=== PATIENT | male | born 1950 | race Caucasian/White ===

== ENCOUNTER 2021-01-07 12:35 | Outpatient (CLI) | payer MEDICARE, BC, SELFPAY | END 2021-01-07 12:36 | disposition home or self-care (01) | LOC: CHSLAB 12:36 | PROVIDERS: Visit Provider Specialist | DX: L85.9 Epidermal thickening, unspecified (principal) | CPT/HCPCS: 88305 ==

== ENCOUNTER 2024-10-23 10:42 | Emergency (ER) | payer MEDICARE, SELFPAY ==
[2024-10-23] VITALS (16 sets, daily range): BP systolic 120–144; BP diastolic 90–111; PULSE 80–116; RESP 18–27; TEMP 36.5–36.6; O2SAT 92–98
--- NOTE | ~2024-10-23 | XR_ITS ---
EXAMINATION: XR chest 1V portable Exam Date/Time: 10/23/2024 11:00 CDT HISTORY: chest pain, SOB, chest heaviness, congestion Comparison: None. RESULT: Lines, tubes, and devices: None. Lungs and pleura: Mid and lower lung reticular and patchy airspace opacities bilaterally. Mild right costophrenic angle blunting. Cardiomediastinal silhouette: Unremarkable. Other: No acute osseous or upper abdominal finding. IMPRESSION: Patchy mid and lower lung and bilateral airspace disease may represent edema or infection overlying c hronic interstitial/emphysematous change. Reviewed, dictated and finalized at [facility]. IMPRESSION: Patchy mid and lower lung and bilateral airspace disease may represent edema or infection overlying chronic interstitial/emphysematous change.
--- NOTE | ~2024-10-23 | CT_ITS ---
Clinical Indication: Chest pain CT Scan of the Chest with Contrast: Technique: Contiguous sections were acquired throughout the chest after intravenous administration of 100 cc of Omnipaque 350. Dose reduction technique was used on this scan by utilizing automated expos ure control and iterative reconstruction technique. The dose-length product (DLP) was 318.51 mGy-cm. Findings: There is no evidence of any significant mediastinal, hilar or axillary lymphadenopathy. There is no f illing defect in the pulmonary arterial tree to suggest pulmonary embolus. There is no evidence of ao rtic aneurysm. No pericardial effusion. There are moderate bilateral pleural effusions. Patchy groundglass opacities in the aerated lungs is most compatible with pulmonary edema. Mild interstitial edema as well. Images through the upper abdomen reveal no abnormalities. Impression: No pulmonary embolus. Moderate bilateral pleural effusions with mild mixed alveolar and interstitial pulmonary edema. Reviewed, dictated and finalized at [facility]. Impression: No pulmonary embolus. Moderate bilateral pleural effusions with mild mixed alveolar and interstitial pulmonary edema.
--- NOTE | 2024-10-23 10:55 | ECG_ITS ---
Test Date: 2024-10-23 10:52:37 Measurements Intervals [place] Rate: 112 P: 57 IN: 159 QRS: 55 QRSD: 102 T: 80 QT: 319 QTc: 436 Interpretive Statements SINUS TACHYCARDIA ABNORMAL RHYTHM ECG No previous ECG available for comparison Electronically Signed On 10-23-2024 22:17:59 CDT by Arnold Henry M.D.
[2024-10-23 11:15] LABS: Hematocrit 37.9 % (37.0-46.0); Hemoglobin 12.2 g/dL (12.4-15.3); Immature Granulocyte Percent A 0.4 % (0.0-0.0); Lymphocytes Absolute Auto 1.27 K/mm3 (1.10-4.50); Mean Corpuscular HGB Conc 32.2 g/dL (32-36); Mean Corpuscular Hemoglobin 29.5 pg (27.0-31.0); Mean Corpuscular Volume 91.8 fL (78.0-102.0); Nucleated Red Blood Cells Absolute Auto 0.00 K/mm3 (0.00-0.00); Nucleated Red Blood Cells Perc 0.0 % (0-0.0); Platelet Count Result 317 K/mm3 (150-420); Red Blood Count 4.13 M/mm3 (4.70-6.10); White Blood Count 8.5 K/mm3 (4.8-10.8)
[2024-10-23 11:28] LABS: Alanine Aminotransferase 40 U/L (6-50); Albumin Level 4.2 g/dL (3.5-5.1); Alkaline Phosphatase 91 U/L (38-126); Anion Gap 10 mmol/L (4-12); Aspartate Amino Transferase 45 U/L (17-59); Bilirubin,Total 0.9 mg/dL (0.2-1.3); Blood Urea Nitrogen 27 mg/dL (9-20); Calcium 9.0 mg/dL (8.4-10.2); Carbon Dioxide 23 mmol/L (22-30); Chloride 101 mmol/L (98-107); Estimated CRCL calculation 36 ml/min; Estimated Glomerular Filt Rate 49; Glucose 115 mg/dL (65-110); Lipase 63 U/L (23-300); Osmolality Calculated 284 mOsm/kg (285-295); Potassium 4.6 mmol/L (3.4-5.0); Sodium 134 mmol/L (137-145); Total Protein 7.4 g/dL (6.3-8.2)
--- NOTE | 2024-10-23 11:29 | PC.NURSE ---
PATIENT IS RESTING ON STRETCHER. CALL LIGHT IN REACH. DENIES ANY OTHER NEEDS AT THIS TIME.
[2024-10-23 11:30] LABS: INR 1.1; Partial Thromboplastin Time 24.2 Sec (23.9-30.70); Prothrombin Time 12.5 Seconds (9.50-12.1)
[2024-10-23 11:40] LABS: NT Pro B Type Natriuretic Pept 20900 pg/mL (19.9-100); Troponin I 0.026 ng/mL (0.000-0.034)
[2024-10-23 11:50] LABS: Influenza A QL RT-PCR Negative (Negative); Influenza B QL RT-PCR Negative (Negative); RSV RNA, RT-PCR Negative (Negative); SARS-CoV-2 RNA PCR Negative (Negative)
[2024-10-23 12:08] LABS: Add Urine Microscopic? YES; Appearance Urine Clear (Clear); Glucose Urine UA Negative (Negative); Leukocyte Esterase Ur Negative LEU/UL (Negative); Nitrate Urine Negative (Negative); Specific Grav Ur >= 1.030 (1.010-1.020)
--- NOTE | 2024-10-23 12:21 | PC.NURSE ---
PATIENT TRANSPORTED TO RADIOLOGY VIA WHEEL CHAIR
[2024-10-23] MEDS: FUROSEMIDE INJ 40 MG/4 ML VIAL IV PUSH (12:32)
--- NOTE | 2024-10-23 12:36 | PC.NURSE ---
PATIENT WAS GIVEN URINAL. PATIENT IS CALL OUT FOR ASSISTANCE. PATIENT IS AWARE THAT LASIX WILL MAKE HIM HAVE TO VOID. CALL LIGHT IN REACH
[2024-10-23] MEDS: METOPROLOL TARTRATE INJ 5 MG/5 ML VIAL IV PUSH (13:23)
--- NOTE | 2024-10-23 13:30 | PC.NURSE ---
PATIENT GETTING ANNOYED THAT HE IS STILL IN THE ED. PATIENT IS WANTING TO GO HOME.
[2024-10-23 14:09] LABS: Troponin I 0.036 ng/mL (0.000-0.034)
--- NOTE | 2024-10-23 14:15 | PC.NURSE ---
PATIENT IS WANTING TO LEAVE AMA. DR WRIGHT HAS BEEN NOTIFIED.
[2024-10-23] MEDS: ASPIRIN 81 MG CHEWABLE TABLET 324 MG PO (14:21)
--- NOTE | 2024-10-23 14:24 | ED_ITS ---
HPI - SOB/Dyspnea General Chief Complaint: Shortness of Breath/Dyspnea Stated Complaint: chest pain Time Seen by Provider: 10/23/24 10:47 Source: patient Mode of arrival: ambulatory Limitations: no limitations History of Present Illness HPI Narrative: this is a 74-year-old male with no significant past medical history but has not seen a doctor in nearly 10 years, presents with shortness of breath with some chest discomfort no fever chills no cough or congestion with some mild peripheral edema. MD elicited complaint: shortness of breath Onset (ago): day(s) Timing: intermittent Severity: moderate Related Data Home Medications ?Medication ?Instructions ?Recorded ?Confirmed ?Last Taken ?Type No Home Medications 10/23/24 10/23/24 Unknown History Allergies Allergy/AdvReac Type Severity Reaction Status Date / Time No Known Allergies Allergy Verified 10/23/24 11:12 Review of Systems 2 Review of Systems: All systems reviewed & are unremarkable except as noted in HPI and below PMFSH Past Medical History Medical History Patient denies medical problems Exam 2 Const: General: no acute distress Nutritional Appearance: well nourished Orientation/consciousness: patient oriented x3 HENMT: Head: normal to inspection Neck: Neck: normal visual inspection, no lymphadenopathy and no meningeal signs Resp: Effort & Inspection: normal respiratory effort Auscultation: d iminished lung sounds Cardio: Rate: tachycardic Rhythm: regular rhythm GI: GI Palp: Yes Soft to palpation Auscultation: normal bowel sounds : General: Yes bladder normal to palpation Skin: General skin exam: normal color Rashes: no rashes Wounds: no wounds Neuro: General: patient oriented x3, moves all extremities, no meningeal signs and no focal motor deficits Extrem: General: edema Course Course Emergency Course: patient has elevated D-dimer and CTA performed which shows bilateral pleural effusions, his BNP was over 20,000, patient did receive IV Lasix and with EKG showing no ST or T changes but sinus tachycardia received 5mg IV metoprolol and current heart rate is 93, vital signs blood pressure 120/98 troponins have initially a 0.026 and subsequent troponin 0.036 patient adamant about leaving and does not want to go anywhere and does not want to be transferred and patient wants to sign out AMA. Id clear that I have personally explained to the patient the risks and consequences involved in leaving this facility at this time the benefits of continued treatment and our hospitalization and the alternatives if any to continued treatment and our hospitalization if applicable. I have not identified any psychosis drugs or mental illness or medical illness that alters decision-making capacity or wheezing ability. Vital Signs Vital signs: Vital Signs Temperature 36.5 C 10/23/24 10:42 Pulse Rate 114 H 10/23/24 10:42 Respiratory Rate 18 10/23/24 10:42 Blood Pressure 132/99 H 10/23/24 10:42 Pulse Oximetry 97 10/23/24 10:42 Oxygen Delivery Room Air 10/23/24 10:42 Temperature 36.5 C 10/23/24 10:42 Pulse Rate 93 10/23/24 13:30 Respiratory Rate 24 H 10/23/24 13:30 Blood Pressure 124/99 H 10/23/24 13:26 Pulse Oximetry 92 10/23/24 13:30 Oxygen Delivery Room Air 10/23/24 13:30 MDM - SOB/Dyspnea Lab Data 10/23/24 11:07 10/23/24 11:07 Labs: Lab Results 10/23/24 10/23/24 10/23/24 Range/Units 10:55 11:07 11:07 WBC 8.5 (4.8-10.8) K/mm3 RBC 4.13 L (4.70-6.10) M/mm3 Hgb 12.2 L (12.4-15.3) g/dL Hct 37.9 (37.0-46.0) % MCV 91.8 (78.0-102.0) fL MCH 29.5 (27.0-31.0) pg MCHC 32.2 (32-36) g/dL RDW 13.9 (11.6-14.4) % Plt Count 317 (150-420) K/mm3 MPV 8.7 (8.7-11.0) fl Immature Gran % (Auto) 0.4 H (0.0-0.0) % Neut % (Auto) 76.9 H (50.0-70.0) % Lymph % (Auto) 14.9 L (18.0-42.0) % [place] % (Auto) 6.8 (2.0-11.0) % Eos % (Auto) 0.5 L (1.0-6.0) % Baso % (Auto) 0.5 (0.0-1.0) % Lymph # (Auto) 1.27 (1.10-4.50) K/mm3 [place] # (Auto) 0.58 (0.10-0.90) K/mm3 Eos # (Auto) 0.04 (0.02-0.50) K/mm3 Baso # (Auto) 0.04 (0.00-0.10) K/mm3 Abs Immat Gran (auto) 0.03 H (0.00-0.00) K/mm3 Absolute Neuts (auto) 6.58 (1.70-7.20) K/mm3 Absolute Nucleated RBC 0.00 (0.00-0.00) K/mm3 Nucleated RBC % 0.0 (0-0.0) % PT 12.5 H (9.50-12.1) Seconds INR 1.1 APTT 24.2 (23.9-30.70) Sec D-Dimer 1.38 H (0.19-0.50) mg/L Sodium 134 L (137-145) mmol/L Potassium 4.6 (3.4-5.0) mmol/L Chloride 101 (98-107) mmol/L Carbon Dioxide 23 (22-30) mmol/L Anion Gap 10 (4-12) mmol/L BUN 27 H (9-20) mg/dL Creatinine 1.41 H (0.7-1.3) mg/dL Estim Creat Clear Calc 36 ml/min Estimated GFR 49 L (59 - ) Glucose 115 H (65-110) mg/dL Calculated Osmolality 284 L (285-295) mOsm/kg Calcium 9.0 (8.4-10.2) mg/dL Total Bilirubin 0.9 (0.2-1.3) mg/dL AST 45 (17-59) U/L ALT 40 (6-50) U/L Alkaline Phosphatase 91 (38-126) U/L Troponin I 0.026 (0.000-0.034) ng/mL NT-Pro-B Natriuret Pep 53374 H Cancelled (19.9-100) pg/mL Total Protein 7.4 (6.3-8.2) g/dL Albumin 4.2 (3.5-5.1) g/dL Lipase 63 (23-300) U/L Urine Color Yellow (Yellow) Urine Appearance Clear (Clear) Urine pH 5.5 (5.0-8.0) Ur Specific [place] >= 1.030 H (1.010-1.020) Urine Protein 2+ H (Negative) Urine Glucose (UA) Negative (Negative) Urine Ketones 1+ H (Negative) Ur Blood (Man) Negative (Negative) Urine Nitrate Negative (Negative) Urine Bilirubin Negative (Negative) Urine Urobilinogen 0.2 (0.2-1.0) mg/dL Leukocyte Esterase Rfl Negative (Negative) SHAUN/UL Urine RBC None seen (0-2) /hpf Urine WBC None seen (0-3) /hpf Urine Bacteria Trace (None) /hpf Hyaline Casts 5-9 H (None) /lpf Granular Casts 1-2 H (None) /lpf Influenza A (RT-PCR) Negative (Negative) Influenza B (RT-PCR) Negative (Negative) RSV (RT-PCR) Negative (Negative) SARS-CoV-2 RNA (RT-PCR) Negative (Negative) 10/23/24 Range/Units 13:41 WBC (4.8-10.8) K/mm3 RBC (4.70-6.10) M/mm3 Hgb (12.4-15.3) g/dL Hct (37.0-46.0) % MCV (78.0-102.0) fL MCH (27.0-31.0) pg MCHC (32-36) g/dL RDW (11.6-14.4) % Plt Count (150-420) K/mm3 MPV (8.7-11.0) fl Immature Gran % (Auto) (0.0-0.0) % Neut % (Auto) (50.0-70.0) % Lymph % (Auto) (18.0-42.0) % [place] % (Auto) (2.0-11.0) % Eos % (Auto) (1.0-6.0) % Baso % (Auto) (0.0-1.0) % Lymph # (Auto) (1.10-4.50) K/mm3 [place] # (Auto) (0.10-0.90) K/mm3 Eos # (Auto) (0.02-0.50) K/mm3 Baso # (Auto) (0.00-0.10) K/mm3 Abs Immat Gran (auto) (0.00-0.00) K/mm3 Absolute Neuts (auto) (1.70-7.20) K/mm3 Absolute Nucleated RBC (0.00-0.00) K/mm3 Nucleated RBC % (0-0.0) % PT (9.50-12.1) Seconds INR APTT (23.9-30.70) Sec D-Dimer (0.19-0.50) mg/L Sodium (137-145) mmol/L Potassium (3.4-5.0) mmol/L Chloride (98-107) mmol/L Carbon Dioxide (22-30) mmol/L Anion Gap (4-12) mmol/L BUN (9-20) mg/dL Creatinine (0.7-1.3) mg/dL Estim Creat Clear Calc ml/min Estimated GFR (59 - ) Glucose (65-110) mg/dL Calculated Osmolality (285-295) mOsm/kg Calcium (8.4-10.2) mg/dL Total Bilirubin (0.2-1.3) mg/dL AST (17-59) U/L ALT (6-50) U/L Alkaline Phosphatase (38-126) U/L Troponin I 0.036 H* D (0.000-0.034) ng/mL NT-Pro-B Natriuret Pep (19.9-100) pg/mL Total Protein (6.3-8.2) g/dL Albumin (3.5-5.1) g/dL Lipase (23-300) U/L Urine Color (Yellow) Urine Appearance (Clear) Urine pH (5.0-8.0) Ur Specific [place] (1.010-1.020) Urine Protein (Negative) Urine Glucose (UA) (Negative) Urine Ketones (Negative) Ur Blood (Man) (Negative) Urine Nitrate (Negative) Urine Bilirubin (Negative) Urine Urobilinogen (0.2-1.0) mg/dL Leukocyte Esterase Rfl (Negative) SHAUN/UL Urine RBC (0-2) /hpf Urine WBC (0-3) /hpf Urine Bacteria (None) /hpf Hyaline Casts (None) /lpf Granular Casts (None) /lpf Influenza A (RT-PCR) (Negative) Influenza B (RT-PCR) (Negative) RSV (RT-PCR) (Negative) SARS-CoV-2 RNA (RT-PCR) (Negative) Critical Care Time Critical Care Time Critical Care Time: No Discharge Plan Discharge Clinical Impression: Elevated troponin Patient Disposition: Left Against Medical Advice Condition: Stable Patient Language: Faroese Prescriptions: No Action No Home Medications Follow-up/Referrals: Bo Rodriguez MD [Primary Care Provider] - Time of Disposition: 14:29
--- NOTE | 2024-10-23 14:30 | PC.NURSE ---
PATIENT SIGNED AMA FORM. CONTINUES TO WANT TO LEAVE. ENCOURAGED PATIENT TO STAY FOR CONTINUED MONITORING. PATIENT WAS GIVEN AND EDUCATED ON RISKS AND BENEFITS OF LEAVING AMA. PATIENT VERBALIZED UNDERSTANDING FROM DR WRIGHT AND NURSING STAFF
--- NOTE | 2024-10-25 12:22 | PC.NURSE ---
PRELIMINARY BLOOD CULTURE NO GROWTH TO DATE
--- NOTE | 2024-10-30 12:15 | PC.NURSE ---
Final blood culture report; no growth in 5 days.
== END 2024-10-23 14:35 | disposition left against medical advice (07) ==
PROVIDERS: Emergency Provider Emergency Medicine; PCP Family Medicine
DX: R79.89 Other specified abnormal findings of blood chemistry (principal); Z20.822 Contact with and (suspected) exposure to COVID-19
CPT/HCPCS: 36415; 71045; 71275; 80053; 81001; 83690; 83880; 84484; 85025; 85380; 85610; 85730; 87040; 87637; 93005; 96374; 96375; 99284; A9270; J0616; J1938; Q9967

== ENCOUNTER 2024-10-30 09:38 | Emergency (ER) | payer MEDICARE, SELFPAY ==
[2024-10-30] VITALS (82 sets, daily range): BP systolic 116–146; BP diastolic 65–113; PULSE 87–101; RESP 18–34; TEMP 36.6–36.7; O2SAT 92–100
--- NOTE | ~2024-10-30 | XR_ITS ---
XR chest 1V portable Ordering provider: Reed Dean MD History: 74 years Male with . EXTREME SOB . Comparison: November 02, 2024 FINDINGS: MEDIASTINUM: The cardiac silhouette is moderately enlarged. Congestive augustina. LUNGS: No effusions or pneumothorax. Bilateral interstitial and alveolar thickening. Possible nodules in the right parahilar area. Follow-up advised. OTHER: No free air under the diaphragm. IMPRESSION: Cardiomegaly with congestive augustina. Bilateral alveolar and interstitial opacification which may indicate pulmonary edema. Possible nodules in the right parahilar area. Follow-up advised Reviewed, dictated and finalized at location A.
--- NOTE | ~2024-10-30 | CT_ITS ---
EXAMINATION: CT abdomen pelvis wo con DATE: 10/30/2024 11:23 INDICATION: Elevated liver enzymes TECHNIQUE: Computed tomography (CT) of the abdomen and pelvis was performed without intravenous contr ast. Automated exposure control and iterative reconstruction technique were employed. The dose-length product was 301.69 mGy-cm. COMPARISON: Chest CT dated 10/23/2024 FINDINGS: No significant change in peripheral predominant reticulonodular opacities at the bilateral lung bases and small bilateral posterior layering pleural effusions. Cardiomegaly. Atherosclerotic coronary art ayla calcific location. No pericardial effusion. Diffuse hepatic steatosis. Small amount of fluid atte nuation situated between the normal partially decompressed gallbladder and the liver at the gallbladd er fossa which could represent small amount of pericholecystic fluid or mild edematous wall thickenin g of the gallbladder. No evident intra-axial hepatic biliary ductal dilation. The spleen, pancreas an d bilateral adrenal glands are normal. Prominent scattered diverticulosis throughout the colon withou t adjacent from trace stranding to suggest diverticular colitis. Small bowel and appendix are normal. Bladder is normal. Prostatomegaly measuring 4.1 x 3.1 cm. Fat and small amount of ascites within a s mall right femoral hernia. No pathologically enlarged abdominal or pelvic lymphadenopathy. Multiple p hleboliths in the pelvis. Prominent heterotopic ossifications near the tip of the right greater troch anter. Mild scattered degenerative skeletal changes in the pelvis and visualized spine. IMPRESSION: 1. Persistent reticular nodular opacities at the bilateral lung bases which could represent chronic i nterstitial lung disease or some more acute combination of atelectasis, mild pulmonary edema and/or p neumonia. 2. Small bilateral pleural effusions. 3. Cardiomegaly. 4. Mild edematous wall thickening of the partially decompressed gallbladder versus small amount of pe richolecystic fluid at the bladder fossa. No surrounding inflammatory stranding which along with the absence of gallbladder dilation argues against acute cholecystitis. This can be seen secondary to baljeet er disease or congestive heart failure. 5. Diffuse hepatic steatosis. 6. Diverticulosis. 7. Prostatomegaly. 8. Small amount of fat and fluid within a small right femoral hernia. Reviewed, dictated and finalized at location A. IMPRESSION: 1. Persistent reticular nodular opacities at the bilateral lung bases which cou ld represent chronic interstitial lung disease or some more acute combination o f atelectasis, mild pulmonary edema and/or pneumonia. 2. Small bilateral pleural effusions. 3. Cardiomegaly. 4. Mild edematous wall thickening of the partially decompressed gallbladder harrison gabriel small amount of pericholecystic fluid at the bladder fossa. No surrounding inflammatory stranding which along with the absence of gallbladder dilation arg ues against acute cholecystitis. This can be seen secondary to liver disease or congestive heart failure. 5. Diffuse hepatic steatosis. 6. Diverticulosis. 7. Prostatomegaly. 8. Small amount of fat and fluid within a small right femoral hernia.
--- NOTE | ~2024-10-30 | XR_ITS ---
XR abdomen/kub 1V Ordering provider: Reed Dean MD History: . Constipation X 4 days . Comparison: None. FINDINGS: BOWEL: Fecal material is loaded in the colon. Nonobstructive bowel gas pattern. ORGANOMEGALY: None. SIGNIFICANT PATHOLOGIC CALCIFICATIONS: None. OTHER: No free air is seen under the diaphragm. Bilateral hip osteoarthritic changes. Bilateral sacroiliacs. Degenerative the spine. IMPRESSION: NO ACUTE ABDOMINAL FINDINGS. Constipation. Reviewed, dictated and finalized at location A.
--- NOTE | 2024-10-30 09:45 | ECG_ITS ---
Test Date: 2024-10-30 10:19:37 Measurements Intervals [place] Rate: 95 P: 46 [place]: 172 QRS: -8 QRSD: 105 T: 149 QT: 359 QTc: 453 Interpretive Statements SINUS RHYTHM CANNOT RULE OUT PREVIOUS INFERIOR INFARCTION NONSPECIFIC T-WAVE ABNORMALITY ABNORMAL ECG Compared to ECG 10/23/2024 10:52:37 LOSS OF R-WAVE VOLTAGE IN LEAD 3, LIKELY ALTER LEAD POSITION, NO OTHER CHANGE Electronically Signed On 10-31-2024 10:21:56 CDT by Romel Hardy M.D.
--- NOTE | 2024-10-30 09:45 | ED.SOB ---
HPI - SOB/Dyspnea General Chief Complaint: Shortness of Breath/Dyspnea Stated Complaint: edema Time Seen by Provider: 10/30/24 09:43 Source: patient Mode of arrival: ambulatory Limitations: no limitations History of Present Illness HPI Narrative: 74 years old white male came to the ED by private car from home complaining of shortness of breath for the last few days was seen in our emergency room on October 23 for the same complain, and was diagnosed with elevated troponin and patient left against medical advice.2 days later patient was seen by his family physician And was discharged on metoprolol 25 mg once a day, Lasix 20 mg once a day with a diagnosis of congestive heart failure. Patient reported getting a little bit better but his shortness of breath got worse over the last 3 days. Patient reports no bowel movement over the last 4 days, his not eating for the last 2 days because of poor appetite. He denies any chest pain back pain abdominal pain. Patient lives alone, healthy otherwise. He does not smoke or drink or use drugs Related Data Home Medications ?Medication ?Instructions ?Recorded ?Confirmed ?Last Taken ?Type apple cider vinegar 250 mg mg PO 10/25/24 10/25/24 Unknown History chewable tablet cinnamon bark 500 mg capsule 500 mg PO DAILY 10/25/24 10/25/24 Unknown History (Cinnamon) ginkgo biloba 40 mg tablet 40 mg PO DAILY 10/25/24 10/25/24 Unknown History pseudoephedrine-ibuprofen 30 cap PO 10/25/24 10/25/24 Unknown History mg-200 mg capsule (Advil Cold and Sinus) psyllium husk 0.4 gram capsule 0.4 g PO DAILY 10/25/24 10/25/24 Unknown History (Daily Fiber) resveratrol 100 mg capsule mg PO 10/25/24 10/25/24 Unknown History saw palmetto 450 mg capsule 450 mg PO BID 10/25/24 10/25/24 Unknown History Allergies Allergy/AdvReac Type Severity Reaction Status Date / Time No Known Allergies Allergy Verified 10/30/24 09:52 Review of Systems Review of Systems: All systems reviewed & are unremarkable except as noted in HPI and below PMFSH Past Medical History Medical History Acute bacterial sinusitis Patient denies medical problems Surgical History Surgical History History of tonsillectomy Hx of foot surgery History of facial surgery History of hernia surgery Family History Family History Father Heart disease Mother Heart disease Social History Social History Smoking status: Former smoker Smoking end date: 04/19/79 Alcohol intake: former Substance use: never Do You Feel Safe in your Home?: Yes Lack of Transportation: No Lack of Food: Never True Current Housing: I Have Housing Concerned About Future Housing: No Difficulty Paying Gas/Electric Bills: No Difficulty Paying for Meds: No Currently Unemployed: No Education: High School Diploma/GED Difficulty w/ Childcare or Family Care: No Living arrangements: alone Occupation/Education: retired Gender identity (if verbalized by the patient): Male Sexual Orientation (if Verbalized by the Patient): Straight or Heterosexual Spiritual care concerns: No Agree to blood products: Yes Exam Narrative: General appearance: Well-developed, well-nourished Skin: Normal color, trace edema lower extremity bilaterally Head: Normocephalic, nontraumatic Eyes: Clear conjunctiva ENT: Oropharynx normal, ears normal, nose normal Neck: Supple, nontender Chest and respiratory: Airway patent, no respiratory distress, no accessory muscle use Heart: Regular rate/rhythm Abdomen: Soft, nontender, no organomegaly, quiet bowel sounds Vascular: Normal peripheral pulses, normal capillary refill. 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, no gross motor deficit Course Vital Signs Vital signs: Vital Signs Temperature 36.7 C 10/30/24 09:46 Pulse Rate 98 10/30/24 09:46 Respiratory Rate 20 10/30/24 09:46 Blood Pressure 134/103 H 10/30/24 09:46 Pulse Oximetry 100 10/30/24 09:46 Oxygen Delivery Room Air 10/30/24 09:46 Temperature 36.6 C 10/30/24 21:30 Pulse Rate 94 10/30/24 21:30 Respiratory Rate 18 10/30/24 21:30 Blood Pressure 126/86 10/30/24 19:46 Pulse Oximetry 98 10/30/24 21:30 Oxygen Delivery Room Air 10/30/24 21:30 MDM - SOB/Dyspnea MDM Narrative Medical decision making narrative: patient presents with shortness of breath for a while and no bowel movement for the last 4 days Vital signs showing blood pressure 134/103 otherwise within normal limit Physical examination showing depressed patient, trace edema lower extremity bilaterally otherwise within normal limit Differential diagnosis include congestive heart failure, coronary artery disease, electrolyte imbalance, dehydration, constipation Blood workup today includes CBC, CMP, troponin, coag and pro BMP showed WBC 12.3, INR 1.7, potassium 5.8, anion gap 18, BUN 53, creatinine 3.2, total bilirubin 2.1, troponin of 0.045 EKG showed normal sinus rhythm Chest x-ray showed pulmonary edema Diagnosis CHF, elevated troponin, elevated liver enzyme, KASEY, hyperkalemia Patient declined to go to any facility except [facility]. Waiting for bed availability Patient has been in our emergency room for average 12 hours, getting tired, agreed to try another facility. He is accepted for transferred to [facility] discussed with hospitalist Differential Diagnosis Differential diagnosis: Likely other ( as above) Medical Records Attestation: I reviewed the patient's medical records. Lab Data Attestation: I reviewed the patient's lab results. 10/30/24 10:03 10/30/24 10:03 Labs: Lab Results 10/30/24 10/30/24 10/30/24 Range/Units 09:52 10:03 16:56 WBC 12.3 H (4.8-10.8) K/mm3 RBC 4.53 L (4.70-6.10) M/mm3 Hgb 13.5 (12.4-15.3) g/dL Hct 41.9 (37.0-46.0) % MCV 92.5 (78.0-102.0) fL MCH 29.8 (27.0-31.0) pg MCHC 32.2 (32-36) g/dL RDW 14.2 (11.6-14.4) % Plt Count 206 (150-420) K/mm3 MPV 9.5 (8.7-11.0) fl Immature Gran % (Auto) 0.8 H (0.0-0.0) % Neut % (Auto) 80.8 H (50.0-70.0) % Lymph % (Auto) 9.2 L (18.0-42.0) % [place] % (Auto) 9.0 (2.0-11.0) % Eos % (Auto) 0.0 L (1.0-6.0) % Baso % (Auto) 0.2 (0.0-1.0) % Lymph # (Auto) 1.13 (1.10-4.50) K/mm3 [place] # (Auto) 1.11 H (0.10-0.90) K/mm3 Eos # (Auto) 0.00 L (0.02-0.50) K/mm3 Baso # (Auto) 0.03 (0.00-0.10) K/mm3 Abs Immat Gran (auto) 0.10 H (0.00-0.00) K/mm3 Absolute Neuts (auto) 9.92 H (1.70-7.20) K/mm3 Absolute Nucleated RBC 0.00 (0.00-0.00) K/mm3 Nucleated RBC % 0.0 (0-0.0) % PT 18.0 H (9.50-12.1) Seconds INR 1.7 APTT 25.0 (23.9-30.70) Sec Sodium 139 (137-145) mmol/L Potassium 5.8 H (3.4-5.0) mmol/L Chloride 99 (98-107) mmol/L Carbon Dioxide 22 (22-30) mmol/L Anion Gap 18 H (4-12) mmol/L BUN 53 H D (9-20) mg/dL Creatinine 3.29 H (0.7-1.3) mg/dL Estim Creat Clear Calc Not Reportable Estimated GFR 18 L (59 - ) Glucose 111 H (65-110) mg/dL Calculated Osmolality 303 H (285-295) mOsm/kg Calcium 9.1 (8.4-10.2) mg/dL Total Bilirubin 2.1 H (0.2-1.3) mg/dL AST > 1500 H (17-59) U/L ALT > 1000 H (6-50) U/L Alkaline Phosphatase 122 (38-126) U/L Troponin I 0.045 H* 0.034 D (0.000-0.034) ng/mL NT-Pro-B Natriuret Pep > 56769 H (19.9-100) pg/mL Total Protein 7.6 (6.3-8.2) g/dL Albumin 4.3 (3.5-5.1) g/dL Lipase 44 (23-300) U/L 10/30/24 10/30/24 Range/Units 20:11 21:51 WBC (4.8-10.8) K/mm3 RBC (4.70-6.10) M/mm3 Hgb (12.4-15.3) g/dL Hct (37.0-46.0) % MCV (78.0-102.0) fL MCH (27.0-31.0) pg MCHC (32-36) g/dL RDW (11.6-14.4) % Plt Count (150-420) K/mm3 MPV (8.7-11.0) fl Immature Gran % (Auto) (0.0-0.0) % Neut % (Auto) (50.0-70.0) % Lymph % (Auto) (18.0-42.0) % [place] % (Auto) (2.0-11.0) % Eos % (Auto) (1.0-6.0) % Baso % (Auto) (0.0-1.0) % Lymph # (Auto) (1.10-4.50) K/mm3 [place] # (Auto) (0.10-0.90) K/mm3 Eos # (Auto) (0.02-0.50) K/mm3 Baso # (Auto) (0.00-0.10) K/mm3 Abs Immat Gran (auto) (0.00-0.00) K/mm3 Absolute Neuts (auto) (1.70-7.20) K/mm3 Absolute Nucleated RBC (0.00-0.00) K/mm3 Nucleated RBC % (0-0.0) % PT (9.50-12.1) Seconds INR APTT (23.9-30.70) Sec Sodium Pending (137-145) mmol/L Potassium Pending (3.4-5.0) mmol/L Chloride Pending (98-107) mmol/L Carbon Dioxide Pending (22-30) mmol/L Anion Gap Pending (4-12) mmol/L BUN Pending (9-20) mg/dL Creatinine Pending (0.7-1.3) mg/dL Estim Creat Clear Calc Pending Estimated GFR Pending (59 - ) Glucose Pending (65-110) mg/dL Calculated Osmolality Pending (285-295) mOsm/kg Calcium Pending (8.4-10.2) mg/dL Total Bilirubin Pending (0.2-1.3) mg/dL AST Pending (17-59) U/L ALT Pending (6-50) U/L Alkaline Phosphatase Pending (38-126) U/L Troponin I 0.043 H* D (0.000-0.034) ng/mL NT-Pro-B Natriuret Pep (19.9-100) pg/mL Total Protein Pending (6.3-8.2) g/dL Albumin Pending (3.5-5.1) g/dL Lipase (23-300) U/L Imaging Data My impression: Impressions Abdomen X-Ray 10/30/24 10:27 IMPRESSION: NO ACUTE ABDOMINAL FINDINGS. Constipation. Chest X-Ray 10/30/24 10:29 IMPRESSION: Cardiomegaly with congestive augustina. Bilateral alveolar and interstitial opacification which may indicate pulmonary edema. Possible nodules in the right parahilar area. Follow-up advised Abdomen/Pelvis CT 10/30/24 11:28 IMPRESSION: 1. Persistent reticular nodular opacities at the bilateral lung bases which could represent chronic interstitial lung disease or some more acute combination of atelectasis, mild pulmonary edema and/or pneumonia. 2. Small bilateral pleural effusions. 3. Cardiomegaly. 4. Mild edematous wall thickening of the partially decompressed gallbladder versus small amount of pericholecystic fluid at the bladder fossa. No surrounding inflammatory stranding which along with the absence of gallbladder dilation argues against acute cholecystitis. This can be seen secondary to liver disease or congestive heart failure. 5. Diffuse hepatic steatosis. 6. Diverticulosis. 7. Prostatomegaly. 8. Small amount of fat and fluid within a small right femoral hernia. Radiologist's impression: Impressions Abdomen X-Ray 10/30/24 10:27 IMPRESSION: NO ACUTE ABDOMINAL FINDINGS. Constipation. Chest X-Ray 10/30/24 10:29 IMPRESSION: Cardiomegaly with congestive augustina. Bilateral alveolar and interstitial opacification which may indicate pulmonary edema. Possible nodules in the right parahilar area. Follow-up advised ECG Data EKG #1: Attestation: I personally reviewed and interpreted this ECG as follows: ECG completion date: 10/30/24 Interpretation: normal sinus rhythm at 95 beats per minute, nonspecific ST T-wave abnormality, abnormal EKG Critical Care Time Critical Care Time Critical Care Time: Yes Total Critical Care Time: 60 Discharge Plan Discharge Clinical Impression: CHF (congestive heart failure), KASEY (acute kidney injury), Elevated liver enzymes, Acute hyperkalemia Patient Disposition: Acute Care Hospital Condition: Guarded Prognosis Patient Language: Chinese Prescriptions: No Action saw palmetto 450 mg capsule 450 mg PO BID cinnamon bark [Cinnamon] 500 mg capsule 500 mg PO DAILY apple cider vinegar 250 mg tablet,chewable PO resveratrol 100 mg capsule PO ginkgo biloba 40 mg tablet 40 mg PO DAILY Rx Instructions: give with meal/snack psyllium husk [Daily Fiber] 0.4 gram capsule 0.4 g PO DAILY Advil Cold and Sinus 30-200 mg capsule PO metoprolol succinate 25 mg tablet extended release 24 hr 25 mg PO DAILY Qty: 90 0RF torsemide 20 mg tablet 20 mg PO QAM Qty: 90 0RF alfalfa 405 mg capsule 1 mg PO DIRECTED Qty: 30 3RF multivit,calc,xhd-IM-T6-lycop [One-A-Day Men's Complete] 240 mcg-30 mcg- 300 mcg tablet 1 tablet PO DAILY Qty: 30 2RF PreserVision AREDS-2 250-90-40-1 mg capsule 1 tablet PO BID Qty: 60 3RF B Complex Plus Vitamin C 89-22-98-5-300 mg capsule 1 cap PO DAILY Qty: 30 0RF Rx Instructions: give with food (meal/snack) ferrous sulfate 325 mg (65 mg iron) tablet,delayed release (DR/EC) 325 mg PO DAILY Qty: 30 0RF ashwagandha extract 120 mg capsule 120 mg PO DAILY Qty: 30 0RF omega 8-umr-zcy-fish oil [Fish Oil] 300-1,000 mg capsule,delayed release(DR/EC) 1 cap PO DAILY Qty: 30 3RF aspirin 325 mg tablet 325 mg PO DAILY Qty: 30 2RF Follow-up/Referrals: Regis Barros, [Primary Care Provider] -
[2024-10-30 10:09] LABS: Hematocrit 41.9 % (37.0-46.0); Hemoglobin 13.5 g/dL (12.4-15.3); Immature Granulocyte Percent A 0.8 % (0.0-0.0); Lymphocytes Absolute Auto 1.13 K/mm3 (1.10-4.50); Mean Corpuscular HGB Conc 32.2 g/dL (32-36); Mean Corpuscular Hemoglobin 29.8 pg (27.0-31.0); Mean Corpuscular Volume 92.5 fL (78.0-102.0); Nucleated Red Blood Cells Absolute Auto 0.00 K/mm3 (0.00-0.00); Nucleated Red Blood Cells Perc 0.0 % (0-0.0); Platelet Count Result 206 K/mm3 (150-420); Red Blood Count 4.53 M/mm3 (4.70-6.10); White Blood Count 12.3 K/mm3 (4.8-10.8)
[2024-10-30 10:21] LABS: Lipase 44 U/L (23-300)
[2024-10-30 10:21] LABS: Albumin Level 4.3 g/dL (3.5-5.1); Alkaline Phosphatase 122 U/L (38-126); Anion Gap 18 mmol/L (4-12); Bilirubin,Total 2.1 mg/dL (0.2-1.3); Blood Urea Nitrogen 53 mg/dL (9-20); Calcium 9.1 mg/dL (8.4-10.2); Carbon Dioxide 22 mmol/L (22-30); Chloride 99 mmol/L (98-107); Estimated Glomerular Filt Rate 18; Glucose 111 mg/dL (65-110); Osmolality Calculated 303 mOsm/kg (285-295); Potassium 5.8 mmol/L (3.4-5.0); Sodium 139 mmol/L (137-145); Total Protein 7.6 g/dL (6.3-8.2)
[2024-10-30 10:23] LABS: INR 1.7; Partial Thromboplastin Time 25.0 Sec (23.9-30.70); Prothrombin Time 18.0 Seconds (9.50-12.1)
[2024-10-30 10:55] LABS: Alanine Aminotransferase > 1000 U/L (6-50)
[2024-10-30 11:07] LABS: Aspartate Amino Transferase > 1500 U/L (17-59)
[2024-10-30 11:09] LABS: Troponin I 0.045 ng/mL (0.000-0.034)
[2024-10-30 11:10] LABS: NT Pro B Type Natriuretic Pept > 30000 pg/mL (19.9-100)
[2024-10-30] MEDS: FUROSEMIDE INJ 40 MG/4 ML VIAL 60 MG IV PUSH (11:38)
[2024-10-30] MEDS: SODIUM ZIRCONIUM CYCLOSILICATE 5 GM POWD.PACK 10 GM PO (11:38)
[2024-10-30] MEDS: ASPIRIN 81 MG CHEWABLE TABLET 324 MG PO (14:02)
--- NOTE | 2024-10-30 17:04 | PC.NURSE ---
1400 pt wants to wait for bed at [facility] per house sup we will have to wait for discharges pt placed in a hospital bed for comfort pt aware of wait for room at [facility]
[2024-10-30 17:29] LABS: Troponin I 0.034 ng/mL (0.000-0.034)
--- NOTE | 2024-10-30 19:20 | PC.NURSE ---
Pt report received from TAQUERIA Roy for continuation of care on day shift. Patient sons at bedside, RN monitoring. patient awaiting bed at transfer facility [facility].
--- NOTE | 2024-10-30 20:08 | PC.NURSE ---
cutter helper at bedside at this time for repeat troponin lab draw. sons at bedside. RN monitoring.
[2024-10-30 20:50] LABS: Troponin I 0.043 ng/mL (0.000-0.034)
--- NOTE | 2024-10-30 21:40 | PC.NURSE ---
patient given ice water per request. sons at bedside. RN provided patient update including [facility] boarding in their ER per malt house supervisor. Patient will have to remain here throughout this evening and into tomorrow if he wishes to be transferred to them. per patient and his family, okay to check with another facility for transition to higher level of care. call light within reach. RN monitoring.
--- NOTE | 2024-10-30 21:52 | ECG_ITS ---
Test Date: 2024-10-30 22:12:32 Measurements Intervals [place] Rate: 94 P: 44 UT: 167 QRS: 7 QRSD: 109 T: 93 QT: 360 QTc: 452 Interpretive Statements SINUS RHYTHM CANNOT EXCLUDE PREVIOUS INFERIOR INFARCTION NONSPECIFIC T-WAVE ABNORMALITY ABNORMAL ECG Compared to ECG 10/30/2024 10:19:37 NO DIFFERENCE Electronically Signed On 10-31-2024 10:24:11 CDT by Romel Hardy M.D.
[2024-10-30 22:00] LABS: Albumin Level 4.1 g/dL (3.5-5.1); Alkaline Phosphatase 108 U/L (38-126); Anion Gap 24 mmol/L (4-12); Bilirubin,Total 2.6 mg/dL (0.2-1.3); Blood Urea Nitrogen 62 mg/dL (9-20); Calcium 8.9 mg/dL (8.4-10.2); Carbon Dioxide 19 mmol/L (22-30); Chloride 97 mmol/L (98-107); Estimated Glomerular Filt Rate 15; Glucose 93 mg/dL (65-110); Osmolality Calculated 307 mOsm/kg (285-295); Potassium 5.4 mmol/L (3.4-5.0); Sodium 140 mmol/L (137-145); Total Protein 6.8 g/dL (6.3-8.2)
--- NOTE | 2024-10-30 23:21 | PC.NURSE ---
patient resting, update provided. patient awaiting EMS transfer to [facility].
[2024-10-30 23:25] LABS: Alanine Aminotransferase > 1000 U/L (6-50); Aspartate Amino Transferase > 3000 U/L (17-59)
[2024-10-31] VITALS: PULSE 93; O2SAT 97
[2024-10-31 00:01] VITALS: BP 132/90; PULSE 94; RESP 21
--- NOTE | 2024-10-31 00:25 | PC.NURSE ---
patient awake/alert, ambulatory to bathroom at this time with steady gait. patient awaiting EMS arrival for transfer to [facility].
== END 2024-10-31 00:55 | disposition short-term general hospital (02) ==
PROVIDERS: Emergency Provider Emergency Medicine; PCP Family Medicine
DX: I50.9 Heart failure, unspecified (principal); N17.9 Acute kidney failure, unspecified; R74.01 Elevation of levels of liver transaminase levels; E87.5 Hyperkalemia; Z87.891 Personal history of nicotine dependence
CPT/HCPCS: 36415; 71045; 74018; 74176; 80053; 83690; 83880; 84484; 85025; 85610; 85730; 93005; 96374; 99285; A9270; J1938

== ENCOUNTER 2024-11-20 13:48 | Outpatient (CLI) | payer MEDICARE, SELFPAY ==
--- OUTSIDE RECORDS SUMMARY | 2024-11-20 13:58 | XMS_ITS | Encounter Summary ---
Author Organization [facility] Address [address] [place] [address] Care Team Providers Care Computer Operations Manager Name Role Phone Vicenteplacido Regis RUTH Primary Care Provider [phone] Reason for Visit * Reason Comments Transitions Of Care Encounter Details Date Type Department Care Team (Latest Contact Info) Description 11/20/2024 [facility] [address] [place] [address] [phone] Lin Mauricio, TAQUERIA Transitions Of Care Social History Tobacco Use Types Packs/Day Years Used Date Smoking Tobacco: Former Cigarettes Smokeless Tobacco: Never Alcohol Use Standard Drinks/Week Comments Not Currently 0 (1 standard drink = 0.6 oz pur e alcohol) AUDIT-C Answer Date Recorded Q1: How often do you have a drink containing alcohol? Monthly or less 11/01/2024 Q2: How many drinks containi ng alcohol do you have on a typical day when you are drinking? Patient does not drink Q3: How often do you have si x or more drinks on one occasion? Never 11/01/2024 Overall Financial Resource Strain (CARDIA) Answe r Date Recorded How hard is it for you to pa y for the very basics like food, housing, medical care, and heating? Not hard at all 11/01/2024 [facility] [place] [facility] Occupat ional [facility] - Occupational Stress Questionnaire Answer Date Recorded Do you feel stress - tense, restless, nervous, or anxious, or unable to sleep at night because your mind is troubled all the time - these days? Not at all 11/01/2024 Hunger Vital Sign Answer Date Recorded Within the past 12 months, y ou worried that your food would run out before you got the money to buy more. Never true 11/02/19 25 Within the past 12 months, t he food you bought just didn't last and you didn't have money to get more. Never true 11/01/2024 PRAPARE - Transportation Answer Date Re corded In the past 12 months, has l ack of transportation kept you from medical appointments or from getting medications? No 10/17 In the past 12 months, has l ack of transportation kept you from meetings, work, or from getting things needed for daily living? No 11/01/2024 Housing Stability Vital Sign Answer Kevin e Recorded In the last 12 months, was t here a time when you were not able to pay the mortgage or rent on time? No 11/01/2024 In the past 12 months, how m any times have you moved where you were living? 0 11/01/2024 At any time in the past 12 m [facility], were you homeless or living in a longterm (including now)? No 11/01/2024 Sex and Gender Information Value Date Recorded Sex Assigned at Not on file Legal Sex Male 10:11 AM CDT Gender Identity Not on file Sexual Orientation Not on file documented as of this encounter Functional Status * Is person deaf or have serious hearing difficulty? Answer Date of Assessment Author No 11/17/2024 12:16 PM Livia Topete RN * Is person blind or have serious difficulty seeing? Answer Date of Assessment Author No 11/17/2024 12:16 PM Livia Topete RN * Does person have serious difficulty walking/climbing stairs? Answer Date of Assessment Author No 11/17/2024 12:16 PM Livia Topete RN * Does person have difficulty dressing/bathing? Answer Date of Assessment Author No 11/17/2024 12:16 PM Livia Topete RN * Does person have difficulty doing errands alone? Answer Date of Assessment Author No 11/17/2024 12:16 PM Livia Topete RN documented as of this encounter Mental Status * Does person have difficulty concentrating/remembering/making decisions? Answer Entry Date Author No 11/17/2024 12:16 PM CDT Livia Talavera RN documented in this encounter Miscellaneous Notes * Telephone Encounter - Lin Mauricio RN - 11/20/2024 11:21 AM CDT Transition Charge Poster(TCC) Viry Mauricio RN post discharge follow-up contact by telephone: Patientwith recent IP discharge from [facility]. TCC attempted to reach pt today by telephone ([phone]) to complete pt post discharge follow-upcontact. TCC was unable to reach pt at this time and left voice message. TCC encouraged pt in the voice message to call this director underwriter sales back when available to provide update since last follow-up contact.TCC will await call back from pt. TCC will continue to follow Patient for 30 days post- discharge with target end date of transition care program and intervention(s) set for 12/18. No immediate follow-up needs are identified pending contact from pt. [facility] appt date and time left on pt VM. Call Duration: 2 min Lin Mauricio RN, MSN Transition Charge Poster Office: [phone] 11/20/2024 documented in this encounter Plan of Treatment Upcoming Encounters Date Type Department Care Team (Late st Contact Info) Description 11/23/2024 10:30 AM CDT Office Visit Transitional Care at [address] [phone] documented as of this encounter Visit Diagnoses Not on filedocumented in this encounter Care Teams Computer Operations Manager Relationship Specialty Start Date End Date Regis Barros DO [address] [place] [phone] PCP - General Family Medicine 11/18/24 documented as of this encounter
--- OUTSIDE RECORDS SUMMARY | 2024-11-20 13:58 | XMS_ITS | Clinical Summary ---
Author Organization [facility] Care Team Providers Care Electronic Console Display Operator Name Role Phone Unavailable Primary Care Provider Unavailabl e Social History Tobacco Use Types Packs/Day Years Used Date Smoking Tobacco: Never Assessed Sex and Gender Information Value Date Recorded Sex Assigned at Not on file Legal Sex Male 10:49 PM CDT Gender Identity Not on file Sexual Orientation Not on file Plan of Treatment Upcoming Encounters Date Type Department Care Team (Late st Contact Info) Description 12/19/2024 4:00 PM CDT Office Visit [facility] - Cardiology - [place] [address] [place] [id number] Stephanie Noe, APRON MAN, FINISHING AREA OPERATOR [address] [address]
--- OUTSIDE RECORDS SUMMARY | 2024-11-20 13:58 | XMS_ITS | Clinical Summary ---
Author Organization [facility] Address [address] [place] [address] Care Team Providers Care Internet Ecommerce Specialist Name Role Phone Vicenteplacido Regis RUTH Primary Care Provider [phone] Source Comments [facility],non-owned Affiliates and Associated Physician Practices is amultiple site organization consisting of ambulatory clinics and hospital sitesin [place], [place], [place] and [place]. This disclosure is being madepursuant to the Care Everywhere program and may not contain all information available regarding this patient. Last updated 18.[facility] Allergies No known active allergies Medications * Be aware that medications may not be up to date on this document. Alwaysverify current medications with the patient. tamsulosin (Flomax) 0.4 MG capsule Take 1 (one) capsule by mouth once daily 11/03/19 25 Active metoprolol succinate XL 24hr (Toprol XL) 25 MG tablet Take 1 (one) tablet by mouth once daily 30 tablet 1 11/21/19 25 Active rosuvastatin (Crestor) 20 MG tablet Take 1 (one) tablet by mouth once daily 30 tablet 1 11/21/19 25 Active empagliflozin (Jardiance) 10 MG tabletIndications :Heart Failure Take 1 (one) tablet by mouth once daily Reasons: Cardiac Failure 30 tablet 1 11/21/19 25 Active acetaminophen (Tylenol) 500 MG tablet Take 1 (one) tablet by mouth every 6 hours as needed for Fever, Pain or Headache Maximum allowable Acetaminophen amount = 4 Grams (4000 mg) / 24 hours. 11/20/19 25 Active aspirin (Aspirin) 81 MG chew tabletIndications :Carotid Artery Stenting,Ischemic Cardiomyopathy Take 1 (one) tablet by mouth once daily (chew and swallow) Reasons: Carotid Artery Stenting, Ischemic Cardiomyopathy 30 tablet 1 11/21/19 25 Active spironolactone (Aldactone) 25 MG tablet Take 0.5 (one-half) tablet by mouth once daily 30 tablet 11/21/19 25 Active polyethylene glycol 3350 (Miralax) 17 g packetIndications :Constipation Take 17 (seventeen) g by mouth once daily as needed for Constipation Reasons: Constipation 11/20/19 25 Active senna (Senokot) 8.6 MG tablet Take 1 (one) tablet by mouth once daily as needed for Constipation 11/20/19 25 Active melatonin 3 MG tabletIndications :Insomnia Take 2 (two) tablets by mouth at bedtime Reasons: Trouble Sleeping 11/20/19 25 Active magnesium oxide (Mag-Ox) 400 MG tabletIndications :Hypomagnesemia Take 1 (one) tablet by mouth once daily Reasons: Disorder with Low Magnesium Levels 11/21/19 25 Active ticagrelor (Brilinta) 90 MG tabletIndications :Ischemic Cardiomyopathy,Ob structive Coronary Artery Disease,Presence of Coronary Artery Stent Take 1 (one) tablet by mouth 2 times daily Reasons: Coronary Artery Stent Present, Heart Artery Obstructed, Ischemic Cardiomyopathy 60 tablet 1 11/20/19 25 Active pantoprazole EC (Protonix) 40 MG tablet Take 1 (one) tablet by mouth once daily 30 tablet 1 11/21/19 25 Active furosemide (Lasix) 20 MG tabletIndications :Edema,Heart Failure Take 1 (one) tablet by mouth once daily as needed (take if developing edema, shortness of breath, or weight gain > 2 lbs) Reasons: Cardiac Failure, Edema 30 tablet 1 11/20/19 25 Active furosemide (Lasix) 40 MG tablet Take 1 (one) tablet by mouth once daily 025 Disconti nued(Cli nical Decision ) lactulose (Chronulac;Enulos e) 10 GM/15ML solution Take 15 mL by mouth 3 times daily 11/03/19 25 025 Disconti nued(Lis t Clean-Up ) metoprolol succinate XL 24hr (Toprol XL) 25 MG tablet Take 1 (one) tablet by mouth once daily 10/26/19 25 025 Disconti nued(Cli nical Decision ) metoprolol tartrate IR (Lopressor) 25 MG tablet Take 1 (one) tablet by mouth 2 times daily 025 Disconti nued(Lis t Clean-Up ) sodium bicarbonate 650 MG tablet Take 2 (two) tablets by mouth 3 times daily 11/03/19 25 025 Disconti nued(Tx Complete ) torsemide (Demadex) 20 MG tablet Take 1 (one) tablet by mouth every morning 10/26/19 025 Disconti nued(Cli nical Decision ) Active Problems Problem Noted Date Diagnosed Date Hypotension 11/18/2024 Assessment & Plan (11/19/2024 3:20 PM CDT): s/p (11/17/24) LHC & RHC w/ PCI to proximal mid RCA, mid & distal L main, and LAD w/ interventional cardiology PLAN: --cardiology followed during admission, pt to follow up outpatient --d/c referrals placed for OP cardiac rehab & remote patient monitoring (CHF) --adjusting GDMT daily w/ fluctuating blood pressure as tolerated --current GDMT: metop succ 25 mg, spironol 12.5 mg, Jardiance 10mg, no ACEi/ARB/Entresto d/t hypotension --discharge w/ lasix 20mg PO daily PRN, see parameters for pt to take a dose below per cards recs (AVS dc instructions) --cont fluid restriction 1,600mLs --cardiac diet --MRI cardiac study reviewed, CTS signed off w/ recs for no surgical intervention. --cont ASA/Brilinta/high-intensity statin (rosuva) at dc --pain control w/ PRN tylenol, 2.5mg oxy PRN, 2mg IVP morphine PRN Assessment & Plan (11/18/2024 3:47 PM CDT): s/p (11/17/24) LHC & RHC w/ PCI to proximal mid RCA, mid & distal L main, and LAD w/ interventional cardiology PLAN: --cardiology following --adjusting GDMT daily w/ fluctuating blood pressure as tolerated --current GDMT: metop succ 25 mg, spironol 12.5 mg, losartan 25mg daily (held in s/o hypotension, BP dropped after Entresto so changed to losartan) --cont holding lasix 20mg PO daily --cont fluid restriction, reduce to 1,600mL --cardiac diet --MRI cardiac study resulted. > CTS signed off w/ recs for no surgical intervention. --will d/c with ASA/Brilinta/high-intensity statin (rosuva) --pain control w/ PRN tylenol, 2.5mg oxy PRN, 2mg IVP morphine PRN --replace 40mEq po KCl (11/18), goal K > 4 --give 500mL NS bolus (11/18) for hypotension & hyponatremia --f/u OP cardiology Hypomagnesemia 11/18/2024 Assessment & Plan (11/19/2024 3:20 PM CDT): Mild improvement w fluid restriction. Usom>480 Yaneth>95. TSH WNL. Working ddx: heart failure/ low effective arterial blood volume vs CKD vs adrenal insufficiency vs SIADH. AM Cortisol WNL. Hypotonic/hypovolemic. PLAN: --fluid restrict to 1600 mL --electrolytes replaced prior to d/c: > 30mmoL NaPhos IV (partial but near complete bag), Kphos Neutral 2 tabl once prior to dc > 20mEq po KCl once > 2g IV calcium --cont mag ox 400mg po daily at dc Assessment & Plan (11/18/2024 3:47 PM CDT): --give 4g IV Mag (11/18, Mag level 1.5) --start mag ox 400mg po daily CAD, multiple vessel 11/17/2024 Assessment & Plan (11/19/2024 3:20 PM CDT): s/p (11/17/24) LHC & RHC w/ PCI to proximal mid RCA, mid & distal L main, and LAD w/ interventional cardiology PLAN: --cardiology followed during admission, pt to follow up outpatient --d/c referrals placed for OP cardiac rehab & remote patient monitoring (CHF) --adjusting GDMT daily w/ fluctuating blood pressure as tolerated --current GDMT: metop succ 25 mg, spironol 12.5 mg, Jardiance 10mg, no ACEi/ARB/Entresto d/t hypotension --discharge w/ lasix 20mg PO daily PRN, see parameters for pt to take a dose below per cards recs (AVS dc instructions) --cont fluid restriction 1,600mLs --cardiac diet --MRI cardiac study reviewed, CTS signed off w/ recs for no surgical intervention. --cont ASA/Brilinta/high-intensity statin (rosuva) at dc --pain control w/ PRN tylenol, 2.5mg oxy PRN, 2mg IVP morphine PRN Assessment & Plan (11/18/2024 3:47 PM CDT): s/p (11/17/24) LHC & RHC w/ PCI to proximal mid RCA, mid & distal L main, and LAD w/ interventional cardiology PLAN: --cardiology following --adjusting GDMT daily w/ fluctuating blood pressure as tolerated --current GDMT: metop succ 25 mg, spironol 12.5 mg, losartan 25mg daily (held in s/o hypotension, BP dropped after Entresto so changed to losartan) --cont holding lasix 20mg PO daily --cont fluid restriction, reduce to 1,600mL --cardiac diet --MRI cardiac study resulted. > CTS signed off w/ recs for no surgical intervention. --will d/c with ASA/Brilinta/high-intensity statin (rosuva) --pain control w/ PRN tylenol, 2.5mg oxy PRN, 2mg IVP morphine PRN --replace 40mEq po KCl (11/18), goal K > 4 --give 500mL NS bolus (11/18) for hypotension & hyponatremia --f/u OP cardiology Assessment & Plan (11/17/2024 1:30 PM CDT): Managed per cardiology. PLAN: --cont lipitor 80mg, metoprolol succinate 25 mg, spironolactone 12.5 mg --cont holding lasix 40mg PO daily --hold entresto 24-26 BID and jardiance 10mg qday - awaiting cards final dc recs --cont fluid restriction 1800mL --cardiac diet --MRI cardiac study resulted. > CTS with no surgical intervention. > s/p (11/17/24) LHC & RHC w/ PCI to proximal mid RCA, mid & distal L main, and LAD w/ interventional cardiology >> will d/c with ASA/Brilinta/high-intensity statin --postop pain control w/ PRN tylenol, 2.5mg oxy PRN, 2mg IVP morphine PRN Inguinal hernia of right claudia e without obstruction or gangrene 11/15/2024 Overview (11/15/2024): Patient has a past medical history of inguinal hernia. Today (11/15/2024) upon physical examination an obliquely protruding mobile sac was palpated that moved with coughing. The physical exam finding coupled to the history of previous inguinal hernia raised a suspicion for its recurrence. Insomnia 11/14/2024 Overview (11/14/2024): Patient reported lack of sleep over the last two days Assessment & Plan (11/19/2024 12:43 PM CDT): Melatonin & ambien 5mg are prescribed for sleep Nocturnal desaturation study completed on 11/14/2024. F/u OP w/ PCP, resulted with intermittent desaturations to high 80%s but patient reports he did not sleep well. > discussion w/ pt sounds more psychiatry-related / thinking overnight rather than structural, already planning for OP Psych referral as above, discussed counseling/talk therapy with patient and he is agreeable Assessment & Plan (11/18/2024 3:47 PM CDT): Melatonin & ambien 5mg are prescribed for sleep Nocturnal desaturation study completed on 11/14/2024. F/u OP w/ PCP, resulted with intermittent desaturations to high 80%s but patient reports he did not sleep well. > discussion w/ pt sounds more psychiatry-related / thinking overnight rather than structural, already planning for OP Psych referral as above, discussed counseling/talk therapy with patient and he is agreeable Assessment & Plan (11/17/2024 1:30 PM CDT): Melatonin is prescribed for sleep Ambien 5mg added Nocturnal desaturation study completed on 11/14/2024. F/u OP w/ PCP, resulted with intermittent desaturations to high 80%s but patient reports he did not sleep well. > discussion w/ pt sounds more psychiatry-related / thinking overnight rather than structural, already planning for OP Psych referral as above, discussed counseling/talk therapy with patient and he is agreeable Assessment & Plan (11/16/2024 3:51 PM CDT): Melatonin is prescribed for sleep Ambien 5mg added Nocturnal desaturation study was ordered on 11/14/2024. Result pending. Assessment & Plan (11/15/2024 2:57 PM CDT): Melatonin is prescribed for sleep Ambien 5mg added Nocturnal desaturation study was ordered on 11/14/2024. Result pending. Assessment & Plan (11/14/2024 4:23 PM CDT): Melatonin is prescribed for sleep Hyponatremia 11/12/2024 Assessment & Plan (11/19/2024 3:20 PM CDT): Mild improvement w fluid restriction. Usom>480 Yaneth>95. TSH WNL. Working ddx: heart failure/ low effective arterial blood volume vs CKD vs adrenal insufficiency vs SIADH. AM Cortisol WNL. Hypotonic/hypovolemic. PLAN: --fluid restrict to 1600 mL --electrolytes replaced prior to d/c: > 30mmoL NaPhos IV (partial but near complete bag), Kphos Neutral 2 tabl once prior to dc > 20mEq po KCl once > 2g IV calcium --cont mag ox 400mg po daily at dc Assessment & Plan (11/18/2024 3:47 PM CDT): Mild improvement w fluid restriction. Usom>480 Yaneth>95. TSH WNL. Working ddx: heart failure/ low effective arterial blood volume vs CKD vs adrenal insufficiency vs SIADH Hypotonic/hypovolemic. PLAN: --cont holding lasix 20mg po daily --decrease fluid restrict to 1600 mL --obtain AM Cortisol w/ AM labs (11/19) --obtain repeat urine lytes & osmo (11/18) --start 2g salt tabl x2 days (not nursing home in s/o HFrEF) --NS bolus as above (11/18) Assessment & Plan (11/17/2024 1:03 PM CDT): Chronic hyponatremia. Remains euvolemic, previously hypovolemic. Mild improvement w fluid restriction. Usom>480 Yaneth>95. TSH WNL. Working ddx: heart failure/ low effective arterial blood volume vs CKD vs adrenal insufficiency vs SIADH Hypotonic, euvolemic/hypovolemic. PLAN: --cont holding lasix --cont fluid restrict 1800 mL --consider ACTH/cortisol workup if no further improvement in Na+ with fluid restriction Assessment & Plan (11/16/2024 3:51 PM CDT): Chronic hyponatremia. Remains euvolemic, previously hypovolemic. Mild improvement w fluid restriction. Usom>480 Yaneth>95. TSH WNL. Working ddx: heart failure/ low effective arterial blood volume vs CKD vs adrenal insufficiency vs SIADH Hypotonic, euvolemic/hypovolemic. PLAN: --cont holding lasix --cont fluid restrict 1800 mL --consider ACTH/cortisol workup if no further improvement in Na+ with fluid restriction Assessment & Plan (11/15/2024 2:27 PM CDT): Chronic hyponatremia. Remains euvolemic, previously hypovolemic. Mild improvement w fluid restriction. Usom>480 Yaneth>95. TSH WNL. Working ddx: heart failure/ low effective arterial blood volume vs CKD vs adrenal insufficiency vs SIADH Hypotonic, euvolemic/hypovolemic. PLAN: --cont holding lasix --cont fluid restrict 1800 mL --consider ACTH/cortisol workup if no further improvement in Na+ with fluid restriction Assessment & Plan (11/14/2024 4:23 PM CDT): Chronic hyponatremia. Remains euvolemic, previously hypovolemic. Mild improvement w fluid restriction. Usom>480 Yaneth>95. TSH WNL. Working ddx: heart failure/ low effective arterial blood volume vs CKD vs adrenal insufficiency vs SIADH Hypotonic, euvolemic/hypovolemic. PLAN: --cont holding lasix --cont fluid restrict 1800 mL --consider ACTH/cortisol workup if no further improvement in Na+ with fluid restriction Assessment & Plan (11/13/2024 7:45 PM CDT): Chronic hyponatremia. Remains euvolemic, previously hypovolemic. Mild improvement w fluid restriction. Usom>480 Yaneth>95. TSH WNL. Working ddx: heart failure/ low effective arterial blood volume vs CKD vs adrenal insufficiency vs SIADH Hypotonic, euvolemic/hypovolemic. PLAN: --cont holding lasix --cont fluid restrict 1800 mL --consider ACTH/cortisol workup if no further improvement in Na+ with fluid restriction Assessment & Plan (11/12/2024 4:38 PM CDT): Chronic hyponatremia. Remains euvolemic, previously hypovolemic. Mild improvement w fluid restriction. Usom>480 Yaneth>95. TSH WNL. Working ddx: heart failure/ low effective arterial blood volume vs CKD vs adrenal insufficiency vs SIADH Hypotonic, euvolemic/hypovolemic. PLAN: --cont holding lasix --cont fluid restrict 1800 mL --consider ACTH/cortisol workup if no further improvement in Na+ with fluid restriction Depression 11/10/2024 Assessment & Plan (11/19/2024 12:43 PM CDT): Voiced suicidal ideation on 11/09 but no plan, no homicidal ideation. No history of depression - current episode likely multifactorial: chronic life altering disease, loss of , loss of independence. Plan: --OP psychiatry referral (pt agreeable, ordered) Assessment & Plan (11/18/2024 3:47 PM CDT): Voiced suicidal ideation on 11/09 but no plan, no homicidal ideation. No history of depression - current episode likely multifactorial: chronic life altering disease, loss of , loss of independence. Plan: --OP psychiatry referral (pt agreeable, ordered) Assessment & Plan (11/17/2024 1:30 PM CDT): Voiced suicidal ideation on 11/09 but no plan, no homicidal ideation. No history of depression - current episode likely multifactorial: chronic life altering disease, loss of , loss of independence. Plan: --OP psychiatry referral (pt agreeable, ordered) Assessment & Plan (11/16/2024 3:51 PM CDT): Voiced suicidal ideation on 11/09 but no plan, no homicidal ideation. No history of depression - current episode likely multifactorial: chronic life altering disease, loss of , loss of independence. Plan: --OP psychiatry referral (pt agreeable) Assessment & Plan (11/15/2024 2:27 PM CDT): Voiced suicidal ideation on 11/09 but no plan, no homicidal ideation. No history of depression - current episode likely multifactorial: chronic life altering disease, loss of , loss of independence. Plan: --OP psychiatry referral (pt agreeable) Assessment & Plan (11/14/2024 4:23 PM CDT): Voiced suicidal ideation on 11/09 but no plan, no homicidal ideation. No history of depression - current episode likely multifactorial: chronic life altering disease, loss of , loss of independence. Plan: --OP psychiatry referral (pt agreeable) Assessment & Plan (11/13/2024 7:45 PM CDT): Voiced suicidal ideation on 11/09 but no plan, no homicidal ideation. No history of depression - current episode likely multifactorial: chronic life altering disease, loss of , loss of independence. Plan: --OP psychiatry referral (pt agreeable) Assessment & Plan (11/12/2024 4:38 PM CDT): Voiced suicidal ideation on 11/09 but no plan, no homicidal ideation. No history of depression - current episode likely multifactorial: chronic life altering disease, loss of , loss of independence. Plan: --OP psychiatry referral (pt agreeable) Assessment & Plan (11/11/2024 10:25 AM CDT): No history of depression - current episode likely multifactorial: chronic life altering disease, loss of , loss of independence Voiced suicidal ideation on 11/09 but no plan, no homicidal ideation Plan: Patient is agreeable to an outpatient psychiatry referral Assessment & Plan (11/10/2024 3:08 PM CDT): No history of depression - current episode likely multifactorial: chronic life altering disease, loss of , loss of independence Voiced suicidal ideation on 11/09 but no plan, no homicidal ideation Still with relatively flat affect on 11/10 but not suicidal, much more interactive Plan: Patient is agreeable to an outpatient psychiatry referral Hyponatremia 11/09/2024 Assessment & Plan (11/11/2024 10:25 AM CDT): Ddx: heart failure/ low effective arterial blood volume vs CKD vs adrenal insufficiency vs SIADH Hypotonic, euvolemic/hypovolemic - hold lasix - fluid restrict 1800 mL Assessment & Plan (11/10/2024 9:29 AM CDT): Ddx: heart failure/ low effective arterial blood volume vs CKD vs adrenal insufficiency vs SIADH Hypotonic, volume overload makes most likely etiology HF - fluid restrict 1800 mL Assessment & Plan (11/09/2024 1:10 PM CDT): Ddx: heart failure/ low effective arterial blood volume exacerbated by spironolactone vs CKD vs adrenal insufficiency vs SIADH Hypotonic, volume overload makes most likely etiology HF - fluid restrict 1800 mL Thrombocytopenia 11/05/2024 Assessment & Plan (11/19/2024 12:43 PM CDT): Iron panel consistent with chronic disease PLAN: --hgb stable, continue to monitor --monitored platelet counts - remained stable Assessment & Plan (11/18/2024 3:47 PM CDT): Iron panel consistent with chronic disease PLAN: --hgb stable, continue to monitor --monitored platelet counts - remained stable Assessment & Plan (11/17/2024 1:03 PM CDT): Iron panel consistent with chronic disease PLAN: --hgb stable, continue to monitor --monitored platelet counts - remained stable Assessment & Plan (11/16/2024 3:51 PM CDT): Iron panel consistent with chronic disease PLAN: --hgb stable, continue to monitor --monitor platelet counts closely - remains stable Assessment & Plan (11/15/2024 2:27 PM CDT): Iron panel consistent with chronic disease PLAN: --hgb stable, continue to monitor --monitor platelet counts closely - remains stable Assessment & Plan (11/14/2024 4:23 PM CDT): Iron panel consistent with chronic disease PLAN: --hgb stable, continue to monitor --monitor platelet counts closely - remains stable Assessment & Plan (11/13/2024 7:45 PM CDT): Iron panel consistent with chronic disease PLAN: --hgb stable, continue to monitor --monitor platelet counts closely - remains stable Assessment & Plan (11/12/2024 4:38 PM CDT): Iron panel consistent with chronic disease PLAN: --hgb stable, continue to monitor --monitor platelet counts closely - remains stable Assessment & Plan (11/11/2024 6:53 AM CDT): Iron panel consistent with chronic disease - HgB stable, continue to monitor - monitor platelet counts closely. Stable today. Assessment & Plan (11/10/2024 9:29 AM CDT): Iron panel consistent with chronic disease - HgB stable, continue to monitor - monitor platelet counts closely. Stable today. Assessment & Plan (11/09/2024 7:42 AM CDT): Iron panel consistent with chronic disease - HgB stable, continue to monitor - monitor platelet counts closely. Stable today. Assessment & Plan (11/08/2024 8:01 AM CDT): Iron panel consistent with chronic disease - HgB stable, continue to monitor - monitor platelet counts closely. Stable today. Assessment & Plan (11/07/2024 1:11 PM CDT): Iron panel consistent with chronic disease - HgB stable, continue to monitor - monitor platelet counts closely. Stable today. Assessment & Plan (11/06/2024 3:15 PM CDT): Iron panel consistent with chronic disease - HgB stable, continue to monitor - monitor platelet counts closely Assessment & Plan (11/05/2024 1:23 PM CDT): Iron panel consistent with chronic disease - HgB stable, continue to monitor - monitor platelet counts closely Transaminitis 11/04/2024 Assessment & Plan (11/19/2024 3:20 PM CDT): Ddx: shock liver vs acetaminophen toxicity vs autoimmune vs toxicity from supplements vs autoimmune Transaminases markedly elevated on admission but downtrending now Unclear baseline - no close PCP followup Ultrasound with no clear etiology for liver injury. No ascites. Trace fluid morrisons pouch. - MPO/PR3 autoantibodies negative - Liver-kidney microsomal antibody IgG negative - MEREDITH not detected - [id number] elevated at 254, but likely a result of recent transfusions - ceruloplasmin normal - F-Actin antibody IgG normal - mitochondrial M2 antibody normal - hepatitis panel normal - Improving with downtrending LFTs 11/16/2024 PLAN: --dc'd all OTC supplements IP Assessment & Plan (11/18/2024 3:47 PM CDT): Ddx: shock liver vs acetaminophen toxicity vs autoimmune vs toxicity from supplements vs autoimmune Transaminases markedly elevated on admission but downtrending now Unclear baseline - no close PCP followup Ultrasound with no clear etiology for liver injury. No ascites. Trace fluid morrisons pouch. - MPO/PR3 autoantibodies negative - Liver-kidney microsomal antibody IgG negative - MEREDITH not detected - [id number] elevated at 254, but likely a result of recent transfusions - ceruloplasmin normal - F-Actin antibody IgG normal - mitochondrial M2 antibody normal - hepatitis panel normal - Improving with downtrending LFTs 11/16/2024 PLAN: --dc'd all OTC supplements IP --daily RFP Assessment & Plan (11/17/2024 1:03 PM CDT): Ddx: shock liver vs acetaminophen toxicity vs autoimmune vs toxicity from supplements vs autoimmune Transaminases markedly elevated on admission but downtrending now Unclear baseline - no close PCP followup Ultrasound with no clear etiology for liver injury. No ascites. Trace fluid morrisons pouch. - MPO/PR3 autoantibodies negative - Liver-kidney microsomal antibody IgG negative - MEREDITH not detected - [id number] elevated at 254, but likely a result of recent transfusions - ceruloplasmin normal - F-Actin antibody IgG normal - mitochondrial M2 antibody normal - hepatitis panel normal - Improving with downtrending LFTs 11/16/2024 PLAN: --dc'd all OTC supplements IP --daily RFP Assessment & Plan (11/16/2024 3:51 PM CDT): Ddx: shock liver vs acetaminophen toxicity vs autoimmune vs toxicity from supplements vs autoimmune Transaminases markedly elevated on admission but downtrending now Unclear baseline - no close PCP followup Ultrasound with no clear etiology for liver injury. No ascites. Trace fluid morrisons pouch. - MPO/PR3 autoantibodies negative - Liver-kidney microsomal antibody IgG negative - MEREDITH not detected - [id number] elevated at 254, but likely a result of recent transfusions - ceruloplasmin normal - F-Actin antibody IgG normal - mitochondrial M2 antibody normal - hepatitis panel normal - Improving with downtrending LFTs 11/16/2024 PLAN: --dc all OTC supplements IP --dc LFTs, INR, CBC --daily RFP Assessment & Plan (11/15/2024 2:27 PM CDT): Ddx: shock liver vs acetaminophen toxicity vs autoimmune vs toxicity from supplements vs autoimmune Transaminases markedly elevated on admission but downtrending now Unclear baseline - no close PCP followup Ultrasound with no clear etiology for liver injury. No ascites. Trace fluid morrisons pouch. - MPO/PR3 autoantibodies negative - Liver-kidney microsomal antibody IgG negative - MEREDITH not detected - [id number] elevated at 254, but likely a result of recent transfusions - ceruloplasmin normal - F-Actin antibody IgG normal - mitochondrial M2 antibody normal - hepatitis panel normal PLAN: --dc all OTC supplements IP --daily CBC, CMP, INR Assessment & Plan (11/14/2024 4:23 PM CDT): Ddx: shock liver vs acetaminophen toxicity vs autoimmune vs toxicity from supplements vs autoimmune Transaminases markedly elevated on admission but downtrending now Unclear baseline - no close PCP followup Ultrasound with no clear etiology for liver injury. No ascites. Trace fluid morrisons pouch. - MPO/PR3 autoantibodies negative - Liver-kidney microsomal antibody IgG negative - MEREDITH not detected - [id number] elevated at 254, but likely a result of recent transfusions - ceruloplasmin normal - F-Actin antibody IgG normal - mitochondrial M2 antibody normal - hepatitis panel normal PLAN: --dc all OTC supplements IP --daily CBC, CMP, INR Assessment & Plan (11/13/2024 7:45 PM CDT): Ddx: shock liver vs acetaminophen toxicity vs autoimmune vs toxicity from supplements vs autoimmune Transaminases markedly elevated on admission but downtrending now Unclear baseline - no close PCP followup Ultrasound with no clear etiology for liver injury. No ascites. Trace fluid morrisons pouch. - MPO/PR3 autoantibodies negative - Liver-kidney microsomal antibody IgG negative - MEREDITH not detected - [id number] elevated at 254, but likely a result of recent transfusions - ceruloplasmin normal - F-Actin antibody IgG normal - mitochondrial M2 antibody normal - hepatitis panel normal PLAN: --dc all OTC supplements IP --daily CBC, CMP, INR Assessment & Plan (11/12/2024 4:38 PM CDT): Ddx: shock liver vs acetaminophen toxicity vs autoimmune vs toxicity from supplements vs autoimmune Transaminases markedly elevated on admission but downtrending now Unclear baseline - no close PCP followup Ultrasound with no clear etiology for liver injury. No ascites. Trace fluid morrisons pouch. - MPO/PR3 autoantibodies negative - Liver-kidney microsomal antibody IgG negative - MEREDITH not detected - [id number]-7-vxpczahffgf elevated at 254, but likely a result of recent transfusions - ceruloplasmin normal - F-Actin antibody IgG normal - mitochondrial M2 antibody normal - hepatitis panel normal PLAN: --dc all OTC supplements IP --daily CBC, CMP, INR Assessment & Plan (11/11/2024 10:25 AM CDT): Ddx: shock liver vs acetaminophen toxicity vs autoimmune vs toxicity from supplements vs autoimmune Transaminases markedly elevated on admission but downtrending now Unclear baseline - no close PCP followup Ultrasound with no clear etiology for liver injury. No ascites. Trace fluid morrisons pouch. - MPO/PR3 autoantibodies negative - Liver-kidney microsomal antibody IgG negative - MEREDITH not detected - [id number]-7-idnosokshsw elevated at 254, but likely a result of recent transfusions - ceruloplasmin normal - F-Actin antibody IgG normal - mitochondrial M2 antibody normal - hepatitis panel normal PLAN: - Dc all OTC supplements - Daily CBC, CMP, INR Assessment & Plan (11/10/2024 9:29 AM CDT): Ddx: shock liver vs acetaminophen toxicity vs autoimmune vs toxicity from supplements vs autoimmune Transaminases markedly elevated on admission but downtrending now Unclear baseline - no close PCP followup Ultrasound with no clear etiology for liver injury. No ascites. Trace fluid morrisons pouch. PLAN: AMA, MEREDITH, Antismooth muscle antibodies, ANCA panel, anti-LKM1 antibodies, IgG, serum [id number] - ceruloplasmin normal - F-Actin antibody IgG normal - mitochondrial M2 antibody normal - hepatitis panel normal - Dc all OTC supplements - Daily CBC, CMP, INR Assessment & Plan (11/09/2024 7:42 AM CDT): Ddx: shock liver vs acetaminophen toxicity vs autoimmune vs toxicity from supplements vs autoimmune -patient denies alcohol use in the last 40 years - supplements listed above. Of these, ashwagandha and saw palmetto have been associated with hepatocellular injury, as well as supplements with proprietary blends such as his prostate formula. Transaminases markedly elevated but downtrending Unclear baseline - no close PCP followup Ultrasound with no clear etiology for liver injury. No ascites. Trace fluid morrisons pouch. PLAN: AMA, MEREDITH, Antismooth muscle antibodies, ANCA panel, anti-LKM1 antibodies, IgG, serum [id number]-7-[id number] - ceruloplasmin normal - F-Actin antibody IgG normal - mitochondrial M2 antibody normal - hepatitis panel normal - Dc all OTC supplements - Daily CBC, CMP, INR Assessment & Plan (11/08/2024 8:01 AM CDT): Ddx: shock liver vs acetaminophen toxicity vs autoimmune vs toxicity from supplements vs autoimmune -patient denies alcohol use in the last 40 years - supplements listed above. Of these, ashwagandha and saw palmetto have been associated with hepatocellular injury, as well as supplements with proprietary blends such as his prostate formula. Transaminases markedly elevated but downtrending Unclear baseline - no close PCP followup Ultrasound with no clear etiology for liver injury. No ascites. Trace fluid morrisons pouch. PLAN: AMA, MEREDITH, Antismooth muscle antibodies, ANCA panel, anti-LKM1 antibodies, IgG, serum [id number] - ceruloplasmin normal - F-Actin antibody IgG normal - mitochondrial M2 antibody normal - hepatitis panel normal - Dc all OTC supplements - Daily CBC, CMP, INR Assessment & Plan (11/07/2024 1:11 PM CDT): Ddx: shock liver vs acetaminophen toxicity vs autoimmune vs toxicity from supplements vs autoimmune -patient denies alcohol use in the last 40 years - supplements listed above. Of these, ashwagandha and saw palmetto have been associated with hepatocellular injury, as well as supplements with proprietary blends such as his prostate formula. Transaminases markedly elevated but downtrending Unclear baseline - no close PCP followup Ultrasound with no clear etiology for liver injury. No ascites. Trace fluid morrisons pouch. PLAN: AMA, MEREDITH, Antismooth muscle antibodies, ANCA panel, anti-LKM1 antibodies, IgG, serum [id number] - ceruloplasmin normal - F-Actin antibody IgG normal - mitochondrial M2 antibody normal - hepatitis panel normal - Dc all OTC supplements - Daily CBC, CMP, INR Assessment & Plan (11/06/2024 3:15 PM CDT): Ddx: shock liver vs acetaminophen toxicity vs autoimmune vs toxicity from supplements -patient denies alcohol use in the last 40 years - supplements listed above. Of these, ashwagandha and saw palmetto have been associated with hepatocellular injury, as well as supplements with proprietary blends such as his prostate formula. Transaminases markedly elevated but downtrending Unclear baseline - no close PCP followup Ultrasound with no clear etiology for liver injury. No ascites. Trace fluid morrisons pouch. PLAN: AMA, MEREDITH, Antismooth muscle antibodies, ANCA panel, anti-LKM1 antibodies, IgG, ceruloplasmin, serum [id number] - F-Actin antibody IgG normal - mitochondrial M2 antibody normal - hepatitis panel normal - Dc all OTC supplements - Dc lactulose - Daily CBC, CMP, INR Assessment & Plan (11/05/2024 1:23 PM CDT): Ddx: shock liver vs acetaminophen toxicity vs autoimmune vs toxicity from supplements -patient denies alcohol use in the last 40 years - supplements listed above. Of these, ashwagandha and saw palmetto have been associated with hepatocellular injury, as well as supplements with proprietary blends such as his prostate formula. Transaminases markedly elevated but downtrending Unclear baseline - no close PCP followup Ultrasound with no clear etiology for liver injury. No ascites. Trace fluid morrisons pouch. PLAN: AMA, MEREDITH, Antismooth muscle antibodies, ANCA panel, anti-LKM1 antibodies, IgG, ceruloplasmin, serum [id number]-0-bjrotysthei - F-Actin antibody IgG normal - mitochondrial M2 antibody normal - hepatitis panel normal - Dc all OTC supplements - Dc lactulose - Daily CBC, CMP, INR Assessment & Plan (11/04/2024 6:59 PM CDT): Ddx: shock liver vs acetaminophen toxicity vs alcoholic hepatitis vs autoimmune -patient denies alcohol use in the last 40 years Transaminases markedly elevated but downtrending Unclear baseline - no close PCP followup Ultrasound with no clear etiology for liver injury. No ascites. Trace fluid morrisons pouch. PLAN: AMA, MEREDITH, Antismooth muscle antibodies, ANCA panel, anti-LKM1 antibodies, IgG, ceruloplasmin, serum [id number] - F-Actin antibody IgG normal - mitochondrial M2 antibody normal - hepatitis panel normal - Dc all OTC supplements - Dc lactulose - Daily CBC, CMP, INR Other specified anemias 11/02/2024 Assessment & Plan (11/19/2024 12:43 PM CDT): Iron panel consistent with chronic disease PLAN: --hgb stable, continue to monitor --monitored platelet counts - remained stable Assessment & Plan (11/18/2024 3:47 PM CDT): Iron panel consistent with chronic disease PLAN: --hgb stable, continue to monitor --monitored platelet counts - remained stable Assessment & Plan (11/17/2024 1:03 PM CDT): Iron panel consistent with chronic disease PLAN: --hgb stable, continue to monitor --monitored platelet counts - remained stable Assessment & Plan (11/16/2024 3:51 PM CDT): Iron panel consistent with chronic disease PLAN: --hgb stable, continue to monitor --monitor platelet counts closely - remains stable Assessment & Plan (11/15/2024 2:27 PM CDT): Iron panel consistent with chronic disease PLAN: --hgb stable, continue to monitor --monitor platelet counts closely - remains stable Assessment & Plan (11/14/2024 4:23 PM CDT): Iron panel consistent with chronic disease PLAN: --hgb stable, continue to monitor --monitor platelet counts closely - remains stable Assessment & Plan (11/13/2024 7:45 PM CDT): Iron panel consistent with chronic disease PLAN: --hgb stable, continue to monitor --monitor platelet counts closely - remains stable Assessment & Plan (11/12/2024 4:38 PM CDT): Iron panel consistent with chronic disease PLAN: --hgb stable, continue to monitor --monitor platelet counts closely - remains stable Assessment & Plan (11/11/2024 6:53 AM CDT): Iron panel consistent with chronic disease - HgB stable, continue to monitor - monitor platelet counts closely. Stable today. Assessment & Plan (11/10/2024 9:29 AM CDT): Iron panel consistent with chronic disease - HgB stable, continue to monitor - monitor platelet counts closely. Stable today. Assessment & Plan (11/09/2024 7:42 AM CDT): Iron panel consistent with chronic disease - HgB stable, continue to monitor - monitor platelet counts closely. Stable today. Assessment & Plan (11/08/2024 8:01 AM CDT): Iron panel consistent with chronic disease - HgB stable, continue to monitor - monitor platelet counts closely. Stable today. Assessment & Plan (11/07/2024 1:11 PM CDT): Iron panel consistent with chronic disease - HgB stable, continue to monitor - monitor platelet counts closely. Stable today. Assessment & Plan (11/06/2024 3:15 PM CDT): Iron panel consistent with chronic disease - HgB stable, continue to monitor - monitor platelet counts closely Assessment & Plan (11/05/2024 1:23 PM CDT): Iron panel consistent with chronic disease - HgB stable, continue to monitor - monitor platelet counts closely Assessment & Plan (11/04/2024 6:33 PM CDT): Iron panel consistent with chronic disease - HgB stable, continue to monitor Urinary retention 11/02/2024 Assessment & Plan (11/19/2024 12:43 PM CDT): Patient voiding without catheter. --bedside urinal --can restart external catheter PRN --cont tamsulosin 0.4mg daily Assessment & Plan (11/18/2024 3:47 PM CDT): Patient voiding without catheter. --bedside urinal --can restart external catheter PRN --cont tamsulosin 0.4mg daily Assessment & Plan (11/17/2024 1:03 PM CDT): Patient voiding without catheter. --bedside urinal --can restart external catheter PRN --cont tamsulosin 0.4mg daily Assessment & Plan (11/16/2024 3:51 PM CDT): Patient voiding without catheter. --bedside urinal --restart external catheter PRN --cont tamsulosin 0.4mg daily Assessment & Plan (11/15/2024 2:27 PM CDT): Patient voiding without catheter. --bedside urinal --restart external catheter PRN --cont tamsulosin 0.4mg daily Assessment & Plan (11/14/2024 4:23 PM CDT): Patient voiding without catheter. --bedside urinal --restart external catheter PRN --cont tamsulosin 0.4mg daily Assessment & Plan (11/13/2024 7:45 PM CDT): Patient voiding without catheter. --bedside urinal --restart external catheter PRN --cont tamsulosin 0.4mg daily Assessment & Plan (11/12/2024 4:38 PM CDT): Patient voiding without catheter. --bedside urinal --restart external catheter PRN --cont tamsulosin 0.4mg daily Assessment & Plan (11/11/2024 6:53 AM CDT): Patient voiding without catheter - provided bedside urinal - can restart external catheter if needed - tamsulosin 0.4mg daily Assessment & Plan (11/10/2024 9:29 AM CDT): Patient voiding without catheter - provided bedside urinal - can restart external catheter if needed - tamsulosin 0.4mg daily Assessment & Plan (11/09/2024 7:42 AM CDT): Patient voiding without catheter - provided bedside urinal - can restart external catheter if needed - tamsulosin 0.4mg daily Assessment & Plan (11/08/2024 8:01 AM CDT): Patient voiding without catheter - provided bedside urinal - can restart external catheter if needed - tamsulosin 0.4mg daily Assessment & Plan (11/07/2024 11:28 AM CDT): Patient voiding without catheter - provided bedside urinal - can restart external catheter if needed - tamsulosin 0.4mg daily Assessment & Plan (11/06/2024 3:15 PM CDT): Patient wanting to try voiding without catheter - provided bedside urinal - can restart external catheter if needed - tamsulosin 0.4mg daily Assessment & Plan (11/05/2024 12:07 PM CDT): Patient wanting to try voiding without catheter - provided bedside urinal - can restart external catheter if needed - tamsulosin 0.4mg daily Assessment & Plan (11/04/2024 6:33 PM CDT): Patient wanting to try voiding without catheter - provided bedside urinal - can restart external catheter if needed - tamsulosin 0.4mg daily Heart failure with reduced ejection fraction Assessment & Plan (11/19/2024 3:20 PM CDT): s/p (11/17/24) LHC & RHC w/ PCI to proximal mid RCA, mid & distal L main, and LAD w/ interventional cardiology PLAN: --cardiology followed during admission, pt to follow up outpatient --d/c referrals placed for OP cardiac rehab & remote patient monitoring (CHF) --adjusting GDMT daily w/ fluctuating blood pressure as tolerated --current GDMT: metop succ 25 mg, spironol 12.5 mg, Jardiance 10mg, no ACEi/ARB/Entresto d/t hypotension --discharge w/ lasix 20mg PO daily PRN, see parameters for pt to take a dose below per cards recs (AVS dc instructions) --cont fluid restriction 1,600mLs --cardiac diet --MRI cardiac study reviewed, CTS signed off w/ recs for no surgical intervention. --cont ASA/Brilinta/high-intensity statin (rosuva) at dc --pain control w/ PRN tylenol, 2.5mg oxy PRN, 2mg IVP morphine PRN Assessment & Plan (11/18/2024 3:47 PM CDT): s/p (11/17/24) LHC & RHC w/ PCI to proximal mid RCA, mid & distal L main, and LAD w/ interventional cardiology PLAN: --cardiology following --adjusting GDMT daily w/ fluctuating blood pressure as tolerated --current GDMT: metop succ 25 mg, spironol 12.5 mg, losartan 25mg daily (held in s/o hypotension, BP dropped after Entresto so changed to losartan) --cont holding lasix 20mg PO daily --cont fluid restriction, reduce to 1,600mL --cardiac diet --MRI cardiac study resulted. > CTS signed off w/ recs for no surgical intervention. --will d/c with ASA/Brilinta/high-intensity statin (rosuva) --pain control w/ PRN tylenol, 2.5mg oxy PRN, 2mg IVP morphine PRN --replace 40mEq po KCl (11/18), goal K > 4 --give 500mL NS bolus (11/18) for hypotension & hyponatremia --f/u OP cardiology Assessment & Plan (11/17/2024 1:30 PM CDT): Managed per cardiology. PLAN: --cont lipitor 80mg, metoprolol succinate 25 mg, spironolactone 12.5 mg --cont holding lasix 40mg PO daily --hold entresto 24-26 BID and jardiance 10mg qday - awaiting cards final dc recs --cont fluid restriction 1800mL --cardiac diet --MRI cardiac study resulted. > CTS with no surgical intervention. > s/p (11/17/24) LHC & RHC w/ PCI to proximal mid RCA, mid & distal L main, and LAD w/ interventional cardiology >> will d/c with ASA/Brilinta/high-intensity statin --postop pain control w/ PRN tylenol, 2.5mg oxy PRN, 2mg IVP morphine PRN Assessment & Plan (11/16/2024 3:51 PM CDT): Managed per cardiology. PLAN: --cont lipitor 80mg, metoprolol succinate 25 mg, spironolactone 12.5 mg --cont holding lasix 40mg PO daily --hold entresto 24-26 BID and jardiance 10mg qday - awaiting cards/CTS recs --cont fluid restriction 1800mL, --MRI cardiac study resulted. - CTS with no surgical intervention. - Cardiology plan for cath in AM. NPO at midnight. Assessment & Plan (11/15/2024 2:57 PM CDT): Managed per cardiology. PLAN: --cont lipitor 80mg, metoprolol succinate 25 mg, spironolactone 12.5 mg --cont holding lasix 40mg PO daily --hold entresto 24-26 BID and jardiance 10mg qday - awaiting cards/CTS recs --cont fluid restriction 1800mL, --Pending report for MRI cardiac study. Cardiology consultation once report is available. Assessment & Plan (11/14/2024 4:23 PM CDT): Managed per cardiology. PLAN: --cont lipitor 80mg, metoprolol succinate 25 mg, spironolactone 12.5 mg --cont holding lasix 40mg PO daily --hold entresto 24-26 BID and jardiance 10mg qday - awaiting cards/CTS recs --cont fluid restriction 1800mL, --Pending MRI cardiac study. Assessment & Plan (11/13/2024 7:45 PM CDT): Managed per cardiology. PLAN: --cont lipitor 80mg, metoprolol succinate 25 mg, spironolactone 12.5 mg --cont holding lasix 40mg PO daily --hold entresto 24-26 BID and jardiance 10mg qday - awaiting cards/CTS recs --cont fluid restriction 1800mL, --pending MRI cardiac study Assessment & Plan (11/12/2024 4:38 PM CDT): Managed per cardiology. PLAN: --cont lipitor 80mg, metoprolol succinate 25 mg, spironolactone 12.5 mg --cont holding lasix 40mg PO daily --hold entresto 24-26 BID and jardiance 10mg qday - awaiting cards/CTS recs --cont fluid restriction 1800mL, --pending MRI cardiac study Assessment & Plan (11/11/2024 12:04 PM CDT): Entresto 24-26 BID - holding Jardiance 10 mg Qdaily - not started yet, waiting on CTS recs Metoprolol succinate 25 mg qdaily Spironolactone 12.5 mg Lasix 40 PO daily - held today Fluid restrict 1800 mL Cardiac MRI ordered Started lipitor 80 mg Assessment & Plan (11/10/2024 9:29 AM CDT): Entresto 24-26 BID - holding Jardiance 10 mg Qdaily - not started yet, waiting on CTS recs Metoprolol succinate 25 mg qdaily Spironolactone 12.5 mg Lasix 40 PO daily - held today Telemetry Fluid restrict 1800 mL Cardiac MRI ordered today Assessment & Plan (11/09/2024 1:10 PM CDT): Entresto 24-26 BID - holding starting this afternoon until seen by CTS Jardiance 10 mg Qdaily - not started yet, waiting on CTS recs Metoprolol succinate 25 mg qdaily Spironolactone 12.5 mg Lasix 40 PO daily - held today Telemetry Fluid restrict 1800 mL [facility] cardiac MRI tomorrow Assessment & Plan (11/08/2024 3:02 PM CDT): Entresto 24-26 BID - holding starting this afternoon until seen by CTS Jardiance 10 mg Qdaily - not started yet, waiting on CTS recs Metoprolol succinate 25 mg qdaily started yesterday Spironolactone 12.5 mg today, assess response Lasix 40 PO daily Telemetry Fluid restrict 1800 mL F/u CTS recommendations s/p cardiac cath -CT chest, carotid duplex, PFTs Assessment & Plan (11/07/2024 1:05 PM CDT): Hydralazine 10mg TID dc Isosorbide dinitrate 10mg TID dc Entresto 24-26 BID - gave 1 dose 11/06, has not received yet today Jardiance 10 mg Qdaily - not started yet, waiting on CTS recs Metoprolol succinate 25 mg qdaily started yesterday Spironolactone held - will consider starting tomorrow Lasix resumed Telemetry F/u CTS recommendations s/p cardiac cath Assessment & Plan (11/06/2024 3:34 PM CDT): Hydralazine 10mg TID Isosorbide dinitrate 10mg TID Lasix resumed Telemetry F/u CTS recommendations s/p cardiac cath Assessment & Plan (11/05/2024 1:23 PM CDT): Hydralazine 10mg TID Isosorbide dinitrate 10mg TID Lasix resumed today Telemetry Cards planning for L and R heart cath tomorrow 11/06 NPO midnight Assessment & Plan (11/04/2024 6:59 PM CDT): Hydralazine 10mg TID Isosorbide dinitrate 10mg TID Lasix held today (diuretic holiday) Telemetry Needs ischemic workup once stable Cardiogenic shock 11/02/2024 Assessment & Plan (11/19/2024 3:20 PM CDT): s/p (11/17/24) LHC & RHC w/ PCI to proximal mid RCA, mid & distal L main, and LAD w/ interventional cardiology PLAN: --cardiology followed during admission, pt to follow up outpatient --d/c referrals placed for OP cardiac rehab & remote patient monitoring (CHF) --adjusting GDMT daily w/ fluctuating blood pressure as tolerated --current GDMT: metop succ 25 mg, spironol 12.5 mg, Jardiance 10mg, no ACEi/ARB/Entresto d/t hypotension --discharge w/ lasix 20mg PO daily PRN, see parameters for pt to take a dose below per cards recs (AVS dc instructions) --cont fluid restriction 1,600mLs --cardiac diet --MRI cardiac study reviewed, CTS signed off w/ recs for no surgical intervention. --cont ASA/Brilinta/high-intensity statin (rosuva) at dc --pain control w/ PRN tylenol, 2.5mg oxy PRN, 2mg IVP morphine PRN Assessment & Plan (11/18/2024 3:47 PM CDT): s/p (11/17/24) LHC & RHC w/ PCI to proximal mid RCA, mid & distal L main, and LAD w/ interventional cardiology PLAN: --cardiology following --adjusting GDMT daily w/ fluctuating blood pressure as tolerated --current GDMT: metop succ 25 mg, spironol 12.5 mg, losartan 25mg daily (held in s/o hypotension, BP dropped after Entresto so changed to losartan) --cont holding lasix 20mg PO daily --cont fluid restriction, reduce to 1,600mL --cardiac diet --MRI cardiac study resulted. > CTS signed off w/ recs for no surgical intervention. --will d/c with ASA/Brilinta/high-intensity statin (rosuva) --pain control w/ PRN tylenol, 2.5mg oxy PRN, 2mg IVP morphine PRN --replace 40mEq po KCl (11/18), goal K > 4 --give 500mL NS bolus (11/18) for hypotension & hyponatremia --f/u OP cardiology Assessment & Plan (11/17/2024 1:30 PM CDT): Managed per cardiology. PLAN: --cont lipitor 80mg, metoprolol succinate 25 mg, spironolactone 12.5 mg --cont holding lasix 40mg PO daily --hold entresto 24-26 BID and jardiance 10mg qday - awaiting cards final dc recs --cont fluid restriction 1800mL --cardiac diet --MRI cardiac study resulted. > CTS with no surgical intervention. > s/p (11/17/24) LHC & RHC w/ PCI to proximal mid RCA, mid & distal L main, and LAD w/ interventional cardiology >> will d/c with ASA/Brilinta/high-intensity statin --postop pain control w/ PRN tylenol, 2.5mg oxy PRN, 2mg IVP morphine PRN Assessment & Plan (11/16/2024 3:51 PM CDT): Managed per cardiology. PLAN: --cont lipitor 80mg, metoprolol succinate 25 mg, spironolactone 12.5 mg --cont holding lasix 40mg PO daily --hold entresto 24-26 BID and jardiance 10mg qday - awaiting cards/CTS recs --cont fluid restriction 1800mL, --MRI cardiac study resulted. - CTS with no surgical intervention. - Cardiology plan for cath in AM. NPO at midnight. Assessment & Plan (11/15/2024 2:57 PM CDT): Managed per cardiology. PLAN: --cont lipitor 80mg, metoprolol succinate 25 mg, spironolactone 12.5 mg --cont holding lasix 40mg PO daily --hold entresto 24-26 BID and jardiance 10mg qday - awaiting cards/CTS recs --cont fluid restriction 1800mL, --Pending report for MRI cardiac study. Cardiology consultation once report is available. Assessment & Plan (11/14/2024 4:23 PM CDT): Managed per cardiology. PLAN: --cont lipitor 80mg, metoprolol succinate 25 mg, spironolactone 12.5 mg --cont holding lasix 40mg PO daily --hold entresto 24-26 BID and jardiance 10mg qday - awaiting cards/CTS recs --cont fluid restriction 1800mL, --Pending MRI cardiac study. Assessment & Plan (11/13/2024 7:45 PM CDT): Managed per cardiology. PLAN: --cont lipitor 80mg, metoprolol succinate 25 mg, spironolactone 12.5 mg --cont holding lasix 40mg PO daily --hold entresto 24-26 BID and jardiance 10mg qday - awaiting cards/CTS recs --cont fluid restriction 1800mL, --pending MRI cardiac study Assessment & Plan (11/12/2024 4:38 PM CDT): Managed per cardiology. PLAN: --cont lipitor 80mg, metoprolol succinate 25 mg, spironolactone 12.5 mg --cont holding lasix 40mg PO daily --hold entresto 24-26 BID and jardiance 10mg qday - awaiting cards/CTS recs --cont fluid restriction 1800mL, --pending MRI cardiac study Assessment & Plan (11/11/2024 12:04 PM CDT): Entresto 24-26 BID - holding Jardiance 10 mg Qdaily - not started yet, waiting on CTS recs Metoprolol succinate 25 mg qdaily Spironolactone 12.5 mg Lasix 40 PO daily - held today Fluid restrict 1800 mL Cardiac MRI ordered Started lipitor 80 mg Assessment & Plan (11/10/2024 9:29 AM CDT): Entresto 24-26 BID - holding Jardiance 10 mg Qdaily - not started yet, waiting on CTS recs Metoprolol succinate 25 mg qdaily Spironolactone 12.5 mg Lasix 40 PO daily - held today Telemetry Fluid restrict 1800 mL Cardiac MRI ordered today Assessment & Plan (11/09/2024 1:10 PM CDT): Entresto 24-26 BID - holding starting this afternoon until seen by CTS Jardiance 10 mg Qdaily - not started yet, waiting on CTS recs Metoprolol succinate 25 mg qdaily Spironolactone 12.5 mg Lasix 40 PO daily - held today Telemetry Fluid restrict 1800 mL [facility] cardiac MRI tomorrow Assessment & Plan (11/08/2024 3:02 PM CDT): Entresto 24-26 BID - holding starting this afternoon until seen by CTS Jardiance 10 mg Qdaily - not started yet, waiting on CTS recs Metoprolol succinate 25 mg qdaily started yesterday Spironolactone 12.5 mg today, assess response Lasix 40 PO daily Telemetry Fluid restrict 1800 mL F/u CTS recommendations s/p cardiac cath -CT chest, carotid duplex, PFTs Assessment & Plan (11/07/2024 1:05 PM CDT): Hydralazine 10mg TID dc Isosorbide dinitrate 10mg TID dc Entresto 24-26 BID - gave 1 dose 11/06, has not received yet today Jardiance 10 mg Qdaily - not started yet, waiting on CTS recs Metoprolol succinate 25 mg qdaily started yesterday Spironolactone held - will consider starting tomorrow Lasix resumed Telemetry F/u CTS recommendations s/p cardiac cath Assessment & Plan (11/06/2024 3:34 PM CDT): Hydralazine 10mg TID Isosorbide dinitrate 10mg TID Lasix resumed Telemetry F/u CTS recommendations s/p cardiac cath Assessment & Plan (11/05/2024 1:23 PM CDT): Hydralazine 10mg TID Isosorbide dinitrate 10mg TID Lasix resumed today Telemetry Cards planning for L and R heart cath tomorrow 11/06 NPO midnight Assessment & Plan (11/04/2024 6:59 PM CDT): Hydralazine 10mg TID Isosorbide dinitrate 10mg TID Lasix held today (diuretic holiday) Telemetry Needs ischemic workup once stable Elevated troponin 11/02/2024 Assessment & Plan (11/19/2024 3:20 PM CDT): s/p (11/17/24) [facility] w/ PCI to proximal mid RCA, mid & distal L main, and LAD w/ interventional cardiology PLAN: --cardiology followed during admission, pt to follow up outpatient --d/c referrals placed for OP cardiac rehab & remote patient monitoring (CHF) --adjusting GDMT daily w/ fluctuating blood pressure as tolerated --current GDMT: metop succ 25 mg, spironol 12.5 mg, Jardiance 10mg, no ACEi/ARB/Entresto d/t hypotension --discharge w/ lasix 20mg PO daily PRN, see parameters for pt to take a dose below per cards recs (AVS dc instructions) --cont fluid restriction 1,600mLs --cardiac diet --MRI cardiac study reviewed, CTS signed off w/ recs for no surgical intervention. --cont ASA/Brilinta/high-intensity statin (rosuva) at dc --pain control w/ PRN tylenol, 2.5mg oxy PRN, 2mg IVP morphine PRN Assessment & Plan (11/18/2024 3:47 PM CDT): s/p (11/17/24) [facility] w/ PCI to proximal mid RCA, mid & distal L main, and LAD w/ interventional cardiology PLAN: --cardiology following --adjusting GDMT daily w/ fluctuating blood pressure as tolerated --current GDMT: metop succ 25 mg, spironol 12.5 mg, losartan 25mg daily (held in s/o hypotension, BP dropped after Entresto so changed to losartan) --cont holding lasix 20mg PO daily --cont fluid restriction, reduce to 1,600mL --cardiac diet --MRI cardiac study resulted. > CTS signed off w/ recs for no surgical intervention. --will d/c with ASA/Brilinta/high-intensity statin (rosuva) --pain control w/ PRN tylenol, 2.5mg oxy PRN, 2mg IVP morphine PRN --replace 40mEq po KCl (11/18), goal K > 4 --give 500mL NS bolus (11/18) for hypotension & hyponatremia --f/u OP cardiology Assessment & Plan (11/17/2024 1:30 PM CDT): Managed per cardiology. PLAN: --cont lipitor 80mg, metoprolol succinate 25 mg, spironolactone 12.5 mg --cont holding lasix 40mg PO daily --hold entresto 24-26 BID and jardiance 10mg qday - awaiting cards final dc recs --cont fluid restriction 1800mL --cardiac diet --MRI cardiac study resulted. > CTS with no surgical intervention. > s/p (11/17/24) [facility] w/ PCI to proximal mid RCA, mid & distal L main, and LAD w/ interventional cardiology >> will d/c with ASA/Brilinta/high-intensity statin --postop pain control w/ PRN tylenol, 2.5mg oxy PRN, 2mg IVP morphine PRN Assessment & Plan (11/16/2024 3:51 PM CDT): Managed per cardiology. PLAN: --cont lipitor 80mg, metoprolol succinate 25 mg, spironolactone 12.5 mg --cont holding lasix 40mg PO daily --hold entresto 24-26 BID and jardiance 10mg qday - awaiting cards/CTS recs --cont fluid restriction 1800mL, --MRI cardiac study resulted. - CTS with no surgical intervention. - Cardiology plan for cath in AM. NPO at midnight. Assessment & Plan (11/15/2024 2:57 PM CDT): Managed per cardiology. PLAN: --cont lipitor 80mg, metoprolol succinate 25 mg, spironolactone 12.5 mg --cont holding lasix 40mg PO daily --hold entresto 24-26 BID and jardiance 10mg qday - awaiting cards/CTS recs --cont fluid restriction 1800mL, --Pending report for MRI cardiac study. Cardiology consultation once report is available. Assessment & Plan (11/14/2024 4:23 PM CDT): Managed per cardiology. PLAN: --cont lipitor 80mg, metoprolol succinate 25 mg, spironolactone 12.5 mg --cont holding lasix 40mg PO daily --hold entresto 24-26 BID and jardiance 10mg qday - awaiting cards/CTS recs --cont fluid restriction 1800mL, --Pending MRI cardiac study. Assessment & Plan (11/13/2024 7:45 PM CDT): Managed per cardiology. PLAN: --cont lipitor 80mg, metoprolol succinate 25 mg, spironolactone 12.5 mg --cont holding lasix 40mg PO daily --hold entresto 24-26 BID and jardiance 10mg qday - awaiting cards/CTS recs --cont fluid restriction 1800mL, --pending MRI cardiac study Assessment & Plan (11/12/2024 4:38 PM CDT): Managed per cardiology. PLAN: --cont lipitor 80mg, metoprolol succinate 25 mg, spironolactone 12.5 mg --cont holding lasix 40mg PO daily --hold entresto 24-26 BID and jardiance 10mg qday - awaiting cards/CTS recs --cont fluid restriction 1800mL, --pending MRI cardiac study Assessment & Plan (11/11/2024 12:04 PM CDT): Entresto 24-26 BID - holding Jardiance 10 mg Qdaily - not started yet, waiting on CTS recs Metoprolol succinate 25 mg qdaily Spironolactone 12.5 mg Lasix 40 PO daily - held today Fluid restrict 1800 mL Cardiac MRI ordered Started lipitor 80 mg Assessment & Plan (11/10/2024 9:29 AM CDT): Entresto 24-26 BID - holding Jardiance 10 mg Qdaily - not started yet, waiting on CTS recs Metoprolol succinate 25 mg qdaily Spironolactone 12.5 mg Lasix 40 PO daily - held today Telemetry Fluid restrict 1800 mL Cardiac MRI ordered today Assessment & Plan (11/09/2024 1:10 PM CDT): Entresto 24-26 BID - holding starting this afternoon until seen by CTS Jardiance 10 mg Qdaily - not started yet, waiting on CTS recs Metoprolol succinate 25 mg qdaily Spironolactone 12.5 mg Lasix 40 PO daily - held today Telemetry Fluid restrict 1800 mL [facility] cardiac MRI tomorrow Assessment & Plan (11/08/2024 3:02 PM CDT): Entresto 24-26 BID - holding starting this afternoon until seen by CTS Jardiance 10 mg Qdaily - not started yet, waiting on CTS recs Metoprolol succinate 25 mg qdaily started yesterday Spironolactone 12.5 mg today, assess response Lasix 40 PO daily Telemetry Fluid restrict 1800 mL F/u CTS recommendations s/p cardiac cath -CT chest, carotid duplex, PFTs Assessment & Plan (11/07/2024 1:05 PM CDT): Hydralazine 10mg TID dc Isosorbide dinitrate 10mg TID dc Entresto 24-26 BID - gave 1 dose 11/06, has not received yet today Jardiance 10 mg Qdaily - not started yet, waiting on CTS recs Metoprolol succinate 25 mg qdaily started yesterday Spironolactone held - will consider starting tomorrow Lasix resumed Telemetry F/u CTS recommendations s/p cardiac cath Assessment & Plan (11/06/2024 3:34 PM CDT): Hydralazine 10mg TID Isosorbide dinitrate 10mg TID Lasix resumed Telemetry F/u CTS recommendations s/p cardiac cath Assessment & Plan (11/05/2024 1:23 PM CDT): Hydralazine 10mg TID Isosorbide dinitrate 10mg TID Lasix resumed today Telemetry Cards planning for L and R heart cath tomorrow 11/06 NPO midnight Assessment & Plan (11/04/2024 6:59 PM CDT): Hydralazine 10mg TID Isosorbide dinitrate 10mg TID Lasix held today (diuretic holiday) Telemetry Needs ischemic workup once stable Hepatic trauma, initial encounter 10/31/2024 Assessment & Plan (11/19/2024 3:20 PM CDT): Ddx: shock liver vs acetaminophen toxicity vs autoimmune vs toxicity from supplements vs autoimmune Transaminases markedly elevated on admission but downtrending now Unclear baseline - no close PCP followup Ultrasound with no clear etiology for liver injury. No ascites. Trace fluid morrisons pouch. - MPO/PR3 autoantibodies negative - Liver-kidney microsomal antibody IgG negative - MEREDITH not detected - [id number] elevated at 254, but likely a result of recent transfusions - ceruloplasmin normal - F-Actin antibody IgG normal - mitochondrial M2 antibody normal - hepatitis panel normal - Improving with downtrending LFTs 11/16/2024 PLAN: --dc'd all OTC supplements IP Assessment & Plan (11/18/2024 3:47 PM CDT): Ddx: shock liver vs acetaminophen toxicity vs autoimmune vs toxicity from supplements vs autoimmune Transaminases markedly elevated on admission but downtrending now Unclear baseline - no close PCP followup Ultrasound with no clear etiology for liver injury. No ascites. Trace fluid morrisons pouch. - MPO/PR3 autoantibodies negative - Liver-kidney microsomal antibody IgG negative - MEREDITH not detected - [id number] elevated at 254, but likely a result of recent transfusions - ceruloplasmin normal - F-Actin antibody IgG normal - mitochondrial M2 antibody normal - hepatitis panel normal - Improving with downtrending LFTs 11/16/2024 PLAN: --dc'd all OTC supplements IP --daily RFP Assessment & Plan (11/17/2024 1:03 PM CDT): Ddx: shock liver vs acetaminophen toxicity vs autoimmune vs toxicity from supplements vs autoimmune Transaminases markedly elevated on admission but downtrending now Unclear baseline - no close PCP followup Ultrasound with no clear etiology for liver injury. No ascites. Trace fluid morrisons pouch. - MPO/PR3 autoantibodies negative - Liver-kidney microsomal antibody IgG negative - MEREDITH not detected - [id number] elevated at 254, but likely a result of recent transfusions - ceruloplasmin normal - F-Actin antibody IgG normal - mitochondrial M2 antibody normal - hepatitis panel normal - Improving with downtrending LFTs 11/16/2024 PLAN: --dc'd all OTC supplements IP --daily RFP Assessment & Plan (11/16/2024 3:51 PM CDT): Ddx: shock liver vs acetaminophen toxicity vs autoimmune vs toxicity from supplements vs autoimmune Transaminases markedly elevated on admission but downtrending now Unclear baseline - no close PCP followup Ultrasound with no clear etiology for liver injury. No ascites. Trace fluid morrisons pouch. - MPO/PR3 autoantibodies negative - Liver-kidney microsomal antibody IgG negative - MEREDITH not detected - [id number] elevated at 254, but likely a result of recent transfusions - ceruloplasmin normal - F-Actin antibody IgG normal - mitochondrial M2 antibody normal - hepatitis panel normal - Improving with downtrending LFTs 11/16/2024 PLAN: --dc all OTC supplements IP --dc LFTs, INR, CBC --daily RFP Assessment & Plan (11/15/2024 2:27 PM CDT): Ddx: shock liver vs acetaminophen toxicity vs autoimmune vs toxicity from supplements vs autoimmune Transaminases markedly elevated on admission but downtrending now Unclear baseline - no close PCP followup Ultrasound with no clear etiology for liver injury. No ascites. Trace fluid morrisons pouch. - MPO/PR3 autoantibodies negative - Liver-kidney microsomal antibody IgG negative - MEREDITH not detected - [id number] elevated at 254, but likely a result of recent transfusions - ceruloplasmin normal - F-Actin antibody IgG normal - mitochondrial M2 antibody normal - hepatitis panel normal PLAN: --dc all OTC supplements IP --daily CBC, CMP, INR Assessment & Plan (11/14/2024 4:23 PM CDT): Ddx: shock liver vs acetaminophen toxicity vs autoimmune vs toxicity from supplements vs autoimmune Transaminases markedly elevated on admission but downtrending now Unclear baseline - no close PCP followup Ultrasound with no clear etiology for liver injury. No ascites. Trace fluid morrisons pouch. - MPO/PR3 autoantibodies negative - Liver-kidney microsomal antibody IgG negative - MEREDITH not detected - [id number] elevated at 254, but likely a result of recent transfusions - ceruloplasmin normal - F-Actin antibody IgG normal - mitochondrial M2 antibody normal - hepatitis panel normal PLAN: --dc all OTC supplements IP --daily CBC, CMP, INR Assessment & Plan (11/13/2024 7:45 PM CDT): Ddx: shock liver vs acetaminophen toxicity vs autoimmune vs toxicity from supplements vs autoimmune Transaminases markedly elevated on admission but downtrending now Unclear baseline - no close PCP followup Ultrasound with no clear etiology for liver injury. No ascites. Trace fluid morrisons pouch. - MPO/PR3 autoantibodies negative - Liver-kidney microsomal antibody IgG negative - MEREDITH not detected - [id number] elevated at 254, but likely a result of recent transfusions - ceruloplasmin normal - F-Actin antibody IgG normal - mitochondrial M2 antibody normal - hepatitis panel normal PLAN: --dc all OTC supplements IP --daily CBC, CMP, INR Assessment & Plan (11/12/2024 4:38 PM CDT): Ddx: shock liver vs acetaminophen toxicity vs autoimmune vs toxicity from supplements vs autoimmune Transaminases markedly elevated on admission but downtrending now Unclear baseline - no close PCP followup Ultrasound with no clear etiology for liver injury. No ascites. Trace fluid morrisons pouch. - MPO/PR3 autoantibodies negative - Liver-kidney microsomal antibody IgG negative - MEREDITH not detected - [id number] elevated at 254, but likely a result of recent transfusions - ceruloplasmin normal - F-Actin antibody IgG normal - mitochondrial M2 antibody normal - hepatitis panel normal PLAN: --dc all OTC supplements IP --daily CBC, CMP, INR Assessment & Plan (11/11/2024 10:25 AM CDT): Ddx: shock liver vs acetaminophen toxicity vs autoimmune vs toxicity from supplements vs autoimmune Transaminases markedly elevated on admission but downtrending now Unclear baseline - no close PCP followup Ultrasound with no clear etiology for liver injury. No ascites. Trace fluid morrisons pouch. - MPO/PR3 autoantibodies negative - Liver-kidney microsomal antibody IgG negative - MEREDITH not detected - [id number]-[id number] elevated at 254, but likely a result of recent transfusions - ceruloplasmin normal - F-Actin antibody IgG normal - mitochondrial M2 antibody normal - hepatitis panel normal PLAN: - Dc all OTC supplements - Daily CBC, CMP, INR Assessment & Plan (11/10/2024 9:29 AM CDT): Ddx: shock liver vs acetaminophen toxicity vs autoimmune vs toxicity from supplements vs autoimmune Transaminases markedly elevated on admission but downtrending now Unclear baseline - no close PCP followup Ultrasound with no clear etiology for liver injury. No ascites. Trace fluid morrisons pouch. PLAN: AMA, MEREDITH, Antismooth muscle antibodies, ANCA panel, anti-LKM1 antibodies, IgG, serum [id number] - ceruloplasmin normal - F-Actin antibody IgG normal - mitochondrial M2 antibody normal - hepatitis panel normal - Dc all OTC supplements - Daily CBC, CMP, INR Assessment & Plan (11/09/2024 7:42 AM CDT): Ddx: shock liver vs acetaminophen toxicity vs autoimmune vs toxicity from supplements vs autoimmune -patient denies alcohol use in the last 40 years - supplements listed above. Of these, ashwagandha and saw palmetto have been associated with hepatocellular injury, as well as supplements with proprietary blends such as his prostate formula. Transaminases markedly elevated but downtrending Unclear baseline - no close PCP followup Ultrasound with no clear etiology for liver injury. No ascites. Trace fluid morrisons pouch. PLAN: AMA, MEREDITH, Antismooth muscle antibodies, ANCA panel, anti-LKM1 antibodies, IgG, serum [id number] - ceruloplasmin normal - F-Actin antibody IgG normal - mitochondrial M2 antibody normal - hepatitis panel normal - Dc all OTC supplements - Daily CBC, CMP, INR Assessment & Plan (11/08/2024 8:01 AM CDT): Ddx: shock liver vs acetaminophen toxicity vs autoimmune vs toxicity from supplements vs autoimmune -patient denies alcohol use in the last 40 years - supplements listed above. Of these, ashwagandha and saw palmetto have been associated with hepatocellular injury, as well as supplements with proprietary blends such as his prostate formula. Transaminases markedly elevated but downtrending Unclear baseline - no close PCP followup Ultrasound with no clear etiology for liver injury. No ascites. Trace fluid morrisons pouch. PLAN: AMA, MEREDITH, Antismooth muscle antibodies, ANCA panel, anti-LKM1 antibodies, IgG, serum [id number] - ceruloplasmin normal - F-Actin antibody IgG normal - mitochondrial M2 antibody normal - hepatitis panel normal - Dc all OTC supplements - Daily CBC, CMP, INR Assessment & Plan (11/07/2024 1:11 PM CDT): Ddx: shock liver vs acetaminophen toxicity vs autoimmune vs toxicity from supplements vs autoimmune -patient denies alcohol use in the last 40 years - supplements listed above. Of these, ashwagandha and saw palmetto have been associated with hepatocellular injury, as well as supplements with proprietary blends such as his prostate formula. Transaminases markedly elevated but downtrending Unclear baseline - no close PCP followup Ultrasound with no clear etiology for liver injury. No ascites. Trace fluid morrisons pouch. PLAN: AMA, MEREDITH, Antismooth muscle antibodies, ANCA panel, anti-LKM1 antibodies, IgG, serum [id number] - ceruloplasmin normal - F-Actin antibody IgG normal - mitochondrial M2 antibody normal - hepatitis panel normal - Dc all OTC supplements - Daily CBC, CMP, INR Assessment & Plan (11/06/2024 3:15 PM CDT): Ddx: shock liver vs acetaminophen toxicity vs autoimmune vs toxicity from supplements -patient denies alcohol use in the last 40 years - supplements listed above. Of these, ashwagandha and saw palmetto have been associated with hepatocellular injury, as well as supplements with proprietary blends such as his prostate formula. Transaminases markedly elevated but downtrending Unclear baseline - no close PCP followup Ultrasound with no clear etiology for liver injury. No ascites. Trace fluid morrisons pouch. PLAN: AMA, MEREDITH, Antismooth muscle antibodies, ANCA panel, anti-LKM1 antibodies, IgG, ceruloplasmin, serum [id number] - F-Actin antibody IgG normal - mitochondrial M2 antibody normal - hepatitis panel normal - Dc all OTC supplements - Dc lactulose - Daily CBC, CMP, INR Assessment & Plan (11/05/2024 1:23 PM CDT): Ddx: shock liver vs acetaminophen toxicity vs autoimmune vs toxicity from supplements -patient denies alcohol use in the last 40 years - supplements listed above. Of these, ashwagandha and saw palmetto have been associated with hepatocellular injury, as well as supplements with proprietary blends such as his prostate formula. Transaminases markedly elevated but downtrending Unclear baseline - no close PCP followup Ultrasound with no clear etiology for liver injury. No ascites. Trace fluid morrisons pouch. PLAN: AMA, MEREDITH, Antismooth muscle antibodies, ANCA panel, anti-LKM1 antibodies, IgG, ceruloplasmin, serum [id number] - F-Actin antibody IgG normal - mitochondrial M2 antibody normal - hepatitis panel normal - Dc all OTC supplements - Dc lactulose - Daily CBC, CMP, INR Assessment & Plan (11/04/2024 6:59 PM CDT): Ddx: shock liver vs acetaminophen toxicity vs alcoholic hepatitis vs autoimmune -patient denies alcohol use in the last 40 years Transaminases markedly elevated but downtrending Unclear baseline - no close PCP followup Ultrasound with no clear etiology for liver injury. No ascites. Trace fluid morrisons pouch. PLAN: AMA, MEREDITH, Antismooth muscle antibodies, ANCA panel, anti-LKM1 antibodies, IgG, ceruloplasmin, serum [id number] - F-Actin antibody IgG normal - mitochondrial M2 antibody normal - hepatitis panel normal - Dc all OTC supplements - Dc lactulose - Daily CBC, CMP, INR Resolved Problems Problem Noted Date Diagnosed Date Resolved Date Overflow diarrhea 11/10/2024 11/15/2024 Assessment & Plan (11/15/2024 2:27 PM CDT): Help [employer]k Support Specialist images from CT chest show large stool burden despite multiple loose BM's per day PLAN: --cont bowel regimen: senna, miralax Assessment & Plan (11/14/2024 4:23 PM CDT): Help Desk Support Specialist images from CT chest show large stool burden despite multiple loose BM's per day PLAN: --cont bowel regimen: senna, miralax Assessment & Plan (11/13/2024 7:45 PM CDT): Help Desk Support Specialist images from CT chest show large stool burden despite multiple loose BM's per day PLAN: --cont bowel regimen: senna, miralax Assessment & Plan (11/12/2024 4:38 PM CDT): Help Desk Support Specialist images from CT chest show large stool burden despite multiple loose BM's per day PLAN: --cont bowel regimen: senna, miralax Assessment & Plan (11/11/2024 6:53 AM CDT): Help Desk Support Specialist images from CT chest show large stool burden despite multiple loose BM's per day PLAN: - senna, miralax Assessment & Plan (11/10/2024 9:29 AM CDT): Help Desk Support Specialist images from CT chest show large stool burden despite multiple loose BM's per day PLAN: - senna, miralax KASEY (acute kidney injury) 11/02/2024 Assessment & Plan (11/10/2024 9:29 AM CDT): Cardiorenal vs hepatorenal syndrome /15 US with solid hypoechoic left renal mass and subcentimeter L renal cyst Per rads: CT urogram or abdominal MRI w contrast (will be ordered outpatient) Start cardiac diet - fluid restrict to 1800 mL Hold lasix today Assessment & Plan (11/09/2024 11:59 AM CDT): Cardiorenal vs hepatorenal syndrome 7/15 US with solid hypoechoic left renal mass and subcentimeter L renal cyst Per rads: CT urogram or abdominal MRI w contrast (will be ordered outpatient) Start cardiac diet - fluid restrict to 1800 mL Hold lasix today Assessment & Plan (11/08/2024 3:02 PM CDT): Cardiorenal vs hepatorenal syndrome 7/15 US with solid hypoechoic left renal mass and subcentimeter L renal cyst Per rads: CT urogram or abdominal MRI w contrast (will be ordered outpatient) Start cardiac diet - fluid restrict to 1800 mL Restart lasix Assessment & Plan (11/07/2024 7:41 AM CDT): Cardiorenal vs hepatorenal syndrome 7/15 US with solid hypoechoic left renal mass and subcentimeter L renal cyst Per rads: CT urogram or abdominal MRI w contrast (will be ordered outpatient) Dc fluid restriction Start cardiac diet Restart lasix Assessment & Plan (11/06/2024 3:34 PM CDT): Cardiorenal vs hepatorenal syndrome 7/15 US with solid hypoechoic left renal mass and subcentimeter L renal cyst Per rads: CT urogram or abdominal MRI w contrast (will be ordered outpatient) Dc fluid restriction Start cardiac diet Restart lasix Assessment & Plan (11/05/2024 1:23 PM CDT): Cardiorenal vs hepatorenal syndrome 7/15 US with solid hypoechoic left renal mass and subcentimeter L renal cyst Per rads: CT urogram or abdominal MRI w contrast Dc fluid restriction Start cardiac diet Restart lasix today Assessment & Plan (11/04/2024 6:59 PM CDT): Cardiorenal vs hepatorenal syndrome 7/15 US with solid hypoechoic left renal mass and subcentimeter L renal cyst Per rads: CT urogram or abdominal MRI w contrast Dc fluid restriction Start cardiac diet Holding diuretics today 11/04 Leukocytosis (leucocytosis) 11/02/2024 11/04/2024 Assessment & Plan (11/04/2024 6:33 PM CDT): Resolved Encounters Date Type Department Care Team Description 11/20/2024 Transitional Care [facility] CARE COORDINATION [address] [place] [address] Lin Mauricio RN Transitions Of Care 11/20/2024 Travel 11/17/2024 7:15 AM CDT - 11/17/2024 9:44 AM CDT Surgery [facility] - Cardiac Super[facility] [employer] [address] [place] [address] Raulito Santos MD Percutaneous Coronary Intervention 11/06/2024 7:15 AM CDT - 11/06/2024 8:56 AM CDT Surgery [facility] - [facility] [employer] [address] [place] [address] Raulito Santos MD Left and right heart cath 11/01/2024 9:26 PM CDT - 11/19/2024 2:25 PM CDT Hospital Encounter [facility] 8N ACUTE [address] [place] [address] Edgard Guajardo MD Stoeckel, MD Kat Zaragoza, MD Nash Webber, MD Harmeet Torres III, Joshua C, DO Masud, Kiersten Ordoñez MD Gastroenterology Discharge Disposition: Home or Self Care 11/01/2024 Travel 10/31/2024 Telephone [facility] INTERNAL MED [address] [place] [address] Jesse Gordon MD General (Outside hospital transfer request.) from Last 3 Months Social History Tobacco Use Types Packs/Day Years Used Date Smoking Tobacco: Former Cigarettes Smokeless Tobacco: Never Tobacco Cessation:Counseling Given: Not Answered Alcohol Use Standard Drinks/Week Comments Not Currently [...] and heating? Not hard at all 11/01/2024 [facility] [place] of Occupat ional Health - Occupational Stress [...] any time in the past 12 m [facility], were you homeless or living in a residential (including now)? No 11/01/2024 Sex and Gender Information Value Date Recorded Sex Assigned at Not on file Legal Sex Male 10:11 AM CDT Gender Identity Not on file Sexual Orientation Not on file Last Filed Vital Signs Vital Sign Reading Time Taken Comments Blood Pressure 113/77 11/19/2024 12:34 PM CDT Pulse 107 11/19/2024 12:34 PM CDT Temperature 36.7 C (98 F) 11/19/2024 11:57 AM CDT Respiratory Rate 18 11/19/2024 4:14 AM CDT Oxygen Saturation 100% 11/19/2024 12:34 PM CDT Inhaled Oxygen Concentration - - Weight 65.4 kg (144 lb 3.2 oz) 11/19/2024 4:20 A M CDT Height 167.6 cm (5' 6) 11/01/2024 10:00 PM CDT Body Mass Index 23.27 11/01/2024 10:00 PM CDT Plan of Treatment Upcoming Encounters Date Type Department Care Team (Late st Contact Info) Description 11/23/2024 10:30 AM CDT Office Visit Transitional Care at [address] [address] Health Maintenance Due Date Last Done Comments DTAP/TDAP/TD VACCINES (1 - Tdap) 1969 PNEUMOCOCCAL VACCINE 50+ (1 of 1 - PCV) 1998 ZOSTER VACCINE (1 of 2) 1998 Respiratory Syncytial Virus (RSV) Vaccine Pt: or over 60 yrs (1 - 1-dose 75+ series) 2023 COVID-19 VACCINE (1 - 2023-2 5 season) 2023 DEPRESSION SCREENING 04/19/2024 MEDICARE AWV CALENDAR YEAR 2024 INFLUENZA VACCINE (#1) 2024 HEPATITIS C SCREENING Completed 11/01/2024 , 11/01/2024, 10/31/2024 HEPATITIS B VACCINE Aged Out No longe r eligible based on patient's age to complete this topic HIB VACCINE Aged Out No longer eligi ble based on patient's age to complete this topic HPV VACCINE Aged Out No longer eligi ble based on patient's age to complete this topic MENINGOCOCCAL (Group B) VACCINE SHARED DECISION-MAKING Aged Out No longer eligible based on patient's age to complete this topic MENINGOCOCCAL GROUPS A/C/Y/W VACCINE Aged Out No longer eligible b ased on patient's age to complete this topic Medical Devices Implanted Type Area Pressure Test Operator Device Identifier Shelf Expiration Date Model / Serial / Lot Sys Cor Stent Sng Megatron 4mm 32mm - [id number] Implanted:Qty: 1 on 11/17/2024 by Raulito Santos MD at [facility] [employer] [id number] 01/24/2026 [id number] / [id number] / [id number] Sys Cor Stent Xienceskpt 2.75mm 28mm Rap - [id number] Implanted:Qty: 1 on 11/17/2024 by Raulito Santos MD at [facility] [employer] [id number] 07/26/2027 [id number] 75-28 / [id number] / [id number] Sys Cor Stent Xienceskpt 3.50mm 38mm Rap - [id number] Implanted:Qty: 1 on 11/17/2024 by Raulito Santos MD at [facility] [employer] [id number] 09/08/2027 [id number] 50-38 / [id number] / [id number] Explanted Type Area Pressure Test Operator Device Identifier Shelf Expiration Date Model / Serial / Lot Set Bld Perinatal Technician Impella Bndl Cath Perinatal Technician + - [id number] Explanted:Qty: 1 on 11/17/2024 by Raulito Santos MD at [facility] [employer] 07/17/2026 [id number] / [id number] / [id number] Procedures Procedure Name Priority Date/Time Associated Diagnosis Comments GLUCOSE - POINT OF CARE Routine 11/19/2024 11:54 AM CDT GLUCOSE - POINT OF CARE Routine 11/19/2024 7:46 AM CDT CORTISOL BLOOD AM Routine 11/19/2024 1:1 3 AM CDT RENAL FUNCTION PANEL AM Draw 11/19/2024 1:13 AM CDT MAGNESIUM BLOOD AM Draw 11/19/2024 1:13 AM CDT SODIUM BLOOD Timed 11/18/2024 8:41 PM CDT GLUCOSE - POINT OF CARE Routine 11/18/2024 4:41 PM CDT BASIC METABOLIC PANEL (CALCIUM TOTAL) Timed 11/18/2024 2:09 PM CDT OSMOLALITY URINE NATASHA 11/18/2024 12:5 1 PM CDT LYTES (NA K CL) URINE RANDOM PANEL NATASHA 11/18/2024 12:51 PM CDT GLUCOSE - POINT OF CARE Routine 11/18/2024 11:37 AM CDT GLUCOSE - POINT OF CARE Routine 11/18/2024 8:24 AM CDT CBC W/O DIFFERENTIAL AM Draw 11/18/2024 1:47 AM CDT RENAL FUNCTION PANEL AM Draw 11/18/2024 1:47 AM CDT MAGNESIUM BLOOD AM Draw 11/18/2024 1:47 AM CDT GLUCOSE - POINT OF CARE Routine 11/17/2024 6:54 PM CDT CCL RIGHT HEART CATH Routine 11/17/2024 11:41 AM CDT Cardiogenic shock (HCC) CCL IMPELLA REMOVAL Routine 11/17/2024 1 1:41 AM CDT Cardiogenic shock (HCC) CCL PERIPHERAL ANGIOGRAM Routine 11/17/2024 11:41 AM CDT Cardiogenic shock (HCC) CCL CORONARY IVUS Routine 11/17/2024 11: 41 AM CDT Cardiogenic shock (HCC) CCL IMPELLA INSERTION Routine 11/17/2024 11:41 AM CDT Cardiogenic shock (HCC) CCL IFR Routine 11/17/2024 11:41 AM CDT Cardiogenic shock (HCC) CCL PERCUTANEOUS CORONARY INTERVENTION Routine 11/17/2024 11:41 AM CDT Cardiogenic shock (HCC) ACT LR - POCT (SS) Routine 11/17/2024 11:14 AM CDT ACT LR - POCT (SS) Routine 11/17/2024 10:05 AM CDT ACT LR - POCT (SS) Routine 11/17/2024 9:20 AM CDT ACT LR - POCT (SS) Routine 11/17/2024 8:38 AM CDT GLUCOSE - POINT OF CARE Routine 11/17/2024 5:44 AM CDT RENAL FUNCTION PANEL AM Draw 11/17/2024 3:18 AM CDT MAGNESIUM BLOOD AM Draw 11/17/2024 3:18 AM CDT GLUCOSE - POINT OF CARE Routine 11/16/2024 11:46 PM CDT VAS RIGHT ARTERIAL DUPLEX LE Routine 11/16/2024 3:55 PM CDT Inguinal hernia of right side without obstruction or gangrene GLUCOSE - POINT OF CARE Routine 11/16/2024 6:17 AM CDT PHOSPHORUS BLOOD AM Draw 11/16/2024 2:53 AM CDT COMPREHENSIVE METABOLIC PANEL AM Draw 11/16/2024 2:53 AM CDT PT-INR AM Draw 11/16/2024 2:53 AM CDT MAGNESIUM BLOOD AM Draw 11/16/2024 2:53 AM CDT CBC W AUTO DIFFERENTIAL AM Draw 11/16/2024 2:53 AM CDT GLUCOSE - POINT OF CARE Routine 11/16/2024 12:11 AM CDT GLUCOSE - POINT OF CARE Routine 11/15/2024 11:18 AM CDT PHOSPHORUS BLOOD AM Draw 11/15/2024 2:16 AM CDT COMPREHENSIVE METABOLIC PANEL AM Draw 11/15/2024 2:16 AM CDT PT-INR AM Draw 11/15/2024 2:16 AM CDT MAGNESIUM BLOOD AM Draw 11/15/2024 2:16 AM CDT CBC W AUTO DIFFERENTIAL AM Draw 11/15/2024 2:16 AM CDT GLUCOSE - POINT OF CARE Routine 11/15/2024 12:36 AM CDT MRI CARDIAC STUDY WWO CONTRAST Routine 11/14/2024 5:14 PM CDT Heart failure with reduced ejection fraction (HCC) GLUCOSE - POINT OF CARE Routine 11/14/2024 11:21 AM CDT GLUCOSE - POINT OF CARE Routine 11/14/2024 5:54 AM CDT PHOSPHORUS BLOOD AM Draw 11/14/2024 1:14 AM CDT COMPREHENSIVE METABOLIC PANEL AM Draw 11/14/2024 1:14 AM CDT PT-INR AM Draw 11/14/2024 1:14 AM CDT MAGNESIUM BLOOD AM Draw 11/14/2024 1:14 AM CDT CBC W AUTO DIFFERENTIAL AM Draw 11/14/2024 1:14 AM CDT GLUCOSE - POINT OF CARE Routine 11/13/2024 11:26 PM CDT GLUCOSE - POINT OF CARE Routine 11/13/2024 11:29 AM CDT PHOSPHORUS BLOOD AM Draw 11/13/2024 4:03 AM CDT COMPREHENSIVE METABOLIC PANEL AM Draw 11/13/2024 4:03 AM CDT PT-INR AM Draw 11/13/2024 4:03 AM CDT MAGNESIUM BLOOD AM Draw 11/13/2024 4:03 AM CDT CBC W AUTO DIFFERENTIAL AM Draw 11/13/2024 4:03 AM CDT GLUCOSE - POINT OF CARE Routine 11/13/2024 12:20 AM CDT GLUCOSE - POINT OF CARE Routine 11/12/2024 6:45 PM CDT GLUCOSE - POINT OF CARE Routine 11/12/2024 12:24 PM CDT GLUCOSE - POINT OF CARE Routine 11/12/2024 5:26 AM CDT PHOSPHORUS BLOOD AM Draw 11/12/2024 2:53 AM CDT COMPREHENSIVE METABOLIC PANEL AM Draw 11/12/2024 2:53 AM CDT PT-INR AM Draw 11/12/2024 2:53 AM CDT MAGNESIUM BLOOD AM Draw 11/12/2024 2:53 AM CDT CBC W AUTO DIFFERENTIAL AM Draw 11/12/2024 2:53 AM CDT GLUCOSE - POINT OF CARE Routine 11/11/2024 11:57 PM CDT GLUCOSE - POINT OF CARE Routine 11/11/2024 6:18 PM CDT OSMOLALITY URINE Routine 11/11/2024 12:3 5 PM CDT SODIUM URINE RANDOM Routine 11/11/2024 1 2:35 PM CDT GLUCOSE - POINT OF CARE Routine 11/11/2024 11:28 AM CDT PHOSPHORUS BLOOD AM Draw 11/11/2024 2:47 AM CDT COMPREHENSIVE METABOLIC PANEL AM Draw 11/11/2024 2:47 AM CDT PT-INR AM Draw 11/11/2024 2:47 AM CDT MAGNESIUM BLOOD AM Draw 11/11/2024 2:47 AM CDT CBC W AUTO DIFFERENTIAL AM Draw 11/11/2024 2:47 AM CDT GLUCOSE - POINT OF CARE Routine 11/10/2024 8:23 PM CDT GLUCOSE - POINT OF CARE Routine 11/10/2024 4:25 PM CDT GLUCOSE - POINT OF CARE Routine 11/10/2024 11:48 AM CDT GLUCOSE - POINT OF CARE Routine 11/10/2024 6:10 AM CDT DIFFERENTIAL MANUAL AM Draw 11/10/2024 2 :41 AM CDT PHOSPHORUS BLOOD AM Draw 11/10/2024 2:41 AM CDT COMPREHENSIVE METABOLIC PANEL AM Draw 11/10/2024 2:41 AM CDT PT-INR AM Draw 11/10/2024 2:41 AM CDT MAGNESIUM BLOOD AM Draw 11/10/2024 2:41 AM CDT CBC W AUTO DIFFERENTIAL AM Draw 11/10/2024 2:41 AM CDT GLUCOSE - POINT OF CARE Routine 11/10/2024 12:30 AM CDT GLUCOSE - POINT OF CARE Routine 11/09/2024 5:50 PM CDT GLUCOSE - POINT OF CARE Routine 11/09/2024 1:01 PM CDT DIFFERENTIAL MANUAL AM Draw 11/09/2024 2 :59 AM CDT PHOSPHORUS BLOOD AM Draw 11/09/2024 2:59 AM CDT COMPREHENSIVE METABOLIC PANEL AM Draw 11/09/2024 2:59 AM CDT PT-INR AM Draw 11/09/2024 2:59 AM CDT MAGNESIUM BLOOD AM Draw 11/09/2024 2:59 AM CDT CBC W AUTO DIFFERENTIAL AM Draw 11/09/2024 2:59 AM CDT GLUCOSE - POINT OF CARE Routine 11/09/2024 12:48 AM CDT VAS CAROTID DUPLEX BILATERAL Routine 11/08/2024 1:01 PM CDT Heart failure with reduced ejection fraction (HCC) VAS BILATERAL VENOUS MAPPING Routine 11/08/2024 12:59 PM CDT Heart failure with reduced ejection fraction (HCC) GLUCOSE - POINT OF CARE Routine 11/08/2024 11:40 AM CDT BEDSIDE SPIROMETRY Routine 11/08/2024 9: [address] CHEST WO CONTRAST Routine 11/08/2024 8:47 AM CDT Heart failure with reduced ejection fraction (HCC) GLUCOSE - POINT OF CARE Routine 11/08/2024 5:28 AM CDT DIFFERENTIAL MANUAL AM Draw 11/08/2024 3 :01 AM CDT PHOSPHORUS BLOOD AM Draw 11/08/2024 3:01 AM CDT COMPREHENSIVE METABOLIC PANEL AM Draw 11/08/2024 3:01 AM CDT PT-INR AM Draw 11/08/2024 3:01 AM CDT MAGNESIUM BLOOD AM Draw 11/08/2024 3:01 AM CDT CBC W AUTO DIFFERENTIAL AM Draw 11/08/2024 3:01 AM CDT GLUCOSE - POINT OF CARE Routine 11/08/2024 12:11 AM CDT GLUCOSE - POINT OF CARE Routine 11/07/2024 7:44 PM CDT GLUCOSE - POINT OF CARE Routine 11/07/2024 4:40 PM CDT GLUCOSE - POINT OF CARE Routine 11/07/2024 12:33 PM CDT DIFFERENTIAL MANUAL AM Draw 11/07/2024 8 :43 AM CDT PHOSPHORUS BLOOD AM Draw 11/07/2024 8:43 AM CDT COMPREHENSIVE METABOLIC PANEL AM Draw 11/07/2024 8:43 AM CDT PT-INR AM Draw 11/07/2024 8:43 AM CDT MAGNESIUM BLOOD AM Draw 11/07/2024 8:43 AM CDT CBC W AUTO DIFFERENTIAL AM Draw 11/07/2024 8:43 AM CDT GLUCOSE - POINT OF CARE Routine 11/07/2024 5:52 AM CDT GLUCOSE - POINT OF CARE Routine 11/07/2024 1:38 AM CDT GLUCOSE - POINT OF CARE Routine 11/06/2024 5:49 PM CDT GLUCOSE - POINT OF CARE Routine 11/06/2024 11:40 AM CDT CCL PERIPHERAL ANGIOGRAM Routine 11/06/2024 9:36 AM CDT Heart failure with reduced ejection fraction (HCC) CORONARY ANGIOGRAPHY Routine 11/06/2024 9:36 AM CDT Heart failure with reduced ejection fraction (HCC) CCL IFR Routine 11/06/2024 9:36 AM CDT Heart failure with reduced ejection fraction (HCC) CCL LEFT AND RIGHT HEART CATH Routine 11/06/2024 9:36 AM CDT Heart failure with reduced ejection fraction (HCC) ACT LR - POCT ([facility]) Routine 11/06/2024 9:31 AM CDT ACT LR - POCT ([facility]) Routine 11/06/2024 8:54 AM CDT GLUCOSE - POINT OF CARE Routine 11/06/2024 6:22 AM CDT DIFFERENTIAL MANUAL AM Draw 11/06/2024 3 :41 AM CDT PHOSPHORUS BLOOD AM Draw 11/06/2024 3:41 AM CDT COMPREHENSIVE METABOLIC PANEL AM Draw 11/06/2024 3:41 AM CDT PT-INR AM Draw 11/06/2024 3:41 AM CDT MAGNESIUM BLOOD AM Draw 11/06/2024 3:41 AM CDT CBC W AUTO DIFFERENTIAL AM Draw 11/06/2024 3:41 AM CDT GLUCOSE - POINT OF CARE Routine 11/05/2024 11:46 PM CDT RENAL FUNCTION PANEL Timed 11/05/2024 11:30 PM CDT GLUCOSE - POINT OF CARE Routine 11/05/2024 6:25 PM CDT GLUCOSE - POINT OF CARE Routine 11/05/2024 12:05 PM CDT GLUCOSE - POINT OF CARE Routine 11/05/2024 6:24 AM CDT PHOSPHORUS BLOOD AM Draw 11/05/2024 3:07 AM CDT COMPREHENSIVE METABOLIC PANEL AM Draw 11/05/2024 3:07 AM CDT PT-INR AM Draw 11/05/2024 3:07 AM CDT MAGNESIUM BLOOD AM Draw 11/05/2024 3:07 AM CDT CBC W AUTO DIFFERENTIAL AM Draw 11/05/2024 3:07 AM CDT GLUCOSE - POINT OF CARE Routine 11/05/2024 12:05 AM CDT CALCIUM URINE RANDOM Routine 11/04/2024 4:26 PM CDT GLUCOSE - POINT OF CARE Routine 11/04/2024 1:05 PM CDT HIV-1 HIV-2 ANTIBODY + HIV P24 AG PANEL Routine 11/04/2024 1:03 PM CDT Hepatic trauma, initial encounter Leukocytosis, unspecified type Elevated troponin Cardiogenic shock (HCC) Transaminitis Urinary retention KASEY (acute kidney injury) Heart failure with reduced ejection fraction (HCC) IRON + TRANSFERRIN PANEL Routine 11/04/2024 1:03 PM CDT BASIC METABOLIC PANEL (CALCIUM TOTAL) Routine 11/04/2024 1:03 PM CDT RENAL FUNCTION PANEL Timed 11/04/2024 6:12 AM CDT COMPREHENSIVE METABOLIC PANEL AM Draw 11/04/2024 6:12 AM CDT PT-INR AM Draw 11/04/2024 6:12 AM CDT MAGNESIUM BLOOD AM Draw 11/04/2024 6:12 AM CDT CBC W AUTO DIFFERENTIAL AM Draw 11/04/2024 6:12 AM CDT GLUCOSE - POINT OF CARE Routine 11/04/2024 5:35 AM CDT RENAL FUNCTION PANEL Timed 11/04/2024 12:31 AM CDT GLUCOSE - POINT OF CARE Routine 11/03/2024 11:50 PM CDT [id number] BLOOD PHENOTYPING PANEL Routine 11/03/2024 8:40 PM CDT LIVER KIDNEY MICROSOME - 1 ANTIBODY IGG Routine 11/03/2024 8:40 PM CDT MEREDITH BLOOD SCREEN W/REFLEX TITER Routine 11/03/2024 8:40 PM CDT RENAL FUNCTION PANEL Timed 11/03/2024 6:01 PM CDT MPO/NV 3 AUTOANTIBODIES PANEL Routine 11/03/2024 6:01 PM CDT OT EVAL AND TREAT Routine 11/03/2024 8:4 0 AM CDT LIPID PROFILE Routine 11/03/2024 8:00 AM CDT HEMOGLOBIN A1C Routine 11/03/2024 8:00 AM CDT FERRITIN Routine 11/03/2024 8:00 AM CDT TSH Routine 11/03/2024 8:00 AM CDT RENAL FUNCTION PANEL Timed 11/03/2024 8:00 AM CDT CALCIUM IONIZED WHOLE BLOOD AM Draw 11/03/2024 12:46 AM CDT COMPREHENSIVE METABOLIC PANEL AM Draw 11/03/2024 12:46 AM CDT PT-INR AM Draw 11/03/2024 12:46 AM CDT MAGNESIUM BLOOD AM Draw 11/03/2024 12:46 AM CDT CBC W AUTO DIFFERENTIAL AM Draw 11/03/2024 12:46 AM CDT RENAL FUNCTION PANEL Timed 11/03/2024 12:46 AM CDT RENAL FUNCTION PANEL Timed 11/02/2024 8:47 PM CDT PT-INR Routine 11/02/2024 5:59 PM CDT CULTURE BLOOD Timed 11/02/2024 5:59 PM CDT CULTURE BLOOD Timed 11/02/2024 5:59 PM CDT ECHO COMPLETE W CONTRAST STAT 11/02/2024 5:07 PM CDT Cardiogenic shock (HCC) PT EVAL AND TREAT Routine 11/02/2024 4:1 8 PM CDT OT EVAL AND TREAT Routine 11/02/2024 4:1 8 PM CDT EKG 12-LEAD Routine 11/02/2024 11:46 AM CDT Elevated troponin B-TYPE NATRIURETIC PEPTIDE AM Draw 11/02/2024 11:41 AM CDT LACTIC ACID BLOOD Routine 11/02/2024 11: 41 AM CDT TROPONIN-I HIGH SENSITIVE Routine 11/02/2024 11:41 AM CDT SODIUM URINE RANDOM Routine 11/02/2024 1 1:27 AM CDT CREATININE URINE RANDOM Routine 11/02/2024 11:27 AM CDT UREA NITROGEN URINE RANDOM Routine 11/02/2024 11:27 AM CDT XR ABDOMEN KUB PORTABLE STAT 11/02/2024 9:57 AM CDT Hepatic trauma, initial encounter US ABDOMEN LTD W COMP DOPPLER Routine 11/02/2024 9:47 AM CDT Hepatic trauma, initial encounter RESPIRATORY PANEL WITH SARS-COV-2 BY PCR (STL) Routine 11/02/2024 8:18 AM CDT TROPONIN-I HIGH SENSITIVE Routine 11/02/2024 8:16 AM CDT XR CHEST 1VW PORTABLE Routine 11/02/2024 5:41 AM CDT Hepatic trauma, initial encounter EKG 12-LEAD Routine 11/02/2024 5:29 AM CDT Hepatic trauma, initial encounter URINALYSIS REFLEX TO MICROSCOPIC NO CULTURE STAT 11/01/2024 11:39 PM CDT TROPONIN-I HIGH SENSITIVE STAT 11/01/2024 11:23 PM CDT AMMONIA Routine 11/01/2024 11:23 PM CDT CERULOPLASMIN Routine 11/01/2024 11:23 PM CDT HEPATITIS C RNA QUANTITATIVE Routine 11/01/2024 11:23 PM CDT HEPATITIS B DNA QUANT Routine 11/01/2024 11:23 PM CDT SMOOTH MUSCLE ANTIBODY W REFLEX TITER Routine 11/01/2024 11:23 PM CDT PT-INR Routine 11/01/2024 11:23 PM CDT MITOCHONDRIAL ANTIBODY SCREEN Routine 11/01/2024 11:23 PM CDT HEPATITIS B SURFACE ANTIBODY QUANT Routine 11/01/2024 11:23 PM CDT HEPATITIS SCREEN ACUTE Routine 11:23 PM CDT HEPATITIS B PANEL AM Draw 11/01/2024 11: 23 PM CDT ACETAMINOPHEN LEVEL Routine 11/01/2024 1 1:23 PM CDT MAGNESIUM BLOOD STAT 11/01/2024 11:23 PM CDT PHOSPHORUS BLOOD STAT 11/01/2024 11:2 3 PM CDT CBC W AUTO DIFFERENTIAL STAT 11/01/2024 11:23 PM CDT COMPREHENSIVE METABOLIC PANEL STAT 11/01/2024 11:23 PM CDT LACTIC ACID BLOOD STAT 11/01/2024 11: 23 PM CDT from Last 3 Months Results * (ABNORMAL) GLUCOSE - POINT OF CARE (11/19/2024 11:54 AM CDT) Only the most recent of50 resultswithin the time period is included. [facility] Glucose WB/POC 243(H) 70 - 99 mg/dL 11/19/2024 12:08 PM CDT [facility] Specimen Type Arterial/C apillary 11/19/2024 12:08 PM CDT [facility] Blood BLOOD SPECIMEN / Unknown 11/19/2024 11:54 AM CDT 11/19/2024 12:08 PM CDT us Kiersten De La Paz MD LAB - POINT OF CARE ORDERAB LES Final Result [address] [address], [facility] [phone] * (ABNORMAL) RENAL FUNCTION PANEL (11/19/2024 1:13 AM CDT) Only the most recent of10 resultswithin the time period is included. [facility] BUN 13 7 - 26 mg/dL 11/19/2024 2:29 AM CDT [facility] Creatinine 0.77 0.71 - 1.16 mg/dL 11/19/2024 2:29 AM CDT [facility] Sodium 130(L) 136 - 145 mmol/L 11/19/2024 2:29 AM [facility] Potassium 3.9 3.5 - 4.5 mmol/L 11/19/2024 2:29 AM [facility] Chloride 101 98 - 107 mmol/L 11/19/2024 2:29 AM [facility] CO2 23 22 - 29 mmol/L 11/19/2024 2:29 AM [facility] Glucose 117(H) 70 - 99 mg/dL 11/19/2024 2:29 AM [facility] Albumin 2.3(L) 3.4 - 5.0 g/dL 11/19/2024 2:29 AM [facility] Calcium 7.3(L) 8.4 - 10.2 mg/dL 11/19/2024 2:29 AM [facility] Phosphorus 2.3(L) 2.8 - 5.1 mg/dL 11/19/2024 2:29 AM [facility] Anion Gap 6 6 - 16 11/19/2024 2:29 AM [facility] BUN/Creatinine Ratio 17 7 - 23 11/19/2024 2:29 AM [facility] Osmolality Calculated 271(L) 275 - 295 mOsm/kg 11/19/2024 2:29 AM [facility] eGFR by CKD-EPI >90 >=90 mL/min/1.7 3 m2 11/19/2024 2:29 AM [facility] Comment:Estimated Glomerular Filtration Rate (eGFR) calculated using the CKD-EPI Creatinine Equation (2020), per the [employer] and [place] [employer] recommendations. Blood BLOOD SPECIMEN / Unknown Lab Venipuncture / Unknown 11/19/2024 1:13 AM CDT 11/19/2024 1:48 AM CDT us Raoul Ga DO LAB - CHEMISTRY ORDERABLES Fin al Result [facility] [address] [place] [address], [facility] [phone] * MAGNESIUM BLOOD (11/19/2024 1:13 AM CDT) Only the most recent of18 resultswithin the time period is included. Magnesium 1.8 1.6 - 2.6 mg/dL 11/19/2024 2:29 AM CDT [facility] Blood BLOOD SPECIMEN / Unknown Lab Venipuncture / Unknown 11/19/2024 1:13 AM CDT 11/19/2024 1:48 AM CDT Lamberto Singh MD LAB - CHEMISTRY ORDERABLES F inal Result Performing Organization Address City/[facility] [address]/ZIP Co de Phone Number [address] [address], [facility] [phone] * CORTISOL BLOOD AM (11/19/2024 1:13 AM CDT) Cortisol AM 15.3 3.7 - 19.4 ug/dL 11/19/2024 2:45 AM CDT [facility] Blood BLOOD SPECIMEN / Unknown Lab Venipuncture / Unknown 11/19/2024 1:13 AM CDT 11/19/2024 1:48 AM CDT Narrative [facility] - 11/19/2024 2:45 AM CDT Normal cortisol levels are generally highest in the morning hours and lowest from late evening through the polisher apprentice hours (8 PM to 4 AM). The PM measurements of cortisol run approximately one-half to one-third of the AM values. Hugo De La Cruz APRN-ENGAGEMENT MANAGER LAB - CHEMISTRY ORDERABL ES Final Result Performing Organization Address [facility] [address]/[facility] Co de Phone Number [address] [phone], [facility] [phone] * (ABNORMAL) SODIUM BLOOD (11/18/2024 8:41 PM CDT) Sodium 130(L) 136 - 145 mmol/L 11/18/2024 9:23 PM CDT [facility] Blood BLOOD SPECIMEN / Unknown Venipuncture / Unknown 11/18/2024 8:41 PM CDT 11/18/2024 9:04 PM CDT us Hugo De La Cruz [employer] [place] ASSESSOR-ENGAGEMENT MANAGER LAB - CHEMISTRY ORDERABL ES Final Result [facility] [address] [place] [address], [facility] [phone] * (ABNORMAL) BASIC METABOLIC PANEL (CALCIUM TOTAL) (11/18/2024 2:09 PM CDT) Only the most recent of2 resultswithin the time period is included. BUN 13 7 - 26 mg/dL 11/18/2024 2:41 PM [facility] Creatinine 0.73 0.71 - 1.16 mg/dL 11/18/2024 2:41 PM [facility] Sodium 128(L) 136 - 145 mmol/L 11/18/2024 2:41 PM [facility] Potassium 4.3 3.5 - 4.5 mmol/L 11/18/2024 2:41 PM [facility] Chloride 101 98 - 107 mmol/L 11/18/2024 2:41 PM [facility] CO2 22 22 - 29 mmol/L 11/18/2024 2:41 PM [facility] Glucose 132(H) 70 - 99 mg/dL 11/18/2024 2:41 PM [facility] Calcium 7.4(L) 8.4 - 10.2 mg/dL 11/18/2024 2:41 PM [facility] Anion Gap 5(L) 6 - 16 11/18/2024 2:41 PM [facility] BUN/Creatinine Ratio 18 7 - 23 11/18/2024 2:41 PM [facility] Osmolality Calculated 268(L) 275 - 295 mOsm/kg 11/18/2024 2:41 PM [facility] eGFR by CKD-EPI >90 >=90 mL/min/1.7 3 m2 11/18/2024 2:41 PM [facility] Comment:Estimated Glomerular Filtration Rate (eGFR) calculated using the CKD-EPI Creatinine Equation (2020), per the [employer] and [place] [employer] recommendations. Blood BLOOD SPECIMEN / Unknown Venipuncture / Unknown 11/18/2024 2:09 PM CDT 11/18/2024 2:14 PM CDT [facility] [facility] - CHEMISTRY ORDERABL ES Final Result Performing Organization Address City/[facility] [address]/ZIP Co de Phone Number [address] [address], [place] [phone] * OSMOLALITY URINE (11/18/2024 12:51 PM CDT) Only the most recent of2 resultswithin the time period is included. Osmolality Urine 683 50 - 1,200 mOsm/kg 11/18/2024 1:36 PM CDT [facility] Urine URINE SPECIMEN OBTAINED BY CLEAN CATCH PROCEDURE / Unknown Collection / Unknown 11/18/2024 12:51 PM CDT 11/18/2024 1:00 PM CDT [facility] - URINE CHEMISTRY OR DERABLES Final Result Performing Organization Address [facility] [address]/ZIP Co de Phone Number [address] [address], [place] [phone] * LYTES (NA K CL) URINE RANDOM PANEL (11/18/2024 12:51 PM CDT) Sodium Urine 67 Not Established mmol/L 11/18/2024 1:29 PM CDT [facility] Potassium Urine 66.5 Not Established mmol/L 11/18/2024 1:29 PM CDT [facility] Chloride Random Urine 47 Not Established mmol/L 11/18/2024 1:29 PM CDT [facility] Urine URINE SPECIMEN OBTAINED BY CLEAN CATCH PROCEDURE / Unknown Collection / Unknown 11/18/2024 12:51 PM CDT 11/18/2024 1:00 PM CDT [facility] - URINE CHEMISTRY OR DERABLES Final Result [address] [place] [address], [facility] [phone] * (ABNORMAL) CBC W/O DIFFERENTIAL (11/18/2024 1:47 AM CDT) [facility] WBC 9.4 4.0 - 10.7 x10E9/L 11/18/2024 2:58 AM [facility] RBC Count 3.47(L) 4.30 - 5.80 x10E12/L 11/18/2024 2:58 AM [facility] Hemoglobin 10.1(L) 13.3 - 17.5 g/dL 11/18/2024 2:58 AM [facility] Hematocrit 30.9(L) 38.7 - 51.1 % 11/18/2024 2:58 AM [facility] MCV 89.0 80.0 - 98.0 fL 11/18/2024 2:58 AM [facility] MCH 29.1 26.7 - 33.6 pg 11/18/2024 2:58 AM [facility] MCHC 32.7 31.7 - 36.3 g/dL 11/18/2024 2:58 AM [facility] RDW-CV 15.4(H) 11.3 - 14.8 % 11/18/2024 2:58 AM [facility] Platelet Count 260 150 - 420 x10E9/L 11/18/2024 2:58 AM [facility] MPV 9.5 7.8 - 11.4 fL 11/18/2024 2:58 AM [facility] Blood BLOOD SPECIMEN / Unknown Lab Venipuncture / Unknown 11/18/2024 1:47 AM CDT 11/18/2024 2:49 AM CDT Raoul Ga DO LAB - HEMATOLOGY ORDERABLES Fi nal Result [address] [address], [facility] [phone] * CCL PERCUTANEOUS CORONARY INTERVENTION, CCL IFR, CCL IMPELLA INSERTION, CCL CORONARY IVUS, CCL PERIPHERAL ANGIOGRAM, CCL IMPELLA REMOVAL, CCL RIGHT HEART CATH (11/17/2024 11:41 AM CDT) Only the most recent of2 resultswithin the time period is included. Anatomical Region Laterality Modality X-Ray Angiograph y Narrative 11/17/2024 11:47 PM CDT 50-60% LM/proximal LAD/mid LAD stenosis s/p successful IVUS-guided implant of overlapping 3.5 x 38, 2.75 x 28 mm Xience Skypoint MIRIAM (proximally dilated to 5 mm); 0% (LAD)-10% (LM) residual stenosis TIMI3 flow. Tandem 80% proximal RCA stenosis, s/p successful IVUS-guided implant of 4 x 32 mm Synergy Megatron MIRIAM; 0% residual stenosis TIMI3 flow. 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 Diagonal 2 branch s/p PTCA as part of bifurcation technique, 0% resiual TIMI3 flow. Ostial LCX s/p PTCA as part of bifurcation technique, 0% residual TIMI3 flow. Normal biventricular filling pressures, normal cardiac output and index, no pulmonary hypertension at baseline. Successful Impella CP insertion via left femoral artery and explant at the end of procedure with hemostasis by Perclose and AngioSeal. Left femoral vein access, hemostasis by Perclose and AngioSeal. Reason for Procedure 74 year old male with PMH of HFrEF (EF of 25%) who initially presented from OSH for acute liver injury c/b KASEY and concern for cardiogenic shock. Was on inotrope support, eventually weaned off. Patient had an LHC which showed 60% pLAD (iFR 0.72) and 50% dLM disease, 100%rPDA PER ASSESSMENT NURSE. Cardiac MRI with no scar. CT surgery turned the patient down for CABG, hence surgical turndown status (+). He presents today for PCI. Procedure Details Estimated Blood Loss: 30 mL Procedure Details and Comments: Informed consent was obtained after discussion with the patient regarding indication, risks, benefits, and alternatives. Patient was brought to the cardiac catheterization lab, placed on the table, prepped and draped in usual sterile fashion. Timeout was performed. Dr. Rubio was graciously present and assisted for the majority of the procedure. IV sedation given including fentanyl and midazolam. See MAR for details. 1% lidocaine given subcutaneously for local anesthesia. Access was obtained using ultrasound guidance, micro-puncture needle and modified Seldinger technique. Access obtained on LFA; iliofemoral angio showed good arteriotomy site suitable for closure device. 7Fr sheath advanced. Perclose suture deployed for preclose technique. Access obtained on LFV, 7 Fr. IV heparin for therapeutic AC, ACT monitored 250-350. Aspirin and ticagrelor given PO. We first performed RHC to see if we might be able to perform PCI without Impella support, especially his RHC numbers were basically normal in recent procedure. 7 Fr Hasty used for RHC. Again, his RHC numbers were very good, normal biventricular pressures (assuming PA diastolic pressure), normal cardiac index, no pulmonary hypertension. Therefore we first tried to do RCA PCI without mechanical circulatory support. A 7 Fr AL 0.75 guide used to cannulate RCA. Initial angiogram redemonstrated tandem severe proximal stenosis, and PDA total occlusion. We wanted to see if PDA is chronic, or subacute, hence we tried to wire it with Whisper wire with Corsair XS microcatheter support. The Whisper wire buckled upon engaging the lesion, suggestive of this being PER ASSESSMENT NURSE. We changed to Quality Inspector 200, which also buckled upon contact with PDA occlusion. Therefore, we concluded PDA was indeed PER ASSESSMENT NURSE, and recanalization will require heavy wire which carries higher risk which is not worthwhile given PDA is well collateralized. We then focused on the proximal RCA lesions. The Quality Inspector 200 was switched to Moda2Ride for support and delivery. IVUS performed with Hire-Intelligence IVUS. This showed 360 deg of calcium in the proximal lesions. Distal landing chosen in proximal vessel, diameter 4 mm. Proximal landing chosen in proximal vessel, diameter 4-4.5 mm. We tried to deliver a 3.5 mm Waterloo cutting balloon but were unable to. Therefore, serial angioplasty with 2.75 mm NC Trek and 3.5 x 20 mm NC Trek Aaron, both expanded quite well. Based on IVUS, 4 x 32 mm Synergy Megatron positioned in proximal RCA, deployed at 16 mm, which expanded well. We tried to repeat IVUS but were unable to deliver catheter. Postdilation with 4 x 15 mm NC Trek Aaron. Final angiogram with 0% residual stenosis, TIMI3 flow, no dissection, no no-reflow. AL guide removed. Of note, we have been monitoring his PA pressure during the procedure. While the patient's BP remained 80-90s systolic during the intervention, his mean PA pressure drifted up from 20s (baseline) to 40s during intervention. This suggests that his LV filling pressure is notably increasing despite just RCA intervention; it is likely he might not tolerate LAD/LM intervention without MCS. We then proceed with Impella support. Over Impella stiff wire, the LFA 7 Fr sheath exchanged to 14 Fr Impella sheath after serial dilation. LV entered with pigtail catheter. Impella 0.018 in [place] Plus wire inserted to LV, and pigtail removed. The Impella CP catheter, readied on back table, advanced to LV and started. Single stick technique used to introduce 7 Fr property accountant sheath into the 14 Fr sheath. 7 Fr XB4 guide used to cannulate LCA. Initial angiogram redemonstrated 50% LM stenosis and 60% mid LAD stenosis at the level of major diagonal (previously iFR ischemic). Workhorse wires used to wire LAD and major diagonal. IVUS performed down LM and LAD. This showed somewhat calcified plaque with about 180 degree of calcium. Distal landing in mid LAD, diameter 2.75 mm. Proximal landing in proximal LAD, diameter 3.5 mm. Predilation with 2.75 x 15 mm NC Trek Aaron at 20 niya, which expanded well. Based on IVUS, 2.75 x 28 mm Xience Skypoint positioned in mid LAD, alongside 2 x 30 mm Emerge in diagonal. Using jailed balloon technique, mid LAD stent deployed at 16 niya, followed by diagonal balloon inflated to 6 niya. The diagonal balloon deflated and removed, then LAD stent balloon withdrawn slightly and reinflated to 18 niya. Proximal dilation with 3.5 x 15 mm Trek at 14 niya. IVUS now showed good stent seating, distally in a plaque free zone with good expansion, but proximal stent ended in a plaque hence we will need to extent the stent proximally. Repeat angio showed pinching of diagonal. DFR performed with Comet wire, which was normalized in ascending aorta with guide withdrawn, then advanced to diagonal. DFR was 0.87, ischemic. Hence we need to angioplasty diagonal ostium. A Whisper wire used to enter diagonal, and jailed Minamo wire removed. 1.2 mm Emerge used to open strut. 2 x 12 mm and 2.75 x 12 mm NC Trek Aaron placed in diagonal and LAD respectively. Using quyd-irli-oyin sequence, balloons were inflated to 12 niya individually, and then 10 niya in kissing inflation. Angiogram now showed improved diagonal ostium, no longer pinched. We then moved on to LM/LAD/LCX bifurcation. Whisper repositioned to LCX. A 3.5 x 20 mm NC Trek Aaron used to predilated proximal LAD at 20 niya, expanding well. LM was prepared with 3.5 mm Waterloo cutting balloon which expanded well. Of note during LM inflation, patient's arterial pressure waveform did flatline transiently, indicating Impella support was needed. More predilation with 4 x 15 m NC Trek Aaron which yielded well. A 3.5 x 38 mm Xience Skypoint positioned from LM into proximal LAD, overlapping with the previous stent. A 2.25 x 20 mm Emerge positioned from LM into LCX. Again, using jailed balloon technique, LM stent deployed at 18 niya, the LCX balloon inflated to 8 niya then removed. LM stent balloon reinflated to 18 niya. Proximal optimization with 4.5 x 12 mm Emerge. Repeat IVUS showed good stent seating, expansion, apposition, no edge dissection. The very proximal part in the LM was somewhat mal-apposed. So we used 5 x 8 mm Emerge to dilate at 10 niya. Final angio showed 10% residual (LM), TIMI3 flow, no dissection, no no-reflow. Coronary wires removed. XB guide removed over J wire. Cattle Trader sheath removed. Impella CP weaned to P2. Repeat PA sat showed good cardiac output and cardiac index. Impella CP removed via 14 Fr sheath. 14 Fr LFA sheath removed, perclose cinched over a micropuncture sheath, repeat femoral angio taken, satisfactory for closure. 6 Fr AngioSeal for final hemostasis. LFV 7 Fr sheath removed, hemostasis with Perclose followed by 6 Fr AngioSeal. Patient transported to prepost area in stable condition. Referring team and family member updated. Lesions: Proximal RCA. Tandem 80% stenosis pre, 0% post. 32 mm pre and post. TIMI3 pre and post. ACC/AHA C. Proximal/mid LAD. 60% pre, 0% post. 28 mm pre and post. TIMI3 pre and post. ACC/AHA C. LM/proximal LAD. 50% pre, 10% post. 38 mm pre and post. TIMI3 pre and post. ACC/AHC C. Diagonal. 0% pre and post. 10 mm pre and post. TIMI3 pre and post. ACC/AHA A. PTCA only as part of bifurcation technique. LCX. 0% pre and post. 10 mm pre and post. TIMI3 pre and post. ACC/AHA A. PTCA only as part of bifurcation technique. Coronary Findings Diagnostic Dominance: Right Left Main: Mid LM to Dist LM lesion is 50% stenosed. Left Anterior Descending: The vessel is moderate in size. There is mild diffuse disease throughout the vessel. Prox LAD to Mid LAD lesion is 60% stenosed. Second Diagonal Branch: 0% stenosed 2nd Diag lesion. Not the culprit lesion. ODETTE flow is 3. Lesion length: 10 mm. The lesion is not complex (non high-C). Left Circumflex: The vessel is small to moderate in size. There is moderate diffuse disease throughout the vessel. 0% stenosed Ost Cx to Prox Cx lesion. Not the culprit lesion. ODETTE flow is 3. Lesion length: 10 mm. The lesion is not complex (non high-C). Right Coronary Artery: The vessel was visualized by selective angiography and is moderate to large in size. Prox RCA-1 lesion is 80% stenosed. Prox RCA-2 lesion is 80% stenosed. Mid RCA lesion is 40% stenosed. Acute Marginal Branch: The vessel is small in size. Right Ventricular Branch: The vessel is small in size. Right Posterior Descending Artery: RPDA filled by collaterals from Dist LAD. RPDA lesion is 100% stenosed. Right Posterior Atrioventricular Artery: There is moderate diffuse disease throughout the vessel. First Right Posterolateral Branch: 1st RPL filled by collaterals from Dist LAD. 1st RPL lesion is 100% stenosed. The lesion is chronically occluded. Intervention Mid LM to Dist LM lesion: Angioplasty (Also treats lesions: Prox LAD to Mid LAD): Pre-stent angioplasty was performed using a cutting balloon. Stent (Also treats lesions: Prox LAD to Mid LAD): A [employer] Pharm[employer] Cor Stent XienceSkpt 3.50mm 38mm Rap drug-eluting stent was successfully placed. Angioplasty: Post-stent angioplasty was performed. Post-Intervention Lesion Assessment: The intervention was successful. The guidewire crossed the lesion. Device was deployed. Post-intervention ODETTE flow is 3. Lesion had 38 mm of its length treated. There were no complications. Post-PCI ultrasound (IVUS) was performed. The stent is fully expanded. The stent is fully opposed to the vessel wall. There is a 10% residual stenosis post intervention. Prox LAD to Mid LAD lesion: Angioplasty: Pre-stent angioplasty was performed using a non-compliant balloon. Stent: A Sys Cor Stent XienceSkpt 2.75mm 28mm Rap drug- eluting stent was successfully placed. Angioplasty: Post-stent angioplasty was performed using a non-compliant balloon. Angioplasty (Also treats lesions: Mid LM to Dist LM): Pre-stent angioplasty was performed using a cutting balloon. Stent (Also treats lesions: Mid LM to Dist LM): A Sys Cor Stent XienceSkpt 3.50mm 38mm Rap drug- eluting stent was successfully placed. Post-Intervention Lesion Assessment: The intervention was successful. The guidewire crossed the lesion. Device was deployed. Post-intervention ODETTE flow is 3. Lesion had 28 mm of its length treated. There were no complications. Post-PCI ultrasound (IVUS) was performed. The stent is fully expanded. The stent is fully opposed to the vessel wall. There is a 0% residual stenosis post intervention. 2nd Diag lesion: Angioplasty: Angioplasty independent of stent deployment was performed. Post-Intervention Lesion Assessment: The intervention was successful. The guidewire crossed the lesion. Device was not deployed. Post-intervention ODETTE flow is 3. Lesion had 10 mm of its length treated. There were no complications. There is a 0% residual stenosis post intervention. Ost Cx to Prox Cx lesion: Angioplasty: Angioplasty independent of stent deployment was performed. Post-Intervention Lesion Assessment: The intervention was successful. The guidewire crossed the lesion. Device was not deployed. Post-intervention ODETTE flow is 3. Lesion had 10 mm of its length treated. There were no complications. There is a 0% residual stenosis post intervention. Prox RCA-1 lesion: Angioplasty (Also treats lesions: Prox RCA-2): Pre-stent angioplasty was performed using a non-compliant balloon. Stent (Also treats lesions: Prox RCA-2): A Sys Cor Stent Sng Megatron 4Mm 32Mm drug-eluting stent was successfully placed. Angioplasty (Also treats lesions: Prox RCA-2): Post-stent angioplasty was performed using a non-compliant balloon. Post-Intervention Lesion Assessment: The intervention was successful. The guidewire crossed the lesion. Device was deployed. Post-intervention ODETTE flow is 3. Lesion had 32 mm of its length treated. There were no complications. There is a 0% residual stenosis post intervention. Prox RCA-2 lesion: Angioplasty (Also treats lesions: Prox RCA-1): Pre-stent angioplasty was performed using a non-compliant balloon. Stent (Also treats lesions: Prox RCA-1): A Sys Cor Stent Sng Megatron 4Mm 32Mm drug-eluting stent was successfully placed. Angioplasty (Also treats lesions: Prox RCA-1): Post-stent angioplasty was performed using a non-compliant balloon. Post-Intervention Lesion Assessment: There is a 0% residual stenosis post intervention. Non Coronary Arteries Findings Diagnostic Left Common Femoral: The catheter tip was placed in the left SENIOR EXECUTIVE ASSISTANT artery. The vessel was visualized by selective angiography and is moderately sized. There is mild disease throughout the vessel. Intervention No interventions have been documented. Impella Perclose Perclose suture was delivered in the left femoral artery. Access A sheath (14 Fr) was inserted in the left femoral artery. Impella Device Impella inserted over the wire to the left ventricle. Impella position confirmed and device initiated. Performance level set to auto. Impella weaned. Impella Status Impella removed. Recommendations - Follow maximal guideline directed medical therapy for ischemic cardiomyopathy. - Recommend dual anti platelet therapy for at least 6 months. - Recommend high dose statin therapy and aspirin 81 mg by mouth daily indefinitely. - Consult cardiac rehab. - Plan for lifestyle intervention with diet, exercise, and weight loss. - PDA PER ASSESSMENT NURSE to be medically managed. us Raoul Ga DO CV CARDIAC CATH CUPID PROCS Fi nal Result * ACT LR - POCT ([facility]) (11/17/2024 11:14 AM CDT) Only the most recent of6 resultswithin the time period is included. [facility] ACT LR 280 See result comments sec 11/17/2024 1:16 PM CDT [facility] Blood BLOOD SPECIMEN / Unknown 11/17/2024 11:14 AM CDT 11/17/2024 1:16 PM CDT Narrative [facility] - 11/17/2024 1:16 PM CDT ACT-LR Therapeutics ranges are: Cardiac poultry hatchery laborer = 200-300 seconds Sheath pull = ACT less than 170 seconds EPS lab = 200-240 seconds Sheath pull = ACT less than 140 seconds Radiology : CT/Angio lab = 200-300 seconds Sheath pull = ACT less than 200 seconds Expected range of normal volunteers: ACT-LR = 113-149 seconds Expected range of a Non-heparin patients: ACT-LR = 89-169 seconds From established ranges from the company manual Raoul Ga DO LAB - COAGULATION ORDERABLES F inal Result [facility] [address] [place] [address], [facility] [phone] * VAS Right Arterial Duplex Le (11/16/2024 3:55 PM CDT) Anatomical Region Laterality Modality Lower Extremity Ultrasound 11/16/2024 2:53 PM CDT Narrative Procedure Note Romel Chairez MD - 11/16/2024 us Raoul Ga DO VASCULAR LAB ORDERABLES Edited Result - Final * PT-INR (11/16/2024 2:53 AM CDT) Only the most recent of16 resultswithin the time period is included. PT 14.5 12.1 - 14.8 Seconds 11/16/2024 3:45 AM CDT [facility] INR 1.2 See Comment 11/16/2024 3:45 AM T [facility] Comment:The suggested therap eutic range for standard coumadin (warfarin) therapy is an INR of 2.0-3.0. For high-risk patients (Mechanical Mitral Valve Prosthesis, etc.), the suggested prophylactic therapeutic range is an INR of 2.5-3.5. Blood BLOOD SPECIMEN / Unknown Lab Venipuncture / Unknown 11/16/2024 2:53 AM CDT 11/16/2024 3:18 AM CDT us Lamberto Singh MD LAB - COAGULATION ORDERABLES Final Result [facility] [address] [place] [address], [facility] [phone] * (ABNORMAL) CBC W AUTO DIFFERENTIAL (11/16/2024 2:53 AM CDT) Only the most recent of15 resultswithin the time period is included. WBC 6.8 4.0 - 10.7 x10E9/L 11/16/2024 3:23 AM [facility] RBC Count 3.49(L) 4.30 - 5.80 x10E12/L 11/16/2024 3:23 AM [facility] Hemoglobin 10.3(L) 13.3 - 17.5 g/dL 11/16/2024 3:23 AM [facility] Hematocrit 31.7(L) 38.7 - 51.1 % 11/16/2024 3:23 AM [facility] MCV 90.8 80.0 - 98.0 fL 11/16/2024 3:23 AM [facility] MCH 29.5 26.7 - 33.6 pg 11/16/2024 3:23 AM [facility] MCHC 32.5 31.7 - 36.3 g/dL 11/16/2024 3:23 AM [facility] RDW-CV 15.5(H) 11.3 - 14.8 % 11/16/2024 3:23 AM [facility] Platelet Count 233 150 - 420 x10E9/L 11/16/2024 3:23 AM [facility] MPV 9.6 7.8 - 11.4 fL 11/16/2024 3:23 AM [facility] Neutrophil % 61.7 41.0 - 74.0 % 11/16/2024 3:23 AM [facility] Lymphocyte % 26.1 17.0 - 47.0 % 11/16/2024 3:23 AM T [facility] Monocyte % 10.6 3.0 - 11.0 % 11/16/2024 3:23 AM [facility] Eosinophil % 0.6 0.0 - 7.0 % 11/16/2024 3:23 AM [facility] Basophil % 0.3 0.0 - 1.6 % 11/16/2024 3:23 AM [facility] Immature Granulocytes % 0.7 0.0 - 1.0 % 11/16/2024 3:23 AM [facility] Neutrophil Absolute 4.17 1.60 - 7.50 x10E9/L 11/16/2024 3:23 AM [facility] Lymphocyte Absolute 1.77 1.00 - 4.40 x10E9/L 11/16/2024 3:23 AM [facility] Monocyte Absolute 0.72 0.15 - 1.00 x10E9/L 11/16/2024 3:23 AM [facility] Eosinophil Absolute 0.04 0.00 - 0.60 x10E9/L 11/16/2024 3:23 AM [facility] Basophil Absolute 0.02 0.00 - 0.13 x10E9/L 11/16/2024 3:23 AM [facility] Blood BLOOD SPECIMEN / Unknown Lab Venipuncture / Unknown 11/16/2024 2:53 AM CDT 11/16/2024 3:17 AM CDT us Lamberto Singh MD LAB - HEMATOLOGY ORDERABLES Final Result [facility] [address] [place] [address], [facility] [phone] * (ABNORMAL) COMPREHENSIVE METABOLIC PANEL (11/16/2024 2:53 AM CDT) Only the most recent of15 resultswithin the time period is included. BUN 10 7 - 26 mg/dL 11/16/2024 3:47 AM [facility] Creatinine 0.83 0.71 - 1.16 mg/dL 11/16/2024 3:47 AM [facility] Sodium 133(L) 136 - 145 mmol/L 11/16/2024 3:47 AM [facility] Potassium 4.1 3.5 - 4.5 mmol/L 11/16/2024 3:47 AM [facility] Chloride 102 98 - 107 mmol/L 11/16/2024 3:47 AM [facility] CO2 24 22 - 29 mmol/L 11/16/2024 3:47 AM [facility] Glucose 107(H) 70 - 99 mg/dL 11/16/2024 3:47 AM [facility] Calcium 7.7(L) 8.4 - 10.2 mg/dL 11/16/2024 3:47 AM [facility] Protein Total 4.9(L) 6.0 - 8.3 g/dL 11/16/2024 3:47 AM [facility] Albumin 2.4(L) 3.4 - 5.0 g/dL 11/16/2024 3:47 AM [facility] Bilirubin Total 0.6 0.2 - 1.2 mg/dL 11/16/2024 3:47 AM [facility] Alkaline Phosphatase 114 40 - 150 U/L 11/16/2024 3:47 AM [facility] ALT 66(H) 5 - 55 U/L 11/16/2024 3:47 AM [facility] AST 33 5 - 34 U/L 11/16/2024 3:47 AM [facility] Anion Gap 7 6 - 16 11/16/2024 3:47 AM [facility] BUN/Creatinine Ratio 12 7 - 23 11/16/2024 3:47 AM [facility] Osmolality Calculated 276 275 - 295 mOsm/kg 11/16/2024 3:47 AM [facility] Albumin/Globulin Ratio 1.0(L) 1.1 - 2.3 11/16/2024 3:47 AM [facility] eGFR by CKD-EPI >90 >=90 mL/min/1.7 3 m2 11/16/2024 3:47 AM [facility] Comment:Estimated Glomerular Filtration Rate (eGFR) calculated using the CKD-EPI Creatinine Equation (2020), per the National Kidney Foundation and [place] [employer]ph[employer] recommendations. Blood BLOOD SPECIMEN / Unknown Lab Venipuncture / Unknown 11/16/2024 2:53 AM CDT 11/16/2024 3:12 AM CDT Lamberto Singh MD LAB - CHEMISTRY ORDERABLES F inal Result Performing Organization Address City/[facility] [address]/ZIP Co de Phone Number [address] [address], [place] [phone] * PHOSPHORUS BLOOD (11/16/2024 2:53 AM CDT) Only the most recent of13 resultswithin the time period is included. Phosphorus 3.4 2.8 - 5.1 mg/dL 11/16/2024 3:47 AM CDT [facility] Blood BLOOD SPECIMEN / Unknown Lab Venipuncture / Unknown 11/16/2024 2:53 AM CDT 11/16/2024 3:12 AM CDT Lamberto Singh MD LAB - CHEMISTRY ORDERABLES F inal Result Performing Organization Address [facility] [address]/[facility] Co de Phone Number [address] [address], [place] [phone] * MRI Cardiac Study Wwo Contrast (11/14/2024 5:14 PM CDT) Anatomical Region Laterality Modality Chest Magnetic Resonan ce 11/15/2024 11:0 8 AM CDT Impressions 11/16/2024 7:03 AM CDT Impression: PENDING MEASUREMENTS There is cardiomegaly with increased left ventricular volume. There is diffuse global hypokinesia and lateral wall is severely hypokinetic. There is no evidence of scar or necrosis or findings to suggest myocardial inflammation. No evidence of perfusion defects to suggest ischemic changes. Findings are most suggestive of dilated cardiomyopathy. Findings of mild to moderate aortic regurgitation and mild mitral regurgitation as well as small patent foramen ovale. Findings suggestive of acute pulmonary edema. > Dictated by Froilan Doss MD (Escalation Engineer), 11/15/2024 11:17 AM. > Dictated by Escalation Engineer I, Reji Garrett MD have personally reviewed and interpreted this examination/study. > Interpreting Provider: Reji Garrett MD on 11/16/2024 7:03 AM Narrative 11/16/2024 7:03 AM CDT PROCEDURE: MRI CARDIAC STUDY WWO CONTRAST, DATE/TIME OF EXAM: 11/14/2024 5:30 PM, LOCATION [facility] INDICATION: I50.20: Heart failure with reduced ejection fraction (HCC) ADDITIONAL CLINICAL INFORMATION: Ordering Provider Reason For Exam: new HF, possible CABG vs PCI COMPARISON: CT chest 11/08/2024 TECHNIQUE: MRI of the heart was performed prior to and following the uneventful administration of [' intravenous gadolinium contrast according to a custom protocol monitored by the radiologist. Contrast: 28 mL of MultiHance was used as intravenous contrast. No procedure related complications seen. HR: 86 bpm, Height: 66 in, Weight: 152 lb, BSA: 1.78 m2 Findings: PENDING MEASUREMENTS MORPHOLOGY AND FUNCTION: *Left ventricular wall thickness: Septum: 11 mm; anterior wall: 8 mm; lateral wall: 7 mm and inferior wall 7 mm (image 1, series 12). *Cardiac size: Cardiomegaly, dilated left ventricle. *Left ventricular mass : Normal, measured 192 g.(Normal range 118-238 g). *Wall motion:There is diffuse global hypokinesia and the lateral wall of the left ventricle is severely hypokinetic. *Left ventricular volume and function: Ejection fraction: 33% End-diastolic volume: 273 mL (corrected 153 mL) End-systolic volume: 181 mL (corrected 102 mL) Stroke-volume: 92 mL (corrected 52 mL) *Right ventricular volume and function: Ejection fraction 12% End-diastolic volume 185 mL (corrected 104 mL) End-systolic volume 162 mL (corrected 91 mL) Stroke-volume 23 mL (corrected 13 mL) *Aortic valve parameters: Peak velocity 149 cm/s Calculated gradient according to the modified Bernoulli equation 9 mmHg Forward volume 70 mL Reverse volume 8 mL Net forward volume 62 mL Regurgitant fraction is 11.7%. *Pulmonic valve parameters: Peak velocity 64 cm/s Calculated gradient according to the modified Bernoulli equation 1.6 mmHg Forward volume 44 mL Reverse volume 1 mL Net forward volume 43 mL *LVOT and aortic root:Unremarkable. *Atrium: Left atrium: Normal. and right atrium: Normal. Suggestion of small patent foramen ovale. TISSUE CHARACTERIZATION: *Edema, inflammation and T2 mapping: Normal.. *T1 mapping: Normal.. *T2*mapping: Not performed.. *Perfusion: Perfusion images were obtained and no perfusion defects are identified. *Delayed enhancement: No evidence of myocardial LGE. Morphology: A left aortic arch is present. The visible aorta and pulmonary artery are normal in course and caliber. No pericardial effusion is seen. Valves: Aortic valve: Mild to moderate degree of aortic regurgitation is seen; mitral valve: Mild mitral regurgitation seen. Noncardiac findings: There are small volume bilateral layering pleural effusions. There is smooth septal thickening consistent with pulmonary edema. There is no mediastinal lymphadenopathy. Procedure Note Reji Garrett MD - 11/16/2024 PROCEDURE: MRI CARDIAC STUDY WWO CONTRAST, DATE/TIME OF EXAM:11/14/2024 5:30 PM, LOCATION [facility] INDICATION: I50.20: Heart failure with reduced ejection fraction (HCC) ADDITIONAL CLINICAL INFORMATION: Ordering Provider Reason For Exam: new HF, possible CABG vs PCI COMPARISON: CT chest 11/08/2024 TECHNIQUE: MRI of the heart was performed prior to and following the uneventful administration of [' intravenous gadolinium contrastaccording to a custom protocol monitored by the radiologist. Contrast: 28 mL of MultiHance was used as intravenous contrast. No procedure related complications seen. HR: 86 bpm, Height: 66 in, Weight: 152 lb, BSA: 1.78 m2 Findings: PENDING MEASUREMENTS MORPHOLOGY AND FUNCTION: *Left ventricular wall thickness: Septum: 11 mm; anterior wall: 8 mm; lateral wall: 7 mm and inferior wall 7 mm (image 1, series 12). *Cardiac size: Cardiomegaly, dilated left ventricle. *Left ventricular mass : Normal, measured 192 g.(Normal range 118-238g). *Wall motion:There is diffuse global hypokinesia and the lateral wall of the left ventricle is severely hypokinetic. *Left ventricular volume and function: Ejection fraction: 33% End-diastolic volume: 273 mL (corrected 153 mL) End-systolic volume: 181 mL (corrected 102 mL) Stroke-volume: 92 mL (corrected 52 mL) *Right ventricular volume and function: Ejection fraction 12% End-diastolic volume 185 mL (corrected 104 mL) End-systolic volume 162 mL (corrected 91 mL) Stroke-volume 23 mL (corrected 13 mL) *Aortic valve parameters: Peak velocity 149 cm/s Calculated gradient according to the modified Bernoulli equation 9 mmHg Forward volume 70 mL Reverse volume 8 mL Net forward volume 62 mL Regurgitant fraction is 11.7%. *Pulmonic valve parameters: Peak velocity 64 cm/s Calculated gradient according to the modified Bernoulliequation 1.6 mmHg Forward volume 44 mL Reverse volume 1 mL Net forward volume 43 mL *LVOT and aortic root:Unremarkable. *Atrium: Left atrium: Normal. and right atrium: Normal. Suggestion ofsmall patent foramen ovale. TISSUE CHARACTERIZATION: *Edema, inflammation and T2 mapping: Normal.. *T1 mapping: Normal.. *T2*mapping: Not performed.. *Perfusion: Perfusion images were obtained and no perfusion defects are identified. *Delayed enhancement: No evidence of myocardial LGE. Morphology: A left aortic arch is present. The visible aorta andpulmonary artery are normal in course and caliber. No pericardial effusion isseen. Valves: Aortic valve: Mild to moderate degree of aortic regurgitation is seen; mitral valve: Mild mitral regurgitation seen. Noncardiac findings: There are small volume bilateral layering pleural effusions. There is smooth septal thickening consistent with pulmonary edema. There is no mediastinal lymphadenopathy. Impression: PENDING MEASUREMENTS There is cardiomegaly with increased left ventricular volume. There is diffuse global hypokinesia and lateral wall is severely hypokinetic.There is no evidence of scar or necrosis or findings to suggest myocardial inflammation. No evidence of perfusion defects to suggest ischemicchanges. Findings are most suggestive of dilated cardiomyopathy. Findings of mild to moderate aortic regurgitation and mild mitral regurgitation as well as small patent foramen ovale. Findings suggestive of acute pulmonary edema. > Dictated by Froilan Doss MD (Escalation Engineer), 11/15/2024 11:17 AM. > Dictated by Escalation Engineer I, Reji Garrett MD have personally reviewed and interpreted this examination/study. > Interpreting Provider: Reji Garrett MD on 57:03 AM us Joel Cao III, MD MR ORDERABLES Final R esult * SODIUM URINE RANDOM (11/11/2024 12:35 PM CDT) Only the most recent of2 resultswithin the time period is included. Sodium Urine 95 Not Established mmol/L 11/11/2024 1:23 PM [facility] Urine URINE SPECIMEN OBTAINED BY CLEAN CATCH PROCEDURE / Unknown Collection / Unknown 11/11/2024 12:35 PM CDT 11/11/2024 12:46 PM CDT us Joel Cao III, MD LAB - URINE CHEMISTRY O RDERABLES Final Result [facility] [address] [place] [address], [facility] [phone] * (ABNORMAL) DIFFERENTIAL MANUAL (11/10/2024 2:41 AM CDT) Only the most recent of5 resultswithin the time period is included. Neutrophil % 88(H) 41 - 74 % 11/10/2024 4:28 AM [facility] Lymphocyte % 6(L) 17 - 47 % 11/10/2024 4:28 AM [facility] Monocyte % 4 3 - 11 % 11/10/2024 4:28 AM [facility] Eosinophil % 1 0 - 7 % 11/10/2024 4:28 AM [facility] Metamyelocyte % 1(H) 0% % 4:28 AM [facility] Neutrophil Absolute 9.42(H) 1.60 - 7.50 x10E9/L 11/10/2024 4:28 AM [facility] Lymphocyte Absolute 0.64(L) 1.00 - 4.40 x10E9/L 11/10/2024 4:28 AM [facility] Monocyte Absolute 0.43 0.15 - 1.00 x10E9/L 11/10/2024 4:28 AM [facility] Eosinophil Absolute 0.11 0.00 - 0.60 x10E9/L 11/10/2024 4:28 AM CDT [facility] RBC Morphology REVIEWED 11/10/2024 4:28 AM CDT [facility] Schistocytes FEW(A) (none) 11/10/2024 4:28 AM CDT [facility] Blood BLOOD SPECIMEN / Unknown Lab Venipuncture / Unknown 11/10/2024 2:41 AM CDT 11/10/2024 3:55 AM CDT us Lamberto Singh MD LAB - HEMATOLOGY ORDERABLES Final Result [facility] [address] [place] [address], [facility] [phone] * VAS Carotid Duplex Bilateral (11/08/2024 1:01 PM CDT) Anatomical Region Laterality Modality Neck Ultrasound 11/08/2024 11:5 7 AM CDT Narrative Procedure Note Romel Chairez MD - 11/09/2024 Juarez Borja PA-C VASCULAR LAB ORDERABLES Aron fátima Result - Final * VAS Bilateral Venous Mapping (11/08/2024 12:59 PM CDT) Anatomical Region Laterality Modality Upper Extremity, Lower Extremity Ultrasound 11/08/2024 12:0 7 PM CDT Narrative Procedure Note Romel Chairez MD - 11/09/2024 Juarez Borja PA-C VASCULAR LAB ORDERABLES Aron fátima Result - Final * Simple PFT (11/08/2024 9:37 AM CDT) Impressions Linda Tran DO - 11/08/2024 9:37 AM CDT .[facility] DEPARTMENT OF PULMONARY, CRITICAL CARE, AND SLEEP MEDICINE SPIROMETRY TEST Please see technologist's comments mentioned in the report. INTERPRETATION: SPIROMETRY: FVC: decreased. FEV1: decreased. FEV1/FVC ratio is normal. Flow volume shows variation in configuration likely due to technique IMPRESSION: 1. Non-specific ventilatory limitation. Full PFT has to be done to comment on Lung Volumes. 2. There is no previous study available for comparison. Andres Turner MD Pulmonary & Critical Care Fellow Division of Pulmonary, Critical Care, and Sleep Medicine [facility] I have personally reviewed the fellow's interpretation of the test and made any necessary changes when needed. Linda Tran DO [employer] former Division of Pulmonary, Critical Care and Sleep Medicine [facility] Narrative Linda Tran DO - 11/08/2024 9:37 AM CDT Linda Tran DO 11/12/2024 3:08 PM Procedure Note Andres Turner MD - 11/08/2024 9:37 AM CDT Images from the original note were not included. us Juarez Borja PA-C RESPIRATORY THERAPY ORDERAB LES Edited Result - Final * CT Chest Wo Contrast (11/08/2024 8:47 AM CDT) Anatomical Region Laterality Modality Chest Computed Tomogra phy 11/08/2024 9:01 AM CDT Impressions 11/08/2024 10:51 PM CDT Impression: 1.Mild atherosclerotic calcification of the thoracic aorta as described above. No significant calcification of the aortic root or ascending aorta. 2.Paraseptal emphysema at the bilateral lungs. Groundglass masses and consolidations within the bilateral lungs predominantly within a peripheral distribution can be seen with chronic eosinophilic pneumonia or organizing pneumonia, however cannot rule out multifocal infection in the acute setting. 3.Cardiomegaly and triple vessel coronary artery disease. 4.Small volume bilateral pleural effusions. 5.An indeterminate left exophytic renal lesion is present. Can consider CT renal mass protocol for further evaluation if not previously explored. > Dictated by Cinthia Yan Dr, MD (resident manager). IZan MD have personally reviewed and interpreted this examination/study. > Interpreting Provider: Zan Cortes MD on 11/08/2024 10:51 PM Narrative 11/08/2024 10:51 PM CDT PROCEDURE: CT CHEST WO CONTRAST, DATE/TIME OF EXAM: 11/08/2024 8:47 AM, LOCATION [facility] INDICATION: I50.20: Heart failure with reduced ejection fraction (HCC) ADDITIONAL CLINICAL INFORMATION: Ordering Provider Reason For Exam: Preop CABG Technologist Note: Additional: COMPARISON: None. TECHNIQUE: CT of the chest was performed without contrast according to standard protocol. Findings: Evaluation of visceral and vascular structures is degraded due to lack of intravenous contrast administration. Lower Neck and Axillae: Normal. Lungs: Paraseptal emphysema at the bilateral lungs. Groundglass masses and consolidations within the bilateral lungs predominantly within a peripheral distribution can be seen with chronic eosinophilic pneumonia or organizing pneumonia, however cannot rule out multifocal infection in the acute setting. No suspicious pulmonary nodules are identified. Small volume bilateral pleural effusions. No pneumothorax. Heart and Pericardium: Borderline cardiomegaly. Triple vessel coronary artery disease. Mediastinum and Yee: Mildly prominent subaortic lymph nodes measuring less than 1 cm in short axis. Thoracic Vasculature: Minimal atherosclerotic calcification of the aortic arch. Mild atherosclerotic calcification of the descending thoracic aorta as well as the visible abdominal and pelvic arterial vasculature. No significant calcification of the aortic root or ascending aorta. Bones and Chest Wall: Bone windows demonstrate no suspicious lytic or blastic lesions. The visible osseous structures are intact. Degenerative changes are seen in the spine. Upper Abdomen: Mild perihepatic and mesenteric ascites consistent with patient's known history of cirrhosis. A few colonic diverticula are present. An exophytic left renal lesion measures 2.7 x 3.1 cm incidental density approximately 30 Hounsfield units, indeterminate. Procedure Note Sasha Cortes MD - 11/08/2024 PROCEDURE: CT CHEST WO CONTRAST, DATE/TIME OF EXAM: 11/08/2024 8:47 AM, LOCATION [facility] INDICATION: I50.20: Heart failure with reduced ejection fraction (HCC) ADDITIONAL CLINICAL INFORMATION: Ordering Provider Reason For Exam: Preop CABG Technologist Note: Additional: COMPARISON: None. TECHNIQUE: CT of the chest was performed without contrast according to standard protocol. Findings: Evaluation of visceral and vascular structures is degraded due to lackof intravenous contrast administration. Lower Neck and Axillae: Normal. Lungs: Paraseptal emphysema at the bilateral lungs. Groundglass masses and consolidations within the bilateral lungs predominantly within aperipheral distribution can be seen with chronic eosinophilic pneumonia ororganizing pneumonia, however cannot rule out multifocal infection in the acute setting. No suspicious pulmonary nodules are identified. Small volume bilateral pleural effusions. No pneumothorax. Heart and Pericardium: Borderline cardiomegaly. Triple vessel coronary artery disease. Mediastinum and Yee: Mildly prominent subaortic lymph nodes measuring less than 1 cm in short axis. Thoracic Vasculature: Minimal atherosclerotic calcification of the aortic arch. Mild atherosclerotic calcification of the descending thoracic aorta as wellas the visible abdominal and pelvic arterial vasculature. No significant calcification of the aortic root or ascending aorta. Bones and Chest Wall: Bone windows demonstrate no suspicious lytic or blastic lesions. The visible osseous structures are intact. Degenerative changes are seen inthe spine. Upper Abdomen: Mild perihepatic and mesenteric ascites consistent with patient's known history of cirrhosis. A few colonic diverticula are present. Anexophytic left renal lesion measures 2.7 x 3.1 cm incidental density [id number] Hounsfield units, indeterminate. Impression: 1.Mild atherosclerotic calcification of the thoracic aorta as described above. No significant calcification of the aortic root or ascendingaorta. 2.Paraseptal emphysema at the bilateral lungs. Groundglass masses and consolidations within the bilateral lungs predominantly within aperipheral distribution can be seen with chronic eosinophilic pneumonia ororganizing pneumonia, however cannot rule out multifocal infection in the acute setting. 3.Cardiomegaly and triple vessel coronary artery disease. 4.Small volume bilateral pleural effusions. 5.An indeterminate left exophytic renal lesion is present. Can considerCT renal mass protocol for further evaluation if not previously explored. > Dictated by Cinthia Yan Dr, MD (resident manager). I, Damien. Spring Cortes MD have personally reviewed and interpreted this examination/study. > Interpreting Provider: Zan Cortes MD on 11/08/2024 10:51 PM Juarez Borja PA-C CT ORDERABLES Final Resul t * CALCIUM URINE RANDOM (11/04/2024 4:26 PM CDT) Calcium Random Urine 8.2 Not Established mg/dL 11/04/2024 5:00 PM CDT [facility] Urine URINE SPECIMEN OBTAINED BY CLEAN CATCH PROCEDURE / Unknown Collection / Unknown 11/04/2024 4:26 PM CDT 11/04/2024 4:34 PM CDT us Lamberto Singh MD LAB - URINE CHEMISTRY ORDERA BLES Final Result Performing Organization Address [facility] [address]/ZIP Co de Phone Number [address] [address], [facility] [phone] * HIV-1 HIV-2 ANTIBODY + HIV P24 AG PANEL (11/04/2024 1:03 PM CDT) Pathologist [facility] HIV Antigen/Antibod y 1 & 2 Non-reacti ve Non-react palma 11/05/2024 11:10 AM CDT [facility] Comment:No Laboratory eviden ce of HIV infection. Blood BLOOD SPECIMEN / Unknown Venipuncture / Unknown 11/04/2024 1:03 PM CDT 11/04/2024 1:15 PM CDT us Lamberto Singh MD LAB - CHEMISTRY ORDERABLES F inal Result Performing Organization Address [facility] [address]/[facility] Co de Phone Number [address] [address], [facility] [phone] * (ABNORMAL) IRON + TRANSFERRIN PANEL (11/04/2024 1:03 PM CDT) Iron 27(L) 50 - 175 ug/dL 11/04/2024 2:08 PM CDT [facility] Transferrin 173(L) 174 - 382 mg/dL 11/04/2024 2:08 PM CDT [facility] Transferrin Saturation % 12(L) 16 - 50 % 11/04/2024 2:08 PM CDT [facility] TIBC Calculated 216(L) 240 - 450 ug/dL 11/04/2024 2:08 PM CDT [facility] Blood BLOOD SPECIMEN / Unknown Venipuncture / Unknown 11/04/2024 1:03 PM CDT 11/04/2024 1:15 PM CDT Lamberto Singh MD LAB - CHEMISTRY ORDERABLES F inal Result [address] [address], [facility] [phone] * LIVER KIDNEY MICROSOME - 1 ANTIBODY IGG (11/03/2024 8:40 PM CDT) Liver-Kidney Microsomal Antibody 0.8 0.0 - 24.9 U 11/08/2024 8:14 PM CDT [employer] ([facility]) Comment: REFERENCE INTERVAL: Liver-Kidney Microsome-1 Antibody, IgG by ARLINE 0.0 - 20.0 U .............. Negative 20.1 - 24.9 U ............. Equivocal 25.0 U or Greater ......... Positive A positive result indicates the presence of IgG antibodies to recombinant human P450 2D6 and suggests the possibility of autoimmune hepatitis, type 2. A negative LKM-1 does not rule out the presence of autoimmune hepatitis, type 2. Performed By: [employer] [address] [place] [address] Literary Agent: Antonio Serrano MD, PhD CLIA Number: [id number] Blood BLOOD SPECIMEN / Unknown Venipuncture / Unknown 11/03/2024 8:40 PM CDT 11/03/2024 8:44 PM CDT us Lamberto Singh MD LAB - SEROLOGY ORDERABLES Fi nal Result [employer] [facility]) [address] * (ABNORMAL) LHZRQ-9-SKERPHWYMES BLOOD PHENOTYPING PANEL (11/03/2024 8:40 PM CDT) Kqjit-6-Ivoboiecm in Phenotype Contam 11/09/2024 5:54 PM CDT [employer] ([facility]) Comment: Unable to determine the dykwj-7-nukamtgxmdp phenotype of this patient. The sample appears to have more than two etrfv-9-ezjtlidcemg variants. Because all individuals have only two catcb-6-hzcxiddqurk alleles, the presence of more than two nuwun-4-bnmrifjyfpx variants is unexpected. This suggests that the patient has been recently transfused or has received therapeutic agents derived from human plasma. If repeat testing is necessary it is recommended that a sample be collected 21 days following the last transfusion or after discontinuing treatment with therapeutics derived from human plasma. Performed By: [employer] [address] [place] [address] Literary Agent: Antonio Serrano MD, PhD CLIA Number: [id number] Oemwr-3-Rctdnlmcp in 254(H) 90 - 200 mg/dL 11/09/2024 5:54 PM CDT [facility] [employer] ([facility]) Comment:To convert to umol/L , multiply mg/dL by 0.185 Blood BLOOD SPECIMEN / Unknown Venipuncture / Unknown 11/03/2024 8:40 PM CDT 11/03/2024 8:44 PM CDT Lamberto Singh MD LAB - CHEMISTRY ORDERABLES F inal Result [facility]) [address] [place] [address], [facility] * MEREDITH BLOOD SCREEN W/REFLEX TITER (11/03/2024 8:40 PM CDT) MEREDITH IgG None Detected None Detected 11/08/2024 5:43 PM CDT [employer] ([facility]) Comment: No Anti-Nuclear Antibodies (MEREDITH) detected by ARLINE. No further testing will be performed. If suspicion of connective tissue disease is strong and MEREDITH ARLINE is negative, consider testing for MEREDITH by IFA ([id number]). INTERPRETIVE INFORMATION: Anti-Nuclear Antibodies (MEREDITH), IgG by ARLINE Antinuclear Antibodies (MEREDITH), IgG by ARLINE: MEREDITH specimens are screened using enzyme-linked immunosorbent assay (ARLINE) methodology. All ARLINE results reported as Detected are further tested by indirect fluorescent assay (IFA) using HEp-2 substrate with an IgG-specific conjugate. The MEREDITH ARLINE screen is designed to detect antibodies against dsDNA, histones, SS-A (Ro), SS-B (La), Souza, Souza/HEEL WHEELER, Scl-70, Roxana-1, centromeric proteins, other antigens extracted from the HEp-2 cell nucleus. MEREDITH ARLINE assays have been reported to have lower sensitivities than MEREDITH IFA for systemic autoimmune rheumatic diseases (SARD). Negative results do not necessarily rule out SARD. Performed By: [employer] [address] [place] [address] Literary Agent: Antonio Serrano MD, PhD CLIA Number: [id number] Blood BLOOD SPECIMEN / Unknown Venipuncture / Unknown 11/03/2024 8:40 PM CDT 11/03/2024 8:44 PM CDT Lamberto Singh MD LAB - CHEMISTRY ORDERABLES F inal Result [facility] [employer] [facility] [address] [place] [address], [facility] * MPO/NV 3 AUTOANTIBODIES PANEL (11/03/2024 6:01 PM CDT) Serine Proteinase 3 IgG 3 0 - 19 AU/mL 11/09/2024 4:53 AM CDT [facility] [employer] ([facility]) Comment: INTERPRETIVE INFORMATION: Serine Proteinase 3, IgG 19 AU/mL or Less ........ Negative 20-25 AU/mL ............. Equivocal 26 AU/mL or Greater ..... Positive Approximately 85% of patients with a C-ANCA pattern by IFA have antibodies specific for PR3. Performed By: [employer] [address] [place] [address] Literary Agent: Antonio Serrano MD, PhD CLIA Number: [id number] Myeloperoxidase Antibody 0 0 - 19 AU/mL 11/09/2024 4:53 AM CDT [employer] ([facility]) Comment: INTERPRETIVE INFORMATION: Myeloperoxidase Abs, IgG 19 AU/mL or Less ......... Negative 20-25 AU/mL .............. Equivocal 26 AU/mL or Greater ...... Positive Approximately 90% of patients with a P-ANCA pattern by IFA have antibodies specific for MPO. Blood BLOOD SPECIMEN / Unknown Venipuncture / Unknown 11/03/2024 6:01 PM CDT 11/03/2024 6:09 PM CDT Lamberto Singh MD LAB - CHEMISTRY ORDERABLES F inal Result Performing Organization Address City/[facility] [address]/ZIP Co de Phone Number [address] * (ABNORMAL) HEMOGLOBIN A1C (11/03/2024 8:00 AM CDT) Hemoglobin A1c 6.0(H) <=5.6 % 11/03/2024 9:19 AM CDT [facility] Estimated Average Glucose 126 mg/dL 11/03/2024 9:19 AM CDT [facility] Comment: HbA1c Interpretation: Normal : < 5.7% Pre-diabetes: 5.7-6.4% Diabetes: Equal to or greater than 6.5% Test results diagnostic of diabetes should be repeated for confirmation. Treatment target values recommended by ADA and other clinical organizations should be used to evaluate metabolic control in patients. Reference: [place] [employer], Standards of Care in Diabetes -2020 In patients 70 years and older consider HbA1c target range of 7.0-7.5% (Reference: Kvng Bloom et al. JAMDA. 2012) The Sebia assay for the measurement of HbA1c is a National Glycohemoglobin Standardization Program (NGSP) certified method. Blood BLOOD SPECIMEN / Unknown Venipuncture / Unknown 11/03/2024 8:00 AM CDT 11/03/2024 8:12 AM CDT us Lamberto Singh MD LAB - CHEMISTRY ORDERABLES F inal Result [facility] [address] [place] [address], [facility] [phone] * TSH (11/03/2024 8:00 AM CDT) TSH 1.267 0.350 - 4.940 uIU/mL 11/03/2024 9:13 AM CDT [facility] Blood BLOOD SPECIMEN / Unknown Venipuncture / Unknown 11/03/2024 8:00 AM CDT 11/03/2024 8:12 AM CDT Lamberto Singh MD LAB - CHEMISTRY ORDERABLES F inal Result Performing Organization Address City/[facility] [address]/ZIP Co de Phone Number [address] [address], [facility] [phone] * (ABNORMAL) FERRITIN (11/03/2024 8:00 AM CDT) Ferritin 1,594(H) 22 - 275 ng/mL 11/03/2024 9:48 AM [facility] Comment:Result obtained by glo hammond. Blood BLOOD SPECIMEN / Unknown Venipuncture / Unknown 11/03/2024 8:00 AM CDT 11/03/2024 8:40 AM CDT Lamberto Singh MD LAB - CHEMISTRY ORDERABLES F inal Result Performing Organization Address City/[facility] [address]/ZIP Co de Phone Number [address] [address], [facility] [phone] * (ABNORMAL) LIPID PROFILE (11/03/2024 8:00 AM CDT) Cholesterol Total 102 <200 mg/dL 11/03/2024 8:55 AM [facility] HDL 5(L) >40 mg/dL 11/03/2024 8:55 AM [facility] Comment: ATP III Classification of HDL Cholesterol: <40 mg/dL: Considered a major risk factor. >60 mg/dL: Considered a negative risk factor. LDL Calculated 62 <100 mg/dL 11/03/2024 8:55 AM [facility] Comment: ATP III Classification of LDL Cholesterol: <100 mg/dL: Optimal 100 - 129 mg/dL: Near Optimal/Above Optimal 130 - 159 mg/dL: Borderline High 160 - 189 mg/dL: High >190 mg/dL: Very High LDL is calculated using the Friedewald equation. Triglycerides 174(H) <150 mg/dL 11/03/2024 8:55 AM CDT [facility] Comment: ATP III Classification of Triglycerides: <150 mg/dL: Normal 150 - 199 mg/dL: Borderline High 200 - 400 mg/dL: High >500 mg/dL: Very High Blood BLOOD SPECIMEN / Unknown Venipuncture / Unknown 11/03/2024 8:00 AM CDT 11/03/2024 8:12 AM CDT Lamberto Singh MD LAB - CHEMISTRY ORDERABLES F inal Result [address] [address], [facility] [phone] * (ABNORMAL) CALCIUM IONIZED WHOLE BLOOD (11/03/2024 12:46 AM CDT) Calcium Ionized 0.87 mmol/L 11/03/2024 12:55 AM CDT [facility] pH 7.48(H) 7.35 - 7.45 pH 11/03/2024 12:55 AM CDT [facility] Ionized Calcium pH Adjusted 0.90(L) 1.19 - 1.34 mmol/L 11/03/2024 12:55 AM CDT [facility] Blood BLOOD SPECIMEN / Unknown Venipuncture / Unknown 11/03/2024 12:46 AM CDT 11/03/2024 12:52 AM CDT Lamberto Singh MD LAB - CHEMISTRY ORDERABLES F inal Result [address] [address], [facility] [phone] * CULTURE BLOOD (11/02/2024 5:59 PM CDT) Only the most recent of2 resultswithin the time period is included. Culture No growth day 5 CRISTOBAL 11/07/2024 11:32 PM CDT [facility] Blood PERIPHERAL BLOOD / Unknown Venipuncture / Unknown 11/02/2024 5:59 PM CDT 11/02/2024 6:27 PM CDT us Lamberto Singh MD LAB - MICROBIOLOGY ORDERABLE S Final Result [facility] [address] [place] [address], [place] [phone] * ECHO COMPLETE W CONTRAST (11/02/2024 5:07 PM CDT) AV area index 0.985 cm /m SSM CV FUJI PACS Dimensionless Index 0.448 unitless SSM CV FUJI PACS Myocardial strain charge 2 unitless SSM CV FUJI PACS Sinus of Valsalva 3.731 cm SS M CV FUJI PACS IVSd 2D 1.063 cm SSM CV FUJ I PACS LVIDd 5.839 cm SSM CV FUJ I PACS LVIDs 5.012 cm SSM CV FUJ I PACS LVOT diam 2.279 cm SSM CV FUJ I PACS LVPWd 0.873 cm SSM CV FUJ I PACS LV biplane EF 26.308 % SSM CV FUJI PACS LV A2C EF 34.64 % SSM CV FUJ I PACS LV A4C EF 21.566 % SSM CV FUJ I PACS LV EDV A2C 169.028 ml SSM CV FU JI PACS LV EDV A4C 190.162 ml SSM CV FU JI PACS LV ESV A2C 110.476 ml SSM CV FU JI PACS LV ESV A4C 149.153 ml SSM CV FU JI PACS LVOT pk grad 3.028 mmHg SSM CV FUJI PACS LVOT pk anil 87.011 cm/s SSM CV F UJI PACS LVOT VTI 11.692 cm SSM CV FUJ I PACS RVOT pk anil 82.465 cm/s SSM CV F UJI PACS RVOT VTI 11.313 cm SSM CV FUJ I PACS LA size 3.481 cm SSM CV FUJ I PACS AV area pk anil 1.759 cm SSM CV FUJI PACS AV area cont VTI 1.83 cm SSM CV FUJI PACS AV pk grad 9.012 mmHg SSM CV FU JI PACS AV mn grad 5.097 mmHg SSM CV FU JI PACS AV pk anil 201.898 cm/s SSM CV FUJ I PACS AV VTI 26.07 cm SSM CV FUJ I PACS MV A pk anil 90.585 cm/s SSM CV F UJI PACS MV E pk anil 73.68 cm/s SSM CV F UJI PACS PV pk anil 88.904 cm/s SSM CV FUJ I PACS PV VTI 12.076 cm SSM CV FUJ I PACS Ascending aorta 3.964 cm SSM CV FUJI PACS Anatomical Region Laterality Modality Ultrasound 11/02/2024 4:36 PM CDT Narrative 11/02/2024 6:41 PM CDT Summary * The left ventricle is moderately dilated, with severely reduced systolic function and an estimated ejection fraction of 26 % by biplane method of disks. Left ventricular wall motion is globally hypokinetic. * Right ventricle is dilated with normal systolic function. * No hemodynamically significant valve disease. * The aortic root at the sinus of Valsalva is borderline dilated measuring 3.7 cm with an index of 2.0 cm/m2. * The ascending aorta is dilated measuring 4.0 cm with an index of 2.1 cm/m2. Patient Info Name: Gabino Ocampo Age: 74 years : 1950 Gender: Male Ht: 66 in Wt: 161 lb BSA: 1.86 m2 HR: 105 bpm BP: 116 / 98 mmHg Exam Date: 11/02/2024 4:36 PM Patient Status: I/P Study Site: [facility] Primary Location: [facility] EStudy Info Technical Quality: Fair Exam Type: ECHO COMPLETE W CONTRAST Indications R57.0 - Cardiogenic shock (HCC) Procedure(s) * A complete 2D, color Doppler, spectral Doppler, and M-Mode transthoracic echocardiogram was performed. * An Ultrasound Enhancing Agent (UEA) was utilized to enhance endocardial definition, opacify the left ventricle and further assess left ventricular function and wall motion. Contrast/Agitated Saline Contrast / Saline: Definity Amount: 1.50 ml Reason for Technically Difficult Study: lung interference, body habitus Staff Referring Physician: Lamberto Singh Ordering Provider: Lamberto Singh Attending Physician: Lamberto Singh Wheel Truer: Jose Nava Left Ventricle Left ventricular systolic function is severely reduced with an estimated ejection fraction of 26 % by biplane method of disks. The left ventricle is moderately dilated. The left ventricular mass is mildly increased with eccentric hypertrophy. Left ventricular segmental wall motion is globally hypokinetic. The left ventricular diastolic function is indeterminate. Right Ventricle The right ventricle is dilated. Right ventricular systolic function is normal. Left Atrium The left atrium is not well visualized, but appears dilated. Right Atrium The right atrium is not well visualized, but appears grossly normal in size. Atrial Septum Interatrial septum not well visualized by 2D and color Doppler imaging. Aortic Valve The aortic valve is trileaflet. There is mild aortic valve regurgitation. There is no aortic valve stenosis with a peak velocity of 2.0 m/s, mean gradient of 5 mmHg, and aortic valve area of 1.83 cm2. Pulmonic Valve The pulmonic valve is normal. There is no pulmonic valve stenosis. There is trace pulmonic regurgitation. Mitral Valve The mitral valve is normal. There is no mitral valve stenosis. There is mild mitral valve regurgitation. Tricuspid Valve The tricuspid valve is normal. There is no tricuspid valve stenosis. There is mild tricuspid valve regurgitation. Unable to assess pulmonary pressures due to a lack of tricuspid and pulmonic regurgitation. Inferior Vena Cava The inferior vena cava is not well visualized and therefore the right atrial pressure is assumed to be 8 mmHg. Pericardium/Pleural There is no pericardial effusion. Aorta The aortic root at the sinus of Valsalva is borderline dilated measuring 3.7 cm with an index of 2.0 cm/m2. The ascending aorta is dilated measuring 4.0 cm with an index of 2.1 cm/m2. Measurements Left Ventricular Outflow Tract Name Value Normal LVOT 2D LVOT Diameter 2.3 cm LVOT Area 4.1 cm2 LVOT Doppler LVOT Peak Velocity 0.9 m/s LVOT Peak Gradient 3 mmHg LVOT Mean Velocity 61.14 cm/s LVOT Mean Gradient 2 mmHg LVOT VTI 11.7 cm LVOT VTI/AV VTI Ratio 0.4 LVOT Stroke Volume 48 ml LVOT Stroke Volume Index 26 ml/m2 35-58 LVOT CO 5.0 l/min LVOT CI 2.7 l/min/m2 Pulmonic Valve Name Value Normal RVOT Doppler RVOT Peak Velocity 0.8 m/s RVOT Peak Gradient 3 mmHg RVOT Mean Gradient 2 mmHg PV Doppler PV Peak Velocity 0.9 m/s PV Peak Gradient 3 mmHg PV Mean Gradient 2 mmHg Mitral Valve Name Value Normal MV Doppler MV PHT 41 ms MV Area (PHT) 5.33 cm2 4.00-5.00 MV Diastolic Function MV E Peak Velocity 0.7 m/sec MV A Peak Velocity 0.9 m/sec MV E/A 0.8 MV Decel Time (PW) 142 ms Tricuspid Valve Name Value Normal Estimated PAP/RSVP RA Pressure 15 mmHg <=5 TV Annular TDI TV Lateral Nadja s' Velocity 12 cm/s 10-19 Aorta Name Value Normal Ascending Aorta Sinus of Valsalva Diameter 3.7 cm 2.8-4.0 Sinus of Valsalva Index 2.0 cm/m2 1.3-2.1 Asc Ao Diameter 4.0 cm 2.2-3.8 Asc Ao Diameter Index 2.1 cm/m2 1.1-1.9 Aortic Valve Name Value Normal AV 2D/MM AV Cusp Sep (MM) 2.0 cm AV Doppler AV Peak Velocity 2.02 m/s AV Peak Gradient 9 mmHg AV Mean Gradient 5 mmHg AV VTI 26 cm AV Area (Cont Eq VTI) 1.83 cm2 >=2.00 AV Area (Cont Eq Anil) 1.76 cm2 AV DI (VTI) 0.45 AV DI (Anil) 0.43 AV Regurgitation 2D LVOT Area 4.08 cm2 Ventricles Name Value Normal LV Dimensions 2D/MM IVS Diastolic Thickness (2D) 1.1 cm 0.6-1.0 LVID Diastole (2D) 5.8 cm 4.2-5.8 LVPW Diastolic Thickness (2D) 0.9 cm 0.6-1.0 LVID Systole (2D) 5.0 cm 2.5-4.0 LV Mass (2D Cubed) 226 g 88-224 LV Mass Index (2D Cubed) 122 g/m2 49-115 Relative Wall Thickness (2D) 0.30 <=0.42 LV Fractional Shortening/Ejection Fraction 2D/MM LV Fractional Shortening (2D) 14 % 25-43 LV EF (2D Teicholz) 30 % 52-72 LV Diastolic Volume (4C MOD) 190 ml LV EF (4C MOD) 22 % LV Diastolic Volume (2C MOD) 169 ml LV EF (2C MOD) 35 % LV Diastolic Volume (BP MOD) 179 ml 62-150 LV Diastolic Volume Index (BP MOD) 97 ml/m2 34-74 LV Systolic Volume (BP MOD) 132 ml 21-61 LV Systolic Volume Index (BP MOD) 71 ml/m2 11-31 LV EF (BP MOD) 26 % 52-72 LV Diastolic Length (4C) 8.4 cm LV Systolic Length (4C) 7.8 cm LV Stroke Volume (4C MOD) 41 ml Atria Name Value Normal LA Dimensions LA Dimension (2D) 3.5 cm 3.0-4.1 LA Dimen Index (2D) 1.9 cm/m2 Report Signatures Finalized by Cristi Neff on 11/02/2024 06:41 PM Procedure Note Cristi Neff MD - 11/02/2024 Summary * The left ventricle is moderately dilated, with severely reducedsystolic function and an estimated ejection fraction of 26 % by biplane method of disks. Left ventricular wall motion is globally hypokinetic. * Right ventricle is dilated with normal systolic function. * No hemodynamically significant valve disease. * The aortic root at the sinus of Valsalva is borderline dilatedmeasuring 3.7 cm with an index of 2.0 cm/m2. * The ascending aorta is dilated measuring 4.0 cm with an index of 2.1 cm/m2. Patient Info Name: Gabino Ocampo Age: 74 years : 1950 Gender: Male Ht: 66 in Wt: 161 lb BSA: 1.86 m2 HR: 105 bpm BP: 116 / 98 mmHg Exam Date: 11/02/2024 4:36 PM Patient Status: I/P Study Site: [facility] Primary Location: [facility] Info Technical Quality: Fair Exam Type: ECHO COMPLETE W CONTRAST Indications R57.0 - Cardiogenic shock (HCC) Procedure(s) * A complete 2D, color Doppler, spectral Doppler, and M-Modetransthoracic echocardiogram was performed. * An Ultrasound Enhancing Agent (UEA) was utilized to enhanceendocardial definition, opacify the left ventricle and further assess leftventricular function and wall motion. Contrast/Agitated Saline Contrast / Saline: Definity Amount: 1.50 ml Reason for Technically Difficult Study: lung interference, bodyhabitus Staff Referring Physician: Lamberto Singh Ordering Provider: Lamberto Singh Attending Physician: Lamberto Singh Wheel Truer: Jose Nava Left Ventricle Left ventricular systolic function is severely reduced with anestimated ejection fraction of 26 % by biplane method of disks. The left ventricleis moderately dilated. The left ventricular mass is mildly increased with eccentric hypertrophy. Left ventricular segmental wall motion isglobally hypokinetic. The left ventricular diastolic function is indeterminate. Right Ventricle The right ventricle is dilated. Right ventricular systolic function is normal. Left Atrium The left atrium is not well visualized, but appears dilated. Right Atrium The right atrium is not well visualized, but appears grossly normal insize. Atrial Septum Interatrial septum not well visualized by 2D and color Dopplerimaging. Aortic Valve The aortic valve is trileaflet. There is mild aortic valveregurgitation. There is no aortic valve stenosis with a peak velocity of 2.0 m/s, mean gradient of 5 mmHg, and aortic valve area of 1.83 cm2. Pulmonic Valve The pulmonic valve is normal. There is no pulmonic valve stenosis. Thereis trace pulmonic regurgitation. Mitral Valve The mitral valve is normal. There is no mitral valve stenosis. There ismild mitral valve regurgitation. Tricuspid Valve The tricuspid valve is normal. There is no tricuspid valve stenosis.There is mild tricuspid valve regurgitation. Unable to assess pulmonarypressures due to a lack of tricuspid and pulmonic regurgitation. Inferior Vena Cava The inferior vena cava is not well visualized and therefore the rightatrial pressure is assumed to be 8 mmHg. Pericardium/Pleural There is no pericardial effusion. Aorta The aortic root at the sinus of Valsalva is borderline dilated measuring3.7 cm with an index of 2.0 cm/m2. The ascending aorta is dilated measuring4.0 cm with an index of 2.1 cm/m2. Measurements Left Ventricular Outflow Tract Name Value Normal LVOT 2D LVOT Diameter 2.3 cm LVOT Area 4.1 cm2 LVOT Doppler LVOT Peak Velocity 0.9 m/s LVOT Peak Gradient 3 mmHg LVOT Mean Velocity 61.14 cm/s LVOT Mean Gradient 2 mmHg LVOT VTI 11.7 cm LVOT VTI/AV VTI Ratio 0.4 LVOT Stroke Volume 48 ml LVOT Stroke Volume Index 26 ml/m2 35-58 LVOT CO 5.0 l/min LVOT CI 2.7 l/min/m2 Pulmonic Valve Name Value Normal RVOT Doppler RVOT Peak Velocity 0.8 m/s RVOT Peak Gradient 3 mmHg RVOT Mean Gradient 2 mmHg PV Doppler PV Peak Velocity 0.9 m/s PV Peak Gradient 3 mmHg PV Mean Gradient 2 mmHg Mitral Valve Name Value Normal MV Doppler MV PHT 41 ms MV Area (PHT) 5.33 cm2 4.00-5.00 MV Diastolic Function MV E Peak Velocity 0.7 m/sec MV A Peak Velocity 0.9 m/sec MV E/A 0.8 MV Decel Time (PW) 142 ms Tricuspid Valve Name Value Normal Estimated PAP/RSVP RA Pressure 15 mmHg <=5 TV Annular TDI TV Lateral Nadja s' Velocity 12 cm/s 10-19 Aorta Name Value Normal Ascending Aorta Sinus of Valsalva Diameter 3.7 cm 2.8-4.0 Sinus of Valsalva Index 2.0 cm/m2 1.3-2.1 Asc Ao Diameter 4.0 cm 2.2-3.8 Asc Ao Diameter Index 2.1 cm/m2 1.1-1.9 Aortic Valve Name Value Normal AV 2D/MM AV Cusp Sep (MM) 2.0 cm AV Doppler AV Peak Velocity 2.02 m/s AV Peak Gradient 9 mmHg AV Mean Gradient 5 mmHg AV VTI 26 cm AV Area (Cont Eq VTI) 1.83 cm2 >=2.00 AV Area (Cont Eq Anil) 1.76 cm2 AV DI (VTI) 0.45 AV DI (Anil) 0.43 AV Regurgitation 2D LVOT Area 4.08 cm2 Ventricles Name Value Normal LV Dimensions 2D/MM IVS Diastolic Thickness (2D) 1.1 cm 0.6-1.0 LVID Diastole (2D) 5.8 cm 4.2-5.8 LVPW Diastolic Thickness (2D) 0.9 cm 0.6-1.0 LVID Systole (2D) 5.0 cm 2.5-4.0 LV Mass (2D Cubed) 226 g 88-224 LV Mass Index (2D Cubed) 122 g/m2 49-115 Relative Wall Thickness (2D) 0.30 <=0.42 LV Fractional Shortening/Ejection Fraction 2D/MM LV Fractional Shortening (2D) 14 % 25-43 LV EF (2D Teicholz) 30 % 52-72 LV Diastolic Volume (4C MOD) 190 ml LV EF (4C MOD) 22 % LV Diastolic Volume (2C MOD) 169 ml LV EF (2C MOD) 35 % LV Diastolic Volume (BP MOD) 179 ml 62-150 LV Diastolic Volume Index (BP MOD) 97 ml/m2 34-74 LV Systolic Volume (BP MOD) 132 ml 21-61 LV Systolic Volume Index (BP MOD) 71 ml/m2 11-31 LV EF (BP MOD) 26 % 52-72 LV Diastolic Length (4C) 8.4 cm LV Systolic Length (4C) 7.8 cm LV Stroke Volume (4C MOD) 41 ml Atria Name Value Normal LA Dimensions LA Dimension (2D) 3.5 cm 3.0-4.1 LA Dimen Index (2D) 1.9 cm/m2 Report Signatures Finalized by Cristi Neff on 11/02/2024 06:41 PM us Lamberto Singh MD ECHO CUPID Final Result * EKG 12-Lead (11/02/2024 11:46 AM CDT) Only the most recent of2 resultswithin the time period is included. Ventricular Rate 101 BPM [facility] Atrial Rate 101 BPM [facility] P-R Interval 140 ms [facility] QRS Duration ms 100 ms [facility] Q-T Interval ms 328 ms [facility] QTC Calculation (Bezet) 425 ms [facility] Calculated P [place] 50 degrees [facility] Calculated R [place] -7 degrees [facility] Calculated T [place] 137 degrees [facility] Interpretation EKG SINUS TACHYCARDIA WITH PREMATURE SUPRAVENTRICULAR COMPLEXES MODERATE VOLTAGE CRITERIA FOR LVH, MAY BE NORMAL VARIANT ( R in aVL , Hadley product ) INFERIOR INFARCT , AGE UNDETERMINED ST & T WAVE ABNORMALITY, CONSIDER LATERAL ISCHEMIA ABNORMAL ECG WHEN COMPARED WITH ECG OF 02-NOV-2024 05:29, NO SIGNIFICANT CHANGE WAS FOUND Confirmed by CRISTI NEFF MD ([id number]) on 11/04/2024 8:42:48 PM [facility] 11/02/2024 11:4 6 AM CDT 11/04/2024 8:42 PM CDT us Lamberto Singh MD ECG ORDERABLES Edited Resul t - Final [facility] * (ABNORMAL) TROPONIN-I HIGH SENSITIVE (11/02/2024 11:41 AM CDT) Only the most recent of3 resultswithin the time period is included. Pathologist [facility] [place] Troponin I High Sensitive 113(H) <=35 ng/L 11/02/2024 12:30 PM CDT [facility] Blood BLOOD SPECIMEN / Unknown Venipuncture / Unknown 11/02/2024 11:41 AM CDT 11/02/2024 11:55 AM CDT Lamberto Singh MD LAB - CHEMISTRY ORDERABLES F inal Result Performing Organization Address City/[facility] [address]/ZIP Co de Phone Number [address] [address], [place] [phone] * (ABNORMAL) B-TYPE NATRIURETIC PEPTIDE (11/02/2024 11:41 AM CDT) Pathologist [facility] [place] BNP 847(H) <100 pg/mL 11/02/2024 12:31 PM CDT [facility] Comment: A decision threshold of 100 pg/mL has been demonstrated to provide the maximal combination of sensitivity, specificity and predictive value for the diagnosis of congestive heart failure (CHF). Virtually all patients with no evidence of CHF have BNP values less than 100 pg/mL. A BNP value greater than 100 pg/mL is consistent with the diagnosis of CHF in the appropriate clinical setting. In a study of 693 patients (male and female) with diagnosed CHF, the following values were determined based on the NYHA functional classification system: NYHA Functional Class Mean Valule (pg/mL) % >100 pg/mL I 320 58.1 II 432 73.0 III 656 79.0 IV 1635 98.3 Blood BLOOD SPECIMEN / Unknown Venipuncture / Unknown 11/02/2024 11:41 AM CDT 11/02/2024 11:55 AM CDT Lamberto Singh MD LAB - CHEMISTRY ORDERABLES F inal Result Performing Organization Address City/[facility] [address]/ZIP Co de Phone Number [address] [address], [place] [phone] * (ABNORMAL) LACTIC ACID BLOOD (11/02/2024 11:41 AM CDT) Only the most recent of2 resultswithin the time period is included. Lactic Acid-Stat 2.8(H) <=2.0 mmol/L 11/02/2024 12:20 PM CDT [facility] Blood BLOOD SPECIMEN / Unknown Venipuncture / Unknown 11/02/2024 11:41 AM CDT 11/02/2024 11:54 AM CDT us Lamberto Singh MD LAB - CHEMISTRY ORDERABLES F inal Result Performing Organization Address City/[facility] [address]/ZIP Co de Phone Number [address] [address], [place] [phone] * UREA NITROGEN URINE RANDOM (11/02/2024 11:27 AM CDT) Urea Nitrogen Random Urine 472 Not Established mg/dL 11/02/2024 12:14 PM CDT [facility] Urine URINE SPECIMEN OBTAINED BY CLEAN CATCH PROCEDURE / Unknown Collection / Unknown 11/02/2024 11:27 AM CDT 11/02/2024 11:46 AM CDT us Lamberto Singh MD LAB - URINE CHEMISTRY ORDERA BLES Final Result Performing Organization Address [facility] Co de Phone Number [address] [address], [place] [phone] * CREATININE URINE RANDOM (11/02/2024 11:27 AM CDT) Creatinine Urine 79.19 Not Established mg/dL 11/02/2024 12:14 PM CDT [facility] Urine URINE SPECIMEN OBTAINED BY CLEAN CATCH PROCEDURE / Unknown Collection / Unknown 11/02/2024 11:27 AM CDT 11/02/2024 11:46 AM CDT us Lamberto Singh MD LAB - URINE CHEMISTRY ORDERA BLES Final Result Performing Organization Address [facility] [address]/ZIP Co de Phone Number [address] [address], [place] [phone] * XR Abdomen Kub Portable (11/02/2024 9:57 AM CDT) Anatomical Region Laterality Modality Abdomen Digital Radiogra phy 11/02/2024 12:5 3 PM CDT Impressions 11/02/2024 12:54 PM CDT IMPRESSION: Mild mildly dilated small bowel loops measuring up to 4 cm. Gas is identified in the distal colon and rectum. Findings may represent ileus or low-grade obstruction. Mild to moderate left predominant colonic stool volume. Mild left basilar atelectasis/airspace disease. Cardiomegaly. > Interpreting Provider: Taisha Seymour MD on 11/02/2024 12:54 PM Narrative 11/02/2024 12:54 PM CDT PROCEDURE: XR ABDOMEN KUB PORTABLE DATE/TIME OF EXAM: 11/02/2024 9:57 AM CLINICAL INFORMATION: None relevant/not provided if blank. Indication: S36.119A: Hepatic trauma, initial encounter Additional History: COMPARISON: None. Procedure Note Taisha Seymour MD - 11/02/2024 PROCEDURE: XR ABDOMEN KUB PORTABLE DATE/TIME OF EXAM: 11/02/2024 9:57 AM CLINICAL INFORMATION: None relevant/not provided if blank. Indication: S36.119A: Hepatic trauma, initial encounter Additional History: COMPARISON: None. IMPRESSION: Mild mildly dilated small bowel loops measuring up to 4 cm. Gas is identified in the distal colon and rectum. Findings may represent ileusor low-grade obstruction. Mild to moderate left predominant colonic stool volume. Mild leftbasilar atelectasis/airspace disease. Cardiomegaly. > Interpreting Provider: Taisha Seymour MD on 11/02/2024 12:54 PM us Lamberto Singh MD DIAGNOSTIC IMAGING ORDERABLE S Final Result * US Abdomen Ltd W Comp Doppler (11/02/2024 9:47 AM CDT) Anatomical Region Laterality Modality Abdomen Ultrasound 11/02/2024 9:58 AM CDT Impressions 11/02/2024 1:40 PM CDT IMPRESSION: 1. No discrete hepatic lesion or intrahepatic biliary dilation. Patent hepatic vasculature. 2. Sludge in the gallbladder. 3. Incidental right pleural effusion 4. Trace fluid in the Angulo's pouch Report dictated by Zachary Rushing MD (Escalation Engineer) Zan Jeronimo MD have personally reviewed and interpreted this examination/study. > Interpreting Provider: Zan Cortes MD on 11/02/2024 1:40 PM Narrative 11/02/2024 1:40 PM CDT PROCEDURE: US ABDOMEN LTD W COMP DOPPLER, DATE/TIME OF EXAM: 11/02/2024 9:48 AM, LOCATION [facility] INDICATION: S36.119A: Hepatic trauma, initial encounter COMPARISON: None. FINDINGS: Abdomen: The liver is normal in echotexture and surface contour. No discrete hepatic mass or intrahepatic biliary dilation is seen. There is sludge in the gallbladder. No gallstones or pericholecystic fluid is seen. The gallbladder wall is upper-limit of normal in thickness, measuring 3 mm. Sonographic Rizo's sign is negative. The common bile duct is nondilated, measuring 5 mm. Incidental right pleural effusion visualized. The right kidney measures 10 x 4.6 x 6.1 cm. Trace fluid in Morrisons pouch. Limited views of the right kidney reveal no evidence of nephrolithiasis or hydronephrosis. The spleen measures 11.2 cm in length. The pancreas is obscured by overlying bowel gas. No ascites is present. Liver Doppler: Color and spectral Doppler evaluation demonstrates patency of the hepatic veins with appropriate flow direction and multiphasic waveforms. The main, left, and right portal veins appear patent with normal hepatopetal flow. The main portal vein demonstrates a normal phasic waveform and velocity measures 45 cm/s. The proper hepatic artery is patent and demonstrates a normal arterial waveform with brisk systolic upstroke and antegrade flow. Resistive index in the proper hepatic artery measures 0.67. Procedure Note Sasha Cortes MD - 11/02/2024 PROCEDURE: US ABDOMEN LTD W COMP DOPPLER, DATE/TIME OF EXAM: 11/02/2024 9:48 AM, LOCATION [facility] INDICATION: S36.119A: Hepatic trauma, initial encounter COMPARISON: None. FINDINGS: Abdomen: The liver is normal in echotexture and surface contour. No discretehepatic mass or intrahepatic biliary dilation is seen. There is sludge in the gallbladder. No gallstones or pericholecysticfluid is seen. The gallbladder wall is upper-limit of normal in thickness, measuring 3 mm. Sonographic Rizo's sign is negative. The common bileduct is nondilated, measuring 5 mm. Incidental right pleural effusion visualized. The right kidney measures 10 x 4.6 x 6.1 cm. Trace fluid in Morrisons pouch. Limited views of the right kidney reveal no evidence of nephrolithiasis or hydronephrosis. The spleen measures 11.2 cm inlength. The pancreas is obscured by overlying bowel gas. No ascites is present. Liver Doppler: Color and spectral Doppler evaluation demonstrates patency of thehepatic veins with appropriate flow direction and multiphasic waveforms. The main, left, and right portal veins appear patent with normal hepatopetal flow. The main portal vein demonstrates a normal phasic waveform and velocity measures 45 cm/s. The proper hepatic artery is patent and demonstrates a normal arterial waveform with brisk systolic upstroke and antegrade flow. Resistiveindex in the proper hepatic artery measures 0.67. IMPRESSION: 1. No discrete hepatic lesion or intrahepatic biliary dilation. Patent hepatic vasculature. 2. Sludge in the gallbladder. 3. Incidental right pleural effusion 4. Trace fluid in the Angulo's pouch Report dictated by Zachary Rushing MD (Escalation Engineer) IZan MD have personally reviewed and interpreted this examination/study. > Interpreting Provider: Zan Cortes MD on 11/02/2024 1:40 PM Lamberto Singh MD ORDERABLES Final Result * RESPIRATORY PANEL WITH SARS-COV-2 BY PCR (STL) (11/02/2024 8:18 AM CDT) Adenovirus PCR Not detected Not detected 11/02/2024 4:24 PM CDT [facility] Coronavirus 229E PCR Not detected Not detected 11/02/2024 4:24 PM CDT [facility] Coronavirus HKU1 PCR Not detected Not detected 11/02/2024 4:24 PM CDT [facility] Coronavirus NL63 PCR Not detected Not detected 11/02/2024 4:24 PM CDT [facility] Coronavirus OC43 PCR Not detected Not detected 11/02/2024 4:24 PM CDT [facility] COVID-19 PCR Not detected Not detected 11/02/2024 4:24 PM CDT [facility] Human Metapneumovirus PCR Not detected Not detected 11/02/2024 4:24 PM CDT [facility] Human Rhinovirus/Enterov irus PCR Not detected Not detected 11/02/2024 4:24 PM CDT [facility] Influenza A PCR Not detected Not detected 11/02/2024 4:24 PM CDT [facility] Influenza B PCR Not detected Not detected 11/02/2024 4:24 PM CDT [facility] Parainfluenza Virus 1 PCR Not detected Not detected 11/02/2024 4:24 PM CDT [facility] Parainfluenza Virus 2 PCR Not detected Not detected 11/02/2024 4:24 PM CDT [facility] Parainfluenza Virus 3 PCR Not detected Not detected 11/02/2024 4:24 PM CDT [facility] Parainfluenza Virus 4 PCR Not detected Not detected 11/02/2024 4:24 PM CDT [facility] Respiratory Syncytial Virus PCR Not detected Not detected 11/02/2024 4:24 PM CDT [facility] Bordetella parapertussis PCR Not detected Not detected 11/02/2024 4:24 PM CDT [facility] Bordetella pertussis PCR Not detected Not detected 11/02/2024 4:24 PM CDT [facility] Chlamydia pneumoniae PCR Not detected Not detected 11/02/2024 4:24 PM CDT [facility] Mycoplasma pneumoniae PCR Not detected Not detected 11/02/2024 4:24 PM CDT [facility] Microbiology SPECIMEN FROM NASOPHARYNGEAL STRUCTURE / Unknown Collection / Unknown 11/02/2024 8:18 AM CDT 11/02/2024 9:08 AM CDT [facility] MICROBIOLOGY - 11/02/2024 4:24 PM CDT This nucleic amplification assay has received FDA authorization via the [employer]. us Lamberto Singh MD LAB - MICROBIOLOGY ORDERABLE S Final Result [facility] [address] [place], [place] [address], [facility] [phone] * XR Chest 1Vw Portable (11/02/2024 5:41 AM CDT) Anatomical Region Laterality Modality Chest Digital Radiogra phy 11/02/2024 12:5 4 PM CDT Impressions 11/02/2024 12:55 PM CDT IMPRESSION: Cardiomegaly. Atherosclerotic aorta. Bilateral interstitial and hazy airspace opacities, which may represent pulmonary edema or pneumonia in the appropriate clinical setting. No large effusion or pneumothorax. > Interpreting Provider: Taisha Seymour MD on 11/02/2024 12:55 PM Narrative 11/02/2024 12:55 PM CDT PROCEDURE: XR CHEST 1VW PORTABLE DATE/TIME OF EXAM: 11/02/2024 5:41 AM CLINICAL INFORMATION: None relevant/not provided if blank. Indication: S36.119A: Hepatic trauma, initial encounter Additional History: COMPARISON: None. Procedure Note Taisha Seymour MD - 11/02/2024 PROCEDURE: XR CHEST 1VW PORTABLE DATE/TIME OF EXAM: 11/02/2024 5:41 AM CLINICAL INFORMATION: None relevant/not provided if blank. Indication: S36.119A: Hepatic trauma, initial encounter Additional History: COMPARISON: None. IMPRESSION: Cardiomegaly. Atherosclerotic aorta. Bilateral interstitial and hazy airspace opacities, which may represent pulmonary edema or pneumonia inthe appropriate clinical setting. No large effusion or pneumothorax. > Interpreting Provider: Taisha Seymour MD on 11/02/2024 12:55 PM Edgard Guajardo MD DIAGNOSTIC IMAGING ORDERABLES F inal Result * (ABNORMAL) URINALYSIS REFLEX TO MICROSCOPIC NO CULTURE (11/01/2024 11:39 PM CDT) Color UA Yellow Yellow, Straw 11/01/2024 11:57 PM CDT [facility] Clarity UA Turbid(A) Clear 11/01/2024 11:57 PM CDT [facility] Glucose UA Normal Normal 11/01/2024 11:57 PM CDT [facility] Bilirubin UA Negative Negative 11/01/2024 11:57 PM T [facility] Ketone UA Negative Negative 11/01/2024 11:57 PM [facility] Specific [place] UA 1.014 1.005 - 1.030 11/01/2024 11:57 PM [facility] Blood UA 2+(A) Negative 11/01/2024 11:57 PM [facility] pH UA 5.0 5.0 - 8.0 11/01/2024 11:57 PM [facility] Protein UA Trace(A) Negative 11/01/2024 11:57 PM [facility] Urobilinogen UA Normal Normal mg/dL 025 11:57 PM [facility] Nitrite UA Negative Negative 11/01/2024 11:57 PM [facility] Leukocyte Esterase UA Negative Negative 11/01/2024 11:57 PM [facility] RBC UA 6-10(A) 0 - 5 # /hpf 11/01/2024 11:57 PM [facility] WBC UA 6-10(A) 0 - 5 # /hpf 11/01/2024 11:57 PM [facility] Bacteria UA Trace(A) None Seen 11/01/2024 11:57 PM [facility] Squamous Epithelial Cells 0-2 0 - 5 /hpf 11/01/2024 11:57 PM [facility] Urine URINE SPECIMEN OBTAINED VIA [employer] URINARY CATHETER / Unknown Collection / Unknown 11/01/2024 11:39 PM CDT 11/01/2024 11:48 PM CDT us Edgard Guajardo MD LAB - URINALYSIS ORDERABLES Fin al Result [address] [address], [facility] [phone] * SMOOTH MUSCLE ANTIBODY W REFLEX TITER (11/01/2024 11:23 PM CDT) F-Actin Antibody IgG 7 0 - 19 Units 11/04/2024 5:33 AM CDT [facility] ([facility]) Comment: If F-Actin (Smooth Muscle) Antibody, IgG is negative, the Smooth Muscle Antibody titer by IFA is not performed. REFERENCE INTERVAL: F-Actin (Smooth Muscle) Antibody, IgG by ARLINE 19 Units or less ....... Negative 20 - 30 Units .......... Weak Positive-Suggest repeat testing in two to three weeks with fresh specimen. 31 Units or greater..... Positive-Suggestive of autoimmune hepatitis type 1 or chronic active hepatitis. F-actin IgG antibodies have been shown to have increased sensitivity for autoimmune hepatitis (AIH) but lower specificity than smooth muscle antibodies (SMA). F-actin IgG antibodies can also be seen in SMA-negative disease controls (non-AIH), especially in patients with primary biliary cirrhosis and chronic hepatitis C infections. Some patients with AIH may be SMA-positive but negative for F-actin IgG. Consider testing for SMA by IFA if suspicion for AIH is strong. Performed By: [facility] [address] [place] [id number] Literary Agent: Antonio Serrano MD, PhD CLIA Number: [id number] Blood BLOOD SPECIMEN / Unknown Venipuncture / Unknown 11/01/2024 11:23 PM CDT 11/01/2024 11:49 PM CDT Edgard Guajardo MD LAB - SEROLOGY ORDERABLES Final Result [facility]) [address] [place] [id number] * MITOCHONDRIAL ANTIBODY SCREEN (11/01/2024 11:23 PM CDT) Pathologist [facility] Mitochondrial M2 Antibody 5.3 0.0 - 24.9 Units 11/04/2024 12:12 AM CDT [facility] ([facility]) Comment: REFERENCE INTERVAL: Mitochondrial (M2) Antibody, IgG 20.0 Units or less ......... Negative 20.1 - 24.9 Units........... Equivocal 25.0 Units or greater....... Positive Anti-mitochondrial antibodies (AMA) are thought to be present in 90-95% of patients with primary biliary cholangitis (PBC). However, the frequency of detected antibodies may be cohort or assay dependent, as lower sensitivities have been reported. Not all PBC patients are positive for AMA; some patients may be positive for SP100 and/or GP210 antibodies. A negative result does not rule out PBC. Performed By: [employer] [address] [place] [address] Literary Agent: Antonio Serrano MD, PhD CLIA Number: [id number] Blood BLOOD SPECIMEN / Unknown Venipuncture / Unknown 11/01/2024 11:23 PM CDT 11/01/2024 11:50 PM CDT Edgard Guajardo MD LAB - CHEMISTRY ORDERABLES Kaitlynn l Result [facility] ([facility]) [address] [place] [address], [facility] * HEPATITIS B SURFACE ANTIBODY QUANT (11/01/2024 11:23 PM CDT) Hepatitis B Virus Surface Antibody Non-react palma Non-react palma 11/02/2024 1:44 AM CDT [facility] Comment: < 8 mIU/mL Hepatitis B surface Antibody (HBsAb). Nonreactive for HBsAb - individual is considered not immune to Hepatitis B Virus infection. Hepatitis B Surface Antibody Quantitative <3.0 <8.0 mIU/mL 11/02/2024 1:44 AM CDT [facility] Comment: Hepatitis B Surface Antibody Numeric Result Interpretation: Nonreactive: <8.0 mIU/mL Indeterminate: 8.0 - 12.0 mIU/mL Reactive: >12.0 mIU/mL Blood BLOOD SPECIMEN / Unknown Venipuncture / Unknown 11/01/2024 11:23 PM CDT 11/01/2024 11:49 PM CDT Narrative [facility] - 11/02/2024 1:44 AM CDT This assay should not be used for blood, plasma, or tissue donor screening. This assay is not recommended for neonates born to HBV-infected or suspected HBV-infected mothers. Edgard Guajardo MD LAB - SEROLOGY ORDERABLES Final Result [facility] [address] [place] [address], [place] [phone] * HEPATITIS C RNA QUANTITATIVE (11/01/2024 11:23 PM CDT) [facility] Hepatitis C RNA PCR, Interp Not detected Not detected 11/02/2024 10:55 AM CDT [facility] Hepatitis C Quant by PCR, Log NA log IU/mL 11/02/2024 10:55 AM CDT [facility] Blood BLOOD SPECIMEN / Unknown Venipuncture / Unknown 11/01/2024 11:23 PM CDT 11/02/2024 12:34 AM CDT Narrative [facility] - 11/02/2024 10:55 AM CDT The Hepatitis C viral (HCV) RNA analysis utilized a serum sample, real-time reverse pipe fitter welding PCR, and is reported as Not Detected, Detected (<15 IU/mL), Quantity (IU/mL) or >100,000,000 IU/mL. The analytic sensitivity (LOD) of the assay is 15 IU/mL. The linear range is from 15 IU/mL to 100,000,000 IU/mL. Values less than 15 IU/mL are reported as Detected (<15 IU/mL). Values greater than 100,000,000 IU/mL are reported as >100,000,000 IU/mL. The detection/quantitation of HCV RNA in serum is based on the isolation of HCV RNA with reverse pipe fitter welding of genomic HCV RNA followed by real-time PCR in the presence of an unrelated RNA internal control. The internal control ensures that RNA is isolated, and that no general significant inhibitors of the RT-PCR process are present. The analysis was performed using a U.[place]. FDA approved test methodology Viraj genna HCV. Edgard Guajardo MD LAB - CHEMISTRY ORDERABLES Kaitlynn l Result [facility] [address] [place] [address], [place] [phone] * HEPATITIS B DNA QUANT (11/01/2024 11:23 PM CDT) [facility] HBV Qnt by NAAT Interp Not Detected Not Detected 11/04/2024 1:43 AM CDT [facility] ([facility]) Comment: INTERPRETIVE INFORMATION: HBV by Quantitative NAAT The quantitative range of this test is 1.00-9.00 log IU/mL (10-1,000,000,000 IU/mL). An interpretation of Not Detected does not rule out the presence of inhibitors in the patient specimen or HBV DNA concentration below the level of detection of the test. Care should be taken when interpreting any single viral load determination. This test is intended for use as an aid in the management of patients with chronic HBV infection undergoing anti-viral therapy. The test can be used to measure HBV DNA levels at baseline and during treatment to aid in assessing response to treatment. Results must be interpreted within the context of all relevant clinical and laboratory findings. This assay should not be used for blood donor screening, associated reentry protocols, or for screening human cell, tissues, and cellular tissue-based products (HCT/P). Performed By: [facility] [address] [place] [address] Literary Agent: Antonio Serrano MD, PhD CLIA Number: [id number] HBV Qnt by NAAT IU/mL Not Detected IU/mL 11/04/2024 1:43 AM CDT [facility]) HBV Qnt by NAAT log IU/mL Not Detected log IU/mL 11/04/2024 1:43 AM CDT [facility]) Blood BLOOD SPECIMEN / Unknown Venipuncture / Unknown 11/01/2024 11:23 PM CDT 11/01/2024 11:50 PM CDT us Edgard Guajardo MD LAB - CHEMISTRY ORDERABLES Kaitlynn l Result [facility]) [address] [place] [address] * CERULOPLASMIN (11/01/2024 11:23 PM CDT) [facility] Ceruloplasmin 32 20 - 60 mg/dL 11/02/2024 12:45 AM CDT [facility] Blood BLOOD SPECIMEN / Unknown Venipuncture / Unknown 11/01/2024 11:23 PM CDT 11/01/2024 11:49 PM CDT us Edgard Guajardo MD LAB - CHEMISTRY ORDERABLES Kaitlynn l Result Performing Organization Address City/[facility] [address]/ZIP Co de Phone Number [address] [address], [facility] [phone] * (ABNORMAL) AMMONIA (11/01/2024 11:23 PM CDT) Ammonia 80(H) <=72 umol/L 11/02/2024 12:11 AM CDT [facility] Blood BLOOD SPECIMEN / Unknown Venipuncture / Unknown 11/01/2024 11:23 PM CDT 11/01/2024 11:52 PM CDT us Edgard Guajardo MD LAB - CHEMISTRY ORDERABLES Kaitlynn l Result Performing Organization Address [facility] [address]/[facility] Co de Phone Number [address] [address], [facility] [phone] * HEPATITIS SCREEN ACUTE (11/01/2024 11:23 PM CDT) Hepatitis A Virus Antibody IgM Non-react palma Non-reac tive 11/02/2024 1:05 AM CDT [facility] Hepatitis B Virus Surface Antigen Non-react palma Non-reac tive 11/02/2024 1:05 AM CDT [facility] Hepatitis B Core Virus Antibody IgM Non-react palma Non-reac tive 11/02/2024 1:05 AM CDT [facility] Hepatitis C Antibody Non-react palma Non-reac tive 11/02/2024 1:05 AM [facility] Comment:Hepatitis C Antibody screen indicates no serologic evidence of past or current infection with Hepatitis C Virus. Patients with unexplained liver disease who are immunocompromised or suspected of having acute Hepatitis C infection may benefit from Nucleic Acid Test (POLO) for Hepatitis C Viral RNA to confirm Hepatitis C status. Blood BLOOD SPECIMEN / Unknown Venipuncture / Unknown 11/01/2024 11:23 PM CDT 11/01/2024 11:49 PM CDT Edgard Guajardo MD LAB - CHEMISTRY ORDERABLES Kaitlynn l Result Performing Organization Address [facility] [address]/ZIP Co de Phone Number [address] [address], [facility] [phone] * HEPATITIS B PANEL (11/01/2024 11:23 PM CDT) Hepatitis B Surface Antibody Quantitative <3.0 <8.0 mIU/mL 11/02/2024 1:45 AM CDT [facility] Comment: Hepatitis B Surface Antibody Numeric Result Interpretation: Nonreactive: <8.0 mIU/mL Indeterminate: 8.0 - 12.0 mIU/mL Reactive: >12.0 mIU/mL Hepatitis B Virus Surface Antibody Non-react palma Non-react palma 11/02/2024 1:45 AM CDT [facility] Comment: < 8 mIU/mL Hepatitis B surface Antibody (HBsAb). Nonreactive for HBsAb - individual is considered not immune to Hepatitis B Virus infection. Hepatitis B Virus Surface Antigen Non-react palma Non-react palma 11/02/2024 1:45 AM CDT [facility] Hepatitis B Core Virus Antibody IgM Non-react palma Non-react palma 11/02/2024 1:45 AM CDT [facility] Blood BLOOD SPECIMEN / Unknown Venipuncture / Unknown 11/01/2024 11:23 PM CDT 11/01/2024 11:49 PM CDT us Edgard Guajardo MD LAB - CHEMISTRY ORDERABLES Kaitlynn l Result Performing Organization Address City/[facility] [address]/ZIP Co de Phone Number [address] [address], [facility] [phone] * ACETAMINOPHEN LEVEL (11/01/2024 11:23 PM CDT) Acetaminophen <3.0 <3.0 ug/mL 11/02/2024 12:40 AM CDT [facility] Blood BLOOD SPECIMEN / Unknown Venipuncture / Unknown 11/01/2024 11:23 PM CDT 11/01/2024 11:52 PM CDT Narrative [facility] - 11/02/2024 12:40 AM CDT Acetaminophen Toxicity Levels (Hours Post Ingestion): >200 ug/mL at 4 hours >100 ug/mL at 8 hours >50 ug/mL at 12 hours For acute ingestion, please refer to Acetaminophen nomogram to determine the risk of toxicity based on time since ingestion and acetaminophen level (see link provided). Note the nomogram disclaimer. WARNING: Assessing the potential toxicity of an acetaminophen level on a standard risk nomogram must take into consideration many factors including any uncertainty of the time since ingestion or the possibility of other medications that may alter the peak level. Contact the [facility] at or reserved for healthcare professionals to assist you in evaluating potentially toxic acetaminophen levels. Edgard Guajardo MD LAB - CHEMISTRY ORDERABLES Kaitlynn perkins Result [facility] [address] [place] [address], [facility] [phone] from Last 3 Months Insurance [employer] MEDICARE ADV Advance Directives * Full Code (Latest Code Status on File) Date Activated Date Inactivated Comments 11/17/2024 4:45 PM 11/19/2024 3:44 PM * LIMITED RESUSCITATION-PRIOR AND AFTER ARREST Date Activated Date Inactivated Comments 11/06/2024 3:27 PM 11/17/2024 4:45 PM Question Answer Comments Limited Resuscitation: No Chest Compression * Full Code Date Activated Date Inactivated Comments 11/06/2024 7:05 AM 11/06/2024 3:27 PM * LIMITED RESUSCITATION-PRIOR AND AFTER ARREST Date Activated Date Inactivated Comments 11/02/2024 1:49 AM 11/06/2024 7:04 AM Question Answer Comments Limited Resuscitation: No Chest Compress ionNo Intubation, No Invasive Ventilation * Full Code Date Activated Date Inactivated Comments 11/01/2024 10:35 PM 11/02/2024 1:48 AM Care Teams [employer] E[employer] Specialist Relationship Specialty Start Date End Date Regis Barros DO [address] [place] [id number] PCP - General Family Medicine 11/18/24
--- OUTSIDE RECORDS SUMMARY | 2024-11-20 13:59 | XMS_ITS | Encounter Summary ---
Author Organization [facility] Address [address] [place] [address] Care Team Providers Care Med Care Manager Name Role Phone VicenteRegis cummins Primary Care Provider [phone] Encounter Details Date Type Department Care Team (Latest Contact Info) Description 11/20/2024 Travel Social History Tobacco Use Types Packs/Day Years [...] and heating? Not hard at all 11/01/2024 [facility] [place] [facility] - Occupational Stress [...] any time in the past 12 m [facility], were you homeless or living in a fci (including now)? No 11/01/2024 Sex and Gender Information Value Date Recorded Sex Assigned at Not on file Legal Sex Male 10:11 AM CDT Gender Identity Not on file Sexual Orientation Not on file documented as of this encounter Functional Status * Is person deaf or have serious hearing difficulty? Answer Date of Assessment Author No 11/17/2024 12:16 PM MAMTAT Livia Talavera RN * Is person blind or have serious difficulty seeing? Answer Date of Assessment Author No 11/17/2024 12:16 PM CDT Livia Talavera RN * Does person have serious difficulty walking/climbing stairs? Answer Date of Assessment Author No 11/17/2024 12:16 PM MAMTAT Livia Talavera RN * Does person have difficulty dressing/bathing? Answer Date of Assessment Author No 11/17/2024 12:16 PM Livia Topete RN * Does person have difficulty doing errands alone? Answer Date of Assessment Author No 11/17/2024 12:16 PM MAMTAT Livia Talavera RN documented as of this encounter Mental Status * Does person have difficulty concentrating/remembering/making decisions? Answer Entry Date Author No 11/17/2024 12:16 PM Livia Topete RN documented in this encounter Plan of Treatment Upcoming Encounters Date Type Department Care Team (Late st Contact Info) Description 11/23/2024 10:30 AM CDT Office Visit Transitional Care at [address] [id number] documented as of this encounter Visit Diagnoses Not on filedocumented in this encounter Care Teams Med Care Manager Relationship Specialty Start Date End Date Regis Barros DO [address] [place], [place] [id number] PCP - General Family Medicine 11/18/24 documented as of this encounter
--- OUTSIDE RECORDS SUMMARY | 2024-11-20 13:59 | XMS_ITS | Encounter Summary ---
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 Role Phone Regis Barros DO Primary Care Provider [phone] Reason for Referral * Consultation (Urgent) - Closed Specialty Diagnoses / Procedures Referred By Rosa snider Referred To Contact Transitional Care Diagnoses Cardiogenic shock (HCC) KASEY (acute kidney injury) Heart failure with reduced ejection fraction (HCC) Insomnia, unspecified type Hyponatremia CAD, multiple vessel Hypomagnesemia Hypotension, unspecified hypotension type Hugo De La Cruz APRN-CNP [address] [place] [address] Phone: tel: fax: Transitional Care at [facility] [address] [place] [phone] Phone: tel: fax: Referral ID Status Reason Start Date Expiration Date V isits Requested Visits Authorized [id number] Closed Specialty Services Required 11/19/2024 11/19/2025 1 1 Scheduling Instructions Patient needs blood drawn & VS checked WITHIN 4 days of discharge (please schedule appt latest 11/22 or 11/23). Thanks! * RPM Remote Patient Monitoring (Routine) - Pending Review Specialty Diagnoses / Procedures Referred By Rosa snider Referred To Contact Remote Patient Monitoring Diagnoses Heart failure with reduced ejection fraction (HCC) Hugo De La Cruz APRN-CNP [address] [place] [address] Phone: tel: fax: [facility] - Remote Patient Monitoring [address] [place] [phone] Phone: tel: fax: Referral ID Status Reason Start Date Expiration Date Visits Requested Visits Authorized [id number] Pending Review Specialty Services Required 11/19/2024 11/19/[phone] * Evaluate & Treat (Routine) - Pending Review Specialty Diagnoses / Procedures Referred By Contac t Referred To Contact Cardiology Diagnoses Elevated troponin Cardiogenic shock (HCC) Kiersten Sultana MD [address] [place] [address] Phone: tel: fax: Raulito Santos MD [address] [facility] [address] [place] [address] Phone: tel: fax: Referral ID Status Reason Start Date Expiration Date Visits Requested Visits Authorized [id number] Pending Review Discharge Follow-up 11/19/2024 11/19/2025 1 1 * (Routine) - Pending Review Specialty Diagnoses / Procedures Referred By Contac t Referred To Contact Cardiac Rehab Diagnoses Heart failure with reduced ejection fraction (HCC) Procedures Referral to Cardiac Rehab Phase II Raoul Ga DO [address] [facility] [address] [place] [address] Phone: tel: fax: Referral ID Status Reason Start Date Expiration Date V isits Requested Visits Authorized [id number] Pending Review 11/17/2024 11/17/2025 1 1 * Consultation (Routine) - Pending Review Specialty Diagnoses / Procedures Referred By Rosa snider Referred To Contact Psychiatry Diagnoses Insomnia, unspecified type Depression, unspecified depression type Hugo De La Cruz APRN-CNP [address] [place] [address] Phone: tel: fax: Referral ID Status Reason Start Date Expiration Date Visits Requested Visits Authorized [id number] Pending Review Specialty Services Required 11/19/2024 11/19/2025 1 1 * Home Health Care (Routine) - Pending Review Specialty Diagnoses / Procedures Referred By Rosa snider Referred To Contact Home Health Services Diagnoses Hepatic trauma, initial encounter Leukocytosis, unspecified type Heart failure with reduced ejection fraction (HCC) Joel Cao III, MD [address] [place] [address] Phone: tel: fax: Referral ID Status Reason Start Date Expiration Date Visits Requested Visits Authorized [id number] Pending Review Specialty Services Required 11/09/2024 11/09/2025 999 999 Reason for Visit * Auth/Cert (Routine) Specialty Diagnoses / Procedures Referred By Rosa snider Referred To Contact Diagnoses Acute liver injury Referral ID Status Reason Start Date Expiration Date Visits Re quested Visits Authorized [id number] 1 1 Encounter Details Date Type Department Care Team (Latest Contact Info) Description 11/01/2024 9:26 PM CDT - 11/19/2024 2:25 PM CDT Hospital Encounter [facility] 8N ACUTE [address] [place] [address] Edgard Guajardo MD [address] [place] [address] [address] [facility] [phone] Lamberto Singh MD [address] [place] [address] [address] DIV OF PULMONARY[facility] [address] Deann Stephens MD [address] [facility] 2L DIV OF [facility] [place] [address] Joel Cao III, MD [address] [place] [address] Raoul Ga DO [address] [place] [address] Kiersten Sultana MD [address] [place] [address] Gastroenterology Discharge Disposition: Home or Self Care Social History Tobacco Use Types Packs/Day [...] and heating? Not hard at all 11/01/2024 [facility] [place] [facility] - Occupational Stress [...] any time in the past 12 m [facility], were you homeless or living in a fdc (including now)? No 11/01/2024 Sex and Gender Information Value Date Recorded Sex Assigned at Not on file Legal Sex Male 10:11 AM CDT Gender Identity Not on file Sexual Orientation Not on file documented as of this encounter Last Filed Vital Signs Vital Sign Reading [...] Mass Index 23.27 11/01/2024 10:00 PM CDT documented in this encounter Functional Status * Question Answer Date of Assessment Author Q1: How often do you have a drink containing alcohol? Monthly or less 11/01/2024 11:00 PM CDT Steven Phelan RN Q2: How many drinks containing alcohol do you have on a typical day when you are drinking? Patient does not drink 11/01/2024 11:00 PM CDT Steven Phelan RN Q3: How often do you have six or more drinks on one occasion? Never 11/01/2024 11:00 PM CDT Steven Phelan RN * Audit-C Score Answer Date of Assessment Author 1 11/01/2024 11:00 PM CDT Steven Phelan RN * Is person deaf or have serious [...] Livia Topete RN documented in this encounter Discharge Summaries * Hugo De La CruzSUZI-WALLPAPERER - 11/19/2024 12:42 PM CDT Images from the original note were not included. [facility] Discharge Summary Name: Gabino Ocampo Room/Bed: [facility]/ : 1950 74 year old PCP: Regis Barros DO Admit Date/Time: 11/01/2024 9:26 PM LOS: 18 Date of discharge: 11/19/2024 Code status at time of discharge: Full Code Discharge Diagnosis Hepatic trauma, initial encounter (POA: Unknown) Other specified anemias (POA: Unknown) Urinary retention (POA: Unknown) Heart failure with reduced ejection fraction (HCC) (POA: Unknown) Cardiogenic shock (HCC) (POA: Unknown) Elevated troponin (POA: Unknown) Transaminitis (POA: Yes) Thrombocytopenia (POA: Unknown) Hyponatremia (POA: No) Depression (POA: No) Hyponatremia (POA: No) Insomnia (POA: No) CAD, multiple vessel (POA: Yes) Hypotension (POA: Unknown) Hypomagnesemia (POA: Unknown) Hospital Course Gabino Ocampo is a 74-year-old male with a PMHx of multi-vessel CAD (60% stenosis of proximal/mid LAD, 100% stenosis of right posterolateral descending branch of RCA, 50% stenosis of left main coronary artery, moderate left circumflex artery stenosis, ECG suggestive of inferior wall infarct), HFrEF (EF 26% with global LV wall hypokinesia). He presented to OSH on 10/30/2024 with the chief complaint of acute onset of chest pain, nausea, and vomiting. Of note, he presented with the same symptoms a week earlier on 10/23/2024 but left against medical advice. Reported chest pain was associated with dyspnea, nausea, and stomach pain. Labs were significant for AST >7000, ALT> 5800. Renal function tests were significant for pre-renal KASEY. A preliminarysuspicion of Acute Liver Failure secondary to cardiogenic shock (shock liver), especially in the setting of HFrEF d/t underlying CAD, complicated by pre-renal KASEY was made. The patient was transferred to [facility] on 11/01/2024 where his liver function tests were again remarkable for Acute Liver Injury (ALT 3970, AST 174), hyperbilirubinemia, hyperammonemia, & serum pseudohypocalcemia 2/2 hypoalbuminemia) with superimposed pre-renal KASEY (BUN 95, Cr 3.85, eGFR 15). He endorsed abdominal pain, shortness of breath, cough, and congestion. He denied alcohol use. Patient denied prior liver disease or illness in the past. His cardiac markers on the same day revealed Troponin 113 and BNP 847. Echo obtained d/t concerning physical symptoms and trop elevation further revealed EF 26% with moderately dilated LV, globally hypokinetic LV wall motion, and severely reduced systolic function. Dilated RV but with normal systolic function. Patient underwent cardiac catheterization. Cardiac MRI obtained and cardiothoracic surgery consulted to evaluation, no surgical intervention recommended. Patient was given IV Dobutamine to restore his cardiac function which in turn restored his hepatic perfusion and gradually his liver parameters returned to normal. Fluid resuscitation corrected his renal perfusion bringing his renal labortary parameters back to normal. On 11/17 patient underwent LHC & RHC w/ interventional cardiology, PCI to proximal mid RCA, mid & distal L main, and LAD. Post-procedure course was c/b hypotension on 11/18 requiring de-escalation and ultimately discontinuation of Entresto/ACEi/ARB (GDMT). BP stable after 500mL NS bolus. Hyponatremia improved w/ the NS bolus as well as fluid restriction. Electrolytes intermittently replaced. Patient discharged home 11/19/2024. See discharge instructions as well as discharge follow up information below. Problem List/Plan of Care at Time of Discharge Assessment & Plan Cardiogenic shock (HCC) Elevated troponin Heart failure with reduced ejection fraction (HCC) CAD, multiple vessel Hypotension s/p (11/17/24) LHC & RHC w/ PCI [...] 2.5mg oxy PRN, 2mg IVP morphine PRN Hyponatremia Hypomagnesemia Mild improvement w fluid restriction. Usom>480 Yaneth>95. [...] mag ox 400mg po daily at dc Hepatic trauma, initial encounter Transaminitis Ddx: shock liver vs acetaminophen toxicity vs autoimmune vs toxicity from supplements vs autoimmune Transaminases markedly elevated on admission but downtrending now Unclear baseline - no close PCP followup Ultrasound with no clear etiology for liver injury. No ascites. Trace fluid morrisons pouch. - MPO/PR3 autoantibodies negative - Liver-kidney microsomal antibody IgG negative - MEREDITH not detected - [id number] elevated at 254, but likely a result of recent transfusions - ceruloplasmin normal - F-Actin antibody IgG normal - mitochondrial M2 antibody normal - hepatitis panel normal - Improving with downtrending LFTs 11/16/2024 PLAN: --dc'd all OTC supplements IP Other specified anemias Thrombocytopenia Iron panel consistent with chronic disease PLAN: --hgb stable, continue to monitor --monitored platelet counts - remained stable Urinary retention Patient voiding without catheter. --bedside urinal --can restart external catheter PRN --cont tamsulosin 0.4mg daily Depression Voiced suicidal ideation on 11/09 but no plan, no homicidal ideation. No history of depression - current episode likely multifactorial: chronic life altering disease, loss of , loss of independence. Plan: --OP psychiatry referral (pt agreeable, ordered) Insomnia Melatonin & ambien 5mg are prescribed for sleep Nocturnal desaturation study completed on 11/14/2024. F/u OP w/ PCP, resulted with intermittent desaturations to high 80%s but patient reports he did not sleep well. > discussion w/ pt sounds more psychiatry-related / thinking overnight rather than structural, already planning for OP Psych referral as above, discussed counseling/talk therapy with patient and he is agreeable Follow-up Summary Future Appointments Sunday November 17, 2024 Card Rehab: Referral to Cardiac Rehab Phase II As directed Outpatient Referral: AMB REFERRAL TO PSYCHIATRY [facility] Medication Updates: GDMT: Metop Succ 25mg po daily, Spironolactone 12.5mg po daily, Jardiance 10mg po daily Unable to start Entresto/ACEi/ARB d/t hypotension (consider Losartan 25mg po daily when BP supportssafe initiation) Lasix 20mg PO daily PRN prescribed with parameters for when to take (see below), could not prescribe as scheduled d/t hypotension Mag-Ox supplement daily Aspirin 81mg po daily, Brilinta 90mg po BID, & Rosuvastatin 20mg po daily (high- intensity statin) for multivessel CAD s/p PCIs (11/17/2024) Post discharge follow up tasks/Incidental Findings: VERY important patient has blood drawn and vital signs checked within 4 days of discharge either with new PCP or [facility] CMP, Mag, Phos BP & HR Weight Img with c/f possible left renal cyst, should have outpatient CT urogram (PCP to coordinate) Referral placed for OP Psychiatry (SI, Depression, Insomnia) Physical therapy recs for home health (referral placed), OT cleared [facility]: backup in case patient's new PCP cannot get blood drawn & VS checked within 4 days of discharge Discharge Destination: Home. Discharge Medications Allergies[1] Medication List START taking these medications acetaminophen 500 MG tablet Commonly known as: Tylenol Take 1 (one) tablet by mouth every 6 hours as needed for Fever, Pain or Headache Maximum allowable Acetaminophen amount = 4 Grams (4000 mg) / 24 hours. aspirin 81 MG chew tablet Commonly known as: Aspirin Take 1 (one) tablet by mouth once daily (chew and swallow) Reasons: Carotid Artery Stenting, Ischemic Cardiomyopathy Start taking on: November 20, 2024 empagliflozin 10 MG tablet Commonly known as: Jardiance Take 1 (one) tablet by mouth once daily Reasons: Cardiac Failure Start taking on: November 20, 2024 magnesium oxide 400 MG tablet Commonly known as: Mag-Ox Take 1 (one) tablet by mouth once daily Reasons: Disorder with Low Magnesium Levels Start taking on: November 20, 2024 melatonin 3 MG tablet Take 2 (two) tablets by mouth at bedtime Reasons: Trouble Sleeping pantoprazole EC 40 MG tablet Commonly known as: Protonix Take 1 (one) tablet by mouth once daily Start taking on: November 20, 2024 polyethylene glycol 3350 17 g packet Commonly known as: Miralax Take 17 (seventeen) g by mouth once daily as needed for Constipation Reasons: Constipation rosuvastatin 20 MG tablet Commonly known as: Crestor Take 1 (one) tablet by mouth once daily Start taking on: November 20, 2024 Notes to patient: for coronary artery disease sennosides 8.6 MG tablet Commonly known as: Senokot Take 1 (one) tablet by mouth once daily as needed for Constipation spironolactone 25 MG tablet Commonly known as: Aldactone Take 0.5 (one-half) tablet by mouth once daily Start taking on: November 20, 2024 Notes to patient: for heart failure ticagrelor 90 MG tablet Commonly known as: Brilinta Take 1 (one) tablet by mouth 2 times daily Reasons: Coronary Artery Stent Present, Heart Artery Obstructed, Ischemic Cardiomyopathy CHANGE how you take these medications furosemide 20 MG tablet Commonly known as: Lasix Take 1 (one) tablet by mouth once daily as needed (take if developing edema, shortness of breath, or weight gain > 2 lbs) Reasons: Cardiac Failure, Edema What changed: medication strength how much to take when to take this reasons to take this CONTINUE taking these medications metoprolol succinate XL 24hr 25 MG tablet Commonly known as: Toprol XL Take 1 (one) tablet by mouth once daily Start taking on: November 20, 2024 Notes to patient: for heart failure tamsulosin 0.4 MG capsule Commonly known as: Flomax Notes to patient: for enlarged prostate STOP taking these medications lactulose 10 GM/15ML solution Commonly known as: Chronulac;Enulose metoprolol tartrate IR 25 MG tablet Commonly known as: Lopressor sodium bicarbonate 650 MG tablet torsemide 20 MG tablet Commonly known as: Demadex Where to Get Your Medications These medications were sent to [facility]/pharmacy #[id number] - [address] [facility] [address] [address] [facility] [address] aspirin 81 MG chew tablet empagliflozin 10 MG tablet furosemide 20 MG tablet metoprolol succinate XL 24hr 25 MG tablet pantoprazole EC 40 MG tablet rosuvastatin 20 MG tablet spironolactone 25 MG tablet ticagrelor 90 MG tablet You can get these medications from any pharmacy You don't need a prescription for these medications acetaminophen 500 MG tablet magnesium oxide 400 MG tablet melatonin 3 MG tablet polyethylene glycol 3350 17 g packet sennosides 8.6 MG tablet Physical Exam Recent Vitals: Temp: [97.6 ??F (36.4 ??C)-98.5 ??F (36.9 ??C)] 98 ??F (36.7 ??C) Pulse: [83-107] 107 Resp: [16-18] 18 BP: (85-113)/(59-79) 113/77 Weight change: 1.361 kg (3 lb) Intake/Output Summary (Last 24 hours) at 11/19/2024 1243 Last data filed at 11/19/2024 0800 Gross per 24 hour Intake 170 ml Output 150 ml Net 20 ml Physical Exam Vitals reviewed. Constitutional: General: He is not in acute distress. Elderly. Appearance: He is not toxic-appearing or diaphoretic. HENT: Head: Atraumatic. Eyes: General: No scleral icterus. Right eye: No discharge. Left eye: No discharge. Extraocular Movements: Extraocular movements intact. Pupils: Pupils are equal, round, and reactive to light. Neck: Comments: Freely moving Cardiovascular: Rate and Rhythm: Normal rate and regular rhythm. Heart sounds: No murmur heard. No friction rub. No gallop. Pulmonary: Effort: Pulmonary effort is normal. No respiratory distress. Breath sounds: Normal breath sounds. Comments: Room air Abdominal: General: Bowel sounds are normal. Palpations: Abdomen is soft. Tenderness: There is no guarding. Musculoskeletal: Right lower leg: No edema. Left lower leg: No edema. Skin: General: Skin is warm and dry. Coloration: Skin is not jaundiced. Neurological: General: No focal deficit present. Mental Status: He is alert and oriented to person, place, and time. Motor: Weakness present. Psychiatric: Thought Content: Thought content normal. Radiology ECHO COMPLETE Result Date: 11/02/2024 Summary * The left ventricle is moderately dilated, with severely reduced systolic function and an estimated ejection fraction of 26 % by biplane method of disks. Left ventricular wall motion is globally hypokinetic. * Right ventricle is dilated with normal systolic function. * No hemodynamically si gnificant valve disease. * The aortic root at [...] 4:36 PM Patient Status: I/P Study Site: [facility] Primary Location: [facility] EStudy Info Technical Quality: Fair Exam Type: [...] Provider: Lamberto Singh Attending Physician: Lamberto Singh Transfer Knitter: Jose Nava Left Ventricle Left ventricular systolic [...] visualized, but appears dilated. Right Atrium The rightatrium is not well visualized, but appears grossly [...] Left Ventricular Outflow Tract Name Value Normal ------ LVOT 2D LVOT Diameter2.3 cm LVOT Area 4.1 cm2 LVOT Doppler [...] 2.8-4.0 Sinus of Valsalva Index 2.0 cm/m2 1.3- 2.1 Asc Ao Diameter 4.0 cm 2.2-3.8 Asc Ao Diameter Index 2.1 cm/m2 1.1-1.9 Aortic Valve --------- Name Value Normal AV 2D/MM AV Cusp Sep (MM) 2.0 cm AV Doppler AV Peak Velocity 2.02 m/s AV Peak Gradient 9 mmHg AV Mean Gradient 5 mmHg AV VTI 26 cm AV Area (Cont Eq VTI) 1.83 cm2 >=2.00 AV Area (Cont Eq Jermaine) 1.76 cm2 AV DI (VTI) 0.45 AV DI (Jermaine) 0.43 AV Regurgitation 2D LVOT Area 4.08 [...] 30 % 52-72 LV Diastolic Volume (4C MOD)190 ml LV EF (4C MOD) 22 % [...] Stroke Volume (4C MOD) 41 ml Atria --- Name Value Normal LA Dimensions LA Dimension (2D) 3.5 cm 3.0-4.1 LA Dimen Index (2D) 1.9 cm/m2 Report Signatures Finalized by Tracey Anderson on 11/02/2024 06:41 PM US Abdomen Ltd W Comp Doppler Result Date: 11/02/2024 PROCEDURE: US ABDOMEN LTD W COMP DOPPLER, DATE/TIME OF EXAM: 11/02/2024 9:48 AM, LOCATION [facility] INDICATION: S36.119A: Hepatic trauma, initial encounter [...] pouch Report dictated by Zachary Rushing MD (Animal Humane Agent Supervisor) IZan MD have personally reviewed and interpreted this examination/study. > Interpreting Provider: Zan Cortes MD on 11/02/2024 1:40 PM XR Chest 1Vw Portable Result Date: 11/02/2024 PROCEDURE: XR CHEST 1VW PORTABLE DATE/TIME [...] Taisha Seymour MD on 11/02/2024 12:55 PM XR Abdomen Kub Portable Result Date: 11/02/2024 PROCEDURE: XR ABDOMEN KUB PORTABLE DATE/TIME OF EXAM: 11/02/2024 9:57 AM CLINICAL INFORMATION: None relevant/not provided if blank. Indication: S36.119A: Hepatic trauma, initial encounter Additional History: COMPARISON: None. IMPRESSION: Mild mildly dilated small bowel loops measuring up to 4 cm. Gas is identified in the distal colon and rectum. Findings may represent ileus or low- grade obstruction. Mild to moderate left predominant colonic stool volume. Mild left basilar atelectasis/airspace disease. Cardiomegaly. >Interpreting Provider: Taisha Seymour MD on 11/02/2024 12:[address] Head Wo Contrast Result Date: 11/01/2024 EXAM: CT HEAD WO CONTRAST DATE: 11/01/2024 HISTORY: Acute congestive heart failure, unspecified heart failure type (CMS/HCC); Mental status change, unknown cause COMPARISON: None. TECHNIQUE: Multislice axial. Radiation dose reduction technique was utilized. FINDINGS: There is no evidence of intracranial mass- effect, hemorrhage, or acute hydrocephalus. The sulci are prominent and the ventricles aresymmetrically dilated indicative of volume loss. Hypodensities in the periventricular white matter are consistent with ischemic small vessel disease. The third and fourth ventricles are in the midline. There are no acute brain parenchymal changes or extra-axial fluid collections. The posterior fossa contents are unremarkable. The calvarium is intact. The visualized sinuses and mastoid air cells are not opacified. IMPRESSION: 1. No acute intracranial process. 2. Volume loss and small vessel disease. DICTATION LOCATION: [address] XR Chest 1Vw Result Date: 11/01/2024 CHEST PORTABLE AP UPRIGHT VIEW DATE: 11/01/2024 5:42 AM HISTORY: Infiltrate COMPARISON: October 30, 2024 FINDINGS: Examination of the chest in anteroposterior projection in the upright position at the patient's bedside reveals cardiomegaly. The aorta is tortuous and calcified. Pulmonary vascular congestion is present. Pulmonary vascular congestion is increased. A nodular density in the right lung measuring 14 mm is unchanged. Small nodular densities are present in the left lung. INCIDENTAL FINDINGS: None. IMPRESSION: Bilateral pulmonary nodules are not clearly changed Cardiomegaly and pulmonary vascularcongestion Tortuous calcified aortic arch. DICTATION LOCATION: Location [address] [place] [address] Labs Laboratory Data Recent Labs Component Name 11/18/24 0147 11/16/24 0253 11/15/24 0216 WBC 9.4 6.8 7.0 HGB 10.1* 10.3* 10.1* HCT 30.9* 31.7* 30.8* PLTCOUNT 260 233 228 MCV 89.0 90.8 89.5 Recent Labs Component Name 11/16/24 0253 11/15/24 0216 11/14/24 0114 PT 14.5 15.1* 14.0 INR 1.2 1.2 1.1 Recent Labs Component Name 11/19/24 0113 11/18/24 2041 11/18/24 1409 11/18/24 0147 NA 130* 130* 128* 129* POTASSIUM 3.9 - 4.3 3.7 CL 101 - 101 99 CO2 23 - 22 23 BUN 13 - 13 12 CREATININE 0.77 - 0.73 0.72 Recent Labs Component Name 11/19/24 0113 11/18/24 1409 11/18/24 0147 11/17/24 0318 CALCIUM 7.3* 7.4* 7.7* 7.5* PHOS 2.3* - 3.2 3.5 Recent Labs Component Name 11/19/24 0113 11/18/24 0147 11/17/24 0318 11/16/24 0253 11/15/24 0216 11/14/24 0114 PROT - - - 4.9* 4.9* 5.5* ALB 2.3* 2.4* 2.3* 2.4* 2.2* 2.5* ALKPHOS - - - 114 105 126 AST - - - 33 32 46* ALT - - - 66* 74* 101* TBILI - - - 0.6 0.6 0.8 No results for input(s): CKTOTAL, CKMBCK2, TROPONINI in the last 28762 hours. No results for input(s): [facility] in the last 13533 hours. Microbiology Results (Displays last 21 days for this encounter ONLY) Procedure Component Value - Date/Time CULTURE BLOOD [[id number]] (Normal) Collected: 11/02/241758 Lab Status: Final result Specimen: Blood from [facility] Peripheral 1 Updated: 11/07/24 2332 Culture No growth day 5 CULTURE BLOOD [[id number]] (Normal) Collected: 11/02/24 175 Lab Status: Final result Specimen: Blood from [facility] Peripheral 2 Updated: 11/07/24 2332 Culture No growth day 5 RESPIRATORY PANEL WITH SARS-COV-2 BY PCR ([facility]) [[id number]] (Normal) Collected: 11/02/24 0818 Lab Status: Final result Specimen: Microbiology from Nasopharyngeal Updated: 11/02/24 1624 Adenovirus PCR Not detected Coronavirus 229E PCR Not detected Coronavirus HKU1 PCR Not detected Coronavirus NL63 PCR Not detected Coronavirus OC43 PCR Not detected COVID-19 PCR Not detected Human Metapneumovirus PCR Not detected Human Rhinovirus/Enterovirus PCR Not detected Influenza A PCR Not detected Influenza B PCR Not detected Parainfluenza Virus 1 PCR Not detected Parainfluenza Virus 2 PCR Not detected Parainfluenza Virus 3 PCR Not detected Parainfluenza Virus 4 PCR Not detected Respiratory Syncytial Virus PCR Not detected Bordetella parapertussis PCR Not detected Bordetella pertussis PCR Not detected Chlamydia pneumoniae PCR Not detected Mycoplasma pneumoniae PCR Not detected Narrative: This nucleic amplification assay has received FDA authorization via the [employer]. Patient Discharge Instructions Discharge Instructions [facility] Discharge Instructions You were admitted to [facility] as a transfer from another hospital for cardiogenic shock which caused significant acute liver and kidney injuries/failures. Your liver and kidney injuries have improved/resolved, which is good news. While you were here at the hospital: You required intermittent electrolyte replacements, you have been discharged with some recommended daily electrolyte tablets (magnesium). You had a cardiac cath on 11/17/2024 with intervention (stents placed to mid- RCA, mid and distal left main, and proximal to mid-LAD), while this is significant the cardiologists said it went well! See below for cardiac-specific information. It is VERY important you follow up closely after dischargewith both your new primary care and cardiologists. You were diagnosed with heart failure, your ejection fraction is 26%. Briefly, this is the percent your heart is functioning. Heart failure does not go away, but as we discussed - with proper follow up and medications the heart function can be preserved and possibly restore a small amount of function. You were placed on a fluid restriction of 1,600mL daily for your new diagnosis of heart failure andalso for your low sodium level (hyponatremia). Your condition improved and we believe you are ready for discharge from the hospital. To continue to care for your condition we recommend the following: A referral was placed for psychiatry (depression, difficulty sleeping). Your primary care provider should schedule a CT Urogram for you, one of your images while showed a possible left renal cyst. This test requires contrast dye and we did not feel it urgent enough to dowhile here in the hospital - especially since you had the acute kidney injury when you arrived, andcontrast dye can further cause kidney injury if they are not functioning properly. The test could wait until your kidneys are functioning normally. Physical therapy recommended home health, a referral order was placed. See below for cardiac/heart-specific information. CONCERNING SYMPTOMS: When to call your healthcare provider: Call your healthcare provider immediately if you have any of the following: - Fever of 100.4??F (38??C) or higher/shaking chills. - Chest Pain that is new/different or does not go away with your normal medicines. - Shortness of Breath/Trouble Breathing that is new and/or does not go away with your normal medicines. - Feeling that your heart is racing. - Trouble talking. - Unusual rashes/sores. - Nausea and vomiting that won't go away/You can't keep food or water in your body. - Light headedness/Dizziness. - New/worsening confusion. - Leg swelling from fluid build up (edema). If you are unable to reach your primary provider or these symptoms are severe, please go to the nearest emergency room or call EMS ([phone]). FOLLOW-UP: Information about your future appointments is listed above. Please make sure you go to all upcoming appointments. If there is a conflict or your needs change, please call the clinic ahead of time and reschedule the appointment. As discussed, I placed a [facility] referral order for you just in case your PCP cannot draw your bloodwork and take your blood pressure & heart rate in the next 4 days (by Wednesday/). [facility] is here at [facility] ([facility]). If you need further information, or you need to reschedule any appointments, you can call the scheduling department at the following numbers: [phone] for Tests/Procedures [phone] for Appointments Please follow up with your primary care provider (PCP) by 11/23/2024. If a follow- up with your PCP has not been scheduled, you need to schedule an appointment to follow-up on your hospitalization. As discussed, you should call the primary care office and request they get you in for a blood draw &vital sign check prior to your scheduled appointment. It was a privilege to participate in your care and we wish you good health moving forward! Cardiology Follow-Up & Hospital Discharge Information Follow-up in [address] Raulito Santos MD Address: [address] [place] [address] Office Referrals have been placed for remote-patient monitoring as well as outpatient cardiac rehab. Theseprograms (if you qualify) are to help monitor your heart failure, vital signs (blood pressure, heart rate), and try to preserve the remaining heart function - if not get a little improvement. You will need to measure your weight daily, this should be done at the same time every day for consistency. Many people do it first thing every morning. Keep a log of your daily weights, blood pressures, heart rates - bring this log to your primary care and cardiology appointments. Continue your fluid restriction of 1,600mLs (1.6 liters) of free water per day. Try to alternate with electrolyte drinks (gatorade, electrolyte mix-in packets) Your blood pressure dropped with any blood pressure medications, so your future providers should beVERY cautious of starting any blood pressure medications. Indications to take as-needed furosemide (Lasix): -If your weight is up by 2lbs -If you develop leg swelling (edema) -If you develop worsening shortness of breath and inability to lie flat without feeling like you are drowning I spent 75 minutes in addition to direct patient care summarizing this patient's hospital stay, reviewing and updating the inpatient problem list, reviewing discharge medications, instructions, discussing discharge care planand discharge follow up labs/studies/doctor visits with the patient and or POA/family. ANTW[facility] 11/19/2024 12:43 PM [1] No Known Allergies Cosigned by Kiersten Sultana MD at 11/19/2024 3:23 PM CDT documented in this encounter Discharge Instructions * Discharge Instructions* Hugo De La Cruz APRN-CNP - 11/19/2024 11:18 AM CDT Images from the original note were not included. [facility] Discharge Instructions You were admitted to [facility] as a transfer from another hospital for cardiogenic shock which caused significant acute liver and kidney injuries/failures. Your liver and kidney injuries have improved/resolved, which is good news. While you were here at the hospital: You required intermittent electrolyte replacements, you have been discharged with some recommended daily electrolyte tablets (magnesium). You had a cardiac cath on 11/17/2024 with intervention (stents placed to mid- RCA, mid and distal left main, and proximal to mid-LAD), while this is significant the cardiologists said it went well! See below for cardiac-specific information. It is VERY important you follow up closely after dischargewith both your new primary care and cardiologists. You were diagnosed with heart failure, your ejection fraction is 26%. Briefly, this is the percent your heart is functioning. Heart failure does not go away, but as we discussed - with proper follow up and medications the heart function can be preserved and possibly restore a small amount of function. You were placed on a fluid restriction of 1,600mL daily for your new diagnosis of heart failure andalso for your low sodium level (hyponatremia). Your condition improved and we believe you are ready for discharge from the hospital. To continue to care for your condition we recommend the following: A referral was placed for psychiatry (depression, difficulty sleeping). Your primary care provider should schedule a CT Urogram for you, one of your images while showed a possible left renal cyst. This test requires contrast dye and we did not feel it urgent enough to dowhile here in the hospital - especially since you had the acute kidney injury when you arrived, andcontrast dye can further cause kidney injury if they are not functioning properly. The test could wait until your kidneys are functioning normally. Physical therapy recommended home health, a referral order was placed. See below for cardiac/heart-specific information. CONCERNING SYMPTOMS: When to call your healthcare provider: Call your healthcare provider immediately if you have any of the following: - Fever of 100.4??F (38??C) or higher/shaking chills. - Chest Pain that is new/different or does not go away with your normal medicines. - Shortness of Breath/Trouble Breathing that is new and/or does not go away with your normal medicines. - Feeling that your heart is racing. - Trouble talking. - Unusual rashes/sores. - Nausea and vomiting that won't go away/You can't keep food or water in your body. - Light headedness/Dizziness. - New/worsening confusion. - Leg swelling from fluid build up (edema). If you are unable to reach your primary provider or these symptoms are severe, please go to the nearest emergency room or call EMS ([phone]). FOLLOW-UP: Information about your future appointments is listed above. Please make sure you go to all upcoming appointments. If there is a conflict or your needs change, please call the clinic ahead of time and reschedule the appointment. As discussed, I placed a [facility] referral order for you just in case your PCP cannot draw your bloodwork and take your blood pressure & heart rate in the next 4 days (by Wednesday/). [facility] is here at [facility] ([facility]). If you need further information, or you need to reschedule any appointments, you can call the scheduling department at the following numbers: [phone] for Tests/Procedures [phone] for Appointments Please follow up with your primary care provider (PCP) by 11/23/2024. If a follow- up with your PCP has not been scheduled, you need to schedule an appointment to follow-up on your hospitalization. As discussed, you should call the primary care office and request they get you in for a blood draw &vital sign check prior to your scheduled appointment. It was a privilege to participate in your care and we wish you good health moving forward! Cardiology Follow-Up & Hospital Discharge Information Follow-up in [address] Raulito Santos MD Address: [facility] [address] Office Referrals have been placed for remote-patient monitoring as well as outpatient cardiac rehab. Theseprograms (if you qualify) are to help monitor your heart failure, vital signs (blood pressure, heart rate), and try to preserve the remaining heart function - if not get a little improvement. You will need to measure your weight daily, this should be done at the same time every day for consistency. Many people do it first thing every morning. Keep a log of your daily weights, blood pressures, heart rates - bring this log to your primary care and cardiology appointments. Continue your fluid restriction of 1,600mLs (1.6 liters) of free water per day. Try to alternate with electrolyte drinks (gatorade, electrolyte mix-in packets) Your blood pressure dropped with any blood pressure medications, so your future providers should beVERY cautious of starting any blood pressure medications. Indications to take as-needed furosemide (Lasix): -If your weight is up by 2lbs -If you develop leg swelling (edema) -If you develop worsening shortness of breath and inability to lie flat without feeling like you are drowning documented in this encounter Medications at Time of Discharge acetaminophen (Tylenol) 500 MG tablet Take 1 (one) tablet by mouth every 6 hours as needed for Fever, Pain or Headache Maximum allowable Acetaminophen amount = 4 Grams (4000 mg) / 24 hours. 5 aspirin (Aspirin) 81 MG chew tabletIndications:C arotid Artery Stenting,Ischemic Cardiomyopathy Take 1 (one) tablet by mouth once daily (chew and swallow) Reasons: Carotid Artery Stenting, Ischemic Cardiomyopathy 30 tablet 1 5 empagliflozin (Jardiance) 10 MG tabletIndications:H eart Failure Take 1 (one) tablet by mouth once daily Reasons: Cardiac Failure 30 tablet 1 5 furosemide (Lasix) 20 MG tabletIndications:E prince,Heart Failure Take 1 (one) tablet by mouth once daily as needed (take if developing edema, shortness of breath, or weight gain > 2 lbs) Reasons: Cardiac Failure, Edema 30 tablet 1 5 magnesium oxide (Mag-Ox) 400 MG tabletIndications:H ypomagnesemia Take 1 (one) tablet by mouth once daily Reasons: Disorder with Low Magnesium Levels 5 melatonin 3 MG tabletIndications:I nsomnia Take 2 (two) tablets by mouth at bedtime Reasons: Trouble Sleeping 5 metoprolol succinate XL 24hr (Toprol XL) 25 MG tablet Take 1 (one) tablet by mouth once daily 30 tablet 1 5 pantoprazole EC (Protonix) 40 MG tablet Take 1 (one) tablet by mouth once daily 30 tablet 1 5 polyethylene glycol 3350 (Miralax) 17 g packetIndications:C onstipation Take 17 (seventeen) g by mouth once daily as needed for Constipation Reasons: Constipation 5 rosuvastatin (Crestor) 20 MG tablet Take 1 (one) tablet by mouth once daily 30 tablet 1 5 senna (Senokot) 8.6 MG tablet Take 1 (one) tablet by mouth once daily as needed for Constipation 5 spironolactone (Aldactone) 25 MG tablet Take 0.5 (one-half) tablet by mouth once daily 30 tablet 5 tamsulosin (Flomax) 0.4 MG capsule Take 1 (one) capsule by mouth once daily 5 ticagrelor (Brilinta) 90 MG tabletIndications:I schemic Cardiomyopathy,Obst ructive Coronary Artery Disease,Presence of Coronary Artery Stent Take 1 (one) tablet by mouth 2 times daily Reasons: Coronary Artery Stent Present, Heart Artery Obstructed, Ischemic Cardiomyopathy 60 tablet 1 5 documented as of this encounter Progress Notes * Hugo De La CruzSUZI-WALLPAPERER - 11/18/2024 3:20 PM CDT Images from the original note were not included. [facility] Internal Medicine Progress Note Name: Gabino Ocampo Room/Bed: [facility]/ : 1950 74 year old PCP: No primary care provider on file. Admit Date/Time: 11/01/2024 9:26 PM LOS: 17 Subjective Interval History: Seen awake and alert up in recliner, breathing RA in NAD. Denies acute/new complaints at this time from prior medical notes. Wants to discharge home today but not medically safe today. Hypotensive today, given NS bolus. Supplement lytes. Hospital Course: Mr. Gabino Ocampo is a 74-year-old male with a PMHx of multi-vessel CAD (60% stenosis of proximal/mid LAD, 100% stenosis of right posterolateral descending branch of RCA, 50% stenosis of left maincoronary artery, moderate left circumflex artery stenosis, ECG suggestive of inferior wall infarct), HFrEF (EF 26% with global LV wall hypokinesia). He presented to OSH on 10/30/2024 with the chief complaint of acute onset of chest pain, nausea, and vomiting. Of note, he presented with the same symptoms a week earlier on 10/23/2024 but left against medical advice. Reported chest pain was associated with dyspnea, nausea, and stomach pain. Labs were significant for AST >7000, ALT> 5800. Renal function tests were significant for pre-renal KASEY. A preliminarysuspicion of Acute Liver Failure secondary to cardiogenic shock (shock liver), especially in the setting of HFrEF d/t underlying CAD, complicated by pre-renal KASEY was made. The patient was transferred to [facility] on 11/01/2024 where his liver function tests were again remarkable for Acute Liver Injury (ALT 3970, AST 174), hyperbilirubinemia, hyperammonemia, & serum pseudohypocalcemia 2/2 hypoalbuminemia) with superimposed pre-renal KASEY (BUN 95, Cr 3.85, eGFR 15). He endorsed abdominal pain, shortness of breath, cough, and congestion. He denied alcohol use. Patient denied prior liver disease or illness in the past. His cardiac markers on the same day revealed Troponin 113 and BNP 847. Echo obtained d/t concerning physical symptoms and trop elevation further revealed EF 26% with moderately dilated LV, globally hypokinetic LV wall motion, and severely reduced systolic function. Dilated RV but with normal systolic function. Patient underwent cardiac catheterization. Cardiac MRI obtained and cardiothoracic surgery consulted to evaluation, no surgical intervention recommended. Patient was given IV Dobutamine to restore his cardiac function which in turn restored his hepatic perfusion and gradually his liver parameters returned to normal. Fluid resuscitation corrected his renal perfusion bringing his renal labortary parameters back to normal. On 11/17 patient underwent LHC & RHC w/ interventional cardiology, PCI to proximal mid RCA, mid& distal L main, and LAD. Objective Wt Readings from Last 3 Encounters: 11/18/24 64 kg (141 lb 3.2 oz) Vitals: Temp: [98 ??F (36.7 ??C)-99.3 ??F (37.4 ??C)] 98 ??F (36.7 ??C) Pulse: [83-105] 83 Resp: [12-18] 18 BP: (68-122)/(48-83) 85/60 Weight change: Intake/Output Summary (Last 24 hours) at 11/18/2024 1520 Last data filed at 11/18/2024 1033 Gross per 24 hour Intake 390 ml Output 740 ml Net -350 ml Physical Exam Vitals reviewed. Constitutional: General: He is not in acute distress. Appearance: He is not toxic-appearing or diaphoretic. HENT: Head: Atraumatic. Eyes: General: No scleral icterus. Right eye: No discharge. Left eye: No discharge. Extraocular Movements: Extraocular movements intact. Pupils: Pupils are equal, round, and reactive to light. Neck: Comments: Freely moving Cardiovascular: Rate and Rhythm: Normal rate and regular rhythm. Heart sounds: No murmur heard. No friction rub. No gallop. Pulmonary: Effort: Pulmonary effort is normal. No respiratory distress. Breath sounds: Normal breath sounds. Comments: Room air Abdominal: General: Bowel sounds are normal. Palpations: Abdomen is soft. Tenderness: There is no guarding. Musculoskeletal: Right lower leg: No edema. Left lower leg: No edema. Skin: General: Skin is warm and dry. Coloration: Skin is not jaundiced. Comments: L groin heart cath insertion site afua briscoe C/D/I Neurological: General: No focal deficit present. Mental Status: He is alert and oriented to person, place, and time. Motor: Weakness present. Psychiatric: Thought Content: Thought content normal. Medications[1] Labs: CBC: Recent Labs Lab Units 11/18/2414611/16/243 11/15/24 0216 WBC x10E9/L 9.4 6.8 7.0 RBC x10E12/L 3.47* 3.49* 3.44* HGB g/dL 10.1* 10.3* 10.1* HCT % 30.9* 31.7* 30.8* BMP: Recent Labs Lab Units 11/18/24 1409 11/18/2414611/17/24317 NA mmol/L 128* 129* 132* CL mmol/L 101 99 104 CO2 mmol/L 22 23 21* BUN mg/dL 13 12 10 CREATININE mg/dL 0.73 0.72 0.84 CALCIUM mg/dL 7.4* 7.7* 7.5* Magnesium: Recent Labs Component Name 11/18/2414611/17/2431711/16/24 025 MAGNESIUM 1.5* 1.6 1.7 Phosphorus: Recent Labs Lab Units 11/18/24 01411/17/2431711/16/24 025 PHOS mg/dL 3.2 3.5 3.4 Coagulation: Recent Labs Lab Units 11/16/24 0253 11/15/24 0216 11/14/24 0114 PT Seconds 14.5 15.1* 14.0 INR 1.2 1.2 1.1 Endocrine: No results for input(s): TSH, A1C in the last 168 hours. LFTs: Recent Labs Lab Units 11/18/24 0147 11/17/24 0318 11/16/24 0253 11/15/24 0216 11/14/24 0114 AST U/L -- -- 33 32 46* ALT U/L -- -- 66* 74* 101* TBILI mg/dL -- -- 0.6 0.6 0.8 ALB g/dL 2.4* 2.3* 2.4* 2.2* 2.5* Micro: Microbiology Results (Displays last 21 days for this encounter ONLY) Procedure Component Value - Date/Time CULTURE BLOOD [[id number]] (Normal) Collected: 11/02/241758 Lab Status: Final result Specimen: Blood from BC Peripheral 1 Updated: 11/07/24 2332 Culture No growth day 5 CULTURE BLOOD [[id number]] (Normal) Collected: 11/02/241758 Lab Status: Final result Specimen: Blood from BC Peripheral 2 Updated: 11/07/24 2332 Culture No growth day 5 RESPIRATORY PANEL WITH SARS-COV-2 BY PCR ([facility]) [[id number]] (Normal) Collected: 11/02/24 0818 Lab Status: Final result Specimen: Microbiology from Nasopharyngeal Updated: 11/02/24 1624 Adenovirus PCR Not detected Coronavirus 229E PCR Not detected Coronavirus HKU1 PCR Not detected Coronavirus NL63 PCR Not detected Coronavirus OC43 PCR Not detected COVID-19 PCR Not detected Human Metapneumovirus PCR Not detected Human Rhinovirus/Enterovirus PCR Not detected Influenza A PCR Not detected Influenza B PCR Not detected Parainfluenza Virus 1 PCR Not detected Parainfluenza Virus 2 PCR Not detected Parainfluenza Virus 3 PCR Not detected Parainfluenza Virus 4 PCR Not detected Respiratory Syncytial Virus PCR Not detected Bordetella parapertussis PCR Not detected Bordetella pertussis PCR Not detected Chlamydia pneumoniae PCR Not detected Mycoplasma pneumoniae PCR Not detected Narrative: This nucleic amplification assay has received FDA authorization via the [employer] Path[employer]. Imaging: MRI Cardiac Study Wwo Contrast Result Date: 11/16/2024 Impression: PENDING MEASUREMENTS There is cardiomegaly with increased left ventricular volume. There is diffuse global hypokinesia and lateral wall is severely hypokinetic. There is no evidence of scar or necrosis or findings to suggest myocardial inflammation. No evidence of perfusion defects to suggest ischemic changes. Findings are most suggestive of dilated cardiomyopathy. Findings of mild tomoderate aortic regurgitation and mild mitral regurgitation as well as small patent foramen ovale. Findings suggestive of acute pulmonary edema. > Dictated by Froilan Doss MD (Animal Humane Agent Supervisor), 11/15/2024 11:17 AM. > Dictated by Animal Humane Agent Supervisor I, Reji Garrett MD have perso gabriella reviewed and interpreted this examination/study. > Interpreting Provider: Reji Garrett MD on 11/16/2024 7:[address] Chest w/o Contrast 11/08/2024 Impression: 1.Mild atherosclerotic calcification of the thoracic [...] further evaluation if not previously explored. > Interpreting Provider: Zan Cortes MD on 11/08/2024 10:51 PM Echocardiogram 11/02/2024 Summary * The left ventricle is [...] cm with an index of 2.1 cm/m2. Assessment and Plan Assessment & Plan Cardiogenic shock (HCC) Elevated troponin Heart failure with reduced ejection fraction (HCC) CAD, multiple vessel Hypotension s/p (11/17/24) LHC & RHC w/ PCI [...] for hypotension & hyponatremia --f/u OP cardiology Hyponatremia Mild improvement w fluid restriction. Usom>480 Yaneth>95. TSH WNL. Working ddx: heart failure/ low effective arterial blood volume vs CKD vs adrenal insufficiency vs SIADH Hypotonic/hypovolemic. PLAN: --cont holding lasix 20mg po daily --decrease fluid restrict to 1600 mL --obtain AM Cortisol w/ AM labs (11/19) --obtain repeat urine lytes & osmo (11/18) --start 2g salt tabl x2 days (not half-way in s/o HFrEF) --NS bolus as above (11/18) Hypomagnesemia --give 4g IV Mag (11/18, Mag level 1.5) --start mag ox 400mg po daily Hepatic trauma, initial encounter Transaminitis Ddx: shock liver vs acetaminophen toxicity vs autoimmune vs toxicity from supplements vs autoimmune Transaminases markedly elevated on admission but downtrending now Unclear baseline - no close PCP followup Ultrasound with no clear etiology for liver injury. No ascites. Trace fluid morrisons pouch. - MPO/PR3 autoantibodies negative - Liver-kidney microsomal antibody IgG negative - MEREDITH not detected - [id number] elevated at 254, but likely a result of recent transfusions - ceruloplasmin normal - F-Actin antibody IgG normal - mitochondrial M2 antibody normal - hepatitis panel normal - Improving with downtrending LFTs 11/16/2024 PLAN: --dc'd all OTC supplements IP --daily RFP Other specified anemias Thrombocytopenia Iron panel consistent with chronic disease PLAN: --hgb stable, continue to monitor --monitored platelet counts - remained stable Urinary retention Patient voiding without catheter. --bedside urinal --can restart external catheter PRN --cont tamsulosin 0.4mg daily Depression Voiced suicidal ideation on 11/09 but no plan, no homicidal ideation. No history of depression - current episode likely multifactorial: chronic life altering disease, loss of , loss of independence. Plan: --OP psychiatry referral (pt agreeable, ordered) Insomnia Melatonin & ambien 5mg are prescribed for sleep Nocturnal desaturation study completed on 11/14/2024. F/u OP w/ PCP, resulted with intermittent desaturations to high 80%s but patient reports he did not sleep well. > discussion w/ pt sounds more psychiatry-related / thinking overnight rather than structural, already planning for OP Psych referral as above, discussed counseling/talk therapy with patient and he is agreeable [facility] [place] Discharge Information Renal US (10/31/2024) w/ possible L renal cyst: consider OP urogram via PCP, new PCP appt 11/29 (Dr. Barros in [place], [place]) @ 09:15am OP Psych referral (ordered) Cardiology coordinating OP f/u appt Inpatient Checklist -LDA: PIV -Antibiotic end date: N/A -Consults: Cardiology, Interventional Cardiology, CTX -Diet: DIET CARDIAC -DVT Prophylaxis: ASA/Brilinta, SCDs -Code Status: Full Code (intubation OK) -Dispo: Cont inpt treatment. Hugo De La Cruz, TRINA, TREE INSPECTOR, DATA SPECIALIST-C [facility] ASCOM # [id number] (7a-5p) Non-urgent messages may be sent through [employer] Secure Chat Date of service: 11/18/2024 Attending Physician: Kiersten Sultana MD The total time spent was 65 minutes performing chart preparation, review of data and visit with thepatient, [id number]: I addressed a chronic illness with severe exacerbation/progression/side effect and/or an acute illness/injury that poses a threat to life or bodily functions (as documented above), [id number]: I reviewed the results of a unique test, ordered a unique test, or performed an assessment requiring an independent historian (as documented above), and 37698/05203: I discussed the management of the patient and/or the interpretation of a test with a qualified medical profession such as the pharmacist, care coordination team and/or all relevant consultants. [1] Current Facility-Administered Medications Medication Dose Route Frequency Provider Last Rate Last Admin 0.9% NaCl injection 3 mL 3 mL Intracatheter q8h Mimi Mercado DO 3 mL at 11/18/24 0524 And 0.9% NaCl injection 1-10 mL 1-10 mL Intracatheter PRN Mimi Mercado DO acetaminophen (Tylenol) tablet 500 mg 500 mg Oral q6h PRN Hugo De La Cruz APRN-CNP artificial tears ophthalmic solution 1 drop 1 drop Each Eye TID PRN Hugo De La Cruz APRN-CNP 1 drop at 11/15/24 0857 aspirin chew tablet 81 mg 81 mg Oral QDAY Hugo De La Cruz APRN-CNP 81 mg at 11/18/24 0940 fluticasone propionate (Flonase) nasal spray 2 spray 2 spray Each Nostril QDAY PRN Hugo De La Cruz APRN-CNP 2 spray at 11/09/24 0353 [Held by Provider] furosemide (Lasix) tablet 20 mg 20 mg Oral QDAY Hugo De La Cruz APRN-CNP heparin injection 5,000 Units 5,000 Units Subcutaneous q8h Mimi Mercado DO 5,000 Units at 11/18/24 0524 [Held by Provider] losartan (Cozaar) tablet 25 mg 25 mg Oral QDAY Hugo De La Cruz APRN-CNP magnesium oxide (Mag-Ox) tablet 400 mg 400 mg Oral QDAY Hugo De La Cruz APRN- CNP 400 mg at 11/18/24 0958 melatonin tablet 6 mg 6 mg Oral AT BEDTIME Hugo De La Cruz APRN-CNP 6 mg at 11/17/24 2131 metoprolol succinate XL 24hr (Toprol XL) tablet 25 mg 25 mg Oral QDAY Tesha Hutchins DO 25 mg at 11/18/24 0930 morphine injection 2 mg 2 mg Intravenous q4h PRN Kiersten Sultana MD 2 mg at 11/17/24 1356 nitroGLYCERIN (Nitrostat) tablet 0.4 mg 0.4 mg Sublingual q5 min PRN Raoul Ga DO oxyCODONE (immediate release) (Roxicodone) tablet 2.5 mg 2.5 mg Oral q6h PRN Kiersten Sultana MD pantoprazole EC (Protonix) tablet 40 mg 40 mg Oral QDAY Hugo De La Cruz APRN- WALLPAPERER 40 mg at 940 polyethylene glycol 3350 (Miralax) packet 17 g 17 g Oral QDAY Hugo De La Cruz APRN-WALLPAPERER 17 g at 11/14/24 0817 rosuvastatin (Crestor) tablet 20 mg 20 mg Oral QDAY Hugo De La Cruz APRN-WALLPAPERER 20 mg at 11/18/24 0940 saline nasal spray (Mar[place]hal; Baby Winnebago) 0.65 % nasal spray 1 spray 1 spray Each Nostril q1h PRN Hugo De La Cruz APRN-CNP senna (Senokot) tablet 8.6 mg 8.6 mg Oral QDAY Hugo De La Cruz APRN-WALLPAPERER 8.6 mg at 11/14/24 0818 sodium chloride tablet 2 g 2 g Oral TID WC Hugo De La Cruz APRN-CNP spironolactone (Aldactone) tablet 12.5 mg 12.5 mg Oral QDAY Hugo De La Cruz APRN-WALLPAPERER 12.5 mg at 11/18/24 0940 tamsulosin (Flomax) capsule 0.4 mg 0.4 mg Oral QDAY Hugo De La Cruz APRN-WALLPAPERER 0.4 mg at 11/18/24 0940 throat lozenge 1 lozenge 1 lozenge Oral q2h PRN Hugo De La Cruz APRN-CNP 1 lozenge at 11/14/24 205 ticagrelor (Brilinta) tablet 90 mg 90 mg Oral BID Raoul Ga DO 90 mg at 11/18/24 0940 zolpidem (Ambien) tablet 5 mg 5 mg Oral AT BEDTIME PRN Kiersten Sultana MD 5 mg at 11/16/242035 Cosigned by Kiersten Sultana MD at 11/18/2024 4:23 PM CDT * Hugo De La Cruz APRN-CNP - 11/18/2024 9:48 AM CDT Family Notification Documentation Contact made: 11/18/2024 9:48 AM Person(s) contacted: patient's son José Miguel Method of communication: Phone Phone number: [phone] Duration of discussion: 10 minutes Summary of discussion General medical update incl but not limited to: -continued/worsening hyponatremia & suspected possible cause(s) > also discussed current interventions -PCI yesterday (11/17) went well per cardiology -hypomagnesemia (supplementing today) -med/GDMT adjustments Discussed that overall the best would be for Damaris to remain in the hospital another day with the many adjustments that have been made today to his medications, however, he is adamant he discharges home today. Will recheck BMP @ 1400 today and if VS + BMP stable/improving will consider attempting discharge home late afternoon. ANTWAN Irby ADDENDUM 11/18 afternoon: José Miguel called back with update, patient became hypotensive (70s/50s automatic, 80s/40s manual) - willnot discharge today. * Alda Padilla, PT - 11/17/2024 3:15 PM CDT [facility] Department of Physical Medicine & Rehabilitation Progress Note Patient: Gabino Ocampo Med Record Number: [id number] Date of : 1950 Age: [age] year old 11/17/24 0856 Missed Visit Missed Visit Procedure Off Floor Pt off floor this A.M at 08:56 for PCI. Then, per orders at 1215, pt to remain on strict bed rest for 6 hours post-cardiac cath. PT will continue to follow and attempt to see pt at later time as pt appropriate. * Hugo De La Cruz, TREE INSPECTOR-WALLPAPERER - 11/17/2024 12:39 PM CDT Images from the original note were not included. [facility] Internal Medicine Progress Note Name: Gabino Ocampo Room/Bed: OR/OR : 1950 74 year old PCP: No primary care provider on file. Admit Date/Time: 11/01/2024 9:26 PM LOS: 16 Subjective Interval History: Pt PCI today w/ interventional cardiology, per cards went well. Seen post-procedure awake and alert, breathing RA in NAD. Denies acute/new complaints at this time from prior medical notes. Hospital Course: Mr. Gabino Ocampo is a 74-year-old male with a PMHx of multi-vessel CAD (60% stenosis of proximal/mid LAD, 100% stenosis of right posterolateral descending branch of RCA, 50% stenosis of left maincoronary artery, moderate left circumflex artery stenosis, ECG suggestive of inferior wall infarct), HFrEF (EF 26% with global LV wall hypokinesia). He presented to OSH on 10/30/2024 with the chief complaint of acute onset of chest pain, nausea, and vomiting. Of note, he presented with the same symptoms a week earlier on 10/23/2024 but left against medical advice. Reported chest pain was associated with dyspnea, nausea, and stomach pain. Labs were significant for AST >7000, ALT> 5800. Renal function tests were significant for pre-renal KASEY. A preliminarysuspicion of Acute Liver Failure secondary to cardiogenic shock (shock liver), especially in the setting of HFrEF d/t underlying CAD, complicated by pre-renal KASEY was made. The patient was transferred to [facility] on 11/01/2024 where his liver function tests were again remarkable for Acute Liver Injury (ALT 3970, AST 174), hyperbilirubinemia, hyperammonemia, & serum pseudohypocalcemia 2/2 hypoalbuminemia) with superimposed pre-renal KASEY (BUN 95, Cr 3.85, eGFR 15). He endorsed abdominal pain, shortness of breath, cough, and congestion. He denied alcohol use. Patient denied prior liver disease or illness in the past. His cardiac markers on the same day revealed Troponin 113 and BNP 847. Echo obtained d/t concerning physical symptoms and trop elevation further revealed EF 26% with moderately dilated LV, globally hypokinetic LV wall motion, and severely reduced systolic function. Dilated RV but with normal systolic function. Patient underwent cardiac catheterization. Cardiac MRI obtained and cardiothoracic surgery consulted to evaluation, no surgical intervention recommended. Patient was given IV Dobutamine to restore his cardiac function which in turn restored his hepatic perfusion and gradually his liver parameters returned to normal. Fluid resuscitation corrected his renal perfusion bringing his renal labortary parameters back to normal. On 11/17 patient underwent LHC & RHC w/ interventional cardiology, PCI to proximal mid RCA, mid& distal L main, and LAD. Objective Wt Readings from Last 3 Encounters: 11/10/24 69 kg (152 lb 1.6 oz) Vitals: Temp: [98 ??F (36.7 ??C)-98.8 ??F (37.1 ??C)] 98 ??F (36.7 ??C) Pulse: [78-102] 96 Resp: [14-22] 15 BP: (92-127)/(59-91) 120/80 Weight change: Intake/Output Summary (Last 24 hours) at 11/17/2024 1303 Last data filed at 11/17/2024 1219 Gross per 24 hour Intake 400 ml Output 2100 ml Net -1700 ml Physical Exam Vitals reviewed. Constitutional: General: He is not in acute distress. Appearance: He is not toxic-appearing or diaphoretic. HENT: Head: Atraumatic. Eyes: General: No scleral icterus. Right eye: No discharge. Left eye: No discharge. Extraocular Movements: Extraocular movements intact. Neck: Comments: Freely moving Cardiovascular: Rate and Rhythm: Normal rate and regular rhythm. Heart sounds: No murmur heard. No friction rub. No gallop. Pulmonary: Effort: Pulmonary effort is normal. No respiratory distress. Breath sounds: Normal breath sounds. Comments: Room air Abdominal: General: Bowel sounds are normal. Palpations: Abdomen is soft. Tenderness: There is no guarding. Musculoskeletal: Right lower leg: No edema. Left lower leg: No edema. Skin: General: Skin is warm and dry. Coloration: Skin is not jaundiced. Comments: L groin heart cath insertion site gauze drsg C/D/I Neurological: General: No focal deficit present. Mental Status: He is alert and oriented to person, place, and time. Medications[1] Labs: CBC: Recent Labs Lab Units 11/16/2425211/15/2421511/14/24 0114 WBC x10E9/L 6.8 7.0 7.8 RBC x10E12/L 3.49* 3.44* 3.63* HGB g/dL 10.3* 10.1* 10.8* HCT % 31.7* 30.8* 32.4* BMP: Recent Labs Lab Units 11/17/2431711/16/2425211/15/24 021 NA mmol/L 132* 133* 133* CL mmol/L 104 102 102 CO2 mmol/L 21* 24 25 BUN mg/dL 10 10 11 CREATININE mg/dL 0.84 0.83 0.84 CALCIUM mg/dL 7.5* 7.7* 7.8* Magnesium: Recent Labs Component Name 11/17/2431711/16/2425211/15/24 021 MAGNESIUM 1.6 1.7 1.6 Phosphorus: Recent Labs Lab Units 11/17/2431711/16/2425211/15/24 021 PHOS mg/dL 3.5 3.4 3.6 Coagulation: Recent Labs Lab Units 11/16/2425211/15/2421511/14/24 0114 PT Seconds 14.5 15.1* 14.0 INR 1.2 1.2 1.1 Endocrine: No results for input(s): TSH, A1C in the last 168 hours. LFTs: Recent Labs Lab Units 11/17/2431711/16/2425211/15/246 11/14/24 0114 AST U/L -- 33 32 46* ALT U/L -- 66* 74* 101* TBILI mg/dL -- 0.6 0.6 0.8 ALB g/dL 2.3* 2.4* 2.2* 2.5* Micro: Microbiology Results (Displays last 21 days for this encounter ONLY) Procedure Component Value - Date/Time CULTURE BLOOD [[id number]] (Normal) Collected: 11/02/241758 Lab Status: Final result Specimen: Blood from BC Peripheral 1 Updated: 11/07/24 2332 Culture No growth day 5 CULTURE BLOOD [[id number]] (Normal) Collected: 11/02/241758 Lab Status: Final result Specimen: Blood from BC Peripheral 2 Updated: 11/07/24 2332 Culture No growth day 5 RESPIRATORY PANEL WITH SARS-COV-2 BY PCR (STL) [[id number]] (Normal) Collected: 11/02/24 0818 Lab Status: Final result Specimen: Microbiology from Nasopharyngeal Updated: 11/02/24 1624 Adenovirus PCR Not detected Coronavirus 229E PCR Not detected Coronavirus HKU1 PCR Not detected Coronavirus NL63 PCR Not detected Coronavirus OC43 PCR Not detected COVID-19 PCR Not detected Human Metapneumovirus PCR Not detected Human Rhinovirus/Enterovirus PCR Not detected Influenza A PCR Not detected Influenza B PCR Not detected Parainfluenza Virus 1 PCR Not detected Parainfluenza Virus 2 PCR Not detected Parainfluenza Virus 3 PCR Not detected Parainfluenza Virus 4 PCR Not detected Respiratory Syncytial Virus PCR Not detected Bordetella parapertussis PCR Not detected Bordetella pertussis PCR Not detected Chlamydia pneumoniae PCR Not detected Mycoplasma pneumoniae PCR Not detected Narrative: This nucleic amplification assay has received FDA authorization via the [employer]. Imaging: MRI Cardiac Study Wwo Contrast Result Date: 11/16/2024 Impression: PENDING MEASUREMENTS There is cardiomegaly with increased left ventricular volume. There is diffuse global hypokinesia and lateral wall is severely hypokinetic. There is no evidence of scar or necrosis or findings to suggest myocardial inflammation. No evidence of perfusion defects to suggest ischemic changes. Findings are most suggestive of dilated cardiomyopathy. Findings of mild tomoderate aortic regurgitation and mild mitral regurgitation as well as small patent foramen ovale. Findings suggestive of acute pulmonary edema. > Dictated by Froilan Doss MD (Animal Humane Agent Supervisor), 11/15/2024 11:17 AM. > Dictated by Animal Humane Agent Supervisor I, Abdmaggie Garrett MD have perso gabriella reviewed and interpreted this examination/study. > Interpreting Provider: Reji Garrett MD on 11/16/2024 7:[address] Chest w/o Contrast 11/08/2024 Impression: 1.Mild atherosclerotic calcification of the thoracic [...] further evaluation if not previously explored. > Interpreting Provider: Zan Cortes MD on 11/08/2024 10:51 PM Echocardiogram 11/02/2024 Summary * The left ventricle is [...] cm with an index of 2.1 cm/m2. Assessment and Plan Assessment & Plan Cardiogenic shock (HCC) Elevated troponin Heart failure with reduced ejection fraction (HCC) CAD, multiple vessel Managed per cardiology. PLAN: --cont lipitor 80mg, [...] 2.5mg oxy PRN, 2mg IVP morphine PRN Hyponatremia Chronic hyponatremia. Remains euvolemic, previously hypovolemic. Mild improvement w fluid restriction. Usom>480 Yaneth>95. TSH WNL. Working ddx: heart failure/ low effective arterial blood volume vs CKD vs adrenal insufficiency vs SIADH Hypotonic, euvolemic/hypovolemic. PLAN: --cont holding lasix --cont fluid restrict 1800 mL --consider ACTH/cortisol workup if no further improvement in Na+ with fluid restriction Hepatic trauma, initial encounter Transaminitis Ddx: shock liver vs acetaminophen toxicity vs autoimmune vs toxicity from supplements vs autoimmune Transaminases markedly elevated on admission but downtrending now Unclear baseline - no close PCP followup Ultrasound with no clear etiology for liver injury. No ascites. Trace fluid morrisons pouch. - MPO/PR3 autoantibodies negative - Liver-kidney microsomal antibody IgG negative - MEREDITH not detected - [id number] elevated at 254, but likely a result of recent transfusions - ceruloplasmin normal - F-Actin antibody IgG normal - mitochondrial M2 antibody normal - hepatitis panel normal - Improving with downtrending LFTs 11/16/2024 PLAN: --dc'd all OTC supplements IP --daily RFP Other specified anemias Thrombocytopenia Iron panel consistent with chronic disease PLAN: --hgb stable, continue to monitor --monitored platelet counts - remained stable Urinary retention Patient voiding without catheter. --bedside urinal --can restart external catheter PRN --cont tamsulosin 0.4mg daily Depression Voiced suicidal ideation on 11/09 but no plan, no homicidal ideation. No history of depression - current episode likely multifactorial: chronic life altering disease, loss of , loss of independence. Plan: --OP psychiatry referral (pt agreeable, ordered) Insomnia Melatonin is prescribed for sleep Ambien 5mg added Nocturnal desaturation study completed on 11/14/2024. F/u OP w/ PCP, resulted with intermittent desaturations to high 80%s but patient reports he did not sleep well. > discussion w/ pt sounds more psychiatry-related / thinking overnight rather than structural, already planning for OP Psych referral as above, discussed counseling/talk therapy with patient and he is agreeable [facility] [place] Discharge Information Renal US (10/31/2024) w/ possible L renal cyst: consider OP urogram via PCP, no PCP on file so [facility] coordinator order placed 11/17 OP Psych referral (ordered) Cardiology coordinating OP f/u appt Inpatient Checklist -LDA: PIV -Antibiotic end date: N/A -Consults: Cardiology, Interventional Cardiology, CTX -Diet: DIET CARDIAC -DVT Prophylaxis: ASA/Brilinta, SCDs -Code Status: LIMITED RESUSCITATION-PRIOR AND AFTER ARREST (intubation OK) -Dispo: Cont inpt treatment, likely d/c tomorrow 11/18 Hugo De La Cruz, TRINA, TREE INSPECTOR, DATA SPECIALIST-C [facility] ASCOM # [id number] (7a-5p) Non-urgent messages may be sent through [employer] Date of service: 11/17/2024 Attending Physician: Kiersten Sultana MD The total time spent was 65 minutes performing chart preparation, review of data and visit with thepatient, 49439: I addressed a chronic illness with severe exacerbation/progression/side effect and/or an acute illness/injury that poses a threat to life or bodily functions (as documented above), 03542/25857: I reviewed the results of a unique test, ordered a unique test, or performed an assessment requiring an independent historian (as documented above), and 38771/89891: I discussed the management of the patient and/or the interpretation of a test with a qualified medical profession such as the pharmacist, care coordination team and/or all relevant consultants. [1] Current Facility-Administered Medications Medication Dose Route Frequency Provider Last Rate Last Admin 0.9% NaCl injection 3 mL 3 mL Intracatheter q8h Mimi Mercado DO 3 mL at 11/17/24 0559 And 0.9% NaCl injection 1-10 mL 1-10 mL Intracatheter PRN Mimi Mercado DO [Transfer Hold] acetaminophen (Tylenol) tablet 500 mg 500 mg Oral q6h PRN Harrison Adrian DO [Transfer Hold] artificial tears ophthalmic solution 1 drop 1 drop Each Eye TID PRN Harrison Adrian DO 1 drop at 11/15/24 0857 aspirin chew tablet 81 mg 81 mg Oral QDAY Raoul Ga DO [Transfer Hold] aspirin chew tablet 81 mg 81 mg Oral QDAY Tesha Hutchins DO 81 mg at 11/16/24 0838 [Transfer Hold] atorvastatin (Lipitor) tablet 80 mg 80 mg Oral AT BEDTIME Jared Vasquez MD 80 mg at 11/16/242035 fentaNYL (PF) (Sublimaze) injection PRN Raulito Santos MD 25 mcg at 11/17/24 1126 [Transfer Hold] fluticasone propionate (Flonase) nasal spray 2 spray 2 spray Each Nostril QDAY PRN Mimi Mercado DO 2 spray at 11/09/24 0353 [Held by Provider] furosemide (Lasix) tablet 40 mg 40 mg Oral QDAY Tesha Hutchins DO 40 mg at 11/08/24 1009 [Transfer Hold] heparin injection 5,000 Units 5,000 Units Subcutaneous q8h Mimi Mercado DO 5,000Units at 11/17/24 0559 heparin injection PRN Raulito Santos MD 1,500 Units at 11/17/24 1047 iopamidol (Isovue 370) 76 % contrast PRN Raulito Santos MD 160 mL at 11/17/24 1145 lactated ringers infusion Intravenous Continuous Raoul Ga DO magnesium sulfate 4 g in 100 mL bolus 4 g Intravenous Once Hugo De La Cruz APRN-WALLPAPERER [Transfer Hold] melatonin tablet 3 mg 3 mg Oral AT BEDTIME Mariangel Mario MD 3 mg at 11/16/242035 metoprolol succinate XL 24hr (Toprol XL) tablet 25 mg 25 mg Oral QDAY Tesha Hutchins DO 25 mg at 11/16/24 0838 midazolam (Versed) injection PRN Raulito Santos MD 1 mg at 11/17/24 112 niCARdipine (Cardene) injection PRN Raulito Santos MD 100 mcg at 11/17/24 1112 nitroGLYCERIN (Nitrostat) tablet 0.4 mg 0.4 mg Sublingual q5 min PRN Raoul Ga DO nitroGLYCERIN 200 mcg/mL injection PRRaulito Guardado MD 100 mcg at 11/17/24 1112 [Transfer Hold] pantoprazole EC (Protonix) tablet 40 mg 40 mg Oral QDAY Anmol Wesley DO 40 mg at 11/16/24 0838 [Held by Provider] polyethylene glycol 3350 (Miralax) packet 17 g 17 g Oral QDAY Tesha Hutchins DO 17 g at 11/14/24 0817 [Held by Provider] sacubitril-valsartan (Entresto) 24-26 MG tablet 1 tablet 1 tablet Oral BID Jared Vasquez MD 1 tablet at 11/08/24 1009 [Transfer Hold] saline nasal spray ([place]; Baby [place]) 0.65 % nasal spray 1 spray 1 spray Each Nostril q1h PRN Kelly Hartman DO [Held by Provider] senna (Senokot) tablet 8.6 mg 8.6 mg Oral QDAY Tesha Hutchins DO 8.6 mg at 11/14/24 0818 [Transfer Hold] spironolactone (Aldactone) tablet 12.5 mg 12.5 mg Oral QDAY Jared Vasquez MD 12.5 mg at 11/16/24 0838 [Transfer Hold] tamsulosin (Flomax) capsule 0.4 mg 0.4 mg Oral QDAY Mimi Mercado DO 0.4 mg at 11/16/24 0838 [Transfer Hold] throat lozenge 1 lozenge 1 lozenge Oral q2h PRN Solis Yañez MD 1 lozenge at 11/14/242049 ticagrelor (Brilinta) tablet 90 mg 90 mg Oral BID Raoul Ga DO [Transfer Hold] zolpidem (Ambien) tablet 5 mg 5 mg Oral AT BEDTIME PRN Kait Betancourt MD 5 mg at11/16/242035 Cosigned by Kiersten Sultana MD at 11/17/2024 1:40 PM CDT * Joann Sánchez RN - 11/16/2024 7:20 PM CDT Problem: Skin/Tissue Integrity - Adult Goal: Skin integrity remains intact Description: INTERVENTIONS: Outcome: Progressing Goal: Incisions, wounds, or drain sites healing without S/S of infection Description: INFECTIONS: Outcome: Progressing Goal: Oral mucous membranes remain intact Description: INTERVENTIONS: Outcome: Progressing Problem: Fall Risk Goal: Fall risk and fall related injury risk are minimized (interventions related to the fall risk can be found in the flowsheet documentation) Outcome: Progressing Problem: Pain/Discomfort Goal: Patient exhibits reduced pain/discomfort as evidenced by pain scores Outcome: Progressing Goal: Patient uses pharmacological and non-pharmacological pain management strategies. Outcome: Progressing Goal: Patient verbalizes acceptable level of pain relief and ability to engage in desired activity. Outcome: Progressing Patient verbalized understanding of care plan consisting of pain, skin care and fall precautions. * Francine Posada MD - 11/16/2024 3:14 PM CDT Images from the original note were not included. [facility] Internal Medicine Progress Note Name: Gabino Ocampo Room/Bed: 737/01 : 1950 74 year old PCP: No primary care provider on file. Admit Date/Time: 11/01/2024 9:26 PM LOS: 15 Subjective Interval update: Reports continued lack of sleep with ambien dose last night, but feels better than yesterday. No new symptoms. Reports decreased tenderness in R inguinal mass. US to assess today. Reports loose stools, denies fevers, chills, blood in stool or abdominal pain. Held miralax and senna. Cards planning cath in AM tomorrow. NPO midnight. Hospital course: Mr. Gabino Ocampo is a 74 year old male with the past medical history of multi-vessel Coronary artery disease (60% stenosis of proximal/mid LAD, 100% stenosis of right posterolateral descending branch of RCA, 50% stenosis of left main coronary artery, moderate Left circumflex artery stenosis, ECG suggestive of inferior wall infarct), Systolic Heart Failure (LV ejection fraction of 26% with global LV wall hypokinesia, CXR evident of cardiomegaly and bilateral ground glass pulmonary interstitial infiltrates), presented to an OSH facility on 10/30/2024 with the chief complaint of acute onset of chest pain, nausea, and vomiting. The Patient presented with the same symptoms a week earlier on 0 10/23/2024 but left against medical advice. The chest pain was associated with dyspnea, nausea, stomach pain, and labs were significant for AST>7000, ALT> 5800. Additionally renal function tests were significant for pre-renal KASEY. A preliminary suspicion of Acute Liver Failure secondary to cardiogenic shock (shock liver), especially in the setting of systolic heart failure due to underlying CAD, complicated by pre-renal KASEY was made. The patient was transferred to [facility] on 11/01/2024 where his Liver function tests were again remarkable for Acute Liver Injury (ALT= 3970 U/L, AST = 3174 U/L, decreased serum albumin [2g/dl], decreased serum total protein [4.6 g/dl], hyperbilirubinemia, hyperammonemia, & serum pseudohypocalcemiasecondary to hypoalbuminemia) with superimposed pre-renal KASEY (BUN= 95, Cr= 3.85, BUN:Cr = 24.67, eGFR = 15). He complained of abdominal pain, shortness of breath,cough, and congestion. He denied anyalcohol intake. Patient denied having knowledge of any liver disease or illness in the past. His cardiac markers done on the same day revealed Troponin-1 =113 ng/L and BNP= 847 pg/ml. Physical symptoms coupled to cardiac markers elevation prompted Echocardiography that further revealed 26% with a moderately dilated LV, globally hypokinetic LV wall motion, and severely reduced systolic function. Dilated RV but with normal systolic function. Patient underwent cardiac catheterization. CT thoracic also revealed atherosclerosis and calcification of aortic arch. Patient was given IV Dobutamine to restore his cardia function which in turn restored his hepatic perfusion and gradually his liver parameters returned to normal. Fluid resuscitation corrected his renal perfusion bringing his renal labortary parameters back to normal. Objective Temp: [98 ??F (36.7 ??C)-98.2 ??F (36.8 ??C)] 98.2 ??F (36.8 ??C) Pulse: [85-91] 85 Resp: [16-20] 16 BP: (97-109)/(60-71) 97/60 Weight change: Intake/Output Summary (Last 24 hours) at 11/16/2024 1515 Last data filed at 11/16/2024 1303 Gross per 24 hour Intake 750 ml Output 900 ml Net -150 ml Physical Exam: General - NAD, afebrile, non cachectic HEENT - clear conjunctivae, moist mucous membranes Neck - Supple, no JVD Chest - CTAB no crackles or wheezes bilaterally CV - RRR no murmurs Abdomen - Soft, NT/ND, +BS. 2.5x2 inch non-erythematous, slightly mobile mass in R groin above inguinal ligament, tender to palpation but reports better than yest. Musculoskeletal - Moves all four extremities Extremities - No edema Neurologic - A&O x 3, no focal neurological deficits Psych - Appropriate mood and affect Scheduled Medications: Medications[1] PRN Medications: Medications[2] Continuous Infusions: Medications[3] Laboratory Data Recent Labs Component Name 11/16/2425211/15/2421511/14/24 0114 WBC 6.8 7.0 7.8 HGB 10.3* 10.1* 10.8* HCT 31.7* 30.8* 32.4* PLTCOUNT 233 228 252 MCV 90.8 89.5 89.3 Recent Labs Component Name 11/16/2425211/15/2421511/14/24 0114 PT 14.5 15.1* 14.0 INR 1.2 1.2 1.1 Recent Labs Component Name 11/16/2425211/15/246 11/14/24 0114 NA 133* 133* 132* POTASSIUM 4.1 4.3 4.6* CL 102 102 103 CO2 24 25 26 BUN 10 11 14 CREATININE 0.83 0.84 0.94 Recent Labs Component Name 11/16/2425211/15/246 11/14/24 0114 CALCIUM 7.7* 7.8* 7.9* PHOS 3.4 3.6 3.0 Recent Labs Component Name 11/16/2425211/15/2421511/14/24 0114 PROT 4.9* 4.9* 5.5* ALB 2.4* 2.2* 2.5* ALKPHOS 114 105 126 AST 33 32 46* ALT 66* 74* 101* TBILI 0.6 0.6 0.8 No results for input(s): CKTOTAL, CKMBCK2, TROPONINI in the last 37871 hours. No results for input(s): VANCORNDM, VANCTROUGH in the last 27797 hours. Microbiology Results (Displays last 21 days for this encounter ONLY) Procedure Component Value - Date/Time CULTURE BLOOD [[id number]] (Normal) Collected: 11/02/241758 Lab Status: Final result Specimen: Blood from BC Peripheral 1 Updated: 11/07/24 2332 Culture No growth day 5 CULTURE BLOOD [[id number]] (Normal) Collected: 11/02/241758 Lab Status: Final result Specimen: Blood from BC Peripheral 2 Updated: 11/07/24 2332 Culture No growth day 5 RESPIRATORY PANEL WITH SARS-COV-2 BY PCR ([facility]) [[id number]] (Normal) Collected: 11/02/24 0818 Lab Status: Final result Specimen: Microbiology from Nasopharyngeal Updated: 11/02/24 1624 Adenovirus PCR Not detected Coronavirus 229E PCR Not detected Coronavirus HKU1 PCR Not detected Coronavirus NL63 PCR Not detected Coronavirus OC43 PCR Not detected COVID-19 PCR Not detected Human Metapneumovirus PCR Not detected Human Rhinovirus/Enterovirus PCR Not detected Influenza A PCR Not detected Influenza B PCR Not detected Parainfluenza Virus 1 PCR Not detected Parainfluenza Virus 2 PCR Not detected Parainfluenza Virus 3 PCR Not detected Parainfluenza Virus 4 PCR Not detected Respiratory Syncytial Virus PCR Not detected Bordetella parapertussis PCR Not detected Bordetella pertussis PCR Not detected Chlamydia pneumoniae PCR Not detected Mycoplasma pneumoniae PCR Not detected Narrative: This nucleic amplification assay has received FDA authorization via the [employer]. Imaging Cardiac MRI 11/14/2024 Findings: PENDING MEASUREMENTS MORPHOLOGY AND FUNCTION: *Left [...] ovale. Findings suggestive of acute pulmonary edema. Relevant labs and imaging data reviewed on [facility]. Assessment and Plan Hepatic trauma, initial encounter (POA: Unknown) Other specified anemias (POA: Unknown) Urinary retention (POA: Unknown) Heart failure with reduced ejection fraction (HCC) (POA: Unknown) Cardiogenic shock (HCC) (POA: Unknown) Elevated troponin (POA: Unknown) Transaminitis (POA: Yes) Thrombocytopenia (POA: Unknown) Hyponatremia (POA: No) Depression (POA: No) Hyponatremia (POA: No) Insomnia (POA: No) Assessment & Plan Cardiogenic shock (HCC) Elevated troponin Heart failure with reduced ejection fraction (HCC) Managed per cardiology. PLAN: --cont lipitor 80mg, metoprolol succinate 25 mg, spironolactone 12.5 mg --cont holding lasix 40mg PO daily --hold entresto 24-26 BID and jardiance 10mg qday - awaiting cards/CTS recs --cont fluid restriction 1800mL, --MRI cardiac study resulted. - CTS with no surgical intervention. - Cardiology plan for cath in AM. NPO at midnight. Hyponatremia Chronic hyponatremia. Remains euvolemic, previously hypovolemic. Mild improvement w fluid restriction. Usom>480 Yaneth>95. TSH WNL. Working ddx: heart failure/ low effective arterial blood volume vs CKD vs adrenal insufficiency vs SIADH Hypotonic, euvolemic/hypovolemic. PLAN: --cont holding lasix --cont fluid restrict 1800 mL --consider ACTH/cortisol workup if no further improvement in Na+ with fluid restriction Hepatic trauma, initial encounter Transaminitis Ddx: shock liver vs acetaminophen toxicity vs autoimmune vs toxicity from supplements vs autoimmune Transaminases markedly elevated on admission but downtrending now Unclear baseline - no close PCP followup Ultrasound with no clear etiology for liver injury. No ascites. Trace fluid morrisons pouch. - MPO/PR3 autoantibodies negative - Liver-kidney microsomal antibody IgG negative - MEREDIHT not detected - [id number] elevated at 254, but likely a result of recent transfusions - ceruloplasmin normal - F-Actin antibody IgG normal - mitochondrial M2 antibody normal - hepatitis panel normal - Improving with downtrending LFTs 11/16/2024 PLAN: --dc all OTC supplements IP --dc LFTs, INR, CBC --daily RFP Other specified anemias Thrombocytopenia Iron panel consistent with chronic disease PLAN: --hgb stable, continue to monitor --monitor platelet counts closely - remains stable Urinary retention Patient voiding without catheter. --bedside urinal --restart external catheter PRN --cont tamsulosin 0.4mg daily Depression Voiced suicidal ideation on 11/09 but no plan, no homicidal ideation. No history of depression - current episode likely multifactorial: chronic life altering disease, loss of , loss of independence. Plan: --OP psychiatry referral (pt agreeable) Insomnia Melatonin is prescribed for sleep Ambien 5mg added Nocturnal desaturation study was ordered on 11/14/2024. Result pending. Incidental findings requiring follow up: Diet: DIET CARDIAC DIET NPO Except: NO EXCEPTIONS DVT Prophylaxis: Heparin (DVT Prophylaxis Dose) Code Status: LIMITED RESUSCITATION-PRIOR AND AFTER ARREST [place] Candidate?: No Electronically Signed By: Francine Posada MD 11/16/2024 3:15 PM [1] 0.9% NaCl 3 mL Intracatheter q8h aspirin 81 mg Oral QDAY atorvastatin 80 mg Oral AT BEDTIME [Held by Provider] furosemide 40 mg Oral QDAY gadobenate dimeglumine Intravenous Contrast - Once gadobenate dimeglumine Intravenous Contrast - Once gadobenate dimeglumine Intravenous Contrast - Once heparin 5,000 Units Subcutaneous q8h melatonin 3 mg Oral AT BEDTIME metoprolol succinate XL 24hr 25 mg Oral QDAY pantoprazole EC 40 mg Oral QDAY [Held by Provider] polyethylene glycol 3350 17 g Oral QDAY [Held by Provider] sacubitril-valsartan 1 tablet Oral BID [Held by Provider] senna 8.6 mg Oral QDAY spironolactone 12.5 mg Oral QDAY tamsulosin 0.4 mg Oral QDAY [2] SALINE LOCK, INSERT AND MAINTAIN AND 0.9% NaCl AND 0.9% NaCl acetaminophen artificial tears fluticasone propionate saline nasal spray throat lozenge zolpidem [3] Cosigned by Raoul Ga DO at 11/16/2024 6:01 PM CDT Associated attestation - Raoul Ga DO - 11/16/2024 6:01 PM CDT I have verified the documentation of the resident including all history, exam, and medical decision-making details. I have personally performed a physical exam and have personally reviewed the data to support my medical decision-making as outlined in the resident???s note, and I arrive independently at the same conclusion. Hepatic trauma, initial encounter (POA: Unknown) Other specified anemias (POA: Unknown) Urinary retention (POA: Unknown) Heart failure with reduced ejection fraction (HCC) (POA: Unknown) Cardiogenic shock (HCC) (POA: Unknown) Elevated troponin (POA: Unknown) Transaminitis (POA: Yes) Thrombocytopenia (POA: Unknown) Hyponatremia (POA: No) Depression (POA: No) Hyponatremia (POA: No) Insomnia (POA: No) Raoul Ga, DO Internal Medicine 6:01 PM 11/16/2024 * Alda Padilla, PT - 11/16/2024 1:57 PM CDT [facility] Department of Physical Medicine & Rehabilitation Progress Note Patient: Gabino Ocampo Med Record Number: [id number] Date of : 1950 Age: [age] year old 11/16/24 1358 Missed Visit Missed Visit Other (Comment) Provider at bedside at this time having discussion with pt. PT will attempt to see pt at later timeas schedule allows. * Ruby Irvin - 11/16/2024 11:11 AM CDT [facility] INTERNAL MEDICINE PROGRESS NOTE Patient: Gabino Ocampo Sex: male Age: [age] year old Date of : 1950 Date of Admission: 11/01/2024 Date: 11/16/2024 LOS: 15 SUBJECTIVE Interval History: The patient had no acute events overnight. He noted a lack of sleep but endorsed feeling better this AM and said his mood had improved since a few days ago. He denied CP, SOB, N/V. He endorsed some dryness in his nasal cavities. He noted some pain and swelling in the rt inguinal region that he saysprotrudes when he coughs. He is voiding appropriately and noted loose stool since this AM and 3-4x yesterday. He denied blood in the stool, foul smelling stool, and abdominal pain. He states he normally has good bowel movements at home. Hospital Course: Mr. Vallejo is a 74 y/o M w/ PMHx multivessel CAD, systolic HF w/ LVEF 26% who presented to OSH w/ acute onset CP, SOB, N/V, and abdominal pain. Labs indicated AST<7,000 and ALT >5,800. RFT indicated KASEY. A preliminary diagnosis od acute liver failure 2/2 cardiogenic shock in the setting ofsystolic HF d/2 CAD complicated by prerenal KASEY. He was transferred to [facility] 11/01 where LFTs showed acute liver injury with prerenal KASEY redemonstrated. Cardiac markers were elevtaed, so echo was obtained 11/02 which revealed dilated LV w/ EF 26%, hypokinetic LV wall motion, reduced systolic fn. The patient then underwent cardiac cath 11/06 which demonstrated multivessel CAD: 60% proximal/mid LAD stenosis, 50% distal LM stenosis, 1st RPL lesion is 100% stenosed, 100% chronic total occlusion ofRPDA and RPLV, moderate LCX stenosis, low/normal biventricular filling pressures, and preserved CO.The patient was given IV dobutamine which helped to restore hepatic perfusion. In addition OTC supplements were discontinued leading to downtrending transaminases. Fluid resuscitation lead to KASEY resolution. The patient remains admitted for management of HFrEF and dilated cardiomyopathy 2/2 multivessel CAD. CTS and Cardiology continue to follow. CTS discussed CABG vs PCI and recommended no surgical intervention at this time. Cardiology to follow-up on PCI. OBJECTIVE Vital Signs: Vitals: 11/15/24 2323 11/16/24 0402 11/16/24 1127 11/16/24 1130 BP: 102/67 109/71 97/60 Pulse: 89 85 Resp: 18 16 Temp: 98.2 ??F (36.8 ??C) 98.2 ??F (36.8 ??C) SpO2: 96% 95% 95% Weight: Height: Temp Min: 97.2 ??F (36.2 ??C) Max: 99.1 ??F (37.3 ??C), Pulse Min: 43 Max: 142, Resp Min: 10 Max: 45, BP Min: 78/44 Max: 141/87 Intake & Output: In: 950 [P.O.:900; I.V.:50] Out: 1750 [Urine:1750] Physical Exam: General: Alert and oriented. HEENT: Head is normocephalic, atraumatic. Pupils noted to be small but accomodation in tact. EOMI. Moist mucous membranes. Respiratory: CTAB, no wheezes, rubs, or crackles. Cardiovascular: RRR, no MRG Gastrointestinal: Soft, non tender, non distended. +BS Extremities: No edema bilaterally Neurologic: CN 2-12 intact. Psychiatric: Mood is appropriate. Inguinal region: A 0.5 cm by 2 cm mass was palpated in the rt inguinal region. The mass was not reducible and was painful to palpation. Current Medications: Scheduled: Medications[1] Continuous: Medications[2] PRN: Medications[3] Significant Lab Results: CBC: Recent Labs Component Name 11/16/2425211/15/2421511/14/24 011 WBC 6.8 7.0 7.8 HGB 10.3* 10.1* 10.8* HCT 31.7* 30.8* 32.4* MCV 90.8 89.5 89.3 Coagulation Panel: Recent Labs Component Name 11/16/2425211/15/2421511/14/24 0114 PT 14.5 15.1* 14.0 INR 1.2 1.2 1.1 BMP: Recent Labs Component Name 11/16/2425211/15/2421511/14/24 0114 NA 133* 133* 132* POTASSIUM 4.1 4.3 4.6* CL 102 102 103 CO2 24 25 26 BUN 10 11 14 CREATININE 0.83 0.84 0.94 CALCIUM 7.7* 7.8* 7.9* Recent Labs Component Name 11/16/2425211/15/2421511/14/24 0114 MAGNESIUM 1.7 1.6 1.7 Recent Labs Component Name 11/16/2425211/15/2421511/14/24 0114 PHOS 3.4 3.6 3.0 Hepatic Panel: Recent Labs Component Name 11/16/2425211/15/2421511/14/24 0114 AST 33 32 46* ALT 66* 74* 101* ALKPHOS 114 105 126 TBILI 0.6 0.6 0.8 ALB 2.4* 2.2* 2.5* Thyroid Studies: Recent Labs Component Name 11/03/24 0800 TSH 1.267 Lipid Panel: Recent Labs Component Name 11/03/24 0800 LDLCALC 62 HDL 5* Microbiology: -No recent microbiology studies. Imaging & Studies: Echo 11/02: The left ventricle is moderately dilated, with severely reduced systolic function and an estimated ejection fraction of 26% by biplane method of disks. Left ventricular wall motion is globally hypokinetic.Right ventricle is dilated with normal systolic function. No hemodynamically significant valve disease. The aortic root at the sinus of Valsalva is borderline dilated measuring 3.7 cm with an index of 2.0 cm/m2. The ascending aorta is dilated measuring 4.0 cm with an index of2.1 cm/m2. Lt and Rt Cardiac Cath 11/06: 1.Multi-vessel coronary artery disease. 2. 60% proximal/mid LAD tubular stenosis, ischemic by iFR 0.72. 3. 50% distal LM stenosis. 4. 1st RPL lesion is 100% stenosed . 5. 100% chronic total occlusion of RPDA and RPLV, distally filled by gljz-up-vdnwo collaterals. 6. Moderate LCX stenosis. 7. Low/normal biventricular filling pressures. 8. No pulmonary hypertension. 9. Preserved cardiac output and cardiac index. CT Chest w/o Contrast 11/08: 1.Mild atherosclerotic calcification of the thoracic aorta [...] for further evaluation if not previously explored. Cardiac MRI 11/14/24: There is cardiomegaly with increased left ventricular [...] ovale. Findings suggestive of acute pulmonary edema. ASSESSMENT & PLAN Hepatic trauma, initial encounter (POA: Unknown) Other specified anemias (POA: Unknown) Urinary retention (POA: Unknown) Heart failure with reduced ejection fraction (HCC) (POA: Unknown) Cardiogenic shock (HCC) (POA: Unknown) Elevated troponin (POA: Unknown) Transaminitis (POA: Yes) Thrombocytopenia (POA: Unknown) Hyponatremia (POA: No) Depression (POA: No) Hyponatremia (POA: No) Insomnia (POA: No) Cardiogenic Shock HFrEF Dilated Cardiomyopathy Acute Pulmonary Edema Multivessel CAD A: The patient had an Echo indicative of left ventricle dilation with severely reduced systolic function and an estimated ejection fraction of 26% indicating HFrEF. Cardiac Cath notable for multivessel CAD. He received a cardiac MRI to help guide the decision between CABG vs PCI per CTS. P: -CTS consulted and is following. CTS updated about cardiac MRI results and are not recommending surgery at this time. Recommended engaging interventional cardiology for PCI. The patient's son was updated and noted understanding. -Cardiology consulted and is following and recommended to schedule him for PCI of the LAD. -Continuing Lipitor 80 mg, Metoprolol Succinate 25 mg, Spironolactone 12.5 mg. -Holding Lasix 40 mg PO qD. -Holding Entresto 24-26 BID and Jardiance 10 mg qD per Cardiology. -Fluid restriction 1800 mL Mass in the Rt. Inguinal Region A: A 0.5 cm by 2 cm mass was palpated in the rt inguinal region. The mass was not reducible and waspainful to palpation. Differentials include hematoma vs fluid collection vs pseudo aneurysm vs inguinal hernia. P: -Cardiology updated about the mass and following. -VAS Rt Arterial Duplex Le ordered. Incidental Indeterminate Left Exophytic Renal Lesion Renal Cyst A: On US Kidneys and Bladder 10/31 performed at OSH, a solid hypoechoic left renal mass and sub centimeter left renal cyst were identified. CT Chest w/o Contrast 11/08 had similar findings: an incidental, indeterminate left exophytic renal lesion was found. P: -Patient will receive an OP CT urogram for further evaluation. Hyponatremia A: The patient is most likely experiencing euvolemic hyponatremia 2/2 HF vs SIADH. Na 133 today andstable from yesterday. Fluid restriction appears to be improving the hyponatremia. P: -Continue fluid restriction 1800 mL -Continue holding Lasix. -CTM RFP. Elevated Transaminitis A: Patient's AST and ALT 33 and 66 respectively, down trending from admission indicating improvement. P: -Discontinued daily CBC, CMP, INR Normocytic Anemia A: Patient's Hgb 10.3 up from 10.1 yesterday. Hgb appears stable. P: CTM. Urinary Retention A: Patient continues to void without a catheter and endorses good urine output P: -Continue Tamsulosin 0.4mg qD -Patient has a bedside urinal in place. Diarrhea A: The patient endorses multiple bouts of loose stool and states that he typically has good, regular bowel movements at home. P: -Discontinue Senna and Miralax. Depression A: Patient endorsed SI 11/09 but did not have a plan and continues not to have a plan. He stated an improvement in his mood and denies SI today. P: -Outpatient behavioral health referral. Insomnia A: Patient noted difficulty sleeping while being in the hospital and has not been able to get any rest. P: -Patient currently on Melatonin and Ambien 5 mg -Nocturnal Desaturation Study results pending. Code: Limited Resuscitation-Prior and after arrest Diet: Cardiac Diet Electrolytes: Replete PRN PPx: Heparin (DVT Prophylaxis Dose) Access: PIV Lt Forearm Dispo: TBD The above assessment and plan will be discussed with the attending. This note is not final until attested by attending physician. Ruby Irvin, MS3 Internal Medicine [facility] 11/16/2024 2:02 PM [1] 0.9% NaCl 3 mL Intracatheter q8h aspirin 81 mg Oral QDAY atorvastatin 80 mg Oral AT BEDTIME [Held by Provider] furosemide 40 mg Oral QDAY gadobenate dimeglumine Intravenous Contrast - Once gadobenate dimeglumine Intravenous Contrast - Once gadobenate dimeglumine Intravenous Contrast - Once heparin 5,000 Units Subcutaneous q8h melatonin 3 mg Oral AT BEDTIME metoprolol succinate XL 24hr 25 mg Oral QDAY pantoprazole EC 40 mg Oral QDAY [Held by Provider] polyethylene glycol 3350 17 g Oral QDAY [Held by Provider] sacubitril-valsartan 1 tablet Oral BID [Held by Provider] senna 8.6 mg Oral QDAY spironolactone 12.5 mg Oral QDAY tamsulosin 0.4 mg Oral QDAY [2] [3] SALINE LOCK, INSERT AND MAINTAIN AND 0.9% NaCl AND 0.9% NaCl acetaminophen artificial tears fluticasone propionate saline nasal spray throat lozenge zolpidem Cosigned by Raoul Ga DO at 11/16/2024 6:01 PM CDT * Queenie Sanford RN - 11/15/2024 7:39 PM CDT Problem: Skin/Tissue Integrity - Adult Goal: Skin integrity remains intact Description: INTERVENTIONS: Outcome: Progressing Goal: Incisions, wounds, or drain sites healing without S/S of infection Description: INFECTIONS: Outcome: Progressing Goal: Oral mucous membranes remain intact Description: INTERVENTIONS: Outcome: Progressing Problem: Neurovascular Musculoskeletal - Adult Goal: Return mobility to safest level of function Description: INTERVENTIONS: 11/15/20241938 by Queenie Sanford RN Outcome: Progressing 11/15/20241938 by Queenie Sanford RN Outcome: Adequate for Discharge Goal: Return ADL status to a safe level of function Description: INTERVENTIONS: 11/15/20241938 by Queenie Sanford RN Outcome: Progressing 11/15/20241938 by Queenie Sanford RN Outcome: Adequate for Discharge Goal: Absence or reduction of edema Description: INTERVENTIONS 11/15/20241938 by Queenie Sanford RN Outcome: Progressing 11/15/20241938 by Queenie Sanford RN Outcome: Adequate for Discharge Goal: Maintains or improves tissue perfusion Description: INTERVENTIONS 11/15/20241938 by Queenie Sanford RN Outcome: Progressing 11/15/20241938 by Queenie Sanford RN Outcome: Adequate for Discharge * Kait Betancourt MD - 11/15/2024 2:12 PM CDT Images from the original note were not included. [facility] Internal Medicine Progress Note Name: Gabino Ocampo Room/Bed: 737/01 : 1950 74 year old PCP: No primary care provider on file. Admit Date/Time: 11/01/2024 9:26 PM LOS: 14 Subjective Interval update: 11/15/2024: Today the patient reports lack of sleep. He appears oriented and says he feels better as compared to yesterday but his sleep has been severely diminished. He was lying comfortably lying on sofa and complained of mild cough and dry nose. He is hemodynamically stable and reports no new onset of symptoms overnight. Hospital course: Mr. Gabino Ocampo is a 74 year old male with the past medical history of multi-vessel Coronary artery disease (60% stenosis of proximal/mid LAD, 100% stenosis of right posterolateral descending branch of RCA, 50% stenosis of left main coronary artery, moderate Left circumflex artery stenosis, ECG suggestive of inferior wall infarct), Systolic Heart Failure (LV ejection fraction of 26% with global LV wall hypokinesia, CXR evident of cardiomegaly and bilateral ground glass pulmonary interstitial infiltrates), presented to an OSH facility on 10/30/2024 with the chief complaint of acute onset of chest pain, nausea, and vomiting. The Patient presented with the same symptoms a week earlier on 0 10/23/2024 but left against medical advice. The chest pain was associated with dyspnea, nausea, stomach pain, and labs were significant for AST>7000, ALT> 5800. Additionally renal function tests were significant for pre-renal KASEY. A preliminary suspicion of Acute Liver Failure secondary to cardiogenic shock (shock liver), especially in the setting of systolic heart failure due to underlying CAD, complicated by pre-renal KASEY was made. The patient was transferred to [facility] on 11/01/2024 where his Liver function tests were again remarkable for Acute Liver Injury (ALT= 3970 U/L, AST = 3174 U/L, decreased serum albumin [2g/dl], decreased serum total protein [4.6 g/dl], hyperbilirubinemia, hyperammonemia, & serum pseudohypocalcemiasecondary to hypoalbuminemia) with superimposed pre-renal KASEY (BUN= 95, Cr= 3.85, BUN:Cr = 24.67, eGFR = 15). He complained of abdominal pain, shortness of breath,cough, and congestion. He denied anyalcohol intake. Patient denied having knowledge of any liver disease or illness in the past. His cardiac markers done on the same day revealed Troponin-1 =113 ng/L and BNP= 847 pg/ml. Physical symptoms coupled to cardiac markers elevation prompted Echocardiography that further revealed 26% with a moderately dilated LV, globally hypokinetic LV wall motion, and severely reduced systolic function. Dilated RV but with normal systolic function. Patient underwent cardiac catheterization. CT thoracic also revealed atherosclerosis and calcification of aortic arch. Patient was given IV Dobutamine to restore his cardia function which in turn restored his hepatic perfusion and gradually his liver parameters returned to normal. Fluid resuscitation corrected his renal perfusion bringing his renal labortary parameters back to normal. Objective Temp: [97.5 ??F (36.4 ??C)-99 ??F (37.2 ??C)] 97.5 ??F (36.4 ??C) Pulse: [75-94] 75 Resp: [17-20] 17 BP: (93-110)/(60-75) 101/60 Weight change: Intake/Output Summary (Last 24 hours) at 11/15/2024 1413 Last data filed at 11/15/2024 1300 Gross per 24 hour Intake 400 ml Output 850 ml Net -450 ml Physical Exam: Physical Exam Patient is well oriented to time, place, person, situation, and surroundings lying comfortably on sofa in a supine recumbent position with an IV cannula in his left forearm. GCS:15/15 Constitutional: Appearance: Normal appearance. HENT: Head: Normocephalic. Cardiovascular: Rate and Rhythm: Normal rate.Regular rhythm. Pulmonary: Effort: Pulmonary effort is normal. Breath sounds: Normal breath sounds. Abdominal: General: Abdomen is flat, soft, non-distended. Palpations: Abdomen is soft, non-tender, non-distended. A 2x3 cm mobile obliquely protruding sac was palpated in the right groin region above the inguinal ligament. Cough test was positive. Ring occlusion test was negative. No skin changes were noted. Scrotal bag was normal in size. Musculoskeletal: Cervical back: Normal range of motion and neck supple. Neurological: General: No focal deficit present. Mental Status: He is alert and oriented to person, place, and time. However, patient appeared a little forgetful. Psychiatric: Mood and Affect: Mood normal. Scheduled Medications: Medications[1] PRN Medications: Medications[2] Continuous Infusions: Medications[3] Laboratory Data Recent Labs Component Name 11/15/2421511/14/2411311/13/24 0403 WBC 7.0 7.8 7.7 HGB 10.1* 10.8* 10.0* HCT 30.8* 32.4* 29.8* PLTCOUNT 228 252 216 MCV 89.5 89.3 89.8 Recent Labs Component Name 11/15/2421511/14/244 11/13/24 0403 PT 15.1* 14.0 14.2 INR 1.2 1.1 1.1 Recent Labs Component Name 11/15/2421511/14/24 0114 11/13/24 0403 NA 133* 132* 133* POTASSIUM 4.3 4.6* 4.3 CL 102 103 103 CO2 25 26 25 BUN 11 14 9 CREATININE 0.84 0.94 0.90 Recent Labs Component Name 11/15/2421511/14/24 0114 11/13/24 0403 CALCIUM 7.8* 7.9* 7.3* PHOS 3.6 3.0 3.1 Recent Labs Component Name 11/15/2421511/14/2411311/13/24 0403 PROT 4.9* 5.5* 4.6* ALB 2.2* 2.5* 2.0* ALKPHOS 105 126 106 AST 32 46* 42* ALT 74* 101* 99* TBILI 0.6 0.8 0.7 No results for input(s): CKTOTAL, CKMBCK2, TROPONINI in the last 79832 hours. No results for input(s): VANCORNDM, VANCTROUGH in the last 06761 hours. Labs show Pseudo-hypocalcemia secondary to hypoalbuminemia which in turn is most likely due to acute liver failure. Corrected serum calcium levels = measured serum calcium + 0.8 (4 - serum albumin) = Corrected serum calcium levels = 9.24 mg/dl Mild hyponatremia with lower normal serum osmolality and euvolemia suggests a new onset of siADH orpolydipsia. Microbiology Results (Displays last 21 days for this encounter ONLY) Procedure Component Value - Date/Time CULTURE BLOOD [[id number]] (Normal) Collected: 11/02/241758 Lab Status: Final result Specimen: Blood from BC Peripheral 1 Updated: 11/07/24 2332 Culture No growth day 5 CULTURE BLOOD [[id number]] (Normal) Collected: 11/02/241758 Lab Status: Final result Specimen: Blood from BC Peripheral 2 Updated: 11/07/24 2332 Culture No growth day 5 RESPIRATORY PANEL WITH SARS-COV-2 BY PCR ([facility]) [[id number]] (Normal) Collected: 11/02/24 0818 Lab Status: Final result Specimen: Microbiology from Nasopharyngeal Updated: 11/02/24 1624 Adenovirus PCR Not detected Coronavirus 229E PCR Not detected Coronavirus HKU1 PCR Not detected Coronavirus NL63 PCR Not detected Coronavirus OC43 PCR Not detected COVID-19 PCR Not detected Human Metapneumovirus PCR Not detected Human Rhinovirus/Enterovirus PCR Not detected Influenza A PCR Not detected Influenza B PCR Not detected Parainfluenza Virus 1 PCR Not detected Parainfluenza Virus 2 PCR Not detected Parainfluenza Virus 3 PCR Not detected Parainfluenza Virus 4 PCR Not detected Respiratory Syncytial Virus PCR Not detected Bordetella parapertussis PCR Not detected Bordetella pertussis PCR Not detected Chlamydia pneumoniae PCR Not detected Mycoplasma pneumoniae PCR Not detected Narrative: This nucleic amplification assay has received FDA authorization via the [employer] Pathway. Imaging No results found. Relevant labs and imaging data reviewed on [facility]. Assessment and Plan Hepatic trauma, initial encounter (POA: Unknown) Other specified anemias (POA: Unknown) Urinary retention (POA: Unknown) Heart failure with reduced ejection fraction (HCC) (POA: Unknown) Cardiogenic shock (HCC) (POA: Unknown) Elevated troponin (POA: Unknown) Transaminitis (POA: Yes) Thrombocytopenia (POA: Unknown) Hyponatremia (POA: No) Overflow diarrhea (POA: No) Depression (POA: No) Hyponatremia (POA: No) Insomnia (POA: No) Assessment & Plan Cardiogenic shock (HCC) Elevated troponin Heart failure with reduced ejection fraction (HCC) Managed per cardiology. PLAN: --cont lipitor 80mg, metoprolol succinate 25 mg, spironolactone 12.5 mg --cont holding lasix 40mg PO daily --hold entresto 24-26 BID and jardiance 10mg qday - awaiting cards/CTS recs --cont fluid restriction 1800mL, --Pending report for MRI cardiac study. Cardiology consultation once report is available. Hyponatremia Chronic hyponatremia. Remains euvolemic, previously hypovolemic. Mild improvement w fluid restriction. Usom>480 Yaneth>95. TSH WNL. Working ddx: heart failure/ low effective arterial blood volume vs CKD vs adrenal insufficiency vs SIADH Hypotonic, euvolemic/hypovolemic. PLAN: --cont holding lasix --cont fluid restrict 1800 mL --consider ACTH/cortisol workup if no further improvement in Na+ with fluid restriction Hepatic trauma, initial encounter Transaminitis Ddx: shock liver vs acetaminophen toxicity vs autoimmune vs toxicity from supplements vs autoimmune Transaminases markedly elevated on admission but downtrending now Unclear baseline - no close PCP followup Ultrasound with no clear etiology for liver injury. No ascites. Trace fluid morrisons pouch. - MPO/PR3 autoantibodies negative - Liver-kidney microsomal antibody IgG negative - MEREDITH not detected - [id number] elevated at 254, but likely a result of recent transfusions - ceruloplasmin normal - F-Actin antibody IgG normal - mitochondrial M2 antibody normal - hepatitis panel normal PLAN: --dc all OTC supplements IP --daily CBC, CMP, INR Other specified anemias Thrombocytopenia Iron panel consistent with chronic disease PLAN: --hgb stable, continue to monitor --monitor platelet counts closely - remains stable Urinary retention Patient voiding without catheter. --bedside urinal --restart external catheter PRN --cont tamsulosin 0.4mg daily Overflow diarrhea (Resolved: 11/15/2024) [employer] images from CT chest show large stool burden despite multiple loose BM's per day PLAN: --cont bowel regimen: senna, miralax Depression Voiced suicidal ideation on 11/09 but no plan, no homicidal ideation. No history of depression - current episode likely multifactorial: chronic life altering disease, loss of , loss of independence. Plan: --OP psychiatry referral (pt agreeable) Insomnia Melatonin is prescribed for sleep Ambien 5mg added Nocturnal desaturation study was ordered on 11/14/2024. Result pending. Incidental findings requiring follow up: Diet: DIET CARDIAC DVT Prophylaxis: Heparin (DVT Prophylaxis Dose) Code Status: LIMITED RESUSCITATION-PRIOR AND AFTER ARREST [place] Candidate?: No Electronically Signed By: Kait Betancourt MD 11/15/2024 2:13 PM [1] 0.9% NaCl 3 mL Intracatheter q8h aspirin 81 mg Oral QDAY atorvastatin 80 mg Oral AT BEDTIME [Held by Provider] furosemide 40 mg Oral QDAY gadobenate dimeglumine Intravenous Contrast - Once gadobenate dimeglumine Intravenous Contrast - Once gadobenate dimeglumine Intravenous Contrast - Once heparin 5,000 Units Subcutaneous q8h magnesium sulfate 2 g Intravenous Once melatonin 3 mg Oral AT BEDTIME metoprolol succinate XL 24hr 25 mg Oral QDAY pantoprazole EC 40 mg Oral QDAY polyethylene glycol 3350 17 g Oral QDAY [Held by Provider] sacubitril-valsartan 1 tablet Oral BID senna 8.6 mg Oral QDAY spironolactone 12.5 mg Oral QDAY tamsulosin 0.4 mg Oral QDAY [2] SALINE LOCK, INSERT AND MAINTAIN AND 0.9% NaCl AND 0.9% NaCl acetaminophen artificial tears fluticasone propionate saline nasal spray throat lozenge zolpidem [3] Cosigned by Raoul Ga DO at 11/15/2024 5:03 PM CDT Associated attestation - Raoul Ga DO - 11/15/2024 5:03 PM CDT I have verified the documentation of the resident including all history, exam, and medical decision-making details. I have personally performed a physical exam and have personally reviewed the data to support my medical decision-making as outlined in the resident???s note, and I arrive independently at the same conclusion. Hepatic trauma, initial encounter (POA: Unknown) Other specified anemias (POA: Unknown) Urinary retention (POA: Unknown) Heart failure with reduced ejection fraction (HCC) (POA: Unknown) Cardiogenic shock (HCC) (POA: Unknown) Elevated troponin (POA: Unknown) Transaminitis (POA: Yes) Thrombocytopenia (POA: Unknown) Hyponatremia (POA: No) Depression (POA: No) Hyponatremia (POA: No) Insomnia (POA: No) No sleep for several days despite trazodone and melatonin. Discussed with patient, he would like tostart ambien. Will hold trazodone. Will monitor this evening. Raoul Ga, Internal Medicine 5:01 PM 11/15/2024 * Queenie Sanford RN - 11/15/2024 12:13 AM CDT Problem: Skin/Tissue Integrity - Adult Goal: Skin integrity remains intact Description: INTERVENTIONS: Outcome: Progressing Goal: Incisions, wounds, or drain sites healing without S/S of infection Description: INFECTIONS: Outcome: Progressing Goal: Oral mucous membranes remain intact Description: INTERVENTIONS: Outcome: Progressing Problem: Neurosensory - Adult Goal: Achieves stable or improved neurological status Description: INTERVENTIONS Outcome: Progressing Goal: Achieves maximal functionality and self care Description: INTERVENTIONS: Outcome: Progressing Problem: Respiratory - Adult Goal: Achieves optimal ventilation and oxygenation Description: INTERVENTIONS: Outcome: Progressing * Kait Betancourt MD - 11/14/2024 4:15 PM CDT Images from the original note were not included. [facility] Internal Medicine Progress Note Name: Gabino Ocampo Room/Bed: [facility]/ : 1950 74 year old PCP: No primary care provider on file. Admit Date/Time: 11/01/2024 9:26 PM LOS: 13 Subjective Interval update: 11/14/2024: Today patient reports no new onset of symptoms. He appears oriented and says he feels better as compared to yesterday. He was lying comfortably lying on sofa and complained of mild cough and dry nose. Additionally he also reported lack of sleep. Hospital course: Patient is a 74 year old male with the past medical history of multi-vessel Coronary artery disease(60% stenosis of proximal/mid LAD, 100% stenosis of right posterolateral descending branch of RCA, 50% stenosis of left main coronary artery, moderate Left circumflex artery stenosis, ECG suggestive of inferior wall infarct), Systolic Heart Failure (LV ejection fraction of 26% with global LV wall hypokinesia, CXR evident of cardiomegaly and bilateral ground glass pulmonary interstitial infiltrates), presented to an OSH facility on 10/30/2024 with the chief complaint of acute onset of chest pain, nausea, and vomiting. The Patient presented with the same symptoms a week earlier on 10/23/2024 but left against medical advice. The chest pain was associated with dyspnea, nausea, stomach pain, and labs were significant for AST>7000, ALT> 5800. Additionally renal function tests were significant for pre-renal KASEY. A preliminary suspicion of Acute Liver Failure secondary to cardiogenic shock (shock liver), especially in the setting of systolic heart failure due to underlying CAD, complicated by pre-renal KASEY was made. The patient was transferred to [facility] on 11/01/2024 where his Liver function tests were again remarkable for Acute Liver Injury (ALT= 3970, AST = 3174, decreased serum albumin [2g/dl], decreased serum total protein [4.6 g/dl], hyperbilirubinemia, hyperammonemia, & serum pseudohypocalcemia secondary to hypoalbuminemia) with superimposed pre-renal KASEY (BUN= 95, Cr= 3.85, BUN:Cr = 24.67, eGFR = 15). He complained of abdominal pain, shortness of breath,cough, and congestion. He denied any alcoholintake. Patient denied having knowledge of any liver disease or illness in the past. His cardiac markers done on the same day revealed Troponin-1 =113 ng/L and BNP= 847 pg/ml. Physical symptoms coupled to cardiac markers elevation prompted Echocardiography that further revealed 26% with a moderately dilated LV, globally hypokinetic LV wall motion, and severely reduced systolic function. Dilated RV but with normal systolic function. Patient underwent cardiac catheterization. CT thoracic also revealed atherosclerosis and calcification of aortic arch. Patient was given IV Dobutamine to restore his cardia function which in turn restored his hepatic perfusion and gradually his liver parameters returned to normal. Fluid resuscitation corrected his renal perfusion bringing his renal labortary parameters back to normal. Objective Temp: [98.1 ??F (36.7 ??C)-98.2 ??F (36.8 ??C)] 98.1 ??F (36.7 ??C) Pulse: [81-85] 83 Resp: [18-20] 20 BP: (88-111)/(61-80) 94/62 Weight change: Intake/Output Summary (Last 24 hours) at 11/14/2024 1615 Last data filed at 11/14/2024 0556 Gross per 24 hour Intake 400 ml Output 300 ml Net 100 ml Physical Exam: Physical Exam Patient is well oriented to time, place, person, situation, and surroundings lying comfortably in on sofa in supine recumbent position with an IV cannula in his left forearm. GCS:15/15 Constitutional: Appearance: Normal appearance. HENT: Head: Normocephalic. Cardiovascular: Rate and Rhythm: Normal rate.Regular rhythm. Pulmonary: Effort: Pulmonary effort is normal. Breath sounds: Normal breath sounds. Abdominal: General: Abdomen is flat. Palpations: Abdomen is soft. Musculoskeletal: Cervical back: Normal range of motion and neck supple. Neurological: General: No focal deficit present. Mental Status: He is alert and oriented to person, place, and time. However, patient appeared a little forgetful. Psychiatric: Mood and Affect: Mood normal. Scheduled Medications: Medications[1] PRN Medications: Medications[2] Continuous Infusions: Medications[3] Laboratory Data Recent Labs Component Name 11/14/2411311/13/2440211/12/24252 WBC 7.8 7.7 9.2 HGB 10.8* 10.0* 10.5* HCT 32.4* 29.8* 30.9* PLTCOUNT 252 216 194 MCV 89.3 89.8 89.3 Recent Labs Component Name 11/14/2411311/13/2440211/12/24252 PT 14.0 14.2 14.2 INR 1.1 1.1 1.1 Recent Labs Component Name 11/14/2411311/13/2440211/12/24252 NA 132* 133* 132* POTASSIUM 4.6* 4.3 4.5 CL 103 103 103 CO2 24 BUN 14 9 11 CREATININE 0.94 0.90 0.84 Recent Labs Component Name 11/14/24 0114 11/13/24 0403 11/12/24 0253 CALCIUM 7.9* 7.3* 7.7* PHOS 3.0 3.1 2.9 Recent Labs Component Name 11/14/24 0114 11/13/24 0403 11/12/24 0253 PROT 5.5* 4.6* 4.7* ALB 2.5* 2.0* 2.2* ALKPHOS 126 106 109 AST 46* 42* 43* ALT 101* 99* 117* TBILI 0.8 0.7 0.8 No results for input(s): CKTOTAL, CKMBCK2, TROPONINI in the last 66796 hours. No results for input(s): VANCORNDM, VANCTROUGH in the last 31588 hours. Microbiology Results (Displays last 21 days for this encounter ONLY) Procedure Component Value - Date/Time CULTURE BLOOD [[id number]] (Normal) Collected: 11/02/241758 Lab Status: Final result Specimen: Blood from BC Peripheral 1 Updated: 11/07/24 2332 Culture No growth day 5 CULTURE BLOOD [[id number]] (Normal) Collected: 11/02/241758 Lab Status: Final result Specimen: Blood from BC Peripheral 2 Updated: 11/07/24 2332 Culture No growth day 5 RESPIRATORY PANEL WITH SARS-COV-2 BY PCR ([facility]) [[id number]] (Normal) Collected: 11/02/24 0818 Lab Status: Final result Specimen: Microbiology from Nasopharyngeal Updated: 11/02/24 1624 Adenovirus PCR Not detected Coronavirus 229E PCR Not detected Coronavirus HKU1 PCR Not detected Coronavirus NL63 PCR Not detected Coronavirus OC43 PCR Not detected COVID-19 PCR Not detected Human Metapneumovirus PCR Not detected Human Rhinovirus/Enterovirus PCR Not detected Influenza A PCR Not detected Influenza B PCR Not detected Parainfluenza Virus 1 PCR Not detected Parainfluenza Virus 2 PCR Not detected Parainfluenza Virus 3 PCR Not detected Parainfluenza Virus 4 PCR Not detected Respiratory Syncytial Virus PCR Not detected Bordetella parapertussis PCR Not detected Bordetella pertussis PCR Not detected Chlamydia pneumoniae PCR Not detected Mycoplasma pneumoniae PCR Not detected Narrative: This nucleic amplification assay has received FDA authorization via the [employer] Pathway. Imaging No results found. Relevant labs and imaging data reviewed on Epic. Assessment and Plan Hepatic trauma, initial encounter (POA: Unknown) Other specified anemias (POA: Unknown) Urinary retention (POA: Unknown) Heart failure with reduced ejection fraction (HCC) (POA: Unknown) Cardiogenic shock (HCC) (POA: Unknown) Elevated troponin (POA: Unknown) Transaminitis (POA: Yes) Thrombocytopenia (POA: Unknown) Hyponatremia (POA: No) Overflow diarrhea (POA: No) Depression (POA: No) Hyponatremia (POA: No) Assessment & Plan Cardiogenic shock (HCC) Elevated troponin Heart failure with reduced ejection fraction (HCC) Managed per cardiology. PLAN: --cont lipitor 80mg, metoprolol succinate 25 mg, spironolactone 12.5 mg --cont holding lasix 40mg PO daily --hold entresto 24-26 BID and jardiance 10mg qday - awaiting cards/CTS recs --cont fluid restriction 1800mL, --Pending MRI cardiac study. Hyponatremia Chronic hyponatremia. Remains euvolemic, previously hypovolemic. Mild improvement w fluid restriction. Usom>480 Yaneth>95. TSH WNL. Working ddx: heart failure/ low effective arterial blood volume vs CKD vs adrenal insufficiency vs SIADH Hypotonic, euvolemic/hypovolemic. PLAN: --cont holding lasix --cont fluid restrict 1800 mL --consider ACTH/cortisol workup if no further improvement in Na+ with fluid restriction Hepatic trauma, initial encounter Transaminitis Ddx: shock liver vs acetaminophen toxicity vs autoimmune vs toxicity from supplements vs autoimmune Transaminases markedly elevated on admission but downtrending now Unclear baseline - no close PCP followup Ultrasound with no clear etiology for liver injury. No ascites. Trace fluid morrisons pouch. - MPO/PR3 autoantibodies negative - Liver-kidney microsomal antibody IgG negative - MEREDITH not detected - [id number] elevated at 254, but likely a result of recent transfusions - ceruloplasmin normal - F-Actin antibody IgG normal - mitochondrial M2 antibody normal - hepatitis panel normal PLAN: --dc all OTC supplements IP --daily CBC, CMP, INR Other specified anemias Thrombocytopenia Iron panel consistent with chronic disease PLAN: --hgb stable, continue to monitor --monitor platelet counts closely - remains stable Urinary retention Patient voiding without catheter. --bedside urinal --restart external catheter PRN --cont tamsulosin 0.4mg daily Overflow diarrhea [employer] images from CT chest show large stool burden despite multiple loose BM's per day PLAN: --cont bowel regimen: senna, miralax Depression Voiced suicidal ideation on 11/09 but no plan, no homicidal ideation. No history of depression - current episode likely multifactorial: chronic life altering disease, loss of , loss of independence. Plan: --OP psychiatry referral (pt agreeable) Insomnia Melatonin is prescribed for sleep Incidental findings requiring follow up: Diet: DIET CARDIAC DVT Prophylaxis: Heparin (DVT Prophylaxis Dose) Code Status: LIMITED RESUSCITATION-PRIOR AND AFTER ARREST [employer] Candidate?: No Electronically Signed By: Kait Betancourt MD 11/14/2024 4:15 PM [1] 0.9% NaCl 3 mL Intracatheter q8h aspirin 81 mg Oral QDAY atorvastatin 80 mg Oral AT BEDTIME [Held by Provider] furosemide 40 mg Oral QDAY heparin 5,000 Units Subcutaneous q8h melatonin 3 mg Oral AT BEDTIME metoprolol succinate XL 24hr 25 mg Oral QDAY pantoprazole EC 40 mg Oral QDAY polyethylene glycol 3350 17 g Oral QDAY [Held by Provider] sacubitril-valsartan 1 tablet Oral BID senna 8.6 mg Oral QDAY spironolactone 12.5 mg Oral QDAY tamsulosin 0.4 mg Oral QDAY [2] SALINE LOCK, INSERT AND MAINTAIN AND 0.9% NaCl AND 0.9% NaCl artificial tears fluticasone propionate saline nasal spray throat lozenge traZODone [3] Cosigned by Raoul Ga DO at 11/14/2024 5:35 PM CDT Associated attestation - Raoul Ga DO - 11/14/2024 5:35 PM CDT I have verified the documentation of the resident including all history, exam, and medical decision-making details. I have personally performed a physical exam and have personally reviewed the data to support my medical decision-making as outlined in the resident???s note, and I arrive independently at the same conclusion. Hepatic trauma, initial encounter (POA: Unknown) Other specified anemias (POA: Unknown) Urinary retention (POA: Unknown) Heart failure with reduced ejection fraction (HCC) (POA: Unknown) Cardiogenic shock (HCC) (POA: Unknown) Elevated troponin (POA: Unknown) Transaminitis (POA: Yes) Thrombocytopenia (POA: Unknown) Hyponatremia (POA: No) Overflow diarrhea (POA: No) Depression (POA: No) Hyponatremia (POA: No) Insomnia (POA: No) Raoul Ga, Internal Medicine 5:35 PM 11/14/2024 * Melo Antonio RN - 11/14/2024 2:57 PM CDT Care Coordination Progress Note Expected Discharge Date: 11/16/2024 Discharge Plan: Will likely discharge to home when medically ready. Pending cardiac MRI and possible CABG. Family Support (Name and Phone): Extended Emergency Contact Information Primary Emergency Contact: José Miguel Ocampo Mobile Relation: Son Secondary Emergency Contact: Edgard Ocampo Mobile Relation: Son Transportation at Discharge: Family: READMISSION RISK SCORE is 11 at 2:57 PM 11/14/2024.: Name: Melo Antonio RN [id number] * Alda Padilla PT - 11/14/2024 2:47 PM CDT [facility] Physical Medicine and Rehabilitation Physical Therapy Progress Note Patient: Gabino Ocampo Med Record Number: [id number] Date of : 1950 Age: [age] year old PPE worn by staff: gloves;mask - procedural PPE worn by patient: gown - patient, clean;socks - clean Tech: None Recommendations: Discharge PT Discharge Recommendations: Patient would benefit from ongoing therapy with home health Recommended Transportation Method: Private Car Patient currently using Wheeled Walker and has equipment at home. No equipment needs if d/c home. SUBJECTIVE: Subjective: Pt agreeable to therapy session. What matters most to this patient? Gong home Pain Assessment: Pain Assessment Pain Scale/Observation: No/denies pain PRECAUTIONS: Weight Bearing Status: (No WB restrictions noted) Activity Level: Activity as Tolerated OBJECTIVE: At start of therapy session, patient found in bed and with no alarm General Appearance: elderly male in NAD Vitals/Observations: Pt denied dizziness, chest pain, SOB, and nausea during activity or position changes. In NAD throughout session. Mental Status/Cognition: Level of Consciousness-Adult: (A&O x 4) Cognition: (A&O x 4) Attention Span: Appears intact Memory: Decreased short term memory Following Commands: Follows one step commands consistently Safety Judgement: Decreased awareness of need for safety Awareness of Errors: Decreased awareness of deficits Problem Solving: Assistance required to identify errors made Mobility: A gait belt and non-slip socks were used for all out of bed activity this date. Bed Mobility: Rolling: Complete Forrest Supine to Sit: Complete Forrest with HOB in semi-fowlers position Sit to Supine: Activity Does Not Occur (in recliner at end of session) Transfers: Sit to Stand: Stand By Assist Stand to Sit: Stand By Assist Bed to Chair: Stand By Assist Type of Transfer: Other (Comment) (from ambulation w/o AD and SBA) Toilet Transfers: Stand By Assist Transfer Device: Gait belt Gait: Weight Bearing Status: (No WB restrictions noted) Distance Ambulated (ft): 300 FEET Ambulation: Assistive Device: Gait Belt Ambulation: Level of Assistance: Stand By Assist Ambulation: Gait Deviations: Step Length - Decreased;Push Off - Decreased;Heel Strike - Decreased Balance: Sitting - Static: Good Sitting - Dynamic: Good Standing - Static: Good -;Without Upper Extremity Support Standing - Dynamic: Fair +;Without Upper Extremity Support ACTIVITY TOLERANCE: Activity Tolerance: Complains of fatigue after standing activity/gait TREATMENT/INTERVENTIONS: bed mobility training, transfer training, gait training, and monitoring ofvitals AM-PAC 6 Clicks Mobility Raw Score:: 21 EDUCATION: While performing PT, Patient was instructed in:functional mobility training, safety awareness/fall precautions , home exercise program, use of adaptive equipment, discharge planning, use of call light Presented to patient who demonstrates Fair understanding of instructions given. ASSESSMENT: Patient would benefit from additional Physical Therapy sessions to achieve the following functionalgoals to enhance independence. Short Term Goals: Goal Formation With patient Patient will perform bed mobility with modified independence - GOAL MET, SRG 11/13/24 Patient will transfer sit to/from stand with modified independence with least restrictive assistivedevice Patient will transfer bed to/from chair with modified independence with least restrictive assistivedevice Patient will ambulate 150 feet with modified independence with least restrictive assistive device Patient will ascend/descent 2 steps with modified independence with least restrictive assistive device Retirement Goal(s): Patient to be independent with functional mobility and self-care and should be able to safely discharge to prior level of care. INFORMED CONSENT TO TREATMENT: Plan of care including recommended therapy, goals and frequency, discussed with patient who understands and agrees to proceed. Equipment Issued: gait belt issued at prior session Plan: Patient continues to benefit from skilled therapy services., Continue with goals as established. If patient is discharged from the facility, this note serves as a discharge summary if further physical therapy visits did not occur. Refer to filed flowsheet for further details. Following therapy session, patient left in patient bedside chair , with waffle seat cushion in place, with chair alarm on and positioned under patient's buttocks , with call light within reach, with RNRajesh, aware, with therapy cues visible on white board, with fall mats in place, all lines/tubes intact. * Ciarra Morales OT - 11/14/2024 10:05 AM CDT [facility] Physical Medicine and Rehabilitation Occupational Therapy Progress & Discharge Note Patient: Gabino Ocampo Med Record Number: [id number] Date of : 1950 Age: [age] year old PPE worn by staff: gloves;mask - procedural Tech: N/A Recommendations: Discharge OT Discharge Recommendations: Patient at baseline per therapy evaluation and has no further skilledtherapy needs while in hospital Nurse contacted regarding patient status and/or discharge plan. Activity Level: as tolerated PRECAUTIONS: Weight Bearing Status: (No WB restrictions) SUBJECTIVE: Subjective: Pt is agreeable to participate. Pt states he has been up ad martina in room. PATIENT GOALS / WHAT MATTERS MOST TO THE PATIENT: Patient's Primary Concern: To go home Pain Assessment: Pain Assessment Pain Scale/Observation: No/denies pain OBJECTIVE: At start of therapy session, patient found in bed and with no alarm General Appearance: 74M in NAD Vitals: VSS via monitor. No s/s of distress, SOB, dizziness. Mental Status/Cognition: Patient A&Ox4. Patient with good safety awareness and good insight to deficits. Patient [id number]% of all commands. Mobility: a gait belt and non-slip socks were used for all out of bed activity this date. Bed Mobility: Supine to Sit: Complete Forrest with HOB flat Sit to Supine: Complete Forrest Transfers: Sit to Stand: Complete Forrest Stand to Sit: Complete Forrest Bed to Chair: Declined Toilet Transfers: Declined Transfer Device: Gait belt Functional Ambulation: Patient ambulated functional household distance with complete independence, no device. Balance: Sitting - Static: Good Sitting - Dynamic: Good Standing - Static: Good Standing - Dynamic: Good Activities of Daily Living: Lower Body Dressing: Complete Forrest Splint Issued/Checked: none ACTIVITY TOLERANCE: Activity Tolerance: Tolerates ADLs without rest breaks AM-PAC 6 Clicks Daily Activity Raw Score:: 24 TREATMENT/INTERVENTIONS: ADL training Adaptive equipment training Functional transfer training Endurance training Bed mobility Energy conservation Safety awareness EDUCATION: While performing OT, Patient was instructed in:functional mobility training, self-care training, energy conservation, safety awareness/fall precautions , home exercise program, pursed lip breathing techniques, use of adaptive equipment, discharge planning, use of call light Presented to patient who demonstrates Good understanding of instructions given. INFORMED CONSENT TO TREATMENT: Plan of care including recommended therapy, goals and frequency, discussed with patient who understands and agrees to proceed. ASSESSMENT: Patient demonstrated independence/ baseline with activities of daily living. No continued IP Occupational Therapy indicated at this time. Equipment Issued: none. Short Term Goals: all goals MET Goal Formation With patient Patient will perform lower extremity dressing independently Patient will transfer to standard toilet independently Patient will tolerate treatment 25 minutes and with good endurance Patient will demonstrate good understanding of safety education, energy conservation, modified sternal precautions , and adaptive equipment Soil Surveyor Goal(s): Patient to be independent/baseline with functional mobility and self care and be able to safely discharge to prior level of care Plan: Goals achieved. DC patient from skilled therapy services at this time. If patient is discharged from the facility, this note serves as a discharge summary if further occupational therapy visits did not occur. Refer to filed flowsheet for further details. Following therapy session, patient left in bed, with call light within reach, with therapy cues visible on white board, with fall mats in place, all lines/tubes intact. * Queenie Sanford RN - 11/13/2024 10:54 PM CDT Problem: Skin/Tissue Integrity - Adult Goal: Skin integrity remains intact Description: INTERVENTIONS: Outcome: Progressing Goal: Incisions, wounds, or drain sites healing without S/S of infection Description: INFECTIONS: Outcome: Progressing Goal: Oral mucous membranes remain intact Description: INTERVENTIONS: Outcome: Progressing Problem: Respiratory - Adult Goal: Achieves optimal ventilation and oxygenation Description: INTERVENTIONS: Outcome: Progressing Problem: Neurosensory - Adult Goal: Achieves stable or improved neurological status Description: INTERVENTIONS Outcome: Progressing Goal: Achieves maximal functionality and self care Description: INTERVENTIONS: Outcome: Progressing * Kait Betancourt MD - 11/13/2024 6:27 PM CDT [facility] Internal Medicine Progress Note Name: Gabino Ocampo Room/Bed: 737/01 : 1950 74 year old PCP: No primary care provider on file. Admit Date/Time: 11/01/2024 9:26 PM LOS: 12 Subjective Interval update: Patient is well oriented, appears vigilant, and reports no new onset of symptoms. I saw him before the clinical rounds and found him in lying comfortably lying in bed with no complains regarding any acute problem. Hospital course: Patient is a 74 year old male with the past medical history of multi-vessel Coronary artery disease(60% stenosis of proximal/mid LAD, 100% stenosis of right posterolateral descending branch of RCA, 50% stenosis of left main coronary artery, moderate Left circumflex artery stenosis, ECG suggestive of inferior wall infarct), Systolic Heart Failure (LV ejection fraction of 26% with global LV wall hypokinesia, CXR evident of cardiomegaly and bilateral ground glass pulmonary interstitial infiltrates), presented to an OSH facility on 10/30/2024 with the chief complaint of acute onset of chest pain, nausea, and vomiting. The Patient presented with the same symptoms a week earlier on 10/23/2024 but left against medical advice. The chest pain was associated with dyspnea, nausea, stomach pain, and labs were significant for AST>7000, ALT> 5800. Additionally renal function tests were significant for pre-renal KASEY. A preliminary suspicion of Acute Liver Failure secondary to cardiogenic shock (shock liver), especially in the setting of systolic heart failure due to underlying CAD, complicated by pre-renal KASEY was made. The patient was transferred to [facility] on 11/01/2024 where his Liver function tests were again remarkable for Acute Liver Injury (ALT= 3970, AST = 3174, decreased serum albumin [2g/dl], decreased serum total protein [4.6 g/dl], hyperbilirubinemia, hyperammonemia, & serum pseudohypocalcemia secondary to hypoalbuminemia) with superimposed pre-renal KASEY (BUN= 95, Cr= 3.85, BUN:Cr = 24.67, eGFR = 15). He complained of abdominal pain, shortness of breath,cough, and congestion. He denied any alcoholintake. Patient denied having knowledge of any liver disease or illness in the past. His cardiac markers done on the same day revealed Troponin-1 =113 ng/L and BNP= 847 pg/ml. Physical symptoms coupled to cardiac markers elevation prompted Echocardiography that further revealed 26% with a moderately dilated LV, globally hypokinetic LV wall motion, and severely reduced systolic function. Dilated RV but with normal systolic function. Patient underwent cardiac catheterization. CT thoracic also revealed atherosclerosis and calcification of aortic arch. Patient was given IV Dobutamine to restore his cardia function which in turn restored his hepatic perfusion and gradually his liver parameters returned to normal. Fluid resuscitation corrected his renal perfusion bringing his renal labortary parameters back to normal. Objective Temp: [98 ??F (36.7 ??C)-98.5 ??F (36.9 ??C)] 98 ??F (36.7 ??C) Pulse: [75-81] 80 Resp: [18-20] 20 BP: (78-101)/(44-60) 87/60 Weight change: Intake/Output Summary (Last 24 hours) at 11/13/20249 Last data filed at 11/13/2024 1750 Gross per 24 hour Intake 250 ml Output 350 ml Net -100 ml Physical Exam: Physical Exam Patient is well oriented to time, place, person, situation, and surroundings lying comfortably in bed in supine recumbent position with an IV cannula in his left forearm GCS:15/15 Constitutional: Appearance: Normal appearance. HENT: Head: Normocephalic. Cardiovascular: Rate and Rhythm: Regular rhythm. Tachycardia present. Pulmonary: Effort: Pulmonary effort is normal. Breath sounds: Normal breath sounds. Abdominal: General: Abdomen is flat. Palpations: Abdomen is soft. Musculoskeletal: Cervical back: Normal range of motion and neck supple. Neurological: General: No focal deficit present. Mental Status: He is alert and oriented to person, place, and time. Psychiatric: Mood and Affect: Mood normal. Scheduled Medications: Medications[1] PRN Medications: Medications[2] Continuous Infusions: Medications[3] Laboratory Data Recent Labs Component Name 11/13/2440211/12/2425211/11/24 024 WBC 7.7 9.2 12.0* HGB 10.0* 10.5* 10.3* HCT 29.8* 30.9* 30.4* PLTCOUNT 216 194 180 MCV 89.8 89.3 87.6 Recent Labs Component Name 11/13/2440211/12/243 11/11/24 0247 PT 14.2 14.2 14.4 INR 1.1 1.1 1.1 Recent Labs Component Name 11/13/2440211/12/24 02511/11/24 0247 NA 133* 132* 129* POTASSIUM 4.3 4.5 4.4 CL 103 103 98 CO2 BUN 9 11 13 CREATININE 0.90 0.84 0.89 Recent Labs Component Name 11/13/243 11/12/24 0253 11/11/24 0247 CALCIUM 7.3* 7.7* 7.5* PHOS 3.1 2.9 2.8 Recent Labs Component Name 11/13/24 0403 11/12/24 0253 11/11/24 0247 PROT 4.6* 4.7* 4.9* ALB 2.0* 2.2* 2.1* ALKPHOS 106 109 111 AST 42* 43* 54* ALT 99* 117* 145* TBILI 0.7 0.8 0.9 No results for input(s): CKTOTAL, CKMBCK2, TROPONINI in the last 62374 hours. No results for input(s): VANCORNDM, VANCTROUGH in the last 52272 hours. Microbiology Results (Displays last 21 days for this encounter ONLY) Procedure Component Value - Date/Time CULTURE BLOOD [[id number]] (Normal) Collected: 11/02/241758 Lab Status: Final result Specimen: Blood from BC Peripheral 1 Updated: 11/07/24 2332 Culture No growth day 5 CULTURE BLOOD [[id number]] (Normal) Collected: 11/02/241758 Lab Status: Final result Specimen: Blood from BC Peripheral 2 Updated: 11/07/24 2332 Culture No growth day 5 RESPIRATORY PANEL WITH SARS-COV-2 BY PCR ([facility]) [[id number]] (Normal) Collected: 11/02/24 0818 Lab Status: Final result Specimen: Microbiology from Nasopharyngeal Updated: 11/02/24 1624 Adenovirus PCR Not detected Coronavirus 229E PCR Not detected Coronavirus HKU1 PCR Not detected Coronavirus NL63 PCR Not detected Coronavirus OC43 PCR Not detected COVID-19 PCR Not detected Human Metapneumovirus PCR Not detected Human Rhinovirus/Enterovirus PCR Not detected Influenza A PCR Not detected Influenza B PCR Not detected Parainfluenza Virus 1 PCR Not detected Parainfluenza Virus 2 PCR Not detected Parainfluenza Virus 3 PCR Not detected Parainfluenza Virus 4 PCR Not detected Respiratory Syncytial Virus PCR Not detected Bordetella parapertussis PCR Not detected Bordetella pertussis PCR Not detected Chlamydia pneumoniae PCR Not detected Mycoplasma pneumoniae PCR Not detected Narrative: This nucleic amplification assay has received FDA authorization via the [place]way. Imaging No results found. Relevant labs and imaging data reviewed on [facility]. Assessment and Plan Hepatic trauma, initial encounter (POA: Unknown) Other specified anemias (POA: Unknown) Urinary retention (POA: Unknown) Heart failure with reduced ejection fraction (HCC) (POA: Unknown) Cardiogenic shock (HCC) (POA: Unknown) Elevated troponin (POA: Unknown) Transaminitis (POA: Yes) Thrombocytopenia (POA: Unknown) Hyponatremia (POA: No) Overflow diarrhea (POA: No) Depression (POA: No) Hyponatremia (POA: No) Assessment & Plan Cardiogenic shock (HCC) Elevated troponin Heart failure with reduced ejection fraction (HCC) Managed per cardiology. PLAN: --cont lipitor 80mg, metoprolol succinate 25 mg, spironolactone 12.5 mg --cont holding lasix 40mg PO daily --hold entresto 24-26 BID and jardiance 10mg qday - awaiting cards/CTS recs --cont fluid restriction 1800mL, --pending MRI cardiac study Hyponatremia Chronic hyponatremia. Remains euvolemic, previously hypovolemic. Mild improvement w fluid restriction. Usom>480 Yaneth>95. TSH WNL. Working ddx: heart failure/ low effective arterial blood volume vs CKD vs adrenal insufficiency vs SIADH Hypotonic, euvolemic/hypovolemic. PLAN: --cont holding lasix --cont fluid restrict 1800 mL --consider ACTH/cortisol workup if no further improvement in Na+ with fluid restriction Hepatic trauma, initial encounter Transaminitis Ddx: shock liver vs acetaminophen toxicity vs autoimmune vs toxicity from supplements vs autoimmune Transaminases markedly elevated on admission but downtrending now Unclear baseline - no close PCP followup Ultrasound with no clear etiology for liver injury. No ascites. Trace fluid morrisons pouch. - MPO/PR3 autoantibodies negative - Liver-kidney microsomal antibody IgG negative - MEREDITH not detected - [id number] elevated at 254, but likely a result of recent transfusions - ceruloplasmin normal - F-Actin antibody IgG normal - mitochondrial M2 antibody normal - hepatitis panel normal PLAN: --dc all OTC supplements IP --daily CBC, CMP, INR Other specified anemias Thrombocytopenia Iron panel consistent with chronic disease PLAN: --hgb stable, continue to monitor --monitor platelet counts closely - remains stable Urinary retention Patient voiding without catheter. --bedside urinal --restart external catheter PRN --cont tamsulosin 0.4mg daily Overflow diarrhea [employer] images from CT chest show large stool burden despite multiple loose BM's per day PLAN: --cont bowel regimen: senna, miralax Depression Voiced suicidal ideation on 11/09 but no plan, no homicidal ideation. No history of depression - current episode likely multifactorial: chronic life altering disease, loss of , loss of independence. Plan: --OP psychiatry referral (pt agreeable) Incidental findings requiring follow up: Diet: DIET CARDIAC DVT Prophylaxis: Heparin (DVT Prophylaxis Dose) Code Status: LIMITED RESUSCITATION-PRIOR AND AFTER ARREST [place] Candidate?: No Electronically Signed By: Kait Betancourt MD 11/13/2024 6:29 PM [1] 0.9% NaCl 3 mL Intracatheter q8h aspirin 81 mg Oral QDAY atorvastatin 80 mg Oral AT BEDTIME [Held by Provider] furosemide 40 mg Oral QDAY heparin 5,000 Units Subcutaneous q8h melatonin 3 mg Oral AT BEDTIME metoprolol succinate XL 24hr 25 mg Oral QDAY pantoprazole EC 40 mg Oral QDAY polyethylene glycol 3350 17 g Oral QDAY [Held by Provider] sacubitril-valsartan 1 tablet Oral BID senna 8.6 mg Oral QDAY spironolactone 12.5 mg Oral QDAY tamsulosin 0.4 mg Oral QDAY [2] SALINE LOCK, INSERT AND MAINTAIN AND 0.9% NaCl AND 0.9% NaCl artificial tears fluticasone propionate saline nasal spray throat lozenge traZODone [3] * Muna St OT - 11/13/2024 5:26 PM CDT [facility] Department of Physical Medicine & Rehabilitation Progress Note Patient: Gabino Ocampo Med Record Number: [id number] Date of : 1950 Age: [age] year old 11/13/24 1630 Missed Visit Missed Visit Other (Comment) (OT assisted pt to bed from bathroom, pt requesting to get back in bed and defer more activity 2/2 MRI transport coming shortly. OT willc ontinue to follow.) * Heide Gonzalez RN - 11/13/2024 1:53 PM CDT Case Management Progress Note Anticipated level of care at discharge: Unknown Discharge Disposition : Home pending medical readiness and recommendations Basic Needs Assessment (BNA) Score: Transportation at Discharge: Family Equipment at Home: Equipment at Home: Cane;Walker;Wheelchair Additional DME needed: Food Security: Within the past 12 months, you worried that your food would run out before you got the money to buymore.: Never true Within the past 12 months, the food you bought just didn't last and you didn't have money to get more.: Never true Name: Heide Gonzalez RN * Alda Padilla, PT - 11/13/2024 8:49 AM CDT [facility] Physical Medicine and Rehabilitation Physical Therapy Progress Note Patient: Gabino Ocampo Med Record Number: [id number] Date of : 1950 Age: [age] year old PPE worn by staff: gloves;mask - procedural PPE worn by patient: gown - patient, clean;socks - clean Tech: None Recommendations: Discharge PT Discharge Recommendations: Patient would benefit from ongoing therapy with home health Recommended Transportation Method: Private Car Patient currently using Wheeled Walker and has equipment at home. No equipment needs if d/c home. SUBJECTIVE: Subjective: Pt agreeable to therapy session - I'd like for someone to help me get my breakfast organized so I can eat. Pt encouraged to sit up in chair for breakfast, & preferably all meals, tospend time OOB, be upright while eating, promote better bowel motility, and decrease risk of complictions associated with bed rest. What matters most to this patient? Going home NATASHA Pain Assessment: Pain Assessment Pain Scale/Observation: No/denies pain PRECAUTIONS: Weight Bearing Status: (No WB restrictions noted) Activity Level: Activity as Tolerated OBJECTIVE: At start of therapy session, patient found in bed and with no alarm General Appearance: elderly male in NAD Vitals/Observations: VSS on RA. Pt denied dizziness, chest pain, SOB, and nausea during activity orposition changes. In NAD throughout session. Mental Status/Cognition: Level of Consciousness-Adult: (A&O x 4) Attention Span: Attends with cues to redirect Memory: Appears intact Following Commands: Follows one step commands consistently Safety Judgement: Decreased awareness of need for safety Awareness of Errors: Decreased awareness of deficits Problem Solving: Assistance required to identify errors made Mobility: A gait belt and non-slip socks were used for all out of bed activity this date. Bed Mobility: Rolling: Complete Forrest Supine to Sit: Complete Forrest with HOB in semi-fowlers position Sit to Supine: Activity Does Not Occur (Pt in recliner at end of session) Transfers: Sit to Stand: Stand By Assist Stand to Sit: Stand By Assist Bed to Chair: Stand By Assist Type of Transfer: Other (Comment) (stand-step from bed to recliner) Transfer Device: No Device Gait: Weight Bearing Status: (No WB restrictions noted) Distance Ambulated (ft): 4 FEET (deferred further ambulation at this time 2/2 wanting to eat breakfast) Ambulation: Assistive Device: None Ambulation: Level of Assistance: Stand By Assist Ambulation: Gait Deviations: Push Off - Decreased;Heel Strike - Decreased;Hip/knee flexion during swing phase-- decreased Balance: Sitting - Static: Good Sitting - Dynamic: Good Standing - Static: Good -;Without Upper Extremity Support Standing - Dynamic: Fair +;Without Upper Extremity Support ACTIVITY TOLERANCE: Activity Tolerance: Requires rest breaks TREATMENT/INTERVENTIONS: bed mobility training, transfer training, and gait training AM-PAC 6 Clicks Mobility Raw Score:: 20 EDUCATION: While performing PT, Patient was instructed in:functional mobility training, safety awareness/fall precautions , use of adaptive equipment, discharge planning, use of call light Presented to patient who demonstrates Fair understanding of instructions given. ASSESSMENT: Patient would benefit from additional Physical Therapy sessions to achieve the following functionalgoals to enhance independence. Short Term Goals: Goal Formation With patient Patient will perform bed mobility with modified independence - GOAL MET, SR 11/13 Patient will transfer sit to/from stand with modified independence and with least restrictive assistive device Patient will transfer bed to/from chair with modified independence and with least restrictive assistive device Patient will ambulate 150 feet with modified independence and with least restrictive assistive device Patient will ascend/descent 2 steps with modified independence and with least restrictive assistivedevice Soil Surveyor Goal(s): Patient to be independent with functional mobility and self-care and should be able to safely discharge to prior level of care. INFORMED CONSENT TO TREATMENT: Plan of care including recommended therapy, goals and frequency, discussed with patient who understands and agrees to proceed. Equipment Issued: gait belt issued at prior session Plan: Patient continues to benefit from skilled therapy services., Continue with goals as established. If patient is discharged from the facility, this note serves as a discharge summary if further physical therapy visits did not occur. Refer to filed flowsheet for further details. Following therapy session, patient left in patient bedside chair , with waffle seat cushion in place, with chair alarm on and positioned under patient's buttocks , with call light within reach, with RNRajesh, aware, with therapy cues visible on white board, with fall mats in place, all lines/tubes intact. * Jesse Comer RN - 11/13/2024 1:40 AM CDT progressing * Oly Pavon RN - 11/12/2024 4:01 PM CDT Problem: Skin/Tissue Integrity - Adult Goal: Skin integrity remains intact Description: INTERVENTIONS: 11/12/2024 1601 by Oly Pavon RN Outcome: Progressing 11/12/2024 1601 by Oly Pavon RN Outcome: Not Progressing Goal: Incisions, wounds, or drain sites healing without S/S of infection Description: INFECTIONS: 11/12/2024 1601 by Oly Pavon RN Outcome: Progressing 11/12/2024 1601 by Oly Pavon RN Outcome: Not Progressing Goal: Oral mucous membranes remain intact Description: INTERVENTIONS: 11/12/2024 1601 by Oly Pavon RN Outcome: Progressing 11/12/2024 1601 by Oly Pavon RN Outcome: Not Progressing Problem: Neurosensory - Adult Goal: Achieves stable or improved neurological status Description: INTERVENTIONS 11/12/2024 1601 by Oly Pavon RN Outcome: Progressing 11/12/2024 1601 by Oly Pavon RN Outcome: Not Progressing Goal: Achieves maximal functionality and self care Description: INTERVENTIONS: 11/12/2024 1601 by Oly Pavon RN Outcome: Progressing 11/12/2024 1601 by Oly Pavon RN Outcome: Not Progressing Problem: Respiratory - Adult Goal: Achieves optimal ventilation and oxygenation Description: INTERVENTIONS: 11/12/2024 1601 by Oly Pavon RN Outcome: Progressing 11/12/2024 160 by Oly Pavon RN Outcome: Not Progressing Problem: Cardiovascular - Adult Goal: Maintains optimal cardiac output and hemodynamic stability Description: INTERVENTIONS: 11/12/2024 1601 by Oly Pavon RN Outcome: Progressing 11/12/2024 160 by Oly Pavon RN Outcome: Not Progressing Goal: Absence of cardiac dysrhythmias or at baseline Description: INTERVENTIONS: 11/12/2024 1601 by Oly Pavon RN Outcome: Progressing 11/12/2024 160 by Oly Pavon RN Outcome: Not Progressing Problem: Neurovascular Musculoskeletal - Adult Goal: Return mobility to safest level of function Description: INTERVENTIONS: 11/12/2024 1601 by Oly Pavon RN Outcome: Progressing 11/12/2024 1601 by Oly Pavon RN Outcome: Not Progressing Goal: Return ADL status to a safe level of function Description: INTERVENTIONS: 11/12/2024 1601 by Oly Pavon RN Outcome: Progressing 11/12/2024 1601 by Oly Pavon RN Outcome: Not Progressing Goal: Absence or reduction of edema Description: INTERVENTIONS 11/12/2024 1601 by Oly Pavon RN Outcome: Progressing 11/12/2024 1601 by Oly Pavon RN Outcome: Not Progressing Goal: Maintains or improves tissue perfusion Description: INTERVENTIONS 11/12/2024 1601 by Oly Pavon RN Outcome: Progressing 11/12/2024 1601 by Oly Pavon RN Outcome: Not Progressing Problem: Gastrointestinal - Adult Goal: Maintains or returns to baseline bowel function Description: INTERVENTIONS: 11/12/2024 1601 by Oly Pavon RN Outcome: Progressing 11/12/2024 160 by Oly Pavon RN Outcome: Not Progressing Goal: Maintains adequate nutritional intake Description: INTERVENTIONS: 11/12/2024 1601 by Oly Pavon RN Outcome: Progressing 11/12/2024 160 by Oly Pavon RN Outcome: Not Progressing Problem: Genitourinary - Adult Goal: Maintains or returns to baseline genitourinary function Description: INTERVENTIONS: 11/12/2024 1601 by Oly Pavon RN Outcome: Progressing 11/12/2024 160 by Oly Pavon RN Outcome: Not Progressing Goal: Urinary catheter remains patent Description: INTERVENTIONS: 11/12/2024 1601 by Oly Pavon RN Outcome: Progressing 11/12/2024 160 by Oly Pavon RN Outcome: Not Progressing Problem: Metabolic/Fluid and Electrolytes - Adult Goal: Electrolytes maintained within normal limits Description: INTERVENTIONS: 11/12/2024 1601 by Oly Pavon RN Outcome: Progressing 11/12/2024 160 by Oly Pavon RN Outcome: Not Progressing Goal: Hemodynamic stability and optimal renal function maintained Description: INTERVENTIONS: 11/12/2024 1601 by Oly Pavon RN Outcome: Progressing 11/12/2024 1601 by Oly Pavon RN Outcome: Not Progressing Goal: Glucose maintained within prescribed range Description: INTERVENTIONS: 11/12/2024 1601 by Oly Pavon RN Outcome: Progressing 11/12/2024 1601 by Oly Pavon RN Outcome: Not Progressing Problem: Fall Risk Goal: Fall risk and fall related injury risk are minimized (interventions related to the fall risk can be found in the flowsheet documentation) 11/12/2024 1601 by Oly Pavon RN Outcome: Progressing 11/12/2024 1601 by Oly Pavon RN Outcome: Not Progressing Problem: Hematologic - Adult Goal: Maintains hematologic stability Description: INTERVENTIONS: 11/12/2024 1601 by Oly Pavon RN Outcome: Progressing 11/12/2024 160 by Oly Pavon RN Outcome: Not Progressing Problem: Pain/Discomfort Goal: Patient exhibits reduced pain/discomfort as evidenced by pain scores 11/12/2024 160 by Oly Pavon RN Outcome: Progressing 11/12/2024 160 by Oly Pavon RN Outcome: Not Progressing Goal: Patient uses pharmacological and non-pharmacological pain management strategies. 11/12/2024 160 by Oly Pavon RN Outcome: Progressing 11/12/2024 160 by Oly Pavon RN Outcome: Not Progressing Goal: Patient verbalizes acceptable level of pain relief and ability to engage in desired activity. 11/12/2024 160 by Oly Pavon RN Outcome: Progressing 11/12/2024 160 by Oly Pavon RN Outcome: Not Progressing Problem: Balance Goal: LTG - Patient will maintain standing and sitting balance to allow for completion of daily activities 11/12/2024 160 by Oly Pavon RN Outcome: Progressing 11/12/2024 160 by Oly Pavon RN Outcome: Not Progressing Goal: LTG - Patient will demonstrate Intervention to enhance balance for safe completion of daily activities 11/12/2024 1601 by Oly Pavon RN Outcome: Progressing 11/12/2024 1601 by Oly Pavon RN Outcome: Not Progressing * Gutierrez Nayak - 11/12/2024 8:10 AM CDT [facility] INTERNAL MEDICINE PROGRESS NOTE Patient: Gabino Ocampo Sex: male Age: [age] year old Date of : 1950 Date of Admission: 11/01/2024 Date: 11/12/2024 LOS: 11 SUBJECTIVE Interval History: Patient was seen before rounds. There were no overnight events. Patient did not have trouble sleeping albeit taking trazodone. Patient is given melatonin alongside trazodone to help sleep. Does not endorse nausea, emesis, sob, fever/chills. Hospital Course: Gabino Ocampo is a 74 year old male with past medical history of CAD, HFrEF of 25% who presentedfrom OSH due to acute liver injury complicated by KASEY and cardiogenic shock in setting of reduced EF of 25%. Patient presented to OSH 3 weeks ago due to SOB but left against medical advice. He returned the following week displaying similar symptoms (nausea, lack of appetite, stomach pain) and foundto have AST>7000/ALT>5800 and elevated troponin. Patient transferred to [facility] for liver team. Before being transferred, patient received N-acetylcysteine and dobutamine due to the concern for cardiogenic shock. Patient was Aox3 and had diffuse abdominal pain on admission. He denies any hx of liver disease or illness in the past. On 11/02, US with doppler shows no hepatic lesions. US with doppler shows no hepatic lesions or intrahepatic biliary dilation. TTE shows EF of 25% and moderately dilated LV, globally hypokinetic LV wall motion, and severely reduced systolic function. Patient underwent R/L heart cath, which showed ischemic cardiomyopathy. MRI is currently pending to further manage his atherosclerotic vascular disease (CPI vs CABG). OBJECTIVE Vital Signs: Vitals: 11/11/24 1549 11/11/24 2019 11/12/24 0355 11/12/24 0820 BP: 111/79 107/80 107/75 107/72 Pulse: 90 96 87 80 Resp: 17 18 Temp: 98.2 ??F (36.8 ??C) 98.6 ??F (37 ??C) 98.4 ??F (36.9 ??C) 98 ??F (36.7 ??C) SpO2: 98% 97% 97% 97% Weight: Height: Temp Min: 97.2 ??F (36.2 ??C) Max: 99.1 ??F (37.3 ??C), Pulse Min: 43 Max: 142, Resp Min: 10 Max: 45, BP Min: 89/57 Max: 141/87 Intake & Output: In: - Out: 1670 [Urine:1670] Physical Exam: Physical Exam Constitutional: Appearance: Normal appearance. HENT: Head: Normocephalic. Cardiovascular: Rate and Rhythm: Regular rhythm. Tachycardia present. Pulmonary: Effort: Pulmonary effort is normal. Breath sounds: Normal breath sounds. Abdominal: General: Abdomen is flat. Palpations: Abdomen is soft. Musculoskeletal: Cervical back: Normal range of motion and neck supple. Neurological: General: No focal deficit present. Mental Status: He is alert and oriented to person, place, and time. Psychiatric: Mood and Affect: Mood normal. Current Medications: Scheduled: Medications[1] Continuous: Medications[2] PRN: Medications[3] Significant Lab Results: 11/12 Hgb 10.3->10.5 Na 129->132 Imaging & Studies: MRI pending, most likely Monday 11/13 ASSESSMENT & PLAN Hepatic trauma, initial encounter (POA: Unknown) Other specified anemias (POA: Unknown) Urinary retention (POA: Unknown) Heart failure with reduced ejection fraction (HCC) (POA: Unknown) Cardiogenic shock (HCC) (POA: Unknown) Elevated troponin (POA: Unknown) Transaminitis (POA: Yes) Thrombocytopenia (POA: Unknown) Hyponatremia (POA: No) Overflow diarrhea (POA: No) Depression (POA: No) Hyponatremia (POA: No) Cardiogenic Shock Elevated Troponin Heart Failure with reduced ejection fraction (HCC) Patient had an ECG done at OSH showed EF 25%.R/L heart cath. was remarkable for ischemic cardiomyopathy. 11/02- BNP 847 Troponin 113,137, 169 Lactate 2.8, 2.8 Cr 3.85 t3V CAD Plan: -Entresto 24-26 BID- holding -Jardiance 10 mg Qdaily- not started yet -Metoprolol 25 mg qdaily -Spironolactone 12.5 mg -Lasix 40 PO daily-held today -Fluid restrict 1800 ml -Cardiac MRI pending -If MRI is substantial, patient will undergo CPI vs CABG -Cardiology referral -Started lipitor 80 mg Acute Shock Syndrome, at admission Transaminitis Ddx: Shock liver vs acetaminophen toxicity vs autoimmune Transaminitis markedly elevated on admission but downtrending now. US with no clear etiology for liver injury. -Hepatitis panel normal -Liver lab panels negative Plan: -Daily CBC, CMP, renal function panel Hyponatremia Ddx: Heart failure with low effective arterial blood volume vs KASEY vs adrenal insufficiency vs SIADH -Patient being treated for hypovolemic hyponatremia -Urine osmo. Downtrending Plan: -9% NaCl 3ml -hold lasix -fluid restrict 1800 ml -Replete Mg 4 mg -Consider Tolvaptan if tx resistant Thrombocytopenia -Iron panel consistent with chronic disease -Hgb stable, cardiorenal monitoring Plan: -If Hgb<7, consider transfusion of RBCs -stable platelet count 11/12 Urinary retention -Patient does not mention voiding difficulties 11/12 Plan: -can restart external catheter if needed -tamsulosin .4 mg daily Overflow diarrhea -Patient does not complain of absent, irregular BM currently Plan: -Senna, Miralax prn Depression No hx of depression. Voiced suicidal ideation on 11/09, but no no homicidal ideation Plan: -patient is agreeable to an outpatient psychiatry referral Code: Limited Resuscitation- Prior and After Arrest [place]ordley Candidate: No Diet: Diet Cardiac Electrolytes: Replete PRN DVT Prophylaxis: Heparin (DVT Prophylaxis Dose) The above assessment and plan will be discussed with the attending. This note is not final until attested by attending physician. Gutierrez Nayak Medical Student [facility] 11/12/2024 10:45 AM [1] 0.9% NaCl 3 mL Intracatheter q8h aspirin 81 mg Oral QDAY atorvastatin 80 mg Oral AT BEDTIME [Held by Provider] furosemide 40 mg Oral QDAY heparin 5,000 Units Subcutaneous q8h magnesium sulfate 4 g Intravenous Once melatonin 3 mg Oral AT BEDTIME metoprolol succinate XL 24hr 25 mg Oral QDAY pantoprazole EC 40 mg Oral QDAY polyethylene glycol 3350 17 g Oral QDAY potassium - sodium phosphates 1 packet Oral TID WC potassium chloride 40 mEq Oral BID WC [Held by Provider] sacubitril-valsartan 1 tablet Oral BID senna 8.6 mg Oral QDAY spironolactone 12.5 mg Oral QDAY tamsulosin 0.4 mg Oral QDAY [2] [3] SALINE LOCK, INSERT AND MAINTAIN AND 0.9% NaCl AND 0.9% NaCl fluticasone propionate saline nasal spray throat lozenge traZODone Cosigned by Joel Cao III, MD at 11/14/2024 4:45 PM CDT * Mariangel Mario MD - 11/12/2024 6:55 AM CDT [facility] Internal Medicine Progress Note Name: Gabino Ocampo Room[facility]Bed: [facility] : 1950 74 year old PCP: No primary care provider on file. Admit Date/Time: 11/01/2024 9:26 PM LOS: 11 Subjective Interval update: NAEO. Notes improvement in cough. Reports good output. No new acute concerns per pt. Pending MRI cardiac study per CTS - most likely will be Wednesday. Hospital course: Gabino Ocampo is 74 year old male w/ PMH of HFrEF (EF 25%) who presented from OSH for acute liver injury c/b KASEY and concern for cardiogenic shock. Patient initially presented on 10/23 for SOB butleft AMA. He returned week later w labs notable for AST >7000, ALT> 5800; elevated troponins.S/p NAC for liver injury and dobutamine for c/f cardiogenic shock. Pt states he hasn't seen a doctor in years but met a PCP last week who started him on torsemide and metoprolol. He states he does not take any medications, but does take a number of supplements (listed in 11/11 progress note). He denies excessive tylenol usage and no prior EtOH hx. US with doppler showed no hepatic lesions or intrahepatic biliary dilation with patent hepatic vasculature.TTE notable for EF 26% with moderately dilated LV, globally hypokinetic LV wall motion, and severely reduced systolic function. Dilated RV with normal systolic function. S/p R/L heart cath that showed L-sided atherosclerotic vascular disease, no pHTN. Added GDMT medications as tolerated - currently managed per cards. Patient on 11/09 was refusing to cooperate with nursing and other staff with active SI/depressive episode. Since then has been cooperative open to OP [facility]. Pending MRI cardiac study for r/o of structural amyloidosis/sarcoid/notable changes. Objective Temp: [98 ??F (36.7 ??C)-98.6 ??F (37 ??C)] 98.4 ??F (36.9 ??C) Pulse: [78-96] 87 Resp: [17-19] 18 BP: (89-117)/(57-80) 107/75 Weight change: Intake/Output Summary (Last 24 hours) at 11/12/2024 0655 Last data filed at 11/12/2024 0118 Gross per 24 hour Intake -- Output 770 ml Net -770 ml Physical Exam: Physical Exam Constitutional: General: He is not in acute distress. Appearance: Normal appearance. HENT: Head: Normocephalic. Eyes: Extraocular Movements: Extraocular movements intact. Pupils: Pupils are equal, round, and reactive to light. Cardiovascular: Rate and Rhythm: Normal rate and regular rhythm. Heart sounds: No murmur heard. Comments: B/l DP weak, normal radial pulses. No JVD. No hepatojugular reflux. Pulmonary: Effort: Pulmonary effort is normal. No respiratory distress. Breath sounds: Normal breath sounds. Abdominal: General: There is mild distension. Palpations: Abdomen is soft. There is no mass. Tenderness: There is no guarding. Comments: tender particularly RUQ and epigastric Musculoskeletal: General: Swelling present. Right lower leg: No edema. Left lower leg: No edema. Comments: Minimal LE edema today. Neurological: General: No focal deficit present. Mental Status: He is alert. Psychiatric: Mood and Affect: Affect is normal. Behavior: Behavior is cooperative. Thought Content: No active SI or SP. Scheduled Medications: Medications[1] PRN Medications: Medications[2] Continuous Infusions: Medications[3] Laboratory Data Recent Labs Component Name 11/12/24 0253 11/11/24 0247 11/10/24 0241 WBC 9.2 12.0* 10.7 HGB 10.5* 10.3* 10.6* HCT 30.9* 30.4* 32.3* PLTCOUNT 194 180 143* MCV 89.3 87.6 88.3 Recent Labs Component Name 11/12/24 0253 11/11/24 0247 11/10/24 0241 PT 14.2 14.4 15.1* INR 1.1 1.1 1.2 Recent Labs Component Name 11/12/24 0253 11/11/24 0247 11/10/24 0241 NA 132* 129* 129* POTASSIUM 4.5 4.4 3.2* CL 103 98 96* CO2 BUN 11 13 15 CREATININE 0.84 0.89 0.82 Recent Labs Component Name 11/12/24 0253 11/11/24 0247 11/10/24 0241 CALCIUM 7.7* 7.5* 7.2* PHOS 2.9 2.8 3.1 Recent Labs Component Name 11/12/24 0253 11/11/24 0247 11/10/24 0241 PROT 4.7* 4.9* 4.7* ALB 2.2* 2.1* 2.0* ALKPHOS 109 111 97 AST 43* 54* 51* ALT 117* 145* 165* TBILI 0.8 0.9 0.9 No results for input(s): CKTOTAL, CKMBCK2, TROPONINI in the last 55567 hours. No results for input(s): VANCORNDM, VANCTROUGH in the last 53988 hours. Microbiology Results (Displays last 21 days for this encounter ONLY) Procedure Component Value - Date/Time CULTURE BLOOD [[id number]] (Normal) Collected: 11/02/241758 Lab Status: Final result Specimen: Blood from BC Peripheral 1 Updated: 11/07/24 2332 Culture No growth day 5 CULTURE BLOOD [[id number]] (Normal) Collected: 11/02/241758 Lab Status: Final result Specimen: Blood from BC Peripheral 2 Updated: 11/07/24 2332 Culture No growth day 5 RESPIRATORY PANEL WITH SARS-COV-2 BY PCR ([facility]) [[id number]] (Normal) Collected: 11/02/24 0818 Lab Status: Final result Specimen: Microbiology from Nasopharyngeal Updated: 11/02/24 1624 Adenovirus PCR Not detected Coronavirus 229E PCR Not detected Coronavirus HKU1 PCR Not detected Coronavirus NL63 PCR Not detected Coronavirus OC43 PCR Not detected COVID-19 PCR Not detected Human Metapneumovirus PCR Not detected Human Rhinovirus/Enterovirus PCR Not detected Influenza A PCR Not detected Influenza B PCR Not detected Parainfluenza Virus 1 PCR Not detected Parainfluenza Virus 2 PCR Not detected Parainfluenza Virus 3 PCR Not detected Parainfluenza Virus 4 PCR Not detected Respiratory Syncytial Virus PCR Not detected Bordetella parapertussis PCR Not detected Bordetella pertussis PCR Not detected Chlamydia pneumoniae PCR Not detected Mycoplasma pneumoniae PCR Not detected Narrative: This nucleic amplification assay has received FDA authorization via the [employer]. Imaging No results found. Relevant labs and imaging data reviewed on [facility]. Assessment and Plan Hepatic trauma, initial encounter (POA: Unknown) Other specified anemias (POA: Unknown) Urinary retention (POA: Unknown) Heart failure with reduced ejection fraction (HCC) (POA: Unknown) Cardiogenic shock (HCC) (POA: Unknown) Elevated troponin (POA: Unknown) Transaminitis (POA: Yes) Thrombocytopenia (POA: Unknown) Hyponatremia (POA: No) Overflow diarrhea (POA: No) Depression (POA: No) Hyponatremia (POA: No) Assessment & Plan Cardiogenic shock (HCC) Elevated troponin Heart failure with reduced ejection fraction (HCC) Managed per cardiology. PLAN: --cont lipitor 80mg, metoprolol succinate 25 mg, spironolactone 12.5 mg --cont holding lasix 40mg PO daily --hold entresto 24-26 BID and jardiance 10mg qday - awaiting cards/CTS recs --cont fluid restriction 1800mL, --pending MRI cardiac study Hyponatremia Chronic hyponatremia. Remains euvolemic, previously hypovolemic. Mild improvement w fluid restriction. Usom>480 Yaneth>95. TSH WNL. Working ddx: heart failure/ low effective arterial blood volume vs CKD vs adrenal insufficiency vs SIADH Hypotonic, euvolemic/hypovolemic. PLAN: --cont holding lasix --cont fluid restrict 1800 mL --consider ACTH/cortisol workup if no further improvement in Na+ with fluid restriction Hepatic trauma, initial encounter Transaminitis Ddx: shock liver vs acetaminophen toxicity vs autoimmune vs toxicity from supplements vs autoimmune Transaminases markedly elevated on admission but downtrending now Unclear baseline - no close PCP followup Ultrasound with no clear etiology for liver injury. No ascites. Trace fluid morrisons pouch. - MPO/PR3 autoantibodies negative - Liver-kidney microsomal antibody IgG negative - MEREDITH not detected - [id number] elevated at 254, but likely a result of recent transfusions - ceruloplasmin normal - F-Actin antibody IgG normal - mitochondrial M2 antibody normal - hepatitis panel normal PLAN: --dc all OTC supplements IP --daily CBC, CMP, INR Other specified anemias Thrombocytopenia Iron panel consistent with chronic disease PLAN: --hgb stable, continue to monitor --monitor platelet counts closely - remains stable Urinary retention Patient voiding without catheter. --bedside urinal --restart external catheter PRN --cont tamsulosin 0.4mg daily Overflow diarrhea [employer] images from CT chest show large stool burden despite multiple loose BM's per day PLAN: --cont bowel regimen: senna, miralax Depression Voiced suicidal ideation on 11/09 but no plan, no homicidal ideation. No history of depression - current episode likely multifactorial: chronic life altering disease, loss of , loss of independence. Plan: --OP psychiatry referral (pt agreeable) Incidental findings requiring follow up: NA Diet: DIET CARDIAC DVT Prophylaxis: Heparin (DVT Prophylaxis Dose) Code Status: LIMITED RESUSCITATION-PRIOR AND AFTER ARREST [place] Candidate?: No Electronically Signed By: Mariangel Mario MD 11/12/2024 6:55 AM The above assessment and plan will be discussed with attending physician. This note is not final until attested by the attending physician. [1] 0.9% NaCl 3 mL Intracatheter q8h aspirin 81 mg Oral QDAY atorvastatin 80 mg Oral AT BEDTIME [Held by Provider] furosemide 40 mg Oral QDAY heparin 5,000 Units Subcutaneous q8h metoprolol succinate XL 24hr 25 mg Oral QDAY pantoprazole EC 40 mg Oral QDAY polyethylene glycol 3350 17 g Oral QDAY potassium - sodium phosphates 1 packet Oral TID WC potassium chloride 40 mEq Oral BID WC [Held by Provider] sacubitril-valsartan 1 tablet Oral BID senna 8.6 mg Oral QDAY spironolactone 12.5 mg Oral QDAY tamsulosin 0.4 mg Oral QDAY [2] SALINE LOCK, INSERT AND MAINTAIN AND 0.9% NaCl AND 0.9% NaCl fluticasone propionate saline nasal spray throat lozenge traZODone [3] Cosigned by Joel Cao III, MD at 11/14/2024 4:46 PM CDT Associated attestation - Joel Cao III, MD - 11/14/2024 4:46 PM CDT I have verified the documentation of the resident including all history, exam, and medical decision-making details. I have personally performed a physical exam and have personally reviewed the data to support my medical decision-making as outlined in their note. I agree with their assessment and plan. I have reviewed the problem list and specifically note that the patient is presently being treated and evaluated for: Hepatic trauma, initial encounter (POA: Unknown) Other specified anemias (POA: Unknown) Urinary retention (POA: Unknown) Heart failure with reduced ejection fraction (HCC) (POA: Unknown) Cardiogenic shock (HCC) (POA: Unknown) Elevated troponin (POA: Unknown) Transaminitis (POA: Yes) Thrombocytopenia (POA: Unknown) Hyponatremia (POA: No) Overflow diarrhea (POA: No) Depression (POA: No) Hyponatremia (POA: No) Insomnia (POA: No) Corrections/Additions: - Date of Service: Date of Resident's note Joel Cao MD * Jesse Comer RN - 11/11/2024 11:50 PM CDT Patient continues to be short with staff with rough language and an inability to have patience under any situation. Shortly following these interactions he was complimentary with CPTs. * Jesse Comer RN - 11/11/2024 11:41 PM CDT progressing * Jared Vasquez MD - 11/11/2024 6:53 AM CDT [facility] Internal Medicine Progress Note Name: Gabino Ocampo Room/Bed: 737/01 : 1950 74 year old PCP: No primary care provider on file. Admit Date/Time: 11/01/2024 9:26 PM LOS: 10 Subjective Interval update: NAEON. Still has not gotten MRI. Had some cough last night for which he was given throat lozenges. Still hyponatremic - messaged RN about collecting urine sodium/osmolality labs. Hospital course: Gabino Ocampo is 74 year old male w/ PMH of HFrEF (EF of 25%) who presented from OSH for acute liver injury c/b KASEY and concern for cardiogenic shock. Patient initially presented on 10/23 for SOB but left AMA. He returned on 10/30/2024 and was found to have AST >7000, ALT> 5800. Patient denies ETOH use. Troponins were also elevated. Prior to transfer patient was started on NAC for liver injury and dobutamine for concern for cardiogenic shock in setting of reduced EF of 25%. Pt states he hasn't seen a doctor in years but met a PCP last week who started him on torsemide and metoprolol.He states he does not take any medications, but does take a number of supplements in which he is unable to recall all their names. He denies taking tylenol and states he is not a drinker. On arrival to [facility], patient Aox3 (person, place and time) and has acutely diffuse abdominal pain. He reports SOB and has been having congestion and cough for the past two weeks. Patient denies havingknowledge of any liver disease or illness in the past. He further states that he has not had a BM in 1-2 weeks, and hasn't eaten in 2 days. He denies nausea and vomiting. 11/02 Pt had rectal exam without stool impaction due to empty rectal vault. Enemas were deployed and pt had 2 Bms with relief of some pain. US with doppler shows no hepatic lesions or intrahepatic biliary dilation with patent hepatic vasculature. GB sludge. Incidental right pleural effusion. Trace fluid in the Angulo's pouch TTE shows EF of 26% with a moderately dilated LV, globally hypokinetic LV wall motion, and severelyreduced systolic function. Dilated RV with normal systolic function. underwent R/L heart cath. Revealed atherosclerotic vascular disease. Added GDMT medications as tolerated. Patient on 11/09 was refusing to cooperate with nursing and other staff. His VSS and is not truly somnolent, but he is depressed stating he wants to . CTS recommended cardiac MRI today but it was cancelled due to pt non-cooperation. Re-ordered cardiac MRI on 11/10 as the patient is cooperative again. Objective Temp: [97.6 ??F (36.4 ??C)-98.8 ??F (37.1 ??C)] 98.4 ??F (36.9 ??C) Pulse: [81-94] 94 Resp: [18-19] 18 BP: (95-121)/(60-91) 106/91 Weight change: Intake/Output Summary (Last 24 hours) at 11/11/2024 0653 Last data filed at 11/11/2024 0535 Gross per 24 hour Intake 400 ml Output 1200 ml Net -800 ml Physical Exam: Physical Exam Constitutional: General: He is not in acute distress. Appearance: Normal appearance. HENT: Head: Normocephalic. Eyes: Extraocular Movements: Extraocular movements intact. Pupils: Pupils are equal, round, and reactive to light. Cardiovascular: Rate and Rhythm: Normal rate and regular rhythm. Heart sounds: No murmur heard. Comments: Bilateral DP pulses difficult to palpate, normal radial pulses No JVD No hepatojugular reflux Pulmonary: Effort: Pulmonary effort is normal. No respiratory distress. Breath sounds: Normal breath sounds. Abdominal: General: There is distension. Palpations: Abdomen is soft. There is no mass. Tenderness: There is no guarding. Comments: tender particularly RUQ and epigastric Musculoskeletal: General: Swelling present. Right lower leg: No edema. Left lower leg: No edema. Comments: Minimal LE edema today. Still has gravity dependent edema of posterior upper extremities Neurological: General: No focal deficit present. Mental Status: He is alert. Psychiatric: Mood and Affect: Affect is flat. Behavior: Behavior is cooperative. Thought Content: Thought content does not include suicidal ideation. Thought content does not include suicidal plan. Went through patient's supplements at bedside. 1- mens prostate formula 2- fiber capsules 3- arriaza's yeast 4- Ca, Mg, Zinc 5- vision formula 6- triple omega 7- alfalfa 8- hair, skin, nail supplement 9- complete multivitamin 10- Vitamin B complex 11- iron 12- aller-zyr (zyrtec) 13- ginko biloba 14- saw palmetto 15- cinnamon 16- apple cider vinegar 17- resveratrol 18- aspirin 19- ashwaghanda Laboratory Data Recent Labs Component Name 11/11/24 02411/10/24 0241 11/09/24 025 WBC 12.0* 10.7 10.9* HGB 10.3* 10.6* 10.9* HCT 30.4* 32.3* 32.5* PLTCOUNT 180 143* 125* MCV 87.6 88.3 87.4 Recent Labs Component Name 11/11/2424611/10/24 02411/09/24 025 PT 14.4 15.1* 15.0* INR 1.1 1.2 1.2 Recent Labs Component Name 11/11/24 02411/10/24 0241 11/09/24 0259 NA 129* 129* 129* POTASSIUM 4.4 3.2* 3.5 CL 98 96* 97* CO2 BUN 13 15 17 CREATININE 0.89 0.82 0.84 Recent Labs Component Name 11/11/2424611/10/24 02411/09/24 025 CALCIUM 7.5* 7.2* 7.3* PHOS 2.8 3.1 2.6* Recent Labs Component Name 11/11/24 02411/10/24 02411/09/24 0259 PROT 4.9* 4.7* 4.7* ALB 2.1* 2.0* 2.2* ALKPHOS 111 97 114 AST 54* 51* 63* ALT 145* 165* 226* TBILI 0.9 0.9 1.1 No results for input(s): CKTOTAL, CKMBCK2, TROPONINI in the last 97603 hours. No results for input(s): VANCORNDM, VANCTROUGH in the last 79353 hours. Microbiology Results (Displays last 21 days for this encounter ONLY) Procedure Component Value - Date/Time CULTURE BLOOD [[id number]] (Normal) Collected: 11/02/241758 Lab Status: Final result Specimen: Blood from BC Peripheral 1 Updated: 11/07/24 2332 Culture No growth day 5 CULTURE BLOOD [[id number]] (Normal) Collected: 11/02/241758 Lab Status: Final result Specimen: Blood from BC Peripheral 2 Updated: 11/07/24 2332 Culture No growth day 5 RESPIRATORY PANEL WITH SARS-COV-2 BY PCR ([facility]) [[id number]] (Normal) Collected: 11/02/24 0818 Lab Status: Final result Specimen: Microbiology from Nasopharyngeal Updated: 11/02/24 1624 Adenovirus PCR Not detected Coronavirus 229E PCR Not detected Coronavirus HKU1 PCR Not detected Coronavirus NL63 PCR Not detected Coronavirus OC43 PCR Not detected COVID-19 PCR Not detected Human Metapneumovirus PCR Not detected Human Rhinovirus/Enterovirus PCR Not detected Influenza A PCR Not detected Influenza B PCR Not detected Parainfluenza Virus 1 PCR Not detected Parainfluenza Virus 2 PCR Not detected Parainfluenza Virus 3 PCR Not detected Parainfluenza Virus 4 PCR Not detected Respiratory Syncytial Virus PCR Not detected Bordetella parapertussis PCR Not detected Bordetella pertussis PCR Not detected Chlamydia pneumoniae PCR Not detected Mycoplasma pneumoniae PCR Not detected Narrative: This nucleic amplification assay has received FDA authorization via the [employer] Path[employer]. Imaging US Abdomen Ltd W Comp Doppler Result Date: 11/02/2024 IMPRESSION: 1. No discrete hepatic lesion or intrahepatic biliary dilation. Patent hepatic vasculature. 2. Sludge in the gallbladder. 3. Incidental right pleural effusion 4. Trace fluid in the Angulo's pouch Report dictated by Zachary Rushing MD (Animal Humane Agent Supervisor) IZan MD have personally reviewed and interpreted this examination/study. > Interpreting Provider: Zan Cortes MD on 11/02/2024 1:40 PM XR Chest 1Vw Portable Result Date: 11/02/2024 IMPRESSION: Cardiomegaly. Atherosclerotic aorta. Bilateral interstitial and hazy airspace opacities, which may represent pulmonary edema or pneumonia in the appropriate clinical setting. No large effusion or pneumothorax. > Interpreting Provider: Taisha Seymour MD on 11/02/2024 12:55 PM XR Abdomen Kub Portable Result Date: 11/02/2024 IMPRESSION: Mild mildly dilated small bowel loops measuring up to 4 cm. Gas is identified in the distal colon and rectum. Findings may represent ileus or low- grade obstruction. Mild to moderate left predominant colonic stool volume. Mild left basilar atelectasis/airspace disease. Cardiomegaly. >Interpreting Provider: Taisha Seymour MD on 11/02/2024 12:54 PM Relevant labs and imaging data reviewed on [facility]. Assessment and Plan Hepatic trauma, initial encounter (POA: Unknown) Other specified anemias (POA: Unknown) Urinary retention (POA: Unknown) Heart failure with reduced ejection fraction (HCC) (POA: Unknown) Cardiogenic shock (HCC) (POA: Unknown) Elevated troponin (POA: Unknown) Transaminitis (POA: Yes) Thrombocytopenia (POA: Unknown) Hyponatremia (POA: No) Overflow diarrhea (POA: No) Depression (POA: No) Assessment & Plan Cardiogenic shock (HCC) Elevated troponin Heart failure with reduced ejection fraction (HCC) Entresto 24-26 BID - holding Jardiance 10 mg Qdaily - not started yet, waiting on CTS recs Metoprolol succinate 25 mg qdaily Spironolactone 12.5 mg Lasix 40 PO daily - held today Fluid restrict 1800 mL Cardiac MRI ordered Started lipitor 80 mg Hepatic trauma, initial encounter Transaminitis Ddx: shock liver vs acetaminophen toxicity vs autoimmune vs toxicity from supplements vs autoimmune Transaminases markedly elevated on admission but downtrending now Unclear baseline - no close PCP followup Ultrasound with no clear etiology for liver injury. No ascites. Trace fluid morrisons pouch. - MPO/PR3 autoantibodies negative - Liver-kidney microsomal antibody IgG negative - MEREDITH not detected - [id number] elevated at 254, but likely a result of recent transfusions - ceruloplasmin normal - F-Actin antibody IgG normal - mitochondrial M2 antibody normal - hepatitis panel normal PLAN: - Dc all OTC supplements - Daily CBC, CMP, INR Hyponatremia Ddx: heart failure/ low effective arterial blood volume vs CKD vs adrenal insufficiency vs SIADH Hypotonic, euvolemic/hypovolemic - hold lasix - fluid restrict 1800 mL Other specified anemias Thrombocytopenia Iron panel consistent with chronic disease - HgB stable, continue to monitor - monitor platelet counts closely. Stable today. Urinary retention Patient voiding without catheter - provided bedside urinal - can restart external catheter if needed - tamsulosin 0.4mg daily Overflow diarrhea [employer] images from CT chest show large stool burden despite multiple loose BM's per day PLAN: - senna, miralax Depression No history of depression - current episode likely multifactorial: chronic life altering disease, loss of , loss of independence Voiced suicidal ideation on 11/09 but no plan, no homicidal ideation Plan: Patient is agreeable to an outpatient psychiatry referral Diet: DIET CARDIAC DVT Prophylaxis: Heparin (DVT Prophylaxis Dose) Code Status: LIMITED RESUSCITATION-PRIOR AND AFTER ARREST [place] Candidate?: No Electronically Signed By: Jared Vasquez MD 11/11/2024 6:53 AM The above assessment and plan will be discussed with attending physician. This note is not final until attested by the attending physician. Cosigned by Joel Cao III, MD at 11/12/2024 11:28 AM CDT Associated attestation - Joel Cao III, MD - 11/12/2024 11:28 AM CDT I have verified the documentation of the resident including all history, exam, and medical decision-making details. I have personally performed a physical exam and have personally reviewed the data to support my medical decision-making as outlined in their note. I agree with their assessment and plan. I have reviewed the problem list and specifically note that the patient is presently being treated and evaluated for: Hepatic trauma, initial encounter (POA: Unknown) Other specified anemias (POA: Unknown) Urinary retention (POA: Unknown) Heart failure with reduced ejection fraction (HCC) (POA: Unknown) Cardiogenic shock (HCC) (POA: Unknown) Elevated troponin (POA: Unknown) Transaminitis (POA: Yes) Thrombocytopenia (POA: Unknown) Hyponatremia (POA: No) Overflow diarrhea (POA: No) Depression (POA: No) Hyponatremia (POA: No) Corrections/Additions: - Date of Service: Date of Resident's note Joel Cao MD * Alda Padilla, PT - 11/10/2024 2:36 PM CDT [facility] Department of Physical Medicine & Rehabilitation Progress Note Patient: Gabino Ocampo Med Record Number: [id number] Date of : 1950 Age: [age] year old 11/10/24 1436 Missed Visit Missed Visit Refused Patient refused therapy intervention due to Fatigue;Other (Comment) (frustrated with wait time for MRI) Pt approached for PT session at this time. Pt states that this is not a good day or time for him 2/2 waiting for his MRI since this A.M. Pt verbalizes that he is frustrated that nobody can give him acertain time that his MRI will be completed. Pt reports that he has not slept well either and everything during his hospital stay has been a mess. Pt would like to defer therapy until a later date. Reports he has been getting up and going to the bathroom 7 times already today. PT encouraged pt toremain as active as he can so he does not lose strength from bed rest. Pt acknowledged that mobility is important and will ask the [facility] staff if he can go for a walk tonight or over the weekend. PT will continue to follow and attempt to see pt at later time as pt agreeable. * Melo Antonio RN - 11/10/2024 2:35 PM CDT Care Coordination Progress Note Expected Discharge Date: 11/13/2024 Discharge Plan: .Will likely discharge to home when medically ready. Pending further cardiac workupand possible CABG. Family Support (Name and Phone): Extended Emergency Contact Information Primary Emergency Contact: José Miguel Ocampo Mobile Relation: Son Secondary Emergency Contact: Edgard Ocampo Mobile Relation: Son Transportation at Discharge: Family: READMISSION RISK SCORE is 14 at 2:36 PM 11/10/2024.: Name: Melo Antonio RN [id number] * Jared Vasquez MD - 11/10/2024 9:21 AM CDT [facility] Internal Medicine Progress Note Name: Gabino Ocampo Room/Bed: 737/ : 1950 74 year old PCP: No primary care provider on file. Admit Date/Time: 11/01/2024 9:26 PM LOS: 9 Subjective Interval update: NASYLVIA. Patient interactive today, apologized for not cooperating yesterday. He states he was tired,frustrated, and upset. He also had been having dreams that he repeatedly and he states this caused some confusion and more frustration during the day. Today he says he is willing to undergo the cardiac MRI. He also requested to see a psychiatrist outpatient. Son at bedside today. Hospital course: Gabino Ocampo is 74 year old male w/ PMH of HFrEF (EF of 25%) who presented from OSH for acute liver injury c/b KASEY and concern for cardiogenic shock. Patient initially presented on 10/23 for SOB but left AMA. He returned on 10/30/2024 and was found to have AST >7000, ALT> 5800. Patient denies ETOH use. Troponins were also elevated. Prior to transfer patient was started on NAC for liver injury and dobutamine for concern for cardiogenic shock in setting of reduced EF of 25%. Pt states he hasn't seen a doctor in years but met a PCP last week who started him on torsemide and metoprolol.He states he does not take any medications, but does take a number of supplements in which he is unable to recall all their names. He denies taking tylenol and states he is not a drinker. On arrival to [facility], patient Aox3 (person, place and time) and has acutely diffuse abdominal pain. He reports SOB and has been having congestion and cough for the past two weeks. Patient denies havingknowledge of any liver disease or illness in the past. He further states that he has not had a BM in 1-2 weeks, and hasn't eaten in 2 days. He denies nausea and vomiting. 11/02 Pt had rectal exam without stool impaction due to empty rectal vault. Enemas were deployed and pt had 2 Bms with relief of some pain. US with doppler shows no hepatic lesions or intrahepatic biliary dilation with patent hepatic vasculature. GB sludge. Incidental right pleural effusion. Trace fluid in the Angulo's pouch TTE shows EF of 26% with a moderately dilated LV, globally hypokinetic LV wall motion, and severelyreduced systolic function. Dilated RV with normal systolic function. underwent R/L heart cath. Revealed atherosclerotic vascular disease. Added GDMT medications as tolerated. Patient on 11/09 was refusing to cooperate with nursing and other staff. His VSS and is not truly somnolent, but he is depressed stating he wants to . CTS recommended cardiac MRI today but it was cancelled due to pt non-cooperation. Re-ordered cardiac MRI on 11/10 as the patient is cooperative again. Objective Temp: [97.7 ??F (36.5 ??C)-98.6 ??F (37 ??C)] 98 ??F (36.7 ??C) Pulse: [74-87] 81 Resp: [17-18] 18 BP: (106-118)/(61-74) 118/74 Weight change: Intake/Output Summary (Last 24 hours) at 11/10/2024 0921 Last data filed at 11/10/2024 0656 Gross per 24 hour Intake -- Output 202 ml Net -202 ml Physical Exam: Physical Exam Constitutional: General: He is not in acute distress. Appearance: Normal appearance. HENT: Head: Normocephalic. Eyes: Extraocular Movements: Extraocular movements intact. Pupils: Pupils are equal, round, and reactive to light. Cardiovascular: Rate and Rhythm: Normal rate and regular rhythm. Heart sounds: No murmur heard. Comments: Bilateral DP pulses difficult to palpate, normal radial pulses No JVD No hepatojugular reflux Pulmonary: Effort: Pulmonary effort is normal. No respiratory distress. Breath sounds: Normal breath sounds. Abdominal: General: There is distension. Palpations: Abdomen is soft. There is no mass. Tenderness: There is no guarding. Comments: tender particularly RUQ and epigastric Musculoskeletal: General: Swelling present. Right lower leg: No edema. Left lower leg: No edema. Comments: Minimal LE edema today. Still has gravity dependent edema of posterior upper extremities Neurological: General: No focal deficit present. Mental Status: He is alert. Psychiatric: Mood and Affect: Affect is flat. Behavior: Behavior is cooperative. Thought Content: Thought content does not include suicidal ideation. Thought content does not include suicidal plan. Went through patient's supplements at bedside. 1- mens prostate formula 2- fiber capsules 3- arriaza's yeast 4- Ca, Mg, Zinc 5- vision formula 6- triple omega 7- alfalfa 8- hair, skin, nail supplement 9- complete multivitamin 10- Vitamin B complex 11- iron 12- aller-zyr (zyrtec) 13- ginko biloba 14- saw palmetto 15- cinnamon 16- apple cider vinegar 17- resveratrol 18- aspirin 19- ashwaghanda Laboratory Data Recent Labs Component Name 11/10/24 02411/09/249 11/08/24 0301 WBC 10.7 10.9* 10.3 HGB 10.6* 10.9* 11.3* HCT 32.3* 32.5* 33.6* PLTCOUNT 143* 125* 106* MCV 88.3 87.4 88.0 Recent Labs Component Name 11/10/24 02411/09/249 11/08/24 0301 PT 15.1* 15.0* 15.6* INR 1.2 1.2 1.3 Recent Labs Component Name 11/10/24 02411/09/24 0259 11/08/24 0301 NA 129* 129* 134* POTASSIUM 3.2* 3.5 3.2* CL 96* 97* 97* CO2 26 26 27 BUN 15 17 24 CREATININE 0.82 0.84 0.88 Recent Labs Component Name 11/10/24 02411/09/24 0259 11/08/24 0301 CALCIUM 7.2* 7.3* 7.1* PHOS 3.1 2.6* 2.5* Recent Labs Component Name 11/10/24 02411/09/24 0259 11/08/24 0301 PROT 4.7* 4.7* 4.5* ALB 2.0* 2.2* 2.1* ALKPHOS 97 114 107 AST 51* 63* 55* ALT 165* 226* 287* TBILI 0.9 1.1 1.3* No results for input(s): CKTOTAL, CKMBCK2, TROPONINI in the last 66265 hours. No results for input(s): VANCORNDM, VANCTROUGH in the last 72297 hours. Microbiology Results (Displays last 21 days for this encounter ONLY) Procedure Component Value - Date/Time CULTURE BLOOD [[id number]] (Normal) Collected: 11/02/241758 Lab Status: Final result Specimen: Blood from BC Peripheral 1 Updated: 11/07/24 233 Culture No growth day 5 CULTURE BLOOD [[id number]] (Normal) Collected: 11/02/241758 Lab Status: Final result Specimen: Blood from BC Peripheral 2 Updated: 11/07/242331 Culture No growth day 5 RESPIRATORY PANEL WITH SARS-COV-2 BY PCR ([facility]) [[id number]] (Normal) Collected: 11/02/24 0818 Lab Status: Final result Specimen: Microbiology from Nasopharyngeal Updated: 11/02/24 1624 Adenovirus PCR Not detected Coronavirus 229E PCR Not detected Coronavirus HKU1 PCR Not detected Coronavirus NL63 PCR Not detected Coronavirus OC43 PCR Not detected COVID-19 PCR Not detected Human Metapneumovirus PCR Not detected Human Rhinovirus/Enterovirus PCR Not detected Influenza A PCR Not detected Influenza B PCR Not detected Parainfluenza Virus 1 PCR Not detected Parainfluenza Virus 2 PCR Not detected Parainfluenza Virus 3 PCR Not detected Parainfluenza Virus 4 PCR Not detected Respiratory Syncytial Virus PCR Not detected Bordetella parapertussis PCR Not detected Bordetella pertussis PCR Not detected Chlamydia pneumoniae PCR Not detected Mycoplasma pneumoniae PCR Not detected Narrative: This nucleic amplification assay has received FDA authorization via the [employer] Pathway. Imaging US Abdomen Ltd W Comp Doppler Result Date: 11/02/2024 IMPRESSION: 1. No discrete hepatic lesion or intrahepatic biliary dilation. Patent hepatic vasculature. 2. Sludge in the gallbladder. 3. Incidental right pleural effusion 4. Trace fluid in the Angulo's pouch Report dictated by Zachary Rushing MD (Animal Humane Agent Supervisor) IZan MD have personally reviewed and interpreted this examination/study. > Interpreting Provider: Zan Cortes MD on 11/02/2024 1:40 PM XR Chest 1Vw Portable Result Date: 11/02/2024 IMPRESSION: Cardiomegaly. Atherosclerotic aorta. Bilateral interstitial and hazy airspace opacities, which may represent pulmonary edema or pneumonia in the appropriate clinical setting. No large effusion or pneumothorax. > Interpreting Provider: Taisha Seymour MD on 11/02/2024 12:55 PM XR Abdomen Kub Portable Result Date: 11/02/2024 IMPRESSION: Mild mildly dilated small bowel loops measuring up to 4 cm. Gas is identified in the distal colon and rectum. Findings may represent ileus or low- grade obstruction. Mild to moderate left predominant colonic stool volume. Mild left basilar atelectasis/airspace disease. Cardiomegaly. >Interpreting Provider: Taisha Seymour MD on 11/02/2024 12:54 PM Relevant labs and imaging data reviewed on [facility]. Assessment and Plan Hepatic trauma, initial encounter (POA: Unknown) KASEY (acute kidney injury) (POA: Unknown) Other specified anemias (POA: Unknown) Urinary retention (POA: Unknown) Heart failure with reduced ejection fraction (HCC) (POA: Unknown) Cardiogenic shock (HCC) (POA: Unknown) Elevated troponin (POA: Unknown) Transaminitis (POA: Yes) Thrombocytopenia (POA: Unknown) Hyponatremia (POA: No) Assessment & Plan Cardiogenic shock (HCC) Elevated troponin Heart failure with reduced ejection fraction (HCC) Entresto 24-26 BID - holding Jardiance 10 mg Qdaily - not started yet, waiting on CTS recs Metoprolol succinate 25 mg qdaily Spironolactone 12.5 mg Lasix 40 PO daily - held today Telemetry Fluid restrict 1800 mL Cardiac MRI ordered today Hepatic trauma, initial encounter Transaminitis Ddx: shock liver vs acetaminophen toxicity vs autoimmune vs toxicity from supplements vs autoimmune Transaminases markedly elevated on admission but downtrending now Unclear baseline - no close PCP followup Ultrasound with no clear etiology for liver injury. No ascites. Trace fluid morrisons pouch. PLAN: AMA, MEREDITH, Antismooth muscle antibodies, ANCA panel, anti-LKM1 antibodies, IgG, serum [id number]-[id number] - ceruloplasmin normal - F-Actin antibody IgG normal - mitochondrial M2 antibody normal - hepatitis panel normal - Dc all OTC supplements - Daily CBC, CMP, INR Hyponatremia Ddx: heart failure/ low effective arterial blood volume vs CKD vs adrenal insufficiency vs SIADH Hypotonic, volume overload makes most likely etiology HF - fluid restrict 1800 mL Other specified anemias Thrombocytopenia Iron panel consistent with chronic disease - HgB stable, continue to monitor - monitor platelet counts closely. Stable today. Urinary retention Patient voiding without catheter - provided bedside urinal - can restart external catheter if needed - tamsulosin 0.4mg daily Overflow diarrhea [employer] images from CT chest show large stool burden despite multiple loose BM's per day PLAN: - senna, miralax Depression No history of depression - current episode likely multifactorial: chronic life altering disease, loss of , loss of independence Voiced suicidal ideation on 11/09 but no plan, no homicidal ideation Still with relatively flat affect on 11/10 but not suicidal, much more interactive Plan: Patient is agreeable to an outpatient psychiatry referral KASEY (acute kidney injury) (Resolved: 11/10/2024) Cardiorenal vs hepatorenal syndrome 10/31 US with solid hypoechoic left renal mass and subcentimeter L renal cyst Per rads: CT urogram or abdominal MRI w contrast (will be ordered outpatient) Start cardiac diet - fluid restrict to 1800 mL Hold lasix today Diet: DIET CARDIAC DVT Prophylaxis: Heparin (DVT Prophylaxis Dose) Code Status: LIMITED RESUSCITATION-PRIOR AND AFTER ARREST [place] Candidate?: No Electronically Signed By: Jared Vasquez MD 11/10/2024 9:21 AM The above assessment and plan will be discussed with attending physician. This note is not final until attested by the attending physician. Cosigned by Joel Cao III, MD at 11/12/2024 11:24 AM CDT Associated attestation - Joel Cao III, MD - 11/12/2024 11:24 AM CDT I have verified the documentation of the resident including all history, exam, and medical decision-making details. I have personally performed a physical exam and have personally reviewed the data to support my medical decision-making as outlined in their note. I agree with their assessment and plan. I have reviewed the problem list and specifically note that the patient is presently being treated and evaluated for: Hepatic trauma, initial encounter (POA: Unknown) Other specified anemias (POA: Unknown) Urinary retention (POA: Unknown) Heart failure with reduced ejection fraction (HCC) (POA: Unknown) Cardiogenic shock (HCC) (POA: Unknown) Elevated troponin (POA: Unknown) Transaminitis (POA: Yes) Thrombocytopenia (POA: Unknown) Hyponatremia (POA: No) Overflow diarrhea (POA: No) Depression (POA: No) Hyponatremia (POA: No) Corrections/Additions: - Date of Service: Date of Resident's note Joel Cao MD * Shankar Womack MD - 11/10/2024 8:36 AM CDT [facility] In[facility] Cardiology Consultation Progress Note Patient: Gabino Ocampo Date of Admission: 11/01/2024 LOS: 9 Interval History NAEON. VSS. Patient was comfortable today, awaiting cardiac MRI. HPI Gabino Ocampo is a 74 year old male with PMH of HFrEF (EF of 25%) who presented from OSH for acute liver injury c/b KASEY and concern for cardiogenic shock. Patient initially presented on 10/23 for SOB but left AMA. He returned on 10/30/2024 and was found to have AST >7000, ALT> 5800. Patient denies ETOH use. Troponins were also elevated. Patient transferred to [facility] for liver team. Prior to transfer patient was started on NAC for liver injury and dobutamine for concern for cardiogenic shock in setting of reduced EF of 25%. Upon arrival, patient Aox3 (person, place and time) and denies any acute pain. He does report some SOB which upon further evaluation is described as nasal congestion. Patient denies having knowledge of any liver or heart disease or illness in the past. Cardiology consulted 11/02 after concerns for cardiogenic shock. Per chart review patient has reported EF of 25% from OSH. His son states that patient has been feeling short of breath for 1.5 weeks, however the somnolence is new this admission. BNP 847, troponin 113, 137, 169. Lactate 2.8, 2.8. Signs of liver injury and KASEY with LFTs in the 3000s and Cr 3.85. Heart cath revealed multi- vessel CAD and ischemic cardiomyopathy. Objective BP 118/74 (BP Location: Right arm, Patient Position: Lying) Pulse 81 Temp 98 ??F (36.7 ??C) (Oral) Resp 18 Ht 1.676 m (5' 6) Wt 69 kg (152 lb 1.6 oz) SpO2 97% Physical exam based on Interventional Cards note, General: Well-developed in NAD. HEENT: NC/AT. PERRL. Neck: Supple. No tenderness, , no JVD Lungs: CTAB. Mild respiratory effort when talking Heart: RRR. Abdomen: Soft. NT/ND. Ext/MS: Trace KURT, no cyanosis Neuro: A&O x3. No focal deficits noted. Skin: Bilateral forearm rashes non blanchable, not tender or pruritic Pulses: Radial : 1+ bilateral Femoral artery: 2+ bilateral All labs, imaging, and diagnostics reviewed. Assessment and Plan # Cardiogenic shock # Acute liver injury # KASEY # Newly diagnosed HFrEF, acute on chronic # Multivessel coronary artery disease # Ischemic cardiomyopathy Cardiogenic shock likely related to shock liver vs priamry liver pathology causing acute liver injury. The etiology of cardiogenic shock is due to ischemic cardiomyopathy from multi vessel coronary artery disease. We discussed the risk and benefits of getting PCI vs CABG. We believe this patient would be better suited for PCI, given his co morbidities and desire to not undergo surgery. However, CTS input is needed for CABG. The patient's clinical status is improving. He is currently on Metoprolol Succinate 25 qd, Entresto 24-26 bid, jardiance 49-51 bid, lasix 40qd, spironolactone 12.5 qd, ASA81 qd, and heparin ppx. Recommendations: - Follow up Cardiac MRI - Heart team discussion for CABG vs PCI - Continue metoprolol 25qd, spironolactone 12.5 qd - Lasix 20 qd - Rosuvastatin 20 qd - Keep K>4, Phos > 3, Mg>2 - Continue telemetry We will follow. Staffed with Dr. Medley. Please see attending attestation for any changes to recommendations. Shankar Womack M.D. search engine marketing strategist, PGY 11/10/2024 8:36 AM * Nat Albert RN - 11/09/2024 3:57 PM CDT HOME CARE REFERRAL HAS BEEN RECEIVED HOWEVER COULD NOT BE ACCEPTED DUE TO THE PATIENT RESIDING OUT OF THE SERVICE AREA. THICKENER OPERATOR WAS MADE AWARE & THE REFERRAL WAS CLOSED. Amy Albert RN [facility] research program intern Liaison [facility] [phone] * Aleshia Leyva PT - 11/09/2024 3:48 PM CDT [facility] Department of Physical Medicine & Rehabilitation Progress Note Patient: Gabino Ocampo Med Record Number: [id number] Date of : 1950 Age: [age] year old 11/09/24 1548 Missed Visit Missed Visit Refused Patient refused therapy intervention due to Fatigue * Lindsey Rockwell OT - 11/09/2024 3:31 PM CDT [facility] Department of Physical Medicine & Rehabilitation Progress Note Patient: Gabino Ocampo Med Record Number: [id number] Date of : 1950 Age: [age] year old 11/09/24 1527 Missed Visit Missed Visit Refused Patient refused therapy intervention due to Fatigue PM- patient declined participation in OT or OOB activities at this time. Stated he's trying to gethimself back to normal. Agreeable for OT to return at another time. Will follow up as schedule permits. * Marty Hartman MD - 11/09/2024 11:02 AM CDT I have reviewed the patient's medical record; I have seen and examined the patient with the ELEAZAR. I have discussed and directed the medical management/treatment and performed decision making for the patients' medical condition and take responsibility for management risk pertaining to this patient. Iagree with the findings and plan of care as documented by the ELEAZAR. I spent more than 30 minutes with this patient including examining them, evaluating their data, and formulating a plan. Patient refusing to interact with providers. He purposefully closed his eyes and ignored all providers; attempts to sternal rub him and elicit a response resulted in threats and patient stating he wants to , does not want anything done, and wants to [facility] his in [facility]. I called and discussed with his son who is agreeable with moving forward with cardiac MRI for evaluation as I think the CAD does not fully explain his cardiomyopathy. Case discussed with Dr. Brumfield whoagrees. Will continue to follow. Matry Hartman MD (Anh) Cardiothoracic surgery * Meaghan Payne RD/KERI - 11/09/2024 8:43 AM CDT CLINICAL NUTRITION SCREEN Screen: No Nutrition Risk Identified Pt screened r/t LOS. Appetite good, consuming 50-100% meals documented and average 80% in past 48 hours. Limited weight history in EMR available to review. No acute nutrition concerns identified at this time. Will continue to follow at low nutrition risk. Med/Surg History and Clinical Diagnoses: 74 year old male w/ PMH of HFrEF (EF of 25%) who presentedfrom OSH for acute liver injury c/b KASEY and concern for cardiogenic shock. Patient initially presented on 10/23 for SOB but left AMA. He returned on 10/30/2024 and was found to have AST >7000, ALT> 5800. Height: 167.6 cm (5' 6) Body mass index is 24.02 kg/m??. BMI Range: Normal IBW/lb (Calculated) Male: 142 Wt Readings from Last 5 Encounters: 11/07/24 67.5 kg (148 lb 13 oz) Current diet order: Cardiac Standard;Fluid Restriction (1800 mL) Food Allergies: No known food allergies P.O.intake for past 48 hours: Percent Meal Eaten (%) Av % Min: 50 % Max: 100 %. Skin/Wound: exceptions per nursing (bruising, redness RLE). Stools: Unmeasured Stool Occurrence: 1 (11/08/241428) Stool Appearance : Loose;Watery (11/08/241428) Nutrition recommendation: agree with current nutrition order Monitor per nutrition guidelines. Risk Level: Low Meaghan Payne MS, RD, LDN, CNSC Certified Nutrition Support Clinician * Jared Vasquez MD - 11/09/2024 7:34 AM CDT Images from the original note were not included. [facility] Internal Medicine Progress Note Name: Gabino Ocampo Room/Bed: 737/01 : 1950 74 year old PCP: No primary care provider on file. Admit Date/Time: 11/01/2024 9:26 PM LOS: 8 Subjective Interval update: Required max assist for toileting with OT, declined other activities. Na 129 this AM. Holding entresto. Called to bedside by nursing this AM for unresponsive patient, VSS. Patient wakes up to sternalrubs but due to affect refuses to interact with the team, stating he wants to . CTS requested cardiac MRI, but patient is not responding to staff so this scan was cancelled. Hospital course: Gabino Ocampo is 74 year old male w/ PMH of HFrEF (EF of 25%) who presented from OSH for acute liver injury c/b KASEY and concern for cardiogenic shock. Patient initially presented on 10/23 for SOB but left AMA. He returned on 10/30/2024 and was found to have AST >7000, ALT> 5800. Patient denies ETOH use. Troponins were also elevated. Prior to transfer patient was started on NAC for liver injury and dobutamine for concern for cardiogenic shock in setting of reduced EF of 25%. Pt states he hasn't seen a doctor in years but met a PCP last week who started him on torsemide and metoprolol.He states he does not take any medications, but does take a number of supplements in which he is unable to recall all their names. He denies taking tylenol and states he is not a drinker. On arrival to [facility], patient Aox3 (person, place and time) and has acutely diffuse abdominal pain. He reports SOB and has been having congestion and cough for the past two weeks. Patient denies havingknowledge of any liver disease or illness in the past. He further states that he has not had a BM in 1-2 weeks, and hasn't eaten in 2 days. He denies nausea and vomiting. 11/02 Pt had rectal exam without stool impaction due to empty rectal vault. Enemas were deployed and pt had 2 Bms with relief of some pain. US with doppler shows no hepatic lesions or intrahepatic biliary dilation with patent hepatic vasculature. GB sludge. Incidental right pleural effusion. Trace fluid in the Angulo's pouch TTE shows EF of 26% with a moderately dilated LV, globally hypokinetic LV wall motion, and severelyreduced systolic function. Dilated RV with normal systolic function. underwent R/L heart cath. Revealed atherosclerotic vascular disease. Added GDMT medications as tolerated. Patient on 11/09 was refusing to cooperate with nursing and other staff. His VSS and is not truly somnolent, but he is depressed stating he wants to . CTS recommended cardiac MRI today but it was cancelled due to pt non-cooperation. Objective Temp: [97.4 ??F (36.3 ??C)-98.9 ??F (37.2 ??C)] 98.2 ??F (36.8 ??C) Pulse: [80-96] 80 Resp: [16-18] 18 BP: (96-114)/(68-79) 114/79 Weight change: Intake/Output Summary (Last 24 hours) at 11/09/2024 0772 Last data filed at 11/09/2024 0113 Gross per 24 hour Intake 200 ml Output 100 ml Net 100 ml Physical Exam: Physical Exam Constitutional: General: He is not in acute distress. Appearance: Normal appearance. HENT: Head: Normocephalic. Eyes: Extraocular Movements: Extraocular movements intact. Pupils: Pupils are equal, round, and reactive to light. Cardiovascular: Rate and Rhythm: Normal rate and regular rhythm. Heart sounds: No murmur heard. Comments: Bilateral DP pulses difficult to palpate, normal radial pulses No JVD No hepatojugular reflux Pulmonary: Effort: Pulmonary effort is normal. No respiratory distress. Breath sounds: Normal breath sounds. Abdominal: General: There is distension. Palpations: Abdomen is soft. There is no mass. Tenderness: There is no guarding. Comments: Softer today than previous, but plate drying machine tender particularly RUQ and epigastric Musculoskeletal: General: Swelling present. Right lower leg: No edema. Left lower leg: No edema. Comments: Minimal LE edema today. Still has gravity dependent edema of posterior upper extremities Neurological: General: No focal deficit present. Mental Status: He is alert. Psychiatric: Mood and Affect: Mood is depressed. Behavior: Behavior is agitated. Thought Content: Thought content includes suicidal ideation. Thought content does not include suicidal plan. Went through patient's supplements at bedside. 1- mens prostate formula 2- fiber capsules 3- arriaza's yeast 4- Ca, Mg, Zinc 5- vision formula 6- triple omega 7- alfalfa 8- hair, skin, nail supplement 9- complete multivitamin 10- Vitamin B complex 11- iron 12- aller-zyr (zyrtec) 13- ginko biloba 14- saw palmetto 15- cinnamon 16- apple cider vinegar 17- resveratrol 18- aspirin 19- ashwaghanda Laboratory Data Recent Labs Component Name 11/09/24 0259 11/08/24 0301 11/07/24 0843 WBC 10.9* 10.3 10.8* HGB 10.9* 11.3* 11.9* HCT 32.5* 33.6* 35.0* PLTCOUNT 125* 106* 91* MCV 87.4 88.0 87.5 Recent Labs Component Name 11/09/24 02511/08/24 0301 11/07/24 0843 PT 15.0* 15.6* 15.3* INR 1.2 1.3 1.2 Recent Labs Component Name 11/09/24 02511/08/24 0301 11/07/24 0843 NA 129* 134* 131* POTASSIUM 3.5 3.2* 3.2* CL 97* 97* 98 CO2 26 27 26 BUN 17 24 30* CREATININE 0.84 0.88 0.89 Recent Labs Component Name 11/09/24 02511/08/24 03011/07/24 0843 CALCIUM 7.3* 7.1* 7.3* PHOS 2.6* 2.5* 2.1* Recent Labs Component Name 11/09/24 02511/08/24 0301 11/07/24 0843 PROT 4.7* 4.5* 4.8* ALB 2.2* 2.1* 2.1* ALKPHOS 114 107 112 AST 63* 55* 61* ALT 226* 287* 396* TBILI 1.1 1.3* 1.5* No results for input(s): CKTOTAL, CKMBCK2, TROPONINI in the last 02521 hours. No results for input(s): VANCORNDM, VANCTROUGH in the last 00078 hours. Microbiology Results (Displays last 21 days for this encounter ONLY) Procedure Component Value - Date/Time CULTURE BLOOD [[id number]] (Normal) Collected: 11/02/241758 Lab Status: Final result Specimen: Blood from BC Peripheral 1 Updated: 11/07/242331 Culture No growth day 5 CULTURE BLOOD [[id number]] (Normal) Collected: 11/02/241758 Lab Status: Final result Specimen: Blood from BC Peripheral 2 Updated: 11/07/242331 Culture No growth day 5 RESPIRATORY PANEL WITH SARS-COV-2 BY PCR ([facility]) [[id number]] (Normal) Collected: 11/02/24 0818 Lab Status: Final result Specimen: Microbiology from Nasopharyngeal Updated: 11/02/24 1624 Adenovirus PCR Not detected Coronavirus 229E PCR Not detected Coronavirus HKU1 PCR Not detected Coronavirus NL63 PCR Not detected Coronavirus OC43 PCR Not detected COVID-19 PCR Not detected Human Metapneumovirus PCR Not detected Human Rhinovirus/Enterovirus PCR Not detected Influenza A PCR Not detected Influenza B PCR Not detected Parainfluenza Virus 1 PCR Not detected Parainfluenza Virus 2 PCR Not detected Parainfluenza Virus 3 PCR Not detected Parainfluenza Virus 4 PCR Not detected Respiratory Syncytial Virus PCR Not detected Bordetella parapertussis PCR Not detected Bordetella pertussis PCR Not detected Chlamydia pneumoniae PCR Not detected Mycoplasma pneumoniae PCR Not detected Narrative: This nucleic amplification assay has received FDA authorization via the [employer]way. Imaging US Abdomen Ltd W Comp Doppler Result Date: 11/02/2024 IMPRESSION: 1. No discrete hepatic lesion or intrahepatic biliary dilation. Patent hepatic vasculature. 2. Sludge in the gallbladder. 3. Incidental right pleural effusion 4. Trace fluid in the Angulo's pouch Report dictated by Zachary Rushing MD (Animal Humane Agent Supervisor) IZan MD have personally reviewed and interpreted this examination/study. > Interpreting Provider: Zan Cortes MD on 11/02/2024 1:40 PM XR Chest 1Vw Portable Result Date: 11/02/2024 IMPRESSION: Cardiomegaly. Atherosclerotic aorta. Bilateral interstitial and hazy airspace opacities, which may represent pulmonary edema or pneumonia in the appropriate clinical setting. No large effusion or pneumothorax. > Interpreting Provider: Taisha Seymour MD on 11/02/2024 12:55 PM XR Abdomen Kub Portable Result Date: 11/02/2024 IMPRESSION: Mild mildly dilated small bowel loops measuring up to 4 cm. Gas is identified in the distal colon and rectum. Findings may represent ileus or low- grade obstruction. Mild to moderate left predominant colonic stool volume. Mild left basilar atelectasis/airspace disease. Cardiomegaly. >Interpreting Provider: Taisha Seymour MD on 11/02/2024 12:54 PM Relevant labs and imaging data reviewed on [facility]. Assessment and Plan Hepatic trauma, initial encounter (POA: Unknown) KASEY (acute kidney injury) (POA: Unknown) Other specified anemias (POA: Unknown) Urinary retention (POA: Unknown) Heart failure with reduced ejection fraction (HCC) (POA: Unknown) Cardiogenic shock (HCC) (POA: Unknown) Elevated troponin (POA: Unknown) Transaminitis (POA: Yes) Thrombocytopenia (POA: Unknown) Assessment & Plan Cardiogenic shock (HCC) Elevated troponin Heart failure with reduced ejection fraction (HCC) Entresto 24-26 BID - holding starting this afternoon until seen by CTS Jardiance 10 mg Qdaily - not started yet, waiting on CTS recs Metoprolol succinate 25 mg qdaily Spironolactone 12.5 mg Lasix 40 PO daily - held today Telemetry Fluid restrict 1800 mL [facility] cardiac MRI tomorrow Hepatic trauma, initial encounter Transaminitis Ddx: shock liver vs acetaminophen toxicity vs [...] antibodies, ANCA panel, anti-LKM1 antibodies, IgG, serum [id number] - ceruloplasmin normal - F-Actin antibody IgG normal - mitochondrial M2 antibody normal - hepatitis panel normal - Dc all OTC supplements - Daily CBC, CMP, INR Hyponatremia Ddx: heart failure/ low effective arterial blood volume exacerbated by spironolactone vs CKD vs adrenal insufficiency vs SIADH Hypotonic, volume overload makes most likely etiology HF - fluid restrict 1800 mL KASEY (acute kidney injury) Cardiorenal vs hepatorenal syndrome 10/31 US with solid hypoechoic left renal mass and subcentimeter L renal cyst Per rads: CT urogram or abdominal MRI w contrast (will be ordered outpatient) Start cardiac diet - fluid restrict to 1800 mL Hold lasix today Other specified anemias Thrombocytopenia Iron panel consistent with chronic disease - HgB stable, continue to monitor - monitor platelet counts closely. Stable today. Urinary retention Patient voiding without catheter - provided bedside urinal - can restart external catheter if needed - tamsulosin 0.4mg daily Diet: DIET CARDIAC DVT Prophylaxis: Heparin (DVT Prophylaxis Dose) Code Status: LIMITED RESUSCITATION-PRIOR AND AFTER ARREST [place] Candidate?: No Electronically Signed By: Jared Vasquez MD 11/09/2024 7:34 AM The above assessment and plan will be discussed with attending physician. This note is not final until attested by the attending physician. Cosigned by Joel Cao III, MD at 11/12/2024 11:27 AM CDT Associated attestation - Joel Cao III, MD - 11/12/2024 11:27 AM CDT I have verified the documentation of the resident including all history, exam, and medical decision-making details. I have personally performed a physical exam and have personally reviewed the data to support my medical decision-making as outlined in their note. I agree with their assessment and plan. I have reviewed the problem list and specifically note that the patient is presently being treated and evaluated for: Hepatic trauma, initial encounter (POA: Unknown) Other specified anemias (POA: Unknown) Urinary retention (POA: Unknown) Heart failure with reduced ejection fraction (HCC) (POA: Unknown) Cardiogenic shock (HCC) (POA: Unknown) Elevated troponin (POA: Unknown) Transaminitis (POA: Yes) Thrombocytopenia (POA: Unknown) Hyponatremia (POA: No) Overflow diarrhea (POA: No) Depression (POA: No) Hyponatremia (POA: No) Corrections/Additions: - Date of Service: Date of Resident's note Joel Cao MD * Andres Turner MD - 11/08/2024 9:20 PM CDT .[facility] DEPARTMENT OF PULMONARY, CRITICAL CARE, AND SLEEP MEDICINE SPIROMETRY TEST Please see technologist's comments mentioned in the report. INTERPRETATION: SPIROMETRY: FVC: decreased. FEV1: decreased. FEV1/FVC ratio is normal. Flow volume has flattening of the expiratory limb. IMPRESSION: 1. Non-specific ventilatory limitation. Full PFT has to be done to comment on Lung Volumes. 2. There is no previous study available for comparison. Andres Turner MD Pulmonary & Critical Care Fellow Division of Pulmonary, Critical Care, and Sleep Medicine [facility] * Liza Castanon, OT - 11/08/2024 3:09 PM CDT [facility] Physical Medicine and Rehabilitation Occupational Therapy Progress Note Patient: Gabino Ocampo Med Record Number: [id number] Date of : 1950 Age: [age] year old PPE worn by staff: gloves;mask - procedural PPE worn by patient: gown - patient, clean;socks - clean Tech: na Recommendations: Discharge OT Discharge Recommendations: Patient would benefit from ongoing therapy with home health Nurse and Physical Therapy contacted regarding patient status and/or discharge plan. Activity Level: as tolerated PRECAUTIONS: Weight Bearing Status: Lower Extremity;Upper Extremity Weight Bearing: WBAT SUBJECTIVE: Subjective: pt agreeable to therapy; seated on BSC at OT start of session. What matters most to this patient? To get stronger Pain Assessment: Pain Assessment Pain Scale/Observation: No/denies pain OBJECTIVE: At start of therapy session, patient found on BSC; RN in [facility] General Appearance: 74 y/o male, seated NAD Vitals: (*Assess the 3 levels of oxygen saturations both for room air and 02 unless rest on room air is 88% or less). Rest BP: HR: Sp02 Sp02 Room Air L O2 Post Activity BP: HR: Sp02 Sp02 L O2 Room Air Observations: VSS throughout; no signs of distress Mental Status/Cognition: Level of Consciousness-Adult: Other (comment) (A&Ox4) Attention Span: Appears intact Memory: Appears intact Following Commands: Follows one step commands consistently Safety Judgement: Decreased awareness of need for safety Awareness of Errors: Assistance required to identify errors made Problem Solving: Assistance required to identify errors made Mobility: a gait belt and non-slip socks were used for all out of bed activity this date. Bed Mobility: Rolling: Activity Does Not Occur Supine to Sit: Activity Does Not Occur (pt seated on BSC at start of session) Sit to Supine: Stand By Assist Transfers: Sit to Stand: Stand By Assist Stand to Sit: Stand By Assist Type of Transfer: Stand Pivot Transfer (BSC to bed with SBA) Transfer Device: Gait belt Functional Ambulation: Patient ambulated 3-4 steps to bed with stand by assist using no device; pt declines further distance 2/2 fatigue. Balance: Balance Scales/Tests Used: Sitting: Static/Dynamic;Standing: Static/Dynamic Sitting - Static: Good Sitting - Dynamic: Good Standing - Static: Fair + Standing - Dynamic: Fair + Comments: Activities of Daily Living: Feeding: Activity Does Not Occur Oral Facial Hygiene: Declined Bathing: Declined Upper Body Dressing: Activity Does Not Occur Lower Body Dressing: Other (Comment) (pt states ability to don socks with independence/figure four technique; declines trialling.) Toileting: Maximal Assistance (pt declines attempts at completing own norma care hygiene stating I can't get my arms around; requires max assist to complete. Educated on need to try completing on his own in upcoming sessions since by lives by himself) Splint Issued/Checked: none ACTIVITY TOLERANCE: Activity Tolerance: Complains of fatigue after standing activity/gait AM-PAC 6 Clicks Daily Activity Raw Score:: 20 TREATMENT/INTERVENTIONS: ADL training Functional transfer training Endurance training Bed mobility Safety awareness EDUCATION: While performing OT, Patient was instructed in:functional mobility training, self-care training, safety awareness/fall precautions Presented to patient who demonstrates Fair understanding of instructions given. INFORMED CONSENT TO TREATMENT: Plan of care including recommended therapy, goals and frequency, discussed with patient who understands and agrees to proceed. ASSESSMENT: Functional performance limited due to: limited activities of daily living, decreased functional mobility, decreased functional balance, and decreased endurance and activity tolerance. Patient continues to benefit from skilled Occupational Therapy to achieve the following functional goals. Short Term Goals: Goal Formation With patient Patient will perform lower extremity dressing independently Patient will transfer to standard toilet independently Patient will tolerate treatment 25 minutes and with good endurance Patient will demonstrate good understanding of safety education, energy conservation, modified sternal precautions , and adaptive equipment Soil Surveyor Goal(s): Patient to be independent/baseline with functional mobility and self care and be able to safely discharge to prior level of care Plan: Patient continues to benefit from skilled therapy services., Continue with goals as established. If patient is discharged from the facility, this note serves as a discharge summary if further occupational therapy visits did not occur. Refer to filed flowsheet for further details. Following therapy session, patient left in bed, with bed alarm on , with RN, Bari aware, with therapy cues visible on white board. * Rubi Pascal, PT - 11/08/2024 11:06 AM CDT [facility] Physical Medicine and Rehabilitation Physical Therapy Progress Note Patient: Gabino Ocampo Med Record Number: [id number] Date of : 1950 Age: [age] year old PPE worn by staff: gloves;mask - procedural PPE worn by patient: gown - patient, clean;socks - clean Recommendations: Discharge PT Discharge Recommendations: Patient would benefit from ongoing therapy with home health Patient currently using Wheeled Walker and has equipment at home. No equipment needs if d/c home. SUBJECTIVE: Subjective: I guess I can walk PATIENT GOALS / WHAT MATTERS MOST TO THE PATIENT: Patient's Primary Concern: Return to home Pain Assessment: Pain Assessment Pain Scale/Observation: No/denies pain PRECAUTIONS: Weight Bearing Status: (No restrictions) Activity Level: Activity as Tolerated OBJECTIVE: At start of therapy session, patient found in bed and with no alarm General Appearance: 74 year old male laying in the bed, NAD Vitals: (*Assess the 3 levels of oxygen saturations both for room air and 02 unless rest on room air is 88% or less). Rest BP: 106/67 HR: 89 Sp02 94% Room Air Observations: No signs of distress or patient c/o shortness of breath/dizziness during treatment. Mental Status/Cognition: Level of Consciousness-Adult: (A&O x 4) Cognition: (Alert, agreeable to PT) Attention Span: Appears intact Following Commands: Follows one step commands consistently Mobility: A gait belt and non-slip socks were used for all out of bed activity this date. Bed Mobility: Supine to Sit: Stand By Assist with HOB in semi-fowlers position Transfers: Sit to Stand: Stand By Assist (cues for hand placement) Stand to Sit: Stand By Assist (cues for controlled descent) Toilet Transfers: Minimal Assistance Gait: Weight Bearing Status: (No restrictions) Distance Ambulated (ft): 150 FEET Ambulation: Assistive Device: Gait Belt;Walker-2 Wheeled Ambulation: Level of Assistance: Stand By Assist Ambulation: Gait Deviations: Marilyn - Decreased;Increased Trunk Flexion;Step Length - Decreased Balance: Balance Scales/Tests Used: Sitting: Static/Dynamic;Standing: Static/Dynamic Sitting - Static: Good Sitting - Dynamic: Good - Standing - Static: Fair + Standing - Dynamic: Fair -;With Both Upper Extremity's Support ACTIVITY TOLERANCE: fair TREATMENT/INTERVENTIONS: bed mobility training, transfer training, gait training, and monitoring ofvitals AM-PAC 6 Clicks Mobility Raw Score:: 18 EDUCATION: While performing PT, Patient was instructed in:functional mobility training, safety awareness/fall precautions , discharge planning, use of call light Presented to patient who demonstrates Fair understanding of instructions given. ASSESSMENT: Patient would benefit from additional Physical Therapy sessions to achieve the following functionalgoals to enhance independence. Short Term Goals: Goal Formation With patient Patient will perform bed mobility with modified independence Patient will transfer sit to/from stand with modified independence and with least restrictive assistive device Patient will transfer bed to/from chair with modified independence and with least restrictive assistive device Patient will ambulate 150 feet with modified independence and with least restrictive assistive device Patient will ascend/descent 2 steps with modified independence and with least restrictive assistivedevice Soil Surveyor Goal(s): Patient to be independent with functional mobility and self-care and should be able to safely discharge to prior level of care. INFORMED CONSENT TO TREATMENT: Plan of care including recommended therapy, goals and frequency, discussed with patient who understands and agrees to proceed. Equipment Issued: none Plan: Patient continues to benefit from skilled therapy services., Continue with goals as established. If patient is discharged from the facility, this note serves as a discharge summary if further physical therapy visits did not occur. Refer to filed flowsheet for further details. Following therapy session, patient left in bed, with bed alarm on , with call light within reach, with RNBari aware, with therapy cues visible on white board, with fall mats in place, all lines/tubes intact. * Jb Balbuena - 11/08/2024 8:45 AM CDT [facility] Cardiology Consultation Progress Note Patient: Gabino Ocampo Date of Admission: 11/01/2024 LOS: 7 Interval History Patient experienced bradycardia to 40s and hypotension to 99/80 yesterday after entresto. On exam, he was comfortable, VSS, no chest pain or dyspnea overnight. CTS PA saw patient, waiting to see Dr. Hartman. Patient's son stated he is thinking towards CABG at the current moment. HPI Gabino Ocampo is a 74 year old male with PMH of HFrEF (EF of 25%) who presented from OSH for acute liver injury c/b KASEY and concern for cardiogenic shock. Patient initially presented on 10/23 for SOB but left AMA. He returned on 10/30/2024 and was found to have AST >7000, ALT> 5800. Patient denies ETOH use. Troponins were also elevated. Patient transferred to [facility] for liver team. Prior to transfer patient was started on NAC for liver injury and dobutamine for concern for cardiogenic shock in setting of reduced EF of 25%. Upon arrival, patient Aox3 (person, place and time) and denies any acute pain. He does report some SOB which upon further evaluation is described as nasal congestion. Patient denies having knowledge of any liver or heart disease or illness in the past. Cardiology consulted 11/02 after concerns for cardiogenic shock. Per chart review patient has reported EF of 25% from OSH. His son states that patient has been feeling short of breath for 1.5 weeks, however the somnolence is new this admission. BNP 847, troponin 113, 137, 169. Lactate 2.8, 2.8. Signs of liver injury and KASEY with LFTs in the 3000s and Cr 3.85. Heart cath revealed multi- vessel CAD and ischemic cardiomyopathy. Objective BP 111/71 (BP Location: Left arm, Patient Position: Lying) Pulse 90 Temp 98.9 ??F (37.2 ??C) (Oral) Resp 18 Ht 1.676 m (5' 6) Wt 67.5 kg (148 lb 13 oz) SpO2 95% Physical exam based on Interventional Cards note, General: Well-developed in NAD. HEENT: NC/AT. PERRL. Neck: Supple. No tenderness, enlargement, JVD elevated (~14). Lungs: Bibasilar rales. No respiratory distress. Heart: RRR. Abdomen: Soft. NT/ND. Ext/MS: Trace KURT, no cyanosis Neuro: A&O x3. No focal deficits noted. Skin: No obvious rashes or lesions noted. Pulses: Radial : 1+ bilateral Femoral artery: 2+ bilateral All labs, imaging, and diagnostics reviewed. Assessment and Plan # Cardiogenic shock # Acute liver injury # KASEY # Newly diagnosed HFrEF, acute on chronic # Multivessel coronary artery disease # Ischemic cardiomyopathy Cardiogenic shock likely related to shock liver vs priamry liver pathology causing acute liver injury. The etiology of cardiogenic shock is due to ischemic cardiomyopathy from multi vessel coronary artery disease. We discussed the risk and benefits of getting PCI vs CABG. We believe this patient would be better suited for PCI, given his co morbidities and desire to not undergo surgery. However, CTS input is needed for CABG. The patient's clinical status is improving. He is currently on Metoprolol Succinate 25 qd, Entresto 24-26 bid, jardiance 49-51 bid, lasix 40qd, spironolactone 12.5 qd, ASA81 qd, and heparin ppx. Recommendations: - Hold jardiance and Entresto today due to hypotension and bradycardia - Can resume if no need for surgery - Continue metoprolol, spironolactone, and lasix - Okay to start rosuvastatin 20 qd - Waiting for CABG recs from CTS discussion - Please replace K aggressively - Keep K>4, Phos > 3, Mg>2 - Continue telemetry We will follow. Staffed with Dr. Rubio. Please see attending attestation for any changes to recommendations. Jb Balbuena M4 Cardiology Consult 11/08/2024 8:45 AM Cosigned by Butch Rubio MD at 11/08/2024 3:05 PM CDT Associated attestation - Butch Rubio MD - 11/08/2024 3:05 PM CDT I have verified the documentation of the Medical student, including all history, exam, and medical decision-making details. I have personally performed a physical exam and have personally reviewed the data to support my medical decision-making as outlined in the student's note, and I arrive independently at the same conclusion. Date of Service is the date mentioned in the student's note. Vu Rubio MD MPH * Jared Vasquez MD - 11/08/2024 7:56 AM CDT [facility] Internal Medicine Progress Note Name: Gabino Ocampo Room/Bed: 737/01 : 1950 74 year old PCP: No primary care provider on file. Admit Date/Time: 11/01/2024 9:26 PM LOS: 7 Subjective Interval update: CTS saw patient, says the patient should be medically optimized further prior to CABG. Cardiology believes he is better suited for PCI. Patient states he would like his sons to decide. Worked with [facility] who recommended home health for additional PT on discharge. Hospital course: Gabino Ocampo is 74 year old male w/ PMH of HFrEF (EF of 25%) who presented from OSH for acute liver injury c/b KASEY and concern for cardiogenic shock. Patient initially presented on 10/23 for SOB but left AMA. He returned on 10/30/2024 and was found to have AST >7000, ALT> 5800. Patient denies ETOH use. Troponins were also elevated. Prior to transfer patient was started on NAC for liver injury and dobutamine for concern for cardiogenic shock in setting of reduced EF of 25%. Pt states he hasn't seen a doctor in years but met a PCP last week who started him on torsemide and metoprolol.He states he does not take any medications, but does take a number of supplements in which he is unable to recall all their names. He denies taking tylenol and states he is not a drinker. arrival to [facility], patient Aox3 (person, place and time) and has acutely diffuse abdominal pain. He reports SOB and has been having congestion and cough for the past two weeks. Patient denies having knowledge of any liver disease or illness in the past. He further states that he has not had a BM in 1-2 weeks, and hasn't eaten in 2 days. He denies nausea and vomiting. 11/02 Pt had rectal exam without stool impaction due to empty rectal vault. Enemas were deployed and pt had 2 Bms with relief of some pain. US with doppler shows no hepatic lesions or intrahepatic biliary dilation with patent hepatic vasculature. GB sludge. Incidental right pleural effusion. Trace fluid in the Angulo's pouch TTE shows EF of 26% with a moderately dilated LV, globally hypokinetic LV wall motion, and severelyreduced systolic function. Dilated RV with normal systolic function. underwent R/L heart cath. Revealed atherosclerotic vascular disease. Added GDMT medications as tolerated. Worked with PT. Held afternoon dose of Entresto today per cardiology recs. Family Notification Documentation Contact made: 11/08/2024 2:54 PM Person(s) contacted: José Miguel Ocampo, jane Method of communication: Phone Phone number: [phone] Duration of discussion: 5 minutes Summary of discussion Called to provide general updates to his son. He said that based on the information they have now and after discussing with the patient's other sons, they are leaning more towards a CABG than PCI. They understood the long recovery process after the CABG. He asked about kidney and liver function so I provided updates. Objective Temp: [97.5 ??F (36.4 ??C)-98.9 ??F (37.2 ??C)] 98.9 ??F (37.2 ??C) Pulse: [43-96] 90 Resp: [17-18] 18 BP: (99-117)/(62-86) 111/71 Weight change: Intake/Output Summary (Last 24 hours) at 11/08/2024 0756 Last data filed at 11/08/2024 0338 Gross per 24 hour Intake 347 ml Output 650 ml Net -303 ml Physical Exam: Physical Exam Constitutional: General: He is not in acute distress. Appearance: Normal appearance. HENT: Head: Normocephalic. Eyes: Extraocular Movements: Extraocular movements intact. Pupils: Pupils are equal, round, and reactive to light. Cardiovascular: Rate and Rhythm: Normal rate and regular rhythm. Heart sounds: No murmur heard. Comments: Bilateral DP pulses difficult to palpate, normal radial pulses No JVD No hepatojugular reflux Pulmonary: Effort: Pulmonary effort is normal. No respiratory distress. Breath sounds: Normal breath sounds. Abdominal: General: Bowel sounds are normal. There is distension. Palpations: Abdomen is soft. There is no mass. Tenderness: There is abdominal tenderness. There is no guarding. Comments: Softer today than previous, but plate drying machine tender particularly RUQ and epigastric Musculoskeletal: General: Swelling present. Right lower leg: No edema. Left lower leg: No edema. Comments: Minimal LE edema today. Still has gravity dependent edema of posterior upper extremities Neurological: General: No focal deficit present. Mental Status: He is alert and oriented to person, place, and time. Mental status is at baseline. Psychiatric: Mood and Affect: Mood normal. Went through patient's supplements at bedside. 1- mens prostate formula 2- fiber capsules 3- arriaza's yeast 4- Ca, Mg, Zinc 5- vision formula 6- triple omega 7- alfalfa 8- hair, skin, nail supplement 9- complete multivitamin 10- Vitamin B complex 11- iron 12- aller-zyr (zyrtec) 13- ginko biloba 14- saw palmetto 15- cinnamon 16- apple cider vinegar 17- resveratrol 18- aspirin 19- ashwaghanda Laboratory Data Recent Labs Component Name 11/08/24 0301 11/07/24 0843 11/06/24 0341 WBC 10.3 10.8* 12.1* HGB 11.3* 11.9* 11.7* HCT 33.6* 35.0* 34.3* PLTCOUNT 106* 91* 91* MCV 88.0 87.5 85.5 Recent Labs Component Name 11/08/24 0301 11/07/24 0843 11/06/24 0341 PT 15.6* 15.3* 15.8* INR 1.3 1.2 1.3 Recent Labs Component Name 11/08/24 0301 11/07/24 0843 11/06/24 0341 NA 134* 131* 138 POTASSIUM 3.2* 3.2* 3.5 CL 97* 98 100 CO2 27 26 29 BUN 24 30* 52* CREATININE 0.88 0.89 1.16 Recent Labs Component Name 11/08/24 0301 11/07/24 0843 11/06/24 0341 CALCIUM 7.1* 7.3* 7.7* PHOS 2.5* 2.1* 2.3* Recent Labs Component Name 11/08/24 0301 11/07/24 0843 11/06/24 0341 PROT 4.5* 4.8* 5.3* ALB 2.1* 2.1* 2.6* ALKPHOS 107 112 121 AST 55* 61* 109* ALT 287* 396* 722* TBILI 1.3* 1.5* 2.3* No results for input(s): CKTOTAL, CKMBCK2, TROPONINI in the last 37324 hours. No results for input(s): VANCORN, VANCTROUGH in the last 47743 hours. Microbiology Results (Displays last 21 days for this encounter ONLY) Procedure Component Value - Date/Time CULTURE BLOOD [[id number]] (Normal) Collected: 11/02/241758 Lab Status: Final result Specimen: Blood from Peripheral 1 Updated: 11/07/24 2332 Culture No growth day 5 CULTURE BLOOD [[id number]] (Normal) Collected: 11/02/241758 Lab Status: Final result Specimen: Blood from BC Peripheral 2 Updated: 11/07/24 2332 Culture No growth day 5 RESPIRATORY PANEL WITH SARS-COV-2 BY PCR ([facility]) [[id number]] (Normal) Collected: 11/02/24 0818 Lab Status: Final result Specimen: Microbiology from Nasopharyngeal Updated: 11/02/24 1624 Adenovirus PCR Not detected Coronavirus 229E PCR Not detected Coronavirus HKU1 PCR Not detected Coronavirus NL63 PCR Not detected Coronavirus OC43 PCR Not detected COVID-19 PCR Not detected Human Metapneumovirus PCR Not detected Human Rhinovirus/Enterovirus PCR Not detected Influenza A PCR Not detected Influenza B PCR Not detected Parainfluenza Virus 1 PCR Not detected Parainfluenza Virus 2 PCR Not detected Parainfluenza Virus 3 PCR Not detected Parainfluenza Virus 4 PCR Not detected Respiratory Syncytial Virus PCR Not detected Bordetella parapertussis PCR Not detected Bordetella pertussis PCR Not detected Chlamydia pneumoniae PCR Not detected Mycoplasma pneumoniae PCR Not detected Narrative: This nucleic amplification assay has received FDA authorization via the [employer]way. Imaging US Abdomen Ltd W Comp Doppler Result Date: 11/02/2024 IMPRESSION: 1. No discrete hepatic lesion or intrahepatic biliary dilation. Patent hepatic vasculature. 2. Sludge in the gallbladder. 3. Incidental right pleural effusion 4. Trace fluid in the Angulo's pouch Report dictated by Zachary Rushing MD (Animal Humane Agent Supervisor) IZan MD have personally reviewed and interpreted this examination/study. > Interpreting Provider: Zan Cortes MD on 11/02/2024 1:40 PM XR Chest 1Vw Portable Result Date: 11/02/2024 IMPRESSION: Cardiomegaly. Atherosclerotic aorta. Bilateral interstitial and hazy airspace opacities, which may represent pulmonary edema or pneumonia in the appropriate clinical setting. No large effusion or pneumothorax. > Interpreting Provider: Taisha Seymour MD on 11/02/2024 12:55 PM XR Abdomen Kub Portable Result Date: 11/02/2024 IMPRESSION: Mild mildly dilated small bowel loops measuring up to 4 cm. Gas is identified in the distal colon and rectum. Findings may represent ileus or low- grade obstruction. Mild to moderate left predominant colonic stool volume. Mild left basilar atelectasis/airspace disease. Cardiomegaly. >Interpreting Provider: Taisha Seymour MD on 11/02/2024 12:54 PM Relevant labs and imaging data reviewed on [facility]. Assessment and Plan Hepatic trauma, initial encounter (POA: Unknown) KASEY (acute kidney injury) (POA: Unknown) Other specified anemias (POA: Unknown) Urinary retention (POA: Unknown) Heart failure with reduced ejection fraction (HCC) (POA: Unknown) Cardiogenic shock (HCC) (POA: Unknown) Elevated troponin (POA: Unknown) Transaminitis (POA: Yes) Thrombocytopenia (POA: Unknown) Assessment & Plan Cardiogenic shock (HCC) Elevated troponin Heart failure with reduced ejection fraction (HCC) Entresto 24-26 BID - holding starting this afternoon until seen by CTS Jardiance 10 mg Qdaily - not started yet, waiting on CTS recs Metoprolol succinate 25 mg qdaily started yesterday Spironolactone 12.5 mg today, assess response Lasix 40 PO daily Telemetry Fluid restrict 1800 mL F/u CTS recommendations s/p cardiac cath -CT chest, carotid duplex, PFTs Hepatic trauma, initial encounter Transaminitis Ddx: shock liver vs acetaminophen toxicity vs [...] ascites. Trace fluid morrisons pouch. PLAN: AMA, MEREDTIH, Antismooth muscle antibodies, ANCA panel, anti-LKM1 antibodies, IgG, serum [id number] - ceruloplasmin normal - F-Actin antibody IgG normal - mitochondrial M2 antibody normal - hepatitis panel normal - Dc all OTC supplements - Daily CBC, CMP, INR KASEY (acute kidney injury) Cardiorenal vs hepatorenal syndrome 10/31 US with solid hypoechoic left renal mass and subcentimeter L renal cyst Per rads: CT urogram or abdominal MRI w contrast (will be ordered outpatient) Start cardiac diet - fluid restrict to 1800 mL Restart lasix Other specified anemias Thrombocytopenia Iron panel consistent with chronic disease - HgB stable, continue to monitor - monitor platelet counts closely. Stable today. Urinary retention Patient voiding without catheter - provided bedside urinal - can restart external catheter if needed - tamsulosin 0.4mg daily Diet: DIET CARDIAC DVT Prophylaxis: Heparin (DVT Prophylaxis Dose) Code Status: LIMITED RESUSCITATION-PRIOR AND AFTER ARREST Bordley Candidate?: No Electronically Signed By: Jared Vasquez MD 11/08/2024 7:56 AM The above assessment and plan will be discussed with attending physician. This note is not final until attested by the attending physician. * Melo Antonio RN - 11/07/2024 11:43 AM CDT Care Coordination Progress Note Expected Discharge Date: 11/10/2024 Discharge Plan: Patient is new to my service. Discharge needs dependent on response to clinical treatment and therapy recommendations. CM will continue to follow. Will likely discharge to home when medically ready. Current rec is for home health. Family Support (Name and Phone): Extended Emergency Contact Information Primary Emergency Contact: José Miguel Ocampo Mobile Relation: Son Secondary Emergency Contact: Edgard Ocampo Mobile Relation: Son Transportation at Discharge: Family: READMISSION RISK SCORE is 14 at 11:45 AM 11/07/2024.: Name: Melo Antonio RN [id number] * Jb Balbuena - 11/07/2024 11:31 AM CDT [facility]patient Cardiology Consultation Progress Note Patient: Gabino Ocampo Date of Admission: 11/01/2024 LOS: 6 Interval History Patient was comfortable on exam today and slightly grumpy, wanting to go home. He was HDS on exam today. Yesterday, underwent L/R heart cath revealing multi-vessel CAD and ischemic cardiomyopathy. HPI Gabino Ocampo is a 74 year old male with PMH of HFrEF (EF of 25%) who presented from OSH for acute liver injury c/b KASEY and concern for cardiogenic shock. Patient initially presented on 10/23 for SOB but left AMA. He returned on 10/30/2024 and was found to have AST >7000, ALT> 5800. Patient denies ETOH use. Troponins were also elevated. Patient transferred to [facility] for liver team. Prior to transfer patient was started on NAC for liver injury and dobutamine for concern for cardiogenic shock in setting of reduced EF of 25%. Upon arrival, patient Aox3 (person, place and time) and denies any acute pain. He does report some SOB which upon further evaluation is described as nasal congestion. Patient denies having knowledge of any liver or heart disease or illness in the past. Cardiology consulted 11/02 after concerns for cardiogenic shock. Per chart review patient has reported EF of 25% from OSH. His son states that patient has been feeling short of breath for 1.5 weeks, however the somnolence is new this admission. BNP 847, troponin 113, 137, 169. Lactate 2.8, 2.8. Signs of liver injury and KASEY with LFTs in the 3000s and Cr 3.85. Heart cath revealed multi- vessel CAD and ischemic cardiomyopathy. Objective BP 109/70 (BP Location: Right arm, Patient Position: Lying) Pulse 95 Temp 98.3 ??F (36.8 ??C) (Oral) Resp 20 Ht 1.676 m (5' 6) Wt 67.5 kg (148 lb 13 oz) SpO2 94% Physical exam based on Interventional Cards note, General: Well-developed in NAD. HEENT: NC/AT. PERRL. Neck: Supple. No tenderness, enlargement, JVD elevated (~14). Lungs: Bibasilar rales. No respiratory distress. Heart: RRR. Abdomen: Soft. NT/ND. Ext/MS: Trace KURT, no cyanosis Neuro: A&O x3. No focal deficits noted. Skin: No obvious rashes or lesions noted. Pulses: Radial : 1+ bilateral Femoral artery: 2+ bilateral All labs, imaging, and diagnostics reviewed. Assessment and Plan # Cardiogenic shock # Acute liver injury # KASEY # Newly diagnosed HFrEF, acute on chronic # Multivessel coronary artery disease # Ischemic cardiomyopathy Cardiogenic shock likely related to shock liver vs priamry liver pathology causing acute liver injury. The etiology of cardiogenic shock is due to ischemic cardiomyopathy from multi vessel coronary artery disease. We discussed the risk and benefits of getting PCI vs CABG. We believe this patient would be better suited for PCI, given his co morbidities and desire to not undergo surgery. However, CTS input is needed for CABG. The patient's clinical status is improving and we can shift towards full GDMT. He is currently on Metoprolol Succinate 25 qd, Entresto 24-26 bid, ASA 81 qd. Recommendations: - Lasix 40 qd po, jardiance 10 qd, and spirnolactone 25 qd - At DC, start rosuvastatin 20 qd if LFT improved on CMP - Consult cardiothoracic for CABG - Please replace K aggressively - Keep K>4, Phos > 3, Mg>2 - Continue telemetry We will follow. Staffed with Dr. Rubio. Please see attending attestation for any changes to recommendations. Jb Huffman Cardiology Consult 11/07/2024 11:31 AM Cosigned by Butch Rubio MD at 11/08/2024 3:06 PM CDT Associated attestation - Butch Rubio MD - 11/08/2024 3:06 PM CDT I have verified the documentation of the Medical student, including all history, exam, and medical decision-making details. I have personally performed a physical exam and have personally reviewed the data to support my medical decision-making as outlined in the student's note, and I arrive independently at the same conclusion. Date of Service is the date mentioned in the student's note. Vu Rubio MD MPH * Jared Vasquez MD - 11/07/2024 7:22 AM CDT [facility] Internal Medicine Progress Note Name: Gabino Ocampo Room/Bed: [facility]/ : 1950 74 year old PCP: No primary care provider on file. Admit Date/Time: 11/01/2024 9:26 PM LOS: 6 Subjective Interval update: Has had several bowel movements in last 24 hours. Discontinuing suppository and miralax. Waiting for CTS recommendations regarding CABG. Has had low systolic pressures (most recent 99/86) today without receiving any BP meds. Per cards, will give metop but hold one dose of entresto today 11/07. Will give normal dose of entresto tonight. Hospital course: Gabino Ocampo is 74 year old male w/ PMH of HFrEF (EF of 25%) who presented from OSH for acute liver injury c/b KASEY and concern for cardiogenic shock. Patient initially presented on 10/23 for SOB but left AMA. He returned on 10/30/2024 and was found to have AST >7000, ALT> 5800. Patient denies ETOH use. Troponins were also elevated. Prior to transfer patient was started on NAC for liver injury and dobutamine for concern for cardiogenic shock in setting of reduced EF of 25%. Pt states he hasn't seen a doctor in years but met a PCP last week who started him on torsemide and metoprolol.He states he does not take any medications, but does take a number of supplements in which he is unable to recall all their names. He denies taking tylenol and states he is not a drinker. 10/31 OSH US Kidney/Bladder shows solid hypoechoic left renal mass and subcentimeter left renal cyst 11/01 arrival to [facility], patient Aox3 (person, place and time) and has acutely diffuse abdominal pain.He reports SOB and has been having congestion and cough for the past two weeks. Patient denies having knowledge of any liver disease or illness in the past. He further states that he has not had a BMin 1-2 weeks, and hasn't eaten in 2 days. He denies nausea and vomiting. 11/02 Pt had rectal exam without stool impaction due to empty rectal vault. Enemas were deployed and pt had 2 Bms with relief of some pain. - 11/02 US with doppler shows no hepatic lesions or intrahepatic biliary dilation with patent hepatic vasculature. GB sludge. Incidental right pleural effusion. Trace fluid in the Angulo's pouch - 11/02 KUB shows mildly dilated small bowel loops with gas in the distal colon and rectum with mildto moderate L predominant colonic stool volume. Findings may represent ileus or low-grade obstruction 11/02 TTE shows EF of 26% with a moderately dilated LV, globally hypokinetic LV wall motion, and severely reduced systolic function. Dilated RV with normal systolic function. 11/06: underwent R/L heart cath. Revealed atherosclerotic vascular disease 11/07: restarting lasix 40 daily PO. Started entresto/metoprolol yesterday. Waiting for CTS recs. Objective Temp: [97.5 ??F (36.4 ??C)-98.7 ??F (37.1 ??C)] 98.3 ??F (36.8 ??C) Pulse: [94-100] 96 Resp: [13-20] 20 BP: (102-130)/(59-99) 102/59 Weight change: Intake/Output Summary (Last 24 hours) at 11/07/2024 0723 Last data filed at 11/07/2024 0533 Gross per 24 hour Intake 875 ml Output 1150 ml Net -275 ml Physical Exam: Physical Exam Constitutional: General: He is not in acute distress. Appearance: Normal appearance. HENT: Head: Normocephalic. Eyes: Extraocular Movements: Extraocular movements intact. Pupils: Pupils are equal, round, and reactive to light. Cardiovascular: Rate and Rhythm: Normal rate and regular rhythm. Heart sounds: No murmur heard. Comments: Bilateral DP pulses difficult to palpate, normal radial pulses No JVD No hepatojugular reflux Pulmonary: Effort: Pulmonary effort is normal. No respiratory distress. Breath sounds: Normal breath sounds. Abdominal: General: Bowel sounds are normal. There is distension. Palpations: Abdomen is soft. There is no mass. Tenderness: There is abdominal tenderness. There is no guarding. Comments: Softer today than previous, but plate drying machine tender particularly RUQ and epigastric Musculoskeletal: General: Swelling present. Right lower leg: Edema present. Left lower leg: Edema present. Comments: 1+ pitting edema bilateral LE Bilateral arms with some pitting edema, appears gravity dependent Neurological: General: No focal deficit present. Mental Status: He is alert and oriented to person, place, and time. Mental status is at baseline. Psychiatric: Mood and Affect: Mood normal. Went through patient's supplements at bedside. 1- mens prostate formula 2- fiber capsules 3- arriaza's yeast 4- Ca, Mg, Zinc 5- vision formula 6- triple omega 7- alfalfa 8- hair, skin, nail supplement 9- complete multivitamin 10- Vitamin B complex 11- iron 12- aller-zyr (zyrtec) 13- ginko biloba 14- saw palmetto 15- cinnamon 16- apple cider vinegar 17- resveratrol 18- aspirin 19- ashwaghanda Laboratory Data Recent Labs Component Name 11/06/24 03411/05/24 0307 11/04/24 0612 WBC 12.1* 10.5 9.4 HGB 11.7* 11.3* 12.7* HCT 34.3* 32.2* 35.4* PLTCOUNT 91* 106* 110* MCV 85.5 83.2 82.7 Recent Labs Component Name 11/06/24 03411/05/24 0307 11/04/24 0612 PT 15.8* 17.7* 18.2* INR 1.3 1.5 1.6 Recent Labs Component Name 11/06/2434011/05/24 2330 11/05/24 0307 NA 138 137 138 POTASSIUM 3.5 4.0 2.7* CL 100 100 99 CO2 29 29 29 BUN 52* 53* 70* CREATININE 1.16 1.17* 1.46* Recent Labs Component Name 11/06/2434011/05/24 2330 11/05/24 0307 CALCIUM 7.7* 7.6* 7.5* PHOS 2.3* 2.4* 2.8 Recent Labs Component Name 11/06/2434011/05/24 2330 11/05/24 0307 11/04/24 0612 PROT 5.3* - 5.0* 5.4* ALB 2.6* 2.6* 2.6* 2.6* 2.6* ALKPHOS 121 - 119 118 AST 109* - 171* 301* ALT 722* - 1,070* 1,580* TBILI 2.3* - 2.5* 2.7* No results for input(s): CKTOTAL, CKMBCK2, TROPONINI in the last 52964 hours. No results for input(s): VANCORNDM, VANCTROUGH in the last 52284 hours. Microbiology Results (Displays last 21 days for this encounter ONLY) Procedure Component Value - Date/Time CULTURE BLOOD [[id number]] (Normal) Collected: 11/02/24 0532 Lab Status: Preliminary result Specimen: Blood from BC Peripheral 1 Updated: 11/04/24 2330 Culture No growth CULTURE BLOOD [[id number]] (Normal) Collected: 11/02/24 1759 Lab Status: Preliminary result Specimen: Blood from BC Peripheral 2 Updated: 11/04/24 2330 Culture No growth RESPIRATORY PANEL WITH SARS-COV-2 BY PCR (ST) [[id number]] (Normal) Collected: 11/02/24 0818 Lab Status: Final result Specimen: Microbiology from Nasopharyngeal Updated: 11/02/24 1624 Adenovirus PCR Not detected Coronavirus 229E PCR Not detected Coronavirus HKU1 PCR Not detected Coronavirus NL63 PCR Not detected Coronavirus OC43 PCR Not detected COVID-19 PCR Not detected Human Metapneumovirus PCR Not detected Human Rhinovirus/Enterovirus PCR Not detected Influenza A PCR Not detected Influenza B PCR Not detected Parainfluenza Virus 1 PCR Not detected Parainfluenza Virus 2 PCR Not detected Parainfluenza Virus 3 PCR Not detected Parainfluenza Virus 4 PCR Not detected Respiratory Syncytial Virus PCR Not detected Bordetella parapertussis PCR Not detected Bordetella pertussis PCR Not detected Chlamydia pneumoniae PCR Not detected Mycoplasma pneumoniae PCR Not detected Narrative: This nucleic amplification assay has received FDA authorization via the [employer] Pathway. Imaging US Abdomen Ltd W Comp Doppler Result Date: 11/02/2024 IMPRESSION: 1. No discrete hepatic lesion or intrahepatic biliary dilation. Patent hepatic vasculature. 2. Sludge in the gallbladder. 3. Incidental right pleural effusion 4. Trace fluid in the Angulo's pouch Report dictated by Zachary Rushing MD (Animal Humane Agent Supervisor) IZan MD have personally reviewed and interpreted this examination/study. > Interpreting Provider: Zan Cortes MD on 11/02/2024 1:40 PM XR Chest 1Vw Portable Result Date: 11/02/2024 IMPRESSION: Cardiomegaly. Atherosclerotic aorta. Bilateral interstitial and hazy airspace opacities, which may represent pulmonary edema or pneumonia in the appropriate clinical setting. No large effusion or pneumothorax. > Interpreting Provider: Taisha Seymour MD on 11/02/2024 12:55 PM XR Abdomen Kub Portable Result Date: 11/02/2024 IMPRESSION: Mild mildly dilated small bowel loops measuring up to 4 cm. Gas is identified in the distal colon and rectum. Findings may represent ileus or low- grade obstruction. Mild to moderate left predominant colonic stool volume. Mild left basilar atelectasis/airspace disease. Cardiomegaly. >Interpreting Provider: Taisha Seymour MD on 11/02/2024 12:54 PM Relevant labs and imaging data reviewed on [facility]. Assessment and Plan Hepatic trauma, initial encounter (POA: Unknown) KASEY (acute kidney injury) (POA: Unknown) Other specified anemias (POA: Unknown) Urinary retention (POA: Unknown) Heart failure with reduced ejection fraction (HCC) (POA: Unknown) Cardiogenic shock (HCC) (POA: Unknown) Elevated troponin (POA: Unknown) Transaminitis (POA: Yes) Thrombocytopenia (POA: Unknown) Assessment & Plan Cardiogenic shock (HCC) Elevated troponin Heart failure with reduced ejection fraction (HCC) Hydralazine 10mg TID dc Isosorbide dinitrate 10mg TID dc Entresto 24-26 BID - gave 1 dose 11/06, has not received yet today Jardiance 10 mg Qdaily - not started yet, waiting on CTS recs Metoprolol succinate 25 mg qdaily started yesterday Spironolactone held - will consider starting tomorrow Lasix resumed Telemetry F/u CTS recommendations s/p cardiac cath Hepatic trauma, initial encounter Transaminitis Ddx: shock liver vs acetaminophen toxicity vs [...] antibodies, ANCA panel, anti-LKM1 antibodies, IgG, serum [id number] - ceruloplasmin normal - F-Actin antibody IgG normal - mitochondrial M2 antibody normal - hepatitis panel normal - Dc all OTC supplements - Daily CBC, CMP, INR KASEY (acute kidney injury) Cardiorenal vs hepatorenal syndrome 10/31 US with solid hypoechoic left renal mass and subcentimeter L renal cyst Per rads: CT urogram or abdominal MRI w contrast (will be ordered outpatient) Dc fluid restriction Start cardiac diet Restart lasix Other specified anemias Thrombocytopenia Iron panel consistent with chronic disease - HgB stable, continue to monitor - monitor platelet counts closely. Stable today. Urinary retention Patient voiding without catheter - provided bedside urinal - can restart external catheter if needed - tamsulosin 0.4mg daily Diet: DIET CARDIAC DVT Prophylaxis: Heparin (DVT Prophylaxis Dose) Code Status: LIMITED RESUSCITATION-PRIOR AND AFTER ARREST [place] Candidate?: No Electronically Signed By: Jared Vasquez MD 11/07/2024 7:23 AM The above assessment and plan will be discussed with attending physician. This note is not final until attested by the attending physician. * Jared Vasquez MD - 11/06/2024 3:27 PM CDT Discussed code status with patient and his 2 sons after heart cath. In the event of a code, he doesnot want chest compressions. He would be okay with intubation for a set period of time (the patientstates 12-24 hours) but does not want to be mechanically ventilated indefinitely. He is ok with pressors, other medications, cardioversion, defibrillation. Code status changed in chart per pt wishes. Jared Vasquez MD Cosigned by Deann Stephens MD at 11/06/2024 4:28 PM CDT * Jared Vasquez MD - 11/06/2024 3:13 PM CDT [facility] Internal [facility] Progress Note Name: Gabino Ocampo Room/Bed: 737/01 : 1950 74 year old PCP: No primary care provider on file. Admit Date/Time: 11/01/2024 9:26 PM LOS: 5 Subjective Interval update: Had R/L heart cath this afternoon. Patient hadn't had a bowel movement as of this AM. Discussed code status again after his heart cath. (See separate note). Had a bowel movement around 3pm. Hospital course: Gabino Ocampo is 74 year old male w/ PMH of HFrEF (EF of 25%) who presented from OSH for acute liver injury c/b KASEY and concern for cardiogenic shock. Patient initially presented on 10/23 for SOB but left AMA. He returned on 10/30/2024 and was found to have AST >7000, ALT> 5800. Patient denies ETOH use. Troponins were also elevated. Prior to transfer patient was started on NAC for liver injury and dobutamine for concern for cardiogenic shock in setting of reduced EF of 25%. Pt states he hasn't seen a doctor in years but met a PCP last week who started him on torsemide and metoprolol.He states he does not take any medications, but does take a number of supplements in which he is unable to recall all their names. He denies taking tylenol and states he is not a drinker. 10/31 OSH US Kidney/Bladder shows solid hypoechoic left renal mass and subcentimeter left renal cyst 11/01 arrival to [facility], patient Aox3 (person, place and time) and has acutely diffuse abdominal pain.He reports SOB and has been having congestion and cough for the past two weeks. Patient denies having knowledge of any liver disease or illness in the past. He further states that he has not had a BMin 1-2 weeks, and hasn't eaten in 2 days. He denies nausea and vomiting. 11/02 Pt had rectal exam without stool impaction due to empty rectal vault. Enemas were deployed and pt had 2 Bms with relief of some pain. - 11/02 US with doppler shows no hepatic lesions or intrahepatic biliary dilation with patent hepatic vasculature. GB sludge. Incidental right pleural effusion. Trace fluid in the Angulo's pouch - 11/02 KUB shows mildly dilated small bowel loops with gas in the distal colon and rectum with mildto moderate L predominant colonic stool volume. Findings may represent ileus or low-grade obstruction 11/02 TTE shows EF of 26% with a moderately dilated LV, globally hypokinetic LV wall motion, and severely reduced systolic function. Dilated RV with normal systolic function. 11/06: underwent R/L heart cath. Revealed atherosclerotic vascular disease Objective Temp: [97.2 ??F (36.2 ??C)-98.7 ??F (37.1 ??C)] 98.7 ??F (37.1 ??C) Pulse: [86-100] 94 Resp: [13-18] 18 BP: (109-126)/(72-85) 126/83 Weight change: Intake/Output Summary (Last 24 hours) at 11/06/2024 1513 Last data filed at 11/06/2024 1023 Gross per 24 hour Intake 850 ml Output 1500 ml Net -650 ml Physical Exam: Physical Exam Constitutional: General: He is not in acute distress. Appearance: Normal appearance. HENT: Head: Normocephalic. Eyes: Extraocular Movements: Extraocular movements intact. Pupils: Pupils are equal, round, and reactive to light. Cardiovascular: Rate and Rhythm: Normal rate and regular rhythm. Heart sounds: No murmur heard. Comments: Bilateral DP pulses difficult to palpate, normal radial pulses No JVD No hepatojugular reflux Pulmonary: Effort: Pulmonary effort is normal. No respiratory distress. Breath sounds: Normal breath sounds. Abdominal: General: Bowel sounds are normal. There is distension. Palpations: There is no mass. Tenderness: There is abdominal tenderness. There is no guarding. Musculoskeletal: Right lower leg: Edema present. Left lower leg: Edema present. Comments: 1+ pitting edema bilateral Neurological: General: No focal deficit present. Mental Status: He is alert and oriented to person, place, and time. Mental status is at baseline. Psychiatric: Mood and Affect: Mood normal. Went through patient's supplements at bedside. 1- mens prostate formula 2- fiber capsules 3- arriaza's yeast 4- Ca, Mg, Zinc 5- vision formula 6- triple omega 7- alfalfa 8- hair, skin, nail supplement 9- complete multivitamin 10- Vitamin B complex 11- iron 12- aller-zyr (zyrtec) 13- ginko biloba 14- saw palmetto 15- cinnamon 16- apple cider vinegar 17- resveratrol 18- aspirin 19- ashwaghanda Laboratory Data Recent Labs Component Name 11/06/24 0341 11/05/24 0307 11/04/24 0612 WBC 12.1* 10.5 9.4 HGB 11.7* 11.3* 12.7* HCT 34.3* 32.2* 35.4* PLTCOUNT 91* 106* 110* MCV 85.5 83.2 82.7 Recent Labs Component Name 11/06/2434011/05/24 0307 11/04/24 0612 PT 15.8* 17.7* 18.2* INR 1.3 1.5 1.6 Recent Labs Component Name 11/06/2434011/05/24 2330 11/05/24 0307 NA 138 137 138 POTASSIUM 3.5 4.0 2.7* CL 100 100 99 CO2 29 29 29 BUN 52* 53* 70* CREATININE 1.16 1.17* 1.46* Recent Labs Component Name 11/06/2434011/05/24232911/05/24 0307 CALCIUM 7.7* 7.6* 7.5* PHOS 2.3* 2.4* 2.8 Recent Labs Component Name 11/06/2434011/05/24232911/05/24 0307 11/04/24 0612 PROT 5.3* - 5.0* 5.4* ALB 2.6* 2.6* 2.6* 2.6* 2.6* ALKPHOS 121 - 119 118 AST 109* - 171* 301* ALT 722* - 1,070* 1,580* TBILI 2.3* - 2.5* 2.7* No results for input(s): CKTOTAL, CKMBCK2, TROPONINI in the last 11806 hours. No results for input(s): [facility] in the last 85652 hours. Microbiology Results (Displays last 21 days for this encounter ONLY) Procedure Component Value - Date/Time CULTURE BLOOD [[id number]] (Normal) Collected: 11/02/241758 Lab Status: Preliminary result Specimen: Blood from Peripheral 1 Updated: 11/04/242329 Culture No growth CULTURE BLOOD [[id number]] (Normal) Collected: 11/02/241758 Lab Status: Preliminary result Specimen: Blood from Peripheral 2 Updated: 11/04/242329 Culture No growth RESPIRATORY PANEL WITH SARS-COV-2 BY PCR ([facility]) [[id number]] (Normal) Collected: 11/02/24 0818 Lab Status: Final result Specimen: Microbiology from Nasopharyngeal Updated: 11/02/24 1624 Adenovirus PCR Not detected Coronavirus 229E PCR Not detected Coronavirus HKU1 PCR Not detected Coronavirus NL63 PCR Not detected Coronavirus OC43 PCR Not detected COVID-19 PCR Not detected Human Metapneumovirus PCR Not detected Human Rhinovirus/Enterovirus PCR Not detected Influenza A PCR Not detected Influenza B PCR Not detected Parainfluenza Virus 1 PCR Not detected Parainfluenza Virus 2 PCR Not detected Parainfluenza Virus 3 PCR Not detected Parainfluenza Virus 4 PCR Not detected Respiratory Syncytial Virus PCR Not detected Bordetella parapertussis PCR Not detected Bordetella pertussis PCR Not detected Chlamydia pneumoniae PCR Not detected Mycoplasma pneumoniae PCR Not detected Narrative: This nucleic amplification assay has received FDA authorization via the [employer] Pathway. Imaging US Abdomen Ltd W Comp Doppler Result Date: 11/02/2024 IMPRESSION: 1. No discrete hepatic lesion or intrahepatic biliary dilation. Patent hepatic vasculature. 2. Sludge in the gallbladder. 3. Incidental right pleural effusion 4. Trace fluid in the Angulo's pouch Report dictated by Zachary Rushing MD (Animal Humane Agent Supervisor) IZan MD have personally reviewed and interpreted this examination/study. > Interpreting Provider: Zan Cortes MD on 11/02/2024 1:40 PM XR Chest 1Vw Portable Result Date: 11/02/2024 IMPRESSION: Cardiomegaly. Atherosclerotic aorta. Bilateral interstitial and hazy airspace opacities, which may represent pulmonary edema or pneumonia in the appropriate clinical setting. No large effusion or pneumothorax. > Interpreting Provider: Taisha Seymour MD on 11/02/2024 12:55 PM XR Abdomen Kub Portable Result Date: 11/02/2024 IMPRESSION: Mild mildly dilated small bowel loops measuring up to 4 cm. Gas is identified in the distal colon and rectum. Findings may represent ileus or low- grade obstruction. Mild to moderate left predominant colonic stool volume. Mild left basilar atelectasis/airspace disease. Cardiomegaly. >Interpreting Provider: Taisha Seymour MD on 11/02/2024 12:54 PM Relevant labs and imaging data reviewed on [facility]. Assessment and Plan Hepatic trauma, initial encounter (POA: Unknown) KASEY (acute kidney injury) (POA: Unknown) Other specified anemias (POA: Unknown) Urinary retention (POA: Unknown) Heart failure with reduced ejection fraction (HCC) (POA: Unknown) Cardiogenic shock (HCC) (POA: Unknown) Elevated troponin (POA: Unknown) Transaminitis (POA: Yes) Thrombocytopenia (POA: Unknown) Assessment & Plan Cardiogenic shock (HCC) Elevated troponin Heart failure with reduced ejection fraction (HCC) Hydralazine 10mg TID Isosorbide dinitrate 10mg TID Lasix resumed Telemetry F/u CTS recommendations s/p cardiac cath Hepatic trauma, initial encounter Transaminitis Ddx: shock liver vs acetaminophen toxicity vs [...] antibodies, ANCA panel, anti-LKM1 antibodies, IgG, ceruloplasmin, [id number] - F-Actin antibody IgG normal - mitochondrial M2 antibody normal - hepatitis panel normal - Dc all OTC supplements - Dc lactulose - Daily CBC, CMP, INR KASEY (acute kidney injury) Cardiorenal vs hepatorenal syndrome 10/31 US with solid hypoechoic left renal mass and subcentimeter L renal cyst Per rads: CT urogram or abdominal MRI w contrast (will be ordered outpatient) Dc fluid restriction Start cardiac diet Restart lasix Other specified anemias Thrombocytopenia Iron panel consistent with chronic disease - HgB stable, continue to monitor - monitor platelet counts closely Urinary retention Patient wanting to try voiding without catheter - provided bedside urinal - can restart external catheter if needed - tamsulosin 0.4mg daily Diet: DIET CARDIAC DVT Prophylaxis: Heparin (DVT Prophylaxis Dose) Code Status: Full Code Bord[place] Candidate?: No Electronically Signed By: Jared Vasquez MD 11/06/2024 3:13 PM The above assessment and plan will be discussed with attending physician. This note is not final until attested by the attending physician. Cosigned by Deann Stephens MD at 11/06/2024 4:29 PM CDT Associated attestation - Deann Stephens MD - 11/06/2024 4:29 PM CDT I have seen and examined the patient with the resident and I agree with the findings and plan of care as documented by the resident. In addition: Hepatic trauma, initial encounter (POA: Unknown) KASEY (acute kidney injury) (POA: Unknown) Other specified anemias (POA: Unknown) Urinary retention (POA: Unknown) Heart failure with reduced ejection fraction (HCC) (POA: Unknown) Cardiogenic shock (HCC) (POA: Unknown) Elevated troponin (POA: Unknown) Transaminitis (POA: Yes) Thrombocytopenia (POA: Unknown) Constipation BPH Anemia Hypokalemia Left renal mass - needs outpatient CT urogram vs MRI abd for further w/u R&LHC today, noted to have multi-vessel disease, CTS consulted Will need to review supplements in detail to identify if any of them could have caused the ALI Case d/w son at bedside Date of Service: 11/06/2024 Deann Stephens MD READMISSION RISK SCORE is 14 at 4:28 PM 11/06/2024. * Analitis, Evangelia - 11/06/2024 1:41 PM CDT [facility] MEDIC[facility] PROGRESS NOTE Patient: Gabino Ocampo Sex: male Age: [age] year old Date of : 1950 Date of Admission: 11/01/2024 Date: 11/06/2024 LOS: 5 SUBJECTIVE Interval History: No acute events overnight. Conversation with patient was limited this morning, as he went to use the restroom shortly after I entered room and then was taken for R/L heart cath. Mr. Ocampo continues to complain of constipation and says that he did not have a bowel movement yesterday, despite receiving suppository. Supplements: 1- men's prostate formula 2- fiber capsules 3- arriaza's yeast 4- Ca, Mg, Zinc 5- vision formula 6- triple omega 7- alfalfa 8- hair, skin, nail supplement 9- complete multivitamin 10- Vitamin B complex 11- iron 12- aller-zyr (zyrtec) 13- ginko biloba 14- saw palmetto 15- cinnamon 16- apple cider vinegar 17- resveratrol 18- aspirin 19- ashwaghanda OBJECTIVE Vital Signs: Vitals: 11/06/24 0756 11/06/24 1015 11/06/24 1030 11/06/24 1127 BP: 116/83 126/84 126/83 Pulse: 100 97 94 Resp: 15 13 18 Temp: 97.5 ??F (36.4 ??C) 98.7 ??F (37.1 ??C) SpO2: 98% 95% 94% 97% Weight: Height: Temp Min: 97.2 ??F (36.2 ??C) Max: 99.1 ??F (37.3 ??C), Pulse Min: 75 Max: 142, Resp Min: 10 Max: 45, BP Min: 91/71 Max: 141/87 Intake & Output: In: 2350 [P.O.:2350] Out: 2049 [Urine:2049] Physical Exam: Deferred today, as patient was going for heart cath when I entered room. Current Medications: Scheduled: Medications[1] Continuous: Medications[2] PRN: Medications[3] Lab Results: Recent Labs Component Name 11/06/24 0341 11/05/24 0307 11/04/24 0612 WBC 12.1* 10.5 9.4 HGB 11.7* 11.3* 12.7* HCT 34.3* 32.2* 35.4* MCV 85.5 83.2 82.7 Recent Labs Component Name 11/06/24 0341 11/05/24 2330 11/05/24 0307 11/04/24 1303 11/04/24 0612 NA 138 137 138 - 139 139 POTASSIUM 3.5 4.0 2.7* - 2.7* 2.7* CL 100 100 99 - 100 100 CO2 29 29 29 - 25 25 BUN 52* 53* 70* - 74* 74* CREATININE 1.16 1.17* 1.46* - 1.57* 1.57* GLUCOSE 127* 147* 122* - 131* 131* CALCIUM 7.7* 7.6* 7.5* - 7.3* 7.3* MAGNESIUM 1.6 - 1.6 - 1.8 PHOS 2.3* 2.4* 2.8 - 2.4* - = values in this interval not displayed. Recent Labs Component Name 11/06/24 0341 11/05/24 2330 11/05/24 0307 11/04/24 0612 PROT 5.3* - 5.0* 5.4* ALB 2.6* 2.6* 2.6* 2.6* 2.6* TBILI 2.3* - 2.5* 2.7* AST 109* - 171* 301* ALT 722* - 1,070* 1,580* ALKPHOS 121 - 119 118 Microbiology: 11/02 blood cultures: no growth Respiratory Pathogen Panel: negative Imaging & Studies: L Heart Catheterization: Multi-vessel coronary artery disease. 60% proximal/mid LAD tubular stenosis, ischemic by iFR 0.72. 50% distal LM stenosis. 1st RPL lesion is 100% stenosed . 100% chronic total occlusion of RPDA and RPLV, distally filled by [id number] collaterals. Moderate LCX stenosis. Low/normal biventricular filling pressures. No pulmonary hypertension. Preserved cardiac output and cardiac index. R Heart Catheterization: Saturations (%) PA: 66% AO: 91% Pressures (mm Hg) RA : 7/2/2 RV : 34/2/5 PA : 34/15 Mean PA : 22 PCWP: 12 Ao : 121/70/90 Cardiac Output: 4.9 L/min Cardiac Index: 2.7 L/min/m2 Pulmonary Vascular Resistance: 4 Wood units Systemic Vascular Resistance: 1436 Dynes/sec/cm5 Cardiac Power Output: 0.95 Kenny 11/02 TTE: -Left ventricular systolic function is severely reduced with an estimated ejection fraction of 26 % by biplane method of disks. The left ventricle is moderately dilated. The left ventricular mass is mildly increased with eccentric hypertrophy. Left ventricular segmental wall motion is globally hypokinetic. The left ventricular diastolic function is indeterminate. -The right ventricle is dilated. Right ventricular systolic function is normal. US Abdomen w/ Doppler (11/02) -No discrete hepatic lesion or intrahepatic biliary dilation. Patent hepatic vasculature. -Sludge in the gallbladder. -Right pleural effusion XR Chest 1Vw Portable (11/02) -Cardiomegaly. -Atherosclerotic aorta. -Bilateral interstitial and hazy airspace opacities, which may represent pulmonary edema or pneumonia in the appropriate clinical setting. No large effusion or pneumothorax. XR Abdomen Kub Portable (11/02) -Mild mildly dilated small bowel loops measuring up to 4 cm. -Gas is identified in the distal colon and rectum. Mild to moderate left predominant colonic stool volume. -Findings may represent ileus or low-grade obstruction. -Mild left basilar atelectasis/airspace disease. CT Head Wo Contrast (11/01) -No acute intracranial process. -Volume loss and small vessel disease. XR Chest 1Vw (11/01) -Bilateral pulmonary nodules are not clearly changed -Cardiomegaly and pulmonary vascular congestion -Tortuous calcified aortic arch. US Abdomen Limited (10/31) -Gallbladder sludge without other evidence of acute cholecystitis. US Kidneys W Bladder (10/31) 1. Solid hypoechoic left renal mass. Consider further evaluation with either a contrast CT urogram or abdominal MRI. 2. Subcentimeter left renal cyst. ASSESSMENT & PLAN Gabino Ocampo is a 74 year old with a PMH significant for HTN and HLD who presents with acute liver injury, KASEY, and resolving cardiogenic shock in the setting of newly diagnosed HFrEF (25%). Transferred to [facility] for liver team. Cardiogenic Shock HFrEF (25-26%) Ischemic Cardiomyopathy -Troponin 169 -> 137 -> 113, BNP 847 -Pt denies any known history of HF. -Pt noted to have cardiogenic shock at OSH and started on dobutamine. Discontinued 11/04. -11/01 CXR showing pulmonary vascular congestion, consistent with left-sided HF. -11/02 TTE: -LVEF 26% -LV moderately dilated with eccentric hypertrophy -global hypokinesis of LV segmental wall -RV dilated with normal systolic function - Cardiogenic shock on admission likely 2/2 HFrEF - R and L heart cath 11/06 showed multivessel coronary artery disease and ischemic cardiomyopathy. - HFrEF 2/2 ischemic cardiomyopathy, based on cath findings Plan: -Per Cards: - Consult CTS for possible coronary bypass grafting. - Start high-dose statin + aspiring 81 mg daily indefinitely. - Start GDMT. - metoprolol succinate 25 mg - Entresto 24-26 mg bid - Continue hydralazine/isosorbide dinitrate. - Continue Lasix 40 mg oral daily. - Continue to defer GDMT in the setting of fluctuating low BPs and KASEY. - Telemetry Hypokalemia Hypophosphatemia - Hypokalemia resolved after Kcl administration yesterday (2.7 -> 3.5) - New hypophosphatemia today (2.8 -> 2.3) Plan: - Continue to monitor electrolytes, especially while on Lasix. - Replete electrolytes prn. Phos-NaK powder TID ordered. Acute Liver Injury Transaminitis -On presentation to OSH, AST > 7000, ALT > 5800 -ALT and AST continue to improve: ALT 722 (down from 1070) and AST 109 (down from 171) today -Pt denies use of alcohol or Tylenol. -Patient was given N-acetylcysteine at OSH for c/f acetaminophen toxicity, which was discontinued 11/04. -Negative hepatitis panel -Acetaminophen level wnl -Negative anti-mitochondrial antibody (making PBC unlikely), negative anti- smooth muscle antibody (making autoimmune hepatitis less likely) -Normal ceruloplasmism level, excluding Enzo's disease -HIV panel nonreactive Ddx: ischemic hepatitis vs. autoimmune vs. alcoholic vs. drug-induced - Ischemic hepatitis most likely, 2/2 to patient's cardiogenic shock and HF. - However, per GI, in the case of shock liver, typically see quicker/more significant improvement in ALT and AST when BP normalizes. - Autoimmune hepatitis still a consideration, especially given thrombocytopenia, with workup pending. - May be 2/2 supplement use, particularly Ashwagandha, unlikely. This would typically present with a cholestatic pattern of liver injury, whereas patient's injury is hepatocellular. Plan: - MEREDITH, ANCA, and anti-LKM1 antibodies pending as further workup to assess for autoimmune hepatitis - Serum A1AT pending, to assess for A1AT deficiency - Discontinue all supplements. Thrombocytopenia - Platelets continue downtrending (124 on admission >>> 106 --> 91) Ddx: low thrombopoietin vs. Autoimmune hepatitis vs. Heparin-induced thrombocytopenia - Thrombocytopenia 2/2 decreased thrombopoietin production in the setting of severe liver injury ismost likely, given the patient's extremely elevated transaminases on admission. - Autoimmune hepatitis still a consideration, which could cause thrombocytopenia via immune-mediated platelet destruction. - HIT is possible, as patient has been on prophylactic heparin, but less likely. In HIT, would typically expect to see a decline in platelets within 5-10 days of starting heparin, and pt start on 11/02. Must continue to consider. - MD Calc Score: 1, low probability of HIT (< 5%) Dyspnea Leukocytosis - Satting well on room air - Afebrile - New mild elevation in white count after previous resolution (14 -> 12 -> 10.5 -> now 12.1, 87% neutrophils) - Low concern for hospital-acquired pneumonia at this time, but continue to consider, especially ifpt becomes febrile and/or white count continues to rise. - Dyspnea likely 2/2 HFrEF, given pulmonary congestion noted on imaging Plan: - Flonase prn - Continue Lasix KASEY L renal mass - Creatinine continues to improve (3.85 -> 1.46 -> 1.16) - baseline unknown - likely cardiorenal KASEY - Solid hypoechoic left renal mass seen on US, concerning for renal cell carcinoma or other renal tumor Plan: - Per Rads recommendation, outpatient CT urogram or abdominal MRI with contrast to better characterize renal mass. Constipation -Had not had a bowel movement for 2 weeks prior to admission -Imaging concerning for ileus vs. Low-grade bowel obstruction - Pt still complaining of constipation, no BM yesterday Plan: - Dulcolax and Miralax - Protonix Anemia - Hb stable (11.7 from 11.3) - Labs consistent with anemia of chronic disease Plan: -Continue to monitor BPH Urinary Retention - Came from OSH with colin placed for urinary retention - Pt has been voiding spontaneously, with adequate urine output (1.13 mL/kg/hr) Plan: - Continue Tamsulosin 0.4 mg Code: no compressions, no intubation Diet: cardiac Electrolytes: Replete PRN PPx: heparin Access: PIV The above assessment and plan will be discussed with the attending. This note is not final until attested by attending physician. Alicja Knox Medical Student MS3 [facility] 11/06/2024 1:42 PM [1] 0.9% NaCl 3 mL Intracatheter q8h bisacodyl 10 mg Rectal QDAY furosemide 40 mg Intravenous BID heparin 5,000 Units Subcutaneous q8h hydrALAZINE 10 mg Oral TID isosorbide dinitrate 10 mg Oral TID pantoprazole EC 40 mg Oral QDAY polyethylene glycol 3350 17 g Oral BID potassium - sodium phosphates 1 packet Oral TID WC tamsulosin 0.4 mg Oral QDAY [2] [3] SALINE LOCK, INSERT AND MAINTAIN AND 0.9% NaCl AND 0.9% NaCl fluticasone propionate Cosigned by Deann Stephens MD at 11/06/2024 4:28 PM CDT * Anneliese Yoo OT - 11/06/2024 10:22 AM CDT [facility] Department of Physical Medicine & Rehabilitation Progress Note Patient: Gabino Ocampo [facility] Record Number: [id number] Date of : 1950 Age: [age] year old 11/06/24 1000 Missed Visit Missed Visit Procedure Off Floor; 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 * Mervat Ortiz PT - 11/06/2024 8:35 AM CDT [facility] Department of Physical Medicine & Rehabilitation Progress Note Patient: Gabino Ocampo [facility] Record Number: [id number] Date of : 1950 Age: [age] year old 11/06/24 0835 Missed Visit Missed Visit Procedure Off Floor (labor arbitrator hearing office) * Jb Balbuena Viry - 11/06/2024 7:52 AM CDT [facility] Inpatient Cardiology Consultation Progress Note Patient: Gabino Ocampo Date of Admission: 11/01/2024 LOS: 5 Interval History Patient was not seen this morning as he was getting right and left heart cath. MAP 97, net + 400cc. HPI Gabino Ocampo is a 74 year old male with PMH of HFrEF (EF of 25%) who presented from OSH for acute liver injury c/b KASEY and concern for cardiogenic shock. Patient initially presented on 10/23 for SOB but left AMA. He returned on 10/30/2024 and was found to have AST >7000, ALT> 5800. Patient denies ETOH use. Troponins were also elevated. Patient transferred to [facility] for liver team. Prior to transfer patient was started on NAC for liver injury and dobutamine for concern for cardiogenic shock in setting of reduced EF of 25%. Upon arrival, patient Aox3 (person, place and time) and denies any acute pain. He does report some SOB which upon further evaluation is described as nasal congestion. Patient denies having knowledge of any liver or heart disease or illness in the past. Cardiology consulted 11/02 after concerns for cardiogenic shock. Per chart review patient has reported EF of 25% from OSH. His son states that patient has been feeling short of breath for 1.5 weeks, however the somnolence is new this admission. BNP 847, troponin 113, 137, 169. Lactate 2.8, 2.8. Signs of liver injury and KASEY with LFTs in the 3000s and Cr 3.85. Objective BP 126/83 (BP Location: Left arm, Patient Position: Lying) Pulse 94 Temp 98.7 ??F (37.1 ??C) (Oral) Resp 18 Ht 1.676 m (5' 6) Wt 68.4 kg (150 lb 14.4 oz) SpO2 97% Physical exam based on Interventional Cards note, General: Well-developed in NAD. HEENT: NC/AT. PERRL. Neck: Supple. No tenderness, enlargement, JVD elevated (~14). Lungs: Bibasilar rales. No respiratory distress. Heart: RRR. Abdomen: Soft. NT/ND. Ext/MS: Trace KURT, no cyanosis Neuro: A&O x3. No focal deficits noted. Skin: No obvious rashes or lesions noted. Pulses: Radial : 1+ bilateral Femoral artery: 2+ bilateral All labs, imaging, and diagnostics reviewed. Assessment and Plan # Cardiogenic shock # Acute liver injury # KASEY # Newly diagnosed HFrEF, acute on chronic Cardiogenic shock likely related to shock liver vs priamry liver pathology causing acute liver injury. The patient's clinical status is improving. Consider starting GDMT. Recommendations: - Start today: Metoprolol Succinate 25 qd, Entresto 24-26 bid, ASA 81 qd - DC isosorbide and hydralazine - Tomorrow start Lasix 40 qd po, jardiance 10 qd, and spirnolactone 25 qd - At DC, start rosuvastatin 20 qd based on improving LFTs - Consult cardiothoracic for CABG - Please replace K aggressively - Keep K>4, Phos > 3, Mg>2 - Continue telemetry We will follow. Staffed with Dr. Rubio. Please see attending attestation for any changes to recommendations. [facility] Consult 11/06/2024 2:33 PM Cosigned by Butch Rubio MD at 11/08/2024 3:07 PM CDT Associated attestation - Butch Rubio MD - 11/08/2024 3:07 PM CDT I have verified the documentation of the Medical student, including all history, exam, and medical decision-making details. I have personally performed a physical exam and have personally reviewed the data to support my medical decision-making as outlined in the student's note, and I arrive independently at the same conclusion. Date of Service is the date mentioned in the student's note. Vu Rubio MD MPH * Joann Sánchez RN - 11/06/2024 7:09 AM CDT Patient to labor arbitrator hearing office per bed. Joann Sánchez RN * Jared Vasquez MD - 11/06/2024 7:05 AM CDT Planned for R/L heart cath today, discussed with patient that he needs to be full code for the procedure. Also discussed that he can go back to his prior code status after the procedure if that is still his wish. He was amenable to changing code status for this procedure, will discuss code status again post-procedure. Jared Vasquez MD Cosigned by Deann Stephens MD at 11/06/2024 8:02 AM CDT * Joann Sánchez RN - 11/05/2024 7:20 PM CDT Problem: Skin/Tissue Integrity - Adult Goal: Skin integrity remains intact Description: INTERVENTIONS: Outcome: Progressing Goal: Incisions, wounds, or drain sites healing without S/S of infection Description: INFECTIONS: Outcome: Progressing Goal: Oral mucous membranes remain intact Description: INTERVENTIONS: Outcome: Progressing Problem: Fall Risk Goal: Fall risk and fall related injury risk are minimized (interventions related to the fall risk can be found in the flowsheet documentation) Outcome: Progressing Problem: Pain/Discomfort Goal: Patient exhibits reduced pain/discomfort as evidenced by pain scores Outcome: Progressing Goal: Patient uses pharmacological and non-pharmacological pain management strategies. Outcome: Progressing Goal: Patient verbalizes acceptable level of pain relief and ability to engage in desired activity. Outcome: Progressing Patient verbalized understanding of care plan consisting of pain, skin care and fall precautions. * Meaghan Leonardo COTA - 11/05/2024 2:10 PM CDT [facility] Department of Physical Medicine & Rehabilitation Progress Note Patient: Gabino Ocampo [facility] Record Number: [id number] Date of : 1950 Age: [age] year old 11/05/24 1400 Missed Visit Missed Visit Other (Comment) Pt attempted, pt with PT addressing soft BP readings in chair. RN already notified and aware. Will re attempt pt later time. * Kaykay David PT - 11/05/2024 2:07 PM CDT [facility] Physical Medicine and Rehabilitation Physical Therapy Progress Note Patient: Gabino Ocampo [facility] Record Number: [id number] Date of : 1950 Age: [age] year old PPE worn by staff: gloves;mask - procedural Recommendations: Discharge PT Discharge Recommendations: Other: (Anticipate home with HH PT once mobility progresses) Patient currently using Wheeled Walker and has equipment at home. No equipment needs if d/c home. SUBJECTIVE: Subjective: I can't get comfortable PATIENT GOALS / WHAT MATTERS MOST TO THE PATIENT: Pain Assessment: Pain Assessment Pain Scale/Observation: No/denies pain PRECAUTIONS: Weight Bearing Status: (No restrictions) Activity Level: Activity as Tolerated OBJECTIVE: At start of therapy session, patient found in patient bedside chair and with chair alarm on General Appearance: adult male, in chair, NAD Vitals: (*Assess the 3 levels of oxygen saturations both for room air and 02 unless rest on room air is 88% or less). Rest BP: 83/56 (in chair with LEs elevated) HR: Sp02 Sp02 Room Air L O2 Ex/Gait/Activity Without 02 BP: 88/74 (with LEs in dep position) 88/58 (69) - after LE exercise 97/69 (standing) HR: 111 Sp02 Room Air Ex/Gait/Activity With 02 BP: HR: Sp02 L O2 Post Activity BP: 104/69 (76) HR: 107 Sp02 Sp02 Room Air L O2 Observations: pt has no c/o dizziness or shortness of breath with activity; RN informed of low BP at start of session Mental Status/Cognition: Level of Consciousness-Adult: (pt lethargic during session, but responds to voice and questions throughout) Cognition: (A&O x4) Attention Span: Appears intact Following Commands: Follows one step commands consistently Safety Judgement: Decreased awareness of need for safety Awareness of Errors: Decreased awareness of deficits Mobility: A gait belt and non-slip socks were used for all out of bed activity this date. Bed Mobility: Supine to Sit: (pt up in chair at beginning of session and returns to chair) Transfers: Sit to Stand: Minimal Assistance;Requires Verbal Cues for Safety;Requires Verbal Cues for Technique Stand to Sit: Minimal Assistance;Requires Verbal Cues for Safety;Requires Verbal Cues for Technique Transfer Device: Gait belt Gait: Weight Bearing Status: (No restrictions) Distance Ambulated (ft): 30 FEET (deferred further distance this date) Ambulation: Assistive Device: Gait Belt;Walker-2 Wheeled Ambulation: Level of Assistance: Minimum Assistance Ambulation: Gait Deviations: Marilyn - Decreased Balance: Balance Scales/Tests Used: Sitting: Static/Dynamic;Standing: Static/Dynamic Sitting - Static: Good Sitting - Dynamic: Good - Standing - Static: Fair +;With Both Upper Extremity's Support Standing - Dynamic: Fair;With Both Upper Extremity's Support ACTIVITY TOLERANCE: Activity Tolerance: Complains of fatigue after standing activity/gait TREATMENT/INTERVENTIONS: bed mobility training, transfer training, balance activities, and monitoring of vitals AM-PAC 6 Clicks Mobility Raw Score:: 18 EDUCATION: While performing PT, Patient was instructed in:functional mobility training, safety awareness/fall precautions , home exercise program, use of adaptive equipment, discharge planning, use of call light Presented to patient who demonstrates Fair understanding of instructions given. ASSESSMENT: Patient would benefit from additional Physical Therapy sessions to achieve the following functionalgoals to enhance independence. Short Term Goals: Goal Formation With patient Patient will perform bed mobility with modified independence Patient will transfer sit to/from stand with modified independence and with least restrictive assistive device Patient will transfer bed to/from chair with modified independence and with least restrictive assistive device Patient will ambulate 150 feet with modified independence and with least restrictive assistive device Patient will ascend/descent 2 steps with modified independence and with least restrictive assistivedevice Retirement Goal(s): Patient to be independent with functional mobility and self-care and should be able to safely discharge to prior level of care. INFORMED CONSENT TO TREATMENT: Plan of care including recommended therapy, goals and frequency, discussed with patient who understands and agrees to proceed. Equipment Issued: none Plan: Patient continues to benefit from skilled therapy services., Continue with goals as established. If patient is discharged from the facility, this note serves as a discharge summary if further physical therapy visits did not occur. Refer to filed flowsheet for further details. Following therapy session, patient left in patient bedside chair , with chair alarm on and positioned under patient's buttocks , with call light within reach, with RNBari aware. * Shankar Womack MD - 11/05/2024 12:57 PM CDT [facility] Inpatient Cardiology Consultation Progress Note Patient: Gabino Ocampo Date of Admission: 11/01/2024 LOS: 4 Subjective Patient seen and examined at bedside, sitting comfortably in chair this morning. He reports shortness of breath has improved. He still has severe hypokalemia. Doing well off dobutamine, blood pressures in the 110s over 70s. Doing well off dobutamine, blood pressure in 110s over 70s. HPI Gabino Ocampo is a 74 year old male with PMH of HFrEF (EF of 25%) who presented from OSH for acute liver injury c/b KASEY and concern for cardiogenic shock. Patient initially presented on 10/23 for SOB but left AMA. He returned on 10/30/2024 and was found to have AST >7000, ALT> 5800. Patient denies ETOH use. Troponins were also elevated. Patient transferred to [facility] for liver team. Prior to transfer patient was started on NAC for liver injury and dobutamine for concern for cardiogenic shock in setting of reduced EF of 25%. Upon arrival, patient Aox3 (person, place and time) and denies any acute pain. He does report some SOB which upon further evaluation is described as nasal congestion. Patient denies having knowledge of any liver or heart disease or illness in the past. Cardiology consulted 11/02 after concerns for cardiogenic shock. Per chart review patient has reported EF of 25% from OSH. His son states that patient has been feeling short of breath for 1.5 weeks, however the somnolence is new this admission. BNP 847, troponin 113, 137, 169. Lactate 2.8, 2.8. Signs of liver injury and KASEY with LFTs in the 3000s and Cr 3.85. Objective BP 111/69 (BP Location: Right arm, Patient Position: Sitting) Pulse 98 Temp 98.4 ??F (36.9 ??C)(Oral) Resp 18 Ht 1.676 m (5' 6) Wt 68.4 kg (150 lb 14.4 oz) SpO2 94% General appearance: Alert, oriented, in no distress. Chest: No wheezes or crackles Heart: Regular rate and rhythm. S1, S2 normal. No murmurs, clicks, rubs or gallops. No JVD or carotid bruits. Abdomen: Soft. Bowel sounds normal. Extremities: Brent ankle edema Skin: warm and dry All labs, imaging, and diagnostics reviewed. Assessment and Plan # Cardiogenic shock # Acute liver injury, differentials include shock liver versus primary liver pathology. # KASEY # Newly diagnosed HFrEF, acute on chronic Recommendations: - Continue Lasix to 40 IV twice daily. - Continue isosorbide dinitrate and hydralazine -Please replace K aggressively - Keep K>4, Mg>2 - Continue telemetry - Plan for left and right heart cath tomorrow, please keep n.p.o. at midnight. We will follow. Staffed with Dr. Anderson. Please see attending attestation for any changes to recommendations. Shankar Womack MD search engine marketing strategist [facility] Cosigned by Tracey Anderson MD at 11/05/2024 5:17 PM CDT Associated attestation - Tracey Anderson MD - 11/05/2024 5:17 PM CDT ATTENDING ATTESTATION NOTE I have seen and examined the patient with the resident and I agree with the findings and plan of care as documented by the resident. Interval Hx: improving SOB, abdominal pain. Still without BM HPI: 74 year old male who reports that for a few weeks he had sinus problems, then abodominal pain and then SOB - now with acute HF and shock liver. Patient transferred from OSH when he was started on SILK SCREEN CUTTER due to Echo with reduced EF and shock liverand concern for cardiogenic shock. LFT improving. Cr also improving. Patient takes many OTC supplements. No prior hx of HFrEF until now. No prior hx of liver disease either. ON exam, warm extremities, mild edema bilaterally, elevated JVD, normal heart sounds, no significant murmurs. New onset acute heart failure with reduced EF and volume overload Cardiogenic shock Shock liver KASEY Cr continues to improve Continue hydralazine isordil. Plan for LHC and RHC tomorrow. If Cr continues to improve, then change hydral/isordil to entresto and ultiamtely start adactone and jardiance. Once euvolemic also start beta elizabeth. Continue lasix IV 40 BID Initially there was suspect that shock liver was related to cardiac dysfunction however, presentation was atypical for that. Consider primary liver injury. Prior to SILK SCREEN CUTTER BP was normal (10/31 BPs BP: 125/89 119/83 (!) 130/96) which seems unusual for development of shock liver related to cardiogenic shock. - agree with GI with work for up for other primary cause of liver injury. - patient takes many OTC supplements, not clear if this contributed to any toxicity Rest of plan as per the resident note. Date of Service: 11/05/24 Tracey Anderson MD * Analitis, Evangelia - 11/05/2024 12:25 PM CDT [facility] INTERNAL MEDICINE PROGRESS NOTE Patient: Gabino Ocampo Sex: male Age: [age] year old Date of : 1950 Date of Admission: 11/01/2024 Date: 11/05/2024 LOS: 4 SUBJECTIVE Interval History: No acute events overnight. Mr. Ocampo says that he is doing okay this morning. He denies chest pain, pressure, or palpitations. He is breathing comfortably on room air. He has had several bowel movements in recent days, after previously being constipated for about 2 weeks prior to admission, buthe still notes some abdominal pain and feels he has some remaining stool burden. He is voiding spontaneously without issue, after colin removal yesterday. Clarified some aspects of HPI on exam this morning: Mr. Ocampo has a history of HTN and HLD, andhas never been told that he has heart failure. 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 He has not seen a PCP in over a decade. He was not taking any medications at home, though was taking several supplements, which he has with him in the room. He says that he originally presented to OSH ([facility]) for phlegm and cough, which he had had for several months but worsened in the past couple of weeks. He denies having any chest pain or dyspnea with exertion at home in past months. Supplements: 1- mens prostate formula 2- fiber capsules 3- arriaza's yeast 4- Ca, Mg, Zinc 5- vision formula 6- triple omega 7- alfalfa 8- hair, skin, nail supplement 9- complete multivitamin 10- Vitamin B complex 11- iron 12- aller-zyr (zyrtec) 13- ginko biloba 14- saw palmetto 15- cinnamon 16- apple cider vinegar 17- resveratrol 18- aspirin 19- ashwaghanda OBJECTIVE Vital Signs: Vitals: 11/05/24 0402 11/05/24 0811 11/05/24 0915 11/05/24 1207 BP: 114/96 100/73 111/69 Pulse: 102 101 98 Resp: 20 18 Temp: 98.3 ??F (36.8 ??C) 98.4 ??F (36.9 ??C) SpO2: 96% 94% Weight: 68.4 kg (150 lb 14.4 oz) Height: Temp Min: 97.2 ??F (36.2 ??C) Max: 99.1 ??F (37.3 ??C), Pulse Min: 75 Max: 142, Resp Min: 10 Max: 45, BP Min: 91/71 Max: 141/87 Intake & Output: In: 120 [P.O.:120] Out: 500 [Urine:500] Constitutional: Patient is in no apparent distress. Appears fatigued. HENT: External examination of nares and external pinna reveal no abrasion or discoloration Eyes: Conjunctiva and sclera appear normal with no discoloration or lesions Cardiovascular: Irregular rhythm. Possible S3, difficult to discern given irregular rhythm. No JVD.No hepatojugular reflex. Pulmonary: Effort appears normal. Coarse expiratory breath sounds in bilateral upper lobes. No crackles appreciated. Abdominal: Normoactive bowel sounds x 4. Mild distension. No tenderness. No masses to palpation. Musculoskeletal: No tenderness to palpation in upper and lower extremities. No lesions appreciated Skin: No jaundice or erythema noted Extremities: Mild pitting edema in bilateral legs. Neurological: Patient is oriented to person, place, time, and situation. Pupils appear normal. No focal deficits appreciated. Psychiatric: Flat affect. Current Medications: Scheduled: Medications[1] Continuous: Medications[2] PRN: Medications[3] Lab Results: Recent Labs Component Name 11/05/24 0307 11/04/24 0612 11/03/24 0046 WBC 10.5 9.4 12.0* HGB 11.3* 12.7* 12.3* HCT 32.2* 35.4* 34.8* MCV 83.2 82.7 82.9 Recent Labs Component Name 11/05/24 0307 11/04/24 1303 11/04/24 0612 11/04/24 0031 11/03/24 0800 11/03/24 0046 NA 138 140 139 139 135* - 137 137 POTASSIUM 2.7* 3.6 2.7* 2.7* 2.7* - 3.3* 3.3* CL 99 99 100 100 98 - 96* 96* CO2 29 26 25 25 24 - 24 24 BUN 70* 71* 74* 74* 74* - 90* 90* CREATININE 1.46* 1.55* 1.57* 1.57* 0.91 - 2.63* 2.63* GLUCOSE 122* 200* 131* 131* 207* - 145* 145* CALCIUM 7.5* 7.4* 7.3* 7.3* 6.9* - 6.8* 6.8* MAGNESIUM 1.6 - 1.8 - - 2.4 PHOS 2.8 - 2.4* 2.1* - 2.9 - = values in this interval not displayed. Recent Labs Component Name 11/05/24 0307 11/04/24 0612 11/04/24 0031 11/03/24 0800 11/03/24 0046 PROT 5.0* 5.4* - - 5.5* ALB 2.6* 2.6* 2.6* 2.7* - 2.7* 2.7* TBILI 2.5* 2.7* - - 2.7* AST 171* 301* - - 941* ALT 1,070* 1,580* - - 2,637* ALKPHOS 119 118 - - 121 - = values in this interval not displayed. Microbiology: 11/02 blood cultures: no growth Respiratory Pathogen Panel: negative Imaging & Studies: 11/02 TTE: -Left ventricular systolic function is severely reduced with an estimated ejection fraction of 26 % by biplane method of disks. The left ventricle is moderately dilated. The left ventricular mass is mildly increased with eccentric hypertrophy. Left ventricular segmental wall motion is globally hypokinetic. The left ventricular diastolic function is indeterminate. -The right ventricle is dilated. Right ventricular systolic function is normal. US Abdomen w/ Doppler (11/02) -No discrete hepatic lesion or intrahepatic biliary dilation. Patent hepatic vasculature. -Sludge in the gallbladder. -Right pleural effusion XR Chest 1Vw Portable (11/02) -Cardiomegaly. -Atherosclerotic aorta. -Bilateral interstitial and hazy airspace opacities, which may represent pulmonary edema or pneumonia in the appropriate clinical setting. No large effusion or pneumothorax. XR Abdomen Kub Portable (11/02) -Mild mildly dilated small bowel loops measuring up to 4 cm. -Gas is identified in the distal colon and rectum. Mild to moderate left predominant colonic stool volume. -Findings may represent ileus or low-grade obstruction. -Mild left basilar atelectasis/airspace disease. CT Head Wo Contrast (11/01) -No acute intracranial process. -Volume loss and small vessel disease. XR Chest 1Vw (11/01) -Bilateral pulmonary nodules are not clearly changed -Cardiomegaly and pulmonary vascular congestion -Tortuous calcified aortic arch. US Abdomen Limited (10/31) -Gallbladder sludge without other evidence of acute cholecystitis. US Kidneys W Bladder (10/31) 1. Solid hypoechoic left renal mass. Consider further evaluation with either a contrast CT urogram or abdominal MRI. 2. Subcentimeter left renal cyst. ASSESSMENT & PLAN Gabino Ocampo is a 74 year old with a PMH significant for HTN and HLD who presents with acute liver injury, KASEY, and resolving cardiogenic shock in the setting of newly diagnosed HFrEF (25%). Transferred to [facility] for liver team. Supplements Platelets Outpatient eval of L renal mass Cardiogenic Shock HFrEF (25-26%) Hypokalemia -Troponin 169 -> 137 -> 113, BNP 847 -Most recent K 2.7 (on Lasix) -Pt denies any history of HF. -Pt noted to have cardiogenic shock at OSH and started on dobutamine. -11/01 CXR showing pulmonary vascular congestion, consistent with left-sided HF. -11/02 TTE: -LVEF 26% -LV moderately dilated with eccentric hypertrophy -global hypokinesis of LV segmental wall -RV dilated with normal systolic function -Crackles absent on exam today, after previously being noted, suggesting improving volume status onLasix. -Cardiogenic shock on admission likely 2/2 HFrEF, with other possible etiologies being NC or arrhythmias. -Downtrending troponin makes NC less likely, though patient needs ischemic work up to exclude. Plan: -Per Cards: -Right and left heart cath tomorrow. NPO at midnight. -Stop dobutamine. -Continue hydralazine/isosorbide dinitrate. -Given improving volume status, decrease Lasix from 80 --> 40 mg IV bid (had diuresis holiday 11/04) -Continue to defer GDMT in the setting of fluctuating low BPs and KASEY. -Telemetry - Potassium repletion 40 mEq KCL bid today Acute Liver Injury Transaminitis -On presentation to OSH, AST > 7000, ALT > 5800 -ALT and AST continue to improve: ALT 1,070 and AST 171 today -Pt denies use of alcohol or Tylenol. -Patient was given N-acetylcysteine at OSH for c/f acetaminophen toxicity, which was discontinued 11/04. -Negative hepatitis panel -Acetaminophen level wnl -Negative anti-mitochondrial antibody (making PBC unlikely), negative anti- smooth muscle antibody (making autoimmune hepatitis less likely) Ddx: ischemic hepatitis vs. autoimmune vs. alcoholic vs. drug-induced - Ischemic hepatitis most likely, 2/2 to patient's cardiogenic shock and HF. - However, per GI, in the case of shock liver, typically see quicker/more significant improvement in ALT and AST when BP normalizes. - May be 2/2 supplement use, particularly Ashwagandha - Autoimmune hepatitis still a consideration, with workup pending. Plan: - MEREDITH, ANCA, and anti-LKM1 antibodies pending as further workup to assess for autoimmune hepatitis - HIV panel pending - Plasma ceruloplasmin level pending to assess for Enzo's disease - Serum A1AT pending, to assess for A1AT deficiency - Discontinue all supplements. Dyspnea Leukocytosis - Satting mostly 100% on room air - Afebrile - Leukocytosis resolved (14 -> 12 -> 10.5) - Dyspnea likely 2/2 HFrEF, given pulmonary congestion noted on imaging Plan: - Flonase prn - Continue Lasix - Follow Bcx KASEY L renal mass - Creatinine improving but still elevated (3.85 -> 1.46) - baseline unknown - likely cardiorenal KASEY - Solid hypoechoic left renal mass seen on US, concerning for renal cell carcinoma or other renal tumor Plan: - Radiology recommends CT urogram or abdominal MRI with contrast to better characterize renal mass. Constipation -Had not had a bowel movement for 2 weeks prior to admission -Imaging concerning for ileus vs. Low-grade bowel obstruction Plan: - Dulcolax and Miralax - Protonix Anemia Thrombocytopenia - Hb stable (11.3) - Plt downtrending (124 on admission >>> 106) - Labs consistent with anemia of chronic disease Plan: -Continue to monitor BPH Urinary Retention - Came from OSH with colin placed for urinary retention - Yesterday, colin was removed and pt has been voiding spontaneously Plan: - Tamsulosin 0.4 mg Code: no compressions, no intubation Diet: cardiac Electrolytes: Replete PRN PPx: heparin Access: PIV The above assessment and plan will be discussed with the attending. This note is not final until attested by attending physician. Alicja Knox Medical Student MS3 [facility] 11/05/2024 12:25 PM [1] 0.9% NaCl 3 mL Intracatheter q8h bisacodyl 10 mg Rectal QDAY furosemide 40 mg Intravenous BID heparin 5,000 Units Subcutaneous q8h hydrALAZINE 10 mg Oral TID isosorbide dinitrate 10 mg Oral TID pantoprazole EC 40 mg Oral QDAY polyethylene glycol 3350 17 g Oral BID potassium chloride 40 mEq Oral BID potassium chloride 40 mEq Intravenous Once tamsulosin 0.4 mg Oral QDAY [2] [3] SALINE LOCK, INSERT AND MAINTAIN AND 0.9% NaCl AND 0.9% NaCl fluticasone propionate Cosigned by Deann Stephens MD at 11/05/2024 6:42 PM CDT * Jared Vasquez MD - 11/05/2024 12:07 PM CDT [facility] Internal Medicine Progress Note Name: Gabino Ocampo Room/Bed: [facility]/ : 1950 74 year old PCP: No primary care provider on file. Admit Date/Time: 11/01/2024 9:26 PM LOS: 4 Subjective Interval update: Transferred from MICU to floors. Stopped dobutamine drip today 11/04. Hospital course: Gabino Ocampo is 74 year old male w/ PMH of HFrEF (EF of 25%) who presented from OSH for acute liver injury c/b KASEY and concern for cardiogenic shock. Patient initially presented on 10/23 for SOB but left AMA. He returned on 10/30/2024 and was found to have AST >7000, ALT> 5800. Patient denies ETOH use. Troponins were also elevated. Prior to transfer patient was started on NAC for liver injury and dobutamine for concern for cardiogenic shock in setting of reduced EF of 25%. Pt states he hasn't seen a doctor in years but met a PCP last week who started him on torsemide and metoprolol.He states he does not take any medications, but does take a number of supplements in which he is unable to recall all their names. He denies taking tylenol and states he is not a drinker. 10/31 OSH US Kidney/Bladder shows solid hypoechoic left renal mass and subcentimeter left renal cyst 11/01 arrival to [facility], patient Aox3 (person, place and time) and has acutely diffuse abdominal pain.He reports SOB and has been having congestion and cough for the past two weeks. Patient denies having knowledge of any liver disease or illness in the past. He further states that he has not had a BMin 1-2 weeks, and hasn't eaten in 2 days. He denies nausea and vomiting. 11/02 Pt had rectal exam without stool impaction due to empty rectal vault. Enemas were deployed and pt had 2 Bms with relief of some pain. - 11/02 US with doppler shows no hepatic lesions or intrahepatic biliary dilation with patent hepatic vasculature. GB sludge. Incidental right pleural effusion. Trace fluid in the Angulo's pouch - 11/02 KUB shows mildly dilated small bowel loops with gas in the distal colon and rectum with mildto moderate L predominant colonic stool volume. Findings may represent ileus or low-grade obstruction 11/02 TTE shows EF of 26% with a moderately dilated LV, globally hypokinetic LV wall motion, and severely reduced systolic function. Dilated RV with normal systolic function. Objective Temp: [98 ??F (36.7 ??C)-99.1 ??F (37.3 ??C)] 98.3 ??F (36.8 ??C) Pulse: [90-109] 101 Resp: [18-24] 20 BP: (95-141)/(63-96) 100/73 Weight change: Intake/Output Summary (Last 24 hours) at 11/05/2024 1207 Last data filed at 11/05/2024 0917 Gross per 24 hour Intake 670 ml Output 400 ml Net 270 ml Physical Exam: Physical Exam Constitutional: General: He is not in acute distress. Appearance: Normal appearance. HENT: Head: Normocephalic. Eyes: Extraocular Movements: Extraocular movements intact. Pupils: Pupils are equal, round, and reactive to light. Cardiovascular: Rate and Rhythm: Normal rate and regular rhythm. Heart sounds: No murmur heard. Comments: Bilateral DP pulses difficult to palpate, normal radial pulses No JVD No hepatojugular reflux Pulmonary: Effort: Pulmonary effort is normal. No respiratory distress. Breath sounds: Normal breath sounds. Abdominal: General: Bowel sounds are normal. There is distension. Palpations: There is no mass. Tenderness: There is abdominal tenderness. There is no guarding. Musculoskeletal: Right lower leg: Edema present. Left lower leg: Edema present. Comments: 1+ pitting edema bilateral Neurological: General: No focal deficit present. Mental Status: He is alert and oriented to person, place, and time. Mental status is at baseline. Psychiatric: Mood and Affect: Mood normal. Went through patient's supplements at bedside. 1- mens prostate formula 2- fiber capsules 3- arriaza's yeast 4- Ca, Mg, Zinc 5- vision formula 6- triple omega 7- alfalfa 8- hair, skin, nail supplement 9- complete multivitamin 10- Vitamin B complex 11- iron 12- aller-zyr (zyrtec) 13- ginko biloba 14- saw palmetto 15- cinnamon 16- apple cider vinegar 17- resveratrol 18- aspirin 19- ashwaghanda Laboratory Data Recent Labs Component Name 11/05/24 0307 11/04/2412 11/03/24 0046 WBC 10.5 9.4 12.0* HGB 11.3* 12.7* 12.3* HCT 32.2* 35.4* 34.8* PLTCOUNT 106* 110* 121* MCV 83.2 82.7 82.9 Recent Labs Component Name 11/05/24 0307 11/04/24 0612 11/03/24 0046 PT 17.7* 18.2* 23.6* INR 1.5 1.6 2.2 Recent Labs Component Name 11/05/24 0307 11/04/24 1303 11/04/24 0612 NA 138 140 139 139 POTASSIUM 2.7* 3.6 2.7* 2.7* CL 99 99 100 100 CO2 29 26 25 25 BUN 70* 71* 74* 74* CREATININE 1.46* 1.55* 1.57* 1.57* Recent Labs Component Name 11/05/24 0307 11/04/24 1303 11/04/24 0612 11/04/24 0031 CALCIUM 7.5* 7.4* 7.3* 7.3* 6.9* PHOS 2.8 - 2.4* 2.1* Recent Labs Component Name 11/05/24 0307 11/04/24 0612 11/04/24 0031 11/03/24 0800 11/03/24 0046 PROT 5.0* 5.4* - - 5.5* ALB 2.6* 2.6* 2.6* 2.7* - 2.7* 2.7* ALKPHOS 119 118 - - 121 AST 171* 301* - - 941* ALT 1,070* 1,580* - - 2,637* TBILI 2.5* 2.7* - - 2.7* - = values in this interval not displayed. No results for input(s): CKTOTAL, CKMBCK2, TROPONINI in the last 81135 hours. No results for input(s): VANCORNDM, VANCTROUGH in the last 87861 hours. Microbiology Results (Displays last 21 days for this encounter ONLY) Procedure Component Value - Date/Time CULTURE BLOOD [[id number]] (Normal) Collected: 11/02/241758 Lab Status: Preliminary result Specimen: Blood from BC Peripheral 1 Updated: 11/04/24 2330 Culture No growth CULTURE BLOOD [[id number]] (Normal) Collected: 11/02/241758 Lab Status: Preliminary result Specimen: Blood from BC Peripheral 2 Updated: 11/04/24 2330 Culture No growth RESPIRATORY PANEL WITH SARS-COV-2 BY PCR ([facility]) [[id number]] (Normal) Collected: 11/02/24 0818 Lab Status: Final result Specimen: Microbiology from Nasopharyngeal Updated: 11/02/24 1624 Adenovirus PCR Not detected Coronavirus 229E PCR Not detected Coronavirus HKU1 PCR Not detected Coronavirus NL63 PCR Not detected Coronavirus OC43 PCR Not detected COVID-19 PCR Not detected Human Metapneumovirus PCR Not detected Human Rhinovirus/Enterovirus PCR Not detected Influenza A PCR Not detected Influenza B PCR Not detected Parainfluenza Virus 1 PCR Not detected Parainfluenza Virus 2 PCR Not detected Parainfluenza Virus 3 PCR Not detected Parainfluenza Virus 4 PCR Not detected Respiratory Syncytial Virus PCR Not detected Bordetella parapertussis PCR Not detected Bordetella pertussis PCR Not detected Chlamydia pneumoniae PCR Not detected Mycoplasma pneumoniae PCR Not detected Narrative: This nucleic amplification assay has received FDA authorization via the [employer] [place]way. Imaging US Abdomen Ltd W Comp Doppler Result Date: 11/02/2024 IMPRESSION: 1. No discrete hepatic lesion or intrahepatic biliary dilation. Patent hepatic vasculature. 2. Sludge in the gallbladder. 3. Incidental right pleural effusion 4. Trace fluid in the Angulo's pouch Report dictated by Zachary Rushing MD (Animal Humane Agent Supervisor) Zan Jeronimo MD have personally reviewed and interpreted this examination/study. > Interpreting Provider: Zan Cortes MD on 11/02/2024 1:40 PM XR Chest 1Vw Portable Result Date: 11/02/2024 IMPRESSION: Cardiomegaly. Atherosclerotic aorta. Bilateral interstitial and hazy airspace opacities, which may represent pulmonary edema or pneumonia in the appropriate clinical setting. No large effusion or pneumothorax. > Interpreting Provider: Taisha Seymour MD on 11/02/2024 12:55 PM XR Abdomen Kub Portable Result Date: 11/02/2024 IMPRESSION: Mild mildly dilated small bowel loops measuring up to 4 cm. Gas is identified in the distal colon and rectum. Findings may represent ileus or low- grade obstruction. Mild to moderate left predominant colonic stool volume. Mild left basilar atelectasis/airspace disease. Cardiomegaly. >Interpreting Provider: Taisha Seymour MD on 11/02/2024 12:54 PM Relevant labs and imaging data reviewed on [facility]. Assessment and Plan Hepatic trauma, initial encounter (POA: Unknown) KASEY (acute kidney injury) (POA: Unknown) Other specified anemias (POA: Unknown) Urinary retention (POA: Unknown) Heart failure with reduced ejection fraction (HCC) (POA: Unknown) Cardiogenic shock (HCC) (POA: Unknown) Elevated troponin (POA: Unknown) Transaminitis (POA: Yes) Assessment & Plan Cardiogenic shock (HCC) Elevated troponin Heart failure with reduced ejection fraction (HCC) Hydralazine 10mg TID Isosorbide dinitrate 10mg TID Lasix resumed today Telemetry Cards planning for L and R heart cath tomorrow 11/06 NPO midnight Hepatic trauma, initial encounter Transaminitis Ddx: shock liver vs acetaminophen toxicity vs [...] antibodies, ANCA panel, anti-LKM1 antibodies, IgG, ceruloplasmin, [id number] - F-Actin antibody IgG normal - mitochondrial M2 antibody normal - hepatitis panel normal - Dc all OTC supplements - Dc lactulose - Daily CBC, CMP, INR KASEY (acute kidney injury) Cardiorenal vs hepatorenal syndrome 10/31 US with solid hypoechoic left renal mass and subcentimeter L renal cyst Per rads: CT urogram or abdominal MRI w contrast Dc fluid restriction Start cardiac diet Restart lasix today Other specified anemias Thrombocytopenia Iron panel consistent with chronic disease - HgB stable, continue to monitor - monitor platelet counts closely Urinary retention Patient wanting to try voiding without catheter - provided bedside urinal - can restart external catheter if needed - tamsulosin 0.4mg daily Diet: DIET CARDIAC DIET NPO Except: SIPS WITH MEDS DVT Prophylaxis: Heparin (DVT Prophylaxis Dose) Code Status: LIMITED RESUSCITATION-PRIOR AND AFTER ARREST [place] Candidate?: No Electronically Signed By: Jared Vasquez MD 11/05/2024 12:07 PM The above assessment and plan will be discussed with attending physician. This note is not final until attested by the attending physician. Cosigned by Deann Stephens MD at 11/05/2024 6:48 PM CDT Associated attestation - Deann Stephens MD - 11/05/2024 6:48 PM CDT I have seen and examined the patient with the resident and I agree with the findings and plan of care as documented by the resident. In addition: Hepatic trauma, initial encounter (POA: Unknown) KASEY (acute kidney injury) (POA: Unknown) Other specified anemias (POA: Unknown) Urinary retention (POA: Unknown) Heart failure with reduced ejection fraction (HCC) (POA: Unknown) EF 26% Cardiogenic shock (HCC) (POA: Unknown) Elevated troponin (POA: Unknown) Transaminitis (POA: Yes) Thrombocytopenia (POA: Unknown) Constipation BPH Anemia Hypokalemia Left renal mass - needs outpatient CT urogram vs MRI abd for further w/u Had diuresis holiday yesterday, will resume lasix today Plan for LHC and RHC tomorrow for ischemic and shock eval Will review all supplements son brought in for possible cause of liver injury Date of Service: 11/05/2024 Deann Stephens MD READMISSION RISK SCORE is 12 at 6:44 PM 11/05/2024. * Joann Sánchez RN - 11/04/2024 7:25 PM CDT Problem: Skin/Tissue Integrity - Adult Goal: Skin integrity remains intact Description: INTERVENTIONS: Outcome: Progressing Goal: Incisions, wounds, or drain sites healing without S/S of infection Description: INFECTIONS: Outcome: Progressing Goal: Oral mucous membranes remain intact Description: INTERVENTIONS: Outcome: Progressing Problem: Pain/Discomfort Goal: Patient exhibits reduced pain/discomfort as evidenced by pain scores Outcome: Progressing Goal: Patient uses pharmacological and non-pharmacological pain management strategies. Outcome: Progressing Goal: Patient verbalizes acceptable level of pain relief and ability to engage in desired activity. Outcome: Progressing Problem: Fall Risk Goal: Fall risk and fall related injury risk are minimized (interventions related to the fall risk can be found in the flowsheet documentation) Outcome: Progressing Patient verbalized understanding of care plan consisting of pain, skin care and fall precautions. * Jared Vasquez MD - 11/04/2024 5:50 PM CDT [facility] Internal Medicine Progress Note Name: Gabino Ocampo Room/Bed: [facility]/ : 1950 74 year old PCP: No primary care provider on file. Admit Date/Time: 11/01/2024 9:26 PM LOS: 3 Subjective Interval update: Transferred from MICU to floors. Stopped dobutamine drip today 11/04. Hospital course: Gabino Ocampo is 74 year old male w/ PMH of HFrEF (EF of 25%) who presented from OSH for acute liver injury c/b KASEY and concern for cardiogenic shock. Patient initially presented on 10/23 for SOB but left AMA. He returned on 10/30/2024 and was found to have AST >7000, ALT> 5800. Patient denies ETOH use. Troponins were also elevated. Prior to transfer patient was started on NAC for liver injury and dobutamine for concern for cardiogenic shock in setting of reduced EF of 25%. Pt states he hasn't seen a doctor in years but met a PCP last week who started him on torsemide and metoprolol.He states he does not take any medications, but does take a number of supplements in which he is unable to recall all their names. He denies taking tylenol and states he is not a drinker. 10/31 OSH US Kidney/Bladder shows solid hypoechoic left renal mass and subcentimeter left renal cyst 11/01 arrival to [facility], patient Aox3 (person, place and time) and has acutely diffuse abdominal pain.He reports SOB and has been having congestion and cough for the past two weeks. Patient denies having knowledge of any liver disease or illness in the past. He further states that he has not had a BMin 1-2 weeks, and hasn't eaten in 2 days. He denies nausea and vomiting. 11/02 Pt had rectal exam without stool impaction due to empty rectal vault. Enemas were deployed and pt had 2 Bms with relief of some pain. - 11/02 US with doppler shows no hepatic lesions or intrahepatic biliary dilation with patent hepatic vasculature. GB sludge. Incidental right pleural effusion. Trace fluid in the Angulo's pouch - 11/02 KUB shows mildly dilated small bowel loops with gas in the distal colon and rectum with mildto moderate L predominant colonic stool volume. Findings may represent ileus or low-grade obstruction 11/02 TTE shows EF of 26% with a moderately dilated LV, globally hypokinetic LV wall motion, and severely reduced systolic function. Dilated RV with normal systolic function. Objective Temp: [98 ??F (36.7 ??C)-99.1 ??F (37.3 ??C)] 99.1 ??F (37.3 ??C) Pulse: [77-114] 90 Resp: [13-45] 18 BP: (93-129)/(53-94) 124/72 Weight change: Intake/Output Summary (Last 24 hours) at 11/04/2024 1751 Last data filed at 11/04/2024 0656 Gross per 24 hour Intake -- Output 450 ml Net -450 ml Physical Exam: Physical Exam Constitutional: General: He is not in acute distress. Appearance: Normal appearance. HENT: Head: Normocephalic. Eyes: Extraocular Movements: Extraocular movements intact. Pupils: Pupils are equal, round, and reactive to light. Cardiovascular: Rate and Rhythm: Normal rate and regular rhythm. Heart sounds: No murmur heard. Comments: Bilateral DP pulses difficult to palpate, normal radial pulses No JVD No hepatojugular reflux Pulmonary: Effort: Pulmonary effort is normal. No respiratory distress. Breath sounds: Normal breath sounds. Abdominal: General: Bowel sounds are normal. There is distension. Palpations: There is no mass. Tenderness: There is abdominal tenderness. There is no guarding. Musculoskeletal: Right lower leg: Edema present. Left lower leg: No edema. Comments: 1+ pitting edema to mid lower right leg, no edema left Neurological: General: No focal deficit present. Mental Status: He is alert and oriented to person, place, and time. Mental status is at baseline. Psychiatric: Mood and Affect: Mood normal. Scheduled Medications: Medications[1] PRN Medications: Medications[2] Continuous Infusions: Medications[3] Laboratory Data Recent Labs Component Name 11/04/24 0612 11/03/24 0046 11/01/24 2323 WBC 9.4 12.0* 14.0* HGB 12.7* 12.3* 12.6* HCT 35.4* 34.8* 36.3* PLTCOUNT 110* 121* 124* MCV 82.7 82.9 85.0 Recent Labs Component Name 11/04/24 0612 11/03/24 0046 11/02/24 1759 PT 18.2* 23.6* 25.5* INR 1.6 2.2 2.4 Recent Labs Component Name 11/04/24 1303 11/04/24 0612 11/04/24 0031 NA 140 139 139 135* POTASSIUM 3.6 2.7* 2.7* 2.7* CL 99 100 100 98 CO2 BUN 71* 74* 74* 74* CREATININE 1.55* 1.57* 1.57* 0.91 Recent Labs Component Name 11/04/24 1303 11/04/24 0612 11/04/24 0031 11/03/24 1801 CALCIUM 7.4* 7.3* 7.3* 6.9* 7.1* PHOS - 2.4* 2.1* 2.4* Recent Labs Component Name 11/04/24 0612 11/04/24 0031 11/03/24 1801 11/03/24 0800 11/03/24 0046 11/02/24 2047 11/01/24 2323 PROT 5.4* - - - 5.5* - 5.2* ALB 2.6* 2.6* 2.7* 2.5* - 2.7* 2.7* - 2.8* ALKPHOS 118 - - - 121 - 115 AST 301* - - - 941* - 3,174* ALT 1,580* - - - 2,637* - 3,970* TBILI 2.7* - - - 2.7* - 1.6* - = values in this interval not displayed. No results for input(s): CKTOTAL, CKMBCK2, TROPONINI in the last 15930 hours. No results for input(s): VANCORNDM, VANCTROUGH in the last 27338 hours. Microbiology Results (Displays last 21 days for this encounter ONLY) Procedure Component Value - Date/Time CULTURE BLOOD [[id number]] (Normal) Collected: 11/02/241758 Lab Status: Preliminary result Specimen: Blood from BC Peripheral 1 Updated: 11/03/24 2330 Culture No growth 24 hours CULTURE BLOOD [[id number]] (Normal) Collected: 11/02/241758 Lab Status: Preliminary result Specimen: Blood from BC Peripheral 2 Updated: 11/03/24 2330 Culture No growth 24 hours RESPIRATORY PANEL WITH SARS-COV-2 BY PCR ([facility]) [[id number]] (Normal) Collected: 11/02/24 0818 Lab Status: Final result Specimen: Microbiology from Nasopharyngeal Updated: 11/02/24 1624 Adenovirus PCR Not detected Coronavirus 229E PCR Not detected Coronavirus HKU1 PCR Not detected Coronavirus NL63 PCR Not detected Coronavirus OC43 PCR Not detected COVID-19 PCR Not detected Human Metapneumovirus PCR Not detected Human Rhinovirus/Enterovirus PCR Not detected Influenza A PCR Not detected Influenza B PCR Not detected Parainfluenza Virus 1 PCR Not detected Parainfluenza Virus 2 PCR Not detected Parainfluenza Virus 3 PCR Not detected Parainfluenza Virus 4 PCR Not detected Respiratory Syncytial Virus PCR Not detected Bordetella parapertussis PCR Not detected Bordetella pertussis PCR Not detected Chlamydia pneumoniae PCR Not detected Mycoplasma pneumoniae PCR Not detected Narrative: This nucleic amplification assay has received FDA authorization via the [employer]. Imaging US Abdomen Ltd W Comp Doppler Result Date: 11/02/2024 IMPRESSION: 1. No discrete hepatic lesion or intrahepatic biliary dilation. Patent hepatic vasculature. 2. Sludge in the gallbladder. 3. Incidental right pleural effusion 4. Trace fluid in the Angulo's pouch Report dictated by Zachary Rushing MD (Animal Humane Agent Supervisor) IZan MD have personally reviewed and interpreted this examination/study. > Interpreting Provider: Zan Cortes MD on 11/02/2024 1:40 PM XR Chest 1Vw Portable Result Date: 11/02/2024 IMPRESSION: Cardiomegaly. Atherosclerotic aorta. Bilateral interstitial and hazy airspace opacities, which may represent pulmonary edema or pneumonia in the appropriate clinical setting. No large effusion or pneumothorax. > Interpreting Provider: Taisha Seymour MD on 11/02/2024 12:55 PM XR Abdomen Kub Portable Result Date: 11/02/2024 IMPRESSION: Mild mildly dilated small bowel loops measuring up to 4 cm. Gas is identified in the distal colon and rectum. Findings may represent ileus or low- grade obstruction. Mild to moderate left predominant colonic stool volume. Mild left basilar atelectasis/airspace disease. Cardiomegaly. >Interpreting Provider: Taisha Seymour MD on 11/02/2024 12:54 PM Relevant labs and imaging data reviewed on [facility]. Assessment and Plan Hepatic trauma, initial encounter (POA: Unknown) KASEY (acute kidney injury) (POA: Unknown) Other specified anemias (POA: Unknown) Leukocytosis (leucocytosis) (POA: Unknown) Urinary retention (POA: Unknown) Heart failure with reduced ejection fraction (HCC) (POA: Unknown) Cardiogenic shock (HCC) (POA: Unknown) Elevated troponin (POA: Unknown) Assessment & Plan Cardiogenic shock (HCC) Elevated troponin Heart failure with reduced ejection fraction (HCC) Hydralazine 10mg TID Isosorbide dinitrate 10mg TID Lasix held today (diuretic holiday) Telemetry Needs ischemic workup once stable Hepatic trauma, initial encounter Transaminitis Ddx: shock liver vs acetaminophen toxicity vs alcoholic hepatitis vs autoimmune -patient denies alcohol use in the last 40 years Transaminases markedly elevated but downtrending Unclear baseline - no close PCP followup Ultrasound with no clear etiology for liver injury. No ascites. Trace fluid morrisons pouch. PLAN: AMA, MEREDITH, Antismooth muscle antibodies, ANCA panel, anti-LKM1 antibodies, IgG, ceruloplasmin, [id number] - F-Actin antibody IgG normal - mitochondrial M2 antibody normal - hepatitis panel normal - Dc all OTC supplements - Dc lactulose - Daily CBC, CMP, INR KASEY (acute kidney injury) Cardiorenal vs hepatorenal syndrome 10/31 US with solid hypoechoic left renal mass and subcentimeter L renal cyst Per rads: CT urogram or abdominal MRI w contrast Dc fluid restriction Start cardiac diet Holding diuretics today 11/04 Other specified anemias Iron panel consistent with chronic disease - HgB stable, continue to monitor Urinary retention Patient wanting to try voiding without catheter - provided bedside urinal - can restart external catheter if needed - tamsulosin 0.4mg daily Leukocytosis (leucocytosis) (Resolved: 11/04/2024) Resolved Diet: DIET CARDIAC DVT Prophylaxis: Heparin (DVT Prophylaxis Dose) Code Status: LIMITED RESUSCITATION-PRIOR AND AFTER ARREST [place] Candidate?: No Electronically Signed By: Jared Vasquez MD 11/04/2024 5:51 PM The above assessment and plan will be discussed with attending physician. This note is not final until attested by the attending physician. [1] 0.9% NaCl 3 mL Intracatheter q8h bisacodyl 10 mg Rectal QDAY [Held by Provider] furosemide 40 mg Intravenous BID heparin 5,000 Units Subcutaneous q8h hydrALAZINE 10 mg Intravenous TID isosorbide dinitrate 10 mg Oral TID pantoprazole EC 40 mg Oral QDAY polyethylene glycol 3350 17 g Oral BID tamsulosin 0.4 mg Oral QDAY [2] SALINE LOCK, INSERT AND MAINTAIN AND 0.9% NaCl AND 0.9% NaCl fluticasone propionate [3] Cosigned by Deann Stephens MD at 11/05/2024 6:48 PM CDT * Anmol Wesley DO - 11/04/2024 1:46 PM CDT ICU to [facility] Transfer Summary I ICU Admission Reason & Brief ICU Course: Gabino Ocampo is 74 year old male w/ PMH of HFrEF (EF of 25%) who presented from OSH for acute liver injury c/b KASEY and concern for cardiogenic shock. Patient initially presented on 10/23 for SOB but left AMA. He returned on 10/30/2024 and was found to have AST >7000, ALT> 5800. Patient denies ETOH use. Troponins were also elevated. Patient transferred to [facility] for liver team. Prior to transfer patient was started on NAC for liver injury and dobutamine for concern for cardiogenic shock in setting of reduced EF of 25%. Pt states he hasn't seen a doctor in years but met a PCP last week who started him on torsemide and metorprolol. He states he does not take any medications, but does take a number of supplements in which he is unable to recall all their names. He denies taking tylenol and states he is not a drinker. 10/31 OSH US Kidney/Bladder shows solid hypoechoic left renal mass and subcentimeter left renal cyst 11/01 arrival to [facility], patient Aox3 (person, place and time) and has acutely diffuse abdominal pain.He reports SOB and has been having congestion and cough for the past two weeks. Patient denies having knowledge of any liver disease or illness in the past. He further states that he has not had a BMin 1-2 weeks, and hasn't eaten in 2 days. He denies nausea and vomiting. 11/02 Pt had rectal exam without stool impaction due to empty rectal vault. Enemas were deployed and pt had 2 Bms with relief of some pain. - 11/02 US with doppler shows no hepatic lesions or intrahepatic biliary dilation with patent hepatic vasculature. GB sludge. Incidental right pleural effusion. Trace fluid in the Angulo's pouch - 11/02 KUB shows mildly dilated small bowel loops with gas in the distal colon and rectum with mildto moderate L predominant colonic stool volume. Findings may represent ileus or low-grade obstruction 11/02 TTE shows EF of 26% with a moderately dilated LV, globally hypokinetic LV wall motion, and severely reduced systolic function. Dilated RV with normal systolic function. C Code Status/DPOA Info/Goals of Care/ACP Note: LIMITED RESUSCITATION-PRIOR AND AFTER ARREST U Unprescribing & Pertinent High-Risk Medications: Changes to home meds - Pt newly prescribed torsemide 20QD and metorprolol 25QD by PCP 2 weeks ago. Pt previously hadn't seen a physician in years. -- holding above regimen in setting of HF exacerbation, ALI, KASEY Anticoagulation: [ ] VTE Prophylaxis - Heparin 5000 subQ in setting of KASEY Antibiotics: [ ] N/A - no current planned antimicrobioals P Pending Tests at the Time of Transfer: Further liver workup labs A Active consultants, including Rehab: [ ] Subspecialty Consultants: Cards, GI signed off [ ] PT [ ] OT U Uncertainty Measure/Diagnostic Pause: Working diagnosis at the time of transfer HFrEF exacerbation causing ALI and AKSEY S Summary of Major Problems and To-Dos: Diuresis holiday today 11/04 due to being dry and thirsty on exam 2. Follow cards recs of HF treatment To-do list prior to transfer: E Exam at the time of transfer, including Lines/Drains/Airways & Data Review: Primary service upon arrival to medical floors: General Medicine Anmol Wesley DO PGY-1 MICU1 11/04/24 Cosigned by Lamberto Singh MD at 11/08/2024 3:22 PM CDT * Shankar Womack MD - 11/04/2024 1:07 PM CDT [facility] Inpatient Cardiology Consultation Progress Note Patient: Gabino Ocampo Date of Admission: 11/01/2024 LOS: 3 Subjective Patient seen and examined at bedside, sitting comfortably in chair this morning. He reports shortness of breath has improved significantly. Had a 1.3 L urine output in the last 24 hours, renal function is improving. He does have severe hypokalemia of 2.7 today. Continues to be on dobutamine. HPI Gabino Ocampo is a 74 year old male with PMH of HFrEF (EF of 25%) who presented from OSH for acute liver injury c/b KASEY and concern for cardiogenic shock. Patient initially presented on 10/23 for SOB but left AMA. He returned on 10/30/2024 and was found to have AST >7000, ALT> 5800. Patient denies ETOH use. Troponins were also elevated. Patient transferred to [facility] for liver team. Prior to transfer patient was started on NAC for liver injury and dobutamine for concern for cardiogenic shock in setting of reduced EF of 25%. Upon arrival, patient Aox3 (person, place and time) and denies any acute pain. He does report some SOB which upon further evaluation is described as nasal congestion. Patient denies having knowledge of any liver or heart disease or illness in the past. Cardiology consulted 11/02 after concerns for cardiogenic shock. Per chart review patient has reported EF of 25% from OSH. His son states that patient has been feeling short of breath for 1.5 weeks, however the somnolence is new this admission. BNP 847, troponin 113, 137, 169. Lactate 2.8, 2.8. Signs of liver injury and KASEY with LFTs in the 3000s and Cr 3.85. Objective BP 113/71 Pulse 102 Temp 98.2 ??F (36.8 ??C) (Oral) Resp 22 Ht 1.676 m (5' 6) Wt 73 kg (160 lb 15 oz) SpO2 100% General appearance: Alert, oriented, in no distress. Chest: No wheezes or crackles Heart: Regular rate and rhythm. S1, S2 normal. No murmurs, clicks, rubs or gallops. No JVD or carotid bruits. Abdomen: Soft. Bowel sounds normal. Extremities: Brent ankle edema Skin: warm and dry All labs, imaging, and diagnostics reviewed. Assessment and Plan # Cardiogenic shock # Acute liver injury, differentials include shock liver versus primary liver pathology. # KASEY # Newly diagnosed HFrEF, acute on chronic Patient's shock may be cardiogenic given low EF and signs of fluid overload. However, patient did not have a history of CHF before this episode. Thus a comprehensive workup is indicated and underway with GI for a potential liver injury causing HFrEF. Regarding patient's current status, we will recommend continuing the current regimen with diuresis and dobutamine. Recommendations: - Reduce Lasix to 40 IV twice daily. - Stop dobutamine - Continue isosorbide dinitrate and hydralazine - Please remove fluid restrictions -Please replace K aggressively - Keep K>4, Mg>2 - Continue telemetry - Patient will need ischemic eval eventually. We will follow. Staffed with Dr. Anderson. Please see attending attestation for any changes to recommendations. Shankar Womack MD search engine marketing strategist [facility] Cosigned by Tracey Anderson MD at 11/04/2024 5:15 PM CDT Associated attestation - Tracey Anderson MD - 11/04/2024 5:15 PM CDT ATTENDING ATTESTATION NOTE I have seen and examined the patient with the resident and I agree with the findings and plan of care as documented by the resident. Interval Hx: improving SOB, abdominal pain HPI: 74 year old male who reports that for a few weeks he had sinus problems, then abodominal pain and then SOB - now with acute HF and shock liver. Patient transferred from OSH when he was started on SILK SCREEN CUTTER due to Echo with reduced EF and shock liverand concern for cardiogenic shock. LFT improving. Cr also improving. Patient takes many OTC supplements. No prior hx of HFrEF until now. No prior hx of liver disease either. ON exam, warm extremities, mild edema, elevated JVD, normal heart sounds, no significant murmurs. New onset acute heart failure with reduced EF and volume overload Cardiogenic shock Shock liver KASEY Cr was improving (one outlier valvue which was normal, not clear if lab error). OK to stop SILK SCREEN CUTTER. Continue hydralazine isordil. If worsens without Inotrope - would then consider PA catheter. Consider also RHC on Wednesday. Starting to appear more euvolemic. Reduce Lasix to 40 IV BID. Remove fluid restriction for patient Symptoms started in sinusitis which patient has often. Then also abdominal pain end edema and SOB. Suspect shock liver related to cardiac dysfunction however, presentation somewhat atypical. Question if CMY is a stress response to another primary insult. For CMY work, please check HIV. Ferritin high, get Fe Panel (likely ferritin is acute phase reactant). Eventually when renal function improves will need ischemic eval. Prior to SILK SCREEN CUTTER BP was normal (10/31 BPs BP: 125/89 119/83 (!) 130/96) which seems unusual for development of shock liver related to cardiogenic shock. - agree with GI with work for up for other primary cause of liver injury. - patient takes many OTC supplements, not clear if this contributed to any toxicity Rest of plan as per the resident note. Date of Service: 11/04/24 Tracey Anderson MD * Anmol Wesley, DO - 11/04/2024 6:39 AM CDT MICU Progress Note with ICU to Floors Summary 11/04/2024 6:40 AM Patient: Gabino Ocampo (:1950) Room: [facility]/ Admit Date: 11/01/2024. Hospital Day: 3 CC: Hospital Course: Gabino Ocampo is 74 year old male w/ PMH of HFrEF (EF of 25%) who presented from OSH for acute liver injury c/b KASEY and concern for cardiogenic shock. Patient initially presented on 10/23 for SOB but left AMA. He returned on 10/30/2024 and was found to have AST >7000, ALT> 5800. Patient denies ETOH use. Troponins were also elevated. Patient transferred to [facility] for liver team. Prior to transfer patient was started on NAC for liver injury and dobutamine for concern for cardiogenic shock in setting of reduced EF of 25%. Pt states he hasn't seen a doctor in years but met a PCP last week who started him on torsemide and metorprolol. He states he does not take any medications, but does take a number of supplements in which he is unable to recall all their names. He denies taking tylenol and states he is not a drinker. 10/31 OSH US Kidney/Bladder shows solid hypoechoic left renal mass and subcentimeter left renal cyst 11/01 arrival to [facility], patient Aox3 (person, place and time) and has acutely diffuse abdominal pain.He reports SOB and has been having congestion and cough for the past two weeks. Patient denies having knowledge of any liver disease or illness in the past. He further states that he has not had a BMin 1-2 weeks, and hasn't eaten in 2 days. He denies nausea and vomiting. 11/02 Pt had rectal exam without stool impaction due to empty rectal vault. Enemas were deployed and pt had 2 Bms with relief of some pain. - 11/02 US with doppler shows no hepatic lesions or intrahepatic biliary dilation with patent hepatic vasculature. GB sludge. Incidental right pleural effusion. Trace fluid in the Angulo's pouch - 11/02 KUB shows mildly dilated small bowel loops with gas in the distal colon and rectum with mildto moderate L predominant colonic stool volume. Findings may represent ileus or low-grade obstruction 11/02 TTE shows EF of 26% with a moderately dilated LV, globally hypokinetic LV wall motion, and severely reduced systolic function. Dilated RV with normal systolic function. Interval History: 11/04 - pt complaining of being very thirsty - lifted fluid restriction started cardiac diet - diuresis holiday Objective: Vitals: 11/04/24 0242 11/04/24 0342 11/04/24 0400 11/04/24 0442 BP: 112/71 110/75 109/94 Pulse: 100 91 78 90 Resp: Temp: SpO2: 96% 97% 98% 100% Weight: Height: Intake/Output Summary (Last 24 hours) at 11/04/2024 0640 Last data filed at 11/03/2024 1803 Gross per 24 hour Intake 550 ml Output 1250 ml Net -700 ml Physical Exam General - A&Ox4 NAD, afebrile, non cachectic HEENT - NC/AT, EOMI, clear conjunctivae, throat without erythema or exudate, dry mucous membranes, red spots on nose. Neck - Supple, no LAD, JVD decreased compared to yesterday with hepatojugular reflex Chest - CTAB no crackles or wheezes bilaterally CV - RRR no murmurs, radial and DP pulses 2/4, good capillary refill Abdomen - NTTP with mildly distended abdomen. Normoactive BS, no tympany on percussion. no organomegaly Musculoskeletal - Moves all four extremities Extremities - No edema at ankles Skin - No rashes, lesions or jaundice Neurologic - A&O x 4, no focal neurological deficits Psych - Appropriate mood and affect Labs: CBC: Recent Labs Component Name 11/03/24 0046 11/01/24 2323 WBC 12.0* 14.0* HGB 12.3* 12.6* HCT 34.8* 36.3* BMP: Recent Labs Component Name 11/04/24 0031 11/03/24 1801 11/03/24 0800 NA 135* 136 139 CL 98 98 97* CO2 24 22 24 BUN 74* 85* 91* CREATININE 0.91 1.95* 2.42* CALCIUM 6.9* 7.1* 7.1* PHOS 2.1* 2.4* 2.8 Hepatic: Recent Labs Component Name 11/04/24 0031 11/03/24 1801 11/03/24 0800 11/03/24 0046 11/02/24 2047 11/01/24 2323 ALT - - - 2,637* - 3,970* AST - - - 941* - 3,174* TBILI - - - 2.7* - 1.6* PROT - - - 5.5* - 5.2* ALB 2.7* 2.5* 2.8* 2.7* 2.7* - 2.8* ALKPHOS - - - 121 - 115 - = values in this interval not displayed. Coagulation: Recent Labs Component Name 11/03/24 0046 11/02/24 1759 11/01/24 2323 PT 23.6* 25.5* 29.5* INR 2.2 2.4 2.9 Cardiac Markers: No results for input(s): CK, CKTOTAL, CKMB, CKMBUL, CKMBNGML, TROPONIN, TROPONINI, TROPONINT in the last 00095 hours. ABGs: No results for input(s): PHART, PO2ART, HQP4TJF, BEART in the last 12497 hours. Micro: Micro reviewed. Imaging: Imaging reviewed. Assessment: Hepatic trauma, initial encounter (POA: Unknown) KASEY (acute kidney injury) (POA: Unknown) Other specified anemias (POA: Unknown) Leukocytosis (leucocytosis) (POA: Unknown) Urinary retention (POA: Unknown) Heart failure with reduced ejection fraction (HCC) (POA: Unknown) Cardiogenic shock (HCC) (POA: Unknown) Elevated troponin (POA: Unknown) PLAN: Neurological: #Encephalopathy (resolved) - Uremia vs hepatic vs septic vs ammonia -- admission BUN 95, AST/ALT's over 3k, LA 2.8 w/ Bcx pending, ammonia of 80 - CTH no acute intracranial process - Neurochecks, fall and seizure precautions Cardiovascular: #HFrEF (26%EF) #Cardiogenic shock (resolved) - 11/02 TTE confirms EF of 26% - BNP 847, LA 2.8 on admission - Established care with PCP last week for the first time in years -- PCP prescribed metoprolol 25mg QD and torsemide 20mg QD. Patient denies taking these medications. (Holding GDMT in setting of cardiogenic shock) - pt dry on exam today Plan: - dc dobutamine drip - diuresis holiday 11/04 -- resume IV Lasix 40 mg BID tomorrow 11/04 - hydralazine/Isordil 10/10 mg TID - Hold GDMT in setting of hypotension and KASEY - MAP goal > 65 mmHg #Elevated troponin on admission (resolved) - HSTroponin of 169 --> 137 --> 113 - denies chest pain Pulmonary: #Dyspnea (resolved) - 11/01 CXR shows b/l pulmonary nodules, cardiomegaly, pulmonary vascular congestion, and tortuous calcified aortic arch. - Sating upper 90s on 3L NC - 11/02 Resp viral panel, vbacterial PCR and blood cultures all negative Plan - Flonase, mucinex - Lasix IV 40 BID - SpO2 goal > 92% GI: #Acute Liver Injury (resolving) - Hepatitis panel, antimitochondrial antibodies & antismooth muscle antibodies (F-actin) all negative - Acetaminophen level WNL - pt denies alcohol abuse or use - 11/02 US with doppler shows no hepatic lesions or intrahepatic biliary dilation with patent hepatic vasculature. GB sludge. Incidental right pleural effusion. Trace fluid in the Angulo's pouch - Pending HIV panel, Antinuclear antibodies (MEREDITH), ANCA panel, anti-LKM1 antibodies, IgG, Ceruloplasmin plasma levels, Serum Alpha-1 antitrypsin (AAT) levels - AST/ALT coming down markedly Plan: - Vitamin K 10mg daily - DC NAC drip #Constipation (resolved) - Dulcolax 10 mg po daily - Miralax BID - Protonix 40 #Nutrition - Clears Renal: #Cardiorenal Dz #KASEY - hepatorenal vs cardiorenal - Cr downtrending - 10/31 kidney US shows solid hypoechoic L renal mass and subcentimeter L renal cyst -- Radiology recs evaluation with CT urogram or abdominal MRI with contrast -- will consider further imaging upon clinical improvement Plan: - Lasix 40 BID - Replete Mg to 2, P to 3, K to 4 - Monitor I/Os #BPH - Tamsulosin 0.4mg Endocrine: - Accu checks Q6 - Goal sugar 140-180 ID: #Leukocytosis (resolved) - WBC 9.4 afebrile - 11/02 UA shows trace bacteria, 6-10 WBC, 6-10 RBC, trace protein, & 2+ blood. - 11/02 blood cultures NGTD Heme/Onc: #Anemia (stable) - Transfuse for Hb < 7, Plt < 10 FEN: Monitor electrolytes QD, Replace K<4, Mg<2, Phos<3 LDA: Peripheral IV Anterior;Left;Upper Arm (Active) Placement Date/Time: 11/02/24 011 Size (Gauge): 20 G Orientation: Anterior;Left;Upper Location: Arm Site Prep: Chlorhexidine Technique: Ultrasound Guidance Insertion attempts (FOR ED ONLY): 1 Number of days: 2 Peripheral IV Anterior;Right;Upper Arm (Active) Placement Date/Time: 11/03/241999 Size (Gauge): 18 G Orientation: Anterior;Right;Upper Location: Arm Number of days: 0 Prophylaxis: Aspiration precautions w/ HOB elevation by 30 degrees GI prophyalxis w/ pantoprazole 40 mg QD PO. DVT prophyalxis w/ heparin 5000 units Q 8 hrs SubQ. Diet: DIET CLEAR LIQUID Activity: Level: Activity as tolerated Disposition: ICU Monitoring Code Status: LIMITED RESUSCITATION-PRIOR AND AFTER ARREST Anmol Wesley DO PGY-1 MICU 11/04/24 Cosigned by Lamberto Singh MD at 11/04/2024 4:12 PM CDT Associated attestation - Lamberto Singh MD - 11/04/2024 4:12 PM CDT I have seen, examined and discussed the patient with the resident and I agree with the the findingsand plan of care/recommendations as documented by the resident. Date of service: 11/04/2024 Lamberto Singh M.D. [facility] Division of Pulmonary, Critical Care and Sleep Medicine [facility] * Queenie Odell, CADE - 11/03/2024 1:59 PM CDT [facility] Physical Medicine and Rehabilitation Occupational Therapy Initial Evaluation Note Co-eval with PT 2/2 unknown level of assist Patient: Gabino Ocampo [facility] Record Number: [id number] Date of : 1950 Age: [age] year old PPE worn by staff: gloves PPE worn by patient: gown - patient, clean;socks - clean Tech: No Recommendations: Discharge OT Discharge Recommendations: Other: (anticipate return home pending improvement and safety) Recommended Transportation Method: To be Determined In addition to the 1:1 evaluation of the patient, additional eval time was spent completing the chart review prior to the assessment, completing the multidisciplinary plan of care and education plan post evaluation and communicating results of the eval to other treatment team members. Nurse and Physical Therapist contacted regarding patient status and/or discharge plan. Physician Orders: Evaluation and Treat Activity Level: as tolerated PRECAUTIONS: Weight Bearing Status: Lower Extremity;Upper Extremity Weight Bearing: WBAT DIAGNOSIS: Problem List[1] Past Medical History[2] SUBJECTIVE: Subjective: pt agreeable to therapy evaluation PATIENT GOALS / WHAT MATTERS MOST TO THE PATIENT: Patient's Primary Concern: to go home Home Situation: Type of Residence: Private Residence Living arrangement: Alone Steps to Enter: No Home Structure: One Story Primary Bedroom: First Floor Primary Bathroom: First Floor Bathroom : Tub/Shower Combo Equipment at Home: Cane;Walker;Wheelchair Prior Level of Functioning: Mobility: Ambulate-In Community;Ambulate-In Home ;Independent;Driving Fallen Within 6 Mos: No Have Help at Home?: Yes, there is help at home now Who assists you at home?: Friends/Family Oxygen at Home: No Activity at Home: Active Vision: (readers) Hearing Exceptions: Hearing concerns Who manages medications?: self Pain Assessment: Pain Assessment Pain Scale/Observation: No/denies pain OBJECTIVE: At start of therapy session, patient found in patient bedside chair and with chair alarm on General Appearance: resting in chair LDA: ICU: IV's: Peripheral line, Catheter: Indwelling, and Telemetry Edema: No edema noted Vitals: (*Assess the 3 levels of oxygen saturations both for room air and 02 unless rest on room air is 88% or less). Rest BP: 109/89 (99) HR: 96 Sp02 Sp02 100% RA Ex/Gait/Activity Without 02 BP: HR: Sp02 Post Activity BP: 126/78 (98) HR: 102 Sp02 Sp02 RA Observations: Vitals monitored throughout session via ICU monitor. Pt without any SOB, dizziness, or signs/symptoms of distress. Mental Status/Cognition: Level of Consciousness-Adult: (A&Ox4) Cognition: (follows, alert) Attention Span: Attends with cues to redirect Memory: Decreased recall of recent events Following Commands: Follows one step commands with increased time Safety Judgement: Decreased awareness of need for safety Awareness of Errors: Assistance required to identify errors made;Assistance required to correct errors made Problem Solving: Assistance required to identify errors made;Assistance required to implement solutions UE ROM: RUE: AROM WFL LUE: AROM WFL Strength: RUE: WFL LUE: WFL UE Tone RUE: no abnormal tone noted LUE: no abnormal tone noted Coordination: intact serial opposition for bilateral hands UE Sensation RUE: intact, no complaints of numbness or tingling LUE: intact, no complaints of numbness or tingling Mobility: A gait belt and non-slip socks were used for all out of bed activity this date. Bed Mobility: Supine to Sit: Activity Does Not Occur Sit to Supine: Activity Does Not Occur Transfers: Sit to Stand: Minimal Assistance Stand to Sit: Minimal Assistance Transfer Device: Gait belt Functional Ambulation: Patient ambulated in room with min assist without device. Balance: Balance Scales/Tests Used: Sitting: Static/Dynamic;Standing: Static/Dynamic Sitting - Static: Good Sitting - Dynamic: Good - Standing - Static: Fair + Standing - Dynamic: Fair Activities of Daily Living Lower Body Dressing: Stand By Assist (to doff and don B socks while seated in chair) Toileting: Minimal Assistance (for simulated toilet transfer. pt declined need to complete task at this time) Splint Issued/Checked: none ACTIVITY TOLERANCE: Activity Tolerance: Complains of fatigue after standing activity/gait Modified [place]: AM-PAC 6 Clicks Daily Activity Raw Score:: 20 TREATMENT / EDUCATION / INTERVENTIONS: While performing OT, Patient was instructed in:functional mobility training, self-care training, cognitive retraining, safety awareness/fall precautions , use of adaptive equipment, discharge planning, use of call light Presented to patient who demonstrates Fair understanding of instructions given. INFORMED CONSENT TO TREATMENT: Plan of care including recommended therapy, goals and frequency, discussed with patient who understands and agrees to proceed. ASSESSMENT: Functional performance limited due to: limited activities of daily living, decreased functional mobility, decreased functional balance, decreased cognition , decreased safety awareness, and decreasedendurance and activity tolerance. Patient continues to benefit from skilled Occupational Therapy toachieve the following functional goals. Equipment Issued: gait belt. Short Term Goals: Goal Formation With patient Patient will perform lower extremity dressing independently Patient will transfer to standard toilet independently Patient will tolerate treatment 25 minutes and with good endurance Patient will demonstrate good understanding of safety education, energy conservation, modified sternal precautions , and adaptive equipment Soil Surveyor Goal(s): Patient to be independent with functional mobility and self-care and should be able to safely discharge to prior level of care. Plan: Patient continues to benefit from skilled therapy services. If patient is discharged from the facility, this note serves as a discharge summary if further occupational therapy visits did not occur. Refer to filed flowsheet for further details. Following therapy session, patient left in patient bedside chair , with chair alarm on and positioned under patient's buttocks , with call light within reach, with RNCaroline aware, with therapy cues visible on white board, all lines/tubes intact. [1] Patient Active Problem List: Hepatic trauma, initial encounter KASEY (acute kidney injury) Other specified anemias Leukocytosis (leucocytosis) Urinary retention Heart failure with reduced ejection fraction (HCC) Cardiogenic shock (HCC) Elevated troponin [2] No past medical history on file. * Mervat Ortiz PT - 11/03/2024 1:59 PM CDT [facility] Physical Medicine and Rehabilitation Physical Therapy Initial Evaluation Note Patient: Gabino Ocampo Med Record Number: [id number] Date of : 1950 Age: [age] year old PPE worn by staff: gloves PPE worn by patient: gown - patient, clean;socks - clean Co-eval w/ OT Jim d/t unknown assist levels Recommendations: Discharge PT Discharge Recommendations: Other: (PT anticipates return home pending improvement. Patient not currently safe at this time.) Recommended Transportation Method: To be Determined In addition to the 1:1 evaluation of the patient, additional eval time was spent completing the chart review prior to the assessment, completing the multidisciplinary plan of care and education plan post evaluation and communicating results of the eval to other treatment team members. PT will continue to follow for DME needs. Nurse and Occupational Therapist contacted regarding patient status and/or discharge plan. Physician Orders: Evaluation and Treat PRECAUTIONS: Weight Bearing Status: (No WBing restrictions) Activity Level: Activity as Tolerated DIAGNOSIS: Problem List[1] Past Medical History[2] SUBJECTIVE: Subjective: I want to sleep in the chair. Patient agreeable to PT services. PATIENT GOALS / WHAT MATTERS MOST TO THE PATIENT: Patient's Primary Concern: did not state Home Situation: Type of Residence: Private Residence Living arrangement: Alone Steps to Enter: No Home Structure: One Story Primary Bedroom: First Floor Primary Bathroom: First Floor Bathroom : Tub/Shower Combo Equipment at Home: Cane;Walker;Wheelchair Additional Information (PT): IND prior Prior Level of Functioning: Prior Level of Function Mobility: Ambulate-In Community;Ambulate-In Home ;Independent;Driving Fallen Within 6 Mos: No Have Help at Home?: Yes, there is help at home now Who assists you at home?: Friends/Family Oxygen at Home: No Activity at Home: Active Vision: Other (Comment) (readers) Hearing Exceptions: Hearing concerns Who manages medications?: self Pain Assessment: Pain Assessment Pain Scale/Observation: No/denies pain OBJECTIVE: At start of therapy session, patient found in patient bedside chair and with chair alarm on. General Appearance: Patient is a 74 year old male. No acute distress noted at PT entry. LDAs: ICU: IV's: Peripheral line, Catheter: Indwelling, and Telemetry Edema: no edema noted in bilateral lower extremities Vitals: (*Assess the 3 levels of oxygen saturations both for room air and 02 unless rest on room air is 88% or less). Rest BP: 109/89 HR: 96 Sp02 100% Room Air Post Activity BP: 126/78 HR: 102 Sp02 95% Room Air Observations: Patient tolerated PT session w/o adverse events. Patient limited by fatigue during session. Mental Status/Cognition: Level of Consciousness-Adult: Other (comment) (A&Ox4) Cognition: (follows, alert) ROM: RLE: AROM WFL LLE: AROM WFL Strength: RLE:WFL LLE: WFL Tone: RLE: no abnormal tone noted LLE: no abnormal tone noted Coordination: RLE: not tested LLE: not tested Sensation: RLE: no complaints of numbness or tingling LLE: no complaints of numbness or tingling Mobility: A gait belt and non-slip socks were used for all out of bed activity this date. Bed Mobility: Supine to Sit: Activity Does Not Occur Sit to Supine: Activity Does Not Occur Transfers: Sit to Stand: Minimal Assistance Stand to Sit: Minimal Assistance Transfer Device: Gait belt Gait: Weight Bearing Status: (No WBing restrictions) Distance Ambulated (ft): 25 FEET Ambulation: Assistive Device: Gait Belt Ambulation: Level of Assistance: Minimum Assistance Ambulation: Gait Deviations: Marilyn - Decreased;Increased Trunk Flexion Balance: Balance Scales/Tests Used: Sitting: Static/Dynamic;Standing: Static/Dynamic Sitting - Static: Good Sitting - Dynamic: Good - Standing - Static: Fair + Standing - Dynamic: Fair ACTIVITY TOLERANCE: Activity Tolerance: Complains of fatigue after standing activity/gait TREATMENT/INTERVENTIONS: evaluation AM-PAC 6 Clicks Mobility Raw Score:: 18 EDUCATION: While performing PT, Patient was instructed in:functional mobility training, self-care training, safety awareness/fall precautions , use of adaptive equipment, discharge planning Presented to patient who demonstrates Fair understanding of instructions given. INFORMED CONSENT TO TREATMENT: Plan of care including recommended therapy, goals and frequency, discussed with patient who understands and agrees to proceed. ASSESSMENT: Patient would benefit from additional Physical Therapy sessions to achieve the following functionalgoals to enhance independence. Short Term Goals: Goal Formation With patient Patient will perform bed mobility with modified independence Patient will transfer sit to/from stand with modified independence and with least restrictive assistive device Patient will transfer bed to/from chair with modified independence and with least restrictive assistive device Patient will ambulate 150 feet with modified independence and with least restrictive assistive device Patient will ascend/descent 2 steps with modified independence and with least restrictive assistivedevice Soil Surveyor Goal(s): Patient to be independent with functional mobility and self-care and should be able to safely discharge to prior level of care. Equipment Issued: gait belt Plan: Gait training Transfer training Stair training Assistive device training Endurance training Bed mobility training Balance training Safety awareness If patient is discharged from the facility, this note serves as a discharge summary if further physical therapy visits did not occur. Refer to filed flowsheet for further details. Following therapy session, patient left in patient bedside chair , with chair alarm on and positioned under patient's buttocks , with call light within reach, with RNCaroline aware, with therapy cues visible on white board, all lines/tubes intact. [1] Patient Active Problem List: Hepatic trauma, initial encounter KASEY (acute kidney injury) Other specified anemias Leukocytosis (leucocytosis) Urinary retention Heart failure with reduced ejection fraction (HCC) Cardiogenic shock (HCC) Elevated troponin [2] No past medical history on file. * Hermelindo Zamudio - 11/03/2024 12:57 PM CDT [facility] Inpatient Cardiology Consultation Progress Note Patient: Gabino Ocampo Date of Admission: 11/01/2024 LOS: 2 Subjective Patient still on dobutamine, no new symptoms for patient today. Cr, LFTs improving. Significant urine output this morning following lasix administration. HPI Gabino Ocampo is a 74 year old male with PMH of HFrEF (EF of 25%) who presented from OSH for acute liver injury c/b KASEY and concern for cardiogenic shock. Patient initially presented on 10/23 for SOB but left AMA. He returned on 10/30/2024 and was found to have AST >7000, ALT> 5800. Patient denies ETOH use. Troponins were also elevated. Patient transferred to [facility] for liver team. Prior to transfer patient was started on NAC for liver injury and dobutamine for concern for cardiogenic shock in setting of reduced EF of 25%. Upon arrival, patient Aox3 (person, place and time) and denies any acute pain. He does report some SOB which upon further evaluation is described as nasal congestion. Patient denies having knowledge of any liver or heart disease or illness in the past. Cardiology consulted 7/17 after concerns for cardiogenic shock. Per chart review patient has reported EF of 25% from OSH. His son states that patient has been feeling short of breath for 1.5 weeks, however the somnolence is new this admission. BNP 847, troponin 113, 137, 169. Lactate 2.8, 2.8. Signs of liver injury and KASEY with LFTs in the 3000s and Cr 3.85. Objective BP 123/99 Pulse 100 Temp 98.4 ??F (36.9 ??C) Resp 25 Ht 1.676 m (5' 6) Wt 73 kg (160 lb 15 oz) SpO2 100% General appearance: Alert, oriented, in no distress. Chest: No wheezes or crackles Heart: Regular rate and rhythm. S1, S2 normal. No murmurs, clicks, rubs or gallops. No JVD or carotid bruits. Abdomen: Soft. Bowel sounds normal. Extremities: Brent ankle edema Skin: warm and dry All labs, imaging, and diagnostics reviewed. Assessment and Plan # Cardiogenic shock # Shock liver # KASEY # Newly diagnosed HFrEF, acute on chronic Patient's shock may be cardiogenic given low EF and signs of fluid overload. However, patient did not have a history of CHF before this episode. Thus a comprehensive workup is indicated and underway with GI for a potential liver injury causing HFrEF. Regarding patient's current status, we will recommend continuing the current regimen with diuresis and dobutamine. Recommendations: - Continue IV Lasix 80 mg TID - Continue dobutamine at 5 mcg/kg/min, wean as appropriate - Monitor labs (lactate, renal function) q6 hours - Recommend placing CVC for monitoring VBGs q6hrs to calculate Daniela CO, transducing CVP - Continue telemetry - Keep K>4, Mg>2 at all times We will follow. Staffed with Dr. Anderson. Please see attending attestation for any changes to recommendations. Hermelindo Zamudio MS4 [facility] Cosigned by Tracey Anderson MD at 11/03/2024 4:56 PM CDT Associated attestation - Tracey Anderson MD - 11/03/2024 4:56 PM CDT Please see initial consult attestation: HPI: 74 year old male who reports that for a few weeks he had sinus problems, then abodominal pain and then SOB - now with acute HF and shock liver. Patient transferred from OSH when he was started on SILK SCREEN CUTTER due to Echo with reduced EF and shock liverand concern for cardiogenic shock. LFT improving. Cr also improving. Patient takes many OTC supplements. No prior hx of HFrEF until now. No prior hx of liver disease either. ON exam, warm extremities, mild edema, elevated JVD, normal heart sounds, no significant murmurs. New onset acute heart failure with reduced EF and volume overload Cardiogenic shock Shock liver KASEY Symptoms started in sinusitis which patient has often. Then also abdominal pain end edema and SOB. Suspect shock liver related to cardiac dysfunction however, presentation somewhat atypical. Question if CMY is a stress response to another primary insult. For CMY work, please check TSH, HIV. Ferritin high, get Fe Panel (likely ferritin is acute phase reactant). Eventually when renal function improves will need ischemic eval. Prior to SILK SCREEN CUTTER BP was normal (10/31 BPs BP: 125/89 119/83 (!) 130/96) which seems unusual for development of shock liver related to cardiogenic shock. - agree with GI with work for up for other primary cause of liver injury. - patient takes many OTC supplements, not clear if this contributed to any toxicity For now continue with currently therapy: - hydal/isordil - IV diuresis - SILK SCREEN CUTTER * Sheela Malloy RN - 11/03/2024 10:59 AM CDT Care Coordination Progress Note Expected Discharge Date: 11/06/2024 Discharge Plan: Pt is expected to return home when medically ready for discharge. CM will continue to follow for discharge planning. Family Support (Name and Phone): Extended Emergency Contact Information Primary Emergency Contact: José Miguel Ocampo Mobile Relation: Son Secondary Emergency Contact: Edgard Ocampo Mobile Relation: Son Transportation at Discharge: Family: READMISSION RISK SCORE is 11 at 11:00 AM 11/03/2024.: Name: Sheela Malloy RN * Anmol Wesley, - 11/03/2024 6:16 AM CDT MICU Progress Note 11/03/2024 6:16 AM Patient: Gabino Ocampo (:1950) Room: [facility]/ Admit Date: 11/01/2024. Hospital Day: 2 CC: cardiogenic shock, ALI, KASEY Hospital Course: Gabino Ocampo is 74 year old male w/ PMH of HFrEF (EF of 25%) who presented from OSH for acute liver injury c/b KAESY and concern for cardiogenic shock. Patient initially presented on 10/23 for SOB but left AMA. He returned on 10/30/2024 and was found to have AST >7000, ALT> 5800. Patient denies ETOH use. Troponins were also elevated. Patient transferred to [facility] for liver team. Prior to transfer patient was started on NAC for liver injury and dobutamine for concern for cardiogenic shock in setting of reduced EF of 25%. Pt states he hasn't seen a doctor in years but met a PCP last week who started him on torsemide and metorprolol. He states he does not take any medications, but does take a number of supplements in which he is unable to recall all their names. He denies taking tylenol and states he is not a drinker. 10/31 OSH US Kidney/Bladder shows solid hypoechoic left renal mass and subcentimeter left renal cyst 11/01 arrival to [facility], patient Aox3 (person, place and time) and has acutely diffuse abdominal pain.He reports SOB and has been having congestion and cough for the past two weeks. Patient denies having knowledge of any liver disease or illness in the past. He further states that he has not had a BMin 1-2 weeks, and hasn't eaten in 2 days. He denies nausea and vomiting. 11/02 Pt had rectal exam without stool impaction due to empty rectal vault. Enemas were deployed and pt had 2 Bms with relief of some pain. - 11/02 US with doppler shows no hepatic lesions or intrahepatic biliary dilation with patent hepatic vasculature. GB sludge. Incidental right pleural effusion. Trace fluid in the Angulo's pouch - 11/02 KUB shows mildly dilated small bowel loops with gas in the distal colon and rectum with mildto moderate L predominant colonic stool volume. Findings may represent ileus or low-grade obstruction 11/02 TTE shows EF of 26% with a moderately dilated LV, globally hypokinetic LV wall motion, and severely reduced systolic function. Dilated RV with normal systolic function. Interval History: 11/03 - continues to complain of abdominal pain, dry sinuses, and SOB - had 3 BMs and abdominal distension/pain is improved Objective: Vitals: 11/03/24 0000 11/03/24 0100 11/03/24 0200 11/03/24 0225 BP: Pulse: 98 102 83 Resp: 23 25 20 Temp: 97.7 ??F (36.5 ??C) 97.5 ??F (36.4 ??C) 97.7 ??F (36.5 ??C) SpO2: 100% Weight: 73 kg (160 lb 15 oz) Height: Intake/Output Summary (Last 24 hours) at 11/03/2024 0616 Last data filed at 11/03/2024 0409 Gross per 24 hour Intake -- Output 3850 ml Net -3850 ml Physical Exam General - A&Ox4 NAD, afebrile, non cachectic HEENT - NC/AT, EOMI, clear conjunctivae, throat without erythema or exudate, dry mucous membranes, red spots on nose. Neck - Supple, no LAD, JVD present with hepatojugular reflex Chest - CTAB no crackles or wheezes bilaterally CV - RRR no murmurs, radial and DP pulses 2/4, good capillary refill Abdomen - Tender slightly less distended abdomen with hypoactive BS, tympanic on percussion. no organomegaly Musculoskeletal - Moves all four extremities Extremities - slight < +1 distal edema at ankles (even less than yesterday) Skin - No rashes, lesions or jaundice Neurologic - A&O x 4, no focal neurological deficits Psych - Appropriate mood and affect Labs: CBC: Recent Labs Component Name 11/03/24 0046 11/01/24 2323 WBC 12.0* 14.0* HGB 12.3* 12.6* HCT 34.8* 36.3* BMP: Recent Labs Component Name 11/03/246 11/02/24204611/01/24 2323 NA 137 137 137 136 CL 96* 96* 93* 94* CO2 24 24 23 24 BUN 90* 90* 90* 95* CREATININE 2.63* 2.63* 2.85* 3.85* CALCIUM 6.8* 6.8* 6.7* 6.5* PHOS 2.9 3.4 4.4 Hepatic: Recent Labs Component Name 11/03/246 11/02/24204611/01/24 2323 ALT 2,637* - 3,970* AST 941* - 3,174* TBILI 2.7* - 1.6* PROT 5.5* - 5.2* ALB 2.7* 2.7* 2.9* 2.8* ALKPHOS 121 - 115 Coagulation: Recent Labs Component Name 11/03/244511/02/24175811/01/24 2323 PT 23.6* 25.5* 29.5* INR 2.2 2.4 2.9 Cardiac Markers: No results for input(s): CK, CKTOTAL, CKMB, CKMBUL, CKMBNGML, TROPONIN, TROPONINI, TROPONINT in the last 30960 hours. ABGs: No results for input(s): PHART, PO2ART, CVV8KIB, BEART in the last 12196 hours. Micro: Micro reviewed. Imaging: Imaging reviewed. Assessment: Hepatic trauma, initial encounter (POA: Unknown) KASEY (acute kidney injury) (POA: Unknown) Other specified anemias (POA: Unknown) Leukocytosis (leucocytosis) (POA: Unknown) Urinary retention (POA: Unknown) Heart failure with reduced ejection fraction (HCC) (POA: Unknown) Cardiogenic shock (HCC) (POA: Unknown) Elevated troponin (POA: Unknown) PLAN: Neurological: #Encephalopathy (resolved) - Uremia vs hepatic vs septic vs ammonia -- admission BUN 95, AST/ALT's over 3k, LA 2.8 w/ Bcx pending, ammonia of 80 - CTH no acute intracranial process - Neurochecks, fall and seizure precautions Cardiovascular: #HFrEF (26%EF) #Cardiogenic shock (resolved) - 11/02 TTE confirms EF of 26% - BNP 847 on admission - Established care with PCP last week for the first time in years -- PCP prescribed metoprolol 25mg QD and torsemide 20mg QD. Patient denies taking these medications. (Holding GDMT in setting of cardiogenic shock) Plan: - dobutamine drip 5 mcg/kg/min - IV Lasix 80 mg QD - hydralazine/Isordil 10/10 mg TID - Hold GDMT in setting of hypotension and KASEY - Monitor labs (lactate, renal function) q6 hours - MAP goal > 65 mmHg #Elevated troponin on admission (resolved) - HSTroponin of 169 --> 137 --> 113 - denies chest pain Pulmonary: #Dyspnea (improving) - 11/01 CXR shows b/l pulmonary nodules, cardiomegaly, pulmonary vascular congestion, and tortuous calcified aortic arch. - Sating upper 90s on 3L NC Plan - Flonase, mucinex - Lasix 80 TID - SpO2 goal > 92% GI: #Acute Liver Injury - GI following, recs appreciated - ALT/AST of 941/2637 downtrending from >7000 at OSH - Hepatitis panel negative - Acetaminophen level WNL - ammonia of 80 (N = <72) - pt denies alcohol abuse or use - 11/02 US with doppler shows no hepatic lesions or intrahepatic biliary dilation with patent hepatic vasculature. GB sludge. Incidental right pleural effusion. Trace fluid in the Angulo's pouch - Ordered HIV panel, Antimitochondrial antibodies (AMA), Antinuclear antibodies (MEREDITH), Antismooth muscle antibodies (ASMA/F-actin), ANCA panel, anti-LKM1 antibodies, IgG, Ceruloplasmin plasma levels,Serum Alpha-1 antitrypsin (AAT) levels - AST/ALT coming down markedly Plan: - Vitamin K 10mg daily - NAC drip till INR <1.5 #Constipation (resolving) - 11/02 KUB shows mildly dilated small bowel loops with gas in the distal colon and rectum with mildto moderate L predominant colonic stool volume. -- Findings may represent ileus or low-grade obstruction - Rectal exam found rectal vault to be empty - Pt has had 3 BMs Plan - Dulcolax 10 mg po daily - Miralax BID - Protonix 40 #Nutrition - Clears Renal: #Cardiorenal Dz #KASEY - hepatorenal vs cardiorenal - Cr downtrending 2.4 now down from 3.85 on admission with unknown baseline - 10/31 US Kidney/Bladder shows solid hypoechoic left renal mass and subcentimeter left renal cyst -- Rads recs evaluation with CT urogram or abdominal MRI with contrast -- will consider further imaging pending clinical improvement Plan: - Lasix 80 TID - Replete Mg to 2, P to 3, K to 4 - Monitor I/Os Endocrine: - Accu checks Q6 - Goal sugar 140-180 ID: #Leukocytosis - WBC 12 afebrile - 11/02 UA shows trace bacteria, 6-10 WBC, 6-10 RBC, trace protein, & 2+ blood. Plan - blood cultures pending Heme/Onc: #Anemia - No sign of GI bleed at this time Plan - Transfuse for Hb < 7, Plt < 10 FEN: Monitor electrolytes QD, Replace K<4, Mg<2, Phos<3 : #Urinary Retention #BPH - dc'd colin will monitor for retention Plan - Tamsulosin 0.4mg LDA: Peripheral IV Anterior;Left Forearm (Active) Placement Date/Time: 11/02/24 0100 Size (Gauge): 20 G Orientation: Anterior;Left Location: Forearm Site Prep: Chlorhexidine Technique: Ultrasound Guidance Insertion attempts (FOR ED ONLY): 1 Number of days: 1 Peripheral IV Anterior;Left;Upper Arm (Active) Placement Date/Time: 11/02/24 0115 Orientation: Anterior;Left;Upper Location: Arm Site Prep: Chlorhexidine Technique: Ultrasound Guidance Insertion attempts (FOR ED ONLY): 1 Number of days: 1 Urethral Catheter (Active) Placement Date/Time: 11/02/24 1130 Catheter Type : Temperature probe Number of days: 0 Prophylaxis: Aspiration precautions w/ HOB elevation by 30 degrees GI prophyalxis w/ pantoprazole 40 mg QD PO. DVT prophyalxis w/ heparin 5000 units Q 8 hrs SubQ. Diet: DIET NPO Except: SIPS WITH MEDS Activity: Level: Activity as tolerated Disposition: ICU Monitoring Code Status: LIMITED RESUSCITATION-PRIOR AND AFTER ARREST Anmol Wesley DO PGY-1 MICU 11/03/24 6:16 AM Cosigned by Lamberto Singh MD at 11/03/2024 4:21 PM CDT Associated attestation - Lamberto Singh MD - 11/03/2024 4:21 PM CDT MICU Attending Note (Pt seen with the MICU Team on 11/03/24 at 1030 hrs. I agree with their assessment and plans except as noted below.) The patient is a 74 y/o man who presented to an OSH with SOB on 10/30/24. He was found to have markedly elevated transaminases and an KASEY. An Echo revealed and EF of 25%. He developed shock and was started on Dobutamine. He was transferred to [facility] on 11/02/24. He has had several large BMs and feels much better. An Echo revealed and EF of 36%. PMHx: - Multiple supplement usage Hepatic trauma, initial encounter (POA: Unknown) KASEY (acute kidney injury) (POA: Unknown) Other specified anemias (POA: Unknown) Leukocytosis (leucocytosis) (POA: Unknown) Urinary retention (POA: Unknown) Heart failure with reduced ejection fraction (HCC) (POA: Unknown) Cardiogenic shock (HCC) (POA: Unknown) Elevated troponin (POA: Unknown) Meds: Reviewed. Exam: BP 102/75 Pulse 104 Temp 98.4 ??F (36.9 ??C) (Bladder) Resp 23 Ht 1.676 m (5' 6) Wt 73.1kg (161 lb 2.5 oz) SpO2 93% General: Alert, cooperative. Head: Normocephalic, without obvious abnormality, atraumatic. Eyes: Conjunctivae/corneas clear. EOMs intact. Ears: Normal TMs and external ear canals both ears. Nose: Nares normal. Septum midline. Mucosa normal. No drainage or sinus tenderness. Throat: Lips, mucosa, and tongue normal. Teeth and gums normal. Neck: No BRUNO, JVD Lungs: clear to auscultation Chest wall: No tenderness or deformity. Heart: Regular rate and rhythm, S1, S2 normal, no murmur, click, rub or gallop. Abdomen: Mildly distended. Extremities: No clubbing cyanosis or edema. Skin: Skin color, texture, turgor normal. No rashes or lesions Data: Reviewed. A/P: Neuro: Encephalopathy. Seems to have resolved. Resp: Hypoxic respiratory failure. Resolving. CV: HFrEF (new diagnosis). Will continue Dobutamine for now. Will continue to diurese. Cardiology evaluating. GI: Constipation/ileus. Resolving. Markedly elevated transaminases. I suspect this represents passive congestion of the liver secondary to CHF. Given his use of multiple supplements, toxic injury is possible. Will ask Hepatology about the continued need for NAC. Renal: KASEY. I suspect cardiorenal syndrome. Follow with diuresis. BPH. Continue Flomax. FEN: Clear liquid diet for now. Follow accuchecks. ID: Follow blood Cxs. Heme: Coagulopathy. Provide Vit K. Prophy: On Heparin sq. On PPI. Critical Care Time: 30 Mins From 1030 To 1100 hrs. Lamebrto Singh M.D. [facility] Division of Pulmonary, Critical Care and Sleep Medicine [facility] * Siri Rey RN - 11/02/2024 2:19 PM CDT Culture Pause Orders were reviewed with Provider: YES Blood Culture pause occurred. 11/02/2024 2:22 PM Discussed with MD: YES. Discussed with Dr. Singh Discussed with Charge Nurse: YES WBC increasing and high neutrophil predominance discussed. Siri Rey RN 11/02/2024 2:25 PM * Sheela Malloy RN - 11/02/2024 10:04 AM CDT Care Coordination Initial Assessment Expected Discharge Date: 11/06/2024 Expected Discharge Disposition: Home or Self Care Transportation at Discharge: Family Prior Level of Care: Home Prior to Admit Provider: No PCP Comments: Pt lives alone in a one-story home. There are no steps to enter the home. Pt is independent with ADLs and is able to drive himself to medical appointments. Pt does not use any DMEs. CM willcontinue to follow for discharge planning. Lives with: Alone Physical Limitations: None Requires Assistance With: None Preferred Pharmacy: [facility] [place] [id number] [facility] [phone] READMISSION RISK SCORE is 11 at 10:04 AM 11/02/2024. Met with patient and son Family Support (name and phone): No emergency contact information on file. Patient or manufacturers service representative requests care coordination reach out to family or caregiver listed above regarding discharge planning and at time of discharge? Yes Durable Medical Equipment Planning List DME pt. requires but does not have.: None Retail Advertising Sales Manager Referral: No Will continue to follow. For any questions or needs please contact: [phone] Repairer/Social Work Name/Phone number: Sheela Malloy RN * Anmol Wesley DO - 11/02/2024 7:44 AM CDT MICU Progress Note 11/02/2024 7:45 AM Patient: Gabino Ocampo (:1950) Room: [facility]/ Admit Date: 11/01/2024. Hospital Day: 1 CC: HFrEF, ALI, KASEY Hospital Course: Gabino Ocampo is 74 year old male w/ PMH of HFrEF (EF of 25%) who presented from OSH for acute liver injury c/b KASEY and concern for cardiogenic shock. Patient initially presented on 10/23 for SOB but left AMA. He returned on 10/30/2024 and was found to have AST >7000, ALT> 5800. Patient denies ETOH use. Troponins were also elevated. Patient transferred to [facility] for liver team. Prior to transfer patient was started on NAC for liver injury and dobutamine for concern for cardiogenic shock in setting of reduced EF of 25%. Pt states he hasn't seen a doctor in years but met a PCP last week who started him on torsemide and metorprolol. He states he does not take any medications, but does take a number of supplements in which he is unable to recall all their names. He denies taking tylenol and states he is not a drinker. 10/31 OSH US Kidney/Bladder shows solid hypoechoic left renal mass and subcentimeter left renal cyst 11/01 arrival to [facility], patient Aox3 (person, place and time) and has acutely diffuse abdominal pain.He reports SOB and has been having congestion and cough for the past two weeks. Patient denies having knowledge of any liver disease or illness in the past. He further states that he has not had a BMin 1-2 weeks, and hasn't eaten in 2 days. He denies nausea and vomiting. 11/02 Pt had rectal exam without stool impaction due to empty rectal vault. Enemas were deployed and pt had 2 Bms with relief of some pain. - 11/02 US with doppler shows no hepatic lesions or intrahepatic biliary dilation with patent hepatic vasculature. GB sludge. Incidental right pleural effusion. Trace fluid in the Angulo's pouch - 11/02 KUB shows mildly dilated small bowel loops with gas in the distal colon and rectum with mildto moderate L predominant colonic stool volume. Findings may represent ileus or low-grade obstruction 11/02 TTE ordered Interval History: 11/02 - rectal exam with empty vault and enemas - KUB reveals large stool burden with gaseous distal colon w/ possible ileus or low grade obstruction - pt had 2 bowel movements and his pain went down immensely - TTE ordered Objective: Vitals: 11/02/24 0400 11/02/24 0500 11/02/24 0515 11/02/24 0600 BP: 111/71 133/54 103/69 109/67 Pulse: 90 98 98 91 Resp: 23 23 12 Temp: 98.7 ??F (37.1 ??C) SpO2: 97% 99% 96% 96% Weight: Height: Intake/Output Summary (Last 24 hours) at 11/02/2024 0745 Last data filed at 11/02/2024 0424 Gross per 24 hour Intake 135.45 ml Output 750 ml Net -614.55 ml Physical Exam General - AAOx3 NAD, afebrile, non cachectic HEENT - NC/AT, EOMI, clear conjunctivae, throat without erythema or exudate, dry mucous membranes, red spots on nose. Neck - Supple, no LAD, no JVD Chest - CTAB no crackles or wheezes bilaterally CV - RRR no murmurs, radial and DP pulses 2/4, good capillary refill Abdomen - Tender distended abdomen with hypoactive BS, tympanic on percussion. no organomegaly Musculoskeletal - Moves all four extremities Extremities - slight < +1 distal edema at ankles Skin - No rashes, lesions or jaundice Neurologic - A&O x 3, no focal neurological deficits Psych - Appropriate mood and affect Labs: CBC: Recent Labs Component Name 11/01/24 2323 WBC 14.0* HGB 12.6* HCT 36.3* BMP: Recent Labs Component Name 11/01/24 2323 NA 136 CL 94* CO2 24 BUN 95* CREATININE 3.85* CALCIUM 6.5* PHOS 4.4 Hepatic: Recent Labs Component Name 11/01/24 2323 ALT 3,970* AST 3,174* TBILI 1.6* PROT 5.2* ALB 2.8* ALKPHOS 115 Coagulation: Recent Labs Component Name 11/01/24 2323 PT 29.5* INR 2.9 Cardiac Markers: No results for input(s): CK, CKTOTAL, CKMB, CKMBUL, CKMBNGML, TROPONIN, TROPONINI, TROPONINT in the last 94195 hours. ABGs: No results for input(s): PHART, PO2ART, LPM8LJW, BEART in the last 31037 hours. Micro: Micro reviewed. Imaging: Imaging reviewed. Assessment: Hepatic trauma, initial encounter (POA: Unknown) PLAN: Neurological: #Encephalopathy (resolved) - Uremia vs hepatic vs septic vs ammonia -- BUN 95, AST/ALT's over 3k, LA 2.8 w/ Bcx pending, ammonia of 80 - CTH no acute intracranial process - Neurochecks, fall and seizure precautions Cardiovascular: #HFrEF #concern for cardiogenic shock - [facility] report of EF of 25% - transferred in on dobutamine, still giving gtt - BNP 847 - Established care with PCP last week for the first time in years -- PCP prescribed metoprolol 25mg QD and torsemide 20mg QD. Patient denies taking these medications. (Holding in setting of cardiogenic shock) Plan: - continued dobutamine drip started at [facility] - cards consult - Repeat TTE ordered - Lasix 40 IV once to assess response - MAP goal > 65 mmHg #Elevated troponin on admission (resolved) - HSTroponin of 169 --> 137 --> 113 - denies chest pain Pulmonary: #Dyspnea - 11/01 CXR shows b/l pulmonary nodules, cardiomegaly, pulmonary vascular congestion, and tortuous calcified aortic arch. - Sating upper 90s on 3L NC Plan - Flonase, mucinex - Lasix 40 IV once to assess response - SpO2 goal > 92% GI: #Acute Liver Injury - GI following, recs appreciated - ALT/AST of 3970/3174 downtrending from >7000 at OSH - Hepatitis panel negative - Acetaminophen level WNL - ammonia of 80 (N = <72) - pt denies alcohol abuse or use - 11/02 US with doppler shows no hepatic lesions or intrahepatic biliary dilation with patent hepatic vasculature. GB sludge. Incidental right pleural effusion. Trace fluid in the Angulo's pouch Plan: - cont NAC (started at [facility]) - Ordered HIV panel, Antimitochondrial antibodies (AMA), Antinuclear antibodies (MEREDITH), Antismooth muscle antibodies (ASMA/F-actin), ANCA panel, anti-LKM1 antibodies, IgG, Ceruloplasmin plasma levels,Serum Alpha-1 antitrypsin (AAT) levels - US abd w doppler ordered - Vitamin K 10mg daily #Constipation (improving) - 11/02 KUB shows mildly dilated small bowel loops with gas in the distal colon and rectum with mildto moderate L predominant colonic stool volume. -- Findings may represent ileus or low-grade obstruction - Rectal exam found rectal vault to be empty Plan - Ducolax - consider NG decompression if pain persists - Protonix 40 #Nutrition - NPO Renal: #Cardiorenal Dz #KASEY - hepatorenal vs cardiorenal - Cr of 3.85 unknown baseline - 10/31 US Kidney/Bladder shows solid hypoechoic left renal mass and subcentimeter left renal cyst -- Rads recs evaluation with CT urogram or abdominal MRI with contrast -- will consider further imaging pending clinical improvement Plan: - Lasix 40 IV once - Replete Mg to 2, P to 3, K to 4 - Monitor I/Os Endocrine: - Accu checks Q6 - Goal sugar 140-180 ID: #Leukocytosis - WBC 14 afebrile - 11/02 UA shows trace bacteria, 6-10 WBC, 6-10 RBC, trace protein, & 2+ blood. Plan - blood cultures ordered Heme/Onc: #Anemia - No sign of GI bleed at this time Plan - Transfuse for Hb < 7, Plt < 10 FEN: Monitor electrolytes QD, Replace K<4, Mg<2, Phos<3 : #Urinary Retention #BPH - came from osh with colin, placed for urinary retention Plan - Tamsulosin 0.4mg - trial colin removal, bladder scans q6h LDA: Peripheral IV Anterior;Left Forearm (Active) Placement Date/Time: 11/02/24 0100 Size (Gauge): 20 G Orientation: Anterior;Left Location: Forearm Site Prep: Chlorhexidine Technique: Ultrasound Guidance Insertion attempts (FOR ED ONLY): 1 Number of days: 0 Peripheral IV Anterior;Left;Upper Arm (Active) Placement Date/Time: 11/02/24 0115 Orientation: Anterior;Left;Upper Location: Arm Site Prep: Chlorhexidine Technique: Ultrasound Guidance Insertion attempts (FOR ED ONLY): 1 Number of days: 0 Urethral Catheter (Active) Placement Date: 10/31/24 Existing LDA : Outside Facility Number of days: 2 Prophylaxis: Aspiration precautions w/ HOB elevation by 30 degrees GI prophyalxis w/ pantoprazole 40 mg QD PO. DVT prophyalxis w/ heparin 5000 units Q 8 hrs SubQ. Diet: DIET NPO Except: NO EXCEPTIONS Activity: Level: Activity as tolerated Disposition: ICU Monitoring Code Status: LIMITED RESUSCITATION-PRIOR AND AFTER ARREST Anmol Wesley DO PGY-1 MICU 11/02/24 7:45 AM Cosigned by Lamberto Singh MD at 11/08/2024 2:26 PM CDT * Steven Phelan RN - 11/02/2024 5:32 AM CDT 05:15 Pt is complaining of shortness of breath, O2 saturations are in the mid 90's. Pt says that isgetting worse. Dr. Mercado notified. 05:22 Dr. Mercado is at the bedside assessing patient. Orders received * Paulo Bruce - 11/02/2024 2:50 AM CDT Cloud Engagement Partner met with pt following a code status change notice. Pt was in bed watching TV at the time of older worker specialist visit. Pt shared with older worker specialist that he has had better days and that his family has been agreat support system since he arrived in the hospital. Per the pt request, older worker specialist asked the medical team if the pt could have some water. Medical team shared with older worker specialist that they will attend to the pt request. Pt is aware that pastoral care remains available. Chaplain [place] Mandarin Teacher [facility] [id number] * David Jain MD - 11/01/2024 3:56 PM CDT Update regarding conversation with transfer center: Patient was transferred to ICU level of care for worsening encephalopathy, not intubated and not onpressor support yet per transfer center. Spoke with Dr. Radha Kulkarni [facility] ICU attending. he was transferred to ICU last night for worsening confusion but still Alert and maintaining his airway. He is DNR/DNI. LVEF of 25%. Started on dobutamine today by card for inotrope assisted diuresis in the setting of cardiorenal. Since patient is now at ICU level of care, will need to be transferred to MICU. Will keep the same level of care on transfer. documented in this encounter H&P Notes * Shankar Womack MD - 11/16/2024 4:00 PM CDT [facility] PRE PROCEDURE H&P AND SEDATION NOTE Planned Course of Treatment/Procedure: Coronary angiography, Left Heart Cath, and Percutaneous Coronary Intervention History of Present Illness: 74 year old male with PMH of HFrEF (EF of 25%) who presented from OSH for acute liver injury c/b KASEY and concern for cardiogenic shock. 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 Cardiac MRI with no scar. CT surgery turned the patient down for CABG. He presents today for PCI. Heart Failure: Yes, Newly Diagnosed NYHA Class ll Systolic Stress Test Preformed: None Medications, vital signs and labs results reviewed prior to procedure: Yes Past Medical & Surgical History Illnesses: Past Medical History[1] Past Surgical History[2] Allergies[3] General: Well-developed in NAD. HEENT: NC/AT. PERRL. Neck: Supple. No tenderness, enlargement, JVDnormal. Lungs: CTAB. No respiratory distress. Heart: RRR. +S1, S2. No murmurs or gallops appreciated Abdomen: Soft. NT/ND. Ext/MS: No edema, no cyanosis Neuro: A&O x3. No focal deficits noted. Skin: No obvious rashes or lesions noted. Pulses: Radial : 2+ bilateral Femoral artery: 2+ bilateral Recent Labs Component Name 11/16/24 0253 11/15/24 0216 11/14/24 0114 11/11/24 0247 11/10/24 0241 11/09/24 0259 11/08/24 0301 WBC 6.8 7.0 7.8 - 10.7 10.9* 10.3 RBC 3.49* 3.44* 3.63* - 3.66* 3.72* 3.82* HGB 10.3* 10.1* 10.8* - 10.6* 10.9* 11.3* HCT 31.7* 30.8* 32.4* - 32.3* 32.5* 33.6* MCV 90.8 89.5 89.3 - 88.3 87.4 88.0 MCHC 32.5 32.8 33.3 - 32.8 33.5 33.6 PLTCOUNT 233 228 252 - 143* 125* 106* NEUTPCT 61.7 61.0 69.0 - - - - LYMPHPCT 26.1 26.0 18.5 - - - - NEUTABS - - - - 9.42* 7.74* 6.49 LYMPHABS 1.77 1.81 1.45 - 0.64* 1.20 2.78 BASOABS 0.02 0.04 0.02 - - - - - = values in this interval not displayed. Recent Labs Component Name 11/16/2425211/15/2421511/14/24 0114 POTASSIUM 4.1 4.3 4.6* CO2 24 25 26 BUN 10 11 14 CREATININE 0.83 0.84 0.94 GLUCOSE 107* 104* 101* CALCIUM 7.7* 7.8* 7.9* ALT 66* 74* 101* ALKPHOS 114 105 126 AST 33 32 46* EGFR >90 90 84* Recent Labs Component Name 11/16/2425211/15/2421511/14/24 0114 INR 1.2 1.2 1.1 Airway: Mallampati III (soft palate, base of uvula visible) ASA Class: {Class 3 - Severe Systemic Disease, Definite Functional Limitations Impression: Acute Coronary Syndrome greater than [address] Elevation - Acute Coronary Chest Pain Symptom Assessment: none Cardiac Instability: No Procedure Acuity Status: Elective Sedation: As per anaesthesia Fentanyl and Versed Indication: Sedation is required to allow for performance of procedure. Monitoring: heart rate, derivatives trader, continuous pulse oximetry, frequent blood pressure checks,level of consciousness, IV access, constant attendance until patient recovered, and emergency airway equipment available. Other indicators of a difficult intubation include: None Patient airway and condition has been evaluated immediately prior to sedation and/or analgesia: Yes Cardiology High Risk Variables HFrEF Were these present on admission? Yes Consent: Risk, benefits and alternatives were discussed with patient and consent for procedure was obtained. Shankar Womack MD 11/16/2024 4:00 PM [1] No past medical history on file. [2] Past Surgical History: Procedure Laterality Date Cardiac Catherization N/A 11/06/2024 N/A; Left and right heart cath Cardiac Catherization N/A 11/06/2024 N/A; iFR Cardiac Catherization N/A 11/06/2024 N/A; Coronary Angiography VASCULAR PROCEDURE/SURGERY N/A 11/06/2024 N/A; Angiogram - Peripheral [3] No Known Allergies Cosigned by Raulito Snatos MD at 11/17/2024 1:59 PM CDT * Solis Decker, SUZI-WALLPAPERER - 11/10/2024 10:13 AM CDT Cardiac Surgery Progress Note 11/10/2024 Gabino Ocampo 1950 Gabino Ocampo is a 74 year old male with PMH of HFrEF (EF of 25%) who presented from OSH for acute liver injury c/b KASEY and concern for cardiogenic shock. Patient initially presented on 10/23 for SOB but left AMA. He returned on 10/30/2024 and was found to have AST >7000, ALT> 5800. Patient denies ETOH use. Troponins were also elevated. Patient transferred to [facility] for liver evaluation. Patient was started on dobutamine for cardiogenic shock in setting of reduced EF of 25%. Patient states that he is overwhelmed at this point and only complains of diffuse abdominal pain. He also statesthat over the past few months that he's become less active and tires easily. Patient denies having knowledge of any prior liver or heart disease or illness in the past. Cardiology was consulted on 11/02/24 after concerns for cardiogenic shock. EF is 25% from OSH. BNP 847, troponin 113, 137, 169. Lactate 2.8, 2.8. Signs of liver injury and KASEY with LFTs in the 3000s and Cr 3.85. Heart cath revealed irf + 3V CAD. Interval history: 11/09: Patient was seen this morning at bedside. Patient refusing to interact with providers. He purposefully closed his eyes and ignored all providers; attempts to sternal rub him and elicit a response resulted in threats and patient stating he wants to , does not want anything done, and wants to join his [place]. 11/10: Patient seen and examined at bedside. No acute events overnight reported by RN. Patient is awake today and cooperative with interview and exam. He reorts feeling much better today. He agress with medical care and MRI today. Discussed with cardiology and primary team, will reorder MRI. OBJECTIVE: Recent Labs Component Name 11/10/24 0241 11/09/24 0259 11/08/24 0301 NA 129* 129* 134* POTASSIUM 3.2* 3.5 3.2* CO2 26 26 27 BUN 15 17 24 CREATININE 0.82 0.84 0.88 GLUCOSE 90 101* 104* CALCIUM 7.2* 7.3* 7.1* EGFR >90 90 89* Recent Labs Component Name 11/10/24 0241 11/09/24 0259 11/08/24 0301 11/06/24 0341 11/05/24 0307 11/04/24 0612 11/03/24 0046 WBC 10.7 10.9* 10.3 - 10.5 9.4 12.0* RBC 3.66* 3.72* 3.82* - 3.87* 4.28* 4.20* HGB 10.6* 10.9* 11.3* - 11.3* 12.7* 12.3* HCT 32.3* 32.5* 33.6* - 32.2* 35.4* 34.8* MCV 88.3 87.4 88.0 - 83.2 82.7 82.9 MCHC 32.8 33.5 33.6 - 35.1 35.9 35.3 PLTCOUNT 143* 125* 106* - 106* 110* 121* NEUTPCT - - - - 76.0* 81.7* 90.8* LYMPHPCT - - - - 10.0* 6.9* 2.7* NEUTABS 9.42* 7.74* 6.49 - - - - LYMPHABS 0.64* 1.20 2.78 - 1.05 0.65* 0.32* BASOABS - - - - 0.02 0.02 0.02 - = values in this interval not displayed. . Patient Vitals for the past 6 hrs: Temp Pulse Resp BP BP Method 11/10/24 0802 98 ??F (36.7 ??C) 81 18 118/74 Automatic Physical Exam: Genetral: non-cooperative with exam Lungs: Clear to ascultation CV: Reg rate, no murmur Abdomen: Soft, non-tender Ext: +1 edema at BLE Skin: Warm and dry Recent mages/films: Echo: The left ventricle is moderately dilated, with severely reduced systolic function and an estimated ejection fraction of 26 % by biplane method of disks. Left ventricular wall motion is globallyhypokinetic. Right ventricle is dilated with normal systolic function. No hemodynamically significant valve disease. The aortic root at the sinus of Valsalva is borderline dilated measuring 3.7 cm wit h an index of 2.0 cm/m??. The ascending aorta is dilated measuring 4.0 cm with an index of 2.1 cm/m??. Cath: Multi-vessel coronary artery disease. 60% proximal/mid LAD tubular stenosis, ischemic by iFR 0.72. 50% distal LM stenosis. 1st RPL lesion is 100% stenosed . 100% chronic total occlusion of RPDA and RPLV, distally filled by [id number] collaterals. Moderate LCX stenosis. Low/normal biventricular filling pressures. No pulmonary hypertension. Preserved cardiac output and cardiac index. Impression/Plan: -- CAD, multi vessel -- Acute liver failure -- HFrEF -- KASEY -- Ischemic cardiomyopathy Plan: Dr. Hartman called and discussed with his son who is agreeable with moving forward with cardiac MRI for evaluation as I think the CAD does not fully explain his cardiomyopathy. Will continue to follow. F/u cardiac MRI Rest of care by primary team I have discussed this with ANTWAN Witt 11/07/2024 10:13 AM * Solis Decker APRN-CNP - 11/09/2024 11:44 AM CDT Cardiac Surgery Progress Note 11/09/2024 Gabino Dubonradha 1950 Gabino Ocampo is a 74 year old male with PMH of HFrEF (EF of 25%) who presented from OSH for acute liver injury c/b KASEY and concern for cardiogenic shock. Patient initially presented on 10/23 for SOB but left AMA. He returned on 10/30/2024 and was found to have AST >7000, ALT> 5800. Patient denies ETOH use. Troponins were also elevated. Patient transferred to [facility] for liver evaluation. Patient was started on dobutamine for cardiogenic shock in setting of reduced EF of 25%. Patient states that he is overwhelmed at this point and only complains of diffuse abdominal pain. He also statesthat over the past few months that he's become less active and tires easily. Patient denies having knowledge of any prior liver or heart disease or illness in the past. Cardiology was consulted on 11/02/24 after concerns for cardiogenic shock. EF is 25% from OSH. BNP 847, troponin 113, 137, 169. Lactate 2.8, 2.8. Signs of liver injury and KASEY with LFTs in the 3000s and Cr 3.85. Heart cath revealed irf + 3V CAD. Interval history: Patient was seen this morning at bedside. Patient refusing to interact with providers. He purposefully closed his eyes and ignored all providers; attempts to sternal rub him and elicit a response resulted in threats and patient stating he wants to , does not want anything done,and wants to join his in our [facility]. Significant history of : Physical Exam: Genetral: non-cooperative with exam Lungs: Clear to ascultation CV: Reg rate, no murmur Abdomen: Soft, non-tender Ext: +1 edema at BLE Skin: Warm and dry Recent mages/films: Echo: The left ventricle is moderately dilated, with severely reduced systolic function and an estimated ejection fraction of 26 % by biplane method of disks. Left ventricular wall motion is globallyhypokinetic. Right ventricle is dilated with normal systolic function. No hemodynamically significant valve disease. The aortic root at the sinus of Valsalva is borderline dilated measuring 3.7 cm wit h an index of 2.0 cm/m??. The ascending aorta is dilated measuring 4.0 cm with an index of 2.1 cm/m??. Cath: Multi-vessel coronary artery disease. 60% proximal/mid LAD tubular stenosis, ischemic by iFR 0.72. 50% distal LM stenosis. 1st RPL lesion is 100% stenosed . 100% chronic total occlusion of RPDA and RPLV, distally filled by [id number] collaterals. Moderate LCX stenosis. Low/normal biventricular filling pressures. No pulmonary hypertension. Preserved cardiac output and cardiac index. CT: Ordered Labs: LFT's/creatinine improving PFTs: Ordered Carotids: Ordered Impression/Plan: CAD, multi vessel Acute liver failure HFrEF KASEY Ischemic cardiomyopathy Plan: Dr. Hratman called and discussed with his son who is agreeable with moving forward with cardiac MRI for evaluation as I think the CAD does not fully explain his cardiomyopathy. Case discussed with Dr. Brumfield who agrees. Will continue to follow. F/u cardiac MRI Rest of care by primary team I have discussed this with ANTWAN Witt 11/07/2024 11:44 AM * Juarez Borja PA-C - 11/07/2024 4:56 PM CDT Cardiac Surgery Consult 11/07/2024 Gabino Ocampo 1950 Gabino Ocampo is a 74 year old male with PMH of HFrEF (EF of 25%) who presented from OSH for acute liver injury c/b KASEY and concern for cardiogenic shock. Patient initially presented on 10/23 for SOB but left AMA. He returned on 10/30/2024 and was found to have AST >7000, ALT> 5800. Patient denies ETOH use. Troponins were also elevated. Patient transferred to [facility] for liver evaluation. Patient was started on dobutamine for cardiogenic shock in setting of reduced EF of 25%. Patient states that he is overwhelmed at this point and only complains of diffuse abdominal pain. He also statesthat over the past few months that he's become less active and tires easily. Patient denies having knowledge of any prior liver or heart disease or illness in the past. Cardiology was consulted on 11/02/24 after concerns for cardiogenic shock. EF is 25% from OSH. BNP 847, troponin 113, 137, 169. Lactate 2.8, 2.8. Signs of liver injury and KASEY with LFTs in the 3000s and Cr 3.85. Heart cath revealed irf + 3V CAD. I have reviewed the notes from IM and Cardiology. I have reviewed and agree with the past medical history, social history, family history, ROS, medication list, and allergies. Significant history of : Physical Exam: HEENT: mild scleral icterus Lungs: CTA B CV: Reg rate, no murmur Abdomen: Generalized TTP at all quadrants Ext: +1 edema at BLE Skin: Warm and dry Neuro: AO x3, no deficits I have independently reviewed the following images/films: Echo: The left ventricle is moderately dilated, with severely reduced systolic function and an estimated ejection fraction of 26 % by biplane method of disks. Left ventricular wall motion is globallyhypokinetic. Right ventricle is dilated with normal systolic function. No hemodynamically significant valve disease. The aortic root at the sinus of Valsalva is borderline dilated measuring 3.7 cm wit h an index of 2.0 cm/m??. The ascending aorta is dilated measuring 4.0 cm with an index of 2.1 cm/m??. Cath: Multi-vessel coronary artery disease. 60% proximal/mid LAD tubular stenosis, ischemic by iFR 0.72. 50% distal LM stenosis. 1st RPL lesion is 100% stenosed . 100% chronic total occlusion of RPDA and RPLV, distally filled by [id number] collaterals. Moderate LCX stenosis. Low/normal biventricular filling pressures. No pulmonary hypertension. Preserved cardiac output and cardiac index. CT: Ordered Labs: LFT's/creatinine improving PFTs: Ordered Carotids: Ordered Impression/Plan: 3V CAD/Pt states that his son's José Miguel and Edgard make all of his decisions for him. Ihad a lengthy d/w with José Miguel and he will speak to rest of the family re : CABG vs PCI. Pt is not in extremis and does not require urgent revascularization at this time. He would also benefit from further medical optimization prior to CABG, however, pt is deconditioned and would most likely have a lengthy post op course to include Inpatient Rehab or SNF. I have discussed this with Dr Nessa Hartman I have spent 90 minutes reviewing charts and in the total care of the patient. Thank you very much for the opportunity to participate in the care of this patient. If I can assistin any way in the future, please do not hesitate to contact me at . Sincerely, Juarez Borja PA-C 11/07/2024 4:57 PM Cosigned by Marty Hartman MD at 11/09/2024 11:06 AM CDT Associated attestation - Marty Hartman MD - 11/09/2024 11:06 AM CDT I have reviewed the patient's medical record; I have seen and examined the patient with the ELEAZAR. I have discussed and directed the medical management/treatment and performed decision making for the patients' medical condition and take responsibility for management risk pertaining to this patient. Iagree with the findings and plan of care as documented by the ELEAZAR. I spent more than 30 minutes with this patient including examining them, evaluating their data, and formulating a plan. Patient refusing to interact with providers. He purposefully closed his eyes and ignored all providers; attempts to sternal rub him and elicit a response resulted in threats and patient stating he wants to , does not want anything done, and wants to join his in our community [facility]. I called and discussed with his son who is agreeable with moving forward with cardiac MRI for evaluation as I think the CAD does not fully explain his cardiomyopathy. Case discussed with Dr. Brumfield whoagrees. Will continue to follow. Marty (Banner) MD Minnie Cardiothoracic surgery * Do Bustillo MD - 11/06/2024 6:39 AM CDT [facility] PRE PROCEDURE H&P AND SEDATION NOTE Planned Course of Treatment/Procedure: Right and Left Heart Cath History of Present Illness: Gabino Ocampo is a 74 year old male with PMH of HFrEF (EF of 25%) who presented from OSH for acute liver injury c/b KASEY and concern for cardiogenic shock. Now weaned off of inotropes and undergoing aggressive diuresis. Tenatively planning R/LHC on 11/06. This patient's prior inpatient/outpatient H&P from last 30 days was reviewed, the patient was examined, and no change has occurred in the patient's condition since the prior H&P was completed. Heart Failure: Yes, History of Heart Failure NYHA Class lll Diastolic and Systolic Stress Test Preformed: None Medications, vital signs and labs results reviewed prior to procedure: Yes Past Medical & Surgical History Illnesses: Past Medical History[1] Past Surgical History[2] Allergies[3] General: Well-developed in NAD. HEENT: NC/AT. PERRL. Neck: Supple. No tenderness, enlargement, JVD elevated (~14). Lungs: Bibasilar rales. No respiratory distress. Heart: RRR. Abdomen: Soft. NT/ND. Ext/MS: Trace KURT, no cyanosis Neuro: A&O x3. No focal deficits noted. Skin: No obvious rashes or lesions noted. Pulses: Radial : 1+ bilateral Femoral artery: 2+ bilateral Recent Labs Component Name 11/06/24 03411/05/24 0307 11/04/24 0612 11/03/24 0046 WBC 12.1* 10.5 9.4 12.0* RBC 4.01* 3.87* 4.28* 4.20* HGB 11.7* 11.3* 12.7* 12.3* HCT 34.3* 32.2* 35.4* 34.8* MCV 85.5 83.2 82.7 82.9 MCHC 34.1 35.1 35.9 35.3 PLTCOUNT 91* 106* 110* 121* NEUTPCT - 76.0* 81.7* 90.8* LYMPHPCT - 10.0* 6.9* 2.7* NEUTABS 10.53* - - - LYMPHABS 0.61* 1.05 0.65* 0.32* BASOABS - 0.02 0.02 0.02 Recent Labs Component Name 11/06/24 0341 11/05/24 2330 11/05/24 0307 11/04/24 1303 11/04/24 0612 POTASSIUM 3.5 4.0 2.7* - 2.7* 2.7* CO2 29 29 29 BUN 52* 53* 70* - 74* 74* CREATININE 1.16 1.17* 1.46* - 1.57* 1.57* GLUCOSE 127* 147* 122* - 131* 131* CALCIUM 7.7* 7.6* 7.5* - 7.3* 7.3* ALT 722* - 1,070* - 1,580* ALKPHOS 121 - 119 - 118 AST 109* - 171* - 301* EGFR 65* 65* 50* - 45* 45* - = values in this interval not displayed. Recent Labs Component Name 11/06/24 0341 11/05/24 0307 11/04/24 0612 INR 1.3 1.5 1.6 Airway: Mallampati II (soft palate, uvula, fauces visible) ASA Class: {Class 3 - Severe Systemic Disease, Definite Functional Limitations Impression: LV Dysfunction Chest Pain Symptom Assessment: Asymptomatic (patient presents without angina or an anginal equivalent) Cardiac Instability: No Procedure Acuity Status: Urgent Sedation: Fentanyl and Versed Indication: Sedation is required to allow for performance of procedure. Monitoring: heart rate, derivatives trader, continuous pulse oximetry, frequent blood pressure checks,level of consciousness, IV access, constant attendance until patient recovered, and emergency airway equipment available. Other indicators of a difficult intubation include: Small mouth opening Patient airway and condition has been evaluated immediately prior to sedation and/or analgesia: Yes Cardiology High Risk Variables CHF - Acute on chronic systolic (congestive) heart failure and HFrEF Were these present on admission? Yes Consent: Risk, benefits and alternatives were discussed with patient and consent for procedure was obtained. Do Iwona MD 11/06/2024 6:39 AM [1] No past medical history on file. [2] No past surgical history on file. [3] No Known Allergies Cosigned by Raulito Santos MD at 11/06/2024 11:28 AM CDT * Mimi Mercado DO - 11/02/2024 3:01 AM CDT MICU History & Physical Note 11/02/2024 8:25 AM Patient: Gabino Ocampo (:1950) Room: [facility] [place][note 2] Admit Date: 11/01/2024. Hospital Day: 1 CC: Acute liver injury HPI: Gabino Ocampo is 74 year old male w/ PMH of HFrEF (EF of 25%) who presented from OSH for acute liver injury c/b KASEY and concern for cardiogenic shock. Patient initially presented on 10/23 for SOB but left AMA. He returned on 10/30/2024 and was found to have AST >7000, ALT> 5800. Patient denies ETOH use. Troponins were also elevated. Patient transferred to [facility] for liver team. Prior to transfer patient was started on NAC for liver injury and dobutamine for concern for cardiogenic shock in setting of reduced EF of 25%. Upon arrival, patient Aox3 (person, place and time) and denies any acute pain. He does report some SOB which upon further evaluation is described as nasal congestion. Patient denies having knowledge of any liver disease or illness in the past. Patient confirmed his code status as DNR-DNI. He reports taking a number of supplements but unable to recall all of them. He denies taking tylenol but per chart review it was reported that he was taking tylenol. Further history should be obtained with son as patient is a poor historian. Past Medical History Past Medical History[1] Past Surgical History Past Surgical History[2] Social History Social History[3] Family History Family History[4] Allergies Allergies[5] Home Medications Current Outpatient Medications Medication Instructions furosemide (LASIX) 40 mg, Oral, DAILY lactulose (Chronulac;Enulose) 10 GM/15ML solution 15 mL, 3 TIMES DAILY metoprolol succinate XL 24hr (TOPROL XL) 25 mg, DAILY metoprolol tartrate IR (LOPRESSOR) 25 mg, Oral, 2 TIMES DAILY sodium bicarbonate 1,300 mg, 3 TIMES DAILY tamsulosin (FLOMAX) 0.4 mg, DAILY torsemide (DEMADEX) 20 mg, EVERY MORNING Review of Systems positives are in bold; negatives are in italics Constitutional: fevers, chills, sweats, fatigue, weight loss/gain, chronic pain HEENT: head trauma, vision/hearing/voice changes, eye/ear/throat pain, nasal discharge, dysphagia, sores, ulcers, sinus pain Respiratory: cough, hemoptysis, sputum, PETE, dyspnea at rest, PND, wheezing Cardiovascular: chest pain/discomfort, palpitations, lower extremity edema, calf/leg pain Gastrointestinal: nausea/vomiting, diarrhea, constipation, melena, abdominal pain Genitourinary: dysuria, urgency, frequency, incontinence, hematuria Integument: rash, ulcers, itching Hematologic/lymphatic: easy bruising, bleeding Musculoskeletal: myalgias, arthralgias Neurological: headaches, dizziness, numbness, tingling, seizures Behavioral/Psych: anxiety, depression, memory problems Endocrine: polyuria, polydipsia, polyphagia, heat/cold intolerance Objective: Vitals: 11/02/24 0400 11/02/24 0500 11/02/24 0515 11/02/24 0600 BP: 111/71 133/54 103/69 109/67 Pulse: 90 98 98 91 Resp: 12 Temp: 98.7 ??F (37.1 ??C) SpO2: 97% 99% 96% 96% Weight: Height: Intake/Output Summary (Last 24 hours) at 11/02/2024 0825 Last data filed at 11/02/2024 0424 Gross per 24 hour Intake 135.45 ml Output 750 ml Net -614.55 ml Physical Exam General - AAOx3 NAD, afebrile, non cachectic HEENT - NC/AT, EOMI, clear conjunctivae, throat without erythema or exudate, moist mucous membranes Neck - Supple, no LAD, no JVD Chest - CTAB no crackles or wheezes bilaterally CV - RRR no murmurs, radial and DP pulses 2/4, good capillary refill Abdomen - Soft, NT/ND, +BS, no organomegaly Musculoskeletal - Moves all four extremities Extremities - No c/c/e Skin - No rashes, lesions or jaundice Neurologic - A&O x 3, no focal neurological deficits Psych - Appropriate mood and affect Labs: CBC: Recent Labs Component Name 11/01/242322 WBC 14.0* HGB 12.6* HCT 36.3* BMP: Recent Labs Component Name 11/01/242322 NA 136 CL 94* CO2 24 BUN 95* CREATININE 3.85* CALCIUM 6.5* PHOS 4.4 Hepatic: Recent Labs Component Name 11/01/242322 ALT 3,970* AST 3,174* TBILI 1.6* PROT 5.2* ALB 2.8* ALKPHOS 115 Coagulation: Recent Labs Component Name 11/01/242322 PT 29.5* INR 2.9 Cardiac Markers: No results for input(s): CK, CKTOTAL, CKMB, CKMBUL, CKMBNGML, TROPONIN, TROPONINI, TROPONINT in the last 62494 hours. ABGs: No results for input(s): PHART, PO2ART, WSJ9HTG, BEART in the last 55843 hours. Micro: Microbiology Results (Displays last 21 days for this encounter ONLY) Procedure Component Value - Date/Time RESPIRATORY PANEL WITH SARS-COV-2 BY PCR ([facility]) [[id number]] Collected: 11/02/24 0818 Lab Status: No result Specimen: Microbiology from Nasopharyngeal Imaging: CT Head Wo Contrast Result Date: 11/01/2024 IMPRESSION: 1. No acute intracranial process. 2. Volume loss and small vessel disease. DICTATION LOCATION: [address] XR Chest 1Vw Result Date: 11/01/2024 IMPRESSION: Bilateral pulmonary nodules are not clearly changed Cardiomegaly and pulmonary vascularcongestion Tortuous calcified aortic arch. DICTATION LOCATION: [address] US Abdomen Limited Result Date: 10/31/2024 IMPRESSION: 1. Gallbladder sludge without other evidence of acute cholecystitis. DICTATION LOCATION: [facility] US Kidneys W Bladder Result Date: 10/31/2024 IMPRESSION: 1. There appears to be a solid hypoechoic left renal mass. Consider further evaluation with either a without and with contrast CT urogram or without and with contrast abdominal MRI. 2. Subcentimeter left renal cyst. DICTATION LOCATION: [facility] Assessment: Hepatic trauma, initial encounter (POA: Unknown) KASEY (acute kidney injury) (POA: Unknown) Other specified anemias (POA: Unknown) PLAN: Neurological: #Encephalopathy, improving - Hepatic vs infectious Plan - delirium precautions - Hepatic work-up as below - Consider further infectious work-up and antibiotics Cardiovascular: #concern for cardiogenic shock #HFrEF (EF of 25 %) - Noted that patient is on metoprolol 25mg and torsemide but patient unable to recall if he takes these medications. Per chart review appears that patient was recently started on these meds by PCP inthe last wek Plan: - Hold b-elizabeth in setting of shock - Continue dobutamine as started at outside hospital MAP goal - >65 mmHg - consider cardiology consult - Consider repeat echo (done at OSH) or see if we can get results #Elevated Troponin - Patient denies acute chest pain Plan - EKG ordered - trend trops until peak Pulmonary: SpO2 goal - >92 #Dyspnea - Sating upper 90s on 1L NC - Dyspnea described as more congestion Plan - Flonase, mucinex - CXR ordered - In setting of leukocytosis, if concern for respiratory infection consider Ceftriaxone and azithromycin GI: #Acute liver injury - Started on NAC at outside hospital - Injury cause unknown at this time Plan - Liver injury work-up including acetaminophen, hepatitis, smooth muscle AB, mitochondrial antibody, HIV ordered - Continue NAC as started by outside hospital - Abdomen ultrasound with doppler ordered - Consult GI in the AM Renal: #KASEY - Hepatorenal vs pre-renal Plan - Consult nephro in AM - UA ordered Endocrine: BGM goal 140-180 mg/dL ID: #Leukocytosis - Patient afebrile Plan - Consider broad spectrum antibiotics and infectious work-up with [facility] Heme/Onc: #Anemia - No sign of GI bleed at this time Plan - Transfuse for hgb <7, plt <10 : #Urinary Retention #BPH - came from osh with colin, placed for urinary retention Plan - Continue at home tamsulosin 0.4mg - trial colin removal, bladder scans q6h FEN: -Monitor electrolytes QD, Replace K<4, Mg<2, Phos<3 Lines: Type: PIV Day number: 1 Prophylaxis: Aspiration precautions w/ HOB elevation by 30 degrees GI prophyalxis w/ DVT prophyalxis w/ SCDs, Heparin Diet: NPO for ultrasound Activity: As tolerated Disposition: ICU Monitoring None Code Status: DNR-DNI Mimi Mercado DO PGY- 2 Internal Medicine [1] No past medical history on file. [2] No past surgical history on file. [3] Social History Tobacco Use Smoking status: Former Types: Cigarettes Smokeless tobacco: Never Vaping Use Vaping status: Never Used Substance Use Topics Alcohol use: Not Currently Drug use: Never [4] No family history on file. [5] No Known Allergies Cosigned by Lamberto Singh MD at 11/02/2024 7:33 PM CDT Associated attestation - Lamberto Singh MD - 11/02/2024 7:33 PM CDT MICU Attending Note (Pt seen with the MICU Team on 11/02/24 at 1000 hrs. I agree with their assessment and plans except as noted below.) The patient is a 74 y/o man who presented to an OSH with SOB on 10/30/24. He was found to have markedly elevated transaminases and an KASEY. An Echo revealed and EF of 25%. He developed shock and was started on Dobutamine. He was transferred to [facility] on 11/02/24. Currently, he is complaining of constipation and a distended abdomen. PMHx: - Multiple supplement usage Hepatic trauma, initial encounter (POA: Unknown) KASEY (acute kidney injury) (POA: Unknown) Other specified anemias (POA: Unknown) Leukocytosis (leucocytosis) (POA: Unknown) Urinary retention (POA: Unknown) Heart failure with reduced ejection fraction (HCC) (POA: Unknown) Cardiogenic shock (HCC) (POA: Unknown) Elevated troponin (POA: Unknown) Meds: Reviewed. Exam: BP 102/75 Pulse 104 Temp 98.4 ??F (36.9 ??C) (Bladder) Resp 23 Ht 1.676 m (5' 6) Wt 73.1kg (161 lb 2.5 oz) SpO2 93% General: Alert, cooperative, mild distress secondary to abdominal pain. Head: Normocephalic, without obvious abnormality, atraumatic. Eyes: Conjunctivae/corneas clear. EOMs intact. Ears: Normal TMs and external ear canals both ears. Nose: Nares normal. Septum midline. Mucosa normal. No drainage or sinus tenderness. Throat: Lips, mucosa, and tongue normal. Teeth and gums normal. Neck: No BRUNO, JVD Lungs: clear to auscultation Chest wall: No tenderness or deformity. Heart: Regular rate and rhythm, S1, S2 normal, no murmur, click, rub or gallop. Abdomen: Distended and firm. Extremities: No clubbing cyanosis or edema. Skin: Skin color, texture, turgor normal. No rashes or lesions Data: Reviewed. A/P: Neuro: Encephalopathy. Seems to have resolved. Resp: Hypoxic respiratory failure. I suspect this represents some degree of pulmonary edema. Will follow with diuresis. Restrictive physiology given his distended abdomen may be playing a role. CV: HFrEF (new diagnosis). Will continue Dobutamine for now. Will diurese. Will obtain BNP and Echo. Will have Cardiology opine. GI: Constipation/ileus. Will pursue disimpaction and enema. Low threshold to place NG to suction. Follow abdominal films. Markedly elevated transaminases. I suspect this represents passive congestionof the liver secondary to CHF. Given his use of multiple supplements, toxic injury is possible. Will continue NAC. Will obtain RUQ U/S. Will have Hepatology evaluate. Renal: KASEY. I suspect cardiorenal syndrome. Check urine lytes. Follow with diuresis. BPH. Continue Flomax and replace Colin. FEN: NPO for now. Follow accuchecks. ID: Obtain blood Cxs. Heme: Coagulopathy. Provide Vit K. Prophy: On Heparin sq. On PPI. Critical Care Time: 30 Mins From 1000 To 1030. Lamberto Singh M.D. [facility] [place] [facility] Division of Pulmonary, Critical Care and Sleep Medicine [facility] documented in this encounter Procedure Notes * Callum Pepe RCP - 11/17/2024 6:35 AM CDT Images from the original note were not included. Patient on Room Air (Device/FiO2 or liter flow/Settings/etc) during study. Results uploaded to [facility] shared with Donnie, Pulmonary. * Andres Turner MD - 11/08/2024 9:37 AM CDTAssociated Order(s): BEDSIDE SPIROMETRY Images from the original note were not included. Cosigned by Linda Tran DO at 11/12/2024 3:08 PM CDT documented in this encounter Consult Notes * Lupe Giraldo RD/KERI - 11/18/2024 10:10 AM CDTAssociated Order(s): IP CONSULT TO NUTRITIONAL SERV CLINICAL NUTRITION BRIEF Recommendations to Physician: Continue with current diet recommendations. + Encourage intake of meals and nutrition supplements. Comments: Consulted fro [facility]. Pt is on Cardiac diet, per chart eating 25- 70%, average of 48.3%.RD attempted to provide pt with Cardiac diet education, pt politely asked RD to leave handout at bedside for him to review later. Pt declined nutrition supplements. Labs reviewed, noted low sodium (129), elevated glucose (121), low calcium (7.7), low magnesium (1.5). Last BM 11/18. RD will follow up per clinical nutrition guidelines. Med/Surg History and Clinical Diagnoses: 74 year old male w/ PMH of HFrEF (EF of 25%) who presentedfrom OSH for acute liver injury c/b KASEY and concern for cardiogenic shock. Patient initially presented on 10/23 for SOB but left AMA. He returned on 10/30/2024 and was found to have AST >7000, ALT> 5800. Height: 167.6 cm (5' 6) Body mass index is 22.79 kg/m??. BMI Range: Normal Wt Readings from Last 3 Encounters: 11/18/24 64 kg (141 lb 3.2 oz) Current diet order: Cardiac Standard;Fluid Restriction (1800 mL) Food Allergies: No known food allergies P.O.intake for past 48 hours: Percent Meal Eaten (%) Av.3 % Min: 25 % Max: 70 %. Skin/Wound: exceptions per nursing (bruising, redness RLE) Stools: Unmeasured Stool Occurrence: 1 (11/18/24 0230) Stool Appearance : Loose;Soft (11/18/24 0230) Labs reviewed. Medications noted. Nutrition recommendation: agree with current nutrition order Diet Education: Education needed: Cardiac Diet Education Provided: Handout Provided Expected level of compliance: Fair RD to follow per clinical nutrition guidelines. Lupe Giraldo RD/KERI 11/18/2024 10:[address] Weekend Pager: * Magen Elena - 11/17/2024 1:49 PM CDTAssociated Order(s): IP CONSULT TO IHN COORDINATOR PCP appointment scheduled at [facility] for November 29, 2024 at 9:[address] Barros Patient referred for assistance with a PCP appointment. This coordinator will update the patient and the chart as applicable * Hermelindo Zamudio - 11/02/2024 4:56 PM CDTAssociated Order(s): IP CONSULT TO CARDIOLOGY [facility] Consultation Patient: Gabino Ocampo Date of Admission: 11/01/2024 LOS: 1 Requesting physician: MICU Reason for consult: C/f cardiogenic shock History of Presenting Illness Gabino Ocampo is a 74 year old male with PMH of HFrEF (EF of 25%) who presented from OSH for acute liver injury c/b KASEY and concern for cardiogenic shock. Patient initially presented on 10/23 for SOB but left AMA. He returned on 10/30/2024 and was found to have AST >7000, ALT> 5800. Patient denies ETOH use. Troponins were also elevated. Patient transferred to [facility] for liver team. Prior to transfer patient was started on NAC for liver injury and dobutamine for concern for cardiogenic shock in setting of reduced EF of 25%. Upon arrival, patient Aox3 (person, place and time) and denies any acute pain. He does report some SOB which upon further evaluation is described as nasal congestion. Patient denies having knowledge of any liver disease or illness in the past. Patient confirmed his code status as DNR-DNI. He reports taking a number of supplements but unable to recall all of them. He denies taking tylenol but per chart review it was reported that he was taking tylenol. Cardiology consulted 11/02 after concerns for cardiogenic shock. Per chart review patient has reported EF of 25% from OSH. His son states that patient has been feeling short of breath for 1.5 weeks, however the somnolence is new this admission. BNP 847, troponin 113, 137, 169. Lactate 2.8, 2.8. Signs of liver injury and KASEY with LFTs in the 3000s and Cr 3.85. A 12 point review of systems was negative except as above. Past Medical History has no past medical history on file. Past Surgical History has no past surgical history on file. Family History family history is not on file. Social History reports that he has quit smoking. His smoking use included cigarettes. He has never used smokeless tobacco. He reports that he does not currently use alcohol. He reports that he does not use drugs. Allergies Allergies[1] Home Medications Current Outpatient Medications Medication Instructions furosemide (LASIX) 40 mg, Oral, DAILY lactulose (Chronulac;Enulose) 10 GM/15ML solution 15 mL, 3 TIMES DAILY metoprolol succinate XL 24hr (TOPROL XL) 25 mg, DAILY metoprolol tartrate IR (LOPRESSOR) 25 mg, Oral, 2 TIMES DAILY sodium bicarbonate 1,300 mg, 3 TIMES DAILY tamsulosin (FLOMAX) 0.4 mg, DAILY torsemide (DEMADEX) 20 mg, EVERY MORNING Objective BP 102/75 Pulse 104 Temp 98.4 ??F (36.9 ??C) (Bladder) Resp 23 Ht 1.676 m (5' 6) Wt 73.1kg (161 lb 2.5 oz) SpO2 93% General appearance: Somnolent, arousable. Chest: No wheezes or crackles Heart: Regular rate and rhythm. S1, S2 normal. JVD is present. Abdomen: Soft. Bowel sounds normal. Extremities: Trade LE edema bilateral Skin: Extremities slightly cool to touch I have reviewed all labs, imaging, and diagnostics. Assessment and Plan # Cardiogenic shock # Shock liver # KASEY # Newly diagnosed HFrEF, acute on chronic At this moment patient is showing signs of cardiogenic shock, given low pressures needing dobutamine, KASEY, liver injury, elevated lactate, in the setting of HFrEF, with slightly cool extremities and probable JVD. Patient will need strong diuresis as well as afterload reduction. Will hold GDMT for now. Recommendations: - Start IV Lasix 80 mg TID - Give 1x 500 mg Diuril now - Continue dobutamine at 5 mcg/kg/min - Monitor labs (lactate, renal function) q6 hours - Recommend placing CVC for monitoring VBGs q6hrs to calculate Daniela CO, transducing CVP - For now we will defer GDMT given low blood pressures and KASEY - Monitor on telemetry - Keep K>4, Mg>2 at all times - Obtain TSH, ferritin levels, HIV, A1c, and lipid panel We will follow. To be staffed with Dr. Anderson. Please see attending attestation for any changes to recommendations. Hermelindo Zamudio MS4 [facility] [1] No Known Allergies Cosigned by Tracey Anderson MD at 11/03/2024 4:55 PM CDT Associated attestation - Tracey Anderson MD - 11/03/2024 4:55 PM CDT ATTENDING ATTESTATION NOTE I have seen and examined the patient with the resident and I agree with the findings and plan of care as documented by the resident. HPI: 74 year old male who reports that for a few weeks he had sinus problems, then abodominal pain and then SOB - now with acute HF and shock liver. Patient transferred from OSH when he was started on SILK SCREEN CUTTER due to Echo with reduced EF and shock liverand concern for cardiogenic shock. LFT improving. Cr also improving. Patient takes many OTC supplements. No prior hx of HFrEF until now. No prior hx of liver disease either. ON exam, warm extremities, mild edema, elevated JVD, normal heart sounds, no significant murmurs. New onset acute heart failure with reduced EF and volume overload Cardiogenic shock Shock liver KASEY Symptoms started in sinusitis which patient has often. Then also abdominal pain end edema and SOB. Suspect shock liver related to cardiac dysfunction however, presentation somewhat atypical. Question if CMY is a stress response to another primary insult. For CMY work, please check TSH, HIV. Ferritin high, get Fe Panel (likely ferritin is acute phase reactant). Eventually when renal function improves will need ischemic eval. Prior to SILK SCREEN CUTTER BP was normal (10/31 BPs BP: 125/89 119/83 (!) 130/96) which seems unusual for development of shock liver related to cardiogenic shock. - agree with GI with work for up for other primary cause of liver injury. - patient takes many OTC supplements, not clear if this contributed to any toxicity For now continue with currently therapy: - hydal/isordil - IV diuresis - SILK SCREEN CUTTER Rest of plan as per the resident note. Date of Service: 11/03/24 Tracey Anderson MD * Demi Dominguez MD - 11/02/2024 9:50 AM CDT GASTROENTEROLOGY CONSULT Gabino Ocampo Age: [age] year old Date of : 1950 Date of Admission: 11/01/2024 Reason for Consult: acute liver injury Requesting Team: MICU Subjective: History of Present Illness: Gabino Ocampo is a 74 year old male with a history of HFrEF (25%) who was admitted to OSH with SOB, abdominal distention and fatigue on 10/31/24. Noted to have presented with similar symptoms about1 week prior, but left AMA. He was started on lasix and metoprolol for CHF by PCP after leaving the hospital the first time. Patient reports no other changes to medications. States he takes between 15-20 over the counter supplements per day. Some of which include one a day, fish oil, vitamin D, fiber therapy, calcium, mag, zinc, reseveratrol, Ashwaganda, and saw palmetto. States no particular reason he takes all these, he has just been doing if for years. Reports no previous abdominal surgeries. No tylenol use. States takes aleve if needed, but not very often. Reports he lives alone and cares for himself. On admission at the OSH he was started on dobutamine. He was started on NAC at the OSH. Received vitamin k 10 mg IV. UA WBC 26-50, bacteria +1, +yeast, 6-10. Started on 2G rocephin Q24 on 11/01. Labs on 10/31/24: AST >7000 ALT 5883 Alk phos 138 T. Bili 2.1. Creatinine 4.79 INR 3.3. Tylenol <3.0. On imaging he was noted to have cardiomegaly, pulm vascular congestion. US abdomen on 10/31: No ascites present. Liver is free of discrete mass or biliary dilation. CBD notdilated. At OSH they noted last bowel movement 11/01-pt reports no bm in 2 weeks. On my evaluation pt was alert and oriented with family at bedside. He is on 3L supplemental oxygen.Blood pressure of 112/71. Continued on NAC and dobutamine. WBC 14.0, Plts 124, Hgb 12.6. INR 2.9. Alk phos 115, AST 3174, ALT 3970, T. Bili 1.6, Ammonia 80, creatinine 3.85. albumin 2.8. Hep A Ab IgM non-reactive, Hep B c IgM, Hep B s AB, Hep B s antigen, and Hep C Ab non-reactive. Denies nausea/vomiting, hematemesis, coffee ground emesis, melena, hematochezia, heartburn. Denies constitutional symptoms such as fevers and chills. Denies personal and family history of GI or liverdisease. Past Medical History: Problem List[1] Past Medical History[2] Past Surgical History: Past Surgical History[3] Medications: Medications[4] Medications[5] Allergies: Allergies[6] Social History: Social History Tobacco Use Smoking status: Former Types: Cigarettes Smokeless tobacco: Never Substance Use Topics Alcohol use: Not Currently Family History: family history is not on file. Review of Systems: General: no fever, chills, weight loss, (+) fatigue HEENT: no acute changes in vision or hearing Respiratory: (+) shortness of breath, no cough, sputum production, hemoptysis Cardiovascular: no chest pain, palpitations, orthopnea Gastrointestinal: as per HPI Genitourinary: no dysuria, hematuria MSK: no extremity edema, myalgia. Neuro: no dizziness, headache Skin: no new skin rashes or lesions. Objective: Physical Exam: BP 112/71 Pulse 93 Temp 97.9 ??F (36.6 ??C) (Oral) Resp 25 Ht 1.676 m (5' 6) Wt 73.1 kg (161 lb 2.5 oz) SpO2 98% Wt Readings from Last 5 Encounters: 11/01/24 73.1 kg (161 lb 2.5 oz) General: pleasant, in no distress HEENT: conjunctivae/corneas clear. Moist mucous membranes. Neck: supple Lungs: clear to auscultation bilaterally, no wheezes Heart: Normal rate and regular rhythm, no appreciable murmurs Abdomen: soft, non-tender, distended, bowel sounds normal, no palpable masses Rectal: deferred Extremities: no edema Neuro: alert, cooperative, no gross focal signs, no asterixis, A&O x 3 Labs: Recent Labs Component Name 11/01/24 2323 WBC 14.0* HGB 12.6* MCV 85.0 INR 2.9 Recent Labs Component Name 11/01/24 2323 NA 136 CL 94* CO2 24 BUN 95* CREATININE 3.85* Recent Labs Component Name 11/01/24 2323 AST 3,174* ALT 3,970* ALKPHOS 115 TBILI 1.6* ALB 2.8* Imaging: CT Head Wo Contrast Result Date: 11/01/2024 IMPRESSION: 1. No acute intracranial process. 2. Volume loss and small vessel disease. DICTATION LOCATION: [address] XR Chest 1Vw Result Date: 11/01/2024 IMPRESSION: Bilateral pulmonary nodules are not clearly changed Cardiomegaly and pulmonary vascularcongestion Tortuous calcified aortic arch. DICTATION LOCATION: [address] US Abdomen Limited Result Date: 10/31/2024 IMPRESSION: 1. Gallbladder sludge without other evidence of acute cholecystitis. DICTATION LOCATION: [facility] US Kidneys W Bladder Result Date: 10/31/2024 IMPRESSION: 1. There appears to be a solid hypoechoic left renal mass. Consider further evaluation with either a without and with contrast CT urogram or without and with contrast abdominal MRI. 2. Subcentimeter left renal cyst. DICTATION LOCATION: [facility] Assessment: Gabino Ocampo is a 74 year old male with a history of HFeEF of 25% who was admitted to OSH with SOB, abdominal distention and fatigue on 10/31/24. Acute liver injury (Drug induced vs ischemic) Significant supplement use Abdominal distension-Constipation On my evaluation pt was alert and oriented. No encephalopathy. WBC 14.0, Plts 124, Hgb 12.6. INR 2.9. AT OSH ALT/AST >7000 on 10/31. On 11/02: Alk phos 115, AST 3174, ALT 3970, T. Bili 1.6, Ammonia 80, creatinine 3.85. albumin 2.8. Hep A Ab IgM non-reactive, Hep B c IgM, Hep B s AB, Hep B s antigen, and Hep C Ab non-reactive. Elevated liver enzymes could be secondary to ischemia, but if blood pressures are now normalized would expect AST/ALT to improve rapidly. Given ongoing elevation cause could be secondary to some supplement use. Brooks: Likelihood score B. Unfortunately, patient reports to PCP for 10 years prior to this admission, so we are unsure if liver enzymes have been elevated in the past. Recommendations: Pending abdominal ultrasound with doppler Follow-up KUB. Order: Antimitochondrial antibodies (AMA), Antinuclear antibodies (MEREDITH), Antismooth muscle antibodies (ASMA/F-actin), ANCA panel, anti-LKM1 antibodies, IgG, Ceruloplasmin plasma levels, Serum Alpha-1antitrypsin (AAT) levels Discontinue all over the counter supplements. Would d/c lactulose as it can make abdominal distension and bloating worse. Recommend dulcolax 10 mg po daily. Tap water enemas twice daily. Maintain normal lytes (K >4, mag>2, normal phos and normal Ca) q 2 hr turning in bed, PT/OT Avoid narcotics, if able Continue serial abdominal exams. Recommend daily CBC, CMP, and INR. Please check INR today. Patient and above recommendations was discussed with GI attending, Dr. Drummond, as well as the primary team. Thank you for allowing us to participate in the care of this patient. We will continue to follow this patient with you. Please do not hesitate to contact us with further questions. Demi Dominguez MD Gastroenterology & Hepatology Fellow [facility] [1] Patient Active Problem List: Hepatic trauma, initial encounter KASEY (acute kidney injury) Other specified anemias Leukocytosis (leucocytosis) Urinary retention Heart failure with reduced ejection fraction (HCC) Cardiogenic shock (HCC) Elevated troponin [2] No past medical history on file. [3] No past surgical history on file. [4] Medications Prior to Admission Medication Sig Dispense Refill furosemide (Lasix) 40 MG tablet Take 1 (one) tablet by mouth once daily lactulose (Chronulac;Enulose) 10 GM/15ML solution Take 15 mL by mouth 3 times daily metoprolol succinate XL 24hr (Toprol XL) 25 MG tablet Take 1 (one) tablet by mouth once daily metoprolol tartrate IR (Lopressor) 25 MG tablet Take 1 (one) tablet by mouth 2 times daily sodium bicarbonate 650 MG tablet Take 2 (two) tablets by mouth 3 times daily tamsulosin (Flomax) 0.4 MG capsule Take 1 (one) capsule by mouth once daily torsemide (Demadex) 20 MG tablet Take 1 (one) tablet by mouth every morning [5] Current Facility-Administered Medications Medication 0.9% NaCl injection 3 mL And 0.9% NaCl injection 1-10 mL acetylcysteine (Acetadote) 30,000 mg in dextrose 5 % 1,150 mL infusion DOBUTamine (Dobutrex) 1,000 mg in 250 mL infusion premix fluticasone propionate (Flonase) nasal spray 2 spray heparin injection 5,000 Units lactulose (Chronulac) solution 20 g mineral oil enema 1 enema sodium bicarbonate tablet 650 mg tamsulosin (Flomax) capsule 0.4 mg [6] No Known Allergies Cosigned by Mukul Drummond MD at 11/04/2024 10:26 PM CDT Associated attestation - Mukul Drummond MD - 11/04/2024 10:26 PM CDT GI & Hepatology Attending Note I have personally seen and examined this patient with the trainee on 11/02/2024. I agree with the assessment and plan detailed in this note MUKUL DRUMMOND MD 11/04/2024 10:23 PM documented in this encounter OR Notes * Brief Op Note - Gillian Diaz MD - 11/17/2024 11:50 AM CDT [facility] BRIEF POST PROCEDURE AND SEDATION NOTE Name: Gabino Ocampo : 1950 Gabino Ocampo is a 74 year old male born on 1950 Pre-Op Diagnosis: Multivessel CAD Post-Op Diagnosis: Multivessel CAD FELLOW / POULTRY BREEDER: Gillian Link MD ATTENDING PHYSICIAN: Dr. Raulito Santos MD ACCESS SITE(S): left femoral artery and left femoral vein EBL: 15 cc Type of anesthesia: Procedure was done under conscious sedation using fentany and versed. 1% lidocaine was administered subcutaneously. BRIEF PROCEDURE NOTE: Left heart catheterization and percutaneous coronary intervention of proximal mid RCA, mid and distal left main, and proximal to mid LAD done via left femoral arterial approach. Right heart catheterization done via left femoral venous access.. Procedure was supported by Impella CP which was removedafter completion of procedure. 14 Tanzanian sheath was placed in left femoral artery. 7 Tanzanian sheath was placed left femoral vein. Towards the end the procedure both arterial and venous access site were closed by a combination of 6 Tanzanian Angio-Seal and Perclose device. Patient received loading dose of ticagrelor during the procedure Patient needs to on strict bedrest for 6 hours postprocedure. Monitoring: Monitoring consisted of: heart rate, derivatives trader, continuous pulse oximetry, continuous capnometry, frequent blood pressure checks, level of consciousness, IV access, constant attendance by RN until patient recovered and constant attendance until patient stable. Response: Vital signs stable, airway patent and O2 saturations greater than 92%. Patient Status Post Procedure: Hemodynamically and neurologically stable. Complications: none Gillian Link MD PGY 7 Intervention Supervisor [employer] Department [facility]. 11/17/2024 * Brief Op Note - Do Bustillo MD - 11/06/2024 9:39 AM CDT Brief Op Note Procedure: Left and right heart cath Patient Name: Gabino Ocampo Date of Service: 11/06/2024 Pre-Op Diagnosis: Heart failure with reduced ejection fraction (HCC) [I50.20] Post-Op Diagnosis: Multivessel coronary artery disease, ischemic cardiomyopathy Surgeons and Role: * Raulito Santos MD - Primary * Jewell Romero DO - Assisting * Do Bustillo MD - Assisting * Gillian Diaz MD - Assisting Anesthesia Type: Fentanyl, versed Complications: none Findings: - Multivessel CAD - Ischemic cardiomyopathy - PCWP 12 EBL: minimal blood loss Do Iwona MD Cosigned by Raulito Santos MD at 11/06/2024 11:28 AM CDT documented in this encounter Miscellaneous Notes * Clinical References VINCENT - Hugo De La Cruz APRN-CNP - 11/19/2024 8:11 AM CDT Images from the original note were not included. Understanding Ejection Fraction - Video Watch this to learn what ejection fraction is and how it will be monitored throughout your treatment for heart failure. To view the video go to this web address: [email or web address] Or, scan this QR code with your smart phone ?? [facility] * Clinical References Hugo Rivas APRN-CNP - 11/19/2024 8:11 AM CDT Images from the original note were not included. [id number] What Is Heart Failure? The heart is a muscle that pumps oxygen-rich blood to all parts of the body. When you have heart failure, the heart is not able to pump as well as it should. Blood and fluid may back up into the lungs, and some parts of the body don?t get enough oxygen-rich blood to work normally. When you have heart failure With heart failure, not enough oxygen-rich blood leaves the heart with each beat. There are 2 typesof heart failure. Both affect how well the left ventricles can pump blood. You may have one or bothtypes. Systolic heart failure. The heart muscle becomes weak and enlarged. It can?t pump enough oxygen-rich blood forward to the rest of the body when the ventricles contract. The measurement of how much blood your heart pumps out with each beat is called ejection fraction. In systolic heart failure, the ejection fraction is lower than normal. This can cause blood to back up into the lungs and cause shortness of breath and eventually ankle swelling (edema). This is also known as heart failure with reduced ejection fraction (HFrEF), heart failure with mildly reduced ejection fraction (HFmrEF), or heart failure with improved ejection fraction (HFimpEF). Diastolic heart failure. The heart muscle becomes stiff. It doesn?t relax normally between contractions. This keeps the ventricles from filling with blood as they should. Ejection fraction is often in the normal range. This can still lead to the backup of blood into the body and affect the organs such as the liver. This is also called heart failure with preserved ejection fraction, or HFpEF. Recognizing heart failure symptoms When you have heart failure, you need to pay close attention to your body and how you feel, every single day. That way, if a problem occurs, you can get help before it becomes too severe. You'll needto watch for changes in your symptoms. As long as symptoms stay about the same from one day to the next, your heart failure is stable. But if symptoms start to get worse, it's time to take action. Signs and symptoms of worsening heart failure include: ? Rapid weight gain from fluid buildup ? Shortness of breath, especially when lying down flat ? Fast heart rate ? Cough that won't go away ? Swelling, especially in the feet (edema), legs, or abdomen ? Tiredness (fatigue) ? Nausea or loss of appetite How heart failure affects your body When the heart doesn't pump enough blood, hormones are sent to increase the amount of work the heart does. Some hormones make the heart grow larger. Others tell the heart to pump faster. As a result,the heart may pump more blood at first, but it can't keep up with the ongoing demands. So, the heart muscle becomes even weaker. Over time, even less blood is pumped through the heart. This leads to problems throughout the body as organs start to feel the effects of a long-term lack of oxygen. If not treated, over time this can cause problems with your lungs, liver, and kidneys. Long-term (chronic) leg swelling (edema) can also cause skin changes and breakdown. A weak heart itself can eventually cause a severe decline in health and possible if left untreated. What is ejection fraction? Left ventricular ejection fraction (LVEF) is a measurement of how well your heart pumps blood. It measures how much blood in the heart's ventricle is pumped out (ejected) with each heartbeat. This ismeasured to help diagnose heart failure. A healthy heart pumps at least half of the blood from the ventricles with each beat. This means a normal ejection fraction is around 50% to 70%. There are 4 groupings of HF measured through LVEF. ? HFrEF. LVEF is 40% or less. (systolic HF) ? HFmrEF. LVEF is 41% to 49% with higher filling pressure in the left ventricle. (systolic HF) ? HFimpEF. A past LVEF less than 40% and a follow-up amount of LVEF greater than 40%. (systolic HF) ? HFpEF. LVEF is 50% or more with higher filling pressure in the left ventricle. (diastolic HF) Your healthcare provider will calculate ejection fraction from an echocardiogram or other tests. Your healthcare provider can talk with you about treatment options and how to improve your EF. My ejection fraction Date: Ejection fraction: Test used: How daily issues affect your health Many things in your daily life impact your health. This can include transportation, money problems,housing, access to food, and registered nurse maternal child. If you can?t get to medical appointments, you may not receive the care you need. When money is tight, it may be difficult to pay for medicines. And living farfrom a grocery store can make it hard to buy healthy food. If you have concerns in any of these or other areas, talk with your healthcare team. They may know of local resources to assist you. Or they may have a staff person who can help. Last Reviewed Date: 2023 00:00:00 ?? [id number] [employer] All rights reserved. This information is not intended as a substitute for professional medical care. Always follow your healthcare professional's instructions. * Clinical References AVS - Hugo De La Cruz APRN-CNP - 11/19/2024 8:11 AM CDT Images from the original note were not included. [id number] Understanding Cardiogenic Shock What is cardiogenic shock? Cardiogenic shock is a type of shock. Shock occurs when the body?s vital organs don't get enough oxygen-carrying blood. Without enough oxygen to fuel its parts, the body can?t work correctly and may occur. With cardiogenic shock, the heart is not able to pump enough blood to the brain, other vital organs, and throughout the body. Shock can happen in several other ways, such as from: ? Blood loss (hypovolemic shock) ? Overwhelming infection (septic shock) ? Severe allergic reaction (anaphylactic shock) ? Injury to the spinal cord (neurogenic shock) All forms of shock are considered a life-threatening emergency and need to be treated right away. What causes cardiogenic shock? Cardiogenic shock is most often caused by a heart attack due to coronary artery disease. But it canoccur from any health problem that disrupts blood flow to and from the heart. These include: ? Irregular heartbeat ? Heart failure ? Heart defects ? Valve disease ? Blood clot in the lungs ? Injury to the chest ? Internal bleeding ? Overdose from medicine or an illegal drug What are the symptoms of cardiogenic shock? The symptoms of cardiogenic shock can vary from person to person. The condition often starts with adrop in blood pressure, causing these symptoms: ? Confusion ? Fast breathing and severe shortness of breath ? Weak or irregular pulse ? Bulging veins in the neck ? Dizziness ? Nausea ? Cold, clammy skin ? Fainting ? Urinating less or not at all ? Fever How is cardiogenic shock diagnosed? Cardiogenic shock is usually diagnosed in the hospital, after you?ve been admitted for a possible heart attack or symptoms of shock. Your doctor will ask about your medical history, do a physical exam, and may order some tests. These tests may include: ? Chest X-ray. This is an imaging test to look at the structures in and around your chest. ? Coronary angiography. This test uses contrast material and X-ray images to find blockages in the coronary arteries. ? Echocardiography. This procedure uses sound waves to create moving pictures of your heart. The pictures show the size and shape of your heart, and how well your heart is pumping blood. ? Electrocardiogram (EKG or ECG). During this test, electrodes are placed on your skin to record your heart?s electrical activity. It can show how fast your heart is beating, if the rhythm is steady or irregular, and signs of a heart attack or other heart abnormalities. How is cardiogenic shock treated? Cardiogenic shock is a life-threatening emergency needing immediate treatment. Treatment for cardiogenic shock focuses on raising blood pressure, restoring blood flow to and from the heart, and reversing the underlying cause. It may include: ? Support therapies. These include oxygen or fluids. A ventilator may also be used to help with breathing. ? Medicines. The doctor may prescribe medicines to help with problems like low blood pressure, an irregular heartbeat, or a blood clot in an artery. ? Percutaneous cardiac intervention (PCI). This procedure can restore blood flow to and from the heart if an artery is blocked. Using live X-rays, a specialized doctor guides a small plastic tube (catheter) through the arteries to the blockage. They then insert a small balloon or mesh tube (stent) into the artery to open it. ? Coronary artery bypass grafting (CABG). This surgical procedure is open-heart surgery and may be done if PCI would not be an effective enough treatment for the problem. This treatment bypasses a blocked artery. A surgeon takes a healthy blood vessel from somewhere else in the body. They use it toreroute blood flow around the blockage. ? Medical devices. The heart may need help pumping blood for a short time or longer. Medical devices like a ventricular assist device or intra-aortic balloon pump may be used. These can help give theheart time to recover. Or they can support the heart for a time until other treatments can be done. ? Heart transplant. If other treatments don?t work, a heart transplant may be an option. This is a surgery done to remove the diseased heart and replace it with a healthy one from an organ donor. What are the complications of cardiogenic shock? Cardiogenic shock can lead to these health problems: ? Irregular heartbeat ? Cardiac arrest ? Kidney or liver failure ? Brain damage ? Heart attack ? Stroke ? Last Reviewed Date: 2024 00:00:00 ?? [id number] [employer] All rights reserved. This information is not intended as a substitute for professional medical care. Always follow your healthcare professional's instructions. documented in this encounter Plan of Treatment Upcoming Encounters Date Type Department Care Team (Late st Contact Info) Description 11/23/2024 10:30 AM CDT Office Visit Transitional Care at [address] [address] Scheduled Orders Name Type Priority Associated Diagnoses Order Schedule NOCTURNAL DESATURATION STUDY Respiratory Care Routine ONCE for 1 Occurrences starting 11/14/2024 until 11/14/2024 Scheduled Referrals Name Type Priority Associated Diagnoses Order Schedule AMB REFERRAL TO HOME HEALTH CARE Outpatient Referral Routine Hepatic trauma, initial encounter Leukocytosis, unspecified type Heart failure with reduced ejection fraction (HCC) Ordered: 11/09/2024 AMB REFERRAL TO PSYCHIATRY Outpatient Referral Routine Insomnia, unspecified type Depression, unspecified depression type 1 Occurrences starting 11/19/2024 until 11/10/2025 Ref to Cardiology [facility] Outpatient Referral Routine Elevated troponin Cardiogenic shock (HCC) Ordered: 11/19/2024 AMB REFERRAL TO [facility] Outpatient Referral Routine Heart failure with reduced ejection fraction (HCC) Ordered: 11/19/2024 Ref to [facility] Outpatient Referral Routine Cardiogenic shock (HCC) KASEY (acute kidney injury) Heart failure with reduced ejection fraction (HCC) Insomnia, unspecified type Hyponatremia CAD, multiple vessel Hypomagnesemia Hypotension, unspecified hypotension type 1 Occurrences starting 11/19/2024 until 11/19/2025 documented as of this encounter Procedures Procedure Name Priority Date/Time Associated Diagnosis Comments GLUCOSE - POINT OF CARE Routine 11/19/2024 11:54 AM CDT GLUCOSE - POINT OF CARE Routine 11/19/2024 7:46 AM CDT RENAL FUNCTION PANEL AM Draw 11/19/2024 1:13 AM CDT MAGNESIUM BLOOD AM Draw 11/19/2024 1:13 AM CDT CORTISOL BLOOD AM Routine 11/19/2024 1:1 3 AM CDT SODIUM BLOOD Timed 11/18/2024 8:41 [...] Cardiogenic shock (HCC) ACT LR - POCT ([facility]) Routine 11/17/2024 11:14 AM CDT ACT LR - POCT ([facility]) Routine 11/17/2024 10:05 AM CDT ACT LR - POCT ([facility]) Routine 11/17/2024 9:20 AM CDT ACT LR - POCT ([facility]) Routine 11/17/2024 8:38 AM CDT GLUCOSE - [...] OF CARE Routine 11/16/2024 6:17 AM CDT PT-INR AM Draw 11/16/2024 2:53 AM CDT CBC W AUTO DIFFERENTIAL AM Draw 11/16/2024 2:53 AM CDT COMPREHENSIVE METABOLIC PANEL AM Draw 11/16/2024 2:53 AM CDT PHOSPHORUS BLOOD AM Draw 11/16/2024 2:53 AM CDT MAGNESIUM BLOOD AM Draw 11/16/2024 2:53 AM CDT GLUCOSE - POINT OF CARE Routine 11/16/2024 12:11 AM CDT GLUCOSE - POINT OF CARE Routine 11/15/2024 11:18 AM CDT PT-INR AM Draw 11/15/2024 2:16 AM CDT CBC W AUTO DIFFERENTIAL AM Draw 11/15/2024 2:16 AM CDT COMPREHENSIVE METABOLIC PANEL AM Draw 11/15/2024 2:16 AM CDT PHOSPHORUS BLOOD AM Draw 11/15/2024 2:16 AM CDT MAGNESIUM BLOOD AM Draw 11/15/2024 2:16 AM CDT GLUCOSE - POINT OF CARE Routine 11/15/2024 12:36 AM CDT MRI CARDIAC STUDY WWO CONTRAST Routine 11/14/2024 5:14 PM CDT Heart failure with reduced ejection fraction (HCC) GLUCOSE - POINT OF CARE Routine 11/14/2024 11:21 AM CDT GLUCOSE - POINT OF CARE Routine 11/14/2024 5:54 AM CDT PT-INR AM Draw 11/14/2024 1:14 AM CDT CBC W AUTO DIFFERENTIAL AM Draw 11/14/2024 1:14 AM CDT COMPREHENSIVE METABOLIC PANEL AM Draw 11/14/2024 1:14 AM CDT PHOSPHORUS BLOOD AM Draw 11/14/2024 1:14 AM CDT MAGNESIUM BLOOD AM Draw 11/14/2024 1:14 AM CDT GLUCOSE - POINT OF CARE Routine 11/13/2024 11:26 PM CDT GLUCOSE - POINT OF CARE Routine 11/13/2024 11:29 AM CDT PT-INR AM Draw 11/13/2024 4:03 AM CDT CBC W AUTO DIFFERENTIAL AM Draw 11/13/2024 4:03 AM CDT COMPREHENSIVE METABOLIC PANEL AM Draw 11/13/2024 4:03 AM CDT PHOSPHORUS BLOOD AM Draw 11/13/2024 4:03 AM CDT MAGNESIUM BLOOD AM Draw 11/13/2024 4:03 AM CDT GLUCOSE - POINT OF CARE Routine 11/13/2024 12:20 AM CDT GLUCOSE - POINT OF CARE Routine 11/12/2024 6:45 PM CDT GLUCOSE - POINT OF CARE Routine 11/12/2024 12:24 PM CDT GLUCOSE - POINT OF CARE Routine 11/12/2024 5:26 AM CDT PT-INR AM Draw 11/12/2024 2:53 AM CDT CBC W AUTO DIFFERENTIAL AM Draw 11/12/2024 2:53 AM CDT COMPREHENSIVE METABOLIC PANEL AM Draw 11/12/2024 2:53 AM CDT PHOSPHORUS BLOOD AM Draw 11/12/2024 2:53 AM CDT MAGNESIUM BLOOD AM Draw 11/12/2024 2:53 AM CDT GLUCOSE - POINT OF CARE Routine 11/11/2024 11:57 PM CDT GLUCOSE - POINT OF CARE Routine 11/11/2024 6:18 PM CDT SODIUM URINE RANDOM Routine 11/11/2024 1 2:35 PM CDT OSMOLALITY URINE Routine 11/11/2024 12:3 5 PM CDT GLUCOSE - POINT OF CARE Routine 11/11/2024 11:28 AM CDT PT-INR AM Draw 11/11/2024 2:47 AM CDT CBC W AUTO DIFFERENTIAL AM Draw 11/11/2024 2:47 AM CDT COMPREHENSIVE METABOLIC PANEL AM Draw 11/11/2024 2:47 AM CDT PHOSPHORUS BLOOD AM Draw 11/11/2024 2:47 AM CDT MAGNESIUM BLOOD AM Draw 11/11/2024 2:47 AM CDT GLUCOSE - POINT OF CARE Routine 11/10/2024 8:23 PM CDT GLUCOSE - POINT OF CARE Routine 11/10/2024 4:25 PM CDT GLUCOSE - POINT OF CARE Routine 11/10/2024 11:48 AM CDT GLUCOSE - POINT OF CARE Routine 11/10/2024 6:10 AM CDT PT-INR AM Draw 11/10/2024 2:41 AM CDT DIFFERENTIAL MANUAL AM Draw 11/10/2024 2 :41 AM CDT CBC W AUTO DIFFERENTIAL AM Draw 11/10/2024 2:41 AM CDT COMPREHENSIVE METABOLIC PANEL AM Draw 11/10/2024 2:41 AM CDT PHOSPHORUS BLOOD AM Draw 11/10/2024 2:41 AM CDT MAGNESIUM BLOOD AM Draw 11/10/2024 2:41 AM CDT GLUCOSE - POINT OF CARE Routine 11/10/2024 12:30 AM CDT GLUCOSE - POINT OF CARE Routine 11/09/2024 5:50 PM CDT GLUCOSE - POINT OF CARE Routine 11/09/2024 1:01 PM CDT PT-INR AM Draw 11/09/2024 2:59 AM CDT DIFFERENTIAL MANUAL AM Draw 11/09/2024 2 :59 AM CDT CBC W AUTO DIFFERENTIAL AM Draw 11/09/2024 2:59 AM CDT COMPREHENSIVE METABOLIC PANEL AM Draw 11/09/2024 2:59 AM CDT PHOSPHORUS BLOOD AM Draw 11/09/2024 2:59 AM CDT MAGNESIUM BLOOD AM Draw 11/09/2024 2:59 AM CDT GLUCOSE [...] OF CARE Routine 11/08/2024 5:28 AM CDT PT-INR AM Draw 11/08/2024 3:01 AM CDT DIFFERENTIAL MANUAL AM Draw 11/08/2024 3 :01 AM CDT CBC W AUTO DIFFERENTIAL AM Draw 11/08/2024 3:01 AM CDT COMPREHENSIVE METABOLIC PANEL AM Draw 11/08/2024 3:01 AM CDT PHOSPHORUS BLOOD AM Draw 11/08/2024 3:01 AM CDT MAGNESIUM BLOOD AM Draw 11/08/2024 3:01 AM CDT GLUCOSE - POINT OF CARE Routine 11/08/2024 12:11 AM CDT GLUCOSE - POINT OF CARE Routine 11/07/2024 7:44 PM CDT GLUCOSE - POINT OF CARE Routine 11/07/2024 4:40 PM CDT GLUCOSE - POINT OF CARE Routine 11/07/2024 12:33 PM CDT PT-INR AM Draw 11/07/2024 8:43 AM CDT DIFFERENTIAL MANUAL AM Draw 11/07/2024 8 :43 AM CDT CBC W AUTO DIFFERENTIAL AM Draw 11/07/2024 8:43 AM CDT COMPREHENSIVE METABOLIC PANEL AM Draw 11/07/2024 8:43 AM CDT PHOSPHORUS BLOOD AM Draw 11/07/2024 8:43 AM CDT MAGNESIUM BLOOD AM Draw 11/07/2024 8:43 AM CDT GLUCOSE [...] ejection fraction (HCC) ACT LR - POCT ([facility]) Routine 11/06/2024 9:31 AM CDT ACT LR - POCT ([facility]) Routine 11/06/2024 8:54 AM CDT GLUCOSE - POINT OF CARE Routine 11/06/2024 6:22 AM CDT PT-INR AM Draw 11/06/2024 3:41 AM CDT DIFFERENTIAL MANUAL AM Draw 11/06/2024 3 :41 AM CDT CBC W AUTO DIFFERENTIAL AM Draw 11/06/2024 3:41 AM CDT COMPREHENSIVE METABOLIC PANEL AM Draw 11/06/2024 3:41 AM CDT PHOSPHORUS BLOOD AM Draw 11/06/2024 3:41 AM CDT MAGNESIUM BLOOD AM Draw 11/06/2024 3:41 AM CDT GLUCOSE - POINT OF CARE Routine 11/05/2024 11:46 PM CDT RENAL FUNCTION PANEL Timed 11/05/2024 11:30 PM CDT GLUCOSE - POINT OF CARE Routine 11/05/2024 6:25 PM CDT GLUCOSE - POINT OF CARE Routine 11/05/2024 12:05 PM CDT GLUCOSE - POINT OF CARE Routine 11/05/2024 6:24 AM CDT PT-INR AM Draw 11/05/2024 3:07 AM CDT CBC W AUTO DIFFERENTIAL AM Draw 11/05/2024 3:07 AM CDT COMPREHENSIVE METABOLIC PANEL AM Draw 11/05/2024 3:07 AM CDT PHOSPHORUS BLOOD AM Draw 11/05/2024 3:07 AM CDT MAGNESIUM BLOOD AM Draw 11/05/2024 3:07 AM CDT GLUCOSE [...] Heart failure with reduced ejection fraction (HCC) BASIC METABOLIC PANEL (CALCIUM TOTAL) Routine 11/04/2024 1:03 PM CDT IRON + TRANSFERRIN PANEL Routine 11/04/2024 1:03 PM CDT PT-INR AM Draw 11/04/2024 6:12 AM CDT CBC W AUTO DIFFERENTIAL AM Draw 11/04/2024 6:12 AM CDT COMPREHENSIVE METABOLIC PANEL AM Draw 11/04/2024 6:12 AM CDT RENAL FUNCTION PANEL Timed 11/04/2024 6:12 AM CDT MAGNESIUM BLOOD AM Draw 11/04/2024 6:12 AM CDT GLUCOSE - POINT OF CARE Routine 11/04/2024 5:35 AM CDT RENAL FUNCTION PANEL Timed 11/04/2024 12:31 AM CDT GLUCOSE - POINT OF CARE Routine 11/03/2024 11:50 PM CDT LIVER KIDNEY MICROSOME - 1 ANTIBODY IGG Routine 11/03/2024 8:40 PM CDT [id number] BLOOD PHENOTYPING PANEL Routine 11/03/2024 8:40 PM CDT MEREDITH BLOOD SCREEN W/REFLEX TITER Routine 11/03/2024 8:40 PM CDT MPO/SD 3 AUTOANTIBODIES PANEL Routine 11/03/2024 6:01 PM CDT RENAL FUNCTION PANEL Timed 11/03/2024 6:01 PM CDT OT EVAL AND TREAT Routine 11/03/2024 8:4 0 AM CDT HEMOGLOBIN A1C Routine 11/03/2024 8:00 AM CDT RENAL FUNCTION PANEL Timed 11/03/2024 8:00 AM CDT TSH Routine 11/03/2024 8:00 AM CDT FERRITIN Routine 11/03/2024 8:00 AM CDT LIPID PROFILE Routine 11/03/2024 8:00 AM CDT CALCIUM IONIZED WHOLE BLOOD AM Draw 11/03/2024 12:46 AM CDT PT-INR AM Draw 11/03/2024 12:46 AM CDT CBC W AUTO DIFFERENTIAL AM Draw 11/03/2024 12:46 AM CDT COMPREHENSIVE METABOLIC PANEL AM Draw 11/03/2024 12:46 AM CDT RENAL FUNCTION PANEL Timed 11/03/2024 12:46 AM CDT MAGNESIUM BLOOD AM Draw 11/03/2024 12:46 AM CDT RENAL FUNCTION PANEL Timed 11/02/2024 8:47 PM CDT CULTURE BLOOD Timed 11/02/2024 5:59 PM CDT CULTURE BLOOD Timed 11/02/2024 5:59 PM CDT PT-INR Routine 11/02/2024 5:59 PM CDT ECHO COMPLETE W CONTRAST STAT 11/02/2024 5:07 PM CDT Cardiogenic shock (HCC) OT EVAL AND TREAT Routine 11/02/2024 4:1 8 PM CDT PT EVAL AND TREAT Routine 11/02/2024 4:1 8 PM CDT EKG 12-LEAD Routine 11/02/2024 11:46 AM CDT Elevated troponin TROPONIN-I HIGH SENSITIVE Routine 11/02/2024 11:41 AM CDT B-TYPE NATRIURETIC PEPTIDE AM Draw 11/02/2024 11:41 AM CDT LACTIC ACID BLOOD Routine 11/02/2024 11: 41 AM CDT SODIUM URINE RANDOM Routine 11/02/2024 1 1:27 AM CDT UREA NITROGEN URINE RANDOM Routine 11/02/2024 11:27 AM CDT CREATININE URINE RANDOM Routine 11/02/2024 [...] HIGH SENSITIVE STAT 11/01/2024 11:23 PM CDT SMOOTH MUSCLE ANTIBODY W REFLEX TITER Routine 11/01/2024 11:23 PM CDT MITOCHONDRIAL ANTIBODY SCREEN Routine 11/01/2024 11:23 PM CDT HEPATITIS B SURFACE ANTIBODY QUANT Routine 11/01/2024 11:23 PM CDT HEPATITIS C RNA QUANTITATIVE Routine 11/01/2024 11:23 PM CDT HEPATITIS B DNA QUANT Routine 11/01/2024 11:23 PM CDT CERULOPLASMIN Routine 11/01/2024 11:23 PM CDT PT-INR Routine 11/01/2024 11:23 PM CDT CBC W AUTO DIFFERENTIAL STAT 11/01/2024 11:23 PM CDT COMPREHENSIVE METABOLIC PANEL STAT 11/01/2024 11:23 PM CDT PHOSPHORUS BLOOD STAT 11/01/2024 11:2 3 PM CDT MAGNESIUM BLOOD STAT 11/01/2024 11:23 PM CDT LACTIC ACID BLOOD STAT 11/01/2024 11: 23 PM CDT AMMONIA Routine 11/01/2024 11:23 PM CDT HEPATITIS SCREEN ACUTE Routine 11:23 PM CDT HEPATITIS B PANEL AM Draw 11/01/2024 11: 23 PM CDT ACETAMINOPHEN LEVEL Routine 11/01/2024 1 1:23 PM CDT documented in this encounter Results * (ABNORMAL) GLUCOSE - POINT OF CARE (11/19/2024 11:54 AM CDT) Glucose WB/POC 243(H) 70 - 99 mg/dL 11/19/2024 12:08 PM CDT [facility] Specimen Type Arterial/C apillary 11/19/2024 12:08 PM CDT [facility] Blood BLOOD SPECIMEN / Unknown 11/19/2024 11:54 AM CDT 11/19/2024 12:08 PM CDT us Kiersten De La Paz MD LAB - POINT OF CARE ORDERAB LES Final Result [address] [address], [place] [phone] * (ABNORMAL) GLUCOSE - POINT OF CARE (11/19/2024 7:46 AM CDT) Glucose WB/POC 126(H) 70 - 99 mg/dL 11/19/2024 7:55 AM CDT [facility] Specimen Type Arterial/C apillary 11/19/2024 7:55 AM CDT [facility] Blood BLOOD SPECIMEN / Unknown 11/19/2024 7:46 AM CDT 11/19/2024 7:55 AM CDT us Kiersten De La Paz MD LAB - POINT OF CARE ORDERAB LES Final Result [address] [address], [place] [phone] * (ABNORMAL) RENAL FUNCTION PANEL (11/19/2024 1:13 AM CDT) BUN 13 7 - 26 mg/dL 11/19/2024 2:29 AM CDT [facility] Creatinine 0.77 0.71 - 1.16 mg/dL 11/19/2024 2:29 AM CDT [facility] Sodium 130(L) 136 - 145 mmol/L 11/19/2024 2:29 AM CDT [facility] Potassium 3.9 3.5 - 4.5 mmol/L 11/19/2024 2:29 AM [facility] Chloride 101 98 - 107 mmol/L 11/19/2024 2:29 AM [facility] CO2 23 22 - 29 mmol/L 11/19/2024 2:29 AM [facility] Glucose 117(H) 70 - 99 mg/dL 11/19/2024 2:29 AM [facility] Albumin 2.3(L) 3.4 - 5.0 g/dL 11/19/2024 2:29 AM [facility] Calcium 7.3(L) 8.4 - 10.2 mg/dL 11/19/2024 2:29 AM [facility] Phosphorus 2.3(L) 2.8 - 5.1 mg/dL 11/19/2024 2:29 AM [facility] Anion Gap 6 6 - 16 11/19/2024 2:29 AM [facility] BUN/Creatinine Ratio 17 7 - 23 11/19/2024 2:29 AM [facility] Osmolality Calculated 271(L) 275 - 295 mOsm/kg 11/19/2024 2:29 AM [facility] eGFR by CKD-EPI >90 >=90 mL/min/1.7 3 m2 11/19/2024 2:29 AM [facility] Comment:Estimated Glomerular Filtration Rate (eGFR) calculated using the CKD-EPI Creatinine Equation (2020), per the [employer] and [place] [employer] recommendations. Blood BLOOD SPECIMEN / Unknown Lab Venipuncture / Unknown 11/19/2024 1:13 AM CDT 11/19/2024 1:48 AM CDT us Raoul Ga DO LAB - CHEMISTRY ORDERABLES Fin al Result [facility] [address] [place] [address], [facility] [phone] * MAGNESIUM BLOOD (11/19/2024 1:13 AM CDT) Magnesium 1.8 1.6 - 2.6 mg/dL 11/19/2024 2:29 AM [facility] Blood BLOOD SPECIMEN / Unknown Lab Venipuncture / Unknown 11/19/2024 1:13 AM CDT 11/19/2024 1:48 AM CDT Lamberto Singh MD LAB - CHEMISTRY ORDERABLES F inal Result Performing Organization Address [facility] [place]/[facility]/ZIP Co de Phone Number [address] [address], [facility] [phone] * CORTISOL BLOOD AM (11/19/2024 1:13 AM CDT) Cortisol AM 15.3 3.7 - 19.4 ug/dL 11/19/2024 2:45 AM CDT [facility] Blood BLOOD SPECIMEN / Unknown Lab Venipuncture / Unknown 11/19/2024 1:13 AM CDT 11/19/2024 1:48 AM CDT Narrative [facility] - 11/19/2024 2:45 AM CDT Normal cortisol levels are generally highest in the morning hours and lowest from late evening through the tuck pointer hours (8 PM to 4 AM). The PM measurements of cortisol run approximately one-half to one-third of the AM values. Hugo De La Cruz APRN-WALLPAPERER LAB - CHEMISTRY ORDERABL ES Final Result Performing Organization Address [facility] Co de Phone Number [address] [address], [facility] [phone] * (ABNORMAL) SODIUM BLOOD (11/18/2024 8:41 PM CDT) Sodium 130(L) 136 - 145 mmol/L 11/18/2024 9:23 PM CDT [facility] Blood BLOOD SPECIMEN / Unknown Venipuncture / Unknown 11/18/2024 8:41 PM CDT 11/18/2024 9:04 PM CDT Hugo De La Cruz TREE INSPECTOR-WALLPAPERER LAB - CHEMISTRY ORDERABL ES Final Result [address] [address], [facility] [phone] * (ABNORMAL) GLUCOSE - POINT OF CARE (11/18/2024 4:41 PM CDT) [facility] Glucose WB/POC 130(H) 70 - 99 mg/dL 11/18/2024 4:46 PM CDT [facility] Specimen Type Arterial/C apillary 11/18/2024 4:46 PM T [facility] Blood BLOOD SPECIMEN / Unknown 11/18/2024 4:41 PM CDT 11/18/2024 4:46 PM CDT Kiersten De La Paz MD LAB - POINT OF CARE ORDERAB LES Final Result [address] [address], [facility] [phone] * (ABNORMAL) BASIC METABOLIC PANEL (CALCIUM TOTAL) (11/18/2024 2:09 PM CDT) [facility] BUN 13 7 - 26 mg/dL 11/18/2024 2:41 PM [facility] Creatinine 0.73 0.71 - 1.16 mg/dL 11/18/2024 2:41 PM [facility] Sodium 128(L) 136 - 145 mmol/L 11/18/2024 2:41 PM [facility] Potassium 4.3 3.5 - 4.5 mmol/L 11/18/2024 2:41 PM [facility] Chloride 101 98 - 107 mmol/L 11/18/2024 2:41 PM [facility] CO2 22 22 - 29 mmol/L 11/18/2024 2:41 PM [facility] Glucose 132(H) 70 - 99 mg/dL 11/18/2024 2:41 PM [facility] Calcium 7.4(L) 8.4 - 10.2 mg/dL 11/18/2024 2:41 PM [facility] Anion Gap 5(L) 6 - 16 11/18/2024 2:41 PM CDT [facility] BUN/Creatinine Ratio 18 7 - 23 11/18/2024 2:41 PM CDT [facility] Osmolality Calculated 268(L) 275 - 295 mOsm/kg 11/18/2024 2:41 PM [facility] [facility] eGFR by CKD-EPI >90 >=90 mL/min/1.7 3 m2 11/18/2024 2:41 PM T [facility] Comment:Estimated Glomerular Filtration Rate (eGFR) calculated using the CKD-EPI Creatinine Equation (2020), per the National Kidney Foundation and [place] [employer] of Nephrology recommendations. Blood BLOOD SPECIMEN / Unknown Venipuncture / Unknown 11/18/2024 2:09 PM CDT 11/18/2024 2:14 PM CDT Hugo De La Cruz TREE INSPECTOR-[facility] LAB - CHEMISTRY ORDERABL ES Final Result Performing Organization Address City/[facility]/ZIP Co de Phone Number [address] [address], [place] [phone] * OSMOLALITY URINE (11/18/2024 12:51 PM CDT) Osmolality Urine 683 50 - 1,200 mOsm/kg 11/18/2024 1:36 PM CDT [facility] Urine URINE SPECIMEN OBTAINED BY CLEAN CATCH PROCEDURE / Unknown Collection / Unknown 11/18/2024 12:51 PM CDT 11/18/2024 1:00 PM CDT [facility] - URINE CHEMISTRY OR DERABLES Final Result [address] [address], [place] [phone] * LYTES (NA K CL) URINE RANDOM PANEL (11/18/2024 12:51 PM CDT) Sodium Urine 67 Not Established mmol/L 11/18/2024 1:29 PM CDT [facility] Potassium Urine 66.5 Not Established mmol/L 11/18/2024 1:29 PM CDT [facility] Chloride Random Urine 47 Not Established mmol/L 11/18/2024 1:29 PM CDT [facility] Urine URINE SPECIMEN OBTAINED BY CLEAN CATCH PROCEDURE / Unknown Collection / Unknown 11/18/2024 12:51 PM CDT 11/18/2024 1:00 PM CDT Hugo De La Cruz TREE INSPECTOR-[facility]ALLP[facility] LAB - URINE CHEMISTRY OR DERABLES Final Result Performing Organization Address City/[facility]/ZIP Co de Phone Number [address] [address], [facility] [phone] * (ABNORMAL) GLUCOSE - POINT OF CARE (11/18/2024 11:37 AM CDT) Glucose WB/POC 206(H) 70 - 99 mg/dL 11/18/2024 11:44 AM CDT [facility] Specimen Type Arterial/C apillary 11/18/2024 11:44 AM CDT [facility] Blood BLOOD SPECIMEN / Unknown 11/18/2024 11:37 AM CDT 11/18/2024 11:44 AM CDT Kiersten De La Paz MD LAB - POINT OF CARE ORDERAB LES Final Result Performing Organization Address City/[facility]/ZIP Co de Phone Number [address] [address], [facility] [phone] * (ABNORMAL) GLUCOSE - POINT OF CARE (11/18/2024 8:24 AM CDT) Glucose WB/POC 134(H) 70 - 99 mg/dL 11/18/2024 8:29 AM CDT [facility] Specimen Type Arterial/C apillary 11/18/2024 8:29 AM CDT [facility] Blood BLOOD SPECIMEN / Unknown 11/18/2024 8:24 AM CDT 11/18/2024 8:29 AM CDT us Kiersten De La Paz MD LAB - POINT OF CARE ORDERAB LES Final Result [facility] [address] [place] [address], [facility] [phone] * (ABNORMAL) RENAL FUNCTION PANEL (11/18/2024 1:47 AM [facility]) BUN 12 7 - 26 mg/dL 11/18/2024 3:17 AM [facility] Creatinine 0.72 0.71 - 1.16 mg/dL 11/18/2024 3:17 AM [facility] Sodium 129(L) 136 - 145 mmol/L 11/18/2024 3:17 AM [facility] Potassium 3.7 3.5 - 4.5 mmol/L 11/18/2024 3:17 AM [facility] Chloride 99 98 - 107 mmol/L 11/18/2024 3:17 AM [facility] CO2 23 22 - 29 mmol/L 11/18/2024 3:17 AM [facility] Glucose 121(H) 70 - 99 mg/dL 11/18/2024 3:17 AM [facility] Albumin 2.4(L) 3.4 - 5.0 g/dL 11/18/2024 3:17 AM [facility] Calcium 7.7(L) 8.4 - 10.2 mg/dL 11/18/2024 3:17 AM [facility] Phosphorus 3.2 2.8 - 5.1 mg/dL 11/18/2024 3:17 AM [facility] Anion Gap 7 6 - 16 11/18/2024 3:17 AM [facility] BUN/Creatinine Ratio 17 7 - 23 11/18/2024 3:17 AM [facility] Osmolality Calculated 269(L) 275 - 295 mOsm/kg 11/18/2024 3:17 AM [facility] eGFR by CKD-EPI >90 >=90 mL/min/1.7 3 m2 11/18/2024 3:17 AM [facility] Comment:Estimated Glomerular Filtration Rate (eGFR) calculated using the CKD-EPI Creatinine Equation (2020), per the National Kidney Foundation and [place] Society of Nephrology recommendations. Blood BLOOD SPECIMEN / Unknown Lab Venipuncture / Unknown 11/18/2024 1:47 AM CDT 11/18/2024 2:49 AM CDT Raoul Ga DO LAB - CHEMISTRY ORDERABLES Fin al Result Performing Organization Address [facility]/ZIP Co de Phone Number [address] [address], [facility] [phone] * (ABNORMAL) MAGNESIUM BLOOD (11/18/2024 1:47 AM CDT) Pathologist [facility] Magnesium 1.5(L) 1.6 - 2.6 mg/dL 11/18/2024 3:17 AM CDT [facility] Blood BLOOD SPECIMEN / Unknown Lab Venipuncture / Unknown 11/18/2024 1:47 AM CDT 11/18/2024 2:49 AM CDT us Lamberto Singh MD LAB - CHEMISTRY ORDERABLES F inal Result Performing Organization Address [facility]/ZIP Co de Phone Number [address] [address], [facility] [phone] * (ABNORMAL) CBC W/O DIFFERENTIAL (11/18/2024 1:47 AM CDT) WBC 9.4 4.0 - 10.7 x10E9/L 11/18/2024 2:58 AM CDT [facility] RBC Count 3.47(L) 4.30 - 5.80 x10E12/L 11/18/2024 2:58 AM CDT [facility] Hemoglobin 10.1(L) 13.3 - 17.5 g/dL 11/18/2024 2:58 AM T [facility] Hematocrit 30.9(L) 38.7 - 51.1 % 11/18/2024 2:58 AM T [facility] MCV 89.0 80.0 - 98.0 fL 11/18/2024 2:58 AM T [facility] MCH 29.1 26.7 - 33.6 pg 11/18/2024 2:58 AM CDT [facility] MCHC 32.7 31.7 - 36.3 g/dL 11/18/2024 2:58 AM CDT [facility] RDW-CV 15.4(H) 11.3 - 14.8 % 11/18/2024 2:58 AM CDT [facility] Platelet Count 260 150 - 420 x10E9/L 11/18/2024 2:58 AM CDT [facility] MPV 9.5 7.8 - 11.4 fL 11/18/2024 2:58 AM CDT [facility] Blood BLOOD SPECIMEN / Unknown Lab Venipuncture / Unknown 11/18/2024 1:47 AM CDT 11/18/2024 2:49 AM CDT us Raoul Ga DO LAB - HEMATOLOGY ORDERABLES Fi nal Result [address] [address], [place] [phone] * (ABNORMAL) GLUCOSE - POINT OF CARE (11/17/2024 6:54 PM CDT) [facility] Glucose WB/POC 168(H) 70 - 99 mg/dL 11/17/2024 6:56 PM CDT [facility] Specimen Type Arterial/C apillary 11/17/2024 6:56 PM CDT [facility] Blood BLOOD SPECIMEN / Unknown 11/17/2024 6:54 PM CDT 11/17/2024 6:56 PM CDT us Kiersten De La Paz MD LAB - POINT OF CARE ORDERAB LES Final Result [address] [address], [place] [phone] * CCL PERCUTANEOUS CORONARY INTERVENTION, CCL IFR, CCL IMPELLA INSERTION, CCL CORONARY IVUS, CCL PERIPHERAL ANGIOGRAM, CCL IMPELLA REMOVAL, CCL RIGHT HEART CATH (11/17/2024 11:41 AM CDT) Anatomical Region Laterality Modality X-Ray Angiograph y [...] RPLV1 chronic total occlusion, 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 Cardiac MRI with no scar. CT surgery [...] basically normal in recent procedure. 7 Fr Olin used for RHC. Again, his RHC numbers [...] engaging the lesion, suggestive of this being NETSUITE CONSULTANT. We changed to Framing And Hanging 200, which also buckled upon contact with PDA occlusion. Therefore, we concluded PDA was indeed NETSUITE CONSULTANT, and recanalization will require heavy wire which carries higher risk which is not worthwhile given PDA is well collateralized. We then focused on the proximal RCA lesions. The Framing And Hanging 200 was switched to timeplazzaslam for support and delivery. IVUS performed with [employer] HD IVUS. This showed 360 deg of calcium in the proximal lesions. Distal landing chosen in proximal vessel, diameter 4 mm. Proximal landing chosen in proximal vessel, diameter 4-4.5 mm. We tried to deliver a 3.5 mm [place] cutting balloon but were unable to. Therefore, [...] entered with pigtail catheter. Impella 0.018 in [place] Plus wire inserted to LV, and pigtail removed. The Impella CP catheter, readied on back table, advanced to LV and started. Single stick technique used to introduce 7 Fr land lease information clerk sheath into the 14 Fr sheath. 7 [...] placed in diagonal and LAD respectively. Using ictj-poez-idur sequence, balloons were inflated to 12 niya individually, and then 10 niya in kissing inflation. Angiogram now showed improved diagonal ostium, no longer pinched. We then moved on to LM/LAD/LCX bifurcation. Whisper repositioned to LCX. A 3.5 x 20 mm NC Trek Aaron used to predilated proximal LAD at 20 niya, expanding well. LM was prepared with 3.5 mm [place] cutting balloon which expanded well. Of note [...] removed. XB guide removed over J wire. Director Music sheath removed. Impella CP weaned to P2. [...] lesions: Prox LAD to Mid LAD): A Sys Cor Stent XienceSkpt 3.50mm 38mm Rap drug-eluting [...] catheter tip was placed in the left TIPPLE BOSS artery. The vessel was visualized by selective [...] diet, exercise, and weight loss. - PDA NETSUITE CONSULTANT to be medically managed. 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 Sheath pull = [...] established ranges from the company manual Raoul Alexa Ga DO LAB - COAGULATION ORDERABLES F inal Result Performing Organization Address City/[facility]/ZIP Co de Phone Number [address] [address], [place] [phone] * ACT LR - POCT ([facility]) (11/17/2024 10:05 AM CDT) ACT LR 324 See result comments sec 11/17/2024 1:16 PM CDT [facility] Blood BLOOD SPECIMEN / Unknown 11/17/2024 10:05 AM CDT 11/17/2024 1:16 PM CDT [facility] - 11/17/2024 1:16 PM CDT [employer] 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 Sheath pull = [...] established ranges from the company manual Raoul C Ga DO LAB - COAGULATION ORDERABLES F inal Result Performing Organization Address City/[facility]/ZIP Co de Phone Number [address] [address], [place] [phone] * ACT LR - POCT ([facility]) (11/17/2024 9:20 AM CDT) ACT LR 285 See result comments sec 11/17/2024 1:16 PM CDT [facility] Blood BLOOD SPECIMEN / Unknown 11/17/2024 9:20 AM CDT 11/17/2024 1:16 PM CDT Narrative [facility] - 11/17/2024 1:16 PM CDT [employer] 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 Sheath pull = [...] From established ranges from the company manual [employer] Alexa Shaher DO LAB - COAGULATION ORDERABLES F inal Result Performing Organization Address [facility]/ZIP Co de Phone Number [address] [address], [place] [phone] * ACT LR - POCT ([facility]) (11/17/2024 8:38 AM CDT) ACT LR 301 See result comments sec 11/17/2024 1:16 PM CDT [facility] Blood BLOOD SPECIMEN / Unknown 11/17/2024 8:38 AM CDT 11/17/2024 1:16 PM CDT Narrative [facility] - 11/17/2024 1:16 PM CDT [employer] 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 Sheath pull = [...] From established ranges from the company manual [employer] DO LAB - COAGULATION ORDERABLES F inal Result Performing Organization Address [facility]/ZIP Co de Phone Number [address] [address], [place] [phone] * (ABNORMAL) GLUCOSE - POINT OF CARE (11/17/2024 5:44 AM CDT) Glucose WB/POC 112(H) 70 - 99 mg/dL 11/17/2024 5:44 AM [facility] Specimen Type Arterial/C apillary 11/17/2024 5:44 AM [facility] Blood BLOOD SPECIMEN / Unknown 11/17/2024 5:44 AM CDT 11/17/2024 5:44 AM CDT Raoul Ga DO LAB - POINT OF CARE ORDERABLES Final Result [facility] [address] [place] [address], [facility] [phone] * (ABNORMAL) RENAL FUNCTION PANEL (11/17/2024 3:18 AM CDT) Pathologist [facility] BUN 10 7 - 26 mg/dL 11/17/2024 4:18 AM [facility] Creatinine 0.84 0.71 - 1.16 mg/dL 11/17/2024 4:18 AM [facility] Sodium 132(L) 136 - 145 mmol/L 11/17/2024 4:18 AM [facility] Potassium 4.4 3.5 - 4.5 mmol/L 11/17/2024 4:18 AM [facility] Chloride 104 98 - 107 mmol/L 11/17/2024 4:18 AM [facility] CO2 21(L) 22 - 29 mmol/L 11/17/2024 4:18 AM [facility] Glucose 98 70 - 99 mg/dL 11/17/2024 4:18 AM [facility] Albumin 2.3(L) 3.4 - 5.0 g/dL 11/17/2024 4:18 AM [facility] Calcium 7.5(L) 8.4 - 10.2 mg/dL 11/17/2024 4:18 AM [facility] Phosphorus 3.5 2.8 - 5.1 mg/dL 11/17/2024 4:18 AM [facility] Anion Gap 7 6 - 16 11/17/2024 4:18 AM CDT [facility] BUN/Creatinine Ratio 12 7 - 23 11/17/2024 4:18 AM T [facility] Osmolality Calculated 273(L) 275 - 295 mOsm/kg 11/17/2024 4:18 AM CDT [facility] eGFR by CKD-EPI 90 >=90 mL/min/1.7 3 m2 11/17/2024 4:18 AM T [facility] Comment:Estimated Glomerular Filtration Rate (eGFR) calculated using the CKD-EPI Creatinine Equation (2020), per the National Kidney Foundation and [place] [employer] of Nephrology recommendations. Blood BLOOD SPECIMEN / Unknown Lab Venipuncture / Unknown 11/17/2024 3:18 AM CDT 11/17/2024 3:56 AM CDT us Raoul Ga DO LAB - CHEMISTRY ORDERABLES Fin al Result Performing Organization Address City/[facility]/ZIP Co de Phone Number [address] [address], [facility] [phone] * MAGNESIUM BLOOD (11/17/2024 3:18 AM CDT) Magnesium 1.6 1.6 - 2.6 mg/dL 11/17/2024 4:18 AM CDT [facility] Blood BLOOD SPECIMEN / Unknown Lab Venipuncture / Unknown 11/17/2024 3:18 AM CDT 11/17/2024 3:56 AM CDT us Lamberto Singh MD LAB - CHEMISTRY ORDERABLES F inal Result [address] [address], [place] [phone] * (ABNORMAL) GLUCOSE - POINT OF CARE (11/16/2024 11:46 PM CDT) Glucose WB/POC 120(H) 70 - 99 mg/dL 11/16/2024 11:47 PM CDT [facility] Specimen Type Arterial/C apillary 11/16/2024 11:47 PM CDT [facility] Blood BLOOD SPECIMEN / Unknown 11/16/2024 11:46 PM CDT 11/16/2024 11:47 PM CDT Raoul Ga DO LAB - POINT OF CARE ORDERABLES Final Result Performing Organization Address [facility]/ZIP Co de Phone Number [address] [address], [place] [phone] * VAS Right Arterial Duplex Le (11/16/2024 3:55 PM CDT) Anatomical Region Laterality Modality Lower Extremity Ultrasound 11/16/2024 2:53 PM CDT Narrative Procedure Note Romel Chairez MD - 11/16/2024 Raoul Ga DO VASCULAR LAB ORDERABLES Edited Result - Final * (ABNORMAL) GLUCOSE - POINT OF CARE (11/16/2024 6:17 AM CDT) Glucose WB/POC 102(H) 70 - 99 mg/dL 11/16/2024 6:17 AM CDT [facility] Specimen Type Arterial/C apillary 11/16/2024 6:17 AM CDT [facility] Blood BLOOD SPECIMEN / Unknown 11/16/2024 6:17 AM CDT 11/16/2024 6:17 AM CDT Raoul Ga DO LAB - POINT OF CARE ORDERABLES Final Result [address] [address], [place] [phone] * PHOSPHORUS BLOOD (11/16/2024 2:53 AM CDT) Phosphorus 3.4 2.8 - 5.1 mg/dL 11/16/2024 3:47 AM CDT [facility] Blood BLOOD SPECIMEN / Unknown Lab Venipuncture / Unknown 11/16/2024 2:53 AM CDT 11/16/2024 3:12 AM CDT us Lamberto Singh MD LAB - CHEMISTRY ORDERABLES F inal Result [facility] [address] [place] [address], [facility] [phone] * (ABNORMAL) COMPREHENSIVE METABOLIC PANEL (11/16/2024 2:53 AM CDT) BUN 10 7 - 26 mg/dL 11/16/2024 3:47 AM [facility] Creatinine 0.83 0.71 - 1.16 mg/dL 11/16/2024 3:47 AM [facility] Sodium 133(L) 136 - 145 mmol/L 11/16/2024 3:47 AM [facility] Potassium 4.1 3.5 - 4.5 mmol/L 11/16/2024 3:47 AM [facility] Chloride 102 98 - 107 mmol/L 11/16/2024 3:47 AM [facility] CO2 24 22 - 29 mmol/L 11/16/2024 3:47 AM [facility] Glucose 107(H) 70 - 99 mg/dL 11/16/2024 3:47 AM [facility] Calcium 7.7(L) 8.4 - 10.2 mg/dL 11/16/2024 3:47 AM [facility] Protein Total 4.9(L) 6.0 - 8.3 g/dL 11/16/2024 3:47 AM [facility] Albumin 2.4(L) 3.4 - 5.0 g/dL 11/16/2024 3:47 AM [facility] Bilirubin Total 0.6 0.2 - 1.2 mg/dL 11/16/2024 3:47 AM [facility] Alkaline Phosphatase 114 40 - 150 U/L 11/16/2024 3:47 AM [facility] ALT 66(H) 5 - 55 U/L 11/16/2024 3:47 AM [facility] AST 33 5 - 34 U/L 11/16/2024 3:47 AM [facility] Anion Gap 7 6 - 16 11/16/2024 3:47 AM [facility] BUN/Creatinine Ratio 12 7 - 23 11/16/2024 3:47 AM [facility] Osmolality Calculated 276 275 - 295 mOsm/kg 11/16/2024 3:47 AM [facility] Albumin/Globulin Ratio 1.0(L) 1.1 - 2.3 11/16/2024 3:47 AM [facility] eGFR by CKD-EPI >90 >=90 mL/min/1.7 3 m2 11/16/2024 3:47 AM [facility] Comment:Estimated Glomerular Filtration Rate (eGFR) calculated using the CKD-EPI Creatinine Equation (2020), per the National Kidney Foundation and [place] [employer] of Nephrology recommendations. Blood BLOOD SPECIMEN / Unknown Lab Venipuncture / Unknown 11/16/2024 2:53 AM CDT 11/16/2024 3:12 AM CDT us Lamberto Singh MD LAB - CHEMISTRY ORDERABLES F inal Result [address] [address], [facility] [phone] * PT-INR (11/16/2024 2:53 AM CDT) PT 14.5 12.1 - 14.8 Seconds 11/16/2024 3:45 AM [facility] INR 1.2 See Comment 11/16/2024 3:45 AM [facility] Comment:The suggested therap eutic range for standard coumadin (warfarin) therapy is an INR of 2.0-3.0. For high-risk patients (Mechanical Mitral Valve Prosthesis, etc.), the suggested prophylactic therapeutic range is an INR of 2.5-3.5. Blood BLOOD SPECIMEN / Unknown Lab Venipuncture / Unknown 11/16/2024 2:53 AM CDT 11/16/2024 3:18 AM CDT us Lamberto Singh MD LAB - COAGULATION ORDERABLES Final Result Performing Organization Address City/[facility]/ZIP Co de Phone Number [address] [address], [place] [phone] * MAGNESIUM BLOOD (11/16/2024 2:53 AM CDT) Magnesium 1.7 1.6 - 2.6 mg/dL 11/16/2024 3:47 AM CDT [facility] Blood BLOOD SPECIMEN / Unknown Lab Venipuncture / Unknown 11/16/2024 2:53 AM CDT 11/16/2024 3:12 AM CDT us Lamberto Singh MD LAB - CHEMISTRY ORDERABLES F inal Result Performing Organization Address [facility]/ZIP Co de Phone Number [address] [address], [facility] [phone] * (ABNORMAL) CBC W AUTO DIFFERENTIAL (11/16/2024 2:53 AM CDT) WBC 6.8 4.0 - 10.7 x10E9/L 11/16/2024 3:23 AM [facility] RBC Count 3.49(L) 4.30 - 5.80 x10E12/L 11/16/2024 3:23 AM [facility] Hemoglobin 10.3(L) 13.3 - 17.5 g/dL 11/16/2024 3:23 AM [facility] Hematocrit 31.7(L) 38.7 - 51.1 % 11/16/2024 3:23 AM [facility] MCV 90.8 80.0 - 98.0 fL 11/16/2024 3:23 AM [facility] MCH 29.5 26.7 - 33.6 pg 11/16/2024 3:23 AM [facility] MCHC 32.5 31.7 - 36.3 g/dL 11/16/2024 3:23 AM [facility] RDW-CV 15.5(H) 11.3 - 14.8 % 11/16/2024 3:23 AM [facility] Platelet Count 233 150 - 420 x10E9/L 11/16/2024 3:23 AM [facility] MPV 9.6 7.8 - 11.4 fL 11/16/2024 3:23 AM [facility] Neutrophil % 61.7 41.0 - 74.0 % 11/16/2024 3:23 AM [facility] Lymphocyte % 26.1 17.0 - 47.0 % 11/16/2024 3:23 AM [facility] Monocyte % 10.6 3.0 - 11.0 % 11/16/2024 3:23 AM [facility] Eosinophil % 0.6 0.0 - 7.0 % 11/16/2024 3:23 AM [facility] Basophil % 0.3 0.0 - 1.6 % 11/16/2024 3:23 AM [facility] Immature Granulocytes % 0.7 0.0 - 1.0 % 11/16/2024 3:23 AM [facility] Neutrophil Absolute 4.17 1.60 - 7.50 x10E9/L 11/16/2024 3:23 AM [facility] Lymphocyte Absolute 1.77 1.00 - 4.40 x10E9/L 11/16/2024 3:23 AM [facility] Monocyte Absolute 0.72 0.15 - 1.00 x10E9/L 11/16/2024 3:23 AM [facility] Eosinophil Absolute 0.04 0.00 - 0.60 x10E9/L 11/16/2024 3:23 AM [facility] Basophil Absolute 0.02 0.00 - 0.13 x10E9/L 11/16/2024 3:23 AM [facility] Blood BLOOD SPECIMEN / Unknown Lab Venipuncture / Unknown 11/16/2024 2:53 AM CDT 11/16/2024 3:17 AM T Lamberto Singh MD LAB - HEMATOLOGY ORDERABLES Final Result [address] [address], [place] [phone] * (ABNORMAL) GLUCOSE - POINT OF CARE (11/16/2024 12:11 AM CDT) Glucose WB/POC 108(H) 70 - 99 mg/dL 11/16/2024 12:16 AM CDT [facility] Specimen Type Arterial/C apillary 11/16/2024 12:16 AM CDT [facility] Blood BLOOD SPECIMEN / Unknown 11/16/2024 12:11 AM CDT 11/16/2024 12:16 AM CDT Raoul aG DO LAB - POINT OF CARE ORDERABLES Final Result Performing Organization Address [facility]/ZIP Co de Phone Number [address] [address], [place] [phone] * (ABNORMAL) GLUCOSE - POINT OF CARE (11/15/2024 11:18 AM CDT) Glucose WB/POC 243(H) 70 - 99 mg/dL 11/15/2024 11:21 AM CDT [facility] Specimen Type Arterial/C apillary 11/15/2024 11:21 AM CDT [facility] Blood BLOOD SPECIMEN / Unknown 11/15/2024 11:18 AM CDT 11/15/2024 11:21 AM CDT Raoul Ga DO LAB - POINT OF CARE ORDERABLES Final Result [address] [address], [place] [phone] * PHOSPHORUS BLOOD (11/15/2024 2:16 AM CDT) Phosphorus 3.6 2.8 - 5.1 mg/dL 11/15/2024 3:08 AM CDT [facility] Blood BLOOD SPECIMEN / Unknown Lab Venipuncture / Unknown 11/15/2024 2:16 AM CDT 11/15/2024 2:36 AM T us Lamberto Singh MD LAB - CHEMISTRY ORDERABLES F inal Result [facility] [address] [place] [address], [facility] [phone] * (ABNORMAL) COMPREHENSIVE METABOLIC PANEL (11/15/2024 2:16 AM CDT) BUN 11 7 - 26 mg/dL 11/15/2024 3:08 AM [facility] Creatinine 0.84 0.71 - 1.16 mg/dL 11/15/2024 3:08 AM [facility] Sodium 133(L) 136 - 145 mmol/L 11/15/2024 3:08 AM [facility] Potassium 4.3 3.5 - 4.5 mmol/L 11/15/2024 3:08 AM [facility] Chloride 102 98 - 107 mmol/L 11/15/2024 3:08 AM [facility] CO2 25 22 - 29 mmol/L 11/15/2024 3:08 AM [facility] Glucose 104(H) 70 - 99 mg/dL 11/15/2024 3:08 AM [facility] Calcium 7.8(L) 8.4 - 10.2 mg/dL 11/15/2024 3:08 AM [facility] Protein Total 4.9(L) 6.0 - 8.3 g/dL 11/15/2024 3:08 AM [facility] Albumin 2.2(L) 3.4 - 5.0 g/dL 11/15/2024 3:08 AM [facility] Bilirubin Total 0.6 0.2 - 1.2 mg/dL 11/15/2024 3:08 AM [facility] Alkaline Phosphatase 105 40 - 150 U/L 11/15/2024 3:08 AM [facility] ALT 74(H) 5 - 55 U/L 11/15/2024 3:08 AM [facility] AST 32 5 - 34 U/L 11/15/2024 3:08 AM T [facility] Anion Gap 6 6 - 16 11/15/2024 3:08 AM [facility] BUN/Creatinine Ratio 13 7 - 23 11/15/2024 3:08 AM [facility] Osmolality Calculated 276 275 - 295 mOsm/kg 11/15/2024 3:08 AM [facility] Albumin/Globulin Ratio 0.8(L) 1.1 - 2.3 11/15/2024 3:08 AM [facility] eGFR by CKD-EPI 90 >=90 mL/min/1.7 3 m2 11/15/2024 3:08 AM [facility] Comment:Estimated Glomerular Filtration Rate (eGFR) calculated using the CKD-EPI Creatinine Equation (2020), per the National Kidney Foundation and [place] [employer]ph[employer] recommendations. Blood BLOOD SPECIMEN / Unknown Lab Venipuncture / Unknown 11/15/2024 2:16 AM CDT 11/15/2024 2:36 AM CDT us Lamberto Singh MD LAB - CHEMISTRY ORDERABLES F inal Result [facility] [address] [place] [address], [facility] [phone] * (ABNORMAL) PT-INR (11/15/2024 2:16 AM CDT) PT 15.1(H) 12.1 - 14.8 Seconds 11/15/2024 3:03 AM T [facility] INR 1.2 See Comment 11/15/2024 3:03 AM T [facility] Comment:The suggested therap eutic range for standard coumadin (warfarin) therapy is an INR of 2.0-3.0. For high-risk patients (Mechanical Mitral Valve Prosthesis, etc.), the suggested prophylactic therapeutic range is an INR of 2.5-3.5. Blood BLOOD SPECIMEN / Unknown Lab Venipuncture / Unknown 11/15/2024 2:16 AM CDT 11/15/2024 2:37 AM CDT us Lamberto Singh MD LAB - COAGULATION ORDERABLES Final Result Performing Organization Address City/[facility]/ZIP Co de Phone Number [address] [address], [facility] [phone] * MAGNESIUM BLOOD (11/15/2024 2:16 AM CDT) Magnesium 1.6 1.6 - 2.6 mg/dL 11/15/2024 3:08 AM T [facility] Blood BLOOD SPECIMEN / Unknown Lab Venipuncture / Unknown 11/15/2024 2:16 AM CDT 11/15/2024 2:36 AM CDT us Lamberto Singh MD LAB - CHEMISTRY ORDERABLES F inal Result Performing Organization Address [facility] [place]/[facility] Co de Phone Number [address] [address], [facility] [phone] * (ABNORMAL) CBC W AUTO DIFFERENTIAL (11/15/2024 2:16 AM CDT) WBC 7.0 4.0 - 10.7 x10E9/L 11/15/2024 2:43 AM [facility] RBC Count 3.44(L) 4.30 - 5.80 x10E12/L 11/15/2024 2:43 AM [facility] Hemoglobin 10.1(L) 13.3 - 17.5 g/dL 11/15/2024 2:43 AM [facility] Hematocrit 30.8(L) 38.7 - 51.1 % 11/15/2024 2:43 AM [facility] MCV 89.5 80.0 - 98.0 fL 11/15/2024 2:43 AM [facility] MCH 29.4 26.7 - 33.6 pg 11/15/2024 2:43 AM [facility] MCHC 32.8 31.7 - 36.3 g/dL 11/15/2024 2:43 AM [facility] RDW-CV 15.7(H) 11.3 - 14.8 % 11/15/2024 2:43 AM [facility] Platelet Count 228 150 - 420 x10E9/L 11/15/2024 2:43 AM [facility] MPV 9.7 7.8 - 11.4 fL 11/15/2024 2:43 AM [facility] Neutrophil % 61.0 41.0 - 74.0 % 11/15/2024 2:43 AM [facility] Lymphocyte % 26.0 17.0 - 47.0 % 11/15/2024 2:43 AM [facility] Monocyte % 10.3 3.0 - 11.0 % 11/15/2024 2:43 AM [facility] Eosinophil % 1.1 0.0 - 7.0 % 11/15/2024 2:43 AM [facility] Basophil % 0.6 0.0 - 1.6 % 11/15/2024 2:43 AM [facility] Immature Granulocytes % 1.0 0.0 - 1.0 % 11/15/2024 2:43 AM [facility] Neutrophil Absolute 4.25 1.60 - 7.50 x10E9/L 11/15/2024 2:43 AM [facility] Lymphocyte Absolute 1.81 1.00 - 4.40 x10E9/L 11/15/2024 2:43 AM [facility] Monocyte Absolute 0.72 0.15 - 1.00 x10E9/L 11/15/2024 2:43 AM [facility] Eosinophil Absolute 0.08 0.00 - 0.60 x10E9/L 11/15/2024 2:43 AM [facility] Basophil Absolute 0.04 0.00 - 0.13 x10E9/L 11/15/2024 2:43 AM [facility] Blood BLOOD SPECIMEN / Unknown Lab Venipuncture / Unknown 11/15/2024 2:16 AM CDT 11/15/2024 2:33 AM T Lamberto Singh MD LAB - HEMATOLOGY ORDERABLES Final Result [address] [address], [facility] [phone] * (ABNORMAL) GLUCOSE - POINT OF CARE (11/15/2024 12:36 AM CDT) Glucose WB/POC 112(H) 70 - 99 mg/dL 11/15/2024 12:42 AM CDT [facility] Specimen Type Arterial/C apillary 11/15/2024 12:42 AM CDT [facility] Blood BLOOD SPECIMEN / Unknown 11/15/2024 12:36 AM CDT 11/15/2024 12:41 AM CDT Raoul Ga DO LAB - POINT OF CARE ORDERABLES Final Result Performing Organization Address [facility] [place]/[facility] Co de Phone Number [address] [address], [facility] [phone] * MRI Cardiac Study Wwo Contrast (11/14/2024 [...] edema. > Dictated by Froilan Doss MD (Animal Humane Agent Supervisor), 11/15/2024 11:17 AM. > Dictated by Animal Humane Agent Supervisor I, Reji Garrett MD have personally reviewed and interpreted this examination/study. > Interpreting Provider: Reji Garrett MD on 11/16/2024 7:03 AM Narrative 11/16/2024 7:03 AM CDT PROCEDURE: MRI CARDIAC STUDY WWO CONTRAST, DATE/TIME OF EXAM: 11/14/2024 5:30 PM, LOCATION [facility] INDICATION: I50.20: Heart failure with reduced [...] CONTRAST, DATE/TIME OF EXAM:11/14/2024 5:30 PM, LOCATION [facility] INDICATION: I50.20: Heart failure with reduced [...] edema. > Dictated by Froilan Doss MD (Animal Humane Agent Supervisor), 11/15/2024 11:17 AM. > Dictated by Animal Humane Agent Supervisor I, Reji Garrett MD have personally reviewed and interpreted this examination/study. > Interpreting Provider: Reji Garrett MD on 57:03 AM us Joel Cao III, MD MR ORDERABLES Final R esult * (ABNORMAL) GLUCOSE - POINT OF CARE (11/14/2024 11:21 AM CDT) Pathologist [facility] Glucose WB/POC 294(H) 70 - 99 mg/dL 11/14/2024 11:22 AM CDT [facility] Specimen Type Arterial/C apillary 11/14/2024 11:22 AM CDT [facility] Blood BLOOD SPECIMEN / Unknown 11/14/2024 11:21 AM CDT 11/14/2024 11:22 AM CDT us Raoul Ga DO LAB - POINT OF CARE ORDERABLES Final Result Performing Organization Address City/[facility]/ZIP Co de Phone Number [address] [address], [facility] [phone] * (ABNORMAL) GLUCOSE - POINT OF CARE (11/14/2024 5:54 AM CDT) Glucose WB/POC 100(H) 70 - 99 mg/dL 11/14/2024 5:59 AM CDT [facility] Specimen Type Arterial/C apillary 11/14/2024 5:59 AM CDT [facility] Blood BLOOD SPECIMEN / Unknown 11/14/2024 5:54 AM CDT 11/14/2024 5:59 AM CDT us Joel Cao III, MD LAB - POINT OF CARE ORD ERABLES Final Result Performing Organization Address [facility] [place]/[facility]/ZIP Co de Phone Number [address] [address], [place] [phone] * PHOSPHORUS BLOOD (11/14/2024 1:14 AM CDT) Phosphorus 3.0 2.8 - 5.1 mg/dL 11/14/2024 1:54 AM CDT [facility] Blood BLOOD SPECIMEN / Unknown Venipuncture / Unknown 11/14/2024 1:14 AM CDT 11/14/2024 1:23 AM CDT us Lamberto Singh MD LAB - CHEMISTRY ORDERABLES F inal Result Performing Organization Address City/[facility]/ZIP Co de Phone Number [address] [address], [place] [phone] * (ABNORMAL) COMPREHENSIVE METABOLIC PANEL (11/14/2024 1:14 AM CDT) BUN 14 7 - 26 mg/dL 11/14/2024 1:54 AM [facility] Creatinine 0.94 0.71 - 1.16 mg/dL 11/14/2024 1:54 AM [facility] Sodium 132(L) 136 - 145 mmol/L 11/14/2024 1:54 AM [facility] Potassium 4.6(H) 3.5 - 4.5 mmol/L 11/14/2024 1:54 AM [facility] Chloride 103 98 - 107 mmol/L 11/14/2024 1:54 AM [facility] CO2 26 22 - 29 mmol/L 11/14/2024 1:54 AM [facility] Glucose 101(H) 70 - 99 mg/dL 11/14/2024 1:54 AM [facility] Calcium 7.9(L) 8.4 - 10.2 mg/dL 11/14/2024 1:54 AM [facility] Protein Total 5.5(L) 6.0 - 8.3 g/dL 11/14/2024 1:54 AM [facility] Albumin 2.5(L) 3.4 - 5.0 g/dL 11/14/2024 1:54 AM [facility] Bilirubin Total 0.8 0.2 - 1.2 mg/dL 11/14/2024 1:54 AM [facility] Alkaline Phosphatase 126 40 - 150 U/L 11/14/2024 1:54 AM [facility] ALT 101(H) 5 - 55 U/L 11/14/2024 1:54 AM [facility] AST 46(H) 5 - 34 U/L 11/14/2024 1:54 AM [facility] Anion Gap 3(L) 6 - 16 11/14/2024 1:54 AM [facility] BUN/Creatinine Ratio 15 7 - 23 11/14/2024 1:54 AM [facility] Osmolality Calculated 275 275 - 295 mOsm/kg 11/14/2024 1:54 AM [facility] Albumin/Globulin Ratio 0.8(L) 1.1 - 2.3 11/14/2024 1:54 AM T [facility] eGFR by CKD-EPI 84(L) >=90 mL/min/1.7 3 m2 11/14/2024 1:54 AM T [facility] Comment:Estimated Glomerular Filtration Rate (eGFR) calculated using the CKD-EPI Creatinine Equation (2020), per the National Kidney Foundation and [place] [employer]ph[employer] recommendations. Blood BLOOD SPECIMEN / Unknown Venipuncture / Unknown 11/14/2024 1:14 AM CDT 11/14/2024 1:23 AM CDT Lamberto Singh MD LAB - CHEMISTRY ORDERABLES F inal Result Performing Organization Address City/[facility]/ZIP Co de Phone Number [address] [address], [facility] [phone] * PT-INR (11/14/2024 1:14 AM CDT) PT 14.0 12.1 - 14.8 Seconds 11/14/2024 1:44 AM T [facility] INR 1.1 See Comment 11/14/2024 1:44 AM T [facility] Comment:The suggested therap eutic range for standard coumadin (warfarin) therapy is an INR of 2.0-3.0. For high-risk patients (Mechanical Mitral Valve Prosthesis, etc.), the suggested prophylactic therapeutic range is an INR of 2.5-3.5. Blood BLOOD SPECIMEN / Unknown Venipuncture / Unknown 11/14/2024 1:14 AM CDT 11/14/2024 1:23 AM CDT us Labmerto Singh MD LAB - COAGULATION ORDERABLES Final Result Performing Organization Address [facility] [place]/[facility]/ZIP Co de Phone Number [address] [address], [facility] [phone] * MAGNESIUM BLOOD (11/14/2024 1:14 AM CDT) Magnesium 1.7 1.6 - 2.6 mg/dL 11/14/2024 1:54 AM [facility] Blood BLOOD SPECIMEN / Unknown Venipuncture / Unknown 11/14/2024 1:14 AM CDT 11/14/2024 1:23 AM CDT us Lamberto Singh MD LAB - CHEMISTRY ORDERABLES F inal Result [facility] [address] [place] [address], [facility] [phone] * (ABNORMAL) CBC W AUTO DIFFERENTIAL (11/14/2024 1:14 AM CDT) WBC 7.8 4.0 - 10.7 x10E9/L 11/14/2024 1:50 AM [facility] RBC Count 3.63(L) 4.30 - 5.80 x10E12/L 11/14/2024 1:50 AM [facility] Hemoglobin 10.8(L) 13.3 - 17.5 g/dL 11/14/2024 1:50 AM [facility] Hematocrit 32.4(L) 38.7 - 51.1 % 11/14/2024 1:50 AM [facility] MCV 89.3 80.0 - 98.0 fL 11/14/2024 1:50 AM [facility] MCH 29.8 26.7 - 33.6 pg 11/14/2024 1:50 AM [facility] MCHC 33.3 31.7 - 36.3 g/dL 11/14/2024 1:50 AM [facility] RDW-CV 15.4(H) 11.3 - 14.8 % 11/14/2024 1:50 AM [facility] Platelet Count 252 150 - 420 x10E9/L 11/14/2024 1:50 AM [facility] MPV 10.1 7.8 - 11.4 fL 11/14/2024 1:50 AM [facility] Neutrophil % 69.0 41.0 - 74.0 % 11/14/2024 1:50 AM [facility] Lymphocyte % 18.5 17.0 - 47.0 % 11/14/2024 1:50 AM [facility] Monocyte % 9.3 3.0 - 11.0 % 11/14/2024 1:50 AM [facility] Eosinophil % 1.4 0.0 - 7.0 % 11/14/2024 1:50 AM [facility] Basophil % 0.3 0.0 - 1.6 % 11/14/2024 1:50 AM [facility] Immature Granulocytes % 1.5(H) 0.0 - 1.0 % 11/14/2024 1:50 AM [facility] Neutrophil Absolute 5.40 1.60 - 7.50 x10E9/L 11/14/2024 1:50 AM [facility] Lymphocyte Absolute 1.45 1.00 - 4.40 x10E9/L 11/14/2024 1:50 AM [facility] Monocyte Absolute 0.73 0.15 - 1.00 x10E9/L 11/14/2024 1:50 AM [facility] Eosinophil Absolute 0.11 0.00 - 0.60 x10E9/L 11/14/2024 1:50 AM [facility] Basophil Absolute 0.02 0.00 - 0.13 x10E9/L 11/14/2024 1:50 AM [facility] Blood BLOOD SPECIMEN / Unknown Venipuncture / Unknown 11/14/2024 1:14 AM CDT 11/14/2024 1:23 AM T us Lamberto Singh MD LAB - HEMATOLOGY ORDERABLES Final Result [facility] [address] [place] [address], [facility] [phone] * (ABNORMAL) GLUCOSE - POINT OF CARE (11/13/2024 11:26 PM CDT) Pathologist [facility] Glucose WB/POC 107(H) 70 - 99 mg/dL 11/13/2024 11:35 PM [facility] Specimen Type Arterial/C apillary 11/13/2024 11:35 PM CDT [facility] Blood BLOOD SPECIMEN / Unknown 11/13/2024 11:26 PM CDT 11/13/2024 11:34 PM CDT us Joel Cao III, MD LAB - POINT OF CARE ORD ERABLES Final Result Performing Organization Address [facility] [place]/[facility]/ZIP Co de Phone Number [address] [address], [place] [phone] * (ABNORMAL) GLUCOSE - POINT OF CARE (11/13/2024 11:29 AM CDT) Glucose WB/POC 233(H) 70 - 99 mg/dL 11/13/2024 11:29 AM CDT [facility] Specimen Type Arterial/C apillary 11/13/2024 11:29 AM CDT [facility] Blood BLOOD SPECIMEN / Unknown 11/13/2024 11:29 AM CDT 11/13/2024 11:29 AM CDT us Joel Cao III, MD LAB - POINT OF CARE ORD ERABLES Final Result Performing Organization Address [facility] [place]/[facility] Co de Phone Number [address] [address], [place] [phone] * PHOSPHORUS BLOOD (11/13/2024 4:03 AM CDT) Phosphorus 3.1 2.8 - 5.1 mg/dL 11/13/2024 5:30 AM CDT [facility] Blood BLOOD SPECIMEN / Unknown Lab Venipuncture / Unknown 11/13/2024 4:03 AM CDT 11/13/2024 4:51 AM CDT us Lamberto Singh MD LAB - CHEMISTRY ORDERABLES F inal Result Performing Organization Address City/[facility]/ZIP Co de Phone Number [address] [address], [place] [phone] * (ABNORMAL) COMPREHENSIVE METABOLIC PANEL (11/13/2024 4:03 AM [facility]) BUN 9 7 - 26 mg/dL 11/13/2024 5:30 AM [facility] Creatinine 0.90 0.71 - 1.16 mg/dL 11/13/2024 5:30 AM [facility] Sodium 133(L) 136 - 145 mmol/L 11/13/2024 5:30 AM [facility] Potassium 4.3 3.5 - 4.5 mmol/L 11/13/2024 5:30 AM [facility] Chloride 103 98 - 107 mmol/L 11/13/2024 5:30 AM [facility] CO2 25 22 - 29 mmol/L 11/13/2024 5:30 AM [facility] Glucose 98 70 - 99 mg/dL 11/13/2024 5:30 AM [facility] Calcium 7.3(L) 8.4 - 10.2 mg/dL 11/13/2024 5:30 AM [facility] Protein Total 4.6(L) 6.0 - 8.3 g/dL 11/13/2024 5:30 AM [facility] Albumin 2.0(L) 3.4 - 5.0 g/dL 11/13/2024 5:30 AM [facility] Bilirubin Total 0.7 0.2 - 1.2 mg/dL 11/13/2024 5:30 AM [facility] Alkaline Phosphatase 106 40 - 150 U/L 11/13/2024 5:30 AM [facility] ALT 99(H) 5 - 55 U/L 11/13/2024 5:30 AM [facility] AST 42(H) 5 - 34 U/L 11/13/2024 5:30 AM [facility] Anion Gap 5(L) 6 - 16 11/13/2024 5:30 AM [facility] BUN/Creatinine Ratio 10 7 - 23 11/13/2024 5:30 AM [facility] Osmolality Calculated 275 275 - 295 mOsm/kg 11/13/2024 5:30 AM CDT [facility] Albumin/Globulin Ratio 0.8(L) 1.1 - 2.3 11/13/2024 5:30 AM CDT [facility] eGFR by CKD-EPI 89(L) >=90 mL/min/1.7 3 m2 11/13/2024 5:30 AM CDT [facility] Comment:Estimated Glomerular Filtration Rate (eGFR) calculated using the CKD-EPI Creatinine Equation (2020), per the National Kidney Foundation and [place] [employer]ph[employer] recommendations. Blood BLOOD SPECIMEN / Unknown Lab Venipuncture / Unknown 11/13/2024 4:03 AM CDT 11/13/2024 4:51 AM CDT Lamberto Singh MD LAB - CHEMISTRY ORDERABLES F inal Result Performing Organization Address City/[facility] Co de Phone Number [address] [address], [facility] [phone] * PT-INR (11/13/2024 4:03 AM CDT) PT 14.2 12.1 - 14.8 Seconds 11/13/2024 5:13 AM CDT [facility] INR 1.1 See Comment 11/13/2024 5:13 AM CDT [facility] Comment:The suggested therap eutic range for standard coumadin (warfarin) therapy is an INR of 2.0-3.0. For high-risk patients (Mechanical Mitral Valve Prosthesis, etc.), the suggested prophylactic therapeutic range is an INR of 2.5-3.5. Blood BLOOD SPECIMEN / Unknown Lab Venipuncture / Unknown 11/13/2024 4:03 AM CDT 11/13/2024 4:47 AM CDT Lamberto Singh MD LAB - COAGULATION ORDERABLES Final Result Performing Organization Address City/[facility]/ZIP Co de Phone Number [address] [address], [place] [phone] * MAGNESIUM BLOOD (11/13/2024 4:03 AM CDT) Magnesium 2.0 1.6 - 2.6 mg/dL 11/13/2024 5:30 AM [facility] Blood BLOOD SPECIMEN / Unknown Lab Venipuncture / Unknown 11/13/2024 4:03 AM CDT 11/13/2024 4:51 AM CDT us Lamberto Singh MD LAB - CHEMISTRY ORDERABLES F inal Result [facility] [address] [place] [address] [phone] * (ABNORMAL) CBC W AUTO DIFFERENTIAL (11/13/2024 4:03 AM CDT) WBC 7.7 4.0 - 10.7 x10E9/L 11/13/2024 4:53 AM [facility] RBC Count 3.32(L) 4.30 - 5.80 x10E12/L 11/13/2024 4:53 AM [facility] Hemoglobin 10.0(L) 13.3 - 17.5 g/dL 11/13/2024 4:53 AM [facility] Hematocrit 29.8(L) 38.7 - 51.1 % 11/13/2024 4:53 AM [facility] MCV 89.8 80.0 - 98.0 fL 11/13/2024 4:53 AM [facility] MCH 30.1 26.7 - 33.6 pg 11/13/2024 4:53 AM [facility] MCHC 33.6 31.7 - 36.3 g/dL 11/13/2024 4:53 AM [facility] RDW-CV 15.6(H) 11.3 - 14.8 % 11/13/2024 4:53 AM [facility] Platelet Count 216 150 - 420 x10E9/L 11/13/2024 4:53 AM [facility] MPV 10.2 7.8 - 11.4 fL 11/13/2024 4:53 AM [facility] Neutrophil % 65.7 41.0 - 74.0 % 11/13/2024 4:53 AM [facility] Lymphocyte % 21.2 17.0 - 47.0 % 11/13/2024 4:53 AM [facility] Monocyte % 9.5 3.0 - 11.0 % 11/13/2024 4:53 AM [facility] Eosinophil % 1.6 0.0 - 7.0 % 11/13/2024 4:53 AM [facility] Basophil % 0.3 0.0 - 1.6 % 11/13/2024 4:53 AM [facility] Immature Granulocytes % 1.7(H) 0.0 - 1.0 % 11/13/2024 4:53 AM [facility] Neutrophil Absolute 5.07 1.60 - 7.50 x10E9/L 11/13/2024 4:53 AM [facility] Lymphocyte Absolute 1.63 1.00 - 4.40 x10E9/L 11/13/2024 4:53 AM [facility] Monocyte Absolute 0.73 0.15 - 1.00 x10E9/L 11/13/2024 4:53 AM [facility] Eosinophil Absolute 0.12 0.00 - 0.60 x10E9/L 11/13/2024 4:53 AM [facility] Basophil Absolute 0.02 0.00 - 0.13 x10E9/L 11/13/2024 4:53 AM [facility] Blood BLOOD SPECIMEN / Unknown Lab Venipuncture / Unknown 11/13/2024 4:03 AM CDT 11/13/2024 4:42 AM CDT us Lamberto Singh MD LAB - HEMATOLOGY ORDERABLES Final Result [facility] [address] [place] [address], [facility] [phone] * (ABNORMAL) GLUCOSE - POINT OF CARE (11/13/2024 12:20 AM CDT) Glucose WB/POC 119(H) 70 - 99 mg/dL 11/13/2024 12:22 AM CDT [facility] Specimen Type Arterial/C apillary 11/13/2024 12:22 AM CDT [facility] Blood BLOOD SPECIMEN / Unknown 11/13/2024 12:20 AM CDT 11/13/2024 12:22 AM CDT us Joel Cao III, MD LAB - POINT OF CARE ORD ERABLES Final Result Performing Organization Address City/[facility]/ZIP Co de Phone Number [address] [address], [facility] [phone] * (ABNORMAL) GLUCOSE - POINT OF CARE (11/12/2024 6:45 PM CDT) Glucose WB/POC 137(H) 70 - 99 mg/dL 11/12/2024 6:50 PM CDT [facility] Specimen Type Arterial/C apillary 11/12/2024 6:50 PM CDT [facility] Blood BLOOD SPECIMEN / Unknown 11/12/2024 6:45 PM CDT 11/12/2024 6:50 PM CDT us Joel Cao III, MD LAB - POINT OF CARE ORD ERABLES Final Result Performing Organization Address [facility] [place]/[facility] Co de Phone Number [address] [address], [place] [phone] * (ABNORMAL) GLUCOSE - POINT OF CARE (11/12/2024 12:24 PM CDT) Glucose WB/POC 172(H) 70 - 99 mg/dL 11/12/2024 12:31 PM CDT [facility] Specimen Type Arterial/C apillary 11/12/2024 12:31 PM CDT [facility] Blood BLOOD SPECIMEN / Unknown 11/12/2024 12:24 PM CDT 11/12/2024 12:31 PM CDT us Joel Cao III, MD LAB - POINT OF CARE ORD ERABLES Final Result [address] [address], [place] [phone] * (ABNORMAL) GLUCOSE - POINT OF CARE (11/12/2024 5:26 AM CDT) Pathologist [facility] Glucose WB/POC 110(H) 70 - 99 mg/dL 11/12/2024 5:27 AM CDT [facility] Specimen Type Arterial/C apillary 11/12/2024 5:27 AM CDT [facility] Blood BLOOD SPECIMEN / Unknown 11/12/2024 5:26 AM CDT 11/12/2024 5:27 AM CDT us Joel Cao III, MD LAB - POINT OF CARE ORD ERABLES Final Result Performing Organization Address [facility] [place]/[facility] Co de Phone Number [address] [address], [facility] [phone] * PHOSPHORUS BLOOD (11/12/2024 2:53 AM CDT) Pathologist [facility] Phosphorus 2.9 2.8 - 5.1 mg/dL 11/12/2024 3:50 AM CDT [facility] Blood BLOOD SPECIMEN / Unknown Lab Venipuncture / Unknown 11/12/2024 2:53 AM CDT 11/12/2024 3:21 AM CDT us Lamberto Singh MD LAB - CHEMISTRY ORDERABLES F inal Result Performing Organization Address [facility] [place]/[facility]/ZIP Co de Phone Number [address] [address], [place] [phone] * (ABNORMAL) COMPREHENSIVE METABOLIC PANEL (11/12/2024 2:53 AM CDT) Pathologist [facility] BUN 11 7 - 26 mg/dL 11/12/2024 3:50 AM CDT [facility] Creatinine 0.84 0.71 - 1.16 mg/dL 11/12/2024 3:50 AM CDT [facility] Sodium 132(L) 136 - 145 mmol/L 11/12/2024 3:50 AM [facility] Potassium 4.5 3.5 - 4.5 mmol/L 11/12/2024 3:50 AM [facility] Chloride 103 98 - 107 mmol/L 11/12/2024 3:50 AM [facility] CO2 24 22 - 29 mmol/L 11/12/2024 3:50 AM [facility] Glucose 103(H) 70 - 99 mg/dL 11/12/2024 3:50 AM [facility] Calcium 7.7(L) 8.4 - 10.2 mg/dL 11/12/2024 3:50 AM [facility] Protein Total 4.7(L) 6.0 - 8.3 g/dL 11/12/2024 3:50 AM [facility] Albumin 2.2(L) 3.4 - 5.0 g/dL 11/12/2024 3:50 AM [facility] Bilirubin Total 0.8 0.2 - 1.2 mg/dL 11/12/2024 3:50 AM [facility] Alkaline Phosphatase 109 40 - 150 U/L 11/12/2024 3:50 AM [facility] [facility] ALT 117(H) 5 - 55 U/L 11/12/2024 3:50 AM [facility] AST 43(H) 5 - 34 U/L 11/12/2024 3:50 AM [facility] Anion Gap 5(L) 6 - 16 11/12/2024 3:50 AM [facility] BUN/Creatinine Ratio 13 7 - 23 11/12/2024 3:50 AM [facility] Osmolality Calculated 274(L) 275 - 295 mOsm/kg 11/12/2024 3:50 AM [facility] Albumin/Globulin Ratio 0.9(L) 1.1 - 2.3 11/12/2024 3:50 AM [facility] eGFR by CKD-EPI 90 >=90 mL/min/1.7 3 m2 11/12/2024 3:50 AM [facility] Comment:Estimated Glomerular Filtration Rate (eGFR) calculated using the CKD-EPI Creatinine Equation (2020), per the National Kid[employer] Foundation and [place] [employer]ph[employer] recommendations. Blood BLOOD SPECIMEN / Unknown Lab Venipuncture / Unknown 11/12/2024 2:53 AM CDT 11/12/2024 3:21 AM CDT Lamberto Singh MD LAB - CHEMISTRY ORDERABLES F inal Result Performing Organization Address City/[facility]/ZIP Co de Phone Number [address] [address], [facility] [phone] * PT-INR (11/12/2024 2:53 AM CDT) PT 14.2 12.1 - 14.8 Seconds 11/12/2024 3:51 AM CDT [facility] INR 1.1 See Comment 11/12/2024 3:51 AM CDT [facility] Comment:The suggested therap eutic range for standard coumadin (warfarin) therapy is an INR of 2.0-3.0. For high-risk patients (Mechanical Mitral Valve Prosthesis, etc.), the suggested prophylactic therapeutic range is an INR of 2.5-3.5. Blood BLOOD SPECIMEN / Unknown Lab Venipuncture / Unknown 11/12/2024 2:53 AM CDT 11/12/2024 3:18 AM CDT Lamberto Singh MD LAB - COAGULATION ORDERABLES Final Result Performing Organization Address City/[facility]/ZIP Co de Phone Number [address] [address], [facility] [phone] * (ABNORMAL) MAGNESIUM BLOOD (11/12/2024 2:53 AM CDT) Magnesium 1.5(L) 1.6 - 2.6 mg/dL 11/12/2024 3:50 AM CDT [facility] Blood BLOOD SPECIMEN / Unknown Lab Venipuncture / Unknown 11/12/2024 2:53 AM CDT 11/12/2024 3:21 AM CDT Lamberto Singh MD LAB - CHEMISTRY ORDERABLES F inal Result [facility] [address] [place] [address] [phone] * (ABNORMAL) CBC W AUTO DIFFERENTIAL (11/12/2024 2:53 AM CDT) WBC 9.2 4.0 - 10.7 x10E9/L 11/12/2024 3:25 AM T [facility] RBC Count 3.46(L) 4.30 - 5.80 x10E12/L 11/12/2024 3:25 AM [facility] Hemoglobin 10.5(L) 13.3 - 17.5 g/dL 11/12/2024 3:25 AM [facility] Hematocrit 30.9(L) 38.7 - 51.1 % 11/12/2024 3:25 AM [facility] MCV 89.3 80.0 - 98.0 fL 11/12/2024 3:25 AM [facility] MCH 30.3 26.7 - 33.6 pg 11/12/2024 3:25 AM [facility] MCHC 34.0 31.7 - 36.3 g/dL 11/12/2024 3:25 AM [facility] RDW-CV 15.5(H) 11.3 - 14.8 % 11/12/2024 3:25 AM [facility] Platelet Count 194 150 - 420 x10E9/L 11/12/2024 3:25 AM [facility] MPV 10.0 7.8 - 11.4 fL 11/12/2024 3:25 AM [facility] Neutrophil % 69.7 41.0 - 74.0 % 11/12/2024 3:25 AM [facility] Lymphocyte % 14.5(L) 17.0 - 47.0 % 11/12/2024 3:25 AM [facility] Monocyte % 10.7 3.0 - 11.0 % 11/12/2024 3:25 AM [facility] Eosinophil % 1.1 0.0 - 7.0 % 11/12/2024 3:25 AM [facility] Basophil % 0.3 0.0 - 1.6 % 11/12/2024 3:25 AM [facility] Immature Granulocytes % 3.7(H) 0.0 - 1.0 % 11/12/2024 3:25 AM [facility] Neutrophil Absolute 6.42 1.60 - 7.50 x10E9/L 11/12/2024 3:25 AM [facility] Lymphocyte Absolute 1.34 1.00 - 4.40 x10E9/L 11/12/2024 3:25 AM [facility] Monocyte Absolute 0.99 0.15 - 1.00 x10E9/L 11/12/2024 3:25 AM [facility] Eosinophil Absolute 0.10 0.00 - 0.60 x10E9/L 11/12/2024 3:25 AM [facility] Basophil Absolute 0.03 0.00 - 0.13 x10E9/L 11/12/2024 3:25 AM [facility] Blood BLOOD SPECIMEN / Unknown Lab Venipuncture / Unknown 11/12/2024 2:53 AM CDT 11/12/2024 3:13 AM CDT us Lamberto Singh MD LAB - HEMATOLOGY ORDERABLES Final Result Performing Organization Address [facility] [place]/State/[facility] Co de Phone Number [facility] [address] [place] [address], [facility] [phone] * (ABNORMAL) GLUCOSE - POINT OF CARE (11/11/2024 11:57 PM CDT) Glucose WB/POC 115(H) 70 - 99 mg/dL 11/11/2024 11:58 PM CDT [facility] Specimen Type Arterial/C apillary 11/11/2024 11:58 PM T [facility] Blood BLOOD SPECIMEN / Unknown 11/11/2024 11:57 PM CDT 11/11/2024 11:58 PM CDT us Joel Cao III, MD LAB - POINT OF CARE ORD ERABLES Final Result Performing Organization Address [facility]/[facility]/ZIP Co de Phone Number [address] [address], [facility] [phone] * (ABNORMAL) GLUCOSE - POINT OF CARE (11/11/2024 6:18 PM CDT) Glucose WB/POC 123(H) 70 - 99 mg/dL 11/11/2024 6:22 PM CDT [facility] Specimen Type Arterial/C apillary 11/11/2024 6:22 PM CDT [facility] Blood BLOOD SPECIMEN / Unknown 11/11/2024 6:18 PM CDT 11/11/2024 6:22 PM CDT us Joel Cao III, MD LAB - POINT OF CARE ORD ERABLES Final Result Performing Organization Address [facility]/[facility]/ZIP Co de Phone Number [address] [address], [facility] [phone] * OSMOLALITY URINE (11/11/2024 12:35 PM CDT) Osmolality Urine 480 50 - 1,200 mOsm/kg 11/11/2024 1:32 PM CDT [facility] Urine URINE SPECIMEN OBTAINED BY CLEAN CATCH PROCEDURE / Unknown Collection / Unknown 11/11/2024 12:35 PM CDT 11/11/2024 12:46 PM CDT us Joel Cao III, MD LAB - URINE CHEMISTRY O RDERABLES Final Result Performing Organization Address [facility]/ZIP Co de Phone Number [address] [address], [facility] [phone] * SODIUM URINE RANDOM (11/11/2024 12:35 PM CDT) Sodium Urine 95 Not Established mmol/L 11/11/2024 1:23 PM CDT [facility] Urine URINE SPECIMEN OBTAINED BY CLEAN CATCH PROCEDURE / Unknown Collection / Unknown 11/11/2024 12:35 PM CDT 11/11/2024 12:46 PM CDT us Joel Cao III, MD LAB - URINE CHEMISTRY O RDERABLES Final Result Performing Organization Address City/[facility]/ZIP Co de Phone Number [address] [address], [place] [phone] * (ABNORMAL) GLUCOSE - POINT OF CARE (11/11/2024 11:28 AM CDT) Glucose WB/POC 160(H) 70 - 99 mg/dL 11/11/2024 11:29 AM CDT [facility] Specimen Type Arterial/C apillary 11/11/2024 11:29 AM CDT [facility] Blood BLOOD SPECIMEN / Unknown 11/11/2024 11:28 AM CDT 11/11/2024 11:29 AM CDT us Joel Cao III, MD LAB - POINT OF CARE ORD ERABLES Final Result Performing Organization Address [facility]/ZIP Co de Phone Number [address] [address], [place] [phone] * PHOSPHORUS BLOOD (11/11/2024 2:47 AM CDT) Phosphorus 2.8 2.8 - 5.1 mg/dL 11/11/2024 4:47 AM CDT [facility] Blood BLOOD SPECIMEN / Unknown Lab Venipuncture / Unknown 11/11/2024 2:47 AM CDT 11/11/2024 4:11 AM CDT us Lamberto Singh MD LAB - CHEMISTRY ORDERABLES F inal Result Performing Organization Address City/[facility]/ZIP Co de Phone Number [address] [address], [place] [phone] * (ABNORMAL) COMPREHENSIVE METABOLIC PANEL (11/11/2024 2:47 AM CDT) BUN 13 7 - 26 mg/dL 11/11/2024 4:47 AM [facility] Creatinine 0.89 0.71 - 1.16 mg/dL 11/11/2024 4:47 AM [facility] Sodium 129(L) 136 - 145 mmol/L 11/11/2024 4:47 AM [facility] Potassium 4.4 3.5 - 4.5 mmol/L 11/11/2024 4:47 AM [facility] Chloride 98 98 - 107 mmol/L 11/11/2024 4:47 AM [facility] CO2 25 22 - 29 mmol/L 11/11/2024 4:47 AM [facility] Glucose 96 70 - 99 mg/dL 11/11/2024 4:47 AM [facility] Calcium 7.5(L) 8.4 - 10.2 mg/dL 11/11/2024 4:47 AM [facility] Protein Total 4.9(L) 6.0 - 8.3 g/dL 11/11/2024 4:47 AM [facility] Albumin 2.1(L) 3.4 - 5.0 g/dL 11/11/2024 4:47 AM [facility] Bilirubin Total 0.9 0.2 - 1.2 mg/dL 11/11/2024 4:47 AM [facility] Alkaline Phosphatase 111 40 - 150 U/L 11/11/2024 4:47 AM [facility] ALT 145(H) 5 - 55 U/L 11/11/2024 4:47 AM [facility] AST 54(H) 5 - 34 U/L 11/11/2024 4:47 AM [facility] Anion Gap 6 6 - 16 11/11/2024 4:47 AM [facility] BUN/Creatinine Ratio 15 7 - 23 11/11/2024 4:47 AM [facility] Osmolality Calculated 268(L) 275 - 295 mOsm/kg 11/11/2024 4:47 AM [facility] Albumin/Globulin Ratio 0.8(L) 1.1 - 2.3 11/11/2024 4:47 AM [facility] eGFR by CKD-EPI 89(L) >=90 mL/min/1.7 3 m2 11/11/2024 4:47 AM CDT [facility] Comment:Estimated Glomerular Filtration Rate (eGFR) calculated using the CKD-EPI Creatinine Equation (2020), per the National Kidney Foundation and [place] [employer]ph[employer] recommendations. Blood BLOOD SPECIMEN / Unknown Lab Venipuncture / Unknown 11/11/2024 2:47 AM CDT 11/11/2024 4:11 AM CDT us Lamberto Singh MD LAB - CHEMISTRY ORDERABLES F inal Result [address] [address], [facility] [phone] * PT-INR (11/11/2024 2:47 AM CDT) PT 14.4 12.1 - 14.8 Seconds 11/11/2024 4:37 AM CDT [facility] INR 1.1 See Comment 11/11/2024 4:37 AM CDT [facility] Comment:The suggested therap eutic range for standard coumadin (warfarin) therapy is an INR of 2.0-3.0. For high-risk patients (Mechanical Mitral Valve Prosthesis, etc.), the suggested prophylactic therapeutic range is an INR of 2.5-3.5. Blood BLOOD SPECIMEN / Unknown Lab Venipuncture / Unknown 11/11/2024 2:47 AM CDT 11/11/2024 4:11 AM CDT us Lamberto Singh MD LAB - COAGULATION ORDERABLES Final Result [address] [address], [facility] [phone] * (ABNORMAL) MAGNESIUM BLOOD (11/11/2024 2:47 AM CDT) Magnesium 1.4(L) 1.6 - 2.6 mg/dL 11/11/2024 4:47 AM CDT [facility] Blood BLOOD SPECIMEN / Unknown Lab Venipuncture / Unknown 11/11/2024 2:47 AM CDT 11/11/2024 4:11 AM CDT us Lamberto Singh MD LAB - CHEMISTRY ORDERABLES F inal Result [facility] [address] [place] [address], [facility] [phone] * (ABNORMAL) CBC W AUTO DIFFERENTIAL (11/11/2024 2:47 AM CDT) WBC 12.0(H) 4.0 - 10.7 x10E9/L 11/11/2024 4:35 AM [facility] RBC Count 3.47(L) 4.30 - 5.80 x10E12/L 11/11/2024 4:35 AM [facility] Hemoglobin 10.3(L) 13.3 - 17.5 g/dL 11/11/2024 4:35 AM [facility] Hematocrit 30.4(L) 38.7 - 51.1 % 11/11/2024 4:35 AM [facility] MCV 87.6 80.0 - 98.0 fL 11/11/2024 4:35 AM [facility] MCH 29.7 26.7 - 33.6 pg 11/11/2024 4:35 AM [facility] MCHC 33.9 31.7 - 36.3 g/dL 11/11/2024 4:35 AM [facility] RDW-CV 15.1(H) 11.3 - 14.8 % 11/11/2024 4:35 AM [facility] Platelet Count 180 150 - 420 x10E9/L 11/11/2024 4:35 AM [facility] MPV 10.5 7.8 - 11.4 fL 11/11/2024 4:35 AM [facility] Neutrophil % 69.7 41.0 - 74.0 % 11/11/2024 4:35 AM [facility] Lymphocyte % 14.4(L) 17.0 - 47.0 % 11/11/2024 4:35 AM [facility] Monocyte % 11.2(H) 3.0 - 11.0 % 11/11/2024 4:35 AM [facility] Eosinophil % 0.6 0.0 - 7.0 % 11/11/2024 4:35 AM [facility] Basophil % 0.4 0.0 - 1.6 % 11/11/2024 4:35 AM [facility] Immature Granulocytes % 3.7(H) 0.0 - 1.0 % 11/11/2024 4:35 AM [facility] Neutrophil Absolute 8.35(H) 1.60 - 7.50 x10E9/L 11/11/2024 4:35 AM [facility] Lymphocyte Absolute 1.72 1.00 - 4.40 x10E9/L 11/11/2024 4:35 AM [facility] Monocyte Absolute 1.34(H) 0.15 - 1.00 x10E9/L 11/11/2024 4:35 AM [facility] Eosinophil Absolute 0.07 0.00 - 0.60 x10E9/L 11/11/2024 4:35 AM [facility] Basophil Absolute 0.05 0.00 - 0.13 x10E9/L 11/11/2024 4:35 AM [facility] Blood BLOOD SPECIMEN / Unknown Lab Venipuncture / Unknown 11/11/2024 2:47 AM CDT 11/11/2024 4:12 AM CDT us Lamberto Singh MD LAB - HEMATOLOGY ORDERABLES Final Result [facility] [address] [place] [address], [facility] [phone] * (ABNORMAL) GLUCOSE - POINT OF CARE (11/10/2024 8:23 PM CDT) Pathologist [facility] Glucose WB/POC 119(H) 70 - 99 mg/dL 11/10/2024 8:25 PM [facility] Specimen Type Arterial/C apillary 11/10/2024 8:25 PM CDT [facility] Blood BLOOD SPECIMEN / Unknown 11/10/2024 8:23 PM CDT 11/10/2024 8:25 PM CDT us Joel Cao III, MD LAB - POINT OF CARE ORD ERABLES Final Result [address] [address], [place] [phone] * (ABNORMAL) GLUCOSE - POINT OF CARE (11/10/2024 4:25 PM CDT) Glucose WB/POC 146(H) 70 - 99 mg/dL 11/10/2024 4:26 PM CDT [facility] Specimen Type Arterial/C apillary 11/10/2024 4:26 PM CDT [facility] Blood BLOOD SPECIMEN / Unknown 11/10/2024 4:25 PM CDT 11/10/2024 4:26 PM CDT us Joel Cao III, MD LAB - POINT OF CARE ORD ERABLES Final Result Performing Organization Address City/[facility]/ZIP Co de Phone Number [address] [address], [place] [phone] * (ABNORMAL) GLUCOSE - POINT OF CARE (11/10/2024 11:48 AM CDT) Glucose WB/POC 137(H) 70 - 99 mg/dL 11/10/2024 11:50 AM CDT [facility] Specimen Type Arterial/C apillary 11/10/2024 11:50 AM CDT [facility] Blood BLOOD SPECIMEN / Unknown 11/10/2024 11:48 AM CDT 11/10/2024 11:50 AM CDT us Joel Cao III, MD LAB - POINT OF CARE ORD ERABLES Final Result [address] [address], [facility] [phone] * (ABNORMAL) GLUCOSE - POINT OF CARE (11/10/2024 6:10 AM CDT) [facility] Glucose WB/POC 100(H) 70 - 99 mg/dL 11/10/2024 6:12 AM CDT [facility] Specimen Type Arterial/C apillary 11/10/2024 6:12 AM T [facility] Blood BLOOD SPECIMEN / Unknown 11/10/2024 6:10 AM CDT 11/10/2024 6:12 AM CDT Joel Cao III, MD LAB - POINT OF CARE ORD ERABLES Final Result [address] [address], [facility] [phone] * (ABNORMAL) DIFFERENTIAL MANUAL (11/10/2024 2:41 AM CDT) [facility] Neutrophil % 88(H) 41 - 74 % 11/10/2024 4:28 AM [facility] Lymphocyte % 6(L) 17 - 47 % 11/10/2024 4:28 AM [facility] Monocyte % 4 3 - 11 % 11/10/2024 4:28 AM [facility] Eosinophil % 1 0 - 7 % 11/10/2024 4:28 AM [facility] Metamyelocyte % 1(H) 0% % 4:28 AM [facility] Neutrophil Absolute 9.42(H) 1.60 - 7.50 x10E9/L 11/10/2024 4:28 AM [facility] Lymphocyte Absolute 0.64(L) 1.00 - 4.40 x10E9/L 11/10/2024 4:28 AM [facility] Monocyte Absolute 0.43 0.15 - 1.00 x10E9/L 11/10/2024 4:28 AM [facility] Eosinophil Absolute 0.11 0.00 - 0.60 x10E9/L 11/10/2024 4:28 AM CDT [facility] RBC Morphology REVIEWED 11/10/2024 4:28 AM CDT [facility] Schistocytes FEW(A) (none) 11/10/2024 4:28 AM CDT [facility] Blood BLOOD SPECIMEN / Unknown Lab Venipuncture / Unknown 11/10/2024 2:41 AM CDT 11/10/2024 3:55 AM CDT Lamberto Singh MD LAB - HEMATOLOGY ORDERABLES Final Result Performing Organization Address [facility]/[facility]/ZIP Co de Phone Number [address] [address], [facility] [phone] * PHOSPHORUS BLOOD (11/10/2024 2:41 AM CDT) Phosphorus 3.1 2.8 - 5.1 mg/dL 11/10/2024 4:29 AM T [facility] Blood BLOOD SPECIMEN / Unknown Lab Venipuncture / Unknown 11/10/2024 2:41 AM CDT 11/10/2024 3:59 AM CDT Lamberto Singh MD LAB - CHEMISTRY ORDERABLES F inal Result Performing Organization Address [facility]/ZIP Co de Phone Number [address] [address], [facility] [phone] * (ABNORMAL) COMPREHENSIVE METABOLIC PANEL (11/10/2024 2:41 AM CDT) BUN 15 7 - 26 mg/dL 11/10/2024 4:29 AM T [facility] Creatinine 0.82 0.71 - 1.16 mg/dL 11/10/2024 4:29 AM [facility] Sodium 129(L) 136 - 145 mmol/L 11/10/2024 4:29 AM T [facility] Potassium 3.2(L) 3.5 - 4.5 mmol/L 11/10/2024 4:29 AM T [facility] Chloride 96(L) 98 - 107 mmol/L 11/10/2024 4:29 AM [facility] CO2 26 22 - 29 mmol/L 11/10/2024 4:29 AM [facility] Glucose 90 70 - 99 mg/dL 11/10/2024 4:29 AM [facility] Calcium 7.2(L) 8.4 - 10.2 mg/dL 11/10/2024 4:29 AM [facility] Protein Total 4.7(L) 6.0 - 8.3 g/dL 11/10/2024 4:29 AM [facility] Albumin 2.0(L) 3.4 - 5.0 g/dL 11/10/2024 4:29 AM [facility] Bilirubin Total 0.9 0.2 - 1.2 mg/dL 11/10/2024 4:29 AM [facility] Alkaline Phosphatase 97 40 - 150 U/L 11/10/2024 4:29 AM [facility] ALT 165(H) 5 - 55 U/L 11/10/2024 4:29 AM [facility] AST 51(H) 5 - 34 U/L 11/10/2024 4:29 AM [facility] Anion Gap 7 6 - 16 11/10/2024 4:29 AM [facility] BUN/Creatinine Ratio 18 7 - 23 11/10/2024 4:29 AM [facility] Osmolality Calculated 268(L) 275 - 295 mOsm/kg 11/10/2024 4:29 AM [facility] Albumin/Globulin Ratio 0.7(L) 1.1 - 2.3 11/10/2024 4:29 AM [facility] eGFR by CKD-EPI >90 >=90 mL/min/1.7 3 m2 11/10/2024 4:29 AM [facility] Comment:Estimated Glomerular Filtration Rate (eGFR) calculated using the CKD-EPI Creatinine Equation (2020), per the National Kidney Foundation and [place] [employer]ph[employer] recommendations. Blood BLOOD SPECIMEN / Unknown Lab Venipuncture / Unknown 11/10/2024 2:41 AM T 11/10/2024 3:59 AM CDT us Lamberto Singh MD LAB - CHEMISTRY ORDERABLES F inal Result Performing Organization Address City/[facility]/ZIP Co de Phone Number [address] [address], [facility] [phone] * (ABNORMAL) PT-INR (11/10/2024 2:41 AM CDT) PT 15.1(H) 12.1 - 14.8 Seconds 11/10/2024 4:35 AM CDT [facility] INR 1.2 See Comment 11/10/2024 4:35 AM CDT [facility] Comment:The suggested therap eutic range for standard coumadin (warfarin) therapy is an INR of 2.0-3.0. For high-risk patients (Mechanical Mitral Valve Prosthesis, etc.), the suggested prophylactic therapeutic range is an INR of 2.5-3.5. Blood BLOOD SPECIMEN / Unknown Lab Venipuncture / Unknown 11/10/2024 2:41 AM CDT 11/10/2024 4:00 AM CDT us Lamberto Singh MD LAB - COAGULATION ORDERABLES Final Result Performing Organization Address [facility] Co de Phone Number [address] [address], [facility] [phone] * (ABNORMAL) MAGNESIUM BLOOD (11/10/2024 2:41 AM CDT) Magnesium 1.5(L) 1.6 - 2.6 mg/dL 11/10/2024 4:29 AM CDT [facility] Blood BLOOD SPECIMEN / Unknown Lab Venipuncture / Unknown 11/10/2024 2:41 AM CDT 11/10/2024 3:59 AM CDT us Lamberto Singh MD LAB - CHEMISTRY ORDERABLES F inal Result Performing Organization Address City/[facility]/ZIP Co de Phone Number [address] [address], [facility] [phone] * (ABNORMAL) CBC W AUTO DIFFERENTIAL (11/10/2024 2:41 AM CDT) [facility] WBC 10.7 4.0 - 10.7 x10E9/L 11/10/2024 4:28 AM [facility] RBC Count 3.66(L) 4.30 - 5.80 x10E12/L 11/10/2024 4:28 AM [facility] Hemoglobin 10.6(L) 13.3 - 17.5 g/dL 11/10/2024 4:28 AM [facility] Hematocrit 32.3(L) 38.7 - 51.1 % 11/10/2024 4:28 AM [facility] MCV 88.3 80.0 - 98.0 fL 11/10/2024 4:28 AM [facility] MCH 29.0 26.7 - 33.6 pg 11/10/2024 4:28 AM [facility] MCHC 32.8 31.7 - 36.3 g/dL 11/10/2024 4:28 AM [facility] RDW-CV 15.0(H) 11.3 - 14.8 % 11/10/2024 4:28 AM [facility] Platelet Count 143(L) 150 - 420 x10E9/L 11/10/2024 4:28 AM [facility] MPV 10.6 7.8 - 11.4 fL 11/10/2024 4:28 AM [facility] Blood BLOOD SPECIMEN / Unknown Lab Venipuncture / Unknown 11/10/2024 2:41 AM CDT 11/10/2024 3:55 AM CDT us Lamberto Singh MD LAB - HEMATOLOGY ORDERABLES Final Result [facility] [address] [address], [facility] [phone] * (ABNORMAL) GLUCOSE - POINT OF CARE (11/10/2024 12:30 AM CDT) [facility] Glucose WB/POC 107(H) 70 - 99 mg/dL 11/10/2024 12:35 AM CDT [facility] Specimen Type Arterial/C apillary 11/10/2024 12:35 AM CDT [facility] Blood BLOOD SPECIMEN / Unknown 11/10/2024 12:30 AM CDT 11/10/2024 12:35 AM CDT us Joel Cao III, MD LAB - POINT OF CARE ORD ERABLES Final Result Performing Organization Address [facility] [place]/ZIP Co de Phone Number [address] [address], [place] [phone] * (ABNORMAL) GLUCOSE - POINT OF CARE (11/09/2024 5:50 PM CDT) Glucose WB/POC 146(H) 70 - 99 mg/dL 11/09/2024 5:55 PM CDT [facility] Specimen Type Arterial/C apillary 11/09/2024 5:55 PM CDT [facility] Blood BLOOD SPECIMEN / Unknown 11/09/2024 5:50 PM CDT 11/09/2024 5:55 PM CDT us Joel Cao III, MD LAB - POINT OF CARE ORD ERABLES Final Result Performing Organization Address [facility] [place] Co de Phone Number [address] [address], [place] [phone] * (ABNORMAL) GLUCOSE - POINT OF CARE (11/09/2024 1:01 PM CDT) Glucose WB/POC 113(H) 70 - 99 mg/dL 11/09/2024 1:05 PM CDT [facility] Specimen Type Arterial/C apillary 11/09/2024 1:05 PM CDT [facility] Blood BLOOD SPECIMEN / Unknown 11/09/2024 1:01 PM CDT 11/09/2024 1:05 PM CDT us Joel Cao III, MD LAB - POINT OF CARE ORD ERABLES Final Result [facility] [address] [place] [id number], [facility] [phone] * (ABNORMAL) DIFFERENTIAL MANUAL (11/09/2024 2:59 AM CDT) Neutrophil % 71 41 - 74 % 11/09/2024 4:22 AM T [facility] Lymphocyte % 11(L) 17 - 47 % 11/09/2024 4:22 AM T [facility] Monocyte % 15(H) 3 - 11 % 11/09/2024 4:22 AM T [facility] Basophil % 1 0 - 2 % 11/09/2024 4:22 AM T [facility] Metamyelocyte % 1(H) 0% % 4:22 AM [facility] Myelocyte % 1(H) 0% % 11/09/2024 4:22 AM T [facility] Neutrophil Absolute 7.74(H) 1.60 - 7.50 x10E9/L 11/09/2024 4:22 AM T [facility] Lymphocyte Absolute 1.20 1.00 - 4.40 x10E9/L 11/09/2024 4:22 AM [facility] Monocyte Absolute 1.64(H) 0.15 - 1.00 x10E9/L 11/09/2024 4:22 AM [facility] Basophil Absolute 0.11 0.00 - 0.13 x10E9/L 11/09/2024 4:22 AM [facility] RBC Morphology REVIEWED 11/09/2024 4:22 AM T [facility] Marlys Cells MODERATE(A) (none) 11/09/2024 4:22 AM [facility] Blood BLOOD SPECIMEN / Unknown Lab Venipuncture / Unknown 11/09/2024 2:59 AM CDT 11/09/2024 3:25 AM CDT us Lamberto Singh MD LAB - HEMATOLOGY ORDERABLES Final Result [address] [address], [facility] [phone] * (ABNORMAL) PHOSPHORUS BLOOD (11/09/2024 2:59 AM CDT) [facility] Phosphorus 2.6(L) 2.8 - 5.1 mg/dL 11/09/2024 3:59 AM T [facility] Blood BLOOD SPECIMEN / Unknown Lab Venipuncture / Unknown 11/09/2024 2:59 AM CDT 11/09/2024 3:24 AM CDT Lamberto Singh MD LAB - CHEMISTRY ORDERABLES F inal Result Performing Organization Address [facility] [place] Co de Phone Number [address] [address], [facility] [phone] * (ABNORMAL) COMPREHENSIVE METABOLIC PANEL (11/09/2024 2:59 AM CDT) [facility] BUN 17 7 - 26 mg/dL 11/09/2024 3:59 AM [facility] Creatinine 0.84 0.71 - 1.16 mg/dL 11/09/2024 3:59 AM [facility] Sodium 129(L) 136 - 145 mmol/L 11/09/2024 3:59 AM [facility] Potassium 3.5 3.5 - 4.5 mmol/L 11/09/2024 3:59 AM [facility] Chloride 97(L) 98 - 107 mmol/L 11/09/2024 3:59 AM [facility] CO2 26 22 - 29 mmol/L 11/09/2024 3:59 AM [facility] Glucose 101(H) 70 - 99 mg/dL 11/09/2024 3:59 AM [facility] Calcium 7.3(L) 8.4 - 10.2 mg/dL 11/09/2024 3:59 AM [facility] Protein Total 4.7(L) 6.0 - 8.3 g/dL 11/09/2024 3:59 AM [facility] Albumin 2.2(L) 3.4 - 5.0 g/dL 11/09/2024 3:59 AM [facility] Bilirubin Total 1.1 0.2 - 1.2 mg/dL 11/09/2024 3:59 AM [facility] Alkaline Phosphatase 114 40 - 150 U/L 11/09/2024 3:59 AM [facility] ALT 226(H) 5 - 55 U/L 11/09/2024 3:59 AM [facility] AST 63(H) 5 - 34 U/L 11/09/2024 3:59 AM [facility] Anion Gap 6 6 - 16 11/09/2024 3:59 AM [facility] BUN/Creatinine Ratio 20 7 - 23 11/09/2024 3:59 AM [facility] Osmolality Calculated 270(L) 275 - 295 mOsm/kg 11/09/2024 3:59 AM [facility] Albumin/Globulin Ratio 0.9(L) 1.1 - 2.3 11/09/2024 3:59 AM [facility] eGFR by CKD-EPI 90 >=90 mL/min/1.7 3 m2 11/09/2024 3:59 AM [facility] Comment:Estimated Glomerular Filtration Rate (eGFR) calculated using the CKD-EPI Creatinine Equation (2020), per the National Kidney Foundation and [place] [employer] Neph[employer] recommendations. Blood BLOOD SPECIMEN / Unknown Lab Venipuncture / Unknown 11/09/2024 2:59 AM CDT 11/09/2024 3:24 AM CDT us Lamberto Singh MD LAB - CHEMISTRY ORDERABLES F inal Result [facility] [address] [place] [address], [facility] [phone] * (ABNORMAL) PT-INR (11/09/2024 2:59 AM CDT) PT 15.0(H) 12.1 - 14.8 Seconds 11/09/2024 3:50 AM [facility] INR 1.2 See Comment 11/09/2024 3:50 AM CDT [facility] Comment:The suggested therap eutic range for standard coumadin (warfarin) therapy is an INR of 2.0-3.0. For high-risk patients (Mechanical Mitral Valve Prosthesis, etc.), the suggested prophylactic therapeutic range is an INR of 2.5-3.5. Blood BLOOD SPECIMEN / Unknown Lab Venipuncture / Unknown 11/09/2024 2:59 AM CDT 11/09/2024 3:24 AM CDT Lamberto Singh MD LAB - COAGULATION ORDERABLES Final Result Performing Organization Address [facility] [place]/ZIP Co de Phone Number [address] [address], [facility] [phone] * (ABNORMAL) MAGNESIUM BLOOD (11/09/2024 2:59 AM CDT) Magnesium 1.5(L) 1.6 - 2.6 mg/dL 11/09/2024 3:59 AM CDT [facility] Blood BLOOD SPECIMEN / Unknown Lab Venipuncture / Unknown 11/09/2024 2:59 AM CDT 11/09/2024 3:24 AM CDT us Lamberto Singh MD LAB - CHEMISTRY ORDERABLES F inal Result Performing Organization Address [facility] [place]/ZIP Co de Phone Number [address] [address], [facility] [phone] * (ABNORMAL) CBC W AUTO DIFFERENTIAL (11/09/2024 2:59 AM CDT) WBC 10.9(H) 4.0 - 10.7 x10E9/L 11/09/2024 4:22 AM CDT [facility] RBC Count 3.72(L) 4.30 - 5.80 x10E12/L 11/09/2024 4:22 AM T [facility] Hemoglobin 10.9(L) 13.3 - 17.5 g/dL 11/09/2024 4:22 AM [facility] Hematocrit 32.5(L) 38.7 - 51.1 % 11/09/2024 4:22 AM [facility] MCV 87.4 80.0 - 98.0 fL 11/09/2024 4:22 AM [facility] MCH 29.3 26.7 - 33.6 pg 11/09/2024 4:22 AM [facility] MCHC 33.5 31.7 - 36.3 g/dL 11/09/2024 4:22 AM [facility] RDW-CV 15.0(H) 11.3 - 14.8 % 11/09/2024 4:22 AM [facility] Platelet Count 125(L) 150 - 420 x10E9/L 11/09/2024 4:22 AM [facility] MPV 10.7 7.8 - 11.4 fL 11/09/2024 4:22 AM [facility] Blood BLOOD SPECIMEN / Unknown Lab Venipuncture / Unknown 11/09/2024 2:59 AM CDT 11/09/2024 3:25 AM CDT us Lamberto Singh MD LAB - HEMATOLOGY ORDERABLES Final Result [address] [address], [facility] [phone] * (ABNORMAL) GLUCOSE - POINT OF CARE (11/09/2024 12:48 AM CDT) Glucose WB/POC 118(H) 70 - 99 mg/dL 11/09/2024 12:49 AM [facility] Specimen Type Arterial/C apillary 11/09/2024 12:49 AM [facility] Blood BLOOD SPECIMEN / Unknown 11/09/2024 12:48 AM CDT 11/09/2024 12:49 AM CDT us Joel Cao III, MD LAB - POINT OF CARE ORD ERABLES Final Result [address] [place] [address], [facility] [phone] * VAS Carotid Duplex Bilateral (11/08/2024 1:01 [...] ORDERABLES Aron fátima Result - Final * (ABNORMAL) GLUCOSE - POINT OF CARE (11/08/2024 11:40 AM CDT) Glucose WB/POC 189(H) 70 - 99 mg/dL 11/08/2024 11:52 AM CDT [facility] Specimen Type Arterial/C apillary 11/08/2024 11:52 AM CDT [facility] Blood BLOOD SPECIMEN / Unknown 11/08/2024 11:40 AM CDT 11/08/2024 11:52 AM CDT Joel Cao III, MD LAB - POINT OF CARE ORD ERABLES Final Result [facility] [address] [place] [address], [facility] [phone] * Simple PFT (11/08/2024 9:37 AM CDT) Impressions Linda Tran DO - 11/08/2024 9:37 AM CDT .[facility] DEPARTMENT OF PULMONARY, CRITICAL CARE, AND SLEEP [...] of Pulmonary, Critical Care, and Sleep Medicine [facility] I have personally reviewed the fellow's interpretation of the test and made any necessary changes when needed. Linda Tran DO Plumbing Designerlaunderette attendant Division of Pulmonary, Critical Care and Sleep Medicine [facility] Narrative Linda Tran DO - 11/08/2024 9:37 [...] Dictated by Cinthia Yan Dr, MD (resident associate). I, E. Isin Akduman, MD have personally reviewed and interpreted this examination/study. > Interpreting Provider: Zan Cortes MD on 11/08/2024 10:51 PM Narrative 11/08/2024 10:51 PM CDT PROCEDURE: CT CHEST WO CONTRAST, DATE/TIME OF EXAM: 11/08/2024 8:47 AM, LOCATION [facility] INDICATION: I50.20: Heart failure with reduced [...] DATE/TIME OF EXAM: 11/08/2024 8:47 AM, LOCATION [facility] INDICATION: I50.20: Heart failure with reduced [...] measures 2.7 x 3.1 cm incidental density [id number] Hounsfield units, indeterminate. Impression: 1.Mild atherosclerotic calcification [...] Dictated by Cinthia Yan Dr, MD (resident associate). IZan MD have personally reviewed and interpreted this examination/study. > Interpreting Provider: Zan Cortes MD on 11/08/2024 10:51 PM Juarez Borja PA-C CT ORDERABLES Final Resul t * (ABNORMAL) GLUCOSE - POINT OF CARE (11/08/2024 5:28 AM CDT) Glucose WB/POC 107(H) 70 - 99 mg/dL 11/08/2024 5:29 AM CDT [facility] Specimen Type Arterial/C apillary 11/08/2024 5:29 AM CDT [facility] Blood BLOOD SPECIMEN / Unknown 11/08/2024 5:28 AM CDT 11/08/2024 5:29 AM CDT us Joel Cao III, MD LAB - POINT OF CARE ORD ERABLES Final Result [address] [address], [facility] [phone] * (ABNORMAL) DIFFERENTIAL MANUAL (11/08/2024 3:01 AM CDT) [facility] Neutrophil % 63 41 - 74 % 11/08/2024 6:10 AM [facility] Lymphocyte % 27 17 - 47 % 11/08/2024 6:10 AM [facility] Monocyte % 10 3 - 11 % 11/08/2024 6:10 AM [facility] Neutrophil Absolute 6.49 1.60 - 7.50 x10E9/L 11/08/2024 6:10 AM [facility] Lymphocyte Absolute 2.78 1.00 - 4.40 x10E9/L 11/08/2024 6:10 AM [facility] Monocyte Absolute 1.03(H) 0.15 - 1.00 x10E9/L 11/08/2024 6:10 AM [facility] RBC Morphology NORMAL 11/08/2024 6:10 AM T [facility] Blood BLOOD SPECIMEN / Unknown Lab Venipuncture / Unknown 11/08/2024 3:01 AM CDT 11/08/2024 3:57 AM CDT us Lamberto Singh MD LAB - HEMATOLOGY ORDERABLES Final Result [address] [address], [facility] [phone] * (ABNORMAL) PHOSPHORUS BLOOD (11/08/2024 3:01 AM CDT) [facility] Phosphorus 2.5(L) 2.8 - 5.1 mg/dL 11/08/2024 4:24 AM [facility] Blood BLOOD SPECIMEN / Unknown Lab Venipuncture / Unknown 11/08/2024 3:01 AM CDT 11/08/2024 3:53 AM CDT Lamberto Singh MD LAB - CHEMISTRY ORDERABLES F inal Result Performing Organization Address [facility] [place]/[facility]/ZIP Co de Phone Number [address] [address], [facility] [phone] * (ABNORMAL) COMPREHENSIVE METABOLIC PANEL (11/08/2024 3:01 AM CDT) [facility] BUN 24 7 - 26 mg/dL 11/08/2024 4:24 AM [facility] Creatinine 0.88 0.71 - 1.16 mg/dL 11/08/2024 4:24 AM [facility] Sodium 134(L) 136 - 145 mmol/L 11/08/2024 4:24 AM [facility] Potassium 3.2(L) 3.5 - 4.5 mmol/L 11/08/2024 4:24 AM [facility] Chloride 97(L) 98 - 107 mmol/L 11/08/2024 4:24 AM [facility] CO2 27 22 - 29 mmol/L 11/08/2024 4:24 AM [facility] Glucose 104(H) 70 - 99 mg/dL 11/08/2024 4:24 AM [facility] Calcium 7.1(L) 8.4 - 10.2 mg/dL 11/08/2024 4:24 AM [facility] Protein Total 4.5(L) 6.0 - 8.3 g/dL 11/08/2024 4:24 AM [facility] Albumin 2.1(L) 3.4 - 5.0 g/dL 11/08/2024 4:24 AM [facility] Bilirubin Total 1.3(H) 0.2 - 1.2 mg/dL 11/08/2024 4:24 AM [facility] Alkaline Phosphatase 107 40 - 150 U/L 11/08/2024 4:24 AM [facility] ALT 287(H) 5 - 55 U/L 11/08/2024 4:24 AM [facility] AST 55(H) 5 - 34 U/L 11/08/2024 4:24 AM [facility] Anion Gap 10 6 - 16 11/08/2024 4:24 AM [facility] BUN/Creatinine Ratio 27(H) 7 - 11/08/2024 4:24 AM [facility] Osmolality Calculated 282 275 - 295 mOsm/kg 11/08/2024 4:24 AM [facility] Albumin/Globulin Ratio 0.9(L) 1.1 - 2.3 11/08/2024 4:24 AM [facility] eGFR by CKD-EPI 89(L) >=90 mL/min/1.7 3 m2 11/08/2024 4:24 AM [facility] Comment:Estimated Glomerular Filtration Rate (eGFR) calculated using the CKD-EPI Creatinine Equation (2020), per the National Kidney Foundation and [place] [employer] Neph[employer] recommendations. Blood BLOOD SPECIMEN / Unknown Lab Venipuncture / Unknown 11/08/2024 3:01 AM CDT 11/08/2024 3:53 AM CDT us Lamberto Singh MD LAB - CHEMISTRY ORDERABLES F inal Result [facility] [address] [place] [address], [facility] [phone] * (ABNORMAL) PT-INR (11/08/2024 3:01 AM CDT) PT 15.6(H) 12.1 - 14.8 Seconds 11/08/2024 4:35 AM [facility] INR 1.3 See Comment 11/08/2024 4:35 AM [facility] Comment:The suggested therap eutic range for standard coumadin (warfarin) therapy is an INR of 2.0-3.0. For high-risk patients (Mechanical Mitral Valve Prosthesis, etc.), the suggested prophylactic therapeutic range is an INR of 2.5-3.5. Blood BLOOD SPECIMEN / Unknown Lab Venipuncture / Unknown 11/08/2024 3:01 AM CDT 11/08/2024 3:53 AM CDT Lamberto Singh MD LAB - COAGULATION ORDERABLES Final Result Performing Organization Address [facility]/[facility]/ZIP Co de Phone Number [address] [address], [facility] [phone] * (ABNORMAL) MAGNESIUM BLOOD (11/08/2024 3:01 AM CDT) Magnesium 1.5(L) 1.6 - 2.6 mg/dL 11/08/2024 4:24 AM [facility] Blood BLOOD SPECIMEN / Unknown Lab Venipuncture / Unknown 11/08/2024 3:01 AM CDT 11/08/2024 3:53 AM CDT us Lamberto Singh MD LAB - CHEMISTRY ORDERABLES F inal Result Performing Organization Address [facility]/ZIP Co de Phone Number [address] [address], [facility] [phone] * (ABNORMAL) CBC W AUTO DIFFERENTIAL (11/08/2024 3:01 AM CDT) WBC 10.3 4.0 - 10.7 x10E9/L 11/08/2024 6:11 AM [facility] RBC Count 3.82(L) 4.30 - 5.80 x10E12/L 11/08/2024 6:11 AM [facility] Hemoglobin 11.3(L) 13.3 - 17.5 g/dL 11/08/2024 6:11 AM [facility] Hematocrit 33.6(L) 38.7 - 51.1 % 11/08/2024 6:11 AM [facility] MCV 88.0 80.0 - 98.0 fL 11/08/2024 6:11 AM [facility] MCH 29.6 26.7 - 33.6 pg 11/08/2024 6:11 AM [facility] MCHC 33.6 31.7 - 36.3 g/dL 11/08/2024 6:11 AM [facility] RDW-CV 15.0(H) 11.3 - 14.8 % 11/08/2024 6:11 AM [facility] Platelet Count 106(L) 150 - 420 x10E9/L 11/08/2024 6:11 AM [facility] MPV 11.0 7.8 - 11.4 fL 11/08/2024 6:11 AM [facility] Blood BLOOD SPECIMEN / Unknown Lab Venipuncture / Unknown 11/08/2024 3:01 AM CDT 11/08/2024 3:57 AM CDT us Lamberto Singh MD LAB - HEMATOLOGY ORDERABLES Final Result [address] [address], [facility] [phone] * (ABNORMAL) GLUCOSE - POINT OF CARE (11/08/2024 12:11 AM CDT) Glucose WB/POC 112(H) 70 - 99 mg/dL 11/08/2024 12:12 AM T [facility] Specimen Type Arterial/C apillary 11/08/2024 12:12 AM T [facility] Blood BLOOD SPECIMEN / Unknown 11/08/2024 12:11 AM CDT 11/08/2024 12:12 AM CDT us Joel Cao III, MD LAB - POINT OF CARE ORD ERABLES Final Result [address] [address], [place] [phone] * (ABNORMAL) GLUCOSE - POINT OF CARE (11/07/2024 7:44 PM CDT) Glucose WB/POC 117(H) 70 - 99 mg/dL 11/07/2024 7:48 PM CDT [facility] Specimen Type Arterial/C apillary 11/07/2024 7:48 PM CDT [facility] Blood BLOOD SPECIMEN / Unknown 11/07/2024 7:44 PM CDT 11/07/2024 7:48 PM CDT us Joel Cao III, MD LAB - POINT OF CARE ORD ERABLES Final Result [address] [address], [place] [phone] * (ABNORMAL) GLUCOSE - POINT OF CARE (11/07/2024 4:40 PM CDT) Glucose WB/POC 160(H) 70 - 99 mg/dL 11/07/2024 4:44 PM CDT [facility] Specimen Type Arterial/C apillary 11/07/2024 4:44 PM CDT [facility] Blood BLOOD SPECIMEN / Unknown 11/07/2024 4:40 PM CDT 11/07/2024 4:44 PM CDT us Joel Cao III, MD LAB - POINT OF CARE ORD ERABLES Final Result [address] [address], [place] [phone] * (ABNORMAL) GLUCOSE - POINT OF CARE (11/07/2024 12:33 PM CDT) Glucose WB/POC 120(H) 70 - 99 mg/dL 11/07/2024 12:35 PM CDT [facility] Specimen Type Arterial/C apillary 11/07/2024 12:35 PM [facility] Blood BLOOD SPECIMEN / Unknown 11/07/2024 12:33 PM CDT 11/07/2024 12:35 PM CDT us Joel Cao III, MD LAB - POINT OF CARE ORD ERABLES Final Result [address] [address], [facility] [phone] * (ABNORMAL) DIFFERENTIAL MANUAL (11/07/2024 8:43 AM CDT) Neutrophil % 83(H) 41 - 74 % 11/07/2024 10:02 AM [facility] Lymphocyte % 3(L) 17 - 47 % 11/07/2024 10:02 AM [facility] Monocyte % 11 3 - 11 % 11/07/2024 10:02 AM [facility] Eosinophil % 1 0 - 7 % 11/07/2024 10:02 AM [facility] Metamyelocyte % 1(H) 0% % 10:02 AM [facility] Myelocyte % 1(H) 0% % 11/07/2024 10:02 AM [facility] Neutrophil Absolute 8.96(H) 1.60 - 7.50 x10E9/L 11/07/2024 10:02 AM [facility] Lymphocyte Absolute 0.32(L) 1.00 - 4.40 x10E9/L 11/07/2024 10:02 AM [facility] Monocyte Absolute 1.19(H) 0.15 - 1.00 x10E9/L 11/07/2024 10:02 AM [facility] Eosinophil Absolute 0.11 0.00 - 0.60 x10E9/L 11/07/2024 10:02 AM [facility] RBC Morphology NORMAL 11/07/2024 10:02 AM [facility] Blood BLOOD SPECIMEN / Unknown Lab Venipuncture / Unknown 11/07/2024 8:43 AM CDT 11/07/2024 9:09 AM CDT us Lamberto Singh MD LAB - HEMATOLOGY ORDERABLES Final Result Performing Organization Address [facility]/ZIP Co de Phone Number [address] [address], [facility] [phone] * (ABNORMAL) PHOSPHORUS BLOOD (11/07/2024 8:43 AM CDT) Phosphorus 2.1(L) 2.8 - 5.1 mg/dL 11/07/2024 9:51 AM [facility] Blood BLOOD SPECIMEN / Unknown Lab Venipuncture / Unknown 11/07/2024 8:43 AM CDT 11/07/2024 9:09 AM CDT us Lamberto Singh MD LAB - CHEMISTRY ORDERABLES F inal Result Performing Organization Address [facility] de Phone Number [address] [address], [facility] [phone] * (ABNORMAL) COMPREHENSIVE METABOLIC PANEL (11/07/2024 8:43 AM CDT) BUN 30(H) 7 - 26 mg/dL 11/07/2024 9:58 AM [facility] Creatinine 0.89 0.71 - 1.16 mg/dL 11/07/2024 9:58 AM [facility] Sodium 131(L) 136 - 145 mmol/L 11/07/2024 9:58 AM [facility] Potassium 3.2(L) 3.5 - 4.5 mmol/L 11/07/2024 9:58 AM [facility] Chloride 98 98 - 107 mmol/L 11/07/2024 9:58 AM [facility] CO2 26 22 - 29 mmol/L 11/07/2024 9:58 AM [facility] Glucose 108(H) 70 - 99 mg/dL 11/07/2024 9:58 AM [facility] Calcium 7.3(L) 8.4 - 10.2 mg/dL 11/07/2024 9:58 AM [facility] Protein Total 4.8(L) 6.0 - 8.3 g/dL 11/07/2024 9:58 AM [facility] Albumin 2.1(L) 3.4 - 5.0 g/dL 11/07/2024 9:58 AM [facility] Bilirubin Total 1.5(H) 0.2 - 1.2 mg/dL 11/07/2024 9:58 AM [facility] Alkaline Phosphatase 112 40 - 150 U/L 11/07/2024 9:58 AM [facility] ALT 396(H) 5 - 55 U/L 11/07/2024 9:58 AM [facility] AST 61(H) 5 - 34 U/L 11/07/2024 9:58 AM [facility] Anion Gap 7 6 - 16 11/07/2024 9:58 AM [facility] BUN/Creatinine Ratio 34(H) 7 - 23 11/07/2024 9:58 AM [facility] Osmolality Calculated 279 275 - 295 mOsm/kg 11/07/2024 9:58 AM [facility] Albumin/Globulin Ratio 0.8(L) 1.1 - 2.3 11/07/2024 9:58 AM [facility] eGFR by CKD-EPI 89(L) >=90 mL/min/1.7 3 m2 11/07/2024 9:58 AM [facility] Comment:Estimated Glomerular Filtration Rate (eGFR) calculated using the CKD-EPI Creatinine Equation (2020), per the National Kidney Foundation and [place] [employer]ph[employer] recommendations. Blood BLOOD SPECIMEN / Unknown Lab Venipuncture / Unknown 11/07/2024 8:43 AM CDT 11/07/2024 9:09 AM CDT us Lamberto Singh MD LAB - CHEMISTRY ORDERABLES F inal Result [facility] [address] [place] [address], [facility] [phone] * (ABNORMAL) PT-INR (11/07/2024 8:43 AM CDT) Pathologist [facility] PT 15.3(H) 12.1 - 14.8 Seconds 11/07/2024 9:34 AM CDT [facility] INR 1.2 See Comment 11/07/2024 9:34 AM CDT [facility] Comment:The suggested therap eutic range for standard coumadin (warfarin) therapy is an INR of 2.0-3.0. For high-risk patients (Mechanical Mitral Valve Prosthesis, etc.), the suggested prophylactic therapeutic range is an INR of 2.5-3.5. Blood BLOOD SPECIMEN / Unknown Lab Venipuncture / Unknown 11/07/2024 8:43 AM CDT 11/07/2024 9:05 AM CDT Lamberto Singh MD LAB - COAGULATION ORDERABLES Final Result Performing Organization Address [facility]/ZIP Co de Phone Number [address] [address], [facility] [phone] * MAGNESIUM BLOOD (11/07/2024 8:43 AM CDT) [facility] Magnesium 1.6 1.6 - 2.6 mg/dL 11/07/2024 9:51 AM CDT [facility] Blood BLOOD SPECIMEN / Unknown Lab Venipuncture / Unknown 11/07/2024 8:43 AM CDT 11/07/2024 9:09 AM CDT us Lamberto Singh MD LAB - CHEMISTRY ORDERABLES F inal Result [address] [address], [facility] [phone] * (ABNORMAL) CBC W AUTO DIFFERENTIAL (11/07/2024 8:43 AM CDT) [facility] WBC 10.8(H) 4.0 - 10.7 x10E9/L 11/07/2024 10:02 AM CDT [facility] RBC Count 4.00(L) 4.30 - 5.80 x10E12/L 11/07/2024 10:02 AM [facility] Hemoglobin 11.9(L) 13.3 - 17.5 g/dL 11/07/2024 10:02 AM [facility] Hematocrit 35.0(L) 38.7 - 51.1 % 11/07/2024 10:02 AM [facility] MCV 87.5 80.0 - 98.0 fL 11/07/2024 10:02 AM [facility] MCH 29.8 26.7 - 33.6 pg 11/07/2024 10:02 AM [facility] MCHC 34.0 31.7 - 36.3 g/dL 11/07/2024 10:02 AM [facility] RDW-CV 14.9(H) 11.3 - 14.8 % 11/07/2024 10:02 AM [facility] Platelet Count 91(L) 150 - 420 x10E9/L 11/07/2024 10:02 AM [facility] MPV 10.5 7.8 - 11.4 fL 11/07/2024 10:02 AM [facility] Blood BLOOD SPECIMEN / Unknown Lab Venipuncture / Unknown 11/07/2024 8:43 AM CDT 11/07/2024 9:09 AM CDT us Lamberto Singh MD LAB - HEMATOLOGY ORDERABLES Final Result [facility] [address] [place] [id number], [facility] [phone] * (ABNORMAL) GLUCOSE - POINT OF CARE (11/07/2024 5:52 AM CDT) Pathologist [facility] Glucose WB/POC 118(H) 70 - 99 mg/dL 11/07/2024 5:53 AM [facility] Specimen Type Arterial/C apillary 11/07/2024 5:53 AM [facility] Blood BLOOD SPECIMEN / Unknown 11/07/2024 5:52 AM CDT 11/07/2024 5:53 AM CDT us Deann Stephens MD LAB - POINT OF CARE ORDERABLES Final Result [address] [address], [place] [phone] * (ABNORMAL) GLUCOSE - POINT OF CARE (11/07/2024 1:38 AM CDT) Glucose WB/POC 148(H) 70 - 99 mg/dL 11/07/2024 1:40 AM CDT [facility] Specimen Type Arterial/C apillary 11/07/2024 1:40 AM CDT [facility] Blood BLOOD SPECIMEN / Unknown 11/07/2024 1:38 AM CDT 11/07/2024 1:40 AM CDT us Deann Stephens MD LAB - POINT OF CARE ORDERABLES Final Result Performing Organization Address City/[facility]/ZIP Co de Phone Number [address] [address], [place] [phone] * (ABNORMAL) GLUCOSE - POINT OF CARE (11/06/2024 5:49 PM CDT) Glucose WB/POC 117(H) 70 - 99 mg/dL 11/06/2024 5:51 PM CDT [facility] Specimen Type Arterial/C apillary 11/06/2024 5:51 PM CDT [facility] Blood BLOOD SPECIMEN / Unknown 11/06/2024 5:49 PM CDT 11/06/2024 5:51 PM CDT us Deann Stephens MD LAB - POINT OF CARE ORDERABLES Final Result [address] [address], [place] [phone] * (ABNORMAL) GLUCOSE - POINT OF CARE (11/06/2024 11:40 AM CDT) Glucose WB/POC 125(H) 70 - 99 mg/dL 11/06/2024 11:50 AM CDT [facility] Specimen Type Arterial/C apillary 11/06/2024 11:50 AM CDT [facility] Blood BLOOD SPECIMEN / Unknown 11/06/2024 11:40 AM CDT 11/06/2024 11:50 AM CDT us Deann Stephens MD LAB - POINT OF CARE ORDERABLES Final Result [facility] [address] [place] [address], [facility] [phone] * CCL LEFT AND RIGHT HEART CATH, CCL IFR, CORONARY ANGIOGRAPHY, CCL PERIPHERAL ANGIOGRAM (11/06/2024 9:36 AM CDT) Anatomical Region Laterality Modality X-Ray Angiograph y Narrative 11/06/2024 11:27 AM CDT Multi-vessel coronary artery disease. 60% proximal/mid LAD tubular stenosis, ischemic by iFR 0.72. 50% distal LM stenosis. 1st RPL lesion is 100% stenosed . 100% chronic total occlusion of RPDA and RPLV, distally filled by [id number] collaterals. Moderate LCX stenosis. Low/normal biventricular filling pressures. No pulmonary hypertension. Preserved cardiac output and cardiac index. Right Heart Catheterization Saturations (%) PA: 66% AO: 91% Pressures (mm Hg) RA : 7/2/2 RV : 34/2/5 PA : 34/15 Mean PA : 22 PCWP: 12 Ao : 121/70/90 Cardiac Output: 4.9 L/min Cardiac Index: 2.7 L/min/m2 Pulmonary Vascular Resistance: 4 Wood units Systemic Vascular Resistance: 1436 Dynes/sec/cm5 Cardiac Power Output: 0.95 Kenny Reason for Procedure 74 year old male with PMH of recently diagnosed HFrEF (EF of 25%) who presented from OSH for acute liver injury c/b KASEY and concern for cardiogenic shock. Required inotrope support; now weaned off of inotropes and undergoing aggressive diuresis. R/LHC for CHF evaluation. Procedure Details Estimated Blood Loss: 10 mL Procedure Details and Comments: IL 3.75 guide used Coronary Findings Diagnostic Dominance: Right Left Main: Mid LM to Dist LM lesion is 50% stenosed. ODETTE flow is 3. Left Anterior Descending: The vessel was visualized by selective angiography and is moderate in size. There is mild diffuse disease throughout the vessel. Prox LAD to Mid LAD lesion is 60% stenosed. ODETTE flow is 3. iFR: 0.72. Left Circumflex: The vessel was visualized by selective angiography and is small to moderate in size. There is moderate diffuse disease throughout the vessel. Right Coronary Artery: There is severe diffuse disease throughout the vessel. Prox RCA-1 lesion is 80% stenosed. ODETTE flow is 3. Prox RCA-2 lesion is 80% stenosed. ODETTE flow is 3. Mid RCA lesion is 40% stenosed. ODETTE flow is 3. Acute Marginal Branch: The vessel is small in size. Right Ventricular Branch: The vessel is small in size. Right Posterior Descending Artery: RPDA filled by collaterals from Dist LAD. RPDA lesion is 100% stenosed. ODETTE flow is 0. Right Posterior Atrioventricular Artery: There is moderate diffuse disease throughout the vessel. First Right Posterolateral Branch: 1st RPL filled by collaterals from Dist LAD. 1st RPL lesion is 100% stenosed. ODETTE flow is 0. The lesion is chronically occluded. Intervention No interventions have been documented. Non Coronary Arteries Findings Diagnostic Right Common Femoral: The catheter tip was placed in the right TIPPLE BOSS artery. The vessel was visualized by selective angiography and is moderately sized. The vessel exhibits minimal luminal irregularities. Intervention No interventions have been documented. Right Heart Cath There is no pulmonary hypertension. Common Conclusions NYHA Classification: class III. There is severe multi-vessel disease. Mild pulmonary hypertension . normal PCWP. Normal cardiac output. Normal right atrial pressure. Abnormal iFR of the Prox LAD. Recommendations - Follow maximal guideline directed medical therapy for stable coronary artery disease and ischemic cardiomyopathy. - Recommend high dose statin therapy and aspirin 81 mg by mouth daily indefinitely. - Consult cardiothoracic surgeon for coronary bypass grafting. 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 = [...] From established ranges from the company manual us Deann Stephens MD LAB - COAGULATION O RDERABLES Final Result Performing Organization Address City/State/[facility] Co de Phone Number [address] [address], [facility] [phone] * ACT LR - POCT ([facility]) (11/06/2024 8:54 AM CDT) ACT LR 237 See result comments sec 11/07/2024 6:26 AM CDT [facility] Blood BLOOD SPECIMEN / Unknown 11/06/2024 8:54 AM CDT 11/07/2024 6:26 AM CDT [facility] - 11/07/2024 6:26 AM CDT [employer] 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 = [...] From established ranges from the company manual us Deann Stephens MD LAB - COAGULATION O RDERABLES Final Result Performing Organization Address City/[facility]/ZIP Co de Phone Number [address] [address], [facility] [phone] * (ABNORMAL) GLUCOSE - POINT OF CARE (11/06/2024 6:22 AM CDT) Glucose WB/POC 131(H) 70 - 99 mg/dL 11/06/2024 6:25 AM CDT [facility] Specimen Type Arterial/C apillary 11/06/2024 6:25 AM CDT [facility] Blood BLOOD SPECIMEN / Unknown 11/06/2024 6:22 AM CDT 11/06/2024 6:25 AM CDT Deann Stephens MD LAB - POINT OF CARE ORDERABLES Final Result Performing Organization Address [facility] [place]/[facility] Co de Phone Number [address] [address], [facility] [phone] * (ABNORMAL) DIFFERENTIAL MANUAL (11/06/2024 3:41 AM CDT) Pathologist [facility] Neutrophil % 87(H) 41 - 74 % 11/06/2024 5:43 AM [facility] Lymphocyte % 5(L) 17 - 47 % 11/06/2024 5:43 AM [facility] Monocyte % 6 3 - 11 % 11/06/2024 5:43 AM [facility] Eosinophil % 1 0 - 7 % 11/06/2024 5:43 AM [facility] Basophil % 1 0 - 2 % 11/06/2024 5:43 AM [facility] Neutrophil Absolute 10.53(H) 1.60 - 7.50 x10E9/L 11/06/2024 5:43 AM [facility] Lymphocyte Absolute 0.61(L) 1.00 - 4.40 x10E9/L 11/06/2024 5:43 AM [facility] Monocyte Absolute 0.73 0.15 - 1.00 x10E9/L 11/06/2024 5:43 AM [facility] Eosinophil Absolute 0.12 0.00 - 0.60 x10E9/L 11/06/2024 5:43 AM CDT [facility] Basophil Absolute 0.12 0.00 - 0.13 x10E9/L 11/06/2024 5:43 AM [facility] RBC Morphology REVIEWED 11/06/2024 5:43 AM T [facility] Mineral Cells MODERATE(A) (none) 11/06/2024 5:43 AM T [facility] Blood BLOOD SPECIMEN / Unknown Lab Venipuncture / Unknown 11/06/2024 3:41 AM CDT 11/06/2024 4:44 AM CDT us Lamberto Singh MD LAB - HEMATOLOGY ORDERABLES Final Result Performing Organization Address [facility]/ZIP Co de Phone Number [address] [address], [facility] [phone] * (ABNORMAL) PHOSPHORUS BLOOD (11/06/2024 3:41 AM CDT) Phosphorus 2.3(L) 2.8 - 5.1 mg/dL 11/06/2024 5:05 AM T [facility] Blood BLOOD SPECIMEN / Unknown Lab Venipuncture / Unknown 11/06/2024 3:41 AM CDT 11/06/2024 4:37 AM CDT us Lamberto Singh MD LAB - CHEMISTRY ORDERABLES F inal Result [address] [address], [place] [phone] * (ABNORMAL) COMPREHENSIVE METABOLIC PANEL (11/06/2024 3:41 AM CDT) BUN 52(H) 7 - 26 mg/dL 11/06/2024 5:05 AM T [facility] Creatinine 1.16 0.71 - 1.16 mg/dL 11/06/2024 5:05 AM T [facility] Sodium 138 136 - 145 mmol/L 11/06/2024 5:05 AM [facility] Potassium 3.5 3.5 - 4.5 mmol/L 11/06/2024 5:05 AM [facility] Chloride 100 98 - 107 mmol/L 11/06/2024 5:05 AM [facility] CO2 29 22 - 29 mmol/L 11/06/2024 5:05 AM [facility] Glucose 127(H) 70 - 99 mg/dL 11/06/2024 5:05 AM [facility] Calcium 7.7(L) 8.4 - 10.2 mg/dL 11/06/2024 5:05 AM [facility] Protein Total 5.3(L) 6.0 - 8.3 g/dL 11/06/2024 5:05 AM [facility] Albumin 2.6(L) 3.4 - 5.0 g/dL 11/06/2024 5:05 AM [facility] Bilirubin Total 2.3(H) 0.2 - 1.2 mg/dL 11/06/2024 5:05 AM [facility] Alkaline Phosphatase 121 40 - 150 U/L 11/06/2024 5:05 AM [facility] ALT 722(H) 5 - 55 U/L 11/06/2024 5:05 AM [facility] AST 109(H) 5 - 34 U/L 11/06/2024 5:05 AM [facility] Anion Gap 9 6 - 16 11/06/2024 5:05 AM [facility] BUN/Creatinine Ratio 45(H) 7 - 23 11/06/2024 5:05 AM [facility] Osmolality Calculated 302(H) 275 - 295 mOsm/kg 11/06/2024 5:05 AM [facility] Albumin/Globulin Ratio 1.0(L) 1.1 - 2.3 11/06/2024 5:05 AM [facility] eGFR by CKD-EPI 65(L) >=90 mL/min/1.7 3 m2 11/06/2024 5:05 AM [facility] Comment:Estimated Glomerular Filtration Rate (eGFR) calculated using the CKD-EPI Creatinine Equation (2020), per the National Kidney Foundation and [place] [employer] Neph[employer] recommendations. Blood BLOOD SPECIMEN / Unknown Lab Venipuncture / Unknown 11/06/2024 3:41 AM CDT 11/06/2024 4:37 AM CDT us Lamberto Singh MD LAB - CHEMISTRY ORDERABLES F inal Result Performing Organization Address [facility] Co de Phone Number [address] [address], [facility] [phone] * (ABNORMAL) PT-INR (11/06/2024 3:41 AM CDT) PT 15.8(H) 12.1 - 14.8 Seconds 11/06/2024 5:11 AM CDT [facility] INR 1.3 See Comment 11/06/2024 5:11 AM CDT [facility] Comment:The suggested therap eutic range for standard coumadin (warfarin) therapy is an INR of 2.0-3.0. For high-risk patients (Mechanical Mitral Valve Prosthesis, etc.), the suggested prophylactic therapeutic range is an INR of 2.5-3.5. Blood BLOOD SPECIMEN / Unknown Lab Venipuncture / Unknown 11/06/2024 3:41 AM CDT 11/06/2024 4:44 AM CDT us Lamberto Singh MD LAB - COAGULATION ORDERABLES Final Result Performing Organization Address [facility] [place]/[facility] Co de Phone Number [address] [address], [facility] [phone] * MAGNESIUM BLOOD (11/06/2024 3:41 AM CDT) Magnesium 1.6 1.6 - 2.6 mg/dL 11/06/2024 5:05 AM CDT [facility] Blood BLOOD SPECIMEN / Unknown Lab Venipuncture / Unknown 11/06/2024 3:41 AM CDT 11/06/2024 4:37 AM CDT us Lamberto Singh MD LAB - CHEMISTRY ORDERABLES F inal Result [address] [address], [facility] [phone] * (ABNORMAL) CBC W AUTO DIFFERENTIAL (11/06/2024 3:41 AM CDT) WBC 12.1(H) 4.0 - 10.7 x10E9/L 11/06/2024 5:44 AM T [facility] RBC Count 4.01(L) 4.30 - 5.80 x10E12/L 11/06/2024 5:44 AM [facility] Hemoglobin 11.7(L) 13.3 - 17.5 g/dL 11/06/2024 5:44 AM [facility] Hematocrit 34.3(L) 38.7 - 51.1 % 11/06/2024 5:44 AM [facility] MCV 85.5 80.0 - 98.0 fL 11/06/2024 5:44 AM T [facility] MCH 29.2 26.7 - 33.6 pg 11/06/2024 5:44 AM [facility] MCHC 34.1 31.7 - 36.3 g/dL 11/06/2024 5:44 AM [facility] RDW-CV 14.9(H) 11.3 - 14.8 % 11/06/2024 5:44 AM [facility] Platelet Count 91(L) 150 - 420 x10E9/L 11/06/2024 5:44 AM [facility] MPV 11.2 7.8 - 11.4 fL 11/06/2024 5:44 AM [facility] Blood BLOOD SPECIMEN / Unknown Lab Venipuncture / Unknown 11/06/2024 3:41 AM CDT 11/06/2024 4:44 AM CDT us Lamberto Singh MD LAB - HEMATOLOGY ORDERABLES Final Result [address] [address], [facility] [phone] * (ABNORMAL) GLUCOSE - POINT OF CARE (11/05/2024 11:46 PM CDT) Pathologist [facility] Glucose WB/POC 145(H) 70 - 99 mg/dL 11/06/2024 12:09 AM [facility] Specimen Type Arterial/C apillary 11/06/2024 12:09 AM [facility] Blood BLOOD SPECIMEN / Unknown 11/05/2024 11:46 PM CDT 11/06/2024 12:09 AM CDT Deann Stephens MD LAB - POINT OF CARE ORDERABLES Final Result [address] [address], [facility] [phone] * (ABNORMAL) RENAL FUNCTION PANEL (11/05/2024 11:30 PM CDT) Pathologist [facility] BUN 53(H) 7 - 26 mg/dL 11/06/2024 12:30 AM [facility] Creatinine 1.17(H) 0.71 - 1.16 mg/dL 11/06/2024 12:30 AM [facility] Sodium 137 136 - 145 mmol/L 11/06/2024 12:30 AM [facility] Potassium 4.0 3.5 - 4.5 mmol/L 11/06/2024 12:30 AM [facility] Chloride 100 98 - 107 mmol/L 11/06/2024 12:30 AM [facility] CO2 29 22 - 29 mmol/L 11/06/2024 12:30 AM [facility] Glucose 147(H) 70 - 99 mg/dL 11/06/2024 12:30 AM [facility] Albumin 2.6(L) 3.4 - 5.0 g/dL 11/06/2024 12:30 AM [facility] Calcium 7.6(L) 8.4 - 10.2 mg/dL 11/06/2024 12:30 AM [facility] Phosphorus 2.4(L) 2.8 - 5.1 mg/dL 11/06/2024 12:30 AM [facility] Anion Gap 8 6 - 16 11/06/2024 12:30 AM [facility] BUN/Creatinine Ratio 45(H) 7 - 23 11/06/2024 12:30 AM [facility] Osmolality Calculated 301(H) 275 - 295 mOsm/kg 11/06/2024 12:30 AM [facility] eGFR by CKD-EPI 65(L) >=90 mL/min/1.7 3 m2 11/06/2024 12:30 AM [facility] Comment:Estimated Glomerular Filtration Rate (eGFR) calculated using the CKD-EPI Creatinine Equation (2020), per the National Kidney Foundation and [place] [employer] Neph[employer] recommendations. Blood BLOOD SPECIMEN / Unknown Lab Venipuncture / Unknown 11/05/2024 11:30 PM CDT 11/06/2024 12:06 AM CDT us Deann Stephens MD LAB - CHEMISTRY ORD ERABLES Final Result [address] [address], [place] [phone] * (ABNORMAL) GLUCOSE - POINT OF CARE (11/05/2024 6:25 PM CDT) Glucose WB/POC 121(H) 70 - 99 mg/dL 11/05/2024 6:30 PM T [facility] Specimen Type Arterial/C apillary 11/05/2024 6:30 PM T [facility] Blood BLOOD SPECIMEN / Unknown 11/05/2024 6:25 PM CDT 11/05/2024 6:30 PM CDT us Deann Stephens MD LAB - POINT OF CARE ORDERABLES Final Result [address] [address], [place] [phone] * (ABNORMAL) GLUCOSE - POINT OF CARE (11/05/2024 12:05 PM CDT) Glucose WB/POC 187(H) 70 - 99 mg/dL 11/05/2024 12:10 PM CDT [facility] Specimen Type Arterial/C apillary 11/05/2024 12:10 PM CDT [facility] Blood BLOOD SPECIMEN / Unknown 11/05/2024 12:05 PM CDT 11/05/2024 12:10 PM CDT us Deann Stephnes MD LAB - POINT OF CARE ORDERABLES Final Result [address] [address], [place] [phone] * (ABNORMAL) GLUCOSE - POINT OF CARE (11/05/2024 6:24 AM CDT) Glucose WB/POC 124(H) 70 - 99 mg/dL 11/05/2024 6:26 AM CDT [facility] Specimen Type Arterial/C apillary 11/05/2024 6:26 AM CDT [facility] Blood BLOOD SPECIMEN / Unknown 11/05/2024 6:24 AM CDT 11/05/2024 6:26 AM CDT us Lamberto Singh MD LAB - POINT OF CARE ORDERABL ES Final Result [address] [address], [place] [phone] * PHOSPHORUS BLOOD (11/05/2024 3:07 AM CDT) Phosphorus 2.8 2.8 - 5.1 mg/dL 11/05/2024 4:00 AM CDT [facility] Blood BLOOD SPECIMEN / Unknown Lab Venipuncture / Unknown 11/05/2024 3:07 AM CDT 11/05/2024 3:35 AM CDT us Lamberto Singh MD LAB - CHEMISTRY ORDERABLES F inal Result [facility] [address] [place] [address], [facility] [phone] * (ABNORMAL) COMPREHENSIVE METABOLIC PANEL (11/05/2024 3:07 AM CDT) BUN 70(H) 7 - 26 mg/dL 11/05/2024 4:00 AM [facility] Creatinine 1.46(H) 0.71 - 1.16 mg/dL 11/05/2024 4:00 AM [facility] Sodium 138 136 - 145 mmol/L 11/05/2024 4:00 AM [facility] Potassium 2.7(L) 3.5 - 4.5 mmol/L 11/05/2024 4:00 AM [facility] Chloride 99 98 - 107 mmol/L 11/05/2024 4:00 AM [facility] CO2 29 22 - 29 mmol/L 11/05/2024 4:00 AM [facility] Glucose 122(H) 70 - 99 mg/dL 11/05/2024 4:00 AM [facility] Calcium 7.5(L) 8.4 - 10.2 mg/dL 11/05/2024 4:00 AM [facility] Protein Total 5.0(L) 6.0 - 8.3 g/dL 11/05/2024 4:00 AM [facility] Albumin 2.6(L) 3.4 - 5.0 g/dL 11/05/2024 4:00 AM [facility] Bilirubin Total 2.5(H) 0.2 - 1.2 mg/dL 11/05/2024 4:00 AM [facility] Alkaline Phosphatase 119 40 - 150 U/L 11/05/2024 4:00 AM [facility] ALT 1,070(H) 5 - 55 U/L 11/05/2024 4:00 AM [facility] AST 171(H) 5 - 34 U/L 11/05/2024 4:00 AM [facility] Anion Gap 10 6 - 16 11/05/2024 4:00 AM [facility] BUN/Creatinine Ratio 48(H) 7 - 23 11/05/2024 4:00 AM [facility] Osmolality Calculated 308(H) 275 - 295 mOsm/kg 11/05/2024 4:00 AM [facility] Albumin/Globulin Ratio 1.1 1.1 - 2.3 11/05/2024 4:00 AM [facility] eGFR by CKD-EPI 50(L) >=90 mL/min/1. 73 m2 11/05/2024 4:00 AM [facility] Comment:Estimated Glomerular Filtration Rate (eGFR) calculated using the CKD-EPI Creatinine Equation (2020), per the National Kidney Foundation and [place] [employer] Nephrology recommendations. Blood BLOOD SPECIMEN / Unknown Lab Venipuncture / Unknown 11/05/2024 3:07 AM CDT 11/05/2024 3:35 AM CDT us Lamberto Singh MD LAB - CHEMISTRY ORDERABLES F inal Result [address] [address] [phone] * (ABNORMAL) PT-INR (11/05/2024 3:07 AM CDT) PT 17.7(H) 12.1 - 14.8 Seconds 11/05/2024 3:54 AM [facility] INR 1.5 See Comment 11/05/2024 3:54 AM [facility] Comment:The suggested therap eutic range for standard coumadin (warfarin) therapy is an INR of 2.0-3.0. For high-risk patients (Mechanical Mitral Valve Prosthesis, etc.), the suggested prophylactic therapeutic range is an INR of 2.5-3.5. Blood BLOOD SPECIMEN / Unknown Lab Venipuncture / Unknown 11/05/2024 3:07 AM CDT 11/05/2024 3:35 AM CDT us Lamberto Singh MD LAB - COAGULATION ORDERABLES Final Result Performing Organization Address City/[facility]/ZIP Co de Phone Number [address] [address], [facility] [phone] * MAGNESIUM BLOOD (11/05/2024 3:07 AM CDT) Pathologist [facility] Magnesium 1.6 1.6 - 2.6 mg/dL 11/05/2024 4:00 AM T [facility] Blood BLOOD SPECIMEN / Unknown Lab Venipuncture / Unknown 11/05/2024 3:07 AM CDT 11/05/2024 3:35 AM CDT us Lamberto Singh MD LAB - CHEMISTRY ORDERABLES F inal Result Performing Organization Address [facility]/ZIP Co de Phone Number [address] [address], [facility] [phone] * (ABNORMAL) CBC W AUTO DIFFERENTIAL (11/05/2024 3:07 AM CDT) Pathologist [facility] WBC 10.5 4.0 - 10.7 x10E9/L 11/05/2024 3:42 AM [facility] RBC Count 3.87(L) 4.30 - 5.80 x10E12/L 11/05/2024 3:42 AM [facility] Hemoglobin 11.3(L) 13.3 - 17.5 g/dL 11/05/2024 3:42 AM [facility] Hematocrit 32.2(L) 38.7 - 51.1 % 11/05/2024 3:42 AM [facility] MCV 83.2 80.0 - 98.0 fL 11/05/2024 3:42 AM T [facility] MCH 29.2 26.7 - 33.6 pg 11/05/2024 3:42 AM T [facility] MCHC 35.1 31.7 - 36.3 g/dL 11/05/2024 3:42 AM [facility] RDW-CV 14.5 11.3 - 14.8 % 11/05/2024 3:42 AM [facility] Platelet Count 106(L) 150 - 420 x10E9/L 11/05/2024 3:42 AM [facility] MPV 10.7 7.8 - 11.4 fL 11/05/2024 3:42 AM [facility] Neutrophil % 76.0(H) 41.0 - 74.0 % 11/05/2024 3:42 AM [facility] Lymphocyte % 10.0(L) 17.0 - 47.0 % 11/05/2024 3:42 AM [facility] Monocyte % 12.8(H) 3.0 - 11.0 % 11/05/2024 3:42 AM [facility] Eosinophil % 0.2 0.0 - 7.0 % 11/05/2024 3:42 AM [facility] Basophil % 0.2 0.0 - 1.6 % 11/05/2024 3:42 AM [facility] Immature Granulocytes % 0.8 0.0 - 1.0 % 11/05/2024 3:42 AM [facility] Neutrophil Absolute 8.02(H) 1.60 - 7.50 x10E9/L 11/05/2024 3:42 AM [facility] Lymphocyte Absolute 1.05 1.00 - 4.40 x10E9/L 11/05/2024 3:42 AM [facility] Monocyte Absolute 1.35(H) 0.15 - 1.00 x10E9/L 11/05/2024 3:42 AM [facility] Eosinophil Absolute 0.02 0.00 - 0.60 x10E9/L 11/05/2024 3:42 AM [facility] Basophil Absolute 0.02 0.00 - 0.13 x10E9/L 11/05/2024 3:42 AM [facility] Blood BLOOD SPECIMEN / Unknown Lab Venipuncture / Unknown 11/05/2024 3:07 AM CDT 11/05/2024 3:35 AM T us Lamberto Singh MD LAB - HEMATOLOGY ORDERABLES Final Result Performing Organization Address [facility]/ZIP Co de Phone Number [address] [address], [place] [phone] * (ABNORMAL) GLUCOSE - POINT OF CARE (11/05/2024 12:05 AM CDT) Glucose WB/POC 134(H) 70 - 99 mg/dL 11/05/2024 12:10 AM CDT [facility] Specimen Type Arterial/C apillary 11/05/2024 12:10 AM CDT [facility] Blood BLOOD SPECIMEN / Unknown 11/05/2024 12:05 AM CDT 11/05/2024 12:10 AM CDT Lamberto Singh MD LAB - POINT OF CARE ORDERABL ES Final Result Performing Organization Address [facility] Co de Phone Number [address] [address], [facility] [phone] * CALCIUM URINE RANDOM (11/04/2024 4:26 PM CDT) Calcium Random Urine 8.2 Not Established mg/dL 11/04/2024 5:00 PM CDT [facility] Urine URINE SPECIMEN OBTAINED BY CLEAN CATCH PROCEDURE / Unknown Collection / Unknown 11/04/2024 4:26 PM CDT 11/04/2024 4:34 PM CDT us Lamberto Singh MD LAB - URINE CHEMISTRY ORDERA BLES Final Result Performing Organization Address City/[facility]/ZIP Co de Phone Number [address] [address], [place] [phone] * (ABNORMAL) GLUCOSE - POINT OF CARE (11/04/2024 1:05 PM CDT) Glucose WB/POC 213(H) 70 - 99 mg/dL 11/04/2024 1:06 PM CDT [facility] Specimen Type Arterial/C apillary 11/04/2024 1:06 PM CDT [facility] Blood BLOOD SPECIMEN / Unknown 11/04/2024 1:05 PM CDT 11/04/2024 1:05 PM CDT Lamberto Singh MD LAB - POINT OF CARE ORDERABL ES Final Result Performing Organization Address [facility] [place]/[facility]/ZIP Co de Phone Number [address] [address], [facility] [phone] * HIV-1 HIV-2 ANTIBODY + HIV P24 AG PANEL (11/04/2024 1:03 PM CDT) HIV Antigen/Antibod y 1 & 2 Non-reacti ve Non-react palma 11/05/2024 11:10 AM CDT [facility] Comment:No Laboratory eviden ce of HIV infection. Blood BLOOD SPECIMEN / Unknown Venipuncture / Unknown 11/04/2024 1:03 PM CDT 11/04/2024 1:15 PM CDT Lamberto Singh MD LAB - CHEMISTRY ORDERABLES F inal Result Performing Organization Address [facility] [place]/[facility]/ZIP Co de Phone Number [address] [address], [facility] [phone] * (ABNORMAL) IRON + TRANSFERRIN PANEL (11/04/2024 1:03 PM CDT) Iron 27(L) 50 - 175 ug/dL 11/04/2024 2:08 PM CDT [facility] Transferrin 173(L) 174 - 382 mg/dL 11/04/2024 2:08 PM CDT [facility] Transferrin Saturation % 12(L) 16 - 50 % 11/04/2024 2:08 PM CDT [facility] TIBC Calculated 216(L) 240 - 450 ug/dL 11/04/2024 2:08 PM CDT [facility] Blood BLOOD SPECIMEN / Unknown Venipuncture / Unknown 11/04/2024 1:03 PM CDT 11/04/2024 1:15 PM CDT Lamberto Singh MD LAB - CHEMISTRY ORDERABLES F inal Result [facility] [address] [place] [phone], [facility] [phone] * (ABNORMAL) BASIC METABOLIC PANEL (CALCIUM TOTAL) (11/04/2024 1:03 PM CDT) BUN 71(H) 7 - 26 mg/dL 11/04/2024 2:13 PM [facility] Creatinine 1.55(H) 0.71 - 1.16 mg/dL 11/04/2024 2:13 PM [facility] Sodium 140 136 - 145 mmol/L 11/04/2024 2:13 PM [facility] Potassium 3.6 3.5 - 4.5 mmol/L 11/04/2024 2:13 PM [facility] Chloride 99 98 - 107 mmol/L 11/04/2024 2:13 PM [facility] CO2 26 22 - 29 mmol/L 11/04/2024 2:13 PM [facility] Glucose 200(H) 70 - 99 mg/dL 11/04/2024 2:13 PM [facility] Calcium 7.4(L) 8.4 - 10.2 mg/dL 11/04/2024 2:13 PM [facility] Anion Gap 15 6 - 16 11/04/2024 2:13 PM [facility] BUN/Creatinine Ratio 46(H) 7 - 23 11/04/2024 2:13 PM [facility] Osmolality Calculated 316(H) 275 - 295 mOsm/kg 11/04/2024 2:13 PM [facility] eGFR by CKD-EPI 46(L) >=90 mL/min/1.7 3 m2 11/04/2024 2:13 PM [facility] Comment:Estimated Glomerular Filtration Rate (eGFR) calculated using the CKD-EPI Creatinine Equation (2020), per the National Kidney Foundation and [place] Society of Nephrology recommendations. Blood BLOOD SPECIMEN / Unknown Venipuncture / Unknown 11/04/2024 1:03 PM CDT 11/04/2024 1:43 PM CDT us Lamberto Singh MD LAB - CHEMISTRY ORDERABLES F inal Result [facility] [address] [place] [phone], [facility] [phone] * (ABNORMAL) RENAL FUNCTION PANEL (11/04/2024 6:12 AM CDT) BUN 74(H) 7 - 26 mg/dL 11/04/2024 7:42 AM [facility] Creatinine 1.57(H) 0.71 - 1.16 mg/dL 11/04/2024 7:42 AM [facility] Sodium 139 136 - 145 mmol/L 11/04/2024 7:42 AM [facility] Potassium 2.7(L) 3.5 - 4.5 mmol/L 11/04/2024 7:42 AM [facility] Chloride 100 98 - 107 mmol/L 11/04/2024 7:42 AM [facility] CO2 25 22 - 29 mmol/L 11/04/2024 7:42 AM [facility] Glucose 131(H) 70 - 99 mg/dL 11/04/2024 7:42 AM [facility] Albumin 2.6(L) 3.4 - 5.0 g/dL 11/04/2024 7:42 AM [facility] Calcium 7.3(L) 8.4 - 10.2 mg/dL 11/04/2024 7:42 AM [facility] Phosphorus 2.4(L) 2.8 - 5.1 mg/dL 11/04/2024 7:42 AM [facility] Anion Gap 14 6 - 16 11/04/2024 7:42 AM [facility] BUN/Creatinine Ratio 47(H) 7 - 23 11/04/2024 7:42 AM [facility] Osmolality Calculated 312(H) 275 - 295 mOsm/kg 11/04/2024 7:42 AM [facility] eGFR by CKD-EPI 45(L) >=90 mL/min/1.7 3 m2 11/04/2024 7:42 AM [facility] Comment:Estimated Glomerular Filtration Rate (eGFR) calculated using the CKD-EPI Creatinine Equation (2020), per the National Kidney Foundation and [place] Society of Nephrology recommendations. Blood BLOOD SPECIMEN / Unknown Venipuncture / Unknown 11/04/2024 6:12 AM CDT 11/04/2024 6:20 AM CDT us Ac Jose DO LAB - CHEMISTRY ORDERABLES Final Result [facility] [address] [place] [address], [facility] [phone] * (ABNORMAL) COMPREHENSIVE METABOLIC PANEL (11/04/2024 6:12 AM CDT) BUN 74(H) 7 - 26 mg/dL 11/04/2024 7:42 AM [facility] Creatinine 1.57(H) 0.71 - 1.16 mg/dL 11/04/2024 7:42 AM [facility] Sodium 139 136 - 145 mmol/L 11/04/2024 7:42 AM [facility] Potassium 2.7(L) 3.5 - 4.5 mmol/L 11/04/2024 7:42 AM [facility] Chloride 100 98 - 107 mmol/L 11/04/2024 7:42 AM [facility] CO2 25 22 - 29 mmol/L 11/04/2024 7:42 AM [facility] Glucose 131(H) 70 - 99 mg/dL 11/04/2024 7:42 AM [facility] Calcium 7.3(L) 8.4 - 10.2 mg/dL 11/04/2024 7:42 AM [facility] Protein Total 5.4(L) 6.0 - 8.3 g/dL 11/04/2024 7:42 AM [facility] Albumin 2.6(L) 3.4 - 5.0 g/dL 11/04/2024 7:42 AM [facility] Bilirubin Total 2.7(H) 0.2 - 1.2 mg/dL 11/04/2024 7:42 AM [facility] Alkaline Phosphatase 118 40 - 150 U/L 11/04/2024 7:42 AM [facility] ALT 1,580(H) 5 - 55 U/L 11/04/2024 7:42 AM [facility] AST 301(H) 5 - 34 U/L 11/04/2024 7:42 AM [facility] Anion Gap 14 6 - 16 11/04/2024 7:42 AM [facility] BUN/Creatinine Ratio 47(H) 7 - 23 11/04/2024 7:42 AM [facility] Osmolality Calculated 312(H) 275 - 295 mOsm/kg 11/04/2024 7:42 AM [facility] Albumin/Globulin Ratio 0.9(L) 1.1 - 2.3 11/04/2024 7:42 AM [facility] eGFR by CKD-EPI 45(L) >=90 mL/min/1. 73 m2 11/04/2024 7:42 AM [facility] Comment:Estimated Glomerular Filtration Rate (eGFR) calculated using the CKD-EPI Creatinine Equation (2020), per the National Kidney Foundation and [place] Society of Nephrology recommendations. Blood BLOOD SPECIMEN / Unknown Venipuncture / Unknown 11/04/2024 6:12 AM CDT 11/04/2024 6:20 AM CDT Lamberto Singh MD LAB - CHEMISTRY ORDERABLES F inal Result [facility] [address] [place] [phone] [phone] * (ABNORMAL) PT-INR (11/04/2024 6:12 AM CDT) PT 18.2(H) 12.1 - 14.8 Seconds 11/04/2024 6:46 AM [facility] INR 1.6 See Comment 11/04/2024 6:46 AM [facility] Comment:The suggested therap eutic range for standard coumadin (warfarin) therapy is an INR of 2.0-3.0. For high-risk patients (Mechanical Mitral Valve Prosthesis, etc.), the suggested prophylactic therapeutic range is an INR of 2.5-3.5. Blood BLOOD SPECIMEN / Unknown Venipuncture / Unknown 11/04/2024 6:12 AM CDT 11/04/2024 6:20 AM CDT Lamberto Singh MD LAB - COAGULATION ORDERABLES Final Result Performing Organization Address [facility]/[facility] Co de Phone Number [address] [address], [facility] [phone] * MAGNESIUM BLOOD (11/04/2024 6:12 AM CDT) Pathologist [facility] Magnesium 1.8 1.6 - 2.6 mg/dL 11/04/2024 6:50 AM T [facility] Blood BLOOD SPECIMEN / Unknown Venipuncture / Unknown 11/04/2024 6:12 AM CDT 11/04/2024 6:20 AM CDT us Lamberto Singh MD LAB - CHEMISTRY ORDERABLES F inal Result Performing Organization Address [facility] de Phone Number [address] [address], [facility] [phone] * (ABNORMAL) CBC W AUTO DIFFERENTIAL (11/04/2024 6:12 AM CDT) WBC 9.4 4.0 - 10.7 x10E9/L 11/04/2024 6:49 AM [facility] RBC Count 4.28(L) 4.30 - 5.80 x10E12/L 11/04/2024 6:49 AM [facility] Hemoglobin 12.7(L) 13.3 - 17.5 g/dL 11/04/2024 6:49 AM [facility] Hematocrit 35.4(L) 38.7 - 51.1 % 11/04/2024 6:49 AM [facility] MCV 82.7 80.0 - 98.0 fL 11/04/2024 6:49 AM [facility] MCH 29.7 26.7 - 33.6 pg 11/04/2024 6:49 AM [facility] MCHC 35.9 31.7 - 36.3 g/dL 11/04/2024 6:49 AM [facility] RDW-CV 14.1 11.3 - 14.8 % 11/04/2024 6:49 AM [facility] Platelet Count 110(L) 150 - 420 x10E9/L 11/04/2024 6:49 AM [facility] MPV 10.6 7.8 - 11.4 fL 11/04/2024 6:49 AM [facility] Neutrophil % 81.7(H) 41.0 - 74.0 % 11/04/2024 6:49 AM [facility] Lymphocyte % 6.9(L) 17.0 - 47.0 % 11/04/2024 6:49 AM [facility] Monocyte % 10.5 3.0 - 11.0 % 11/04/2024 6:49 AM [facility] Eosinophil % 0.1 0.0 - 7.0 % 11/04/2024 6:49 AM [facility] Basophil % 0.2 0.0 - 1.6 % 11/04/2024 6:49 AM [facility] Immature Granulocytes % 0.6 0.0 - 1.0 % 11/04/2024 6:49 AM [facility] Neutrophil Absolute 7.69(H) 1.60 - 7.50 x10E9/L 11/04/2024 6:49 AM [facility] Lymphocyte Absolute 0.65(L) 1.00 - 4.40 x10E9/L 11/04/2024 6:49 AM [facility] Monocyte Absolute 0.99 0.15 - 1.00 x10E9/L 11/04/2024 6:49 AM [facility] Eosinophil Absolute 0.01 0.00 - 0.60 x10E9/L 11/04/2024 6:49 AM [facility] Basophil Absolute 0.02 0.00 - 0.13 x10E9/L 11/04/2024 6:49 AM CDT [facility] Blood BLOOD SPECIMEN / Unknown Venipuncture / Unknown 11/04/2024 6:12 AM CDT 11/04/2024 6:20 AM CDT us Lamberto Singh MD LAB - HEMATOLOGY ORDERABLES Final Result Performing Organization Address City/[facility]/ZIP Co de Phone Number [address] [address], [facility] [phone] * (ABNORMAL) GLUCOSE - POINT OF CARE (11/04/2024 5:35 AM CDT) Glucose WB/POC 140(H) 70 - 99 mg/dL 11/04/2024 5:46 AM T [facility] Specimen Type Arterial/C apillary 11/04/2024 5:46 AM CDT [facility] Blood BLOOD SPECIMEN / Unknown 11/04/2024 5:35 AM CDT 11/04/2024 5:46 AM CDT us Lamberto Singh MD LAB - POINT OF CARE ORDERABL ES Final Result Performing Organization Address [facility]/[facility]/ZIP Co de Phone Number [address] [address], [facility] [phone] * (ABNORMAL) RENAL FUNCTION PANEL (11/04/2024 12:31 AM CDT) BUN 74(H) 7 - 26 mg/dL 11/04/2024 1:29 AM [facility] Creatinine 0.91 0.71 - 1.16 mg/dL 11/04/2024 1:29 AM [facility] Sodium 135(L) 136 - 145 mmol/L 11/04/2024 1:29 AM [facility] Potassium 2.7(L) 3.5 - 4.5 mmol/L 11/04/2024 1:29 AM [facility] Chloride 98 98 - 107 mmol/L 11/04/2024 1:29 AM [facility] CO2 24 22 - 29 mmol/L 11/04/2024 1:29 AM [facility] Glucose 207(H) 70 - 99 mg/dL 11/04/2024 1:29 AM [facility] Albumin 2.7(L) 3.4 - 5.0 g/dL 11/04/2024 1:29 AM [facility] Calcium 6.9(L) 8.4 - 10.2 mg/dL 11/04/2024 1:29 AM [facility] Phosphorus 2.1(L) 2.8 - 5.1 mg/dL 11/04/2024 1:29 AM [facility] Anion Gap 13 6 - 16 11/04/2024 1:29 AM [facility] BUN/Creatinine Ratio >50(H) 7 - 23 11/04/2024 1:29 AM [facility] Osmolality Calculated 308(H) 275 - 295 mOsm/kg 11/04/2024 1:29 AM [facility] eGFR by CKD-EPI 87(L) >=90 mL/min/1.7 3 m2 11/04/2024 1:29 AM [facility] Comment:Estimated Glomerular Filtration Rate (eGFR) calculated using the CKD-EPI Creatinine Equation (2020), per the National Kidney Foundation and [place] Society of Nephrology recommendations. Blood BLOOD SPECIMEN / Unknown Venipuncture / Unknown 11/04/2024 12:31 AM CDT 11/04/2024 12:38 AM T Ac Jose DO LAB - CHEMISTRY ORDERABLES Final Result [facility] [address] [place] [address], [facility] [phone] * (ABNORMAL) GLUCOSE - POINT OF CARE (11/03/2024 11:50 PM CDT) Glucose WB/POC 116(H) 70 - 99 mg/dL 11/04/2024 4:00 AM [facility] Specimen Type Arterial/C apillary 11/04/2024 4:00 AM [facility] Blood BLOOD SPECIMEN / Unknown 11/03/2024 11:50 PM CDT 11/04/2024 4:00 AM CDT Lamberto Singh MD LAB - POINT OF CARE ORDERABL ES Final Result [facility] [address] [place] [address], [facility] [phone] * (ABNORMAL) NIHAJ-4-XGAEZXLMXTK BLOOD PHENOTYPING PANEL (11/03/2024 8:40 PM CDT) [facility] Ohnvn-2-Uwfxetpwe in Phenotype Contam 11/09/2024 5:54 PM CDT [facility] ([facility]) Comment: Unable to determine the rqxue-6-pbgxvwtcymj phenotype of this patient. The sample appears to have more than two cvthg-6-aospmfaxcbv variants. Because all individuals have only two zogwx-4-urjddguskky alleles, the presence of more than two rplde-1-gsrxzrlhdnp variants is unexpected. This suggests that the patient has been recently transfused or has received therapeutic agents derived from human plasma. If repeat testing is necessary it is recommended that a sample be collected 21 days following the last transfusion or after discontinuing treatment with therapeutics derived from human plasma. Performed By: [facility] [address] [place] [address] Heel Builder: Antonio Serrano MD, PhD CLIA Number: [id number] Lgqte-2-Szbsuvcxa in 254(H) 90 - 200 mg/dL 11/09/2024 5:54 PM CDT [facility] ([facility]) Comment:To convert to umol/L , multiply mg/dL by 0.185 Blood BLOOD SPECIMEN / Unknown Venipuncture / Unknown 11/03/2024 8:40 PM CDT 11/03/2024 8:44 PM CDT us Lamberto Singh MD LAB - CHEMISTRY ORDERABLES F inal Result Performing Organization Address [facility] Co de Phone Number [facility] ([facility]) [address] * LIVER KIDNEY MICROSOME - 1 ANTIBODY IGG (11/03/2024 8:40 PM CDT) Liver-Kidney Microsomal Antibody 0.8 0.0 - 24.9 U 11/08/2024 8:14 PM CDT [email or web address] ([facility]) Comment: REFERENCE INTERVAL: Liver-Kidney Microsome-1 Antibody, IgG [...] of autoimmune hepatitis, type 2. Performed By: [facility] [address] [place] [address] Heel Builder: Antonio Serrano MD, PhD CLIA Number: [id number] Blood BLOOD SPECIMEN / Unknown Venipuncture / Unknown 11/03/2024 8:40 PM CDT 11/03/2024 8:44 PM CDT Lamberto Singh MD LAB - SEROLOGY ORDERABLES Fi nal Result [email or web address]) [address] [place] [address], [facility] * MEREDITH BLOOD SCREEN W/REFLEX TITER (11/03/2024 8:40 PM CDT) Pathologist [facility] MEREDITH IgG None Detected None Detected 11/08/2024 5:43 PM CDT [facility] ([facility]) Comment: No Anti-Nuclear Antibodies (MEREDITH) detected by ARLINE. No further testing will be performed. If suspicion of connective tissue disease is strong and MEREDITH ARLINE is negative, consider testing for MEREDITH by IFA ([id number]). INTERPRETIVE INFORMATION: Anti-Nuclear Antibodies (MEREDITH), IgG by ARLINE Antinuclear Antibodies (MEREDITH), IgG by ARLINE: MEREDITH specimens are screened using enzyme-linked immunosorbent assay (ARLINE) methodology. All ARLINE results reported as Detected are further tested by indirect fluorescent assay (IFA) using HEp-2 substrate with an IgG-specific conjugate. The MEREDITH ARLINE screen is designed to detect antibodies against dsDNA, histones, SS-A (Ro), SS-B (La), Souza, Souza/BOTTLED BEVERAGE INSPECTOR, Scl-70, Roxana-1, centromeric proteins, other antigens extracted from the HEp-2 cell nucleus. MEREDITH ARLINE assays have been reported to have lower sensitivities than MEREDITH IFA for systemic autoimmune rheumatic diseases (SARD). Negative results do not necessarily rule out SARD. Performed By: [place] [address] Heel Builder: Antonio Serrano MD, PhD CLIA Number: [id number] Blood BLOOD SPECIMEN / Unknown Venipuncture / Unknown 11/03/2024 8:40 PM CDT 11/03/2024 8:44 PM CDT us Lamberto Singh MD LAB - CHEMISTRY ORDERABLES F inal Result [facility] ([facility]) [address] [place] [address] * (ABNORMAL) RENAL FUNCTION PANEL (11/03/2024 6:01 PM CDT) BUN 85(H) 7 - 26 mg/dL 11/03/2024 6:31 PM [facility] Creatinine 1.95(H) 0.71 - 1.16 mg/dL 11/03/2024 6:31 PM [facility] Sodium 136 136 - 145 mmol/L 11/03/2024 6:31 PM [facility] Potassium 2.8(L) 3.5 - 4.5 mmol/L 11/03/2024 6:31 PM [facility] Chloride 98 98 - 107 mmol/L 11/03/2024 6:31 PM [facility] CO2 22 22 - 29 mmol/L 11/03/2024 6:31 PM [facility] Glucose 156(H) 70 - 99 mg/dL 11/03/2024 6:31 PM [facility] Albumin 2.5(L) 3.4 - 5.0 g/dL 11/03/2024 6:31 PM [facility] Calcium 7.1(L) 8.4 - 10.2 mg/dL 11/03/2024 6:31 PM T [facility] Phosphorus 2.4(L) 2.8 - 5.1 mg/dL 11/03/2024 6:31 PM [facility] Anion Gap 16 6 - 16 11/03/2024 6:31 PM T [facility] BUN/Creatinine Ratio 44(H) 7 - 23 11/03/2024 6:31 PM T [facility] Osmolality Calculated 311(H) 275 - 295 mOsm/kg 11/03/2024 6:31 PM [facility] eGFR by CKD-EPI 35(L) >=90 mL/min/1.7 3 m2 11/03/2024 6:31 PM T [facility] Comment:Estimated Glomerular Filtration Rate (eGFR) calculated using the CKD-EPI Creatinine Equation (2020), per the National Kidney Foundation and [place] Society of Nephrology recommendations. Blood BLOOD SPECIMEN / Unknown Venipuncture / Unknown 11/03/2024 6:01 PM CDT 11/03/2024 6:08 PM CDT us Ac Jose DO LAB - CHEMISTRY ORDERABLES Final Result [address] [address], [facility] [phone] * MPO/SD 3 AUTOANTIBODIES PANEL (11/03/2024 6:01 PM CDT) Serine Proteinase 3 IgG 3 0 - 19 AU/mL 11/09/2024 4:53 AM CDT [facility] ([facility]) Comment: INTERPRETIVE INFORMATION: Serine Proteinase 3, IgG 19 AU/mL or Less ........ Negative 20-25 AU/mL ............. Equivocal 26 AU/mL or Greater ..... Positive Approximately 85% of patients with a C-ANCA pattern by IFA have antibodies specific for PR3. Performed By: [facility] [address] [place] [id number] Heel Builder: Antonio Serrano MD, PhD CLIA Number: [id number] Myeloperoxidase Antibody 0 0 - 19 AU/mL 11/09/2024 4:53 AM T [facility] ([facility]) Comment: INTERPRETIVE INFORMATION: Myeloperoxidase Abs, IgG 19 AU/mL or Less ......... Negative 20-25 AU/mL .............. Equivocal 26 AU/mL or Greater ...... Positive Approximately 90% of patients with a P-ANCA pattern by IFA have antibodies specific for MPO. Blood BLOOD SPECIMEN / Unknown Venipuncture / Unknown 11/03/2024 6:01 PM CDT 11/03/2024 6:09 PM CDT Lamberto Singh MD LAB - CHEMISTRY ORDERABLES F inal Result [facility]) [address] [place] [address], [facility] * (ABNORMAL) LIPID PROFILE (11/03/2024 8:00 AM CDT) [facility] Cholesterol Total 102 <200 mg/dL 11/03/2024 8:55 AM [facility] HDL 5(L) >40 mg/dL 11/03/2024 8:55 AM [facility] Comment: ATP III Classification of HDL Cholesterol: <40 mg/dL: Considered a major risk factor. >60 mg/dL: Considered a negative risk factor. LDL Calculated 62 <100 mg/dL 11/03/2024 8:55 AM [facility] Comment: ATP III Classification of LDL Cholesterol: <100 mg/dL: Optimal 100 - 129 mg/dL: Near Optimal/Above Optimal 130 - 159 mg/dL: Borderline High 160 - 189 mg/dL: High >190 mg/dL: Very High LDL is calculated using the Friedewald equation. Triglycerides 174(H) <150 mg/dL 11/03/2024 8:55 AM [facility] Comment: ATP III Classification of Triglycerides: <150 mg/dL: Normal 150 - 199 mg/dL: Borderline High 200 - 400 mg/dL: High >500 mg/dL: Very High Blood BLOOD SPECIMEN / Unknown Venipuncture / Unknown 11/03/2024 8:00 AM CDT 11/03/2024 8:12 AM CDT Lamberto Singh MD LAB - CHEMISTRY ORDERABLES F inal Result Performing Organization Address [facility]/ZIP Co de Phone Number [address] [address], [facility] [phone] * (ABNORMAL) HEMOGLOBIN A1C (11/03/2024 8:00 AM CDT) Hemoglobin A1c 6.0(H) <=5.6 % 11/03/2024 9:19 AM T [facility] Estimated Average Glucose 126 mg/dL 11/03/2024 9:19 AM [facility] Comment: HbA1c Interpretation: Normal : < 5.7% Pre-diabetes: 5.7-6.4% Diabetes: Equal to or greater than 6.5% Test results diagnostic of diabetes should be repeated for confirmation. Treatment target values recommended by ADA and other clinical organizations should be used to evaluate metabolic control in patients. Reference: [place] [employer] Association, Standards of Care in Diabetes -2020 In patients 70 years and older consider HbA1c target range of 7.0-7.5% (Reference: Kvng Bloom, et al. JAMDA. 2012) The Sebia assay for the measurement of HbA1c is a National Glycohemoglobin Standardization Program (NGSP) certified method. Blood BLOOD SPECIMEN / Unknown Venipuncture / Unknown 11/03/2024 8:00 AM CDT 11/03/2024 8:12 AM CDT us Lamberto Singh MD LAB - CHEMISTRY ORDERABLES F inal Result Performing Organization Address City/[facility]/ZIP Co de Phone Number [address] [address], [place] [phone] * (ABNORMAL) FERRITIN (11/03/2024 8:00 AM CDT) Ferritin 1,594(H) 22 - 275 ng/mL 11/03/2024 9:48 AM T [facility] Comment:Result obtained by viry hammond. Blood BLOOD SPECIMEN / Unknown Venipuncture / Unknown 11/03/2024 8:00 AM CDT 11/03/2024 8:40 AM CDT Lamberto Singh MD LAB - CHEMISTRY ORDERABLES F inal Result Performing Organization Address [facility] Co de Phone Number [address] [address], [facility] [phone] * TSH (11/03/2024 8:00 AM CDT) TSH 1.267 0.350 - 4.940 uIU/mL 11/03/2024 9:13 AM T [facility] Blood BLOOD SPECIMEN / Unknown Venipuncture / Unknown 11/03/2024 8:00 AM CDT 11/03/2024 8:12 AM CDT Lamberto Singh MD LAB - CHEMISTRY ORDERABLES F inal Result Performing Organization Address [facility] [place]/[facility] de Phone Number [address] [address], [facility] [phone] * (ABNORMAL) RENAL FUNCTION PANEL (11/03/2024 8:00 AM CDT) BUN 91(H) 7 - 26 mg/dL 11/03/2024 8:55 AM [facility] Creatinine 2.42(H) 0.71 - 1.16 mg/dL 11/03/2024 8:55 AM [facility] Sodium 139 136 - 145 mmol/L 11/03/2024 8:55 AM [facility] Potassium 3.4(L) 3.5 - 4.5 mmol/L 11/03/2024 8:55 AM [facility] Chloride 97(L) 98 - 107 mmol/L 11/03/2024 8:55 AM [facility] CO2 24 22 - 29 mmol/L 11/03/2024 8:55 AM [facility] Glucose 124(H) 70 - 99 mg/dL 11/03/2024 8:55 AM [facility] Albumin 2.8(L) 3.4 - 5.0 g/dL 11/03/2024 8:55 AM [facility] Calcium 7.1(L) 8.4 - 10.2 mg/dL 11/03/2024 8:55 AM [facility] Phosphorus 2.8 2.8 - 5.1 mg/dL 11/03/2024 8:55 AM [facility] Anion Gap 18(H) 6 - 16 11/03/2024 8:55 AM [facility] BUN/Creatinine Ratio 38(H) 7 - 23 11/03/2024 8:55 AM [facility] Osmolality Calculated 317(H) 275 - 295 mOsm/kg 11/03/2024 8:55 AM [facility] eGFR by CKD-EPI 27(L) >=90 mL/min/1.7 3 m2 11/03/2024 8:55 AM [facility] Comment:Estimated Glomerular Filtration Rate (eGFR) calculated using the CKD-EPI Creatinine Equation (2020), per the [employer] and [place] [employer] recommendations. Blood BLOOD SPECIMEN / Unknown Venipuncture / Unknown 11/03/2024 8:00 AM CDT 11/03/2024 8:12 AM CDT us Ac Jose DO LAB - CHEMISTRY ORDERABLES Final Result [address] [phone], [place] [facility] [phone] * (ABNORMAL) COMPREHENSIVE METABOLIC PANEL (11/03/2024 12:46 AM CDT) BUN 90(H) 7 - 26 mg/dL 11/03/2024 1:24 AM [facility] Creatinine 2.63(H) 0.71 - 1.16 mg/dL 11/03/2024 1:24 AM [facility] Sodium 137 136 - 145 mmol/L 11/03/2024 1:24 AM [facility] Potassium 3.3(L) 3.5 - 4.5 mmol/L 11/03/2024 1:24 AM [facility] Chloride 96(L) 98 - 107 mmol/L 11/03/2024 1:24 AM [facility] CO2 24 22 - 29 mmol/L 11/03/2024 1:24 AM [facility] Glucose 145(H) 70 - 99 mg/dL 11/03/2024 1:24 AM [facility] Calcium 6.8(L) 8.4 - 10.2 mg/dL 11/03/2024 1:24 AM [facility] Protein Total 5.5(L) 6.0 - 8.3 g/dL 11/03/2024 1:24 AM [facility] Albumin 2.7(L) 3.4 - 5.0 g/dL 11/03/2024 1:24 AM [facility] Bilirubin Total 2.7(H) 0.2 - 1.2 mg/dL 11/03/2024 1:24 AM [facility] Alkaline Phosphatase 121 40 - 150 U/L 11/03/2024 1:24 AM [facility] ALT 2,637(H) 5 - 55 U/L 11/03/2024 1:24 AM [facility] AST 941(H) 5 - 34 U/L 11/03/2024 1:24 AM [facility] Anion Gap 17(H) 6 - 16 11/03/2024 1:24 AM [facility] BUN/Creatinine Ratio 34(H) 7 - 23 11/03/2024 1:24 AM [facility] Osmolality Calculated 314(H) 275 - 295 mOsm/kg 11/03/2024 1:24 AM [facility] Albumin/Globulin Ratio 1.0(L) 1.1 - 2.3 11/03/2024 1:24 AM [facility] eGFR by CKD-EPI 24(L) >=90 mL/min/1. 73 m2 11/03/2024 1:24 AM [facility] Comment:Estimated Glomerular Filtration Rate (eGFR) calculated using the CKD-EPI Creatinine Equation (2020), per the National Kidney Foundation and [place] [employer] of Nephrology recommendations. Blood BLOOD SPECIMEN / Unknown Venipuncture / Unknown 11/03/2024 12:46 AM CDT 11/03/2024 12:54 AM CDT Lamberto Singh MD LAB - CHEMISTRY ORDERABLES F inal Result Performing Organization Address [facility] [place]/[facility] Co de Phone Number [address] [address], [facility] [phone] * (ABNORMAL) PT-INR (11/03/2024 12:46 AM CDT) PT 23.6(H) 12.1 - 14.8 Seconds 11/03/2024 1:28 AM CDT [facility] INR 2.2 See Comment 11/03/2024 1:28 AM CDT [facility] Comment:The suggested therap eutic range for standard coumadin (warfarin) therapy is an INR of 2.0-3.0. For high-risk patients (Mechanical Mitral Valve Prosthesis, etc.), the suggested prophylactic therapeutic range is an INR of 2.5-3.5. Blood BLOOD SPECIMEN / Unknown Venipuncture / Unknown 11/03/2024 12:46 AM CDT 11/03/2024 12:54 AM CDT Lamberto Singh MD LAB - COAGULATION ORDERABLES Final Result Performing Organization Address [facility] Co de Phone Number [address] [address], [facility] [phone] * MAGNESIUM BLOOD (11/03/2024 12:46 AM CDT) Magnesium 2.4 1.6 - 2.6 mg/dL 11/03/2024 1:24 AM CDT [facility] Blood BLOOD SPECIMEN / Unknown Venipuncture / Unknown 11/03/2024 12:46 AM CDT 11/03/2024 12:54 AM CDT Lamberto Singh MD LAB - CHEMISTRY ORDERABLES F inal Result [facility] [address] [place] [address], [facility] [phone] * (ABNORMAL) CBC W AUTO DIFFERENTIAL (11/03/2024 12:46 AM CDT) WBC 12.0(H) 4.0 - 10.7 x10E9/L 11/03/2024 12:57 AM [facility] RBC Count 4.20(L) 4.30 - 5.80 x10E12/L 11/03/2024 12:57 AM [facility] Hemoglobin 12.3(L) 13.3 - 17.5 g/dL 11/03/2024 12:57 AM [facility] Hematocrit 34.8(L) 38.7 - 51.1 % 11/03/2024 12:57 AM [facility] MCV 82.9 80.0 - 98.0 fL 11/03/2024 12:57 AM [facility] MCH 29.3 26.7 - 33.6 pg 11/03/2024 12:57 AM [facility] MCHC 35.3 31.7 - 36.3 g/dL 11/03/2024 12:57 AM [facility] RDW-CV 13.8 11.3 - 14.8 % 11/03/2024 12:57 AM [facility] Platelet Count 121(L) 150 - 420 x10E9/L 11/03/2024 12:57 AM [facility] MPV 11.0 7.8 - 11.4 fL 11/03/2024 12:57 AM [facility] Neutrophil % 90.8(H) 41.0 - 74.0 % 11/03/2024 12:57 AM [facility] Lymphocyte % 2.7(L) 17.0 - 47.0 % 11/03/2024 12:57 AM [facility] Monocyte % 5.9 3.0 - 11.0 % 11/03/2024 12:57 AM [facility] Eosinophil % 0.0 0.0 - 7.0 % 11/03/2024 12:57 AM [facility] Basophil % 0.2 0.0 - 1.6 % 11/03/2024 12:57 AM [facility] Immature Granulocytes % 0.4 0.0 - 1.0 % 11/03/2024 12:57 AM [facility] Neutrophil Absolute 10.94(H) 1.60 - 7.50 x10E9/L 11/03/2024 12:57 AM [facility] Lymphocyte Absolute 0.32(L) 1.00 - 4.40 x10E9/L 11/03/2024 12:57 AM [facility] Monocyte Absolute 0.71 0.15 - 1.00 x10E9/L 11/03/2024 12:57 AM [facility] Eosinophil Absolute 0.00 0.00 - 0.60 x10E9/L 11/03/2024 12:57 AM [facility] Basophil Absolute 0.02 0.00 - 0.13 x10E9/L 11/03/2024 12:57 AM [facility] Blood BLOOD SPECIMEN / Unknown Venipuncture / Unknown 11/03/2024 12:46 AM CDT 11/03/2024 12:54 AM CDT us Lamberto Singh MD LAB - HEMATOLOGY ORDERABLES Final Result Performing Organization Address [facility]/State/[facility] Co de Phone Number [facility] [address] [place] [phone], [facility] [phone] * (ABNORMAL) RENAL FUNCTION PANEL (11/03/2024 12:46 AM CDT) BUN 90(H) 7 - 26 mg/dL 11/03/2024 1:24 AM [facility] Creatinine 2.63(H) 0.71 - 1.16 mg/dL 11/03/2024 1:24 AM [facility] Sodium 137 136 - 145 mmol/L 11/03/2024 1:24 AM [facility] Potassium 3.3(L) 3.5 - 4.5 mmol/L 11/03/2024 1:24 AM [facility] Chloride 96(L) 98 - 107 mmol/L 11/03/2024 1:24 AM [facility] CO2 24 22 - 29 mmol/L 11/03/2024 1:24 AM [facility] Glucose 145(H) 70 - 99 mg/dL 11/03/2024 1:24 AM [facility] Albumin 2.7(L) 3.4 - 5.0 g/dL 11/03/2024 1:24 AM [facility] Calcium 6.8(L) 8.4 - 10.2 mg/dL 11/03/2024 1:24 AM [facility] Phosphorus 2.9 2.8 - 5.1 mg/dL 11/03/2024 1:24 AM [facility] Anion Gap 17(H) 6 - 16 11/03/2024 1:24 AM [facility] BUN/Creatinine Ratio 34(H) 7 - 23 11/03/2024 1:24 AM [facility] Osmolality Calculated 314(H) 275 - 295 mOsm/kg 11/03/2024 1:24 AM [facility] eGFR by CKD-EPI 24(L) >=90 mL/min/1.7 3 m2 11/03/2024 1:24 AM [facility] Comment:Estimated Glomerular Filtration Rate (eGFR) calculated using the CKD-EPI Creatinine Equation (2020), per the National Kidney Foundation and [place] [employer] of Nephrology recommendations. Blood BLOOD SPECIMEN / Unknown Venipuncture / Unknown 11/03/2024 12:46 AM CDT 11/03/2024 12:54 AM T us Ac Jose DO LAB - CHEMISTRY ORDERABLES Final Result [facility] [address] [place] [phone], [facility] [phone] * (ABNORMAL) CALCIUM IONIZED WHOLE BLOOD (11/03/2024 12:46 AM CDT) Calcium Ionized 0.87 mmol/L 11/03/2024 12:55 AM [facility] pH 7.48(H) 7.35 - 7.45 pH 11/03/2024 12:55 AM [facility] Ionized Calcium pH Adjusted 0.90(L) 1.19 - 1.34 mmol/L 11/03/2024 12:55 AM [facility] Blood BLOOD SPECIMEN / Unknown Venipuncture / Unknown 11/03/2024 12:46 AM CDT 11/03/2024 12:52 AM CDT us Lamberto Singh MD LAB - CHEMISTRY ORDERABLES F inal Result [facility] [address] [place] [address], [facility] [phone] * (ABNORMAL) RENAL FUNCTION PANEL (11/02/2024 8:47 PM T) BUN 90(H) 7 - 26 mg/dL 11/02/2024 9:20 PM [facility] Creatinine 2.85(H) 0.71 - 1.16 mg/dL 11/02/2024 9:20 PM [facility] Sodium 137 136 - 145 mmol/L 11/02/2024 9:20 PM [facility] Potassium 3.2(L) 3.5 - 4.5 mmol/L 11/02/2024 9:20 PM [facility] Chloride 93(L) 98 - 107 mmol/L 11/02/2024 9:20 PM [facility] CO2 23 22 - 29 mmol/L 11/02/2024 9:20 PM [facility] Glucose 164(H) 70 - 99 mg/dL 11/02/2024 9:20 PM [facility] Albumin 2.9(L) 3.4 - 5.0 g/dL 11/02/2024 9:20 PM [facility] Calcium 6.7(L) 8.4 - 10.2 mg/dL 11/02/2024 9:20 PM [facility] Phosphorus 3.4 2.8 - 5.1 mg/dL 11/02/2024 9:20 PM [facility] Anion Gap 21(H) 6 - 16 11/02/2024 9:20 PM CDT [facility] BUN/Creatinine Ratio 32(H) 7 - 23 11/02/2024 9:20 PM T [facility] Osmolality Calculated 315(H) 275 - 295 mOsm/kg 11/02/2024 9:20 PM T [facility] eGFR by CKD-EPI 22(L) >=90 mL/min/1.7 3 m2 11/02/2024 9:20 PM T [facility] Comment:Estimated Glomerular Filtration Rate (eGFR) calculated using the CKD-EPI Creatinine Equation (2020), per the National Kidney Foundation and [place] [employer] of Nephrology recommendations. Blood BLOOD SPECIMEN / Unknown Venipuncture / Unknown 11/02/2024 8:47 PM CDT 11/02/2024 8:49 PM CDT us Ac Jose DO LAB - CHEMISTRY ORDERABLES Final Result Performing Organization Address [facility] [place]/[facility]/ZIP Co de Phone Number [address] [address], [place] [phone] * (ABNORMAL) PT-INR (11/02/2024 5:59 PM CDT) PT 25.5(H) 12.1 - 14.8 Seconds 11/02/2024 7:43 PM T [facility] INR 2.4 See Comment 11/02/2024 7:43 PM T [facility] Comment:The suggested therap eutic range for standard coumadin (warfarin) therapy is an INR of 2.0-3.0. For high-risk patients (Mechanical Mitral Valve Prosthesis, etc.), the suggested prophylactic therapeutic range is an INR of 2.5-3.5. Blood BLOOD SPECIMEN / Unknown Venipuncture / Unknown 11/02/2024 5:59 PM CDT 11/02/2024 7:15 PM CDT us Lamberto Singh MD LAB - COAGULATION ORDERABLES Final Result Performing Organization Address [facility] [place]/[facility]/ZIP Co de Phone Number [address] [address], [place] [phone] * CULTURE BLOOD (11/02/2024 5:59 PM CDT) Culture No growth day 5 CRISTOBAL 11/07/2024 11:32 PM CDT [facility] Blood PERIPHERAL BLOOD / Unknown Venipuncture / Unknown 11/02/2024 5:59 PM CDT 11/02/2024 6:27 PM CDT us Lamberto Singh MD LAB - MICROBIOLOGY ORDERABLE S Final Result Performing Organization Address City/[facility]/ZIP Co de Phone Number [facility] [address] [place] [address], [facility] [phone] * CULTURE BLOOD (11/02/2024 5:59 PM CDT) Culture No growth day 5 CRISTOBAL 11/07/2024 11:32 PM CDT [facility] Blood PERIPHERAL BLOOD / Unknown Venipuncture / Unknown 11/02/2024 5:59 PM CDT 11/02/2024 6:32 PM CDT us Lamberto Singh MD LAB - MICROBIOLOGY ORDERABLE S Final Result Performing Organization Address [facility] [place] Co de Phone Number [facility] [address] [place] [address], [facility] [phone] * ECHO COMPLETE W CONTRAST (11/02/2024 5:07 [...] mmHg [facility] CV FUJI PACS LVOT pk jermaine 87.011 cm/s [facility] CV F UJI PACS LVOT VTI 11.692 cm [facility] CV FUJ I PACS RVOT pk jermaine 82.465 cm/s [facility] CV F UJI PACS RVOT VTI 11.313 cm [facility] CV FUJ I PACS LA size 3.481 cm [facility] CV FUJ I PACS AV area pk jermaine 1.759 cm [facility] CV FUJI PACS AV area cont VTI 1.83 cm [facility] CV FUJI PACS AV pk grad 9.012 mmHg [facility] CV FU JI PACS AV mn grad 5.097 mmHg [facility] CV FU JI PACS AV pk jermaine 201.898 cm/s [facility] CV FUJ I PACS AV VTI 26.07 cm [facility] CV FUJ I PACS MV A pk jermaine 90.585 cm/s [facility] CV F UJI PACS MV E pk jermaine 73.68 cm/s [facility] CV F UJI PACS PV pk jermaine 88.904 cm/s [facility] CV FUJ I PACS [...] 4:36 PM Patient Status: I/P Study Site: [facility] Primary Location: [facility] EStudy Info Technical Quality: Fair Exam Type: [...] Provider: Lamberto Singh Attending Physician: Lamberto Singh Transfer Knitter: Jose Nava Left Ventricle Left ventricular systolic [...] 1.83 cm2 >=2.00 AV Area (Cont Eq Jermaine) 1.76 cm2 AV DI (VTI) 0.45 AV DI (Jermaine) 0.43 AV Regurgitation 2D LVOT Area 4.08 [...] (2D) 1.9 cm/m2 Report Signatures Finalized by Tracey Anderson on 11/02/2024 06:41 PM Procedure Note Tracey Anderson MD - 11/02/2024 Summary * The left [...] 4:36 PM Patient Status: I/P Study Site: [facility] Primary Location: [facility] EStudy Info Technical Quality: Fair Exam Type: [...] Provider: Lamberto Singh Attending Physician: Lamberto Singh Transfer Knitter: Jose Nava Left Ventricle Left ventricular systolic [...] 1.83 cm2 >=2.00 AV Area (Cont Eq Jermaine) 1.76 cm2 AV DI (VTI) 0.45 AV DI (Jermaine) 0.43 AV Regurgitation 2D LVOT Area 4.08 [...] (2D) 1.9 cm/m2 Report Signatures Finalized by Tracey Anderson on 11/02/2024 06:41 PM us Lamberto Singh MD ECHO CUPID Final Result * EKG 12-Lead (11/02/2024 11:46 AM CDT) Ventricular Rate 101 BPM [facility] Atrial Rate 101 BPM [facility] P-R Interval 140 ms [facility] QRS Duration ms 100 ms [facility] Q-T Interval ms 328 ms [facility] QTC Calculation (Bezet) 425 ms [facility] Calculated P Minden 50 degrees [facility] Calculated R Minden -7 degrees [facility] Calculated T Minden 137 degrees [facility] Interpretation EKG SINUS TACHYCARDIA WITH PREMATURE SUPRAVENTRICULAR COMPLEXES MODERATE VOLTAGE CRITERIA FOR LVH, MAY BE NORMAL VARIANT ( R in aVL , Hadley product ) INFERIOR INFARCT , AGE UNDETERMINED ST & T WAVE ABNORMALITY, CONSIDER LATERAL ISCHEMIA ABNORMAL ECG WHEN COMPARED WITH ECG OF 02-NOV-2024 05:29, NO SIGNIFICANT CHANGE WAS FOUND Confirmed by TRACEY ANDERSON MD ([id number]) on 11/04/2024 8:42:48 PM [facility] MUSE 11/02/2024 11:4 6 AM CDT 11/04/2024 8:42 PM CDT Lamberto Singh MD ECG ORDERABLES Edited Resul t - Final Performing Organization Address City/[facility]/ZIP Co de Phone Number [facility] MUSE * (ABNORMAL) B-TYPE NATRIURETIC PEPTIDE (11/02/2024 11:41 AM CDT) BNP 847(H) <100 pg/mL 11/02/2024 12:31 PM CDT [facility] Comment: A decision threshold of 100 pg/mL [...] LAB - CHEMISTRY ORDERABLES F inal Result [facility] [address] [place] [address], [facility] [phone] * (ABNORMAL) LACTIC ACID BLOOD (11/02/2024 11:41 AM CDT) Lactic Acid-Stat 2.8(H) <=2.0 mmol/L 11/02/2024 12:20 PM CDT [facility] Blood BLOOD SPECIMEN / Unknown Venipuncture / Unknown 11/02/2024 11:41 AM CDT 11/02/2024 11:54 AM CDT us Lamberto Singh MD LAB - CHEMISTRY ORDERABLES F inal Result Performing Organization Address City/[facility]/ZIP Co de Phone Number [address] [address], [place] [phone] * (ABNORMAL) TROPONIN-I HIGH SENSITIVE (11/02/2024 11:41 AM CDT) [facility] Troponin I High Sensitive 113(H) <=35 ng/L 11/02/2024 12:30 PM CDT [facility] Blood BLOOD SPECIMEN / Unknown Venipuncture / Unknown 11/02/2024 11:41 AM CDT 11/02/2024 11:55 AM CDT us Lamberto Singh MD LAB - CHEMISTRY ORDERABLES F inal Result Performing Organization Address [facility]/ZIP Co de Phone Number [address] [address], [place] [phone] * SODIUM URINE RANDOM (11/02/2024 11:27 AM CDT) Pathologist [facility] Sodium Urine 35 Not Established mmol/L 11/02/2024 12:14 PM CDT [facility] Urine URINE SPECIMEN OBTAINED BY CLEAN CATCH PROCEDURE / Unknown Collection / Unknown 11/02/2024 11:27 AM CDT 11/02/2024 11:46 AM CDT us Lamberto Singh MD LAB - URINE CHEMISTRY ORDERA BLES Final Result Performing Organization Address City/[facility]/ZIP Co de Phone Number [address] [address], [facility] [phone] * CREATININE URINE RANDOM (11/02/2024 11:27 AM CDT) Creatinine Urine 79.19 Not Established mg/dL 11/02/2024 12:14 PM CDT [facility] Urine URINE SPECIMEN OBTAINED BY CLEAN CATCH PROCEDURE / Unknown Collection / Unknown 11/02/2024 11:27 AM CDT 11/02/2024 11:46 AM CDT Lamberto Singh MD LAB - URINE CHEMISTRY ORDERA BLES Final Result Performing Organization Address City/[facility]/ZIP Co de Phone Number [address] [address], [facility] [phone] * UREA NITROGEN URINE RANDOM (11/02/2024 11:27 AM CDT) Urea Nitrogen Random Urine 472 Not Established mg/dL 11/02/2024 12:14 PM CDT [facility] Urine URINE SPECIMEN OBTAINED BY CLEAN CATCH PROCEDURE / Unknown Collection / Unknown 11/02/2024 11:27 AM CDT 11/02/2024 11:46 AM CDT us Lamberto Singh MD LAB - URINE CHEMISTRY ORDERA BLES Final Result Performing Organization Address City/[facility]/ZIP Co de Phone Number [address] [address], [facility] [phone] * XR Abdomen Kub Portable (11/02/2024 9:57 [...] pleural effusion 4. Trace fluid in the Angluo's pouch Report dictated by Zachary Rushign MD (Animal Humane Agent Supervisor) IZan MD have personally reviewed and interpreted this examination/study. > Interpreting Provider: Zan Cortes MD on 11/02/2024 1:40 PM Narrative 11/02/2024 1:40 PM CDT PROCEDURE: US ABDOMEN LTD W COMP DOPPLER, DATE/TIME OF EXAM: 11/02/2024 9:48 AM, LOCATION [facility] INDICATION: S36.119A: Hepatic trauma, initial encounter [...] DATE/TIME OF EXAM: 11/02/2024 9:48 AM, LOCATION [facility] INDICATION: S36.119A: Hepatic trauma, initial encounter [...] pouch Report dictated by Zachary Rushing MD (Animal Humane Agent Supervisor) IZan MD have personally reviewed and interpreted this examination/study. > Interpreting Provider: Zan Cortes MD on 11/02/2024 1:40 PM Lamberto Singh MD ORDERABLES Final Result * RESPIRATORY PANEL WITH SARS-COV-2 BY PCR ([facility]) (11/02/2024 8:18 AM CDT) Adenovirus PCR Not detected Not detected 11/02/2024 4:24 PM CDT [facility] Coronavirus 229E PCR Not detected Not detected 11/02/2024 4:24 PM CDT [facility] Coronavirus HKU1 PCR Not detected Not detected 11/02/2024 4:24 PM CDT [facility] Coronavirus NL63 PCR Not detected Not detected 11/02/2024 4:24 PM CDT [facility] Coronavirus OC43 PCR Not detected Not detected 11/02/2024 4:24 PM CDT [facility] COVID-19 PCR Not detected Not detected 11/02/2024 4:24 PM CDT [facility] Human Metapneumovirus PCR Not detected Not detected 11/02/2024 4:24 PM CDT [facility] Human Rhinovirus/Enterov irus PCR Not detected Not detected 11/02/2024 4:24 PM CDT [facility] Influenza A PCR Not detected Not detected 11/02/2024 4:24 PM CDT [facility] Influenza B PCR Not detected Not detected 11/02/2024 4:24 PM CDT [facility] Parainfluenza Virus 1 PCR Not detected Not detected 11/02/2024 4:24 PM CDT [facility] Parainfluenza Virus 2 PCR Not detected Not detected 11/02/2024 4:24 PM CDT [facility] Parainfluenza Virus 3 PCR Not detected Not detected 11/02/2024 4:24 PM CDT [facility] Parainfluenza Virus 4 PCR Not detected Not detected 11/02/2024 4:24 PM CDT [facility] Respiratory Syncytial Virus PCR Not detected Not detected 11/02/2024 4:24 PM CDT [facility] Bordetella parapertussis PCR Not detected Not detected 11/02/2024 4:24 PM CDT [facility] Bordetella pertussis PCR Not detected Not detected 11/02/2024 4:24 PM CDT [facility] Chlamydia pneumoniae PCR Not detected Not detected 11/02/2024 4:24 PM CDT [facility] Mycoplasma pneumoniae PCR Not detected Not detected 11/02/2024 4:24 PM CDT [facility] Microbiology SPECIMEN FROM NASOPHARYNGEAL STRUCTURE / Unknown Collection / Unknown 11/02/2024 8:18 AM CDT 11/02/2024 9:08 AM CDT Narrative [facility] - 11/02/2024 4:24 PM CDT This nucleic amplification assay has received FDA authorization via the [employer]. Lamberto Singh MD LAB - MICROBIOLOGY ORDERABLE S Final Result [facility] [address] [place] [address], [facility] [phone] * (ABNORMAL) TROPONIN-I HIGH SENSITIVE (11/02/2024 8:16 AM CDT) Pathologist [facility] Troponin I High Sensitive 137(H) <=35 ng/L 11/02/2024 9:00 AM CDT [facility] Blood BLOOD SPECIMEN / Unknown Venipuncture / Unknown 11/02/2024 8:16 AM CDT 11/02/2024 8:23 AM CDT us Lamberto Singh MD LAB - CHEMISTRY ORDERABLES F inal Result [facility] [address] [place] [address], [facility] [phone] * XR Chest 1Vw Portable (11/02/2024 5:41 [...] Taisha Seymour MD on 11/02/2024 12:55 PM us Edgard Guajardo MD DIAGNOSTIC IMAGING ORDERABLES F inal Result * EKG 12-Lead (11/02/2024 5:29 AM CDT) Ventricular Rate 112 BPM [facility] MUSE Atrial Rate 112 BPM [facility] MUSE P-R Interval 160 ms [facility] MUSE QRS Duration ms 100 ms [facility] MUSE Q-T Interval ms 348 ms [facility] QTC Calculation (Bezet) 475 ms [facility] Calculated P [place] 51 degrees [facility] MUSE Calculated R [place] -2 degrees [facility] Calculated T [place] 144 degrees [facility] Interpretation EKG SINUS TACHYCARDIA WITH PREMATURE ATRIAL COMPLEXES MINIMAL VOLTAGE CRITERIA FOR LVH, MAY BE NORMAL VARIANT ( [employer] product ) INFERIOR INFARCT , AGE UNDETERMINED ABNORMAL ECG NO PREVIOUS ECGS AVAILABLE Confirmed by TRACEY ANDERSON MD ([id number]) on 11/04/2024 8:37:54 PM [facility] 11/02/2024 5:29 AM CDT 11/04/2024 8:37 PM CDT us Edgard Guajardo MD ECG ORDERABLES Edited Result - Final [facility] * (ABNORMAL) URINALYSIS REFLEX TO MICROSCOPIC NO CULTURE (11/01/2024 11:39 PM CDT) Color UA Yellow Yellow, Straw 11/01/2024 11:57 PM T [facility] Clarity UA Turbid(A) Clear 11/01/2024 11:57 PM [facility] Glucose UA Normal Normal 11/01/2024 11:57 PM [facility] Bilirubin UA Negative Negative 11/01/2024 11:57 PM [facility] Ketone UA Negative Negative 11/01/2024 11:57 PM [facility] Specific [place] UA 1.014 1.005 - 1.030 11/01/2024 11:57 PM [facility] Blood UA 2+(A) Negative 11/01/2024 11:57 PM [facility] pH UA 5.0 5.0 - 8.0 11/01/2024 11:57 PM [facility] Protein UA Trace(A) Negative 11/01/2024 11:57 PM [facility] Urobilinogen UA Normal Normal mg/dL 025 11:57 PM [facility] Nitrite UA Negative Negative 11/01/2024 11:57 PM [facility] Leukocyte Esterase UA Negative Negative 11/01/2024 11:57 PM CDT [facility] RBC UA 6-10(A) 0 - 5 # /hpf 11/01/2024 11:57 PM CDT [facility] WBC UA 6-10(A) 0 - 5 # /hpf 11/01/2024 11:57 PM CDT [facility] Bacteria UA Trace(A) None Seen 11/01/2024 11:57 PM CDT [facility] Squamous Epithelial Cells 0-2 0 - 5 /hpf 11/01/2024 11:57 PM CDT [facility] Urine URINE SPECIMEN OBTAINED VIA [employer] [facility]IN[facility] CATHETER / Unknown Collection / Unknown 11/01/2024 11:39 PM CDT 11/01/2024 11:48 PM CDT Edgard Guajardo MD LAB - URINALYSIS ORDERABLES Fin al Result Performing Organization Address City/[facility]/ZIP Co de Phone Number [address] [address], [facility] [phone] * (ABNORMAL) TROPONIN-I HIGH SENSITIVE (11/01/2024 11:23 PM CDT) Troponin I High Sensitive 169(H) <=35 ng/L 11/02/2024 12:43 AM CDT [facility] Blood BLOOD SPECIMEN / Unknown Venipuncture / Unknown 11/01/2024 11:23 PM CDT 11/01/2024 11:52 PM CDT Edgard Guajardo MD LAB - CHEMISTRY ORDERABLES Kaitlynn l Result [address] [address], [place] [phone] * (ABNORMAL) AMMONIA (11/01/2024 11:23 PM CDT) Ammonia 80(H) <=72 umol/L 11/02/2024 12:11 AM CDT [facility] Blood BLOOD SPECIMEN / Unknown Venipuncture / Unknown 11/01/2024 11:23 PM CDT 11/01/2024 11:52 PM CDT us Edgard Guajardo MD LAB - CHEMISTRY ORDERABLES Kaitlynn l Result Performing Organization Address City/[facility]/ZIP Co de Phone Number [address] [address], [facility] [phone] * CERULOPLASMIN (11/01/2024 11:23 PM CDT) [facility] Ceruloplasmin 32 20 - 60 mg/dL 11/02/2024 12:45 AM CDT [facility] Blood BLOOD SPECIMEN / Unknown Venipuncture / Unknown 11/01/2024 11:23 PM CDT 11/01/2024 11:49 PM CDT Edgard Guajardo MD LAB - CHEMISTRY ORDERABLES Kaitlynn l Result Performing Organization Address [facility] de Phone Number [address] [address], [facility] [phone] * HEPATITIS C RNA QUANTITATIVE (11/01/2024 11:23 PM CDT) [facility] Hepatitis C RNA PCR, Interp Not detected Not detected 11/02/2024 10:55 AM CDT [facility] Hepatitis C Quant by PCR, Log NA log IU/mL 11/02/2024 10:55 AM CDT [facility] Blood BLOOD SPECIMEN / Unknown Venipuncture / Unknown 11/01/2024 11:23 PM CDT 11/02/2024 12:34 AM CDT Narrative [facility] - 11/02/2024 10:55 AM CDT The Hepatitis C viral (HCV) RNA analysis utilized a serum sample, real-time reverse right of way worker PCR, and is reported as Not Detected, [...] the isolation of HCV RNA with reverse right of way worker of genomic HCV RNA followed by real-time PCR in the presence of an unrelated RNA internal control. The internal control ensures that RNA is isolated, and that no general significant inhibitors of the RT-PCR process are present. The analysis was performed using a U.S. FDA approved test methodology Viraj genna HCV. Edgard Guajardo MD LAB - CHEMISTRY ORDERABLES Kaitlynn l Result [facility] [address] [place] [address], [facility] [phone] * HEPATITIS B DNA QUANT (11/01/2024 11:23 PM CDT) [facility] HBV Qnt by NAAT Interp Not Detected Not Detected 11/04/2024 1:43 AM CDT [employer] ([facility]) Comment: INTERPRETIVE INFORMATION: HBV by Quantitative NAAT [...] and cellular tissue-based products (HCT/P). Performed By: [facility] [address] [place] [id number] Heel Builder: Antonio Serrano MD, PhD CLIA Number: [id number] HBV Qnt by NAAT IU/mL Not Detected IU/mL 11/04/2024 1:43 AM CDT [employer] ([facility]) HBV Qnt by NAAT log IU/mL Not Detected log IU/mL 11/04/2024 1:43 AM CDT [facility] [employer] ([facility]) Blood BLOOD SPECIMEN / Unknown Venipuncture / Unknown 11/01/2024 11:23 PM CDT 11/01/2024 11:50 PM CDT Edgard Guajardo MD LAB - CHEMISTRY ORDERABLES Kaitlynn perkins Result [facility] [employer] [facility]) [address] * SMOOTH MUSCLE ANTIBODY W REFLEX TITER (11/01/2024 11:23 PM CDT) F-Actin Antibody IgG 7 0 - 19 Units 11/04/2024 5:33 AM CDT [facility] [employer] ([facility]) Comment: If F-Actin (Smooth Muscle) Antibody, IgG [...] suspicion for AIH is strong. Performed By: [facility] [address] [place] [address] Heel Builder: Antonio Serrano MD, PhD CLIA Number: [id number] Blood BLOOD SPECIMEN / Unknown Venipuncture / Unknown 11/01/2024 11:23 PM CDT 11/01/2024 11:49 PM CDT Edgard Guajardo MD LAB - SEROLOGY ORDERABLES Final Result [email or web address] [facility]) [address] * (ABNORMAL) PT-INR (11/01/2024 11:23 PM CDT) PT 29.5(H) 12.1 - 14.8 Seconds 11/02/2024 12:15 AM CDT [facility] INR 2.9 See Comment 11/02/2024 12:15 AM CDT [facility] Comment:The suggested therap eutic range for standard coumadin (warfarin) therapy is an INR of 2.0-3.0. For high-risk patients (Mechanical Mitral Valve Prosthesis, etc.), the suggested prophylactic therapeutic range is an INR of 2.5-3.5. Blood BLOOD SPECIMEN / Unknown Venipuncture / Unknown 11/01/2024 11:23 PM CDT 11/01/2024 11:52 PM CDT Edgard Guajardo MD LAB - COAGULATION ORDERABLES Fi nal Result Performing Organization Address City/[facility]/ZIP Co de Phone Number [facility] [address] [place] [address], [facility] [phone] * MITOCHONDRIAL ANTIBODY SCREEN (11/01/2024 11:23 PM CDT) Mitochondrial M2 Antibody 5.3 0.0 - 24.9 Units 11/04/2024 12:12 AM CDT [email or web address] [facility] ([facility]) Comment: REFERENCE INTERVAL: Mitochondrial (M2) Antibody, IgG [...] does not rule out PBC. Performed By: [facility] [address] [place] [address] Heel Builder: Antonio Serrano MD, PhD CLIA Number: [id number] Blood BLOOD SPECIMEN / Unknown Venipuncture / Unknown 11/01/2024 11:23 PM CDT 11/01/2024 11:50 PM CDT Edgard Guajardo MD LAB - CHEMISTRY ORDERABLES Kaitlynn l Result Performing Organization Address City/[facility]/ZIP Co de Phone Number [facility] [employer] ([facility]) [address] [place], [place] [address] * HEPATITIS B SURFACE ANTIBODY QUANT (11/01/2024 11:23 PM CDT) Hepatitis B Virus Surface Antibody Non-react palma Non-react palma 11/02/2024 1:44 AM CDT [facility] Comment: < 8 mIU/mL Hepatitis B surface Antibody (HBsAb). Nonreactive for HBsAb - individual is considered not immune to Hepatitis B Virus infection. Hepatitis B Surface Antibody Quantitative <3.0 <8.0 mIU/mL 11/02/2024 1:44 AM CDT [facility] Comment: Hepatitis B Surface Antibody Numeric Result Interpretation: Nonreactive: <8.0 mIU/mL Indeterminate: 8.0 - 12.0 mIU/mL Reactive: >12.0 mIU/mL Blood BLOOD SPECIMEN / Unknown Venipuncture / Unknown 11/01/2024 11:23 PM CDT 11/01/2024 11:49 PM CDT Narrative [facility] - 11/02/2024 1:44 AM CDT This assay should not be used for blood, plasma, or tissue donor screening. This assay is not recommended for neonates born to HBV-infected or suspected HBV-infected mothers. Edgard Guajardo MD LAB - SEROLOGY ORDERABLES Final Result Performing Organization Address City/[facility]/ZIP Co de Phone Number [facility] [address] [place] [address], [facility] [phone] * HEPATITIS SCREEN ACUTE (11/01/2024 11:23 PM CDT) Hepatitis A Virus Antibody IgM Non-react palma Non-reac tive 11/02/2024 1:05 AM CDT [facility] Hepatitis B Virus Surface Antigen Non-react palma Non-reac tive 11/02/2024 1:05 AM CDT [facility] Hepatitis B Core Virus Antibody IgM Non-react palma Non-reac tive 11/02/2024 1:05 AM CDT [facility] Hepatitis C Antibody Non-react palma Non-reac tive 11/02/2024 1:05 AM CDT [facility] Comment:Hepatitis C Antibody screen indicates no [...] LAB - CHEMISTRY ORDERABLES Kaitlynn l Result [facility] [address] [place] [address], [facility] [phone] * HEPATITIS B PANEL (11/01/2024 11:23 PM CDT) Pathologist [facility] Hepatitis B Surface Antibody Quantitative <3.0 <8.0 mIU/mL 11/02/2024 1:45 AM CDT [facility] Comment: Hepatitis B Surface Antibody Numeric Result Interpretation: Nonreactive: <8.0 mIU/mL Indeterminate: 8.0 - 12.0 mIU/mL Reactive: >12.0 mIU/mL Hepatitis B Virus Surface Antibody Non-react palma Non-react palma 11/02/2024 1:45 AM CDT [facility] Comment: < 8 mIU/mL Hepatitis B surface Antibody (HBsAb). Nonreactive for HBsAb - individual is considered not immune to Hepatitis B Virus infection. Hepatitis B Virus Surface Antigen Non-react palma Non-react palma 11/02/2024 1:45 AM CDT [facility] Hepatitis B Core Virus Antibody IgM Non-react palma Non-react palma 11/02/2024 1:45 AM CDT [facility] Blood BLOOD SPECIMEN / Unknown Venipuncture / Unknown 11/01/2024 11:23 PM CDT 11/01/2024 11:49 PM CDT Edgard Guajardo MD LAB - CHEMISTRY ORDERABLES Kaitlynn l Result Performing Organization Address [facility] Co de Phone Number [address] [address], [facility] [phone] * ACETAMINOPHEN LEVEL (11/01/2024 11:23 PM CDT) Acetaminophen <3.0 <3.0 ug/mL 11/02/2024 12:40 AM CDT [facility] Blood BLOOD SPECIMEN / Unknown Venipuncture / Unknown 11/01/2024 11:23 PM CDT 11/01/2024 11:52 PM CDT Narrative [facility] - 11/02/2024 12:40 AM CDT Acetaminophen Toxicity [...] may alter the peak level. Contact the [facility] at or reserved for healthcare professionals to assist you in evaluating potentially toxic acetaminophen levels. Edgard Guajardo MD LAB - CHEMISTRY ORDERABLES Kaitlynn l Result Performing Organization Address [facility]/ZIP Co de Phone Number [address] [address], [place] [phone] * MAGNESIUM BLOOD (11/01/2024 11:23 PM CDT) Magnesium 2.5 1.6 - 2.6 mg/dL 11/02/2024 12:43 AM T [facility] Blood BLOOD SPECIMEN / Unknown Venipuncture / Unknown 11/01/2024 11:23 PM CDT 11/01/2024 11:52 PM CDT Edgard Guajardo MD LAB - CHEMISTRY ORDERABLES Kaitlynn l Result [address] [address], [facility] [phone] * PHOSPHORUS BLOOD (11/01/2024 11:23 PM CDT) Pathologist [facility] Phosphorus 4.4 2.8 - 5.1 mg/dL 11/02/2024 12:43 AM T [facility] Blood BLOOD SPECIMEN / Unknown Venipuncture / Unknown 11/01/2024 11:23 PM CDT 11/01/2024 11:52 PM CDT Edgard Guajardo MD LAB - CHEMISTRY ORDERABLES Kaitlynn l Result Performing Organization Address City/[facility]/ZIP Co de Phone Number [address] [address], [facility] [phone] * (ABNORMAL) CBC W AUTO DIFFERENTIAL (11/01/2024 11:23 PM CDT) Pathologist [facility] WBC 14.0(H) 4.0 - 10.7 x10E9/L 11/02/2024 12:01 AM [facility] RBC Count 4.27(L) 4.30 - 5.80 x10E12/L 11/02/2024 12:01 AM [facility] Hemoglobin 12.6(L) 13.3 - 17.5 g/dL 11/02/2024 12:01 AM [facility] Hematocrit 36.3(L) 38.7 - 51.1 % 11/02/2024 12:01 AM [facility] MCV 85.0 80.0 - 98.0 fL 11/02/2024 12:01 AM [facility] MCH 29.5 26.7 - 33.6 pg 11/02/2024 12:01 AM [facility] MCHC 34.7 31.7 - 36.3 g/dL 11/02/2024 12:01 AM [facility] RDW-CV 13.8 11.3 - 14.8 % 11/02/2024 12:01 AM [facility] Platelet Count 124(L) 150 - 420 x10E9/L 11/02/2024 12:01 AM [facility] MPV 10.7 7.8 - 11.4 fL 11/02/2024 12:01 AM [facility] Neutrophil % 95.4(H) 41.0 - 74.0 % 11/02/2024 12:01 AM [facility] Lymphocyte % 2.2(L) 17.0 - 47.0 % 11/02/2024 12:01 AM [facility] Monocyte % 1.9(L) 3.0 - 11.0 % 11/02/2024 12:01 AM [facility] Eosinophil % 0.0 0.0 - 7.0 % 11/02/2024 12:01 AM [facility] Basophil % 0.1 0.0 - 1.6 % 11/02/2024 12:01 AM [facility] Immature Granulocytes % 0.4 0.0 - 1.0 % 11/02/2024 12:01 AM [facility] Neutrophil Absolute 13.30(H) 1.60 - 7.50 x10E9/L 11/02/2024 12:01 AM [facility] Lymphocyte Absolute 0.30(L) 1.00 - 4.40 x10E9/L 11/02/2024 12:01 AM [facility] Monocyte Absolute 0.27 0.15 - 1.00 x10E9/L 11/02/2024 12:01 AM [facility] Eosinophil Absolute 0.00 0.00 - 0.60 x10E9/L 11/02/2024 12:01 AM [facility] Basophil Absolute 0.02 0.00 - 0.13 x10E9/L 11/02/2024 12:01 AM [facility] NRBC 0.3(H) <=0.0 /100 WBC 11/02/2024 12:01 AM [facility] Blood BLOOD SPECIMEN / Unknown Venipuncture / Unknown 11/01/2024 11:23 PM CDT 11/01/2024 11:53 PM CDT us Edgard Guajardo MD LAB - HEMATOLOGY ORDERABLES Fin al Result [facility] [address] [place] [address], [facility] [phone] * (ABNORMAL) COMPREHENSIVE METABOLIC PANEL (11/01/2024 11:23 PM CDT) BUN 95(H) 7 - 26 mg/dL 11/02/2024 12:43 AM [facility] Creatinine 3.85(H) 0.71 - 1.16 mg/dL 11/02/2024 12:43 AM [facility] Sodium 136 136 - 145 mmol/L 11/02/2024 12:43 AM [facility] Potassium 3.0(L) 3.5 - 4.5 mmol/L 11/02/2024 12:43 AM [facility] Chloride 94(L) 98 - 107 mmol/L 11/02/2024 12:43 AM [facility] CO2 24 22 - 29 mmol/L 11/02/2024 12:43 AM [facility] Glucose 106(H) 70 - 99 mg/dL 11/02/2024 12:43 AM [facility] Calcium 6.5(L) 8.4 - 10.2 mg/dL 11/02/2024 12:43 AM [facility] Protein Total 5.2(L) 6.0 - 8.3 g/dL 11/02/2024 12:43 AM [facility] Albumin 2.8(L) 3.4 - 5.0 g/dL 11/02/2024 12:43 AM [facility] Bilirubin Total 1.6(H) 0.2 - 1.2 mg/dL 11/02/2024 12:43 AM [facility] Alkaline Phosphatase 115 40 - 150 U/L 11/02/2024 12:43 AM [facility] ALT 3,970(H) 5 - 55 U/L 11/02/2024 12:43 AM [facility] AST 3,174(H) 5 - 34 U/L 11/02/2024 12:43 AM [facility] Anion Gap 18(H) 6 - 16 11/02/2024 12:43 AM [facility] BUN/Creatinine Ratio 25(H) 7 - 23 11/02/2024 12:43 AM [facility] Osmolality Calculated 312(H) 275 - 295 mOsm/kg 11/02/2024 12:43 AM [facility] Albumin/Globulin Ratio 1.2 1.1 - 2.3 11/02/2024 12:43 AM [facility] eGFR by CKD-EPI 15(L) >=90 mL/min/1. 73 m2 11/02/2024 12:43 AM [facility] Comment:Estimated Glomerular Filtration Rate (eGFR) calculated using the CKD-EPI Creatinine Equation (2020), per the National Kidney Foundation and [place] [employer]ph[employer] recommendations. Blood BLOOD SPECIMEN / Unknown Venipuncture / Unknown 11/01/2024 11:23 PM CDT 11/01/2024 11:52 PM CDT us Edgard Guajardo MD LAB - CHEMISTRY ORDERABLES Kaitlynn perkins Result [facility] [address] [place] [phone], [facility] [phone] * (ABNORMAL) LACTIC ACID BLOOD (11/01/2024 11:23 PM CDT) Lactic Acid-Stat 2.8(H) <=2.0 mmol/L 11/02/2024 12:32 AM [facility] Blood BLOOD SPECIMEN / Unknown Venipuncture / Unknown 11/01/2024 11:23 PM CDT 11/01/2024 11:52 PM CDT us Edgard Guajardo MD LAB - CHEMISTRY ORDERABLES Kaitlynn maddie Result [facility] [address] [place] [address], [facility] [phone] documented in this encounter Visit Diagnoses Diagnosis Cardiogenic shock (HCC)- Primary Cardiogenic shock Hepatic trauma, initial encounter Leukocytosis, unspecified type Elevated troponin Other abnormal blood chemistry Cardiogenic shock (HCC) Cardiogenic shock Transaminitis Nonspecific elevation of levels of transaminase or lactic acid dehydrogenase (LDH) Urinary retention Retention of urine, unspecified KASEY (acute kidney injury) Acute kidney failure, unspecified Heart failure with reduced ejection fraction (HCC) Inguinal hernia of right side without obstruction or gangrene Insomnia, unspecified type Depression, unspecified depression type Hyponatremia Hyposmolality and/or hyponatremia CAD, multiple vessel Coronary atherosclerosis of unspecified type of vessel, beaver or graft Hypomagnesemia Disorders of magnesium metabolism Hypotension, unspecified hypotension type Hepatic trauma, initial encounter KASEY (acute kidney injury) Acute kidney failure, unspecified Other specified anemias Leukocytosis (leucocytosis) Leukocytosis, unspecified Urinary retention Retention of urine, unspecified Heart failure with reduced ejection fraction (HCC) Elevated troponin Other abnormal blood chemistry Transaminitis Nonspecific elevation of levels of transaminase or lactic acid dehydrogenase (LDH) Thrombocytopenia Thrombocytopenia, unspecified Hyponatremia Hyposmolality and/or hyponatremia Overflow diarrhea Diarrhea Depression Depressive disorder, not elsewhere classified Insomnia Insomnia, unspecified CAD, multiple vessel Coronary atherosclerosis of unspecified type of vessel, beaver or graft Hypotension Hypomagnesemia Disorders of magnesium metabolism Heart failure with reduced ejection fraction (HCC) Cardiogenic shock (HCC) Cardiogenic shock * Assessment & Plan Note - Hugo De La Cruz APRN-CNP - 11/19/2024 2:25 PM CDT Associated Problem(s): Cardiogenic shock (HCC) s/p (11/17/24) LHC & RHC w/ PCI [...] 2.5mg oxy PRN, 2mg IVP morphine PRN * Assessment & Plan Note - Hugo De La Cruz APRN-CNP - 11/19/2024 2:25 PM CDT Associated Problem(s): Elevated troponin s/p (11/17/24) LHC & RHC w/ PCI [...] 2.5mg oxy PRN, 2mg IVP morphine PRN * Assessment & Plan Note - Hugo De La Cruz APRN-CNP - 11/19/2024 2:25 PM CDT Associated Problem(s): Heart failure with reduced ejection fraction (HCC) s/p (11/17/24) LHC & RHC w/ PCI [...] 2.5mg oxy PRN, 2mg IVP morphine PRN * Assessment & Plan Note - Hugo De La Cruz APRN-CNP - 11/19/2024 2:25 PM CDT Associated Problem(s): CAD, multiple vessel s/p (11/17/24) LHC & RHC w/ PCI [...] 2.5mg oxy PRN, 2mg IVP morphine PRN * Assessment & Plan Note - Hugo De La Cruz APRN-CNP - 11/19/2024 2:25 PM CDT Associated Problem(s): Hypotension s/p (11/17/24) LHC & RHC w/ PCI [...] 2.5mg oxy PRN, 2mg IVP morphine PRN * Assessment & Plan Note - Hugo De La Cruz APRN-CNP - 11/19/2024 2:25 PM CDT Associated Problem(s): Hyponatremia Mild improvement w fluid restriction. Usom>480 Yaneth>95. [...] mag ox 400mg po daily at dc * Assessment & Plan Note - Hugo De La Cruz APRN-CNP - 11/19/2024 2:25 PM CDT Associated Problem(s): Hypomagnesemia Mild improvement w fluid restriction. Usom>480 Yaneth>95. [...] mag ox 400mg po daily at dc * Assessment & Plan Note - Hugo De La Cruz APRN-CNP - 11/19/2024 2:25 PM CDT Associated Problem(s): Hepatic trauma, initial encounter Ddx: shock liver vs acetaminophen toxicity vs autoimmune vs toxicity from supplements vs autoimmune Transaminases markedly elevated on admission but downtrending now Unclear baseline - no close PCP followup Ultrasound with no clear etiology for liver injury. No ascites. Trace fluid morrisons pouch. - MPO/PR3 autoantibodies negative - Liver-kidney microsomal antibody IgG negative - MEREDITH not detected - hrfis-[id number] elevated at 254, but likely a result of recent transfusions - ceruloplasmin normal - F-Actin antibody IgG normal - mitochondrial M2 antibody normal - hepatitis panel normal - Improving with downtrending LFTs 11/16/2024 PLAN: --dc'd all OTC supplements IP * Assessment & Plan Note - Hugo De La Cruz APRN-CNP - 11/19/2024 2:25 PM CDT Associated Problem(s): Transaminitis Ddx: shock liver vs acetaminophen toxicity vs autoimmune vs toxicity from supplements vs autoimmune Transaminases markedly elevated on admission but downtrending now Unclear baseline - no close PCP followup Ultrasound with no clear etiology for liver injury. No ascites. Trace fluid morrisons pouch. - MPO/PR3 autoantibodies negative - Liver-kidney microsomal antibody IgG negative - MEREDITH not detected - grpeh-1-jkbmelrdntl elevated at 254, but likely a result of recent transfusions - ceruloplasmin normal - F-Actin antibody IgG normal - mitochondrial M2 antibody normal - hepatitis panel normal - Improving with downtrending LFTs 11/16/2024 PLAN: --dc'd all OTC supplements IP * Assessment & Plan Note - Hugo De La Cruz APRN-CNP - 11/19/2024 12:43 PM CDT Associated Problem(s): Other specified anemias Iron panel consistent with chronic disease PLAN: --hgb stable, continue to monitor --monitored platelet counts - remained stable * Assessment & Plan Note - Hugo De La Cruz APRN-CNP - 11/19/2024 12:43 PM CDT Associated Problem(s): Thrombocytopenia Iron panel consistent with chronic disease PLAN: --hgb stable, continue to monitor --monitored platelet counts - remained stable * Assessment & Plan Note - uHgo De La Cruz APRN-CNP - 11/19/2024 12:43 PM CDT Associated Problem(s): Urinary retention Patient voiding without catheter. --bedside urinal --can restart external catheter PRN --cont tamsulosin 0.4mg daily * Assessment & Plan Note - Hugo De La Cruz APRN-CNP - 11/19/2024 12:43 PM CDT Associated Problem(s): Depression Voiced suicidal ideation on 11/09 but no plan, no homicidal ideation. No history of depression - current episode likely multifactorial: chronic life altering disease, loss of , loss of independence. Plan: --OP psychiatry referral (pt agreeable, ordered) * Assessment & Plan Note - Hugo De La Cruz APRN-CNP - 11/19/2024 12:43 PM CDT Associated Problem(s): Insomnia Melatonin & ambien 5mg are prescribed for sleep Nocturnal desaturation study completed on 11/14/2024. F/u OP w/ PCP, resulted with intermittent desaturations to high 80%s but patient reports he did not sleep well. > discussion w/ pt sounds more psychiatry-related / thinking overnight rather than structural, already planning for OP Psych referral as above, discussed counseling/talk therapy with patient and he is agreeable * Assessment & Plan Note - Hugo De La Cruz APRN-CNP - 11/18/2024 3:47 PM CDT Associated Problem(s): Cardiogenic shock (HCC) s/p (11/17/24) LHC & RHC w/ PCI [...] for hypotension & hyponatremia --f/u OP cardiology * Assessment & Plan Note - Hugo De La Cruz APRN-CNP - 11/18/2024 3:47 PM CDT Associated Problem(s): Elevated troponin s/p (11/17/24) [facility] w/ PCI to proximal mid RCA, mid [...] for hypotension & hyponatremia --f/u OP cardiology * Assessment & Plan Note - Hugo De La Cruz APRN-CNP - 11/18/2024 3:47 PM CDT Associated Problem(s): Heart failure with reduced ejection fraction (HCC) s/p (11/17/24) [facility] w/ PCI to proximal mid RCA, mid [...] for hypotension & hyponatremia --f/u OP cardiology * Assessment & Plan Note - Hugo De La Cruz APRN-CNP - 11/18/2024 3:47 PM CDT Associated Problem(s): CAD, multiple vessel s/p (11/17/24) LHC & RHC w/ PCI [...] for hypotension & hyponatremia --f/u OP cardiology * Assessment & Plan Note - Hugo De La Cruz APRN-CNP - 11/18/2024 3:47 PM CDT Associated Problem(s): Hypotension s/p (11/17/24) LHC & RHC w/ PCI [...] for hypotension & hyponatremia --f/u OP cardiology * Assessment & Plan Note - Hugo De La Cruz APRN-CNP - 11/18/2024 3:47 PM CDT Associated Problem(s): Hyponatremia Mild improvement w fluid restriction. Usom>480 Yaneth>95. TSH WNL. Working ddx: heart failure/ low effective arterial blood volume vs CKD vs adrenal insufficiency vs SIADH Hypotonic/hypovolemic. PLAN: --cont holding lasix 20mg po daily --decrease fluid restrict to 1600 mL --obtain AM Cortisol w/ AM labs (11/19) --obtain repeat urine lytes & osmo (11/18) --start 2g salt tabl x2 days (not half-way in s/o HFrEF) --NS bolus as above (11/18) * Assessment & Plan Note - Hugo De La Cruz APRN-CNP - 11/18/2024 3:47 PM CDT Associated Problem(s): Hepatic trauma, initial encounter Ddx: shock liver vs acetaminophen toxicity vs autoimmune vs toxicity from supplements vs autoimmune Transaminases markedly elevated on admission but downtrending now Unclear baseline - no close PCP followup Ultrasound with no clear etiology for liver injury. No ascites. Trace fluid morrisons pouch. - MPO/PR3 autoantibodies negative - Liver-kidney microsomal antibody IgG negative - MEREDITH not detected - [id number]-3-uldctwyckpi elevated at 254, but likely a result of recent transfusions - ceruloplasmin normal - F-Actin antibody IgG normal - mitochondrial M2 antibody normal - hepatitis panel normal - Improving with downtrending LFTs 11/16/2024 PLAN: --dc'd all OTC supplements IP --daily RFP * Assessment & Plan Note - Hugo De La Cruz APRN-CNP - 11/18/2024 3:47 PM CDT Associated Problem(s): Transaminitis Ddx: shock liver vs acetaminophen toxicity vs autoimmune vs toxicity from supplements vs autoimmune Transaminases markedly elevated on admission but downtrending now Unclear baseline - no close PCP followup Ultrasound with no clear etiology for liver injury. No ascites. Trace fluid morrisons pouch. - MPO/PR3 autoantibodies negative - Liver-kidney microsomal antibody IgG negative - MEREDITH not detected - ymfxt-0-ierdfgcsevi elevated at 254, but likely a result of recent transfusions - ceruloplasmin normal - F-Actin antibody IgG normal - mitochondrial M2 antibody normal - hepatitis panel normal - Improving with downtrending LFTs 11/16/2024 PLAN: --dc'd all OTC supplements IP --daily RFP * Assessment & Plan Note - Hugo De La Cruz APRN-CNP - 11/18/2024 3:47 PM CDT Associated Problem(s): Other specified anemias Iron panel consistent with chronic disease PLAN: --hgb stable, continue to monitor --monitored platelet counts - remained stable * Assessment & Plan Note - Hugo De La Cruz APRN-CNP - 11/18/2024 3:47 PM CDT Associated Problem(s): Thrombocytopenia Iron panel consistent with chronic disease PLAN: --hgb stable, continue to monitor --monitored platelet counts - remained stable * Assessment & Plan Note - Hugo De La Cruz APRN-CNP - 11/18/2024 3:47 PM CDT Associated Problem(s): Urinary retention Patient voiding without catheter. --bedside urinal --can restart external catheter PRN --cont tamsulosin 0.4mg daily * Assessment & Plan Note - Hugo De La Cruz APRN-CNP - 11/18/2024 3:47 PM CDT Associated Problem(s): Depression Voiced suicidal ideation on 11/09 but no plan, no homicidal ideation. No history of depression - current episode likely multifactorial: chronic life altering disease, loss of , loss of independence. Plan: --OP psychiatry referral (pt agreeable, ordered) * Assessment & Plan Note - Hugo De La Cruz APRN-CNP - 11/18/2024 3:47 PM CDT Associated Problem(s): Insomnia Melatonin & ambien 5mg are prescribed for sleep Nocturnal desaturation study completed on 11/14/2024. F/u OP w/ PCP, resulted with intermittent desaturations to high 80%s but patient reports he did not sleep well. > discussion w/ pt sounds more psychiatry-related / thinking overnight rather than structural, already planning for OP Psych referral as above, discussed counseling/talk therapy with patient and he is agreeable * Assessment & Plan Note - Hugo De La Cruz APRN-CNP - 11/18/2024 3:47 PM CDT Associated Problem(s): Hypomagnesemia --give 4g IV Mag (11/18, Mag level 1.5) --start mag ox 400mg po daily * Assessment & Plan Note - Hugo De La Cruz APRN-CNP - 11/17/2024 1:30 PM CDT Associated Problem(s): Cardiogenic shock (HCC) Managed per cardiology. PLAN: --cont lipitor 80mg, [...] 2.5mg oxy PRN, 2mg IVP morphine PRN * Assessment & Plan Note - Hugo De La Cruz APRN-CNP - 11/17/2024 1:30 PM CDT Associated Problem(s): Elevated troponin Managed per cardiology. PLAN: --cont lipitor 80mg, [...] 2.5mg oxy PRN, 2mg IVP morphine PRN * Assessment & Plan Note - Hugo De La Cruz APRN-CNP - 11/17/2024 1:30 PM CDT Associated Problem(s): Heart failure with reduced ejection fraction (HCC) Managed per cardiology. PLAN: --cont lipitor 80mg, [...] 2.5mg oxy PRN, 2mg IVP morphine PRN * Assessment & Plan Note - Hugo De La Cruz APRN-CNP - 11/17/2024 1:30 PM CDT Associated Problem(s): CAD, multiple vessel Managed per cardiology. PLAN: --cont lipitor 80mg, [...] 2.5mg oxy PRN, 2mg IVP morphine PRN * Assessment & Plan Note - uHgo De La Cruz APRN-CNP - 11/17/2024 1:30 PM CDT Associated Problem(s): Depression Voiced suicidal ideation on 11/09 but no plan, no homicidal ideation. No history of depression - current episode likely multifactorial: chronic life altering disease, loss of , loss of independence. Plan: --OP psychiatry referral (pt agreeable, ordered) * Assessment & Plan Note - Hugo De La Cruz APRN-CNP - 11/17/2024 1:30 PM CDT Associated Problem(s): Insomnia Melatonin is prescribed for sleep Ambien 5mg added Nocturnal desaturation study completed on 11/14/2024. F/u OP w/ PCP, resulted with intermittent desaturations to high 80%s but patient reports he did not sleep well. > discussion w/ pt sounds more psychiatry-related / thinking overnight rather than structural, already planning for OP Psych referral as above, discussed counseling/talk therapy with patient and he is agreeable * Assessment & Plan Note - Hugo De La Cruz APRN-CNP - 11/17/2024 1:03 PM CDT Associated Problem(s): Hyponatremia Chronic hyponatremia. Remains euvolemic, previously hypovolemic. Mild improvement w fluid restriction. Usom>480 Yaneth>95. TSH WNL. Working ddx: heart failure/ low effective arterial blood volume vs CKD vs adrenal insufficiency vs SIADH Hypotonic, euvolemic/hypovolemic. PLAN: --cont holding lasix --cont fluid restrict 1800 mL --consider ACTH/cortisol workup if no further improvement in Na+ with fluid restriction * Assessment & Plan Note - Hugo De La Cruz APRN-CNP - 11/17/2024 1:03 PM CDT Associated Problem(s): Hepatic trauma, initial encounter Ddx: shock liver vs acetaminophen toxicity vs autoimmune vs toxicity from supplements vs autoimmune Transaminases markedly elevated on admission but downtrending now Unclear baseline - no close PCP followup Ultrasound with no clear etiology for liver injury. No ascites. Trace fluid morrisons pouch. - MPO/PR3 autoantibodies negative - Liver-kidney microsomal antibody IgG negative - MEREDITH not detected - [id number]-8-[id number] elevated at 254, but likely a result of recent transfusions - ceruloplasmin normal - F-Actin antibody IgG normal - mitochondrial M2 antibody normal - hepatitis panel normal - Improving with downtrending LFTs 11/16/2024 PLAN: --dc'd all OTC supplements IP --daily RFP * Assessment & Plan Note - Hugo De La Cruz APRN-CNP - 11/17/2024 1:03 PM CDT Associated Problem(s): Transaminitis Ddx: shock liver vs acetaminophen toxicity vs autoimmune vs toxicity from supplements vs autoimmune Transaminases markedly elevated on admission but downtrending now Unclear baseline - no close PCP followup Ultrasound with no clear etiology for liver injury. No ascites. Trace fluid morrisons pouch. - MPO/PR3 autoantibodies negative - Liver-kidney microsomal antibody IgG negative - MEREDITH not detected - [id number]-9-jphxlicwyia elevated at 254, but likely a result of recent transfusions - ceruloplasmin normal - F-Actin antibody IgG normal - mitochondrial M2 antibody normal - hepatitis panel normal - Improving with downtrending LFTs 11/16/2024 PLAN: --dc'd all OTC supplements IP --daily RFP * Assessment & Plan Note - Hugo De La Cruz APRN-CNP - 11/17/2024 1:03 PM CDT Associated Problem(s): Other specified anemias Iron panel consistent with chronic disease PLAN: --hgb stable, continue to monitor --monitored platelet counts - remained stable * Assessment & Plan Note - Hugo De La Cruz APRN-CNP - 11/17/2024 1:03 PM CDT Associated Problem(s): Thrombocytopenia Iron panel consistent with chronic disease PLAN: --hgb stable, continue to monitor --monitored platelet counts - remained stable * Assessment & Plan Note - Hugo De La Cruz APRN-CNP - 11/17/2024 1:03 PM CDT Associated Problem(s): Urinary retention Patient voiding without catheter. --bedside urinal --can restart external catheter PRN --cont tamsulosin 0.4mg daily * Assessment & Plan Note - Francine Posada MD - 11/16/2024 3:51 PM CDT Associated Problem(s): Thrombocytopenia Iron panel consistent with chronic disease PLAN: --hgb stable, continue to monitor --monitor platelet counts closely - remains stable * Assessment & Plan Note - Francine Posada MD - 11/16/2024 3:51 PM CDT Associated Problem(s): Urinary retention Patient voiding without catheter. --bedside urinal --restart external catheter PRN --cont tamsulosin 0.4mg daily * Assessment & Plan Note - Francine Posada MD - 11/16/2024 3:51 PM CDT Associated Problem(s): Depression Voiced suicidal ideation on 11/09 but no plan, no homicidal ideation. No history of depression - current episode likely multifactorial: chronic life altering disease, loss of , loss of independence. Plan: --OP psychiatry referral (pt agreeable) * Assessment & Plan Note - Francine Posada MD - 11/16/2024 3:51 PM CDT Associated Problem(s): Insomnia Melatonin is prescribed for sleep Ambien 5mg added Nocturnal desaturation study was ordered on 11/14/2024. Result pending. * Assessment & Plan Note - Francine Posada MD - 11/16/2024 3:51 PM CDT Associated Problem(s): Cardiogenic shock (HCC) Managed per cardiology. PLAN: --cont lipitor 80mg, metoprolol succinate 25 mg, spironolactone 12.5 mg --cont holding lasix 40mg PO daily --hold entresto 24-26 BID and jardiance 10mg qday - awaiting cards/CTS recs --cont fluid restriction 1800mL, --MRI cardiac study resulted. - CTS with no surgical intervention. - Cardiology plan for cath in AM. NPO at midnight. * Assessment & Plan Note - Francine Posada MD - 11/16/2024 3:51 PM CDT Associated Problem(s): Elevated troponin Managed per cardiology. PLAN: --cont lipitor 80mg, metoprolol succinate 25 mg, spironolactone 12.5 mg --cont holding lasix 40mg PO daily --hold entresto 24-26 BID and jardiance 10mg qday - awaiting cards/CTS recs --cont fluid restriction 1800mL, --MRI cardiac study resulted. - CTS with no surgical intervention. - Cardiology plan for cath in AM. NPO at midnight. * Assessment & Plan Note - Francine Posada MD - 11/16/2024 3:51 PM CDT Associated Problem(s): Heart failure with reduced ejection fraction (HCC) Managed per cardiology. PLAN: --cont lipitor 80mg, metoprolol succinate 25 mg, spironolactone 12.5 mg --cont holding lasix 40mg PO daily --hold entresto 24-26 BID and jardiance 10mg qday - awaiting cards/CTS recs --cont fluid restriction 1800mL, --MRI cardiac study resulted. - CTS with no surgical intervention. - Cardiology plan for cath in AM. NPO at midnight. * Assessment & Plan Note - Francine Posada MD - 11/16/2024 3:51 PM CDT Associated Problem(s): Hyponatremia Chronic hyponatremia. Remains euvolemic, previously hypovolemic. Mild improvement w fluid restriction. Usom>480 Yaneth>95. TSH WNL. Working ddx: heart failure/ low effective arterial blood volume vs CKD vs adrenal insufficiency vs SIADH Hypotonic, euvolemic/hypovolemic. PLAN: --cont holding lasix --cont fluid restrict 1800 mL --consider ACTH/cortisol workup if no further improvement in Na+ with fluid restriction * Assessment & Plan Note - Francine Posada MD - 11/16/2024 3:51 PM CDT Associated Problem(s): Hepatic trauma, initial encounter Ddx: shock liver vs acetaminophen toxicity vs autoimmune vs toxicity from supplements vs autoimmune Transaminases markedly elevated on admission but downtrending now Unclear baseline - no close PCP followup Ultrasound with no clear etiology for liver injury. No ascites. Trace fluid morrisons pouch. - MPO/PR3 autoantibodies negative - Liver-kidney microsomal antibody IgG negative - MEREDITH not detected - wcbeq-8-[id number] elevated at 254, but likely a result of recent transfusions - ceruloplasmin normal - F-Actin antibody IgG normal - mitochondrial M2 antibody normal - hepatitis panel normal - Improving with downtrending LFTs 11/16/2024 PLAN: --dc all OTC supplements IP --dc LFTs, INR, CBC --daily RFP * Assessment & Plan Note - Francine Posada MD - 11/16/2024 3:51 PM CDT Associated Problem(s): Transaminitis Ddx: shock liver vs acetaminophen toxicity vs autoimmune vs toxicity from supplements vs autoimmune Transaminases markedly elevated on admission but downtrending now Unclear baseline - no close PCP followup Ultrasound with no clear etiology for liver injury. No ascites. Trace fluid morrisons pouch. - MPO/PR3 autoantibodies negative - Liver-kidney microsomal antibody IgG negative - MEREDITH not detected - qiiys-[id number] elevated at 254, but likely a result of recent transfusions - ceruloplasmin normal - F-Actin antibody IgG normal - mitochondrial M2 antibody normal - hepatitis panel normal - Improving with downtrending LFTs 11/16/2024 PLAN: --dc all OTC supplements IP --dc LFTs, INR, CBC --daily RFP * Assessment & Plan Note - Francine Posada MD - 11/16/2024 3:51 PM CDT Associated Problem(s): Other specified anemias Iron panel consistent with chronic disease PLAN: --hgb stable, continue to monitor --monitor platelet counts closely - remains stable * Assessment & Plan Note - Kait Betancourt MD - 11/15/2024 2:57 PM CDT Associated Problem(s): Cardiogenic shock (HCC) Managed per cardiology. PLAN: --cont lipitor 80mg, metoprolol succinate 25 mg, spironolactone 12.5 mg --cont holding lasix 40mg PO daily --hold entresto 24-26 BID and jardiance 10mg qday - awaiting cards/CTS recs --cont fluid restriction 1800mL, --Pending report for MRI cardiac study. Cardiology consultation once report is available. * Assessment & Plan Note - Kait Betancourt MD - 11/15/2024 2:57 PM CDT Associated Problem(s): Elevated troponin Managed per cardiology. PLAN: --cont lipitor 80mg, metoprolol succinate 25 mg, spironolactone 12.5 mg --cont holding lasix 40mg PO daily --hold entresto 24-26 BID and jardiance 10mg qday - awaiting cards/CTS recs --cont fluid restriction 1800mL, --Pending report for MRI cardiac study. Cardiology consultation once report is available. * Assessment & Plan Note - Kait Betancourt MD - 11/15/2024 2:57 PM CDT Associated Problem(s): Heart failure with reduced ejection fraction (HCC) Managed per cardiology. PLAN: --cont lipitor 80mg, metoprolol succinate 25 mg, spironolactone 12.5 mg --cont holding lasix 40mg PO daily --hold entresto 24-26 BID and jardiance 10mg qday - awaiting cards/CTS recs --cont fluid restriction 1800mL, --Pending report for MRI cardiac study. Cardiology consultation once report is available. * Assessment & Plan Note - Kait Betancourt MD - 11/15/2024 2:57 PM CDT Associated Problem(s): Insomnia Melatonin is prescribed for sleep Ambien 5mg added Nocturnal desaturation study was ordered on 11/14/2024. Result pending. * Assessment & Plan Note - Kait Betancourt MD - 11/15/2024 2:27 PM CDT Associated Problem(s): Hyponatremia Chronic hyponatremia. Remains euvolemic, previously hypovolemic. Mild improvement w fluid restriction. Usom>480 Yaneth>95. TSH WNL. Working ddx: heart failure/ low effective arterial blood volume vs CKD vs adrenal insufficiency vs SIADH Hypotonic, euvolemic/hypovolemic. PLAN: --cont holding lasix --cont fluid restrict 1800 mL --consider ACTH/cortisol workup if no further improvement in Na+ with fluid restriction * Assessment & Plan Note - Kait Betancourt MD - 11/15/2024 2:27 PM CDT Associated Problem(s): Hepatic trauma, initial encounter Ddx: shock liver vs acetaminophen toxicity vs autoimmune vs toxicity from supplements vs autoimmune Transaminases markedly elevated on admission but downtrending now Unclear baseline - no close PCP followup Ultrasound with no clear etiology for liver injury. No ascites. Trace fluid morrisons pouch. - MPO/PR3 autoantibodies negative - Liver-kidney microsomal antibody IgG negative - MEREDITH not detected - [id number]-[id number] elevated at 254, but likely a result of recent transfusions - ceruloplasmin normal - F-Actin antibody IgG normal - mitochondrial M2 antibody normal - hepatitis panel normal PLAN: --dc all OTC supplements IP --daily CBC, CMP, INR * Assessment & Plan Note - Kait Betancourt MD - 11/15/2024 2:27 PM CDT Associated Problem(s): Transaminitis Ddx: shock liver vs acetaminophen toxicity vs autoimmune vs toxicity from supplements vs autoimmune Transaminases markedly elevated on admission but downtrending now Unclear baseline - no close PCP followup Ultrasound with no clear etiology for liver injury. No ascites. Trace fluid morrisons pouch. - MPO/PR3 autoantibodies negative - Liver-kidney microsomal antibody IgG negative - MEREDITH not detected - axunm-2-jylezlaojpt elevated at 254, but likely a result of recent transfusions - ceruloplasmin normal - F-Actin antibody IgG normal - mitochondrial M2 antibody normal - hepatitis panel normal PLAN: --dc all OTC supplements IP --daily CBC, CMP, INR * Assessment & Plan Note - Kait Betancourt MD - 11/15/2024 2:27 PM CDT Associated Problem(s): Other specified anemias Iron panel consistent with chronic disease PLAN: --hgb stable, continue to monitor --monitor platelet counts closely - remains stable * Assessment & Plan Note - Kait Betancourt MD - 11/15/2024 2:27 PM CDT Associated Problem(s): Thrombocytopenia Iron panel consistent with chronic disease PLAN: --hgb stable, continue to monitor --monitor platelet counts closely - remains stable * Assessment & Plan Note - Kait Betancourt MD - 11/15/2024 2:27 PM CDT Associated Problem(s): Urinary retention Patient voiding without catheter. --bedside urinal --restart external catheter PRN --cont tamsulosin 0.4mg daily * Assessment & Plan Note - Kait Betancourt MD - 11/15/2024 2:27 PM CDT Associated Problem(s): Overflow diarrhea (Resolved 11/15/2024) [employer] images from CT chest show large stool burden despite multiple loose BM's per day PLAN: --cont bowel regimen: senna, miralax * Assessment & Plan Note - Kait Betancourt MD - 11/15/2024 2:27 PM CDT Associated Problem(s): Depression Voiced suicidal ideation on 11/09 but no plan, no homicidal ideation. No history of depression - current episode likely multifactorial: chronic life altering disease, loss of , loss of independence. Plan: --OP psychiatry referral (pt agreeable) * Assessment & Plan Note - Kait Betancourt MD - 11/14/2024 4:23 PM CDT Associated Problem(s): Thrombocytopenia Iron panel consistent with chronic disease PLAN: --hgb stable, continue to monitor --monitor platelet counts closely - remains stable * Assessment & Plan Note - Kait Betancourt MD - 11/14/2024 4:23 PM CDT Associated Problem(s): Urinary retention Patient voiding without catheter. --bedside urinal --restart external catheter PRN --cont tamsulosin 0.4mg daily * Assessment & Plan Note - Kait Betancourt MD - 11/14/2024 4:23 PM CDT Associated Problem(s): Overflow diarrhea (Resolved 11/15/2024) [employer] images from CT chest show large stool burden despite multiple loose BM's per day PLAN: --cont bowel regimen: senna, miralax * Assessment & Plan Note - Kait Betancourt MD - 11/14/2024 4:23 PM CDT Associated Problem(s): Depression Voiced suicidal ideation on 11/09 but no plan, no homicidal ideation. No history of depression - current episode likely multifactorial: chronic life altering disease, loss of , loss of independence. Plan: --OP psychiatry referral (pt agreeable) * Assessment & Plan Note - Kait Betancourt MD - 11/14/2024 4:23 PM CDT Associated Problem(s): Insomnia Melatonin is prescribed for sleep * Assessment & Plan Note - Kait Betancourt MD - 11/14/2024 4:23 PM CDT Associated Problem(s): Cardiogenic shock (HCC) Managed per cardiology. PLAN: --cont lipitor 80mg, metoprolol succinate 25 mg, spironolactone 12.5 mg --cont holding lasix 40mg PO daily --hold entresto 24-26 BID and jardiance 10mg qday - awaiting cards/CTS recs --cont fluid restriction 1800mL, --Pending MRI cardiac study. * Assessment & Plan Note - Kait Betancourt MD - 11/14/2024 4:23 PM CDT Associated Problem(s): Elevated troponin Managed per cardiology. PLAN: --cont lipitor 80mg, metoprolol succinate 25 mg, spironolactone 12.5 mg --cont holding lasix 40mg PO daily --hold entresto 24-26 BID and jardiance 10mg qday - awaiting cards/CTS recs --cont fluid restriction 1800mL, --Pending MRI cardiac study. * Assessment & Plan Note - Kait Betancourt MD - 11/14/2024 4:23 PM CDT Associated Problem(s): Heart failure with reduced ejection fraction (HCC) Managed per cardiology. PLAN: --cont lipitor 80mg, metoprolol succinate 25 mg, spironolactone 12.5 mg --cont holding lasix 40mg PO daily --hold entresto 24-26 BID and jardiance 10mg qday - awaiting cards/CTS recs --cont fluid restriction 1800mL, --Pending MRI cardiac study. * Assessment & Plan Note - Kait Betancourt MD - 11/14/2024 4:23 PM CDT Associated Problem(s): Hyponatremia Chronic hyponatremia. Remains euvolemic, previously hypovolemic. Mild improvement w fluid restriction. Usom>480 Yaneth>95. TSH WNL. Working ddx: heart failure/ low effective arterial blood volume vs CKD vs adrenal insufficiency vs SIADH Hypotonic, euvolemic/hypovolemic. PLAN: --cont holding lasix --cont fluid restrict 1800 mL --consider ACTH/cortisol workup if no further improvement in Na+ with fluid restriction * Assessment & Plan Note - Kait Betancourt MD - 11/14/2024 4:23 PM CDT Associated Problem(s): Hepatic trauma, initial encounter Ddx: shock liver vs acetaminophen toxicity vs autoimmune vs toxicity from supplements vs autoimmune Transaminases markedly elevated on admission but downtrending now Unclear baseline - no close PCP followup Ultrasound with no clear etiology for liver injury. No ascites. Trace fluid morrisons pouch. - MPO/PR3 autoantibodies negative - Liver-kidney microsomal antibody IgG negative - MEREDITH not detected - [id number]-2-ihutmqjhcqc elevated at 254, but likely a result of recent transfusions - ceruloplasmin normal - F-Actin antibody IgG normal - mitochondrial M2 antibody normal - hepatitis panel normal PLAN: --dc all OTC supplements IP --daily CBC, CMP, INR * Assessment & Plan Note - Kait Betancourt MD - 11/14/2024 4:23 PM CDT Associated Problem(s): Transaminitis Ddx: shock liver vs acetaminophen toxicity vs autoimmune vs toxicity from supplements vs autoimmune Transaminases markedly elevated on admission but downtrending now Unclear baseline - no close PCP followup Ultrasound with no clear etiology for liver injury. No ascites. Trace fluid morrisons pouch. - MPO/PR3 autoantibodies negative - Liver-kidney microsomal antibody IgG negative - MEREDITH not detected - [id number]-[id number] elevated at 254, but likely a result of recent transfusions - ceruloplasmin normal - F-Actin antibody IgG normal - mitochondrial M2 antibody normal - hepatitis panel normal PLAN: --dc all OTC supplements IP --daily CBC, CMP, INR * Assessment & Plan Note - Kait Betancourt MD - 11/14/2024 4:23 PM CDT Associated Problem(s): Other specified anemias Iron panel consistent with chronic disease PLAN: --hgb stable, continue to monitor --monitor platelet counts closely - remains stable * Assessment & Plan Note - Kait Betancourt MD - 11/13/2024 7:45 PM CDT Associated Problem(s): Cardiogenic shock (HCC) Managed per cardiology. PLAN: --cont lipitor 80mg, metoprolol succinate 25 mg, spironolactone 12.5 mg --cont holding lasix 40mg PO daily --hold entresto 24-26 BID and jardiance 10mg qday - awaiting cards/CTS recs --cont fluid restriction 1800mL, --pending MRI cardiac study * Assessment & Plan Note - Kait Betancourt MD - 11/13/2024 7:45 PM CDT Associated Problem(s): Elevated troponin Managed per cardiology. PLAN: --cont lipitor 80mg, metoprolol succinate 25 mg, spironolactone 12.5 mg --cont holding lasix 40mg PO daily --hold entresto 24-26 BID and jardiance 10mg qday - awaiting cards/CTS recs --cont fluid restriction 1800mL, --pending MRI cardiac study * Assessment & Plan Note - Kait Betancourt MD - 11/13/2024 7:45 PM CDT Associated Problem(s): Heart failure with reduced ejection fraction (HCC) Managed per cardiology. PLAN: --cont lipitor 80mg, metoprolol succinate 25 mg, spironolactone 12.5 mg --cont holding lasix 40mg PO daily --hold entresto 24-26 BID and jardiance 10mg qday - awaiting cards/CTS recs --cont fluid restriction 1800mL, --pending MRI cardiac study * Assessment & Plan Note - Kait Betancourt MD - 11/13/2024 7:45 PM CDT Associated Problem(s): Hyponatremia Chronic hyponatremia. Remains euvolemic, previously hypovolemic. Mild improvement w fluid restriction. Usom>480 Yaneth>95. TSH WNL. Working ddx: heart failure/ low effective arterial blood volume vs CKD vs adrenal insufficiency vs SIADH Hypotonic, euvolemic/hypovolemic. PLAN: --cont holding lasix --cont fluid restrict 1800 mL --consider ACTH/cortisol workup if no further improvement in Na+ with fluid restriction * Assessment & Plan Note - Kait Betancourt MD - 11/13/2024 7:45 PM CDT Associated Problem(s): Hepatic trauma, initial encounter Ddx: shock liver vs acetaminophen toxicity vs autoimmune vs toxicity from supplements vs autoimmune Transaminases markedly elevated on admission but downtrending now Unclear baseline - no close PCP followup Ultrasound with no clear etiology for liver injury. No ascites. Trace fluid morrisons pouch. - MPO/PR3 autoantibodies negative - Liver-kidney microsomal antibody IgG negative - MEREDITH not detected - [id number]-[id number] elevated at 254, but likely a result of recent transfusions - ceruloplasmin normal - F-Actin antibody IgG normal - mitochondrial M2 antibody normal - hepatitis panel normal PLAN: --dc all OTC supplements IP --daily CBC, CMP, INR * Assessment & Plan Note - Kait Betancourt MD - 11/13/2024 7:45 PM CDT Associated Problem(s): Transaminitis Ddx: shock liver vs acetaminophen toxicity vs autoimmune vs toxicity from supplements vs autoimmune Transaminases markedly elevated on admission but downtrending now Unclear baseline - no close PCP followup Ultrasound with no clear etiology for liver injury. No ascites. Trace fluid morrisons pouch. - MPO/PR3 autoantibodies negative - Liver-kidney microsomal antibody IgG negative - MEREDITH not detected - [id number] elevated at 254, but likely a result of recent transfusions - ceruloplasmin normal - F-Actin antibody IgG normal - mitochondrial M2 antibody normal - hepatitis panel normal PLAN: --dc all OTC supplements IP --daily CBC, CMP, INR * Assessment & Plan Note - Kait Betancourt MD - 11/13/2024 7:45 PM CDT Associated Problem(s): Other specified anemias Iron panel consistent with chronic disease PLAN: --hgb stable, continue to monitor --monitor platelet counts closely - remains stable * Assessment & Plan Note - Kait Betancourt MD - 11/13/2024 7:45 PM CDT Associated Problem(s): Thrombocytopenia Iron panel consistent with chronic disease PLAN: --hgb stable, continue to monitor --monitor platelet counts closely - remains stable * Assessment & Plan Note - Kait Betancourt MD - 11/13/2024 7:45 PM CDT Associated Problem(s): Urinary retention Patient voiding without catheter. --bedside urinal --restart external catheter PRN --cont tamsulosin 0.4mg daily * Assessment & Plan Note - Kait Betancourt MD - 11/13/2024 7:45 PM CDT Associated Problem(s): Overflow diarrhea (Resolved 11/15/2024) [employer] images from CT chest show large stool burden despite multiple loose BM's per day PLAN: --cont bowel regimen: senna, miralax * Assessment & Plan Note - Kait Betancourt MD - 11/13/2024 7:45 PM CDT Associated Problem(s): Depression Voiced suicidal ideation on 11/09 but no plan, no homicidal ideation. No history of depression - current episode likely multifactorial: chronic life altering disease, loss of , loss of independence. Plan: --OP psychiatry referral (pt agreeable) * Assessment & Plan Note - Mariangel Mario MD - 11/12/2024 4:38 PM CDTAssociated Problem(s): Elevated troponin Managed per cardiology. PLAN: --cont lipitor 80mg, metoprolol succinate 25 mg, spironolactone 12.5 mg --cont holding lasix 40mg PO daily --hold entresto 24-26 BID and jardiance 10mg qday - awaiting cards/CTS recs --cont fluid restriction 1800mL, --pending MRI cardiac study * Assessment & Plan Note - Mariangel Mario MD - 11/12/2024 4:38 PM CDTAssociated Problem(s): Heart failure with reduced ejection fraction (HCC) Managed per cardiology. PLAN: --cont lipitor 80mg, metoprolol succinate 25 mg, spironolactone 12.5 mg --cont holding lasix 40mg PO daily --hold entresto 24-26 BID and jardiance 10mg qday - awaiting cards/CTS recs --cont fluid restriction 1800mL, --pending MRI cardiac study * Assessment & Plan Note - Mariangel Mario MD - 11/12/2024 4:38 PM CDTAssociated Problem(s): Hepatic trauma, initial encounter Ddx: shock liver vs acetaminophen toxicity vs autoimmune vs toxicity from supplements vs autoimmune Transaminases markedly elevated on admission but downtrending now Unclear baseline - no close PCP followup Ultrasound with no clear etiology for liver injury. No ascites. Trace fluid morrisons pouch. - MPO/PR3 autoantibodies negative - Liver-kidney microsomal antibody IgG negative - MEREDITH not detected - vzcsi-7-[id number] elevated at 254, but likely a result of recent transfusions - ceruloplasmin normal - F-Actin antibody IgG normal - mitochondrial M2 antibody normal - hepatitis panel normal PLAN: --dc all OTC supplements IP --daily CBC, CMP, INR * Assessment & Plan Note - Mariangel Mario MD - 11/12/2024 4:38 PM CDTAssociated Problem(s): Transaminitis Ddx: shock liver vs acetaminophen toxicity vs autoimmune vs toxicity from supplements vs autoimmune Transaminases markedly elevated on admission but downtrending now Unclear baseline - no close PCP followup Ultrasound with no clear etiology for liver injury. No ascites. Trace fluid morrisons pouch. - MPO/PR3 autoantibodies negative - Liver-kidney microsomal antibody IgG negative - MEREDITH not detected - [id number]-[id number] elevated at 254, but likely a result of recent transfusions - ceruloplasmin normal - F-Actin antibody IgG normal - mitochondrial M2 antibody normal - hepatitis panel normal PLAN: --dc all OTC supplements IP --daily CBC, CMP, INR * Assessment & Plan Note - Mariangel Mario MD - 11/12/2024 4:38 PM CDTAssociated Problem(s): Other specified anemias Iron panel consistent with chronic disease PLAN: --hgb stable, continue to monitor --monitor platelet counts closely - remains stable * Assessment & Plan Note - Mariangel Mario MD - 11/12/2024 4:38 PM CDTAssociated Problem(s): Thrombocytopenia Iron panel consistent with chronic disease PLAN: --hgb stable, continue to monitor --monitor platelet counts closely - remains stable * Assessment & Plan Note - Mariangel Mario MD - 11/12/2024 4:38 PM CDTAssociated Problem(s): Urinary retention Patient voiding without catheter. --bedside urinal --restart external catheter PRN --cont tamsulosin 0.4mg daily * Assessment & Plan Note - Mariangel Mario MD - 11/12/2024 4:38 PM CDTAssociated Problem(s): Overflow diarrhea (Resolved 11/15/2024) [employer] images from CT chest show large stool burden despite multiple loose BM's per day PLAN: --cont bowel regimen: senna, miralax * Assessment & Plan Note - Mariangel Mario MD - 11/12/2024 4:38 PM CDTAssociated Problem(s): Depression Voiced suicidal ideation on 11/09 but no plan, no homicidal ideation. No history of depression - current episode likely multifactorial: chronic life altering disease, loss of , loss of independence. Plan: --OP psychiatry referral (pt agreeable) * Assessment & Plan Note - Mariangel Mario MD - 11/12/2024 4:38 PM CDTAssociated Problem(s): Hyponatremia Chronic hyponatremia. Remains euvolemic, previously hypovolemic. Mild improvement w fluid restriction. Usom>480 Yaneth>95. TSH WNL. Working ddx: heart failure/ low effective arterial blood volume vs CKD vs adrenal insufficiency vs SIADH Hypotonic, euvolemic/hypovolemic. PLAN: --cont holding lasix --cont fluid restrict 1800 mL --consider ACTH/cortisol workup if no further improvement in Na+ with fluid restriction * Assessment & Plan Note - Mariangel Mario MD - 11/12/2024 4:38 PM CDTAssociated Problem(s): Cardiogenic shock (HCC) Managed per cardiology. PLAN: --cont lipitor 80mg, metoprolol succinate 25 mg, spironolactone 12.5 mg --cont holding lasix 40mg PO daily --hold entresto 24-26 BID and jardiance 10mg qday - awaiting cards/CTS recs --cont fluid restriction 1800mL, --pending MRI cardiac study * Assessment & Plan Note - Jared Vasquez MD - 11/11/2024 12:04 PM CDT Associated Problem(s): Cardiogenic shock (HCC) Entresto 24-26 BID - holding Jardiance 10 mg Qdaily - not started yet, waiting on CTS recs Metoprolol succinate 25 mg qdaily Spironolactone 12.5 mg Lasix 40 PO daily - held today Fluid restrict 1800 mL Cardiac MRI ordered Started lipitor 80 mg * Assessment & Plan Note - Jared Vasquez MD - 11/11/2024 12:04 PM CDT Associated Problem(s): Elevated troponin Entresto 24-26 BID - holding Jardiance 10 mg Qdaily - not started yet, waiting on CTS recs Metoprolol succinate 25 mg qdaily Spironolactone 12.5 mg Lasix 40 PO daily - held today Fluid restrict 1800 mL Cardiac MRI ordered Started lipitor 80 mg * Assessment & Plan Note - Jared Vasquez MD - 11/11/2024 12:04 PM CDT Associated Problem(s): Heart failure with reduced ejection fraction (HCC) Entresto 24-26 BID - holding Jardiance 10 mg Qdaily - not started yet, waiting on CTS recs Metoprolol succinate 25 mg qdaily Spironolactone 12.5 mg Lasix 40 PO daily - held today Fluid restrict 1800 mL Cardiac MRI ordered Started lipitor 80 mg * Assessment & Plan Note - Jared Vasquez MD - 11/11/2024 10:25 AM CDT Associated Problem(s): Hepatic trauma, initial encounter Ddx: shock liver vs acetaminophen toxicity vs autoimmune vs toxicity from supplements vs autoimmune Transaminases markedly elevated on admission but downtrending now Unclear baseline - no close PCP followup Ultrasound with no clear etiology for liver injury. No ascites. Trace fluid morrisons pouch. - MPO/PR3 autoantibodies negative - Liver-kidney microsomal antibody IgG negative - MEREDITH not detected - jjuxf-[id number] elevated at 254, but likely a result of recent transfusions - ceruloplasmin normal - F-Actin antibody IgG normal - mitochondrial M2 antibody normal - hepatitis panel normal PLAN: - Dc all OTC supplements - Daily CBC, CMP, INR * Assessment & Plan Note - Jared Vasquez MD - 11/11/2024 10:25 AM CDT Associated Problem(s): Transaminitis Ddx: shock liver vs acetaminophen toxicity vs autoimmune vs toxicity from supplements vs autoimmune Transaminases markedly elevated on admission but downtrending now Unclear baseline - no close PCP followup Ultrasound with no clear etiology for liver injury. No ascites. Trace fluid morrisons pouch. - MPO/PR3 autoantibodies negative - Liver-kidney microsomal antibody IgG negative - MEREDITH not detected - pbqpi-7-[id number] elevated at 254, but likely a result of recent transfusions - ceruloplasmin normal - F-Actin antibody IgG normal - mitochondrial M2 antibody normal - hepatitis panel normal PLAN: - Dc all OTC supplements - Daily CBC, CMP, INR * Assessment & Plan Note - Jared Vasquez MD - 11/11/2024 10:25 AM CDT Associated Problem(s): Hyponatremia Ddx: heart failure/ low effective arterial blood volume vs CKD vs adrenal insufficiency vs SIADH Hypotonic, euvolemic/hypovolemic - hold lasix - fluid restrict 1800 mL * Assessment & Plan Note - Jared Vasquez MD - 11/11/2024 10:25 AM CDT Associated Problem(s): Depression No history of depression - current episode likely multifactorial: chronic life altering disease, loss of , loss of independence Voiced suicidal ideation on 11/09 but no plan, no homicidal ideation Plan: Patient is agreeable to an outpatient psychiatry referral * Assessment & Plan Note - Jared Vasquez MD - 11/11/2024 6:53 AM CDT Associated Problem(s): Other specified anemias Iron panel consistent with chronic disease - HgB stable, continue to monitor - monitor platelet counts closely. Stable today. * Assessment & Plan Note - Jared Vasquez MD - 11/11/2024 6:53 AM CDT Associated Problem(s): Thrombocytopenia Iron panel consistent with chronic disease - HgB stable, continue to monitor - monitor platelet counts closely. Stable today. * Assessment & Plan Note - Jared Vasquez MD - 11/11/2024 6:53 AM CDT Associated Problem(s): Urinary retention Patient voiding without catheter - provided bedside urinal - can restart external catheter if needed - tamsulosin 0.4mg daily * Assessment & Plan Note - Jared Vasquez MD - 11/11/2024 6:53 AM CDT Associated Problem(s): Overflow diarrhea (Resolved 11/15/2024) [employer] images from CT chest show large stool burden despite multiple loose BM's per day PLAN: - senna, miralax * Assessment & Plan Note - Jared Vasquez MD - 11/10/2024 3:08 PM CDT Associated Problem(s): Depression No history of depression - current episode likely multifactorial: chronic life altering disease, loss of , loss of independence Voiced suicidal ideation on 11/09 but no plan, no homicidal ideation Still with relatively flat affect on 11/10 but not suicidal, much more interactive Plan: Patient is agreeable to an outpatient psychiatry referral * Assessment & Plan Note - Jared Vasquez MD - 11/10/2024 9:29 AM CDT Associated Problem(s): Hyponatremia Ddx: heart failure/ low effective arterial blood volume vs CKD vs adrenal insufficiency vs SIADH Hypotonic, volume overload makes most likely etiology HF - fluid restrict 1800 mL * Assessment & Plan Note - Jared Vasquez MD - 11/10/2024 9:29 AM CDT Associated Problem(s): KASEY (acute kidney injury) (Resolved 11/10/2024) Cardiorenal vs hepatorenal syndrome 10/31 US with solid hypoechoic left renal mass and subcentimeter L renal cyst Per rads: CT urogram or abdominal MRI w contrast (will be ordered outpatient) Start cardiac diet - fluid restrict to 1800 mL Hold lasix today * Assessment & Plan Note - Jared Vasquez MD - 11/10/2024 9:29 AM CDT Associated Problem(s): Other specified anemias Iron panel consistent with chronic disease - HgB stable, continue to monitor - monitor platelet counts closely. Stable today. * Assessment & Plan Note - Jared Vasquez MD - 11/10/2024 9:29 AM CDT Associated Problem(s): Thrombocytopenia Iron panel consistent with chronic disease - HgB stable, continue to monitor - monitor platelet counts closely. Stable today. * Assessment & Plan Note - Jared Vasquez MD - 11/10/2024 9:29 AM CDT Associated Problem(s): Urinary retention Patient voiding without catheter - provided bedside urinal - can restart external catheter if needed - tamsulosin 0.4mg daily * Assessment & Plan Note - Jared Vasquez MD - 11/10/2024 9:29 AM CDT Associated Problem(s): Overflow diarrhea (Resolved 11/15/2024) [employer] images from CT chest show large stool burden despite multiple loose BM's per day PLAN: - senna, miralax * Assessment & Plan Note - Jared Vasquez MD - 11/10/2024 9:29 AM CDT Associated Problem(s): Cardiogenic shock (HCC) Entresto 24-26 BID - holding Jardiance 10 mg Qdaily - not started yet, waiting on CTS recs Metoprolol succinate 25 mg qdaily Spironolactone 12.5 mg Lasix 40 PO daily - held today Telemetry Fluid restrict 1800 mL Cardiac MRI ordered today * Assessment & Plan Note - Jared Vasquez MD - 11/10/2024 9:29 AM CDT Associated Problem(s): Elevated troponin Entresto 24-26 BID - holding Jardiance 10 mg Qdaily - not started yet, waiting on CTS recs Metoprolol succinate 25 mg qdaily Spironolactone 12.5 mg Lasix 40 PO daily - held today Telemetry Fluid restrict 1800 mL Cardiac MRI ordered today * Assessment & Plan Note - Jared Vasquez MD - 11/10/2024 9:29 AM CDT Associated Problem(s): Heart failure with reduced ejection fraction (HCC) Entresto 24-26 BID - holding Jardiance 10 mg Qdaily - not started yet, waiting on CTS recs Metoprolol succinate 25 mg qdaily Spironolactone 12.5 mg Lasix 40 PO daily - held today Telemetry Fluid restrict 1800 mL Cardiac MRI ordered today * Assessment & Plan Note - Jared Vasquez MD - 11/10/2024 9:29 AM CDT Associated Problem(s): Hepatic trauma, initial encounter Ddx: shock liver vs acetaminophen toxicity vs autoimmune vs toxicity from supplements vs autoimmune Transaminases markedly elevated on admission but downtrending now Unclear baseline - no close PCP followup Ultrasound with no clear etiology for liver injury. No ascites. Trace fluid morrisons pouch. PLAN: AMA, MEREDITH, Antismooth muscle antibodies, ANCA panel, anti-LKM1 antibodies, IgG, serum [id number] - ceruloplasmin normal - F-Actin antibody IgG normal - mitochondrial M2 antibody normal - hepatitis panel normal - Dc all OTC supplements - Daily CBC, CMP, INR * Assessment & Plan Note - Jared Vasquez MD - 11/10/2024 9:29 AM CDT Associated Problem(s): Transaminitis Ddx: shock liver vs acetaminophen toxicity vs autoimmune vs toxicity from supplements vs autoimmune Transaminases markedly elevated on admission but downtrending now Unclear baseline - no close PCP followup Ultrasound with no clear etiology for liver injury. No ascites. Trace fluid morrisons pouch. PLAN: AMA, MEREDITH, Antismooth muscle antibodies, ANCA panel, anti-LKM1 antibodies, IgG, serum juzww-[id number] - ceruloplasmin normal - F-Actin antibody IgG normal - mitochondrial M2 antibody normal - hepatitis panel normal - Dc all OTC supplements - Daily CBC, CMP, INR * Assessment & Plan Note - Jared Vasquez MD - 11/09/2024 1:10 PM CDT Associated Problem(s): Cardiogenic shock (HCC) Entresto 24-26 BID - holding starting this afternoon until seen by CTS Jardiance 10 mg Qdaily - not started yet, waiting on CTS recs Metoprolol succinate 25 mg qdaily Spironolactone 12.5 mg Lasix 40 PO daily - held today Telemetry Fluid restrict 1800 mL Readdress cardiac MRI tomorrow * Assessment & Plan Note - Jared Vasquez MD - 11/09/2024 1:10 PM CDT Associated Problem(s): Elevated troponin Entresto 24-26 BID - holding starting this afternoon until seen by CTS Jardiance 10 mg Qdaily - not started yet, waiting on CTS recs Metoprolol succinate 25 mg qdaily Spironolactone 12.5 mg Lasix 40 PO daily - held today Telemetry Fluid restrict 1800 mL Readdress cardiac MRI tomorrow * Assessment & Plan Note - Jared Vasquez MD - 11/09/2024 1:10 PM CDT Associated Problem(s): Heart failure with reduced ejection fraction (HCC) Entresto 24-26 BID - holding starting this afternoon until seen by CTS Jardiance 10 mg Qdaily - not started yet, waiting on CTS recs Metoprolol succinate 25 mg qdaily Spironolactone 12.5 mg Lasix 40 PO daily - held today Telemetry Fluid restrict 1800 mL Readdress cardiac MRI tomorrow * Assessment & Plan Note - Jared Vasquez MD - 11/09/2024 1:10 PM CDT Associated Problem(s): Hyponatremia Ddx: heart failure/ low effective arterial blood volume exacerbated by spironolactone vs CKD vs adrenal insufficiency vs SIADH Hypotonic, volume overload makes most likely etiology HF - fluid restrict 1800 mL * Assessment & Plan Note - Jared Vasquez MD - 11/09/2024 11:59 AM CDT Associated Problem(s): KASEY (acute kidney injury) (Resolved 11/10/2024) Cardiorenal vs hepatorenal syndrome 10/31 US with solid hypoechoic left renal mass and subcentimeter L renal cyst Per rads: CT urogram or abdominal MRI w contrast (will be ordered outpatient) Start cardiac diet - fluid restrict to 1800 mL Hold lasix today * Assessment & Plan Note - Jared Vasquez MD - 11/09/2024 7:42 AM CDT Associated Problem(s): Hepatic trauma, initial encounter Ddx: shock liver vs acetaminophen toxicity vs [...] antibodies, ANCA panel, anti-LKM1 antibodies, IgG, serum [id number] - ceruloplasmin normal - F-Actin antibody IgG normal - mitochondrial M2 antibody normal - hepatitis panel normal - Dc all OTC supplements - Daily CBC, CMP, INR * Assessment & Plan Note - Jared Vasquez MD - 11/09/2024 7:42 AM CDT Associated Problem(s): Transaminitis Ddx: shock liver vs acetaminophen toxicity vs [...] antibodies, ANCA panel, anti-LKM1 antibodies, IgG, serum [id number] - ceruloplasmin normal - F-Actin antibody IgG normal - mitochondrial M2 antibody normal - hepatitis panel normal - Dc all OTC supplements - Daily CBC, CMP, INR * Assessment & Plan Note - Jared Vasquez MD - 11/09/2024 7:42 AM CDT Associated Problem(s): Other specified anemias Iron panel consistent with chronic disease - HgB stable, continue to monitor - monitor platelet counts closely. Stable today. * Assessment & Plan Note - Jared Vasquez MD - 11/09/2024 7:42 AM CDT Associated Problem(s): Thrombocytopenia Iron panel consistent with chronic disease - HgB stable, continue to monitor - monitor platelet counts closely. Stable today. * Assessment & Plan Note - Jared Vasquez MD - 11/09/2024 7:42 AM CDT Associated Problem(s): Urinary retention Patient voiding without catheter - provided bedside urinal - can restart external catheter if needed - tamsulosin 0.4mg daily * Assessment & Plan Note - Jared Vasquez MD - 11/08/2024 3:02 PM CDT Associated Problem(s): Cardiogenic shock (HCC) Entresto 24-26 BID - holding starting this afternoon until seen by CTS Jardiance 10 mg Qdaily - not started yet, waiting on CTS recs Metoprolol succinate 25 mg qdaily started yesterday Spironolactone 12.5 mg today, assess response Lasix 40 PO daily Telemetry Fluid restrict 1800 mL F/u CTS recommendations s/p cardiac cath -CT chest, carotid duplex, PFTs * Assessment & Plan Note - Jared Vasquez MD - 11/08/2024 3:02 PM CDT Associated Problem(s): Elevated troponin Entresto 24-26 BID - holding starting this afternoon until seen by CTS Jardiance 10 mg Qdaily - not started yet, waiting on CTS recs Metoprolol succinate 25 mg qdaily started yesterday Spironolactone 12.5 mg today, assess response Lasix 40 PO daily Telemetry Fluid restrict 1800 mL F/u CTS recommendations s/p cardiac cath -CT chest, carotid duplex, PFTs * Assessment & Plan Note - Jared Vasquez MD - 11/08/2024 3:02 PM CDT Associated Problem(s): Heart failure with reduced ejection fraction (HCC) Entresto 24-26 BID - holding starting this afternoon until seen by CTS Jardiance 10 mg Qdaily - not started yet, waiting on CTS recs Metoprolol succinate 25 mg qdaily started yesterday Spironolactone 12.5 mg today, assess response Lasix 40 PO daily Telemetry Fluid restrict 1800 mL F/u CTS recommendations s/p cardiac cath -CT chest, carotid duplex, PFTs * Assessment & Plan Note - Jared Vasquez MD - 11/08/2024 3:02 PM CDT Associated Problem(s): KASEY (acute kidney injury) (Resolved 11/10/2024) Cardiorenal vs hepatorenal syndrome 10/31 US with solid hypoechoic left renal mass and subcentimeter L renal cyst Per rads: CT urogram or abdominal MRI w contrast (will be ordered outpatient) Start cardiac diet - fluid restrict to 1800 mL Restart lasix * Assessment & Plan Note - Jared Vasquez MD - 11/08/2024 8:01 AM CDT Associated Problem(s): Urinary retention Patient voiding without catheter - provided bedside urinal - can restart external catheter if needed - tamsulosin 0.4mg daily * Assessment & Plan Note - Jared Vasquez MD - 11/08/2024 8:01 AM CDT Associated Problem(s): Hepatic trauma, initial encounter Ddx: shock liver vs acetaminophen toxicity vs [...] antibodies, ANCA panel, anti-LKM1 antibodies, IgG, serum [id number] - ceruloplasmin normal - F-Actin antibody IgG normal - mitochondrial M2 antibody normal - hepatitis panel normal - Dc all OTC supplements - Daily CBC, CMP, INR * Assessment & Plan Note - Jared Vasquez MD - 11/08/2024 8:01 AM CDT Associated Problem(s): Transaminitis Ddx: shock liver vs acetaminophen toxicity vs [...] antibodies, ANCA panel, anti-LKM1 antibodies, IgG, serum [id number] - ceruloplasmin normal - F-Actin antibody IgG normal - mitochondrial M2 antibody normal - hepatitis panel normal - Dc all OTC supplements - Daily CBC, CMP, INR * Assessment & Plan Note - Jared Vasquez MD - 11/08/2024 8:01 AM CDT Associated Problem(s): Other specified anemias Iron panel consistent with chronic disease - HgB stable, continue to monitor - monitor platelet counts closely. Stable today. * Assessment & Plan Note - Jarde Vasquez MD - 11/08/2024 8:01 AM CDT Associated Problem(s): Thrombocytopenia Iron panel consistent with chronic disease - HgB stable, continue to monitor - monitor platelet counts closely. Stable today. * Assessment & Plan Note - Jared Vasquez MD - 11/07/2024 1:11 PM CDT Associated Problem(s): Hepatic trauma, initial encounter Ddx: shock liver vs acetaminophen toxicity vs [...] antibodies, ANCA panel, anti-LKM1 antibodies, IgG, serum [id number] - ceruloplasmin normal - F-Actin antibody IgG normal - mitochondrial M2 antibody normal - hepatitis panel normal - Dc all OTC supplements - Daily CBC, CMP, INR * Assessment & Plan Note - Jared Vasquez MD - 11/07/2024 1:11 PM CDT Associated Problem(s): Transaminitis Ddx: shock liver vs acetaminophen toxicity vs [...] antibodies, ANCA panel, anti-LKM1 antibodies, IgG, serum [id number] - ceruloplasmin normal - F-Actin antibody IgG normal - mitochondrial M2 antibody normal - hepatitis panel normal - Dc all OTC supplements - Daily CBC, CMP, INR * Assessment & Plan Note - Jared Vasquez MD - 11/07/2024 1:11 PM CDT Associated Problem(s): Other specified anemias Iron panel consistent with chronic disease - HgB stable, continue to monitor - monitor platelet counts closely. Stable today. * Assessment & Plan Note - Jared Vasquez MD - 11/07/2024 1:11 PM CDT Associated Problem(s): Thrombocytopenia Iron panel consistent with chronic disease - HgB stable, continue to monitor - monitor platelet counts closely. Stable today. * Assessment & Plan Note - Jared Vasquez MD - 11/07/2024 1:05 PM CDT Associated Problem(s): Cardiogenic shock (HCC) Hydralazine 10mg TID dc Isosorbide dinitrate 10mg TID dc Entresto 24-26 BID - gave 1 dose 11/06, has not received yet today Jardiance 10 mg Qdaily - not started yet, waiting on CTS recs Metoprolol succinate 25 mg qdaily started yesterday Spironolactone held - will consider starting tomorrow Lasix resumed Telemetry F/u CTS recommendations s/p cardiac cath * Assessment & Plan Note - Jared Vasquez MD - 11/07/2024 1:05 PM CDT Associated Problem(s): Elevated troponin Hydralazine 10mg TID dc Isosorbide dinitrate 10mg TID dc Entresto 24-26 BID - gave 1 dose 11/06, has not received yet today Jardiance 10 mg Qdaily - not started yet, waiting on CTS recs Metoprolol succinate 25 mg qdaily started yesterday Spironolactone held - will consider starting tomorrow Lasix resumed Telemetry F/u CTS recommendations s/p cardiac cath * Assessment & Plan Note - Jared Vasquez MD - 11/07/2024 1:05 PM CDT Associated Problem(s): Heart failure with reduced ejection fraction (HCC) Hydralazine 10mg TID dc Isosorbide dinitrate 10mg TID dc Entresto 24-26 BID - gave 1 dose 11/06, has not received yet today Jardiance 10 mg Qdaily - not started yet, waiting on CTS recs Metoprolol succinate 25 mg qdaily started yesterday Spironolactone held - will consider starting tomorrow Lasix resumed Telemetry F/u CTS recommendations s/p cardiac cath * Assessment & Plan Note - Jared Vasquez MD - 11/07/2024 11:28 AM CDT Associated Problem(s): Urinary retention Patient voiding without catheter - provided bedside urinal - can restart external catheter if needed - tamsulosin 0.4mg daily * Assessment & Plan Note - Jared Vasquez MD - 11/07/2024 7:41 AM CDT Associated Problem(s): KASEY (acute kidney injury) (Resolved 11/10/2024) Cardiorenal vs hepatorenal syndrome 10/31 US with solid hypoechoic left renal mass and subcentimeter L renal cyst Per rads: CT urogram or abdominal MRI w contrast (will be ordered outpatient) Dc fluid restriction Start cardiac diet Restart lasix * Assessment & Plan Note - Jared Vasquez MD - 11/06/2024 3:34 PM CDT Associated Problem(s): Cardiogenic shock (HCC) Hydralazine 10mg TID Isosorbide dinitrate 10mg TID Lasix resumed Telemetry F/u CTS recommendations s/p cardiac cath * Assessment & Plan Note - Jared Vasquez MD - 11/06/2024 3:34 PM CDT Associated Problem(s): Elevated troponin Hydralazine 10mg TID Isosorbide dinitrate 10mg TID Lasix resumed Telemetry F/u CTS recommendations s/p cardiac cath * Assessment & Plan Note - Jared Vasquez MD - 11/06/2024 3:34 PM CDT Associated Problem(s): Heart failure with reduced ejection fraction (HCC) Hydralazine 10mg TID Isosorbide dinitrate 10mg TID Lasix resumed Telemetry F/u CTS recommendations s/p cardiac cath * Assessment & Plan Note - Jared Vasquez MD - 11/06/2024 3:34 PM CDT Associated Problem(s): KASEY (acute kidney injury) (Resolved 11/10/2024) Cardiorenal vs hepatorenal syndrome 10/31 US with solid hypoechoic left renal mass and subcentimeter L renal cyst Per rads: CT urogram or abdominal MRI w contrast (will be ordered outpatient) Dc fluid restriction Start cardiac diet Restart lasix * Assessment & Plan Note - Jared Vasquez MD - 11/06/2024 3:15 PM CDT Associated Problem(s): Other specified anemias Iron panel consistent with chronic disease - HgB stable, continue to monitor - monitor platelet counts closely * Assessment & Plan Note - Jared Vasquez MD - 11/06/2024 3:15 PM CDT Associated Problem(s): Thrombocytopenia Iron panel consistent with chronic disease - HgB stable, continue to monitor - monitor platelet counts closely * Assessment & Plan Note - Jared Vasquez MD - 11/06/2024 3:15 PM CDT Associated Problem(s): Urinary retention Patient wanting to try voiding without catheter - provided bedside urinal - can restart external catheter if needed - tamsulosin 0.4mg daily * Assessment & Plan Note - Jared Vasquez MD - 11/06/2024 3:15 PM CDT Associated Problem(s): Hepatic trauma, initial encounter Ddx: shock liver vs acetaminophen toxicity vs [...] antibodies, ANCA panel, anti-LKM1 antibodies, IgG, ceruloplasmin, [id number] - F-Actin antibody IgG normal - mitochondrial M2 antibody normal - hepatitis panel normal - Dc all OTC supplements - Dc lactulose - Daily CBC, CMP, INR * Assessment & Plan Note - Jared Vasquez MD - 11/06/2024 3:15 PM CDT Associated Problem(s): Transaminitis Ddx: shock liver vs acetaminophen toxicity vs [...] antibodies, ANCA panel, anti-LKM1 antibodies, IgG, ceruloplasmin, [id number] - F-Actin antibody IgG normal - mitochondrial M2 antibody normal - hepatitis panel normal - Dc all OTC supplements - Dc lactulose - Daily CBC, CMP, INR * Assessment & Plan Note - Jared Vasquez MD - 11/05/2024 1:23 PM CDT Associated Problem(s): Hepatic trauma, initial encounter Ddx: shock liver vs acetaminophen toxicity vs [...] antibodies, ANCA panel, anti-LKM1 antibodies, IgG, ceruloplasmin, [id number] - F-Actin antibody IgG normal - mitochondrial M2 antibody normal - hepatitis panel normal - Dc all OTC supplements - Dc lactulose - Daily CBC, CMP, INR * Assessment & Plan Note - Jared Vasquez MD - 11/05/2024 1:23 PM CDT Associated Problem(s): Transaminitis Ddx: shock liver vs acetaminophen toxicity vs [...] antibodies, ANCA panel, anti-LKM1 antibodies, IgG, ceruloplasmin, [id number] - F-Actin antibody IgG normal - mitochondrial M2 antibody normal - hepatitis panel normal - Dc all OTC supplements - Dc lactulose - Daily CBC, CMP, INR * Assessment & Plan Note - Jared Vasquez MD - 11/05/2024 1:23 PM CDT Associated Problem(s): KASEY (acute kidney injury) (Resolved 11/10/2024) Cardiorenal vs hepatorenal syndrome 10/31 US with solid hypoechoic left renal mass and subcentimeter L renal cyst Per rads: CT urogram or abdominal MRI w contrast Dc fluid restriction Start cardiac diet Restart lasix today * Assessment & Plan Note - Jared Vasquez MD - 11/05/2024 1:23 PM CDT Associated Problem(s): Other specified anemias Iron panel consistent with chronic disease - HgB stable, continue to monitor - monitor platelet counts closely * Assessment & Plan Note - Jared Vasquez MD - 11/05/2024 1:23 PM CDT Associated Problem(s): Thrombocytopenia Iron panel consistent with chronic disease - HgB stable, continue to monitor - monitor platelet counts closely * Assessment & Plan Note - Jared Vasquez MD - 11/05/2024 1:23 PM CDT Associated Problem(s): Cardiogenic shock (HCC) Hydralazine 10mg TID Isosorbide dinitrate 10mg TID Lasix resumed today Telemetry Cards planning for L and R heart cath tomorrow 11/06 NPO midnight * Assessment & Plan Note - Jared Vasquez MD - 11/05/2024 1:23 PM CDT Associated Problem(s): Elevated troponin Hydralazine 10mg TID Isosorbide dinitrate 10mg TID Lasix resumed today Telemetry Cards planning for L and R heart cath tomorrow 11/06 NPO midnight * Assessment & Plan Note - Jared Vasquez MD - 11/05/2024 1:23 PM CDT Associated Problem(s): Heart failure with reduced ejection fraction (HCC) Hydralazine 10mg TID Isosorbide dinitrate 10mg TID Lasix resumed today Telemetry Cards planning for L and R heart cath tomorrow 11/06 NPO midnight * Assessment & Plan Note - Jared Vasquez MD - 11/05/2024 12:07 PM CDT Associated Problem(s): Urinary retention Patient wanting to try voiding without catheter - provided bedside urinal - can restart external catheter if needed - tamsulosin 0.4mg daily * Assessment & Plan Note - Jared Vasquez MD - 11/04/2024 6:59 PM CDT Associated Problem(s): Hepatic trauma, initial encounter Ddx: shock liver vs acetaminophen toxicity vs alcoholic hepatitis vs autoimmune -patient denies alcohol use in the last 40 years Transaminases markedly elevated but downtrending Unclear baseline - no close PCP followup Ultrasound with no clear etiology for liver injury. No ascites. Trace fluid morrisons pouch. PLAN: AMA, MEREDITH, Antismooth muscle antibodies, ANCA panel, anti-LKM1 antibodies, IgG, ceruloplasmin, [id number] - F-Actin antibody IgG normal - mitochondrial M2 antibody normal - hepatitis panel normal - Dc all OTC supplements - Dc lactulose - Daily CBC, CMP, INR * Assessment & Plan Note - Jared Vasquez MD - 11/04/2024 6:59 PM CDT Associated Problem(s): Transaminitis Ddx: shock liver vs acetaminophen toxicity vs alcoholic hepatitis vs autoimmune -patient denies alcohol use in the last 40 years Transaminases markedly elevated but downtrending Unclear baseline - no close PCP followup Ultrasound with no clear etiology for liver injury. No ascites. Trace fluid morrisons pouch. PLAN: AMA, MEREDITH, Antismooth muscle antibodies, ANCA panel, anti-LKM1 antibodies, IgG, ceruloplasmin, [id number] - F-Actin antibody IgG normal - mitochondrial M2 antibody normal - hepatitis panel normal - Dc all OTC supplements - Dc lactulose - Daily CBC, CMP, INR * Assessment & Plan Note - Jared Vasquez MD - 11/04/2024 6:59 PM CDT Associated Problem(s): KASEY (acute kidney injury) (Resolved 11/10/2024) Cardiorenal vs hepatorenal syndrome 10/31 US with solid hypoechoic left renal mass and subcentimeter L renal cyst Per rads: CT urogram or abdominal MRI w contrast Dc fluid restriction Start cardiac diet Holding diuretics today 11/04 * Assessment & Plan Note - Jared Vasquez MD - 11/04/2024 6:59 PM CDT Associated Problem(s): Cardiogenic shock (HCC) Hydralazine 10mg TID Isosorbide dinitrate 10mg TID Lasix held today (diuretic holiday) Telemetry Needs ischemic workup once stable * Assessment & Plan Note - Jared Vasquez MD - 11/04/2024 6:59 PM CDT Associated Problem(s): Elevated troponin Hydralazine 10mg TID Isosorbide dinitrate 10mg TID Lasix held today (diuretic holiday) Telemetry Needs ischemic workup once stable * Assessment & Plan Note - Jared Vasquez MD - 11/04/2024 6:59 PM CDT Associated Problem(s): Heart failure with reduced ejection fraction (HCC) Hydralazine 10mg TID Isosorbide dinitrate 10mg TID Lasix held today (diuretic holiday) Telemetry Needs ischemic workup once stable * Assessment & Plan Note - Jared Vasquez MD - 11/04/2024 6:33 PM CDT Associated Problem(s): Other specified anemias Iron panel consistent with chronic disease - HgB stable, continue to monitor * Assessment & Plan Note - Jared Vasquez MD - 11/04/2024 6:33 PM CDT Associated Problem(s): Leukocytosis (leucocytosis) (Resolved 11/04/2024) Resolved * Assessment & Plan Note - Jared Vasquez MD - 11/04/2024 6:33 PM CDT Associated Problem(s): Urinary retention Patient wanting to try voiding without catheter - provided bedside urinal - can restart external catheter if needed - tamsulosin 0.4mg daily documented in this encounter Administered Medications Inactive Administered Medications - up to 3 most recent administrations Medication Order MAR Action Action Date Dose Rate Site 0.9% NaCl infusion ADS Med 1 dose, Starting on Wed11/07/24 at 1645, Until Wed11/07/24 at 1817, Created by cabinet override $ New Bag/Syringe 11/07/2024 6:17 PM CDT 250 mL 0.9% NaCl injection 1-10 mL 1-10 mL, Intracatheter, PRN, Other, peripheral line flush, Starting on Wed11/01/24 at 2231, Until Wed11/19/24 at 1539, Flush peripheral IV catheter with 1-10 mL of normal saline before and after medications and prn to clear blood from the line or to verify patency. 0.9% NaCl injection 3 mL 3 mL, Intracatheter, EVERY 8 HOURS, First dose on Wed11/01/24 at 2245, Until Discontinued, Flush peripheral IV catheter with 3 mL of normal saline every 8 hours. $ Given 11/19/2024 6:32 AM CDT 3 mL $ Given 11/18/2024 8:32 PM CDT 3 mL $ Given 11/18/2024 5:24 AM CDT 3 mL 0.9% NaCl IV BOLUS 500 mL 500 mL, at 491.8 mL/hr, Administer over 61 Minutes, ONCE, 1 dose, On 11/18/24 at 1300 $ New Bag/Syringe 11/18/2024 12:45 PM CDT 500 mL 491.8 mL/hr acetaminophen (Tylenol) tablet 500 mg 500 mg, Oral, EVERY 6 HOURS PRN, Mild Pain, Starting on Wed11/15/24 at 1350, Until 11/19/24 at 1539, Patient preference for lesser PRN pain meds may be honored when the patient requests a less strong medication, a lower dose, or a less intrusive route of administration when the lesser drug, dose and route have been ordered for the patient. This patient request must be documented in the MAR. If both oral and IV options are ordered for the same pain severity, give oral first unless patient cannot tolerate oral intake acetylcysteine (Acetadote) 30,000 mg in dextrose 5 % 1,150 mL infusion 12.5 mg/kg/hr 73.1 kg (35.0271 mL/hr, rounded to 35.03 mL/hr), Intravenous, CONTINUOUS, Starting on Khadra 11/02/24 at 0015, Until Khad[place] 11/02/24 at 2014 Current Rate 11/02/2024 4:15 AM CDT 12.5 mg/kg/hr 35.03 mL/hr $ New Bag/Syringe 11/02/2024 12:37 AM CDT 12.5 mg/kg/hr 35 .03 mL/hr acetylcysteine (Acetadote) 30,000 mg in dextrose 5 % 1,150 mL infusion 12.5 mg/kg/hr 73.1 kg (35.0271 mL/hr, rounded to 35.03 mL/hr), Intravenous, CONTINUOUS, Starting on Wed11/03/24 at 1300, Until 11/04/24 at 1100 $ New Bag/Syringe 11/03/2024 8:00 PM CDT 12.5 mg/kg/hr 35.03 mL/hr $ New Bag/Syringe 11/03/2024 2:54 PM CDT 12.5 mg/kg/hr 35. 03 mL/hr artificial tears ophthalmic solution 1 drop 1 drop, Each Eye, 3 TIMES DAILY PRN, Dry Eyes, Starting on Wed11/13/24 at 1045, Until 11/19/24 at 1539 $ Given 11/15/2024 8:57 AM CDT 1 drop $ Given 11/13/2024 12:24 PM CDT 1 drop aspirin chew tablet 81 mg 81 mg, Oral, DAILY, First dose on Wed11/06/24 at 1500, Until Discontinued $ Given 11/19/2024 9:48 AM CDT 81 mg $ Given 11/18/2024 9:40 AM CDT 81 mg $ Given 11/16/2024 8:38 AM CDT 81 mg atorvastatin (Lipitor) tablet 80 mg 80 mg, Oral, AT BEDTIME, First dose on 11/11/24 at 2100, Until DiscontinuedIndications:Heart Failure $ Given 11/17/2024 9:31 PM CDT 80 mg $ Given 11/16/2024 8:36 PM CDT 80 mg $ Given 11/15/2024 8:21 PM CDT 80 mg bisacodyl (Dulcolax) suppository 10 mg 10 mg, Rectal, DAILY, First dose on Wed11/02/24 at 1700, Until Discontinued $ Given 11/05/2024 9:19 AM CDT 10 mg $ Given 11/03/2024 8:25 AM CDT 10 mg $ Given 11/02/2024 5:31 PM CDT 10 mg bisacodyl (Dulcolax) suppository 10 mg 10 mg, Rectal, ONCE, 1 dose, On Wed11/08/24 at 1130 $ Given 11/08/2024 12:41 PM CDT 10 mg calcium gluconate 10 % injection 1 g 1 g, Intravenous, ONCE, 1 dose, On 11/04/24 at 0700, Administer no faster than 200 mg/minute if given IV pushIndications:Hypocalce karine $ Given 11/04/2024 8:15 AM CDT 1 g calcium gluconate 2 g in 100 mL NaCl 0.675% 2 g, at 100 mL/hr, Intravenous, ONCE, 1 dose, On [place] 11/19/24 at 0815 $ New Bag/Syringe 11/19/2024 9:15 AM CDT 2 g 100 mL/hr chlorothiazide (Diuril) injection 500 mg 500 mg, Intravenous, ONCE, 1 dose, On [facility] 11/02/24 at 1800, Reconstitute 500 mg powder vial with 18 ml of SWFI for final concentration of 28 mg/mL $ Given 11/02/2024 6:35 PM CDT 500 mg DOBUTamine (Dobutrex) 1,000 mg in 250 mL infusion premix 2.5 mcg/kg/min 73.1 kg (2.7413 mL/hr, rounded to 2.74 mL/hr), Intravenous, CONTINUOUS, Starting on Khadra 11/02/24 at 0200, Until 11/04/24 at 1329, Dosing Parameters: Dosing Parameters, Titration Parameters: Fixed Dose, Indication: Cardiac output, Titrate to: Do not titrate. Physician order required for dose change., Notify physician if: ScVO2 less than 70% $ New Bag/Syringe 11/04/2024 10:32 AM CDT 2.5 mcg/kg/min 2.74 mL/hr Rate Change 11/03/2024 4:29 PM CDT 2.5 mcg/kg/min 2.74 mL/ hr Current Rate 11/02/2024 4:15 AM CDT 5 mcg/kg/min 5.48 mL/h r empagliflozin (Jardiance) tablet 10 mg 10 mg, Oral, DAILY, First dose on [place] 11/19/24 at 0900, Until Discontinued, Restricted to the indication of Heart Failure and/or CKD only due to risk of hypoglycemic when used for DM in acute care settings. Indication for use? Heart FailureIndications:Heart Failure $ Given 11/19/2024 9:48 AM CDT 10 mg fluticasone propionate (Flonase) nasal spray 2 spray 2 spray, Each Nostril, DAILY PRN, Nasal congestion, Starting on [facility] 11/02/24 at 0519, Until [place] 11/19/24 at 1539, Shake gently before use. $ Given 11/09/2024 3:53 AM CDT 2 sprays $ Given 11/02/2024 2:27 PM CDT 2 sprays $ Given 11/02/2024 7:15 AM CDT 2 sprays furosemide (Lasix) injection 40 mg 40 mg, Intravenous, ONCE, 1 dose, On [place] 11/02/24 at 1345, Protect from light $ Given 11/02/2024 2:26 PM CDT 40 mg furosemide (Lasix) injection 40 mg 40 mg, Intravenous, 2 TIMES DAILY (diuretics), First dose (after last modification) on [place] 11/05/24 at 0900, Until Discontinued, Protect from light $ Given 11/05/2024 4:58 PM CDT 40 mg $ Given 11/05/2024 9:29 AM CDT 40 mg furosemide (Lasix) injection 80 mg 80 mg, Intravenous, ONCE, 1 dose, On [place] 11/02/24 at 1800, Protect from light $ Given 11/02/2024 6:19 PM CDT 80 mg furosemide (Lasix) injection 80 mg 80 mg, Intravenous, 3 TIMES DAILY, First dose (after last modification) on Wed11/03/24 at 1400, Until Discontinued, Protect from light $ Given 11/04/2024 8:15 AM CDT 80 mg $ Given 11/03/2024 9:27 PM CDT 80 mg $ Given 11/03/2024 2:49 PM CDT 80 mg furosemide (Lasix) tablet 20 mg 20 mg, Oral, DAILY, First dose (after last modification) on Wed11/18/24 at 0900, Until Discontinued, On hold since Wed11/09/2024 at 0929 until manually unheld furosemide (Lasix) tablet 40 mg 40 mg, Oral, DAILY, First dose on Wed11/07/24 at 0900, Until Discontinued, On hold since Wed11/09/2024 at 0929 until manually unheld $ Given 11/08/2024 10:09 AM CDT 40 mg $ Given 11/07/2024 12:31 PM CDT 40 mg gadobenate dimeglumine (Multihance) injection Intravenous, CONTRAST ONCE, Starting on Wed11/14/24 at 1714, Until Wed11/16/24 at 1713 $ Given - Contrast 11/14/2024 5:16 PM CDT 9 mL gadobenate dimeglumine (Multihance) injection Intravenous, CONTRAST ONCE, Starting on Wed11/14/24 at 1714, Until Wed11/16/24 at 1713 $ Given - Contrast 11/14/2024 5:16 PM CDT 20 mL guaiFENesin (Robitussin) solution 10 mL 10 mL, Oral, Once, 1 dose, On Wed11/10/24 at 2000 $ Given 11/10/2024 10:34 PM CDT 10 mL guaiFENesin ER 12hr (Mucinex) tablet 600 mg 600 mg, Oral, Once, 1 dose, On Wed11/02/24 at 0530, Do not crush, chew, or cut in half. $ Given 11/02/2024 6:13 AM CDT 600 mg heparin injection 5,000 Units 5,000 Units, Subcutaneous, EVERY 8 HOURS, First dose on Wed11/02/24 at 0900, Until Discontinued $ Given 11/19/2024 6:31 AM CDT 5,000 Units Abdominal Tissue $ Given 11/18/2024 8:31 PM CDT 5,000 Units A bdominal Tissue $ Given 11/18/2024 3:23 PM CDT 5,000 Units A bd Right Lower Quadrant hydrALAZINE (Apresoline) injection 10 mg 10 mg, Intravenous, 3 TIMES DAILY, First dose on Wed11/03/24 at 1400, Until DiscontinuedIndications:Heart Failure $ Given 11/04/2024 9:09 PM CDT 10 mg $ Given 11/04/2024 1:19 PM CDT 10 mg $ Given 11/04/2024 8:14 AM CDT 10 mg hydrALAZINE (Apresoline) tablet 10 mg 10 mg, Oral, 3 TIMES DAILY, First dose on Wed11/05/24 at 1000, Until Discontinued $ Given 11/05/2024 9:20 PM CDT 10 m g $ Given 11/05/2024 1:33 PM CDT 10 mg $ Given 11/05/2024 9:40 AM CDT 10 mg isosorbide dinitrate (Isordil) tablet 10 mg 10 mg, Oral, 3 TIMES DAILY (diuretics and nitrates), First dose on Wed11/03/24 at 1315, Until DiscontinuedIndications:Left Systolic Heart Failure $ Given 11/05/2024 4:58 PM CDT 10 mg $ Given 11/05/2024 1:33 PM CDT 10 mg $ Given 11/05/2024 9:30 AM CDT 10 mg lactulose (Chronulac) solution 20 g 20 g, Oral, EVERY 2 HOURS, 5 doses, First dose on Wed11/02/24 at 0000, Last dose on Wed11/02/24 at 0800, THIS PATIENT IS AT RISK FOR FALLS $ Given 11/02/2024 7:55 AM CDT 20 g $ Given 11/02/2024 6:12 AM CDT 20 g $ Given 11/02/2024 4:10 AM CDT 20 g lactulose (Chronulac) solution 20 g 20 g, Oral, 3 TIMES DAILY, First dose on [place]had[place] 11/02/24 at 1400, Until Discontinued, Hold if >5 bowel movements per day THIS PATIENT IS AT RISK FOR FALLS $ Given 11/02/2024 2:26 PM CDT 20 g losartan (Cozaar) tablet 25 mg 25 mg, Oral, DAILY, First dose on 11/18/24 at 0930, Until Discontinued, On hold since Wed11/18/2024 at 1451 until manually unheldIndications:Left Systolic Heart Failure magnesium oxide (Mag-Ox) tablet 400 mg 400 mg, Oral, DAILY, First dose on 11/18/24 at 1015, Until Discontinued $ Given 11/19/2024 9:47 AM CDT 400 mg $ Given 11/18/2024 9:58 AM CDT 400 mg magnesium sulfate 1 g in 100 mL bolus 1 g, at 100 mL/hr, Administer over 60 Minutes, Intravenous, ONCE, 1 dose, On Wed11/08/24 at 0845, Infuse at 1 gm/hr $ New Bag/Syringe 11/08/2024 10:36 AM CDT 1 g 100 mL/hr magnesium sulfate 2 g in 50 mL bolus 2 g, at 25 mL/hr, Administer over 120 Minutes, Intravenous, ONCE, 1 dose, On Wed11/15/24 at 1415, Infuse at 1 gm/hr $ New Bag/Syringe 11/15/2024 2:55 PM CDT 2 g 25 mL/hr magnesium sulfate 4 g in 100 mL bolus 4 g, at 25 mL/hr, Administer over 240 Minutes, Intravenous, ONCE, 1 dose, On 11/12/24 at 0715, Infuse at 1 gm/hr $ New Bag/Syringe 11/12/2024 10:23 AM CDT 4 g 25 mL/hr magnesium sulfate 4 g in 100 mL bolus 4 g, at 25 mL/hr, Administer over 240 Minutes, Intravenous, ONCE, 1 dose, On 11/18/24 at 0915, Infuse at 1 gm/hr $ New Bag/Syringe 11/18/2024 9:47 AM CDT 4 g 25 mL/hr melatonin tablet 3 mg 3 mg, Oral, AT BEDTIME, First dose on Wed11/12/24 at 2100, Until Discontinued $ Given 11/16/2024 8:36 PM CDT 3 mg $ Given 11/15/2024 8:24 PM CDT 3 mg $ Given 11/14/2024 8:50 PM CDT 3 mg melatonin tablet 3 mg 3 mg, Oral, Once, 1 dose, On [place] 11/16/24 at 0345Indications:Insomnia,please give now $ Given 11/16/2024 6:18 AM CDT 3 m g melatonin tablet 6 mg 6 mg, Oral, AT BEDTIME, First dose (after last modification) on Wed11/17/24 at 2100, Until Discontinued $ Given 11/18/2024 8:31 PM CDT 6 mg $ Given 11/17/2024 9:31 PM CDT 6 mg metoprolol succinate XL 24hr (Toprol XL) tablet 25 mg 25 mg, Oral, DAILY, First dose on Wed11/06/24 at 1500, Until Discontinued, Hold for HR < 50 or SBP < 100 May cut in half but do not crush or chew $ Given 11/19/2024 9:48 AM CDT 25 mg $ Given 11/18/2024 9:30 AM CDT 25 mg $ Given 11/16/2024 8:38 AM CDT 25 mg mineral oil enema 1 enema 1 enema, Rectal, Once, 1 dose, On [place] 11/02/24 at 0800 $ Given 11/02/2024 10:14 AM CDT 1 enema morphine injection 2 mg 2 mg, Intravenous, EVERY 4 HOURS PRN, Severe Pain, Starting on Wed11/17/24 at 1309, Until Wed11/19/24 at 1539, Patient preference for lesser PRN pain meds may be honored when the patient requests a less strong medication, a lower dose, or a less intrusive route of administration when the lesser drug, dose and route have been ordered for the patient. This patient request must be documented in the MAR. If both oral and IV options are ordered for the same pain severity, give oral first unless patient cannot tolerate oral intake $ Given 11/17/2024 1:56 PM CDT 2 mg nitroGLYCERIN (Nitrostat) tablet 0.4 mg 0.4 mg, Sublingual, EVERY 5 MIN PRN, Angina, Starting on Wed11/17/24 at 1602, Until Wed11/19/24 at 1539, Every 5 minutes as needed, may repeat up to 3 doses. Contact physician after 1 dose if the patient is still experiencing chest pain and requiring a second dose., Post-op oxyCODONE (immediate release) (Roxicodone) tablet 2.5 mg 2.5 mg, Oral, EVERY 6 HOURS PRN, Moderate Pain, Starting on Wed11/17/24 at 1309, Until Wed11/19/24 at 1539, Patient preference for lesser PRN pain meds may be honored when the patient requests a less strong medication, a lower dose, or a less intrusive route of administration when the lesser drug, dose and route have been ordered for the patient. This patient request must be documented in the MAR. If both oral and IV options are ordered for the same pain severity, give oral first unless patient cannot tolerate oral intake pantoprazole EC (Protonix) tablet 40 mg 40 mg, Oral, DAILY, First dose on Khadra 11/02/24 at 1700, Until Discontinued, Do not crush, chew, or cut in half. $ Given 11/19/2024 9:47 AM CDT 40 mg $ Given 11/18/2024 9:40 AM CDT 40 mg $ Given 11/16/2024 8:38 AM CDT 40 mg perflutren lipid microsphere (Definity) injection 0.5 mL 0.5 mL, Intravenous, INTRA-PROCEDURE MULTIPLE, Starting on Wed11/02/24 at 1634, Until Wed11/02/24 at 2032, For Echo Procedure - Per Protocol Give slowly Shake well before using. $ Given 11/02/2024 5:07 PM CDT 0.5 mL phytonadione (Vitamin K) 10 mg in dextrose 5 % 50 mL IVPB 10 mg, at 150 mL/hr, Intravenous, DAILY, 3 doses, First dose on Khadra 11/02/24 at 1115, Last dose on 11/04/24 at 0900, Protect from light $ New Bag/Syringe 11/04/2024 8:52 AM CDT 10 mg 150 mL/hr $ New Bag/Syringe 11/03/2024 9:42 AM CDT 10 mg 150 mL /hr $ New Bag/Syringe 11/02/2024 11:15 AM CDT 10 mg 150 m L/hr polyethylene glycol 3350 (Miralax) packet 17 g 17 g, Oral, 2 TIMES DAILY, First dose on Wed11/03/24 at 1315, Until Discontinued, 17 g dose: mix in 8 ounces of water, juice, soda, coffee or tea prior to administration. For bowel prep check for other instructions. $ Given 11/06/2024 9:22 PM CDT 17 g $ Given 11/05/2024 9:21 PM CDT 17 g $ Given 11/05/2024 9:19 AM CDT 17 g polyethylene glycol 3350 (Miralax) packet 17 g 17 g, Oral, DAILY, First dose (after last modification) on Wed11/08/24 at 1145, Until Discontinued, 17 g dose: mix in 8 ounces of water, juice, soda, coffee or tea prior to administration. For bowel prep check for other instructions.Indications:Constipation $ Given 11/14/2024 8:17 AM C DT 17 g $ Given 11/13/2024 9:18 AM CDT 17 g $ Given 11/08/2024 12:41 PM CDT 17 g potassium - sodium phosphates (Phos-Nak) powder 1 packet 1 packet, Oral, 3 TIMES DAILY WITH MEALS, First dose on Wed11/06/24 at 0715, Until Discontinued, Mix contents of packet in 6 to 8 ounces of water and drink, may taste better if cold Contains Phos 8 mmol, K+ 7 mEq, Na 7 mEq per packet $ Given 11/12/2024 6:44 PM CDT 1 packet $ Given 11/12/2024 1:46 PM CDT 1 packet $ Given 11/12/2024 10:15 AM CDT 1 packet potassium chloride (Klor-Con) packet 40 mEq 40 mEq, Oral, ONCE, 1 dose, On Khadra 11/02/24 at 0545, Mix one packet in at least 4 oz of cold water or beverage of choice. $ Given 11/02/2024 6:12 AM CDT 40 mEq potassium chloride (Klor-Con) packet 40 mEq 40 mEq, Oral, ONCE, 1 dose, On 11/04/24 at 0500, Mix one packet in at least 4 oz of cold water or beverage of choice. $ Given 11/04/2024 6:49 AM CDT 40 mEq potassium chloride (Klor-Con) packet 40 mEq 40 mEq, Oral, 2 TIMES DAILY, 2 doses, First dose on 11/05/24 at 0630, Last dose on 11/05/24 at 2100, Mix one packet in at least 4 oz of cold water or beverage of choice. $ Given 11/05/2024 9:20 PM CDT 40 mEq $ Given 11/05/2024 9:19 AM CDT 40 mEq potassium chloride (Klor-Con) packet 40 mEq 40 mEq, Oral, 2 TIMES DAILY WITH MEALS, First dose on Wed11/08/24 at 1800, Until Discontinued, Mix one packet in at least 4 oz of cold water or beverage of choice. $ Given 11/12/2024 6:44 PM CDT 40 m Eq $ Given 11/12/2024 10:15 AM CDT 40 mEq $ Given 11/11/2024 5:33 PM CDT 40 mEq potassium chloride 40 mEq in 270 mL bolus 40 mEq, at 67.5 mL/hr, Administer over 4 Hours, Intravenous, ONCE, 1 dose, On Khadra 11/02/24 at 1345 $ New Bag/Syringe 11/02/2024 2:29 PM CDT 40 mEq 67.5 mL/hr potassium chloride 40 mEq in 270 mL bolus 40 mEq, at 67.5 mL/hr, Administer over 4 Hours, Intravenous, ONCE, 1 dose, On Wed11/03/24 at 0445 $ New Bag/Syringe 11/03/2024 4:52 AM CDT 40 mEq 67.5 mL/hr potassium chloride 40 mEq in 270 mL bolus 40 mEq, at 67.5 mL/hr, Administer over 4 Hours, Intravenous, ONCE, 1 dose, On 11/05/24 at 0845 $ New Bag/Syringe 11/05/2024 1:36 PM CDT 40 mEq 67.5 mL/hr potassium chloride 40 mEq in 270 mL bolus 40 mEq, at 67.5 mL/hr, Administer over 4 Hours, Intravenous, ONCE, 1 dose, On Tu11/07/24 at 1330 $ New Bag/Syringe 11/07/2024 2:04 PM CDT 40 mEq 67.5 mL/hr potassium chloride 40 mEq in 270 mL bolus 40 mEq, at 67.5 mL/hr, Administer over 4 Hours, Intravenous, ONCE, 1 dose, On Wed11/08/24 at 0900 $ New Bag/Syringe 11/08/2024 11:40 AM CDT 40 mEq 67.5 mL/hr potassium chloride ER (Klor-Con M) tablet 20 mEq 20 mEq, Oral, ONCE, 1 dose, On [place] 11/19/24 at 0830, Do not crush or chew. $ Given 11/19/2024 9:48 AM CDT 20 mEq potassium chloride ER (Klor-Con M) tablet 40 mEq 40 mEq, Oral, ONCE, 1 dose, On Khadra 11/02/24 at 1800, Do not crush or chew. $ Given 11/02/2024 6:19 PM CDT 40 mEq potassium chloride ER (Klor-Con M) tablet 40 mEq 40 mEq, Oral, ONCE, 1 dose, On 11/04/24 at 0815, Do not crush or chew. $ Given 11/04/2024 8:15 AM CDT 40 mEq potassium chloride ER (Klor-Con M) tablet 40 mEq 40 mEq, Oral, ONCE, 1 dose, On 11/18/24 at 0930, Do not crush or chew. $ Given 11/18/2024 9:58 AM CDT 40 mEq potassium phosphate 30 mmol in d5w 260 mL bolus premix 30 mmol, at 43.33 mL/hr, Administer over 6 Hours, Intravenous, ONCE, 1 dose, On 11/04/24 at 0500, 3 mmol phosphate = 4.4 mEq potassium $ New Bag/Syringe 11/04/2024 6:52 AM CDT 30 mmol 43.33 mL/hr rosuvastatin (Crestor) tablet 20 mg 20 mg, Oral, DAILY, First dose on 11/18/24 at 0930, Until Discontinued $ Given 11/19/2024 9:47 AM CDT 20 mg $ Given 11/18/2024 9:40 AM CDT 20 mg sacubitril-valsartan (Entresto) 24-26 MG tablet 1 tablet 1 tablet, Oral, 2 TIMES DAILY, First dose on Wed11/06/24 at 2100, Until Discontinued, Hold for BP < 90/60 $ Given 11/17/2024 9:31 PM CDT 1 tablet $ Given 11/08/2024 10:09 AM CDT 1 tablet $ Given 11/07/2024 9:19 PM CDT 1 tablet saline nasal spray ([place]; Baby [place]) 0.65 % nasal spray 1 spray 1 spray, Each Nostril, EVERY 1 HOUR PRN, Dry Nose, Starting on Khadra 11/09/24 at 0336, Until 11/19/24 at 1539 senna (Senokot) tablet 8.6 mg 8.6 mg, Oral, DAILY, First dose on Wed11/08/24 at 1145, Until Discontinued $ Given 11/14/2024 8:18 AM CDT 8.6 mg $ Given 11/13/2024 9:18 AM CDT 8.6 mg $ Given 11/12/2024 10:15 AM CDT 8.6 mg sodium - potassium phosphates (K Phos Neutral) tablet 2 tablet 2 tablet, Oral, ONCE, 1 dose, On 11/19/24 at 1345, Contains Phos 8 mmol, K+ 1.1 mEq, Na 13 mEq per tabletIndications:Hypophosphatemia $ Given 11/19/2024 1:45 PM CDT 2 tablets sodium bicarbonate tablet 650 mg 650 mg, Oral, 3 TIMES DAILY, First dose on Wed11/01/24 at 2330, Until Discontinued $ Given 11/02/2024 7:55 AM CDT 650 mg $ Given 11/02/2024 12:23 AM CDT 650 mg sodium chloride tablet 1 g 1 g, Oral, 2 TIMES DAILY WITH MEALS, First dose on 11/18/24 at 0930, Until Discontinued $ Given 11/18/2024 9:40 AM CDT 1 g sodium chloride tablet 2 g 2 g, Oral, 3 TIMES DAILY WITH MEALS, 2 doses, First dose (after last modification) on Wed11/18/24 at 1230, Last dose on Wed11/18/24 at 1800Indications:Electrolyte Disorder $ Given 11/18/2024 12:45 PM CDT 2 g sodium chloride tablet 2 g 2 g, Oral, 3 TIMES DAILY WITH MEALS, 3 doses, First dose (after last modification) on Wed11/18/24 at 1800, Last dose on Wed11/19/24 at 1200Indications:Electrolyte Disorder $ Given 11/19/2024 12:56 PM CDT 2 g $ Given 11/19/2024 9:47 AM CDT 2 g $ Given 11/18/2024 6:02 PM CDT 2 g sodium phosphate 30 mmol in 260 mL bolus 30 mmol, at 43.33 mL/hr, Administer over 6 Hours, Intravenous, ONCE, 1 dose, On Wed11/19/24 at 0815 $ New Bag/Syringe 11/19/2024 9:36 AM CDT 30 mmol 43.33 mL/hr spironolactone (Aldactone) tablet 12.5 mg 12.5 mg, Oral, DAILY, First dose (after last modification) on Wed11/08/24 at 1200, Until Discontinued $ Given 11/19/2024 9:46 AM CDT 12.5 mg $ Given 11/18/2024 9:40 AM CDT 12.5 mg $ Given 11/16/2024 8:38 AM CDT 12.5 mg sterile water for injection (preservative free) injection ADS Med 1 dose, Starting on Wed11/02/24 at 1842, Until Wed11/02/24 at 1907, Created by cabinet override $ New Bag/Syringe 11/02/2024 7:07 PM CDT tamsulosin (Flomax) capsule 0.4 mg 0.4 mg, Oral, DAILY, First dose on Wed11/02/24 at 0900, Until Discontinued, At the same time every day after a meal. Do not crush or chew. May open capsule and administer contents per tube. J-tube administration is not appropriate as the small lumen would necessitate crushing of granules. $ Given 11/19/2024 9:48 AM CDT 0.4 mg $ Given 11/18/2024 9:40 AM CDT 0.4 mg $ Given 11/16/2024 8:38 AM CDT 0.4 mg throat lozenge 1 lozenge 1 lozenge, Oral, EVERY 2 HOURS PRN, Sore Throat, may help with cough as well, Starting on Wed11/10/24 at 1954, Until 11/19/24 at 1539 $ Given 11/14/2024 8:50 PM CDT 1 lozenge $ Given 11/11/2024 8:18 PM CDT 1 lozenge $ Given 11/11/2024 3:53 PM CDT 1 lozenge ticagrelor (Brilinta) tablet 90 mg 90 mg, Oral, 2 TIMES DAILY, First dose on Wed11/17/24 at 2100, Until Discontinued $ Given 11/19/2024 9:47 AM CDT 90 mg $ Given 11/18/2024 8:31 PM CDT 90 mg $ Given 11/18/2024 9:40 AM CDT 90 mg traZODone (Desyrel) tablet 100 mg 100 mg, Oral, AT BEDTIME PRN, Insomnia, Starting on 11/12/24 at 1044, Until 11/15/24 at 1350, First line for insomnia $ Given 11/14/2024 8:50 PM CDT 100 mg $ Given 11/13/2024 9:54 PM CDT 100 mg $ Given 11/12/2024 7:30 PM CDT 100 mg traZODone (Desyrel) tablet 50 mg 50 mg, Oral, AT BEDTIME PRN, Insomnia, Starting on 11/11/24 at 1347, Until 11/12/24 at 1044 $ Given 11/11/2024 8:18 PM CDT 50 mg zolpidem (Ambien) tablet 5 mg 5 mg, Oral, AT BEDTIME PRN, Insomnia, Starting on Wed11/15/24 at 1222, Until 11/19/24 at 1539, Second line for insomnia $ Given 11/16/2024 8:36 PM CDT 5 m g $ Given 11/15/2024 8:21 PM CDT 5 mg documented in this encounter Active and Recently Administered Medications Times are shown in CDT. Scheduled Medication Order 11/17/2024 11/18/2024 11/19/2024 0.9% NaCl injection 3 mL(Linked Group 1) 3 mL, Intracatheter, EVERY 8 HOURS, First dose on Wed11/01/24 at 2245, Until Discontinued, Flush peripheral IV catheter with 3 mL of normal saline every 8 hours. 0559 ($ Given - Provider: Joann Sánchez RN)1400 (Not Administered - Provider: Rahel Reynolds RN - Reason: See Comments - Comment: Not on unit.)2132 ($ Given - Provider: Juarez Asif, Paulina Nurse) 0524 ($ Given - Provider: Paulina King Nurse)1400 (Not Administered - Provider: Rahel Reynolds RN - Reason: IV Currently Infusing)2031 ($ Given - Provider: Paulina King Nurse) 0632 ($ Given - Provider: Paulina King Nurse)1400 (Due) 0.9% NaCl IV BOLUS 500 mL (COMPLETED) 500 mL, at 491.8 mL/hr, Administer over 61 Minutes, ONCE, 1 dose, On 11/18/24 at 1300 1245 ($ New Bag/Syringe - Provider: Rahel Reynolds RN)1402 (Stopped - Provider: Rahel Reynolds RN) aspirin chew tablet 81 mg 81 mg, Oral, DAILY, First dose on Wed11/06/24 at 1500, Until Discontinued 0656 (Auto MAR Hold - Provider: Automatic Transfer Provider - Reason: Procedural Hold)0900 (Dose Held - Provider: Automatic Transfer Provider)0920 (MAR Unhold - Provider: Automatic Transfer Provider)0921 (Auto MAR Hold - Provider: Automatic Transfer Provider - Reason: Procedural Hold)1308 (MAR Unhold - Provider: Hugo De La Cruz APRN-WALLPAPERER) 0940 ($ Given - Provider: Rahel Reynolds RN) 0948 ($ Given - Provider: Rahel Reynolds RN) atorvastatin (Lipitor) tablet 80 mg (CANCELED) 80 mg, Oral, AT BEDTIME, First dose on 11/11/24 at 2100, Until Discontinued 0656 (Auto MAR Hold - Provider: Automatic Transfer Provider - Reason: Procedural Hold)0920 (MAR Unhold - Provider: Automatic Transfer Provider)0921 (Auto MAR Hold - Provider: Automatic Transfer Provider - Reason: Procedural Hold)1308 (JUN Unhold - Provider: Hugo De La Cruz, TREE INSPECTOR-WALLPAPERER)2131 ($ Given - Provider: Paulina King Nurse) calcium gluconate 2 g in 100 mL NaCl 0.675% (COMPLETED) 2 g, at 100 mL/hr, Intravenous, ONCE, 1 dose, On 11/19/24 at 0815 0915 ($ New Bag/Syringe - Provider: Rahel Reynolds RN)1015 (Stopped - Provider: Rahel Reynolds RN) empagliflozin (Jardiance) tablet 10 mg 10 mg, Oral, DAILY, First dose on 11/19/24 at 0900, Until Discontinued, Restricted to the indication of Heart Failure and/or CKD only due to risk of hypoglycemic when used for DM in acute care settings. Indication for use? Heart Failure 0948 ($ Given - Provider: Rahel Reynolds RN) furosemide (Lasix) tablet 20 mg 20 mg, Oral, DAILY, First dose (after last modification) on 11/18/24 at 0900, Until Discontinued, On hold since Khadra 11/09/2024 at 0929 until manually unheld 0900 (Dose Held) 0900 (Dose Held)1539 (Unheld by Provider - Provider: Generic, Auto Release) heparin injection 5,000 Units 5,000 Units, Subcutaneous, EVERY 8 HOURS, First dose on Khadra 11/02/24 at 0900, Until Discontinued 0559 ($ Given - Provider: Joann Sánchez RN)0656 (Auto MAR Hold - Provider: Automatic Transfer Provider - Reason: Procedural Hold)0920 (JUN Unhold - Provider: Automatic Transfer Provider)0921 (Auto MAR Hold - Provider: Automatic Transfer Provider - Reason: Procedural Hold)1400 (Dose Held - Provider: Automatic Transfer Provider)1640 (JUN Unhold - Provider: Automatic Transfer Provider)2133 ($ Given - Provider: Paulina King Nurse) 0524 ($ Given - Provider: Paulina King Nurse)1523 ($ Given - Provider: Rahel Reynolds RN)2031 ($ Given - Provider: Paulina King Nurse) 0631 ($ Given - Provider: Paulina King Nurse)1400 (Due) losartan (Cozaar) tablet 25 mg 25 mg, Oral, DAILY, First dose on 11/18/24 at 0930, Until Discontinued, On hold since 11/18/2024 at 1451 until manually unheld 0940 (Not Administered - Provider: Rahel Reynolds RN - Reason: See Comments)1451 (Held by Provider - Provider: ANTWAN Irby - Reason: Change in Patient Condition - Comment: Hypotension, could not tolerate entresto d/t hypotension after dose) 0900 (Dose Held - Provider: ANTWAN Irby)1539 (Unheld by Provider - Provider: Generic, Auto Release) magnesium oxide (Mag-Ox) tablet 400 mg 400 mg, Oral, DAILY, First dose on 11/18/24 at 1015, Until Discontinued 0958 ($ Given - Provider: Rahel Reynolds RN) 0947 ($ Given - Provider: Rahel Reynolds RN) magnesium sulfate 4 g in 100 mL bolus (COMPLETED) 4 g, at 25 mL/hr, Administer over 240 Minutes, Intravenous, ONCE, 1 dose, On 11/18/24 at 0915, Infuse at 1 gm/hr 0947 ($ New Bag/Syringe - Provider: Rahel Reynolds RN)1402 (Stopped - Provider: Rahel Reynolds RN) melatonin tablet 6 mg 6 mg, Oral, AT BEDTIME, First dose (after last modification) on Wed11/17/24 at 2100, Until Discontinued 2130 ($ Given - Provider: Juarez Asif, Graduate Nurse) 2030 ($ Given - Provider: Juarez Asif, Graduate Nurse) metoprolol succinate XL 24hr (Toprol XL) tablet 25 mg 25 mg, Oral, DAILY, First dose on Wed11/06/24 at 1500, Until Discontinued, Hold for HR < 50 or SBP < 100 May cut in half but do not crush or chew 0900 (Due) 0930 ($ Given - Provider: Rahel Reynolds RN - Comment: Provider at bedside requesting administration.) 0948 ($ Given - Provider: Rahel Reynolds RN) pantoprazole EC (Protonix) tablet 40 mg 40 mg, Oral, DAILY, First dose on Wed11/02/24 at 1700, Until Discontinued, Do not crush, chew, or cut in half. 0656 (Auto MAR Hold - Provider: Automatic Transfer Provider - Reason: Procedural Hold)0900 (Dose Held - Provider: Automatic Transfer Provider)0920 (MAR Unhold - Provider: Automatic Transfer Provider)0921 (Auto MAR Hold - Provider: Automatic Transfer Provider - Reason: Procedural Hold)1308 (MAR Unhold - Provider: ANTWAN Irby) 0940 ($ Given - Provider: Rahel Reynolds RN) 0947 ($ Given - Provider: Rahel Reynolds RN) polyethylene glycol 3350 (Miralax) packet 17 g 17 g, Oral, DAILY, First dose (after last modification) on Wed11/08/24 at 1145, Until Discontinued, 17 g dose: mix in 8 ounces of water, juice, soda, coffee or tea prior to administration. For bowel prep check for other instructions. 0900 (Dose Held - Provider: Francine Posada MD)1308 (Unheld by Provider - Provider: ANTWAN Irby) 0944 (Not Administered - Provider: Rahel Reynodls RN - Reason: Refused-Patient) 0949 (Not Administered - Provider: Rahel Reynolds RN - Reason: Refused-Patient) potassium chloride ER (Klor-Con M) tablet 20 mEq (COMPLETED) 20 mEq, Oral, ONCE, 1 dose, On Wed11/19/24 at 0830, Do not crush or chew. 0948 ($ Given - Provider: Rahel Reynolds RN) potassium chloride ER (Klor-Con M) tablet 40 mEq (COMPLETED) 40 mEq, Oral, ONCE, 1 dose, On 11/18/24 at 0930, Do not crush or chew. 0958 ($ Given - Provider: Rahel Reynolds RN) rosuvastatin (Crestor) tablet 20 mg 20 mg, Oral, DAILY, First dose on 11/18/24 at 0930, Until Discontinued 0940 ($ Given - Provider: Rahel Reynolds RN) 0947 ($ Given - Provider: Rahel Reynolds RN) sacubitril-valsartan (Entresto) 24-26 MG tablet 1 tablet (CANCELED) 1 tablet, Oral, 2 TIMES DAILY, First dose on Wed11/06/24 at 2100, Until Discontinued, Hold for BP < 90/60 0900 (Dose Held)1308 (Unheld by Provider - Provider: ANTWAN Irby)2131 ($ Given - Provider: Juarez Asif, Graduate Nurse) senna (Senokot) tablet 8.6 mg 8.6 mg, Oral, DAILY, First dose on Wed11/08/24 at 1145, Until Discontinued 0900 (Dose Held - Provider: Francine Posada MD)1308 (Unheld by Provider - Provider: ANTWAN Irby) 0944 (Not Administered - Provider: Rahel Reynolds RN - Reason: Refused-Patient) 0949 (Not Administered - Provider: Rahel Reynolds RN - Reason: Refused-Patient) sodium - potassium phosphates (K Phos Neutral) tablet 2 tablet (COMPLETED) 2 tablet, Oral, ONCE, 1 dose, On 11/19/24 at 1345, Contains Phos 8 mmol, K+ 1.1 mEq, Na 13 mEq per tablet 1345 ($ Given - Provider: Rahel Reynolds RN) sodium chloride tablet 1 g (CANCELED) 1 g, Oral, 2 TIMES DAILY WITH MEALS, First dose on 11/18/24 at 0930, Until Discontinued 0940 ($ Given - Provider: Rahel Reynolds RN) sodium chloride tablet 2 g (CANCELED) 2 g, Oral, 3 TIMES DAILY WITH MEALS, 2 doses, First dose (after last modification) on 11/18/24 at 1230, Last dose on 11/18/24 at 1800 1245 ($ Given - Provider: Rahel Reynolds RN) sodium chloride tablet 2 g (COMPLETED) 2 g, Oral, 3 TIMES DAILY WITH MEALS, 3 doses, First dose (after last modification) on 11/18/24 at 1800, Last dose on 11/19/24 at 1200 1802 ($ Given - Provider: Rahel Reynolds RN) 0947 ($ Given - Provider: Rahel Reynolds RN)1256 ($ Given - Provider: Rahel Reynolds RN) sodium phosphate 30 mmol in 260 mL bolus 30 mmol, at 43.33 mL/hr, Administer over 6 Hours, Intravenous, ONCE, 1 dose, On Wed11/19/24 at 0815 0936 ($ New Bag/Syringe - Provider: Rahel Reynolds RN)1536 (Due: Stopped - Provider: Rahel Reynolds RN) spironolactone (Aldactone) tablet 12.5 mg 12.5 mg, Oral, DAILY, First dose (after last modification) on Wed11/08/24 at 1200, Until Discontinued 0656 (Auto MAR Hold - Provider: Automatic Transfer Provider - Reason: Procedural Hold)0900 (Dose Held - Provider: Automatic Transfer Provider)0920 (MAR Unhold - Provider: Automatic Transfer Provider)0921 (Auto MAR Hold - Provider: Automatic Transfer Provider - Reason: Procedural Hold)1308 ([facility] Unhold - Provider: ANTWAN Irby) 0940 ($ Given - Provider: Rahel Reynolds RN) 0946 ($ Given - Provider: Rahel Reynolds RN) tamsulosin (Flomax) capsule 0.4 mg 0.4 mg, Oral, DAILY, First dose on Wed11/02/24 at 0900, Until Discontinued, At the same time every day after a meal. Do not crush or chew. May open capsule and administer contents per tube. J-tube administration is not appropriate as the small lumen would necessitate crushing of granules. 0656 (Auto MAR Hold - Provider: Automatic Transfer Provider - Reason: Procedural Hold)0900 (Dose Held - Provider: Automatic Transfer Provider)0920 (MAR Unhold - Provider: Automatic Transfer Provider)0921 (Auto MAR Hold - Provider: Automatic Transfer Provider - Reason: Procedural Hold)1308 ([facility] Unhold - Provider: ANTWAN Irby) 0940 ($ Given - Provider: Rahel Reynolds RN) 0948 ($ Given - Provider: Rahel Reynolds RN) ticagrelor (Brilinta) tablet 90 mg 90 mg, Oral, 2 TIMES DAILY, First dose on Wed11/17/24 at 2100, Until Discontinued 2131 ($ Given - Provider: Juarez Asif, Graduate Nurse) 0940 ($ Given - Provider: Rahel Reynolds, RN)2030 ($ Given - Provider: Juarez Asif, Graduate Nurse) 0947 ($ Given - Provider: Rahel Reynolds, [place]) PRN Medication Order 11/17/2024 11/18/2024 11/19/2024 0.9% NaCl injection 1-10 mL(Linked Group 1) 1-10 mL, Intracatheter, PRN, Other, peripheral line flush, Starting on Wed11/01/24 at 2231, Until 11/19/24 at 1539, Flush peripheral IV catheter with 1-10 mL of normal saline before and after medications and prn to clear blood from the line or to verify patency. acetaminophen (Tylenol) tablet 500 mg 500 mg, Oral, EVERY 6 HOURS PRN, Mild Pain, Starting on Wed11/15/24 at 1350, Until Wed11/19/24 at 1539, Patient preference for lesser PRN pain meds may be honored when the patient requests a less strong medication, a lower dose, or a less intrusive route of administration when the lesser drug, dose and route have been ordered for the patient. This patient request must be documented in the [facility]. If both oral and IV options are ordered for the same pain severity, give oral first unless patient cannot tolerate oral intake 0656 (Auto [facility] Hold - Provider: Automatic Transfer Provider - Reason: Procedural Hold)0920 (MAR Unhold - Provider: Automatic Transfer Provider)0921 (Auto [facility] Hold - Provider: Automatic Transfer Provider - Reason: Procedural Hold)1308 (MAR Unhold - Provider: Hugo De La Cruz APRN-WALLPAPERER) artificial tears ophthalmic solution 1 drop 1 drop, Each Eye, 3 TIMES DAILY PRN, Dry Eyes, Starting on Wed11/13/24 at 1045, Until 11/19/24 at 1539 0656 (Auto [facility] Hold - Provider: Automatic Transfer Provider - Reason: Procedural Hold)0920 (MAR Unhold - Provider: Automatic Transfer Provider)0921 (Auto [facility] Hold - Provider: Automatic Transfer Provider - Reason: Procedural Hold)1308 ([facility] Unhold - Provider: ANTWAN Irby) aspirin tablet (CANCELED) PRN, Starting on Wed11/17/24 at 0758, Until Wed11/17/24 at 0920, Intra-procedure (CATH) 0758 ($ Given - Provider: Cee Mims RN) fentaNYL (PF) (Sublimaze) injection (CANCELED) PRN, Starting on Wed11/17/24 at 0810, Until Wed11/17/24 at 0920, Intra-procedure (CATH) 0810 ($ Given - Provider: Cee Mims RN)0917 ($ Given - Provider: Cee Mims RN) fentaNYL (PF) (Sublimaze) injection (CANCELED) PRN, Starting on Wed11/17/24 at 0935, Until Wed11/17/24 at 1640, Intra-procedure (CATH) 0935 ($ Given - Provider: Cee Mims RN)1006 (Canceled Entry - Provider: Cee Mims RN)1032 ($ Given - Provider: Cee Mims RN)1047 ($ Given - Provider: Cee Mims RN)1059 ($ Given - Provider: Cee Mims RN)1126 ($ Given - Provider: Stephanie Durham RN) fluticasone propionate (Flonase) nasal spray 2 spray 2 spray, Each Nostril, DAILY PRN, Nasal congestion, Starting on Khadra 11/02/24 at 0519, Until 11/19/24 at 1539, Shake gently before use. 0656 (Auto MAR Hold - Provider: Automatic Transfer Provider - Reason: Procedural Hold)0920 (MAR Unhold - Provider: Automatic Transfer Provider)0921 (Auto MAR Hold - Provider: Automatic Transfer Provider - Reason: Procedural Hold)1308 (MAR Unhold - Provider: ANTWAN Iryb) heparin injection (CANCELED) PRN, Starting on Wed11/17/24 at 0837, Until Wed11/17/24 at 0920, Intra-procedure (CATH) 0837 ($ Given - Provider: Cee Mims RN)0917 ($ Given - Provider: Cee Mims RN) heparin injection (CANCELED) PRN, Starting on Wed11/17/24 at 0932, Until Wed11/17/24 at 1640, Intra-procedure (CATH) 0932 ($ Given - Provider: Cee Mims RN)0950 ($ Given - Provider: Cee Mims RN)1015 ($ Given - Provider: Cee Mims RN)1047 ($ Given - Provider: Stephanie Durham, RN) heparinized saline 2 units/mL infusion (CANCELED) CONTINUOUS PRN, Starting on Wed11/17/24 at 1136, Until Wed11/17/24 at 1640, Intra-procedure (CATH) 1136 ($ New Bag/Syringe - Provider: Raulito Santos MD) iopamidol (Isovue 370) 76 % contrast (CANCELED) PRN, Starting on Wed11/17/24 at 1145, Until Wed11/17/24 at 1640, Intra-procedure (CATH) 1145 ($ Given - Provider: Raulito Santos MD) lidocaine (Xylocaine) 1 % injection (CANCELED) PRN, Starting on Wed11/17/24 at 0815, Until Wed11/17/24 at 0920, Intra-procedure (CATH) 0815 ($ Given - Provider: Shankar Womack MD) midazolam (Versed) injection (CANCELED) PRN, Starting on Wed11/17/24 at 0810, Until Wed11/17/24 at 0920, Intra-procedure (CATH) 0810 ($ Given - Provider: Cee Mims RN)0917 ($ Given - Provider: Cee Mims RN) midazolam (Versed) injection (CANCELED) PRN, Starting on Wed11/17/24 at 0934, Until Wed11/17/24 at 1640, Intra-procedure (CATH) 0934 ($ Given - Provider: Cee Mims RN)1006 ($ Given - Provider: Cee Mims RN)1032 ($ Given - Provider: Cee Mims RN)1047 ($ Given - Provider: Cee Mims RN)1101 ($ Given - Provider: Cee Mims RN)1126 ($ Given - Provider: Stephanie Durham RN) morphine injection 2 mg 2 mg, Intravenous, EVERY 4 HOURS PRN, Severe Pain, Starting on Wed11/17/24 at 1309, Until Wed11/19/24 at 1539, Patient preference for lesser PRN pain meds may be honored when the patient requests a less strong medication, a lower dose, or a less intrusive route of administration when the lesser drug, dose and route have been ordered for the patient. This patient request must be documented in the MAR. If both oral and IV options are ordered for the same pain severity, give oral first unless patient cannot tolerate oral intake 1356 ($ Given - Provider: Luh Brown, [place]) niCARdipine (Cardene) injection (CANCELED) PRN, Starting on Wed11/17/24 at 0921, Until Wed11/17/24 at 1640, Intra-procedure (CATH) 0921 ($ Given - Provider: Raulito Santos MD - Comment: IC)1011 ($ Given - Provider: Raulito Santos MD - Comment: IC)1112 ($ Given - Provider: Raulito Santos MD - Comment: IC) nitroGLYCERIN (Nitrostat) tablet 0.4 mg 0.4 mg, Sublingual, EVERY 5 MIN PRN, Angina, Starting on Wed11/17/24 at 1602, Until Wed11/19/24 at 1539, Every 5 minutes as needed, may repeat up to 3 doses. Contact physician after 1 dose if the patient is still experiencing chest pain and requiring a second dose., Post-op nitroGLYCERIN 200 mcg/mL injection (CANCELED) PRN, Starting on Wed11/17/24 at 0920, Until Wed11/17/24 at 1640, Intra-procedure (CATH) 0920 ($ Given - Provider: Raulito Santos MD)1011 ($ Given - Provider: Raulito Santos MD)1112 ($ Given - Provider: Raulito Santos MD) oxyCODONE (immediate release) (Roxicodone) tablet 2.5 mg 2.5 mg, Oral, EVERY 6 HOURS PRN, Moderate Pain, Starting on Wed11/17/24 at 1309, Until Wed11/19/24 at 1539, Patient preference for lesser PRN pain meds may be honored when the patient requests a less strong medication, a lower dose, or a less intrusive route of administration when the lesser drug, dose and route have been ordered for the patient. This patient request must be documented in the MAR. If both oral and IV options are ordered for the same pain severity, give oral first unless patient cannot tolerate oral intake saline nasal spray ([place]; Baby [place]) 0.65 % nasal spray 1 spray 1 spray, Each Nostril, EVERY 1 HOUR PRN, Dry Nose, Starting on Wed11/09/24 at 0336, Until 11/19/24 at 1539 0656 (Auto MAR Hold - Provider: Automatic Transfer Provider - Reason: Procedural Hold)0920 (MAR Unhold - Provider: Automatic Transfer Provider)0921 (Auto MAR Hold - Provider: Automatic Transfer Provider - Reason: Procedural Hold)1308 (MAR Unhold - Provider: Hugo De La Cruz APRN-WALLPAPERER) throat lozenge 1 lozenge 1 lozenge, Oral, EVERY 2 HOURS PRN, Sore Throat, may help with cough as well, Starting on Wed11/10/24 at 1954, Until 11/19/24 at 1539 0656 (Auto MAR Hold - Provider: Automatic Transfer Provider - Reason: Procedural Hold)0920 (MAR Unhold - Provider: Automatic Transfer Provider)0921 (Auto MAR Hold - Provider: Automatic Transfer Provider - Reason: Procedural Hold)1308 (MAR Unhold - Provider: Hugo De La Cruz APRN-WALLPAPERER) ticagrelor (Brilinta) tablet (CANCELED) PRN, Starting on Wed11/17/24 at 0846, Until Wed11/17/24 at 0920, Intra-procedure (CATH) 0846 ($ Given - Provider: Cee Mims RN) zolpidem (Ambien) tablet 5 mg 5 mg, Oral, AT BEDTIME PRN, Insomnia, Starting on Wed11/15/24 at 1222, Until 11/19/24 at 1539, Second line for insomnia 0656 (Auto MAR Hold - Provider: Automatic Transfer Provider - Reason: Procedural Hold)0920 (MAR Unhold - Provider: Automatic Transfer Provider)0921 (Auto MAR Hold - Provider: Automatic Transfer Provider - Reason: Procedural Hold)1309 (MAR Unhold - Provider: Kiersten De La Paz MD) Linked Groups Order Group 1: SALINE LOCK, INSERT AND MAINTAIN (CANCELED) Routine, CONTINUOUS, Starting on Wed11/01/24 at 2245, Until Specified, New collection And 0.9% NaCl injection 3 mLJump to med 3 mL, Intracatheter, EVERY 8 HOURS, First dose on Wed11/01/24 at 2245, Until Discontinued, Flush peripheral IV catheter with 3 mL of normal saline every 8 hours. And 0.9% NaCl injection 1-10 mLJump to med 1-10 mL, Intracatheter, PRN, Other, peripheral line flush, Starting on Wed11/01/24 at 2231, Until 11/19/24 at 1539, Flush peripheral IV catheter with 1-10 mL of normal saline before and after medications and prn to clear blood from the line or to verify patency. documented in this encounter Additional Health Concerns Infection Onset Date Last Indicated Resolved Time COVID-19 Under Investigation 11/02/2024 11/02/2024 11/02/2024 4:24 PM CDT documented as of this encounter Care Teams Metal [employer] Worker Relationship Specialty Start Date End Date Regis Barros DO [address] [place] [id number] PCP - General Family Medicine 11/18/24 documented as of this encounter
--- OUTSIDE RECORDS SUMMARY | 2024-11-20 13:59 | XMS_ITS | Clinical Summary ---
Author Organization [facility] Address [address] [place] [address] Phone Care Team Providers Care Claim Review Medical Director Name Role Phone VicenteRegis cummins Primary Care Provider [phone] Allergies No known active allergies Medications DOBUTamine in D5W (DOBUTREX) 500 mg/250 mL (2,000 mcg/mL) Parenteral Solution Inject 357 mcg/min by intravenous injection continuously. 11/02/19 25 Active lactulose (ENULOSE) 10 gram/15 mL oral solution Take 15 mL by mouth 3 times daily. 11/03/19 25 Active sodium bicarbonate 650 mg tablet Take 2 Tablets (1,300 mg) by mouth 3 times daily. 11/03/19 25 Active tamsulosin (FLOMAX) 0.4 mg capsule Take 1 Capsule (0.4 mg) by mouth daily after supper. 11/03/19 25 Active furosemide (LASIX) 40 mg tablet Take 40 mg by mouth daily. 025 Discontinued metoprolol tartrate (LOPRESSOR) 25 mg tablet Take 25 mg by mouth 2 times daily. 025 Discontinued Active Problems Problem Noted Date Diagnosed Date Elevated liver enzymes 11/01/2024 Constipation 11/01/2024 Acute CHF 10/31/2024 Transaminitis 10/31/2024 ARF (acute renal failure) 10/31/2024 Elevated troponin 10/31/2024 Elevated d-dimer 10/31/2024 Acidosis 10/31/2024 Hyperkalemia 10/31/2024 Acute liver failure with hepatic coma 10/31/2024 Coagulopathy 10/31/2024 Acute metabolic encephalopathy 10/31/2024 Acute systolic heart failure 10/31/2024 Acute liver failure without hepatic coma 025 KASEY (acute kidney injury) 10/31/2024 Encounters Date Type Department Care Team Description 11/07/2024 External Device Data [facility] ABSTRACTION Provider, Abstract 11/07/2024 External Device Data [facility] ABSTRACTION Provider, Abstract 11/07/2024 External Device Data [facility] ABSTRACTION Provider, Abstract 10/31/2024 2:39 AM CDT - 11/01/2024 8:45 PM CDT Hospital Encounter [facility] Cardiac Medical Intensive Care Unit [address] [facility] [place] [address] Annabelle Groves MD Wheeler, Abigail, DO Wyman, Isidra Leslie MD Acute CHF (CMS/HCC) Discharge Disposition: [facility] 10/31/2024 Travel from Last 3 Months Family History Medical History Relation Name Comments Colon Cancer Neg Hx Esophageal Cancer Neg Hx Gastric Cancer Neg Hx Liver Cancer Neg Hx Pancreatic Cancer Neg Hx Social History Tobacco Use Types Packs/Day Years Used Date Smoking Tobacco: Former Cigarettes Q uit: 1999 Tobacco Cessation:Counseling Given: Not Answered Alcohol Use Standard Drinks/Week Comments Not Currently 0 (1 standard drink = 0.6 oz pur e alcohol) Sex and Gender Information Value Date Recorded Sex Assigned at Not on file Legal Sex Male 7:41 PM [employer] Gender Identity Not on file Sexual Orientation Not on file Last Filed Vital Signs Vital Sign Reading Time Taken Comments Blood Pressure 97/73 11/01/2024 7:00 PM CDT Pulse 89 11/01/2024 7:30 PM CDT Temperature 36.5 C (97.7 F) 11/01/2024 11:33 AM CDT Respiratory Rate 25 11/01/2024 7:30 PM CDT Oxygen Saturation 95% 11/01/2024 7:30 PM CDT Inhaled Oxygen Concentration - - Weight 71.4 kg (157 lb 4.8 oz) 11/01/2024 5:00 A M CDT Height 167.6 cm (5' 6) 10/31/2024 3:07 AM CDT Body Mass Index 25.39 10/31/2024 3:07 AM CDT Plan of Treatment Health Maintenance Due Date Last Done Comments DTAP/TDAP/TD VACCINES (1 - Tdap) 1967 PNEUMOCOCCAL VACCINE 50+ YEARS (1 of 2 - PCV) 06/07/18 68 ZOSTER VACCINE (1 of 2) 1998 RSV VACCINE (60+ or ) (1 - 1-dose 75+ series) 2023 INFLUENZA VACCINE (#1) 2024 Procedures Procedure Name Priority Date/Time Associated Diagnosis Comments TELEMETRY REPORT 11/08/2024 10:45 AM CDT TELEMETRY REPORT 11/07/2024 8:34 AM CDT POC GLUCOSE Routine 11/01/2024 7:40 PM CDT COMPREHENSIVE METABOLIC PANEL Routine 11/01/2024 6:27 PM CDT PHOSPHORUS Routine 11/01/2024 3:20 PM CDT MAGNESIUM LEVEL Routine 11/01/2024 3:20 PM CDT PROTIME-INR Routine 11/01/2024 3:20 PM CDT POC GLUCOSE Routine 11/01/2024 3:11 PM CDT POC GLUCOSE Routine 11/01/2024 10:52 AM CDT LACTIC ACID Routine 11/01/2024 10:[address] HEAD WO CONTRAST Pending Discharge 11/01/2024 10:36 AM CDT POC GLUCOSE Routine 11/01/2024 7:54 AM CDT ECHOCARDIOGRAM W/ CONTRAST AGENT Routine 11/01/2024 7:45 AM CDT XR CHEST PA OR AP 1 VW Pending Discharge 11/01/2024 5:42 AM CDT POC GLUCOSE Routine 11/01/2024 4:21 AM CDT CK Routine 11/01/2024 4:18 AM CDT PHOSPHORUS Routine 11/01/2024 4:18 AM CDT COMPREHENSIVE METABOLIC PANEL Routine 11/01/2024 4:18 AM CDT CBC WITH DIFFERENTIAL Routine 11/01/2024 4:18 AM CDT PROTIME-INR Routine 11/01/2024 4:18 AM CDT POC GLUCOSE Routine 11/01/2024 12:14 AM CDT LACTIC ACID Stat 11/01/2024 12:11 AM CDT PROTIME-INR Routine 11/01/2024 12:11 AM CDT POC GLUCOSE Routine 10/31/2024 8:24 PM CDT CK Routine 10/31/2024 7:59 PM CDT COMPREHENSIVE METABOLIC PANEL Routine 10/31/2024 7:59 PM CDT EXTRA TUBE (URINE DRIVER) Routine 11/01/19 25 7:49 PM CDT CREATININE, RANDOM URINE Routine 025 7:49 PM CDT SODIUM, RANDOM URINE Routine 10/31/2024 7:49 PM CDT URINALYSIS W/REFLEX MICROSCOPIC Routine 10/31/2024 7:49 PM CDT URINE CULTURE Routine 10/31/2024 7:49 PM CDT CERULOPLASMIN Routine 10/31/2024 7:46 PM CDT EBV BY PCR Routine 10/31/2024 7:46 PM CDT CMV BY PCR Routine 10/31/2024 7:46 PM CDT HIV DETECTION W/REFLX CONFIRMATION Routine 10/31/2024 7:46 PM CDT PHOSPHATIDYLETHANOL Routine 10/31/2024 7:46 PM CDT ACUTE HEPATITIS PANEL Routine 10/31/2024 7:46 PM CDT IGM Routine 10/31/2024 7:46 PM CDT IGG Routine 10/31/2024 7:46 PM CDT F-ACTIN IGG Routine 10/31/2024 7:46 PM CDT MEREDITH SCREEN W/REFLEX Routine 10/31/2024 7:46 PM CDT POC LACTIC ACID Routine 10/31/2024 6:12 PM CDT BLOOD GAS,(INCL. H+H, LYTES, GLUC) Routine 10/31/2024 6:12 PM CDT Acute congestive heart failure, unspecified heart failure type (CMS/HCC) AMMONIA LEVEL Stat 10/31/2024 5:32 PM CDT COMPREHENSIVE METABOLIC PANEL Stat 10/31/2024 5:32 PM CDT CBC WITH DIFFERENTIAL Timed Study 10/31/2024 5:32 PM CDT POC GLUCOSE Routine 10/31/2024 4:48 PM CDT TROPONIN 6 HR, 5TH GEN Timed Study 2:02 PM CDT US RENAL AND BLADDER Stat 10/31/2024 1:36 PM CDT US ABDOMEN LIMITED Routine 10/31/2024 1:32 PM CDT POC GLUCOSE Routine 10/31/2024 11:29 AM CDT POC GLUCOSE Routine 10/31/2024 10:43 AM CDT EKG 12-LEAD Routine 10/31/2024 9:44 AM CDT ACETAMINOPHEN LEVEL Routine 10/31/2024 9:18 AM CDT MAGNESIUM LEVEL Routine 10/31/2024 9:18 AM CDT T4 FREE Routine 10/31/2024 9:18 AM CDT TROPONIN 2 HR, 5TH GEN Timed Study 9:18 AM CDT D-DIMER Routine 10/31/2024 7:22 AM CDT LIPID PANEL Routine 10/31/2024 7:22 AM CDT IRON, TIBC, AND PERCENT SATURATION Routine 10/31/2024 7:22 AM CDT HEMOGLOBIN A1C Routine 10/31/2024 7:22 AM CDT TSH Routine 10/31/2024 7:22 AM CDT RENAL FUNCTION PANEL Routine 10/31/2024 7:22 AM CDT PROTIME-INR Routine 10/31/2024 7:22 AM CDT AMMONIA LEVEL Routine 10/31/2024 7:22 AM CDT BRAIN NATRIURETIC PEPTIDE, BNP OR PROBNP Routine 10/31/2024 7:22 AM CDT TROPONIN Routine 10/31/2024 7:22 AM CDT CK Routine 10/31/2024 7:22 AM CDT COMPREHENSIVE METABOLIC PANEL Routine 10/31/2024 7:22 AM CDT CBC WITH DIFFERENTIAL Routine 10/31/2024 7:[address] PRIOR STUDY Routine 10/30/2024 11:20 AM CDT X-RAY PRIOR STUDY Routine 10/30/2024 10:15 AM CDT X-RAY PRIOR STUDY Routine 10/30/2024 10:05 AM CDT from Last 3 Months Results * TELEMETRY REPORT (11/08/2024 10:45 AM CDT) Only the most recent of2 resultswithin the time period is included. us Provider Scanning ECG ORDERABLES Final Result * (ABNORMAL) POC GLUCOSE (11/01/2024 7:40 PM CDT) Only the most recent of10 resultswithin the time period is included. GLUCOSE POC 109(H) 74 - 99 mg/dL 11/01/2024 7:40 PM CDT [facility] POINT OF CARE SPECIMEN SOURCE, GLUCOSE POC Whole Blood 11/01/2024 7:40 PM CDT [facility] POINT OF CARE Blood, whole 11/01/2024 7:40 PM CDT 11/01/2024 7:46 PM CDT Isidra Garcia MD POINT OF CARE TESTING Fi nal Result [facility] POINT OF CARE CLIA # [id number] [place] [address] * (ABNORMAL) COMPREHENSIVE METABOLIC PANEL (11/01/2024 6:27 PM CDT) Only the most recent of5 resultswithin the time period is included. SODIUM 132(L) 136 - 145 mmol/L 11/01/2024 7:32 PM [facility] POTASSIUM 3.1(L) 3.4 - 5.1 mmol/L 11/01/2024 7:32 PM [facility] CHLORIDE 89(L) 98 - 107 mmol/L 11/01/2024 7:32 PM [facility] CO2 19(L) 22 - 29 mmol/L 11/01/2024 7:32 PM [facility] CALCIUM 6.1(LL) 8.6 - 10.4 mg/dL 11/01/2024 7:32 PM [facility] BUN 90(H) 6 - 20 mg/dL 11/01/2024 7:32 PM [facility] CREATININE 2.48(H) 0.67 - 1.17 mg/dL 11/01/2024 7:32 PM [facility] Comment:The GFR result is no t clinically significant on patients <18 or >70 years of age. GLUCOSE 265(H) 74 - 99 mg/dL 11/01/2024 7:32 PM [facility] TOTAL PROTEIN 5.1(L) 6.3 - 8.7 g/dL 11/01/2024 7:32 PM [facility] ALBUMIN 2.9(L) 3.5 - 5.2 g/dL 11/01/2024 7:32 PM [facility] BILIRUBIN TOTAL 1.2(H) 0.0 - 1.1 mg/dL 11/01/2024 7:32 PM [facility] ALKALINE PHOSPHATASE 128 40 - 150 U/L 11/01/2024 7:32 PM [facility] AST 4,502(H) 0 - 41 U/L 11/01/2024 7:32 PM [facility] ALT 4,965(H) 0 - 41 U/L 11/01/2024 7:32 PM [facility] GFR 26 mL/min/1. 73 sq meter 11/01/2024 7:32 PM CDT [facility] Comment:eGFR calculated with 2020 CKD-EPI equation. Vegetarian diet, extremely high or low muscle mass, and may affect results. Cystatin C with Glomerular Filtration Rate is a suitable alternative for these patients. ANION GAP 24(H) 8 - 16 mmol/L 11/01/2024 7:32 PM CDT [facility] Blood Venipuncture / Unknown 11/01/2024 6:27 PM CDT 11/01/2024 6:38 PM CDT Bridget Whitehead HEALTH SAFETY INSTRUCTOR CHEMISTRY ORDERABLES Final Result Performing Organization Address City/[facility]/ZIP Co de Phone Number [facility] CLIA# [id number] [address] [place] [address] * (ABNORMAL) PROTIME-INR (11/01/2024 3:20 PM CDT) Only the most recent of4 resultswithin the time period is included. PROTIME 33.4(H) 11.5 - 14.7 Seconds 11/01/2024 4:27 PM CDT [facility] INR 3.3(H) 0.9 - 1.1 11/01/2024 4:27 PM CDT [facility] Blood Venipuncture / Unknown 11/01/2024 3:20 PM CDT 11/01/2024 3:52 PM CDT Bridget Whitehead NP HEMATOLOGY ORDERABLES Final Result Performing Organization Address City/[facility]/ZIP Co de Phone Number [facility] CLIA# [id number] [place] [address] * (ABNORMAL) PHOSPHORUS (11/01/2024 3:20 PM CDT) Only the most recent of2 resultswithin the time period is included. PHOSPHORUS 5.7(H) 2.5 - 4.5 mg/dL 11/01/2024 4:50 PM CDT [facility] Comment:Hemolysis present. R esult may be falsely elevated. Blood Venipuncture / Unknown 11/01/2024 3:20 PM CDT 11/01/2024 4:06 PM CDT Isidra Garcia MD CHEMISTRY ORDERABLES Fin al Result Performing Organization Address City/[facility] Co de Phone Number [facility] CLIA# [id number] [place] [address] * (ABNORMAL) MAGNESIUM LEVEL (11/01/2024 3:20 PM CDT) Only the most recent of2 resultswithin the time period is included. MAGNESIUM 2.8(H) 1.6 - 2.6 mg/dL 11/01/2024 4:50 PM CDT [facility] Blood Venipuncture / Unknown 11/01/2024 3:20 PM CDT 11/01/2024 4:06 PM CDT Isidra Garcia MD CHEMISTRY ORDERABLES Fin al Result Performing Organization Address [facility] de Phone Number [facility] CLIA# [id number] [place] [address] * LACTIC ACID (11/01/2024 10:43 AM CDT) Only the most recent of2 resultswithin the time period is included. LACTIC ACID 1.9 <=2.0 mmol/L 11/01/2024 11:37 AM CDT [facility] Blood Venipuncture / Unknown 11/01/2024 10:43 AM CDT 11/01/2024 11:09 AM CDT Isidra Garcia MD CHEMISTRY ORDERABLES Fin al Result Performing Organization Address City/[facility]/ZIP Co de Phone Number [facility] CLIA# [id number] [place] [address] * CT HEAD WO CONTRAST (11/01/2024 10:36 AM CDT) Anatomical Region Laterality Modality Head Computed Tomogra phy 11/01/2024 10:2 7 AM CDT Impressions 11/01/2024 10:40 AM CDT IMPRESSION: 1. No acute intracranial process. 2. Volume loss and small vessel disease. DICTATION LOCATION: Location [address] [place] [address] Narrative 11/01/2024 10:40 AM CDT EXAM: CT HEAD WO CONTRAST DATE: 11/01/2024 HISTORY: Acute congestive heart failure, unspecified heart failure type (CMS/HCC); Mental status change, unknown cause COMPARISON: None. TECHNIQUE: Multislice axial. Radiation dose reduction technique was utilized. FINDINGS: There is no evidence of intracranial mass-effect, hemorrhage, or acute hydrocephalus. The sulci are prominent and the ventricles are symmetrically dilated indicative of volume loss. Hypodensities in the periventricular white matter are consistent with ischemic small vessel disease. The third and fourth ventricles are in the midline. There are no acute brain parenchymal changes or extra-axial fluid collections. The posterior fossa contents are unremarkable. The calvarium is intact. The visualized sinuses and mastoid air cells are not opacified. Procedure Note Amadeo Mckeon MD - 11/01/2024 EXAM: CT HEAD WO CONTRAST DATE: 11/01/2024 HISTORY: Acute congestive heart failure, unspecified heart failure type (CMS/HCC); Mental status change, unknown cause COMPARISON: None. TECHNIQUE: Multislice axial. Radiation dose reduction technique was utilized. FINDINGS: There is no evidence of intracranial mass-effect, hemorrhage, or acute hydrocephalus. The sulci are prominent and the ventricles are symmetrically dilated indicative of volume loss. Hypodensities in [...] loss and small vessel disease. DICTATION LOCATION: Location [address] [place] [address] us Bridget Whitehead HEALTH SAFETY INSTRUCTOR CT ORDERABLES Final Resul t * ECHOCARDIOGRAM W/ CONTRAST AGENT (11/01/2024 7:45 AM CDT) EJECTION FRACTION 25 INTERFACE SYSTEM 11/01/2024 7:02 AM CDT Narrative INTERFACE SYSTEM - 11/01/2024 10:23 AM CDT Transthoracic Echocardiogram Patient: Wilian Cuba Study ID: [id number] Gender: M : 1950 Age: 74 Race: BRENNEN Height 167.6cm Study Date: 11/01/2024 Weight: 71.4kg Access. #: [id number] BP: 94 / 62 *Referring Physician:* Renee Pimentel *Ordering Physician:* Renee Pimentel *Directory Compiler:* Henok Phillips [facility] event sales representative: Nurse: Indications: HF, CM-Eval of known or suspected. Dyspnea. History: PMH: No prior cardiac history. STUDY CONCLUSIONS: SUMMARY: - Left ventricle: The cavity size was severely dilated. Wall thickness was normal. Global systolic function is severely reduced. The estimated ejection fraction is 20-25%. For Epic reporting: the left ventricular ejection fraction is 25% . There is diffuse hypokinesis. - Aortic valve: There is mild calcification. There is mild thickening. There was mild stenosis. Low cardiac output also resulting in reduced opening Mild regurgitation. - Left atrium: The atrium is normal in size. - Right ventricle: The cavity size is moderately dilated. Systolic function is moderately reduced. - Directory Compiler reported Pt became combative during exam. Cardiac Anatomy: LEFT VENTRICLE: The cavity size was severely dilated. Wall thickness was normal. Global systolic function is severely reduced. The estimated ejection fraction is 20-25%. For Epic reporting: the left ventricular ejection fraction is 25% . There is diffuse hypokinesis. AORTIC VALVE: Trileaflet. There is mild calcification. There is mild thickening. There was mild stenosis. Low cardiac output also resulting in reduced opening Mild regurgitation. The mean systolic gradient is 2mm Hg. The peak systolic gradient is 4mm Hg. The LVOT to aortic valve VTI ratio is 0.44. The valve area is 1.4cm^2. The ratio of LVOT to aortic valve peak velocity is 0.52. AORTA: Aortic root: The root is normal-sized. MITRAL VALVE: Structurally normal valve. No significant regurgitation. The mean diastolic gradient is 1mm Hg. The peak diastolic gradient is 2mm Hg. LEFT ATRIUM: The atrium is normal in size. RIGHT VENTRICLE: The cavity size is moderately dilated. Systolic function is moderately reduced. PULMONIC VALVE: Structurally normal valve. No significant regurgitation. TRICUSPID VALVE: Structurally normal valve. No significant regurgitation. RIGHT ATRIUM: The atrium was normal in size. SYSTEMIC VEINS: Inferior vena cava: The IVC is normal-sized. PERICARDIUM: There is no pericardial effusion. Measurements Left ventricle Value Ref IVS, ED, LAX (N) 0.9 cm 0.6 - 1.0 IVS, ES, LAX 1.0 cm --------- IVS thickening, LAX 11 % --------- JIM, LAX (N) 5.8 cm 4.2 - 5.8 JIM/bsa, LAX (H) 3.2 cm/m^2 2.2 - 3.0 JIM, LAX chord (H) 6.2 cm 4.2 - 5.8 ESD, LAX chord (H) 5.8 cm 2.5 - 4.0 JIM/bsa, LAX chord (H) 3.4 cm/m^2 2.2 - 3.0 ESD/bsa, LAX chord (H) 3.2 cm/m^2 1.3 - 2.1 FS, LAX chord (L) 6 % 25 - 43 IVS, ED (N) 0.9 cm 0.6 - 1.0 IVS, ES 1.0 cm --------- IVS thickening 11 % --------- PW, ED (N) 0.8 cm 0.6 - 1.0 PW, ES 1.0 cm --------- EDV, 2-p (H) 240 ml 62 - 150 ESV, 2-p (H) 178 ml 21 - 61 EF, 2-p (L) 26 % 52 - 72 SV, 2-p 62 ml --------- SV/bsa, 2-p 34.3 ml/m^2 --------- E', med anay, TDI (L) 3.1 cm/sec >=7.0 E/e', med anay, TDI 23 --------- LVOT Value Ref Diam, S 2.0 cm --------- Area 3.1 cm^2 --------- Peak jermaine, S 0.52 m/sec --------- VTI, S 7.2 cm --------- Right ventricle Value Ref JIM minor ax, A4C base (H) 4.6 cm 2.5 - 4.1 JIM minor ax, A4C mid (N) 3.3 cm 1.9 - 3.5 JIM major ax, A4C (H) 9.4 cm 5.9 - 8.3 TAPSE, MM (L) 1.2 cm >=1.7 S' lateral (L) 6.4 cm/sec >=9.5 Left atrium Value Ref AP dim, ES (N) 3.7 cm 3.0 - 4.0 AP dim index, ES (N) 2.0 cm/m^2 1.5 - 2.3 SI dim, A4C 7.3 cm --------- Area ES, A4C (H) 22 cm^2 <=20 Area/bsa ES, A4C 12.04 cm^2/m^2 --------- SI dim, A2C 6.3 cm --------- SI dim, shorter 6.3 cm --------- Vol, ES, 1-p A2C (H) 64 ml 18 - 58 Vol/bsa, ES, 1-p A2C (N) 35 ml/m^2 11 - 43 Vol, ES, 2-p 61 ml --------- Vol/bsa, ES, 2-p (N) 33 ml/m^2 16 - 34 LA/Ao root ratio 0.97 --------- Right atrium Value Ref SI dim, ES, A4C (N) 5.2 cm 3.4 - 5.3 SI dim/bsa, ES, A4C (N) 2.9 cm/m^2 1.8 - 3.0 Area, ES, A4C (N) 15 cm^2 10 - 18 Vol, ES, 1-p A4C 36 ml --------- Vol/bsa, ES, 1-p A4C (N) 20 ml/m^2 11 - 39 Aortic valve Value Ref Peak v, S 1 m/sec --------- Mean v, S 0.71 m/sec --------- VTI, S 16.3 cm --------- Mean grad, S 2 mm Hg --------- Peak grad, S 4 mm Hg --------- LVOT/AV, VTI ratio 0.44 --------- MABLE, VTI 1.4 cm^2 --------- MABLE/bsa, VTI 0.76 cm^2/m^2 --------- LVOT/AV, Vpeak ratio 0.52 --------- MABLE, Vmax 1.6 cm^2 --------- MABLE/bsa, Vmax 0.91 cm^2/m^2 --------- AR PHT 586 ms --------- Mitral valve Value Ref Peak E 0.71 m/sec --------- Peak A 0.24 m/sec --------- Mean grad, D 1 mm Hg --------- Peak grad, D 2 mm Hg --------- Peak E/A ratio 3 --------- Pulmonic valve Value Ref Peak v, S 0.56 m/sec --------- Peak grad, S 1 mm Hg --------- Aortic root Value Ref Root diam, 3.8 cm --------- Ascending aorta Value Ref AAo AP diam, S 4.0 cm --------- AAo AP diam/bsa, S 2.2 cm/m^2 --------- Systemic veins Value Ref Estimated RA pressure 5 mm Hg --------- Legend: (L) and (H) emily values outside specified reference range. (N) larios values inside specified reference range. Procedure data: [facility] No prior study was available for comparison. Procedure information: A transthoracic echocardiogram was performed. Image quality was poor. The study was technically limited due to poor acoustic window availability, restricted patient mobility, and agitation. Scanning was performed from the parasternal, apical, and subcostal acoustic windows. Intravenous contrast (Definity) was administered to enhance endocardial border detection that was not seen in two consecutive segments due to suboptimal baseline images and opacify the LV. Transthoracic echocardiogram. Complete 2D, complete spectral Doppler, and color Doppler. Birthdate: Patient birthdate: 1950. Age: Patient is 74year(s) old. Sex: gender: male. Height: 167.6cm. 66in. Weight: 71.4kg. 157.3lb. Body mass index: 25.4kg/m^2. Body surface area: 1.81m^2. Heart rate: 64bpm. Blood pressure: 94/62 Patient status: Inpatient. Study date: Study date: 11/01/2024. Study time: 07:02 AM. Location: Bedside. Prepared and Electronically Authenticated Juvencio Medrano M.D. [id number] Procedure Note Juvencio Medrano MD - 11/01/2024 Transthoracic Echocardiogram Patient: Wilian CubaN: [id number] Study ID: [id number] Gender: M : 1950 Age: 74 Race: BRENNEN Height 167.6cm Study Date: 11/01/2024 Weight: 71.4kg Access. #: [id number] BP: 94 / 62 *Referring Physician:* Renee Pimentel *Ordering Physician:* Renee Pimentel *Directory Compiler:* Henok Phillips [facility] event sales representative: Nurse: Indications: HF, CM-Eval of known or suspected. Dyspnea. History: PMH: No prior cardiac history. STUDY CONCLUSIONS: SUMMARY: - Left ventricle: The cavity size was severely dilated. Wall thicknesswas normal. Global systolic function is severely reduced. The estimatedejection fraction is 20-25%. For Epic reporting: the left ventricular ejection fraction is 25% . There is diffuse hypokinesis. - Aortic valve: There is mild calcification. There is mild thickening.There was mild stenosis. Low cardiac output also resulting in reduced openingMild regurgitation. - Left atrium: The atrium is normal in size. - Right ventricle: The cavity size is moderately dilated. Systolicfunction is moderately reduced. - Directory Compiler reported Pt became combative during exam. Cardiac Anatomy: LEFT VENTRICLE: The cavity size was severely dilated. Wall thicknesswas normal. Global systolic function is severely reduced. The estimatedejection fraction is 20-25%. For Epic reporting: the left ventricular ejectionfraction is 25% . There is diffuse hypokinesis. AORTIC VALVE: Trileaflet. There is mild calcification. There is mild thickening. There was mild stenosis. Low cardiac output also resultingin reduced opening Mild regurgitation. The mean systolic gradient is 2mm Hg.The peak systolic gradient is 4mm Hg. The LVOT to aortic valve VTI ratio is0.44. The valve area is 1.4cm^2. The ratio of LVOT to aortic valve peak velocityis 0.52. AORTA: Aortic root: The root is normal-sized. MITRAL VALVE: Structurally normal valve. No significantregurgitation. The mean diastolic gradient is 1mm Hg. The peak diastolic gradient is 2mmHg. LEFT ATRIUM: The atrium is normal in size. RIGHT VENTRICLE: The cavity size is moderately dilated. Systolic functionis moderately reduced. PULMONIC VALVE: Structurally normal valve. No significantregurgitation. TRICUSPID VALVE: Structurally normal valve. No significantregurgitation. RIGHT ATRIUM: The atrium was normal in size. SYSTEMIC VEINS: Inferior vena cava: The IVC is normal-sized. PERICARDIUM: There is no pericardial effusion. Measurements Left ventricle Value Ref IVS, ED, LAX (N) 0.9 cm 0.6 - 1.0 IVS, ES, LAX 1.0 cm --------- IVS thickening, LAX 11 % --------- JIM, LAX (N) 5.8 cm 4.2 - 5.8 JIM/bsa, LAX (H) 3.2 cm/m^2 2.2 - 3.0 JIM, LAX chord (H) 6.2 cm 4.2 - 5.8 ESD, LAX chord (H) 5.8 cm 2.5 - 4.0 JIM/bsa, LAX chord (H) 3.4 cm/m^2 2.2 - 3.0 ESD/bsa, LAX chord (H) 3.2 cm/m^2 1.3 - 2.1 FS, LAX chord (L) 6 % 25 - 43 IVS, ED (N) 0.9 cm 0.6 - 1.0 IVS, ES 1.0 cm --------- IVS thickening 11 % --------- PW, ED (N) 0.8 cm 0.6 - 1.0 PW, ES 1.0 cm --------- EDV, 2-p (H) 240 ml 62 - 150 ESV, 2-p (H) 178 ml 21 - 61 EF, 2-p (L) 26 % 52 - 72 SV, 2-p 62 ml --------- SV/bsa, 2-p 34.3 ml/m^2 --------- E', med anay, TDI (L) 3.1 cm/sec >=7.0 E/e', med anay, TDI 23 --------- LVOT Value Ref Diam, S 2.0 cm --------- Area 3.1 cm^2 --------- Peak jermaine, S 0.52 m/sec --------- VTI, S 7.2 cm --------- Right ventricle Value Ref JIM minor ax, A4C base (H) 4.6 cm 2.5 - 4.1 JIM minor ax, A4C mid (N) 3.3 cm 1.9 - 3.5 JIM major ax, A4C (H) 9.4 cm 5.9 - 8.3 TAPSE, MM (L) 1.2 cm >=1.7 S' lateral (L) 6.4 cm/sec >=9.5 Left atrium Value Ref AP dim, ES (N) 3.7 cm 3.0 - 4.0 AP dim index, ES (N) 2.0 cm/m^2 1.5 - 2.3 SI dim, A4C 7.3 cm --------- Area ES, A4C (H) 22 cm^2 <=20 Area/bsa ES, A4C 12.04 cm^2/m^2 --------- SI dim, A2C 6.3 cm --------- SI dim, shorter 6.3 cm --------- Vol, ES, 1-p A2C (H) 64 ml 18 - 58 Vol/bsa, ES, 1-p A2C (N) 35 ml/m^2 11 - 43 Vol, ES, 2-p 61 ml --------- Vol/bsa, ES, 2-p (N) 33 ml/m^2 16 - 34 LA/Ao root ratio 0.97 --------- Right atrium Value Ref SI dim, ES, A4C (N) 5.2 cm 3.4 - 5.3 SI dim/bsa, ES, A4C (N) 2.9 cm/m^2 1.8 - 3.0 Area, ES, A4C (N) 15 cm^2 10 - 18 Vol, ES, 1-p A4C 36 ml --------- Vol/bsa, ES, 1-p A4C (N) 20 ml/m^2 11 - 39 Aortic valve Value Ref Peak v, S 1 m/sec --------- Mean v, S 0.71 m/sec --------- VTI, S 16.3 cm --------- Mean grad, S 2 mm Hg --------- Peak grad, S 4 mm Hg --------- LVOT/AV, VTI ratio 0.44 --------- MABLE, VTI 1.4 cm^2 --------- MABLE/bsa, VTI 0.76 cm^2/m^2 --------- LVOT/AV, Vpeak ratio 0.52 --------- MABLE, Vmax 1.6 cm^2 --------- MABLE/bsa, Vmax 0.91 cm^2/m^2 --------- AR PHT 586 ms --------- Mitral valve Value Ref Peak E 0.71 m/sec --------- Peak A 0.24 m/sec --------- Mean grad, D 1 mm Hg --------- Peak grad, D 2 mm Hg --------- Peak E/A ratio 3 --------- Pulmonic valve Value Ref Peak v, S 0.56 m/sec --------- Peak grad, S 1 mm Hg --------- Aortic root Value Ref Root diam, 3.8 cm --------- Ascending aorta Value Ref AAo AP diam, S 4.0 cm --------- AAo AP diam/bsa, S 2.2 cm/m^2 --------- Systemic veins Value Ref Estimated RA pressure 5 mm Hg --------- Legend: (L) and (H) emily values outside specified reference range. (N) larios values inside specified reference range. Procedure data: [facility] No prior study was available for comparison. Procedure information: A transthoracic echocardiogram was performed. Image qualitywas poor. The study was technically limited due to poor acoustic window availability, restricted patient mobility, and agitation. Scanning was performed from the parasternal, apical, and subcostal acoustic windows. Intravenous contrast (Definity) was administered to enhance endocardialborder detection that was not seen in two consecutive segments due tosuboptimal baseline images and opacify the LV. Transthoracicechocardiogram. Complete 2D, complete spectral Doppler, and color Doppler. Birthdate: Patient birthdate: 1950. Age: Patient is 74year(s) old. Sex: gender: male. Height: 167.6cm. 66in. Weight: 71.4kg. 157.3lb. Bodymass index: 25.4kg/m^2. Body surface area: 1.81m^2. Heart rate:64bpm. Blood pressure: 94/62 Patient status: Inpatient. Study date:Study date: 11/01/2024. Study time: 07:02 AM. Location: Bedside. Preparedand Electronically Authenticated Juvencio Medrano M.D. [id number] us Renee Pimentel NP US ORDERABLES Final Result Performing Organization Address City/State/[facility] Co de Phone Number INTERFACE SYSTEM Refer to clinic/hospital department * XR CHEST PA OR AP 1 VW (11/01/2024 5:42 AM CDT) Anatomical Region Laterality Modality Chest Computed Radiogr aphy 11/01/2024 5:43 AM CDT Impressions 11/01/2024 7:35 AM CDT IMPRESSION: Bilateral pulmonary nodules are not clearly changed Cardiomegaly and pulmonary vascular congestion Tortuous calcified aortic arch. DICTATION LOCATION: Location [address] [place] [address] 11/01/2024 7:35 AM CDT CHEST PORTABLE AP UPRIGHT VIEW DATE: 11/01/2024 [...] in the left lung. INCIDENTAL FINDINGS: None. Procedure Note Amadeo Puckett MD - 11/01/2024 CHEST PORTABLE AP UPRIGHT VIEW DATE: [...] are not clearly changed Cardiomegaly and pulmonary vascular congestion Tortuous calcified aortic arch. DICTATION LOCATION: Location [address] [place] [address] us Bridget Whitehead NP DIAGNOSTIC IMAGING ORDERABL ES Final Result * (ABNORMAL) CBC WITH DIFFERENTIAL (11/01/2024 4:18 AM CDT) Only the most recent of3 resultswithin the time period is included. WBC 15.8(H) 4.0 - 9.8 K/uL 11/01/2024 5:03 AM CDT [facility] NRBCS 1 % 11/01/2024 5:03 AM CDT [facility] RBC 4.38(L) 4.50 - 5.40 M/uL 11/01/2024 5:03 AM T [facility] HEMOGLOBIN 12.9(L) 13.6 - 16.5 g/dL 11/01/2024 5:03 AM T [facility] HEMATOCRIT 39.8(L) 40.0 - 48.0 % 11/01/2024 5:03 AM T [facility] MCV 90.9 82.0 - 99.0 fL 11/01/2024 5:03 AM T [facility] MCH 29.5 27.2 - 32.6 pg 11/01/2024 5:03 AM T [facility] MCHC 32.4 31.5 - 35.5 g/dL 11/01/2024 5:03 AM T [facility] RDW 14.0 11.5 - 14.5 % 11/01/2024 5:03 AM T [facility] RDW-STDEV 46.6 37.1 - 48.7 fL 11/01/2024 5:03 AM CDT [facility] PLATELETS 157 140 - 350 K/uL 11/01/2024 5:03 AM CDT [facility] MPV 10.7 9.3 - 12.4 fL 11/01/2024 5:03 AM CDT [facility] NEUTROPHILS 89 % 11/01/2024 5:03 AM CDT [facility] LYMPHOCYTES 7 % 11/01/2024 5:03 AM CDT [facility] MONOCYTES 2 % 11/01/2024 5:03 AM CDT [facility] EOSINOPHILS 0 % 11/01/2024 5:03 AM CDT [facility] BASOPHILS 0 % 11/01/2024 5:03 AM CDT [facility] IMMATURE GRANULOCYTES 1 % 11/01/2024 5:03 AM CDT [facility] Comment:IG (Immature Granulo cyte) count includes Metamyelocytes, Myelocytes, and Promyelocytes NEUTROPHIL ABSOLUTE 14.09(H) 1.90 - 7.00 K/uL 11/01/2024 5:03 AM CDT [facility] LYMPHOCYTE ABSOLUTE 1.15 0.70 - 4.50 K/uL 11/01/2024 5:03 AM CDT [facility] MONOCYTE ABSOLUTE 0.37 0.10 - 1.30 K/uL 11/01/2024 5:03 AM T [facility] EOSINOPHIL ABSOLUTE 0.02 0.00 - 0.70 K/uL 11/01/2024 5:03 AM CDT [facility] BASOPHILS ABSOLUTE 0.04 0.00 - 0.20 K/uL 11/01/2024 5:03 AM CDT [facility] IMMATURE GRANULOCYTES ABSOLUTE 0.15(H) 0.00 - 0.03 K/uL 11/01/2024 5:03 AM [facility] Blood Venipuncture / Unknown 11/01/2024 4:18 AM CDT 11/01/2024 4:58 AM CDT us Bridget Whitehead HEALTH SAFETY INSTRUCTOR HEMATOLOGY ORDERABLES Final Result Performing Organization Address [facility]/ZIP Co de Phone Number [facility] [id number] [place] [address] * (ABNORMAL) CK (11/01/2024 4:18 AM CDT) Only the most recent of3 resultswithin the time period is included. CK 5,022(H) 20 - 200 U/L 11/01/2024 9:03 AM CDT [facility] Blood Venipuncture / Unknown 11/01/2024 4:18 AM CDT 11/01/2024 4:56 AM CDT us David Farmer HEALTH SAFETY INSTRUCTOR CHEMISTRY ORDERABLES Final Re sult Performing Organization Address [facility]/ZIP Co de Phone Number [facility] CLIA# [id number] [address] [place] [address] * EXTRA TUBE (URINE DRIVER) (10/31/2024 7:49 PM CDT) Urine URINE SPECIMEN OBTAINED BY CLEAN CATCH PROCEDURE / Unknown Collection / Unknown 10/31/2024 7:49 PM CDT 10/31/2024 7:55 PM CDT Renee Pimentel HEALTH SAFETY INSTRUCTOR URINE ORDERABLES Kaitlynn l Result Performing Organization Address City/[facility]/ZIP Co de Phone Number [facility] [id number] [place] [address] * SODIUM, RANDOM URINE (10/31/2024 7:49 PM CDT) SODIUM, URINE 23 mmol/L 10/31/2024 8:21 PM CDT [facility] Comment:Reference range not established Urine URINE SPECIMEN OBTAINED BY CLEAN CATCH PROCEDURE / Unknown Collection / Unknown 10/31/2024 7:49 PM CDT 10/31/2024 7:55 PM CDT Thomas Santamaria MD URINE ORDERABLES Final Result Performing Organization Address [facility]/ZIP Co de Phone Number [facility]# [id number] [address] [place] [address] * CREATININE, RANDOM URINE (10/31/2024 7:49 PM CDT) CREATININE, URINE 128.0 40.0 - 278.0 mg/dL 10/31/2024 8:21 PM CDT [facility] Comment:Reference Range vari es with fluid intake and diet. Urine URINE SPECIMEN OBTAINED BY CLEAN CATCH PROCEDURE / Unknown Collection / Unknown 10/31/2024 7:49 PM CDT 10/31/2024 7:55 PM CDT Thomas Santamaria MD URINE ORDERABLES Final Result Performing Organization Address [facility] Co de Phone Number [facility] [id number] [address] [place] [address] * (ABNORMAL) URINALYSIS WITH REFLEX MICROSCOPIC (10/31/2024 7:49 PM CDT) COLOR UA Alanna(A) Pale to Dark Yellow 10/31/2024 8:08 PM CDT [facility] CLARITY UA Cloudy(A) Clear 10/31/2024 8:08 PM CDT [facility] SPECIFIC GRAVITY UA 1.017 1.003 - 1.035 10/31/2024 8:08 PM CDT [facility] PH UA 5.0 5.0 - 8.0 10/31/2024 8:08 PM CDT [facility] LEUKOCYTE ESTERASE UA Negative Negative 10/31/2024 8:08 PM CDT [facility] NITRITE UA Negative Negative 10/31/2024 8:08 PM CDT [facility] PROTEIN UA 2+(A) Negative 10/31/2024 8:08 PM CDT [facility] GLUCOSE UA Negative Negative 10/31/2024 8:08 PM CDT [facility] KETONES UA Negative Negative 10/31/2024 8:08 PM CDT [facility] UROBILINOGEN UA Normal <2.0 mg/dL 8:08 PM CDT [facility] BILIRUBIN UA Negative Negative 10/31/2024 8:08 PM CDT [facility] BLOOD UA 2+(A) Negative 10/31/2024 8:08 PM CDT [facility] WBC UA 26-50(A) 0 - 2 /hpf 10/31/2024 8:08 PM CDT [facility] RBC UA 3-5(A) 0 - 2 /hpf 10/31/2024 8:08 PM CDT [facility] BACTERIA UA 1+(A) Negative /hpf 10/31/2024 8:08 PM CDT [facility] EPITHELIAL CELLS, URINE 0-5 0 - 5 /hpf 10/31/2024 8:08 PM CDT [facility] HYALINE CAST 6-10(A) None Seen, 0-2 /lpf 10/31/2024 8:08 PM CDT [facility] YEAST, BUDDING Present(A) Absent 10/31/2024 8:08 PM CDT [facility] Ascorbic Acid UA Positive(A) Negative 025 8:08 PM CDT [facility] Urine URINE SPECIMEN OBTAINED BY CLEAN CATCH PROCEDURE / Unknown Collection / Unknown 10/31/2024 7:49 PM CDT 10/31/2024 7:55 PM CDT us Renee Pimentel HEALTH SAFETY INSTRUCTOR URINE ORDERABLES Kaitlynn l Result [facility] CLIA# [id number] [place] [address] * URINE CULTURE (10/31/2024 7:49 PM CDT) CULTURE Polymicrobial growth consistent with normal urethral alexander and/or colonizing bacteria 11/02/2024 7:59 AM CDT [facility] Urine URINE SPECIMEN OBTAINED BY CLEAN CATCH PROCEDURE / Unknown Collection / Unknown 10/31/2024 7:49 PM CDT 10/31/2024 7:55 PM CDT us David Farmer NP MICROBIOLOGY - GENERAL ORDERA BLES Final Result [facility] CLIA# [id number] [address] [place] [address] * F-ACTIN IGG (10/31/2024 7:46 PM CDT) SMOOTH MUSCLE AB (ACTIN) IGG <20 <20 U 11/03/2024 9:41 PM CDT [facility] Comment: Reference Range: <20 U: Negative >or=20 U: Positive Antibodies recognizing actin are the main component of smooth muscle antibodies associated with auto- immune liver disease. Actin antibodies are found in approximately 75% of patients with autoimmune hepatitis (AIH) type 1, approximately 65% of patients with autoimmune cholangitis, approximately 30% of patients with primary biliary cirrhosis and approximately 2% of healthy controls. High values are closely correlated with AIH type 1. Blood Venipuncture / Unknown 10/31/2024 7:46 PM CDT 10/31/2024 10:00 PM CDT Narrative [facility] - 11/03/2024 9:41 PM CDT Performing Organization Information: Site ID: AMD Name: [facility] Address: [address] [place] [address] Dr [place] Director: Solis Diaz M.D.,PhD us Danny Malloy DO CHEMISTRY ORDERABLES Final Resul t [facility] [phone] * PHOSPHATIDYLETHANOL (10/31/2024 7:46 PM CDT) [facility] PEt 16:0/18:1 (POPEth) NEGATIVE <20 ng/mL 11/04/2024 8:02 AM CDT [facility] PEt 16:0/18:2 (PLPEth) NEGATIVE <20 ng/mL 11/04/2024 8:02 AM CDT [facility] PEt Comments SEE COMMENT 11/04/2024 8:02 AM CDT [facility] Comment:See LDT Notes COMMENT TOXICOLOGY SEE COMMENT 11/04 8:02 AM CDT [facility] Comment: This drug testing is for medical treatment only. Analysis was performed as non-forensic testing and these results should be used only by healthcare providers to render diagnosis or treatment, or to monitor progress of medical conditions. LDT Notes: Confirmation tests were developed and their analytical performance characteristics have been determined by [facility]. It has not been cleared or approved by the FDA. This assay has been validated pursuant to the CLIA regulations and is used for clinical purposes. Healthcare Providers needing Interpretation assistance, please contact us at [phone] ( ) M-F, 8am to 10pm EST Blood Venipuncture / Unknown 10/31/2024 7:46 PM CDT 10/31/2024 9:55 PM CDT Narrative [facility] - 11/04/2024 8:02 AM CDT Performing Organization Information: Site ID: JASON Name: [facility] [place] Address: [address] [facility] [address] [place] Director: Solis Diaz M.D.,PhD Site ID: AMY Name: [facility] Address: [address] [address] Director: Ruben Rowan MD us Danny Malloy DO CHEMISTRY ORDERABLES Final Resul t [facility] [phone] * EBV BY PCR (10/31/2024 7:46 PM CDT) Pathologist [facility] EBV DNA, QN PCR Not Detected IU/mL 11/03/2024 8:32 PM CDT [facility] LOG10 EBV DNA QN PCR Not Detected Log IU/mL 11/03/2024 8:32 PM CDT [facility] Comment: Reference Range: Not Detected For additional information, please refer to http://education.Mavrx/faq/CMVandEBVPCR (This link is being provided for informational/ educational purposes only.) Blood Venipuncture / Unknown 10/31/2024 7:46 PM CDT 10/31/2024 10:00 PM CDT Narrative [facility] - 11/03/2024 8:32 PM CDT Performing Organization Information: Site ID: AMD Name: [facility] Address: [address] [place] [address] [place] [address] Director: Solis Diaz M.D.,PhD us Danny Malloy DO CHEMISTRY ORDERABLES Final Resul t Performing Organization Address [facility]/ZIP Co de Phone Number [facility] [phone] * HIV DETECTION W/REFLX CONFIRMATION (10/31/2024 7:46 PM CDT) [facility] HIV-1 AND 2 ABS AND HIV-1 AG Non-reacti ve Non-reacti ve 11/01/2024 2:53 AM CDT [facility] Blood Venipuncture / Unknown 10/31/2024 7:46 PM CDT 10/31/2024 10:00 PM CDT Danny Malloy DO CHEMISTRY ORDERABLES Final Resul t Performing Organization Address City/[facility]/ZIP Co de Phone Number [facility] [employer] [facility] CLIA# [id number] [place] [address] * ACUTE HEPATITIS PANEL (10/31/2024 7:46 PM CDT) HEPATITIS B SURFACE AG NON-REACT JUAN CARLOS Non-react juan carlos 10/31/2024 8:38 PM CDT [facility] Comment:A non-reactive test result does not exclude the possibility of exposure to or infection with hepatitis B. HEPATITIS B CORE IGM NON-REACT JUAN CARLOS Non-react juan carlos 10/31/2024 8:38 PM CDT [facility] Comment:IgM antibodies to HB c were not detected; does not exclude the possibility of exposure to HBV. HEPATITIS A IGM Non-react juan carlos Non-react juan carlos 10/31/2024 8:38 PM CDT [facility] Comment:A negative test resu lt does not exclude the possibility of exposure to Hepatitis A virus. HEPATITIS C AB NON-REACT JUAN CARLOS Non-react juan carlos 10/31/2024 8:38 PM CDT [facility] Comment:Antibodies to HCV we re not detected, does not exclude the possibility of exposure to HCV. Blood Venipuncture / Unknown 10/31/2024 7:46 PM CDT 10/31/2024 7:58 PM CDT Danny Malloy DO CHEMISTRY ORDERABLES Final Resul t [facility]# [id number] [place] [address] * CMV BY PCR (10/31/2024 7:46 PM CDT) CYTOMEGALOVIRUS, QUANT IU/ML Not Detected IU/mL 11/04/2024 1:42 PM CDT [facility] CYTOMEGALOVIRUS BY PCR, QUANT LOG IU/ML Not Detected log IU/mL 11/04/2024 1:42 PM CDT [facility] Comment: REFERENCE RANGE: NOT DETECTED For additional information, please refer to http://education.Biocycle.com/faq/CMVandEBVPCR (This link is being provided for informational/ educational purposes only.) Blood Venipuncture / Unknown 10/31/2024 7:46 PM CDT 10/31/2024 7:55 PM CDT Narrative [facility] - 11/04/2024 1:42 PM CDT Performing Organization Information: Site ID: AMD Name: [facility] [place] Address: [address] [place] [address] Dr [place], [place] Director: Solis Diaz M.D.,PhD Danny Malloy DO CHEMISTRY ORDERABLES Final Resul t [facility] [phone] * (ABNORMAL) CERULOPLASMIN (10/31/2024 7:46 PM CDT) CERULOPLASMIN 37.0(H) 15.0 - 30.0 mg/dL 11/01/2024 2:43 AM CDT [facility] Blood Venipuncture / Unknown 10/31/2024 7:46 PM CDT 10/31/2024 10:00 PM CDT Isabelmiradha lorene DO CHEMISTRY ORDERABLES Final Resul t Performing Organization Address City/[facility]/ZIP Co de Phone Number [facility] [employer] [facility] CLIA# [id number] [address] [facility] BETTYESAN [facility] [place] [address] * MEREDITH SCREEN W/REFLEX (10/31/2024 7:46 PM CDT) MEREDITH SCREEN NEGATIVE NEGATIVE 11/03/2024 9:41 PM CDT [facility] Comment: MEREDITH IFA is a first line screen for detecting the presence of up to approximately 150 autoantibodies in various autoimmune diseases. A negative MEREDITH IFA result suggests an MEREDITH-associated autoimmune disease is not present at this time, and does not reflex further. If there is high clinical suspicion for Sjogren's syndrome, testing for anti-SS-A/Ro antibody should be considered. Anti-Roxana-1 antibody should be considered for clinically suspected inflammatory myopathies. AC-0: Negative International Consensus on MEREDITH Patterns (https://doi.org/10.1515/rkap-3758-1540) For additional information, please refer to http://education.American Hometec/faq/JBP090 (This link is being provided for informational/ educational purposes only.) Blood Venipuncture / Unknown 10/31/2024 7:46 PM CDT 10/31/2024 10:00 PM CDT Narrative [facility] - 11/03/2024 9:41 PM CDT Performing Organization Information: Site ID: [place] [facility] Address: [address] [place] [id number] Director: Ruben Rowan MD Performing Organization Information: Site ID: [place] Name: [facility] Address: [address] [place] [id number] Director: Ruben Rowan MD us Danny Mlaloy DO CHEMISTRY ORDERABLES Edited Resu lt - Final Performing Organization Address City/[facility]/ZIP Co de Phone Number [facility] [phone] * (ABNORMAL) IGM (10/31/2024 7:46 PM CDT) IGM 31(L) 40 - 230 mg/dL 11/01/2024 2:07 PM CDT [facility] Comment: Performed by [facility]: [address] [place] [address]. Blood Venipuncture / Unknown 10/31/2024 7:46 PM CDT 10/31/2024 10:00 PM CDT Danny Malloy DO CHEMISTRY ORDERABLES Final Resul t Performing Organization Address City/[facility]/ZIP Co de Phone Number [facility] [employer] [facility] CLIA# [id number] [address] [place] [address] * IGG (10/31/2024 7:46 PM CDT) IGG 1,095 700 - 1,600 mg/dL 11/01/2024 2:42 AM CDT [facility] Blood Venipuncture / Unknown 10/31/2024 7:46 PM CDT 10/31/2024 10:00 PM CDT Danny Malloy DO CHEMISTRY ORDERABLES Final Resul t [facility] CLIA# [id number] [address] [place] [address] * (ABNORMAL) POC LACTIC ACID (10/31/2024 6:12 PM CDT) Pathologist [facility] LACTIC ACID POC 3.1(H) <=2.0 mmol/L 10/31/2024 6:12 PM CDT [facility] SPECIMEN SOURCE, GASES POC Arterial 10/31/2024 6:12 PM CDT [facility] [employer] [facility] Blood 10/31/2024 6:12 PM CDT 10/31/2024 6:14 PM CDT Linda Rowe DO POINT OF CARE TESTING Final R esult [facility] CLIA# [id number] [address] [place] [address] * (ABNORMAL) BLOOD GAS,(INCL. H+H, LYTES, GLUC) (10/31/2024 6:12 PM CDT) Pathologist [facility] PH BLOOD POC 7.43 7.35 - 7.45 10/31/2024 6:12 PM CDT [facility] [employer] [facility] PCO2 POC 35 35 - 48 mm Hg 10/31/2024 6:12 PM CDT [facility] PO2 POC 91 83 - 108 mm Hg 10/31/2024 6:[facility] [address] [facility] HCO3 (CALC) POC 23 22 - 26 mmol/L 10/31/2024 6:12 PM [facility] O2 SATURATION POC 97 94 - 98 % 025 6:12 PM [facility] BASE EXCESS POC -1 -2 - 3 mmol/L 10/31/2024 6:12 PM [facility] HEMOGLOBIN POC 13.0(L) 13.6 - 16.5 g/dL 10/31/2024 6:12 PM [facility] HEMATOCRIT POC 39(L) 40 - 48 % 10/31/2024 6:12 PM [facility] Comment:Estimated Value GLUCOSE POC 181(H) 74 - 99 mg/dL 10/31/2024 6:12 PM [facility] SODIUM POC 129(L) 135 - 145 mmol/L 10/31/2024 6:12 PM [facility] POTASSIUM POC 4.5 3.5 - 4.9 mmol/L 10/31/2024 6:12 PM [facility] CHLORIDE POC 92(L) 98 - 107 mmol/L 10/31/2024 6:12 PM [facility] CALCIUM IONIZED POC 3.4(L) 4.8 - 5.2 mg/dL 10/31/2024 6:12 PM [facility] PH TEMP CORRECT 7.43 7.35 - 7.45 10/31/2024 6:12 PM [facility] PCO2 TEMP CORRECT 35 35 - 48 mm Hg 10/31/2024 6:12 PM [facility] PO2 TEMP CORRECT 91 83 - 108 mm Hg 10/31/2024 6:12 PM [facility] SPECIMEN SOURCE, GASES POC Arterial 10/31/2024 6:12 PM [facility] FIO2 21.0 21.0 - 100.0 % 10/31/2024 6:12 PM [facility] P/F RATIO POC 433 10/31/2024 6:12 PM CDT [facility] Comment: P/F Ratio Interpretation ARDS SEVERITY PaO2/FiO2 Mild 200-300 Moderate 100-200 Severe <100 Blood, arterial 10/31/2024 6 :12 PM CDT 10/31/2024 6:14 PM CDT us Linda Rowe DO ABG ORDERABLES Final Result Performing Organization Address City/[facility]/ZIP Co de Phone Number [id number] [phone] [place] [address] * AMMONIA LEVEL (10/31/2024 5:32 PM CDT) Only the most recent of2 resultswithin the time period is included. AMMONIA 39.3 16.0 - 60.0 umol/L 10/31/2024 6:07 PM CDT [facility] Blood, venous 10/31/2024 5:3 2 PM CDT 10/31/2024 5:40 PM CDT Linda Rowe DO CHEMISTRY ORDERABLES Final Re sult Performing Organization Address [facility]/ZIP Co de Phone Number [facility] [id number] [place] [address] * (ABNORMAL) TROPONIN 6 HR, 5TH GEN (10/31/2024 2:02 PM CDT) TROPONIN T, 6 HR 5TH GEN 103(HH) <=15 ng/L 10/31/2024 3:35 PM CDT [facility] Blood Venipuncture / Unknown 10/31/2024 2:02 PM CDT 10/31/2024 2:40 PM CDT Narrative [facility] - 10/31/2024 3:35 PM CDT Troponin elevated. Unable to calculate delta. Delay in collection of timed specimen beyond recommended collection interval. Results must be interpreted in clinical context. us Renee Pimentel NP CHEMISTRY ORDERABLES Final Result [facility]# [id number] [place] [address] * US RENAL AND BLADDER (10/31/2024 1:36 PM CDT) Anatomical Region Laterality Modality Abdomen Ultrasound 10/31/2024 1:36 PM CDT Impressions 10/31/2024 1:43 PM CDT IMPRESSION: 1. There appears to be a solid hypoechoic left renal mass. Consider further evaluation with either a without and with contrast CT urogram or without and with contrast abdominal MRI. 2. Subcentimeter left renal cyst. DICTATION LOCATION: [facility] Narrative 10/31/2024 1:43 PM CDT EXAM: US RENAL AND BLADDER DATE: 10/31/2024 HISTORY: See Reason for Exam; Acute Renal Failure COMPARISON: Outside CT of the abdomen and pelvis from 10/30/2024. TECHNIQUE: Real time and color-flow Doppler ultrasound of the kidneys. FINDINGS: Right kidney: 10.6. Left kidney: 10.3. The renal cortical thickness and parenchymal echogenicity are overall normal. There is a 2.9 x 2.4 x 2.3 cm mildly hypoechoic structure involving the left mid kidney which appears stable in size since the prior outside CT. A subcentimeter left renal cyst is also noted. The urinary bladder is partially decompressed. Thomas Santamaria MD US ORDERABLES Edited Result - Final * US ABDOMEN LIMITED (10/31/2024 1:32 PM CDT) Anatomical Region Laterality Modality Abdomen Ultrasound 10/31/2024 1:32 PM CDT Impressions 10/31/2024 1:45 PM CDT IMPRESSION: 1. Gallbladder sludge without other evidence of acute cholecystitis. DICTATION LOCATION: [facility] Narrative 10/31/2024 1:45 PM CDT EXAM: US ABDOMEN LIMITED DATE: 10/31/2024 HISTORY: See Reason for Exam; Elevated LFT's COMPARISON: Outside CT of the abdomen and pelvis from 10/30/2024. FINDINGS: The visible pancreatic body shows normal echogenicity. The liver is free of discrete mass or biliary dilation. Sludge is apparent in the gallbladder lumen. No sonographic Rizo sign, gallbladder wall thickening, or pericholecystic fluid is apparent. The common bile duct is not dilated. No ascites is present. Please see the separate report for the renal ultrasound performed the same time. Procedure Note Amadeo Mckeon MD - 10/31/2024 EXAM: US ABDOMEN LIMITED DATE: 10/31/2024 HISTORY: See Reason for Exam; Elevated LFT's COMPARISON: Outside CT of the abdomen and pelvis from 10/30/2024. FINDINGS: The visible pancreatic body shows normal echogenicity. The liver is free of discrete mass or biliary dilation. Sludge is apparent in the gallbladder lumen. No sonographic Rizo sign, gallbladder wall thickening, or pericholecystic fluid is apparent. The common bile duct is not dilated. No ascites is present. Please see the separate report for the renal ultrasound performed the same time. IMPRESSION: 1. Gallbladder sludge without other evidence of acute cholecystitis. DICTATION LOCATION: [facility] US ORDERABLES Final Result * EKG 12-LEAD (10/31/2024 9:44 AM CDT) 10/31/2024 9:44 AM CDT Narrative INTERFACE SYSTEM - 11/01/2024 7:20 AM CDT [address] [address] Test Date: 2024-10-31 Pat Name: WILIAN CUBA Department: 98 Room: [facility] Gender: Male Rewind Operator: [id number] : 1950 Requested By: ANNABELLE BLOCK Order Number: [id number] Reading MD: Matthew Avila Measurements Intervals [place] Rate: 86 P: 49 RI: 164 QRS: 23 QRSD: 102 T: 129 QT: 384 QTc: 459 Interpretive Statements Normal sinus rhythm Inferior infarct, age undetermined Abnormal ECG No previous ECG available for comparison Electronically Signed On 11-01-2024 7:20:22 CDT by Matthew Avila Procedure Note Provider, Historical - 11/01/2024 [place] [address] Test Date: 2024-10-31 Pat Name: WILIAN CUBA Department: 98 Room: [facility] Gender: Male Rewind Operator: [id number] : 1950 Requested By: ANNABELLE BLOCK Order Number: [id number] Reading MD: Matthew Avila Measurements Intervals [place] Rate: 86 P: 49 RI: 164 QRS: 23 QRSD: 102 T: 129 QT: 384 QTc: 459 Interpretive Statements Normal sinus rhythm Inferior infarct, age undetermined Abnormal ECG No previous ECG available for comparison Electronically Signed On 11-01-2024 7:20:22 CDT by Matthew Avila us Renee Pimentel HEALTH SAFETY INSTRUCTOR ECG ORDERABLES Final Result INTERFACE SYSTEM Refer to clinic/hospital department * (ABNORMAL) TROPONIN 2 HR, 5TH GEN (10/31/2024 9:18 AM CDT) TROPONIN T, 2 HR 5TH GEN 103(HH) <=15 ng/L 10/31/2024 10:35 AM CDT [facility] Blood Venipuncture / Unknown 10/31/2024 9:18 AM CDT 10/31/2024 9:33 AM CDT Narrative [facility] - 10/31/2024 10:35 AM CDT Troponin elevated. Unable to calculate delta. us Renee Pimentel HEALTH SAFETY INSTRUCTOR CHEMISTRY ORDERABLES Final Result [facility] CLIA# [id number] [address] [place] [address] * T4 FREE (10/31/2024 9:18 AM CDT) T4 FREE 1.67 0.93 - 1.70 ng/dL 10/31/2024 10:13 AM CDT [facility] Blood Venipuncture / Unknown 10/31/2024 9:18 AM CDT 10/31/2024 9:33 AM CDT Renee Pimentel HEALTH SAFETY INSTRUCTOR CHEMISTRY ORDERABLES Final Result Performing Organization Address City/[facility]/ZIP Co de Phone Number [facility] CLIA# [id number] [phone] [place] [address] * ACETAMINOPHEN LEVEL (10/31/2024 9:18 AM CDT) ACETAMINOPHEN LEVEL <5 0 - 30 ug/mL 10/31/2024 10:58 AM CDT [facility] Blood Venipuncture / Unknown 10/31/2024 9:18 AM CDT 10/31/2024 9:33 AM CDT Narrative [facility] - 10/31/2024 10:58 AM CDT Therapeutic Range: 10-30 ug/mL The following Acetaminophen levels are associated with possible toxicity: 4 hours after dose >200 ug/mL 8 hours after dose >100 ug/mL 12 hours after dose >50 ug/mL Linda Rowe DO CHEMISTRY ORDERABLES Final Re sult Performing Organization Address City/[facility]/ZIP Co de Phone Number [facility] CLIA# [id number] [place] [address] * (ABNORMAL) IRON, TIBC, AND PERCENT SATURATION (10/31/2024 7:22 AM CDT) IRON 252(H) 59 - 158 ug/dL 10/31/2024 9:22 AM CDT [facility] TIBC 319 261 - 462 ug/dL 10/31/2024 9:22 AM CDT [facility] IRON % SATURATION 79(H) 20 - 55 % 10/31/2024 9:22 AM CDT [facility] TRANSFERRIN 251 200 - 360 mg/dL 10/31/2024 9:22 AM CDT [facility] Blood Venipuncture / Unknown 10/31/2024 7:22 AM CDT 10/31/2024 7:41 AM CDT Renee Pimentel HEALTH SAFETY INSTRUCTOR CHEMISTRY ORDERABLES Final Result Performing Organization Address City/[facility]/ZIP Co de Phone Number [facility] CLIA# [id number] [place] [address] * (ABNORMAL) D-DIMER (10/31/2024 7:22 AM CDT) D-DIMER QUANT >20.00(H) <0.50 ug/mL FEU 10/31/2024 9:57 AM CDT [facility] Blood Venipuncture / Unknown 10/31/2024 7:22 AM CDT 10/31/2024 7:41 AM CDT Narrative [facility] - 10/31/2024 9:57 AM CDT D-Dimer assay cutoff value for exclusion of DVT and/or PE is <0.50 ug/mL FEU. As D-Dimer levels increase naturally with age, age stratification for patients over 50 is potentially more appropriate in determining whether a patient should undergo further evaluation for DVT and/or PE than a general cutoff of 0.50 ug/mL FEU. Clinical consideration is recommended. Age Stratified Cutoff Values: 50-60 years: 0.50-0.60 ug/mL FEU 61-70 years: 0.61-0.70 ug/mL FEU 71-80 years: 0.71-0.80 ug/mL FEU Renee Pimentel HEALTH SAFETY INSTRUCTOR HEMATOLOGY ORDERABLES Final Result Performing Organization Address City/[facility]/ZIP Co de Phone Number [facility] CLIA# [id number] [phone] [place] [address] * (ABNORMAL) TROPONIN (10/31/2024 7:22 AM CDT) [facility] TROPONIN T, 5TH GEN 117(HH) <=15 ng/L 10/31/2024 8:33 AM CDT [facility] Blood Venipuncture / Unknown 10/31/2024 7:22 AM CDT 10/31/2024 7:41 AM CDT Narrative [facility] - 10/31/2024 8:33 AM CDT Troponin elevated. Trever Cavazos MD CHEMISTRY ORDERABL ES Final Result [facility] CLIA# [id number] [place] [address] * (ABNORMAL) TSH (10/31/2024 7:22 AM CDT) [facility] TSH 6.43(H) 0.27 - 4.20 uIU/mL 10/31/2024 8:55 AM CDT [facility] Blood Venipuncture / Unknown 10/31/2024 7:22 AM CDT 10/31/2024 7:41 AM CDT Renee Pimentel NP CHEMISTRY ORDERABLES Final Result Performing Organization Address City/[facility]/ZIP Co de Phone Number [facility] CLIA# [id number] [place] [address] * (ABNORMAL) BRAIN NATRIURETIC PEPTIDE, BNP OR PROBNP (10/31/2024 7:22 AM CDT) [facility] PROBNP, N TERMINAL >70,000(H ) 0 - 1,800 pg/mL 10/31/2024 8:30 AM CDT [facility] Comment: INTERPRETIVE COMMENT based on diagnosis: Diagnostic NT pro-BNP cutoffs for Heart Failure in the absence of renal failure is suggested for the following ranges <75 years: <125 pg/mL >=75 years: <450 pg/mL Exclusionary rule out cut-point for Acute Decompensated Heart Failure(ADHF) All ages: <300 pg/mL Diagnostic NT pro-BNP cutoffs for Acute Decompensated Heart Failure(ADHF) in the absence of renal failure is suggested for the following ages <50 years: > 450 pg/mL 50-75 years: > 900 pg/mL >75 years: >1800 pg/mL Blood Venipuncture / Unknown 10/31/2024 7:22 AM CDT 10/31/2024 7:41 AM CDT Trever Cavazos MD CHEMISTRY ORDERABL ES Final Result Performing Organization Address City/[facility]/ZIP Co de Phone Number [facility]# [id number] [place] [address] * (ABNORMAL) HEMOGLOBIN A1C (10/31/2024 7:22 AM CDT) HEMOGLOBIN A1C 6.0(H) <=5.6 % 10/31/2024 8:48 AM CDT [facility] [employer] [facility] EST. AVG GLUCOSE, A1C 126 mg/dL 10/31/2024 8:48 AM CDT [facility] Blood Venipuncture / Unknown 10/31/2024 7:22 AM CDT 10/31/2024 7:44 AM CDT Narrative [facility] - 10/31/2024 8:48 AM CDT HGB A1C INTERPRETATION NORMAL: <5.7% PRE-DIABETES: 5.7 - 6.4% DIABETES: 6.5% OR GREATER Renee Pimentel NP CHEMISTRY ORDERABLES Final Result Performing Organization Address City/[facility]/ZIP Co de Phone Number [facility] [id number] [place] [address] * (ABNORMAL) RENAL FUNCTION PANEL (10/31/2024 7:22 AM CDT) SODIUM 134(L) 136 - 145 mmol/L 10/31/2024 8:55 AM T [facility] POTASSIUM 5.7(H) 3.4 - 5.1 mmol/L 10/31/2024 8:55 AM [facility] CHLORIDE 88(L) 98 - 107 mmol/L 10/31/2024 8:55 AM T [facility] CO2 12(L) 22 - 29 mmol/L 10/31/2024 8:55 AM [facility] CALCIUM 8.8 8.6 - 10.4 mg/dL 10/31/2024 8:55 AM [facility] BUN 74(H) 6 - 20 mg/dL 10/31/2024 8:55 AM T [facility] CREATININE 4.83(H) 0.67 - 1.17 mg/dL 10/31/2024 8:55 AM T [facility] Comment:The GFR result is no t clinically significant on patients <18 or >70 years of age. GLUCOSE 75 74 - 99 mg/dL 10/31/2024 8:55 AM [facility] ALBUMIN 4.0 3.5 - 5.2 g/dL 10/31/2024 8:55 AM [facility] PHOSPHORUS 10.5(H) 2.5 - 4.5 mg/dL 10/31/2024 8:55 AM [facility] GFR 12 mL/min/1.7 3 sq meter 10/31/2024 8:55 AM [facility] Comment:eGFR calculated with 2020 CKD-EPI equation. Vegetarian diet, extremely high or low muscle mass, and may affect results. Cystatin C with Glomerular Filtration Rate is a suitable alternative for these patients. ANION GAP 34(H) 8 - 16 mmol/L 10/31/2024 8:55 AM [facility] Blood Venipuncture / Unknown 10/31/2024 7:22 AM CDT 10/31/2024 7:41 AM CDT Thomas Santamaria MD CHEMISTRY ORDERABLES Final Resul t [facility] CLIA# [id number] [place] [address] * (ABNORMAL) LIPID PANEL (10/31/2024 7:22 AM CDT) CHOLESTEROL 146 <200 mg/dL 10/31/2024 9:06 AM CDT [facility] TRIGLYCERIDE 127 <150 mg/dL 10/31/2024 9:06 AM CDT [facility] HDL 35(L) 40 - 59 mg/dL 10/31/2024 9:06 AM CDT [facility] LDL CALCULATED 86 <100 mg/dL 10/31/2024 9:06 AM CDT [facility] NON-HDL CHOLESTEROL 111 <130 mg/dL 10/31/2024 9:06 AM T [facility] Blood Venipuncture / Unknown 10/31/2024 7:22 AM CDT 10/31/2024 7:41 AM CDT Narrative [facility] - 10/31/2024 9:06 AM CDT TOTAL CHOLESTEROL mg/dL Desirable <200 Borderline high 200-239 High >=240 TRIGLYCERIDES mg/dL Normal <150 Borderline high 150-199 High 200-499 Very high >=500 HDL CHOLESTEROL mg/dL Low <40 Normal 40-59 Desirable >=60 NON HDL CHOLESTEROL mg/dL Optimal <130 Near Optimal 130-159 Borderline High 160-189 Very High >=190 CALCULATED LDL mg/dL LDL <70, OPTIMAL if have Atherosclerotic cardiovascular disease (ASCVD) or intermediate or higher (>7.5%) 10 year risk of ASCVD including most adults with diabetes. LDL <100, Optimal in adult patients with low (<7.5%) 10 year ASCVD risk LDL 100-160, Suboptimal LDL >160, High LDL >190, Very high LDL calculated using the Friedewald equation. ATPIII Guidelines Reference Ranges for Lipid Panels (NCEP/AMA) . Renee Pimentel HEALTH SAFETY INSTRUCTOR CHEMISTRY ORDERABLES Final Result Performing Organization Address City/[facility]/ZIP Co de Phone Number [facility] CLIA# [id number] [place] [address] * CT PRIOR STUDY (10/30/2024 11:20 AM CDT) [facility] - 10/31/2024 6:03 AM CDT This exam was auto finalized to allow images to be scanned to PACS. External Provider [facility] CT ORDERABLES Final Res ult Performing Organization Address [facility] Co de Phone Number [facility] CLIA # [id number] [phone] [place] [address] * XR PRIOR STUDY (10/30/2024 10:15 AM CDT) Only the most recent of2 resultswithin the time period is included. [facility] - 10/31/2024 6:04 AM CDT This exam was auto finalized to allow images to be scanned to PACS. External Provider [facility] DIAGNOSTIC IMAGING ORDERA BLES Final Result Performing Organization Address [facility] Co de Phone Number [facility] CLIA # [id number] [place] [address] from Last 3 Months Insurance [employer] [facility] Advance Directives For more information, please contact: [phone] * NO CPR (In Event of Cardiopulmonary Arrest) (Latest Code Status on File) Date Activated Date Inactivated Comments 11/01/2024 1:39 PM 11/02/2024 12:48 AM Question Answer Comments Mechanical Ventilation (for respiratory distress) - Invasive (i.e. intubation): No Mechanical Ventilation (for respiratory distress) - Non-Invasive (i.e. BiPAP, CPAP): Yes * Full Code Date Activated Date Inactivated Comments 10/31/2024 4:25 AM 11/01/2024 1:39 PM Care Teams Claim Review Medical Director Relationship Specialty Start Date End Date Regis Barros DO [address] [place] [address] PCP - General Family Practice 10/31/24
[2024-11-20 14:30] LABS: Alanine Aminotransferase 63 U/L (6-50); Albumin Level 3.2 g/dL (3.5-5.1); Alkaline Phosphatase 110 U/L (38-126); Anion Gap 4 mmol/L (4-12); Aspartate Amino Transferase 60 U/L (17-59); Bilirubin,Total 0.8 mg/dL (0.2-1.3); Blood Urea Nitrogen 12 mg/dL (9-20); Calcium 8.6 mg/dL (8.4-10.2); Carbon Dioxide 25 mmol/L (22-30); Chloride 102 mmol/L (98-107); Estimated Glomerular Filt Rate > 60; Glucose 132 mg/dL (65-110); Magnesium 1.8 mg/dL (1.6-2.3); Osmolality Calculated 273 mOsm/kg (285-295); Potassium 4.3 mmol/L (3.4-5.0); Sodium 131 mmol/L (137-145); Total Protein 5.9 g/dL (6.3-8.2)
== END 2024-11-20 13:49 | disposition home or self-care (01) ==
LOC: CHSLAB 13:49
PROVIDERS: PCP Family Medicine; Visit Provider Family Medicine
DX: I50.9 Heart failure, unspecified (principal)
CPT/HCPCS: 36415; 80053; 83735; 84100